=== PATIENT | female | born 1980 | race Caucasian/White ===

== ENCOUNTER → 2017-12-19 06:48 | Outpatient (CLI) | payer OTHER, SELFPAY ==
--- NOTE | 2017-12-19 06:55 | NM_ITS ---
CARDIOLITE SPECT MYOCARDIAL PERFUSION SCAN, REST AND STRESS: EXERCISE STRESS [facility] REVIEW QGS EF AND WALL MOTION EVALUATION: QPS - PERFUSION EVALUATION HISTORY: Chest pain, SOB, DM, Tobacco use DOSE: 9.53 mCi technetium 99m mibi intravenously at rest followed by 29.6 mCi technetium 99m mibi following the intravenous ministration of 0.4 mg of Lexiscan. Resting blood pressure is 127/76. Stress blood pressure 121/69. FINDINGS: Ejection fraction is calculated to be 69%. Decreased activity in the anterior wall with both stress and rest. Gated images calculated ejection fraction 69% with mid anterior apical dyskinesis. IMPRESSION: Anterior defect is consistent with breast attenuation however this could also represent a previous anterior transmural myocardial infarction. Gated images do suggest mid anterior apical defect suggestive of ischemia. Clinical correlation is advised. Normal ejection fraction
--- NOTE | 2017-12-19 07:48 | HMH.ITSHM ---
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 []SAPHRIS BENEFIBER BUSPAR VITAMIN D LEVOTHYROXINE LIPITOR LITHIUM METOPROLOL ASA PRAZOSIN PROZAC XANAX VISTRARIL LINZESS MIRALAX OXYBUTYNIN FOLIC ACID VITAMIN B12 PREVACID METFORMIN
== END ==
PROVIDERS: PCP Nurse Practitioner Family; Visit Provider Physician Assistant
DX: R07.9 Chest pain, unspecified (principal); I10 Essential (primary) hypertension; E78.5 Hyperlipidemia, unspecified
CPT/HCPCS: 78452; 93017; A9502; J2785

== ENCOUNTER → 2018-01-15 15:29 | Outpatient (CLI) | payer OTHER, SELFPAY ==
[2018-01-15 16:12] LABS: Blood Urea Nitrogen 5 mg/dL (7-18); Calcium 8.8 mg/dL (8.5-10.1); Carbon Dioxide 29 mmol/L (21.0-32.0); Chloride 101 mmol/L (98-107); Creatinine,Serum 1.07 mg/dL (0.55-1.02); Estimated Glomerular Filt Rate 57 ml/min (>60); GFR (African American) 69 ML/MIN (>60); Glucose 102 mg/dL (74-106); Magnesium 1.8 mg/dL (1.4-2.2); Sodium 139 mmol/L (136-145)
== END ==
PROVIDERS: Visit Provider Physician Assistant
DX: R60.9 Edema, unspecified (principal)
CPT/HCPCS: 36415; 80048; 83735

== ENCOUNTER 2022-10-29 09:28 | Emergency (ER) | payer OTHER, SELFPAY ==
--- NOTE | 2022-10-29 09:34 | EXP.UTC ---
Discharge Plan Disposition Patient Disposition: Home, Self-Care Condition: Good Prescriptions Prescriptions: New benzonatate [benzonatate] 100 mg capsule 100 mg PO TIDP PRN (Reason: Cough) Qty: 30 0RF amoxicillin [amoxicillin] 875 mg tablet 875 mg PO Q12H Qty: 20 0RF No Action cyclobenzaprine 10 mg tablet 10 mg PO NEEDED PRN (Reason: Pain (Scale Score 1-3)) Patient Comments: TAKE 1 TABLET BY MOUTH EVERY 8 HOURS NEEDED FOR PAIN OR MUSCLE SPASMS Rx Instructions: TAKE 1 TABLET BY MOUTH EVERY 8 HOURS NEEDED FOR PAIN atorvastatin 80 mg tablet 80 mg PO DAILY Patient Comments: TAKE 1 TABLET BY MOUTH EVERY DAY alprazolam 1 mg tablet 1 mg PO TID Patient Comments: TAKE 1 TABLET BY MOUTH 3 TIMES DAILY metoprolol succinate 50 mg tablet extended release 24 hr 75 mg PO DAILY Patient Comments: TAKE 1 AND 1/2 TABLETS BY MOUTH EVERY DAY prazosin 1 mg capsule 2 mg PO DAILY Patient Comments: TAKE 2 CAPSULES BY MOUTH EVERY EVENING isosorbide mononitrate 30 mg tablet extended release 24 hr 30 mg PO DAILY Patient Comments: TAKE 1 TABLET BY MOUTH EVERY DAY potassium chloride 10 mEq tablet extended release 10 meq PO DAILY Patient Comments: TAKE 1 TABLET BY MOUTH EVERY DAY *EMERGENCY REFILL* esomeprazole magnesium 40 mg capsule,delayed release(DR/EC) 40 mg PO DAILY Patient Comments: TAKE 1 CAPSULE BY MOUTH EVERY DAY levothyroxine 125 mcg tablet 125 mcg PO DAILY Patient Comments: TAKE 1 TABLET BY MOUTH EVERY MORNING ON AN EMPTY STOMACH estradiol 2 mg tablet 2 mg PO DAILY Patient Comments: TAKE 1 TABLET BY MOUTH DAILY furosemide 20 mg tablet 20 mg PO NEEDED PRN (Reason: .) Patient Comments: TAKE 1 TABLET BY MOUTH EVERY DAY NEEDED FOR SWELLING paroxetine HCl 40 mg tablet 20 mg PO DAILY Patient Comments: TAKE 1/2 TABLET BY MOUTH EVERY NIGHT AT BEDTIME FOR 10 DAYS THEN TAKE 1 TABLET BY MOUTH AT BEDTIME THEREAFTER metformin 500 mg tablet extended release 24 hr 500 mg PO DAILY Patient Comments: TAKE 1 TABLET BY MOUTH EVERY DAY lamotrigine 100 mg tablet 100 mg PO BID Patient Comments: TAKE 1 TABLET BY MOUTH TWICE DAILY prazosin 2 mg capsule 8 mg PO DAILY Patient Comments: TAKE FOUR (4) CAPSULES BY MOUTH AT BEDTIME desvenlafaxine succinate 100 mg tablet extended release 24 hr 100 mg PO DAILY Patient Comments: TAKE 1 TABLET BY MOUTH EVERY MORNING icosapent ethyl 1 gram capsule 2 g PO BID Patient Comments: TAKE 2 CAPSULES BY MOUTH TWICE DAILY armodafinil 200 mg tablet 200 mg PO DAILY Patient Comments: TAKE 1 TABLET BY MOUTH DAILY Vraylar 3 mg capsule 3 mg PO DAILY Emgality Syringe 120 mg/mL syringe 120 mg SQ MONTHLY Patient Comments: INJECT 120 MG SUBCUTANEOUSLY EVERY MONTH Nurtec ODT 75 mg tablet,disintegrating See Rx Instructions .ROUTE .COMPLEX Patient Comments: TAKE 1 TABLET BY MOUTH EVERY OTHER DAY Rx Instructions: TAKE 1 TABLET BY MOUTH EVERY OTHER DAY Gemtesa 75 mg tablet 75 mg PO DAILY Patient Comments: TAKE 1 TABLET BY MOUTH EVERY DAY Referrals Follow up/Referrals: Deadnra Lopez PA [Primary Care Provider] - See instructions Activity Restrictions/Add. Instructions Additional Instructions/Restrictions: Drink plenty of fluids. Take tylenol or ibuprofen for pain or fever. Take the medications as directed. Follow up with your regular doctor. GO TO THE ER FOR ANY WORSENING SYMPTOMS Clinical Impressions Clinical Impression: Sinusitis, Acute viral syndrome Instructions Patient Instructions: DI for Sinusitis, DI for Viral Syndrome, Coronavirus Disease 2019, Preventing the Spread of Coronavirus Discharge Instructions Discharge ED Provider: John Batista [facility] [place] General Stated complaint: c
[2022-10-29 09:35] VITALS: BP 140/63; PULSE 81; RESP 19; TEMP 36.6; O2SAT 98; BMI 36.8
[2022-10-29 09:51] LABS: UTC Strep Screen (Rapid) Negative (Negative)
[2022-10-29 10:21] VITALS: BP 140/63; PULSE 81; RESP 19; TEMP 36.6; O2SAT 98
== END 2022-10-29 10:21 | disposition home or self-care (01) ==
PROVIDERS: Emergency Provider Nurse Practitioner Family; PCP Nurse Practitioner Family
DX: J01.90 Acute sinusitis, unspecified (principal); B34.8 Other viral infections of unspecified site
CPT/HCPCS: 87635; 87880; 99204; 99212; G0463

== ENCOUNTER 2024-07-15 11:31 | Outpatient (CLI) | payer OTHER, SELFPAY ==
--- OUTSIDE RECORDS SUMMARY | 2024-05-22 10:39 | XMS_ITS | Encounter Summary ---
Author Organization [facility] RELEASEIF In iatives Address [address] [place] [address] Care Team Providers Care Telephone Station Repairer Name Role Phone Deandra Lopez APRN Primary Care Provider [phone] Reason for Visit * Auth/Cert (Routine) Specialty Diagnoses / Procedures Referred By Contac t Referred To Contact Diagnoses Abnormal defecation Abnormal defecation Procedures OH EXPLORATORY LAPAROTOMY CELIOTOMY W/WO BIOPSY SPX LAPAROTOMY, EXPLORATORY Heath Robledo MD [address] [place] [address] [address] [place] [address] Phone: tel: fax: Referral ID Status Reason Start Date Expiration Date Visits Re quested Visits Authorized [id number] 04/16/2024 1 1 Encounter Details Date Type Department Care Team (Late st Contact Info) Description 05/22/2024 10:39 AM EDT - 05/25/2024 5:00 PM EDT Hospital Encounter [facility] [address] [place] [address] Heath Robledo MD [address] [place] [address] [address] [place], [place] [id number] Aristides Pickering PA-C [facility] [address] [facility] [address] [place], [place] [id number] Carey Monroy PA-C [address] [place] [address] Ac Wilks MD [address] [facility] [address] [place], [place] [id number] Per Anderson MD [address] [facility] [address] [place], [place] [id number] Abnormal defecation Discharge Disposition: Home or Self Care Social History Tobacco Use Types Packs/Day Years Used Date Smoking Tobacco: Former Cigarettes Smokeless Tobacco: Never Alcohol Use Standard Drinks/Week Comments Never 0 (1 standard drink = 0.6 oz pur e alcohol) caffeine use PHQ-2 Answer Date Recorded Patient Health Questionnaire-2 Score 6 05/14/2024 Utilities Answer Date Recorded In the past 12 months, has t he electric, gas, oil, or water company threatened to shut off services in your home? No 05/22/2024 Interpersonal Safety Answer Date Record ed How often does anyone, ariela bella family and friends, physically hurt you? Never 05/22/2024 How often does anyone, ariela bella family and friends, insult or talk down to you? Never 05/22/2024 How often does anyone, ariela bella family and friends, threaten you with harm? Never 05/22/2024 How often does anyone, ariela bella family and friends, scream or curse at you? Never 05/22/2024 Housing Stability Answer Date Recorded What is your living situation today? I have a [facility] place to live 05/22/[address] you li ve. Do you have problems with any of the following? None of the above 05/22/2024 Food Insecurity Answer Date Recorded Within the past 12 months, y ou worried that your food would run out before you got money to buy more. Never true 05/22/2024 Within the past 12 months, t he food you bought just didn't last and you didn't have money to get more. Never true 05/22/2024 Transportation Needs Answer Date Record ed In the past 12 months, has l ack of reliable transportation kept you from medical appointments, meetings, work or from getting things needed for daily living? No 05/22/2024 Financial Resource Strain Answer Date R ecorded How hard is it for you to pa y for the very basics like food, housing, medical care, and heating? Would you say it is: Not hard at all 05/22/2024 Employment Answer Date Recorded Do you want help finding or keeping work or a job? I do not need or want help 05/22/2024 Family and Community Support Answer Clinton e Recorded If for any reason you need h elp with day-to-day activities such as bathing, preparing meals, shopping, managing finances, etc., do you get the help you need? I don't need any help 05/22/2024 Feeling Lonely or Isolated 0 05/22 Educational Attainment Answer Date Danyel rded Do you speak a language other than [place]ian at [facility]? No 05/22/2024 Do you want help with school or training? For example, starting or completing job training or getting a high school diploma, GED or equivalent. No 05/22/2024 Physical Activity Answer Date Recorded Number of minutes of exercise per week 0 05/22/2024 Alcohol Use Answer Date Recorded 5 or More Drinks Per Day Past 12 Months 0 05/22/2024 Depression Answer Date Recorded Calculation of above two rows 0 Stress Answer Date Recorded Stress means a situation in which a person feels tense, restless, nervous, or anxious, or is unable to sleep at night because his or her mind is troubled all the time. Do you feel this kind of stress these days? Not at all 05/22/2024 Disabilities Answer Date Recorded Because of a physical, menta l, or emotional condition, do you have serious difficulty concentrating, remembering, or making decisions? (5 years or older) No 05/22/2024 Because of a physical, menta l, or emotional condition, do you have difficulty doing errands alone such as visiting a doctor's office or shopping? (15 years or older) No 05/22/2024 Substance Use Answer Date Recorded How many times in the past y ear have you used prescription drugs for non-medical reasons? Never 05/22/2024 How many times in the past year have you used [place] legal drugs? Never 05/22/2024 Comments No Sex and Gender Information Value Date Recorded Sex Assigned at Female 12/08/2021 2:39 PM CDT Legal Sex Female 5:20 PM CDT Gender Identity Female 12/08/2021 2:39 PM CDT Sexual Orientation Straight 12/08/2021 2: 39 PM CDT documented as of this encounter Last Filed Vital Signs Vital Sign Reading Time Taken Comments Blood Pressure 113/65 05/25/2024 9:33 AM EDT Pulse 63 05/25/2024 9:33 AM EDT Temperature 36.7 C (98.1 F) 05/25/2024 9:33 AM EDT Respiratory Rate 19 05/25/2024 9:33 AM EDT Oxygen Saturation 98% 05/25/2024 9:33 AM EDT Inhaled Oxygen Concentration - - Weight 81.1 kg (178 lb 12.7 oz) 05/22/2024 8:24 PM EDT Height 165.1 cm (5' 5 ) 05/23/2024 2:19 PM EDT Body Mass Index 29.75 05/22/2024 8:24 PM EDT documented in this encounter Discharge Summaries * Per Anderson MD - 05/25/2024 1:06 PM EDT HOSPITALIST DISCHARGE SUMMARY Patient: Demetra Diaz Date of Admission: 05/22/2024 Date of Discharge: 05/25/2024 Primary Care Provider: @PCPENAME@ Hospital Problem List Patient Active Problem List Diagnosis Anxiety Chest pain CPAP (continuous positive airway pressure) dependence Depression Diabetes (HCC) Dizziness WIGGINS (dyspnea on exertion) Edema GERD (gastroesophageal reflux disease) HLD (hyperlipidemia) HTN (hypertension) Hypothyroidism IBS (irritable bowel syndrome) Migraines BETTY (obstructive sleep apnea) PTSD (post-traumatic stress disorder) Tachycardia Vitamin D deficiency Constipation Summary of Hospital Stay: Persistent hypotension resolved. 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 - informed to limit free water 6 cups daily , & watch for Stoma out put , instructions were given written - Hemoglobin has been stable 10 Status post ex lap end ileostomy creation 05/22/2024. -Dr. Robledo following is okay with discharge. Stoma is functioning well Diabetes hyperlipidemia - Insulin sliding scale - Continue gabapentin continue statin Hypertension Resume home medication metoprolol and prazosin. Hypothyroidism Continue Synthroid Depression/anxiety/mood disorders: Continue home Xanax continue Pristiq continue Lamictal continue armodafinil Abilify Bladder dysfunction - DC Batres continue mirabegron Diet: Orders Placed This Encounter Procedures NPO diet DVT ppx: SCDs PUD ppx: PPI Code Status: Full Code MDM: CT abd , hgb, Vitals are all stable, Na 126 can be follwoed as OP likely temporary drop due toSIADH & GI loss. Discharge Planning: May go home when blood pressure stable. Objective Vitals: Temp: [97.5 ??F (36.4 ??C)-98.6 ??F (37 ??C)] 98.1 ??F (36.7 ??C) Pulse: [58-70] 63 Resp: [16-19] 19 BP: (91-113)/(52-74) 113/65 Physical exam on day of discharge: HEENT eyes are clear and oropharynx clear Neck no JVD bruit Heart RRR without MRG Lungs CTAB Abdomen positive bowel sounds, ostomy noted in right lower quadrant, no bleeding, skin appears healthy Extremities no edema Neuro nonfocal Mental status exam awake alert and oriented Labs: Results for orders placed or performed during the hospital encounter of 05/22/24 (from the past 24 hours) CBC - Hemogram Status: Abnormal Collection Time: 05/24/24 1:18 PM Result Value Ref Range WBC 8.7 4.0 - 10.0 K/??L RBC 2.98 (L) 3.93 - 5.22 M/??L Hemoglobin 8.8 (L) 11.2 - 15.7 GM/DL Hematocrit 25.6 (L) 34.1 - 44.9 % MCV 86 79 - 95 fL MCH 29.5 25.6 - 32.2 pg MCHC 34.4 32.2 - 35.5 GM/DL RDW 12.0 11.7 - 14.4 % Platelets 240 140 - 375 K/CU MM MPV 9.1 (L) 9.4 - 12.3 fL Basic Metabolic Panel Status: Abnormal Collection Time: 05/24/24 1:18 PM Result Value Ref Range Sodium 125 (L) 136 - 145 meq/L Potassium 4.5 3.4 - 5.1 meq/L CO2 23 22 - 29 meq/L Chloride 97 (L) 98 - 112 meq/L Glucose 92 74 - 100 mg/dL BUN 4.6 (L) 7.0 - 18.7 mg/dL Creatinine 0.72 0.57 - 1.11 mg/dL BUN/Creatinine 6 (L) 8 - 20 Calcium 8.1 (L) 8.4 - 10.2 mg/dL Anion Gap 10 4 - 12 eGFR (mL/min/1.73m2) 105 >=60 mL/min/1.73m2 Osmolality Calc 248.3 mOsm/kg Prepare RBC: 2 Units Status: None Collection Time: 05/24/24 3:21 PM Result Value Ref Range Issue Date/Time [id number] Product Identification Red Blood Cells Product Code L5094A26 Status Information Transfused Unit Number [id number] Blood Type 5100 Cross Match Results Compatible Glucose, Nova Meter Status: None Collection Time: 05/24/24 4:35 PM Result Value Ref Range POC-GLUCOSE 98 70 - 110 mg/dL Hand Brush Filler [id number] Glucose, Nova Meter Status: None Collection Time: 05/25/24 12:01 AM Result Value Ref Range POC-GLUCOSE 101 70 - 110 mg/dL Hand Brush Filler [id number] Hemoglobin and hematocrit Status: Abnormal Collection Time: 05/25/24 1:24 AM Result Value Ref Range Hemoglobin 9.7 (L) 11.2 - 15.7 GM/DL Hematocrit 28.6 (L) 34.1 - 44.9 % Phosphorus Status: Normal Collection Time: 05/25/24 1:24 AM Result Value Ref Range Phosphorus 3.6 2.5 - 4.5 mg/dL Glucose, Nova Meter Status: None Collection Time: 05/25/24 6:06 AM Result Value Ref Range POC-GLUCOSE 102 70 - 110 mg/dL Hand Brush Filler [id number] CBC with automated diff Status: Abnormal Collection Time: 05/25/24 6:09 AM Result Value Ref Range WBC 6.7 4.0 - 10.0 K/??L RBC 3.57 (L) 3.93 - 5.22 M/??L Hemoglobin 10.3 (L) 11.2 - 15.7 GM/DL Hematocrit 30.2 (L) 34.1 - 44.9 % MCV 85 79 - 95 fL MCH 28.9 25.6 - 32.2 pg MCHC 34.1 32.2 - 35.5 GM/DL RDW 14.0 11.7 - 14.4 % Platelets 212 140 - 375 K/CU MM MPV 9.3 (L) 9.4 - 12.3 fL % Neutros 60 34 - 71 % % Lymphs 26 19 - 52 % % Monos 7 5 - 13 % % Eos 6 1 - 6 % % Baso 1 0 - 1 % NRBC Absolute <0.01 0 - 0.012 K/ul # Neutros 4.03 1.56 - 6.13 K/??L # Lymphs 1.72 1.18 - 3.74 K/??L # Monos 0.45 0.24 - 0.86 K/??L # Eos 0.43 (H) 0.04 - 0.36 K/??L # Baso 0.04 0.01 - 0.08 K/??L Immature Granulocytes-Relative 0.30 0.01 - 0.43 % # IG <0.03 0.00 - 0.03 K/uL Basic Metabolic Panel Status: Abnormal Collection Time: 05/25/24 6:09 AM Result Value Ref Range Sodium 126 (L) 136 - 145 meq/L Potassium 4.3 3.4 - 5.1 meq/L CO2 21 (L) 22 - 29 meq/L Chloride 97 (L) 98 - 112 meq/L Glucose 90 74 - 100 mg/dL BUN 6.6 (L) 7.0 - 18.7 mg/dL Creatinine 0.79 0.57 - 1.11 mg/dL BUN/Creatinine 8 8 - 20 Calcium 8.3 (L) 8.4 - 10.2 mg/dL Anion Gap 12 4 - 12 eGFR (mL/min/1.73m2) 94 >=60 mL/min/1.73m2 Osmolality Calc 250.7 mOsm/kg Glucose, Nova Meter Status: None Collection Time: 05/25/24 12:42 PM Result Value Ref Range POC-GLUCOSE 83 70 - 110 mg/dL Hand Brush Filler [id number] Radiology: CT ABDOMEN/PELVIS WITHOUT IV CONTRAST Standard Protocol Final Result Expected postoperative findings. Small amount of hemoperitoneum in the pelvis. Images reviewed, interpreted and dictated by Dr. John Edouard MD XR chest AP portable Final Result Hypoaeration and pulmonary vascular congestion. SINGLE VIEW ABDOMEN HISTORY: Abdominal pain. FINDINGS: ABDOMEN: Single view of the abdomen demonstrates a nonspecific bowel gas pattern. No abnormal calcifications.Cholecystectomy clips are present. IMPRESSION: Nonspecific bowel gas pattern. Images reviewed, interpreted, and dictated by Dr. Janusz Murray. Transcribed by Jarrod Ruiz PA-C. XR KUB PORTABLE Final Result Hypoaeration and pulmonary vascular congestion. SINGLE VIEW ABDOMEN HISTORY: Abdominal pain. FINDINGS: ABDOMEN: Single view of the abdomen demonstrates a nonspecific bowel gas pattern. No abnormal calcifications.Cholecystectomy clips are present. IMPRESSION: Nonspecific bowel gas pattern. Images reviewed, interpreted, and dictated by Dr. Janusz Murray. Transcribed by Jarrod Ruiz PA-C. Discharge Information Medications on Discharge: Your medication list START taking these medications Instructions Comments Quantity Refills acetaminophen 500 MG tablet Commonly known as: TYLENOL Take 2 tablets (1,000 mg total) by mouth every 6 (six) hours for 10 days. 30 tablet 0 ondansetron 4 MG disintegrating tablet Commonly known as: ZOFRAN-ODT Take 1 tablet (4 mg total) by mouth every 8 (eight) hours as needed for nausea or vomiting for up to 7 days. 20 tablet 0 oxyCODONE 5 MG immediate release tablet Commonly known as: ROXICODONE Take 1 tablet (5 mg total) by mouth every 4 (four) hours as needed for up to 3 days Look-alike/Sound-alike medication. Max Daily Amount: 30 mg 20 tablet 0 potassium, sodium phosphates 280-160-250 mg Pwpk packet Commonly known as: PHOS-NAK Take 1 packet by mouth 2 (two) times daily for 5 days. 10 packet 0 simethicone 80 MG chewable tablet Commonly known as: MYLICON Take 1 tablet (80 mg total) by mouth every 6 (six) hours as needed for up to 10 days. 30 tablet 0 CONTINUE taking these medications Instructions Comments Quantity Refills Aimovig Autoinjector 140 mg/mL Atin Generic drug: erenumab-aooe Inject 70 mg under the skin every 30 (thirty) days. 0 ALPRAZolam 1 MG tablet Commonly known as: XANAX Take 1 tablet (1 mg total) by mouth 2 (two) times daily. Max Daily Amount: 2 mg 0 armodafiniL 200 mg Tab Take 1 tablet by mouth daily. 0 atorvastatin 80 MG tablet Commonly known as: LIPITOR Take 1 tablet (80 mg total) by mouth nightly. 0 cyanocobalamin 500 MCG tablet Take 1 tablet (500 mcg total) by mouth daily. 0 desvenlafaxine 100 MG 24 hr tablet Commonly known as: PRISTIQ Take 1 tablet (100 mg total) by mouth daily. 0 esomeprazole 40 MG capsule Commonly known as: NexIUM Take 1 capsule (40 mg total) by mouth daily. 0 estradioL 0.1 mg/24 hr patch Commonly known as: CLIMARA Place 1 patch on the skin once a week. 0 famotidine 40 MG tablet Commonly known as: PEPCID Take 1 tablet (40 mg total) by mouth nightly. 0 furosemide 20 MG tablet Commonly known as: LASIX Take 1 tablet (20 mg total) by mouth daily as needed. 0 gabapentin 300 MG capsule Commonly known as: NEURONTIN Take 1 capsule (300 mg total) by mouth nightly. 0 icosapent ethyL 1 gram Cap capsule Commonly known as: VASCEPA Take 2 capsules (2 g total) by mouth 2 (two) times daily. 0 isosorbide mononitrate 30 MG 24 hr tablet Commonly known as: IMDUR Take 1 tablet (30 mg total) by mouth daily. 30 tablet 10 lamoTRIgine 150 MG tablet Commonly known as: LaMICtal Take 1 tablet (150 mg total) by mouth 2 (two) times daily. 0 levothyroxine 125 MCG tablet Commonly known as: SYNTHROID Take 1 tablet (125 mcg total) by mouth Every morning on an empty stomach. 0 metoprolol succinate 50 MG 24 hr tablet Commonly known as: TOPROL-XL Take 1 tablet (50 mg total) by mouth 2 (two) times daily. 0 Myrbetriq 50 mg Tb24 ER tablet Generic drug: mirabegron Take 1 tablet (50 mg total) by mouth daily. 0 Nurtec ODT 75 mg Tbdl Generic drug: rimegepant Take 1 tablet by mouth every other day. 0 potassium chloride 20 mEq CR tablet Commonly known as: KLOR-CON Take 1 tablet (20 mEq total) by mouth daily as needed. 0 prazosin 2 MG capsule Commonly known as: MINIPRESS Take 3 capsules (6 mg total) by mouth nightly. 0 Rexulti 2 mg Tab tablet Generic drug: brexpiprazole Take 1 tablet (2 mg total) by mouth daily. 0 Where to Get Your Medications These medications were sent to [address] [place] [address] [facility] [address] [facility] [address] acetaminophen 500 MG tablet ondansetron 4 MG disintegrating tablet oxyCODONE 5 MG immediate release tablet potassium, sodium phosphates 280-160-250 mg Pwpk packet simethicone 80 MG chewable tablet Contact information for follow-up Primary care provider (PCP) Next Steps: Follow up Deandra Lopez APRN Specialty: Nurse Practitioner Relationship: PCP - General [address] [facility] [address] Next Steps: Follow up [facility] Nurse Next Steps: Follow up in 3 day(s) Heath Robledo MD Specialty: Colon and Rectal Surgery [facility] [facility] [address] [facility] [address] Next Steps: Follow up in 1 week(s) Discharge Disposition:Home Time spent on Discharge: > 30 minutes Signed: Electronically signed by Per Anderson MD - 05/25/2024 - 1:06 PM EDT [facility] documented in this encounter Discharge Instructions * Attachments The following attachments cannot be sent through Care Everywhere. * Exploratory Laparotomy Adult Care After (Slovenian) * Ileostomy Care After (Slovenian) * Ileostomy Home Guide (Slovenian) * Ondansetron Tablets (Slovenian) * Oxycodone Capsules or Tablets (Slovenian) * SIMETHICONE ORAL TABLET (KYRGYZ) * Potassium Phosphate; Sodium Phosphate Solution (Slovenian) documented in this encounter Medications at Time of Discharge ALPRAZolam (XANAX) 1 MG tablet Take 1 tablet (1 mg total) by mouth 2 (two) times daily as needed for anxiety. armodafiniL 200 mg Tab Take 1 tablet by mouth daily. 04/04/2022 atorvastatin (LIPITOR) 80 MG tablet Take 1 tablet (80 mg total) by mouth nightly. cyanocobalamin 500 MCG tablet Take 1 tablet (500 mcg total) by mouth daily. desvenlafaxine succinate (PRISTIQ) 100 MG 24 hr tablet Take 1 tablet (100 mg total) by mouth daily. esomeprazole (NexIUM) 40 MG capsule Take 1 capsule (40 mg total) by mouth daily. 02/25/2022 estradioL (CLIMARA) 0.1 mg/[address] 1 patch on the skin once a week. icosapent ethyL (VASCEPA) 1 gram capsule Take 2 capsules (2 g total) by mouth 2 (two) times daily. 03/29/2022 isosorbide mononitrate (IMDUR) 30 MG 24 hr tabletIndications:Hy pertension, unspecified type Take 1 tablet (30 mg total) by mouth daily. 30 tablet 10 01/08/2024 lamoTRIgine (LaMICtal) 150 MG tablet Take 1 tablet (150 mg total) by mouth 2 (two) times daily. levothyroxine (SYNTHROID, LEVOTHROID) 125 MCG tablet Take 1 tablet (125 mcg total) by mouth Every morning on an empty stomach. metoprolol succinate (TOPROL-XL) 50 MG 24 hr tablet Take 1 tablet (50 mg total) by mouth 2 (two) times daily. potassium chloride (KLOR-CON) 20 mEq CR tablet Take 1 tablet (20 mEq total) by mouth daily as needed Take with Lasix as directed. 03/25/2022 prazosin (MINIPRESS) 2 MG capsule Take 3 capsules (6 mg total) by mouth nightly. gabapentin (NEURONTIN) 300 MG capsule Take 1 capsule (300 mg total) by mouth nightly. 11/21/2023 5 ondansetron (ZOFRAN-ODT) 4 MG disintegrating tablet Take 1 tablet (4 mg total) by mouth every 8 (eight) hours as needed for nausea or vomiting for up to 7 days. 20 tablet 05/25/2024 5 oxyCODONE (ROXICODONE) 5 MG immediate release tablet Take 1 tablet (5 mg total) by mouth every 4 (four) hours as needed for up to 3 days Look-alike/S ound-alike medication. Max Daily Amount: 30 mg 20 tablet 05/25/2024 5 potassium, sodium phosphates (PHOS-NAK) 280-160-250 mg pwpk packet Take 1 packet by mouth 2 (two) times daily for 5 days. 10 packet 05/25/2024 5 acetaminophen (TYLENOL) 500 MG tablet Take 2 tablets (1,000 mg total) by mouth every 6 (six) hours for 10 days. 30 tablet 05/25/2024 5 Aimovig Autoinjector 140 mg/mL AtIn Inject 70 mg under the skin every 30 (thirty) days. 09/22/2023 5 famotidine (PEPCID) 40 MG tablet Take 1 tablet (40 mg total) by mouth nightly. 10/03/2023 5 furosemide (LASIX) 20 MG tablet Take 1 tablet (20 mg total) by mouth daily as needed (for Edema/Swelling ). 03/24/2022 5 Myrbetriq 50 mg Tb24 ER tablet Take 1 tablet (50 mg total) by mouth daily. 03/28/2023 5 Nurtec ODT 75 mg TbDL Take 1 tablet by mouth every other day. 03/26/2022 5 Rexulti 2 mg tab tablet Take 1 tablet (2 mg total) by mouth daily. 08/24/2023 5 simethicone (MYLICON) 80 MG chewable tablet Take 1 tablet (80 mg total) by mouth every 6 (six) hours as needed for up to 10 days. 30 tablet 05/25/2024 5 documented as of this encounter Progress Notes * Heath Robledo MD - 05/25/2024 10:33 AM EDT CRS note: Looking and feeling much better this morning. CT scan with expected postoperative changes and small amount of hemoperitoneum. Tolerated blood well. Labs checked and stable. Tolerating p.o.'s. Examination: Abdomen soft, nondistended. Wound clean and intact. Stoma pink and functioning. Impression: Status post creation of ileostomy. Plan: 1. Okay for discharge home today. 2. Have reviewed signs and symptoms for which she should give me a call. 3. Patient should be sent home with 20 Percocet tablets. 4. Patient knows to call my office on Monday to get a postop appointment. * Iza Jackson RN - 05/25/2024 7:52 AM EDT During the timeframe of [id number] patient care was provided through a virtually integrated care team model. Any physical assessments or hands-on patient care documented by this Virtual RN were completed with a clinician at the bedside and the virtual RN acting as a scribe/mentor. * Susan Miller RN - 05/25/2024 4:33 AM EDT During the timeframe of [id number] patient care was provided through a virtually integrated care team model. Any physical assessments or hands-on patient care documented by this Virtual RN were completed with a clinician at the bedside and the virtual RN acting as a scribe/mentor. * Mary Carmen Chavez RN - 05/24/2024 5:21 PM EDT During the timeframe of 8070-7321 patient care will be provided through a virtually integrated careteam model. Any physical assessments or hands-on patient care documented by this Virtual RN will becompleted with a clinician at the bedside and the virtual RN acting as a scribe/mentor. * Elli Davidson RN - 05/24/2024 2:22 PM EDT Discharge Plan Progress Note Visited patient at bedside. Explained CM role. Patient declined Home Health. Bag of ostomy supplies in chair; said she plans to call insurance. Elli Davidson RN * Ac Wilks MD - 05/24/2024 12:49 PM EDT Subjective The patient has no new complaints. Minimal abdominal pain. She is tolerating a clear liquid diet. She has had her ostomy training. She actually changed out her ostomy bag on her own today. Review of Systems Objective Last Recorded Vitals Blood pressure (!) 85/50, pulse 61, temperature 98.2 ??F (36.8 ??C), temperature source Oral, resp.rate 18, height 1.651 m (5' 5 ), weight 81.1 kg (178 lb 12.7 oz), SpO2 95%. Physical Exam HEENT eyes are clear and oropharynx clear Neck no JVD bruit Heart RRR without MRG Lungs CTAB Abdomen positive bowel sounds, ostomy noted in right lower quadrant, no bleeding, skin appears healthy Extremities no edema Neuro nonfocal Mental status exam awake alert and oriented Labs: Results for orders placed or performed during the hospital encounter of 05/22/24 (from the past 24 hours) Glucose, Nova Meter Status: Abnormal Collection Time: 05/23/24 3:49 PM Result Value Ref Range POC-GLUCOSE 127 (H) 70 - 110 mg/dL Hand Brush Filler [id number] Glucose, Nova Meter Status: Abnormal Collection Time: 05/23/24 7:44 PM Result Value Ref Range POC-GLUCOSE 113 (H) 70 - 110 mg/dL Hand Brush Filler [id number] Basic Metabolic Panel Status: Abnormal Collection Time: 05/24/24 12:54 AM Result Value Ref Range Sodium 126 (L) 136 - 145 meq/L Potassium 4.0 3.4 - 5.1 meq/L CO2 22 22 - 29 meq/L Chloride 95 (L) 98 - 112 meq/L Glucose 136 (H) 74 - 100 mg/dL BUN 6.4 (L) 7.0 - 18.7 mg/dL Creatinine 0.80 0.57 - 1.11 mg/dL BUN/Creatinine 8 8 - 20 Calcium 8.3 (L) 8.4 - 10.2 mg/dL Anion Gap 13 (H) 4 - 12 eGFR (mL/min/1.73m2) 93 >=60 mL/min/1.73m2 Osmolality Calc 253.2 mOsm/kg CBC - Hemogram (SJ-BKR) Status: Abnormal Collection Time: 05/24/24 12:54 AM Result Value Ref Range WBC 11.1 (H) 4.0 - 10.0 K/??L RBC 3.49 (L) 3.93 - 5.22 M/??L Hemoglobin 10.4 (L) 11.2 - 15.7 GM/DL Hematocrit 30.1 (L) 34.1 - 44.9 % MCV 86 79 - 95 fL MCH 29.8 25.6 - 32.2 pg MCHC 34.6 32.2 - 35.5 GM/DL RDW 12.3 11.7 - 14.4 % Platelets 267 140 - 375 K/CU MM MPV 9.2 (L) 9.4 - 12.3 fL High Sensitivity Troponin I Status: Normal Collection Time: 05/24/24 12:54 AM Result Value Ref Range Troponin I High Sensitivity (pg/mL) <5.0 <=14 pg/mL ECG 12 lead Status: None (In process) Collection Time: 05/24/24 12:58 AM Result Value Ref Range VENTRICULAR RATE EKG/MIN 63 BPM ATRIAL RATE (MCT) 63 BPM OH Interval 186 ms QRS-INTERVAL (MSEC) 92 ms QT Interval 444 ms QTC Interval 454 ms P [place] 15 degrees R AXIS (MCT) 45 degrees T Wave [place] 35 degrees [place] Diagnosis Normal sinus rhythm Low voltage QRS Borderline ECG When compared with ECG of 07-NOV-2021 10:56, ST no longer depressed in Anterior leads Nonspecific T wave abnormality no longer evident in Anterolateral leads Glucose, Nova Meter Status: Abnormal Collection Time: 05/24/24 5:53 AM Result Value Ref Range POC-GLUCOSE 151 (H) 70 - 110 mg/dL Hand Brush Filler [id number] Glucose, Nova Meter Status: Abnormal Collection Time: 05/24/24 10:18 AM Result Value Ref Range POC-GLUCOSE 127 (H) 70 - 110 mg/dL Hand Brush Filler [id number] XR KUB PORTABLE, XR chest AP portable Narrative: PORTABLE CHEST HISTORY: Shortness of breath. COMPARISON: 05/15/2024. FINDINGS: The heart is borderline in size. The mediastinum is unremarkable . The lungs are hypoaerated with perihilar vascular crowding . There is no pneumothorax . The osseous structures are unremarkable . Impression: Hypoaeration and pulmonary vascular congestion. SINGLE VIEW ABDOMEN HISTORY: Abdominal pain. FINDINGS: ABDOMEN: Single view of the abdomen demonstrates a nonspecific bowel gas pattern. No abnormal calcifications.Cholecystectomy clips are present. IMPRESSION: Nonspecific bowel gas pattern. Images reviewed, interpreted, and dictated by Dr. Janusz Murray. Transcribed by Jarrod Ruiz PA-C. Assessment Fecal dysfunction -S/P exploratory laparotomy with ileocolic anastomosis and end ileostomy creation on 05/22/[address]24 [address] Robledo. -Patient doing well, has follow-up next week with surgery and ostomy nurse -Per Dr. Robledo, will discontinue batres, decrease IVF, encourage ambulation and diet, and check labs in AM. Anticipate discharge home tomorrow if continues to progress well. Hyponatremia - 135 down to 126 - Patient had been on half-normal saline - Start normal saline on 418 - Repeat labs in the morning Hypotension - Patient does not appear to be septic - Likely due to dehydration - Place beta-bella on hold - Start normal saline - Ongoing monitoring Diabetes mellitus with hyperglycemia -Continue SSI Q6h for goal BG 110-180 while inpatient. -Continue home Gabapentin. HTN -Continue home Prazosin, metoprolol as prescribed. -As needed antihypertensives with parenteral hydralazine 10 mg every 6 hrs for BP> 160/100. -Placed Toprol on hold 05/24 due to low blood pressure Obesity HLD BMI 29.75. Complicates all aspects of care. -Continue home Vascpea, atorvastatin as prescribed. Hypothyroidism -Continue home Synthroid 125mcg QD. Anxiety Depression Mood disorder -Continue home Xanax 1mg BID, Pristiq 100mg QD, Lamictal 150mg BID, Armodafinil 200mg QD, and Prazosin 6mg QHS as prescribed. Abilify 10mg QD to substitute Brexiprazole. GERD -Continue Pepcid 40mg PO for GI prophylaxis. Bladder dysfunction -Continue home mirabegon as prescribed. Diet: Orders Placed This Encounter Procedures Clear Liquid diet DVT ppx: SQH #GI Ppx (if indicated): Pepcid #Code Status: Full Code #Medical decision maker: self Plan Addendum: Hemoglobin dropping, borderline blood pressure. Dr. Robledo aware. Subcu heparin placed onhold. Plan for stat CT scan of the abdomen pelvis. Transfused units packed red blood cells. 60 minutes of critical care time spent. * Sallie Solano RN - 05/24/2024 8:35 AM EDTSummary: Wound Care Consult Images from the original note were not included. 05/24/24 0835 Ostomy (Stool) Ileostomy RLQ Date First Assessed/Time First Assessed: 05/22/241929 Ostomy Type: Ileostomy Location: RLQ Ostomy Status Functioning;Moist Stoma Color Red Peristomal Skin Intact Interventions Change pouch;Cleanse skin;Cleanse stoma [facility] RN follow up for reinforcement of ostomy teaching. Patient resting on JIMMIE surface, agreeable toeducation/demonstration. Patient has attended ostomy clinical multiple times prior to sx with Dr. Robledo for ostomy teaching/care. Patient verbalized/demonstrates understanding of pouch change, cleansing site and cleaning opening post emptying. Patient demonstrated pouch change at bedside and performed task correctly. Patient feels comfortable with taking care of ostomy at home. [facility] RN recommended home health with patient upon discharge and patient agreed to have home health until more established with routine at home. Reviewed wear time and pouch emptying at ? to ?? full. Reviewed DME process of ordering supplies. Contact information provided with request to notify [facility] RN of ostomy support, troubleshooting needs. Offered follow up appointment for early next week, patient agreed and appointment scheduled for Monday(05/28). Ostomy supplies left with patient to take home. Current Ostomy Supplies: Sujata Blue convex, two piece system (#[id number], #[id number]) [employer] Ostomy Ring, 2 #7805 Stoma Powder #[id number] [place] [employer] [place] #[id number] * Heath Robledo MD - 05/24/2024 7:31 AM EDT CRS note: Patient up and walking yesterday. Primary complaint is that of pain. Stoma functioning. Batres catheter out and urinating. Examination: Wound clean and intact. Abdomen soft. Stoma pink and functioning. Impression: Status post ex lap with takedown of ileocolic anastomosis and creation of end ileostomy. Plan: 1. Okay with discharge home today. 2. Will need home health for stoma care. 3. Follow-up with Dr. Robledo 1 week. 4. Patient to be discharged with 20 Percocet tablets. * Geraldine Lacey RN - 05/23/2024 8:07 PM EDT During the timeframe of 9313-2456 patient care was provided through a virtually integrated care team model. Any physical assessments or hands-on patient care documented by this Virtual RN were completed with a clinician at the bedside and the virtual RN acting as a scribe/mentor * Mary Carmen Chavez RN - 05/23/2024 3:47 PM EDT During the timeframe of 1757-6516 patient care will be provided through a virtually integrated careteam model. Any physical assessments or hands-on patient care documented by this Virtual RN will becompleted with a clinician at the bedside and the virtual RN acting as a scribe/mentor. * Carey Monroy PA-C - 05/23/2024 7:31 AM EDT Hospitalist Progress Note Date of Service: 05/23/2024 PCP: Deandra Lopez APRN Chief Complaint: constipation Subjective Demetra Diaz is a 44 y.o. female on hospital day 1. The principal reason for today's follow up visit is Constipation. Interval History: - Patient seen and evaluated this morning. She is s/p exploratory laparotomy due to issues with constipation/defection. - Reported nausea/vomiting after procedure last night. No N/V today. Reported LLQ pain. - Encouraging ambulation and diet. Per Dr. Robledo, anticipate dc tomorrow if continues to progress well. Review of Systems Constitutional: Negative for chills and fever. Eyes: Negative for blurred vision. Respiratory: Negative for cough and shortness of breath. Cardiovascular: Negative for chest pain and palpitations. Gastrointestinal: Positive for abdominal pain and nausea. Negative for diarrhea and vomiting. Genitourinary: Negative for dysuria and hematuria. Neurological: Negative for dizziness and focal weakness. Objective Vitals: Temp: [97.3 ??F (36.3 ??C)-98.8 ??F (37.1 ??C)] 97.7 ??F (36.5 ??C) Pulse: [55-73] 72 Resp: [15-18] 18 BP: (87-123)/(49-73) 103/57 Intake/Output: Intake/Output Summary (Last 24 hours) at 05/23/2024 1328 Last data filed at 05/23/2024 0038 Gross per 24 hour Intake 1050 ml Output 510 ml Net 540 ml Physical Exam Vitals and nursing note reviewed. Constitutional: General: She is not in acute distress. Appearance: Normal appearance. She is obese. HENT: Head: Normocephalic and atraumatic. Cardiovascular: Rate and Rhythm: Normal rate and regular rhythm. Pulses: Normal pulses. Heart sounds: Normal heart sounds. Pulmonary: Effort: Pulmonary effort is normal. No respiratory distress. Breath sounds: Normal breath sounds. No wheezing or rales. Abdominal: General: Abdomen is flat. There is no distension. Palpations: Abdomen is soft. Tenderness: There is abdominal tenderness (LLQ). Comments: Ileostomy Musculoskeletal: General: Normal range of motion. Skin: General: Skin is warm and dry. Capillary Refill: Capillary refill takes less than 2 seconds. Neurological: General: No focal deficit present. Mental Status: She is alert and oriented to person, place, and time. Mental status is at baseline. Motor: No weakness. Psychiatric: Mood and Affect: Mood normal. Behavior: Behavior normal. Thought Content: Thought content normal. Labs: Recent Labs Lab(s) Units 05/23/24 1059 05/23/24 0832 05/23/24 0831 05/23/24 0518 WBC K/??L -- 12.7* -- -- HGB GM/DL -- 11.0* -- -- HCT % -- 32.2* -- -- PLT K/CU MM -- 298 -- -- MG mg/dL -- -- 2.2 -- NA meq/L -- -- 129* -- K meq/L -- -- 4.5 -- CL meq/L -- -- 100 -- CO2 meq/L -- -- 23 -- BUN mg/dL -- -- 4.4* -- CREATININE mg/dL -- -- 0.72 -- EGFR mL/min/1.73m2 -- -- 105 -- GLUCOSE mg/dL 100 -- 110* 146* CALCIUM mg/dL -- -- 8.2* -- Scheduled Meds: acetaminophen 1,000 mg oral Q6H 1,000 mg at 05/22/241900 And ketorolac 15 mg intravenous Q6H 15 mg at 05/23/24 0740 ALPRAZolam 1 mg oral BID 1 mg at 05/23/24 0852 alvimopan 12 mg oral BID 12 mg at 05/23/24 0852 ARIPiprazole 10 mg oral Daily armodafiniL 1 tablet oral Daily atorvastatin 80 mg oral Every Night desvenlafaxine 100 mg oral Daily 100 mg at 05/23/24 1226 famotidine 40 mg oral Every Night gabapentin 300 mg oral Every Night heparin 5,000 Units subcutaneous Q12H 5,000 Units at 05/23/24 0852 icosapent ethyL 2 g oral BID 2 g at 05/23/24 1230 insulin lispro 0-18 Units subcutaneous 4x Daily AC isosorbide mononitrate 30 mg oral Daily 30 mg at 05/23/24 0852 lamoTRIgine 150 mg oral BID 150 mg at 05/23/24 0852 levothyroxine 125 mcg oral QAM metoprolol succinate 50 mg oral BID 50 mg at 05/23/24 0852 mirabegron 50 mg oral Daily 50 mg at 05/23/24 1228 prazosin 6 mg oral Every Night scopolamine 1 patch transdermal (scopolamine) Once 1.5 mg at 05/22/24 1149 Continuous Infusions: Current Facility-Administered Medications Medication Dose Route Frequency Provider Last Rate Last Admin acetaminophen (TYLENOL) tablet 1,000 mg 1,000 mg oral Q6H Heath Robledo MD 1,000 mg at 05/22/241900 And ketorolac (TORADOL) injection 15 mg 15 mg intravenous Q6H Heath Robledo MD 15 mg at 05/23/24 0740 ALPRAZolam (XANAX) tablet 1 mg 1 mg oral BID Aristides Pickering PA-C 1 mg at 05/23/24 0852 alvimopan (ENTEREG) capsule 12 mg 12 mg oral BID Heath Robledo MD 12 mg at 05/23/24 0852 ARIPiprazole (ABILIFY) tablet 10 mg 10 mg oral Daily Aristides Pickering PA-C armodafinil 200mg tablet patient's own medication supply 1 tablet oral Daily Aristides Pickering PA-C atorvastatin (LIPITOR) tablet 80 mg 80 mg oral Every Night Aristides Pickering PA-C desvenlafaxine (PRISTIQ) ER 24 hr tablet 100 mg 100 mg oral Daily Aristides Pickering PA-C 100 mg at 05/23/24 1226 dextrose 5 % and sodium chloride 0.45 % with KCl 20 mEq/L infusion (premix) 75 mL/hr intravenous Continuous Heath Robledo MD 75 mL/hr at 05/23/24 0643 75 mL/hr at 05/23/24 0643 dextrose 50% (D50W) injection 25 g 25 g intravenous Q15 Min PRN Aristides Pickering PA-C diazePAM (VALIUM) injection 2.5 mg 2.5 mg intravenous Q6H PRN Heath Robledo MD 2.5 mg at 05/23/24 0029 famotidine (PEPCID) tablet 40 mg 40 mg oral Every Night Aristides Pickering PA-C gabapentin (NEURONTIN) capsule 300 mg 300 mg oral Every Night Aristides Pickering PA-C glucagon injection 1 mg 1 mg intraMUSCULAR Q15 Min PRN Aristides Pickering PA-C glucose chew tab 16 g 16 g oral Q15 Min PRN Aristides Pickering PA-C heparin injection 5,000 Units 5,000 Units subcutaneous Q12H Heath Robledo MD 5,000 Units at 852 icosapent ethyL (VASCEPA) capsule 2 g 2 g oral BID Aristides Pickering PA-C 2 g at 05/23/24 1230 insulin lispro (HUMALOG, ADMELOG) injection 0-18 Units 0-18 Units subcutaneous 4x Daily AC Aristides Pickering PA-C isosorbide mononitrate (IMDUR) 24 hr tablet 30 mg 30 mg oral Daily Aristides Pickering PA-C 30 mg at 05/23/24 0852 lamoTRIgine (LaMICtal) tablet 150 mg 150 mg oral BID Aristides Pickering PA-C 150 mg at 05/23/24 0852 levothyroxine (SYNTHROID) tablet 125 mcg 125 mcg oral QAM Aristides Pickering PA-C metoprolol succinate (TOPROL-XL) 24 hr tablet 50 mg 50 mg oral BID Aristides Pickering PA-C 50 mg at 05/23/24 0852 mirabegron (MYRBETRIQ) 24 hr tablet 50 mg 50 mg oral Daily JENSEN Foster 50 mg at 228 ondansetron (ZOFRAN-ODT) disintegrating tablet 4 mg 4 mg oral Q8H PRN Heath Robledo MD Or ondansetron (ZOFRAN) injection 4 mg 4 mg intravenous Q8H PRN Heath Robledo MD 4 mg at 05/23/24 0349 oxyCODONE (ROXICODONE) immediate release tablet 5 mg 5 mg oral Q4H PRN Heath Robledo MD 5 mg at 05/23/24 1011 prazosin (MINIPRESS) capsule 6 mg 6 mg oral Every Night Aristides Pickering PA-C scopolamine (TRANSDERM-SCOP) patch 1 mg/72 hr 1 patch transdermal (scopolamine) Once Heath Robledo MD 1.5 mg at 05/22/24 1149 Assessment and Plan Fecal dysfunction -S/p exploratory laparotomy with ileocolic anastomosis and end ileostomy creation on 05/22/[address] Robledo. -Per Dr. Robledo, will discontinue batres, decrease IVF, encourage ambulation and diet, and check labs in AM. Anticipate discharge home tomorrow if continues to progress well. Hyponatremia -135 > 129. -Patient on D5 hypotonic saline Kcl per surgery. Diabetes mellitus with hyperglycemia -Continue SSI Q6h for goal BG 110-180 while inpatient. -Continue home Gabapentin. HTN -Continue home Prazosin, metoprolol as prescribed. -As needed antihypertensives with parenteral hydralazine 10 mg every 6 hrs for BP> 160/100. Obesity HLD BMI 29.75. Complicates all aspects of care. -Continue home Vascpea, atorvastatin as prescribed. Hypothyroidism -Continue home Synthroid 125mcg QD. Anxiety Depression Mood disorder -Continue home Xanax 1mg BID, Pristiq 100mg QD, Lamictal 150mg BID, Armodafinil 200mg QD, and Prazosin 6mg QHS as prescribed. Abilify 10mg QD to substitute Brexiprazole. GERD -Continue Pepcid 40mg PO for GI prophylaxis. Bladder dysfunction -Continue home mirabegon as prescribed. Diet: Orders Placed This Encounter Procedures Clear Liquid diet DVT ppx: SQH #GI Ppx (if indicated): Pepcid #Code Status: Full Code #Medical decision maker: self Discharge Planning: Barriers to discharge: Pending medical improvement, colorectal surgery clearance. Expected (tentative) discharge tomorrow Expected discharge disposition (home, SNF/Rehab, etc): Home Additional discharge needs or delays: TBD Carey Monroy PA-C 05/23/2024 at 7:31 AM Hospitalist [facility], [facility] Attending: Dr. Sylvester Voice prison guard supervisor technology (ki work) is used for dictation of this note and sound-alike words might be erroneously placed despite reviewing the note for accuracy. Errors in dictation mayreflect use of voice recognition software and not all errors in prison guard supervisor may have been detected prior to signing. Cosigned by Rj Sylvester MD at 05/27/2024 5:18 PM EDT * Heath Robledo MD - 05/23/2024 6:24 AM EDT CRS note: Patient clinically stable overnight. Vital signs stable. A.m. labs pending. Patient has been up and walking. Examination: Abdomen soft. Wound clean and intact. Stoma pink without output yet. Impression: Status post exploratory laparotomy and creation of end ileostomy. Plan: 1. DC Batres today. 2. Decrease IV fluids. 3. Encourage ambulation and diet. 4. Check labs in AM. 5. Anticipate discharge home tomorrow if continues to progress well. * Geraldine Lacey RN - 05/23/2024 3:21 AM EDT During the timeframe of 2411-8317 patient care was provided through a virtually integrated care team model. Any physical assessments or hands-on patient care documented by this Virtual RN were completed with a clinician at the bedside and the virtual RN acting as a scribe/mentor documented in this encounter H&P Notes * Aristides Pickering PA-C - 05/22/2024 7:51 PM EDT [facility]YSICAL Patient Name: Demetra Diaz : 1980 Date: 05/22/2024 PCP: Deandra Lopez APRN Date of Admission: 05/22/2024 Chief Complaint: Postoperative management History of Present Illness Demetra Diaz is a 44 y.o. female with a history of DM, hypertension, hyperlipidemia, GERD, hypothyroidism, IBS, BETTY on CPAP, PTSD, anxiety, depression, and obesity who presents to [facility] in [place], [place] for further evaluation and management of constipation. Family present at bedside during admissions interview. Patient has known history of abnormal defecation. 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 Since then, she hashad persistent diarrhea. Complicating her history is known pelvic floor dyssynergy and reports thatshe has been having issues with defecation for over 20 years. Initially, patient was conservativelymanaged on outpatient basis but this morning presents to our facility for planned exploratory laparotomy with Dr. Robledo. Per intraoperative note, patient tolerated the procedure well and there were no intraoperative complications. She was transferred the PACU and subsequently to medical-surgical unit for observation. Patient did undergo an ileostomy creation as well as extensive adhesion lysis in the OR. Postoperatively, patient has had persistent nausea with several episodes of vomiting. Otherwise, we have been asked to assist with inpatient management at this time. Past Medical History: Past Medical History: Diagnosis Date Anxiety Chest pain CPAP (continuous positive airway pressure) dependence Depression Diabetes (HCC) Dizziness WIGGINS (dyspnea on exertion) Edema GERD (gastroesophageal reflux disease) HLD (hyperlipidemia) HTN (hypertension) Hypothyroidism IBS (irritable bowel syndrome) Migraines BETTY (obstructive sleep apnea) PTSD (post-traumatic stress disorder) Tachycardia Vitamin D deficiency Past Surgical History: Past Surgical History: Procedure Laterality Date BACK SURGERY CARPAL TUNNEL RELEASE Bilateral SECTION CHOLECYSTECTOMY COLECTOMY COLONOSCOPY HYSTERECTOMY NECK SURGERY spinal cord stimulation SPINAL CORD STIMULATOR REMOVAL Social History: Social History Tobacco Use Smoking status: Former Types: Cigarettes Smokeless tobacco: Never Substance Use Topics Alcohol use: Never Comment: caffeine use Drug use: Never Family History: Family History Problem Relation Name Age of Onset Hyperlipidemia Mother Hypertension Mother Coronary artery disease Mother Diabetes Father Hyperlipidemia Father Hyperlipidemia Maternal Grandmother Tuberculosis Maternal Grandmother Tuberculosis Maternal Grandfather Cancer Paternal Grandfather Diabetes Other Hyperlipidemia Other Cancer Other Documented Allergies: Allergies Allergen Reactions Paroxetine Hives, Itching, Nausea Only, Palpitations and Shortness Of Breath Other Reaction(s): Dizziness, Headache, Not available Steroids Hives Wellbutrin [Bupropion Hcl] Hives Diclofenac Other (See Comments) Unknown Hydroxyzine Rash Prednisone Rash Pseudoephedrine Palpitations Sumatriptan Palpitations Tape, Permeable Adhesive Rash Documented MARKETING DATABASE COORDINATOR Medications: Medications Prior to Admission Medication Sig Dispense Refill Last Dose/Taking alprazolam (XANAX ORAL) Take 1 mg by mouth 2 (two) times daily. Max Daily Amount: 2 mg 05/22/2024 at4:00 AM armodafiniL 200 mg Tab Take 1 tablet by mouth daily. 05/22/2024 at 4:00 AM atorvastatin (LIPITOR) 80 MG tablet Take 1 tablet (80 mg total) by mouth nightly. Past Week cyanocobalamin (VITAMIN B-12) 1,000 mcg ER tablet Take 1 tablet (1,000 mcg total) by mouth daily. Past Week desvenlafaxine succinate (PRISTIQ) 100 MG 24 hr tablet Take 1 tablet (100 mg total) by mouth daily.05/22/2024 at 4:00 AM esomeprazole (NexIUM) 40 MG capsule Take 1 capsule (40 mg total) by mouth daily. 05/22/2024 at 4:00 AM famotidine (PEPCID) 40 MG tablet Take 1 tablet (40 mg total) by mouth nightly. 05/21/2024 at 9:00 PM furosemide (LASIX) 20 MG tablet Take 1 tablet (20 mg total) by mouth daily as needed. Past Week gabapentin (NEURONTIN) 300 MG capsule Take 1 capsule (300 mg total) by mouth nightly. 05/21/2024 icosapent ethyL (VASCEPA) 1 gram capsule Take 2 capsules (2 g total) by mouth 2 (two) times daily. 05/21/2024 isosorbide mononitrate (IMDUR) 30 MG 24 hr tablet Take 1 tablet (30 mg total) by mouth daily. 30 tablet 10 05/22/2024 at 4:00 AM lamoTRIgine (LaMICtal) 100 MG tablet Take 1.5 tablets (150 mg total) by mouth 2 (two) times daily. 05/22/2024 at 4:00 AM levothyroxine (SYNTHROID, LEVOTHROID) 125 MCG tablet Take 1 tablet (125 mcg total) by mouth Every morning on an empty stomach. 05/22/2024 at 4:00 AM metoprolol succinate (TOPROL-XL) 50 MG 24 hr tablet Take 1.5 tablets (75 mg total) by mouth daily. (Patient taking differently: Take 1 tablet (50 mg total) by mouth 2 (two) times daily.) 135 tablet at 4:00 AM Nurtec ODT 75 mg TbDL Take 1 tablet by mouth every other day. 05/22/2024 at 4:00 AM potassium chloride (KLOR-CON) 20 mEq CR tablet Take 1 tablet (20 mEq total) by mouth daily as needed. Past Week prazosin (MINIPRESS) 2 MG capsule Take 3 capsules (6 mg total) by mouth nightly. 05/21/2024 Rexulti 2 mg tab tablet Take 1 tablet (2 mg total) by mouth daily. 05/22/2024 at 4:00 AM Aimovig Autoinjector 140 mg/mL AtIn Inject 70 mg under the skin every 30 (thirty) days. 04/25/2024 estradioL (CLIMARA) 0.1 mg/[address] 1 patch on the skin once a week. Myrbetriq 50 mg Tb24 ER tablet Take 1 tablet (50 mg total) by mouth daily. Review of Systems A 14 point review of systems was obtained and is noncontributory except as noted below. Available past medical, social and family history reviewed. Review of Systems Constitutional: Negative for chills and fever. Respiratory: Negative for cough and shortness of breath. Cardiovascular: Negative for chest pain and palpitations. Gastrointestinal: Positive for nausea. Negative for abdominal pain and vomiting. Neurological: Negative for dizziness and headaches. Psychiatric/Behavioral: Negative for depression. The patient is not nervous/anxious. Objective Vitals: Temp: [97.3 ??F (36.3 ??C)-98.8 ??F (37.1 ??C)] 97.7 ??F (36.5 ??C) Pulse: [55-73] 64 Resp: [14-18] 16 BP: (87-123)/(49-77) 123/73 Intake/Output: Intake/Output Summary (Last 24 hours) at 05/23/2024 0108 Last data filed at 05/23/2024 0038 Gross per 24 hour Intake 1050 ml Output 510 ml Net 540 ml Physical Exam Constitutional: General: She is awake. She is not in acute distress. Appearance: She is obese. She is not ill-appearing. Interventions: Nasal cannula in place. HENT: Head: Normocephalic and atraumatic. Right Ear: External ear normal. Left Ear: External ear normal. Nose: Nose normal. Mouth/Throat: Mouth: Mucous membranes are moist. Pharynx: Oropharynx is clear. Eyes: Extraocular Movements: Extraocular movements intact. Conjunctiva/sclera: Conjunctivae normal. Pupils: Pupils are equal, round, and reactive to light. Cardiovascular: Rate and Rhythm: Normal rate and regular rhythm. Heart sounds: Normal heart sounds. Pulmonary: Effort: Pulmonary effort is normal. Breath sounds: Normal breath sounds. Abdominal: General: Bowel sounds are normal. Palpations: Abdomen is soft. Tenderness: There is no abdominal tenderness. Comments: Ostomy noted Genitourinary: Comments: Deferred Musculoskeletal: Cervical back: Normal range of motion. Right lower leg: No edema. Left lower leg: No edema. Skin: General: Skin is warm and dry. Coloration: Skin is pale. Neurological: General: No focal deficit present. Mental Status: She is alert and oriented to person, place, and time. Psychiatric: Behavior: Behavior is cooperative. Recent Labs: Results for orders placed or performed during the hospital encounter of 05/22/24 (from the past 24 hours) Type and Screen Status: None Collection Time: 05/22/24 11:43 AM Result Value Ref Range ABO/Rh O Positive Antibody Screen Negative HISTCHK HIST CHECK PERFORMED Glucose, Nova Meter Status: Abnormal Collection Time: 05/23/24 12:40 AM Result Value Ref Range POC-GLUCOSE 176 (H) 70 - 110 mg/dL Hand Brush Filler [id number] Microbiology Results (last 7 days) No results found for the last 168 hours. Radiology: Radiology Results (last 3 days) No results found for the last 72 hours. All Documented Medications: Scheduled Meds: acetaminophen 1,000 mg oral Q6H 1,000 mg at 05/22/24 1901 And ketorolac 15 mg intravenous Q6H 15 mg at 05/22/24 1900 ALPRAZolam 1 mg oral BID alvimopan 12 mg oral BID ARIPiprazole 10 mg oral Daily armodafiniL 1 tablet oral Daily atorvastatin 80 mg oral Every Night desvenlafaxine 100 mg oral Daily famotidine 40 mg oral Every Night gabapentin 300 mg oral Every Night heparin 5,000 Units subcutaneous Q12H icosapent ethyL 2 g oral BID insulin lispro 0-18 Units subcutaneous 4x Daily AC isosorbide mononitrate 30 mg oral Daily lamoTRIgine 150 mg oral BID levothyroxine 125 mcg oral QAM metoprolol succinate 50 mg oral BID mirabegron 50 mg oral Daily prazosin 6 mg oral Every Night scopolamine 1 patch transdermal (scopolamine) Once 1.5 mg at 05/22/24 1149 Continuous Infusions: Current Facility-Administered Medications Medication Dose Route Frequency Provider Last Rate Last Admin acetaminophen (TYLENOL) tablet 1,000 mg 1,000 mg oral Q6H Heath Robledo MD 1,000 mg at 05/22/24 190 And ketorolac (TORADOL) injection 15 mg 15 mg intravenous Q6H Heath Robledo MD 15 mg at 05/22/24 1900 ALPRAZolam (XANAX) tablet 1 mg 1 mg oral BID Aristides Pickering PA-C alvimopan (ENTEREG) capsule 12 mg 12 mg oral BID Heath Robledo MD ARIPiprazole (ABILIFY) tablet 10 mg 10 mg oral Daily Aristides Pickering PA-C armodafiniL tab 1 tablet 1 tablet oral Daily Aristides Pickering PA-C atorvastatin (LIPITOR) tablet 80 mg 80 mg oral Every Night Aristides Pickering PA-C desvenlafaxine (PRISTIQ) ER 24 hr tablet 100 mg 100 mg oral Daily Aristides Pickering PA-C dextrose 5 % and sodium chloride 0.45 % with KCl 20 mEq/L infusion (premix) 125 mL/hr intravenous Continuous Heath Robledo MD 125 mL/hr at 05/22/24 1900 125 mL/hr at 05/22/24 1900 dextrose 50% (D50W) injection 25 g 25 g intravenous Q15 Min PRN Aristides Pickering PA-C diazePAM (VALIUM) injection 2.5 mg 2.5 mg intravenous Q6H PRN Heath Robledo MD 2.5 mg at 05/23/24 0029 famotidine (PEPCID) tablet 40 mg 40 mg oral Every Night Aristides Pickering PA-C gabapentin (NEURONTIN) capsule 300 mg 300 mg oral Every Night Aristides Pickering PA-C glucagon injection 1 mg 1 mg intraMUSCULAR Q15 Min PRN Aristides Pickering PA-C glucose chew tab 16 g 16 g oral Q15 Min PRN Aristides Pickering PA-C heparin injection 5,000 Units 5,000 Units subcutaneous Q12H Heath Robledo MD icosapent ethyL (VASCEPA) capsule 2 g 2 g oral BID Aristides Pickering PA-C insulin lispro (HUMALOG, ADMELOG) injection 0-18 Units 0-18 Units subcutaneous 4x Daily AC Aristides Pickering PA-C isosorbide mononitrate (IMDUR) 24 hr tablet 30 mg 30 mg oral Daily Aristides Pickering PA-C lamoTRIgine (LaMICtal) tablet 150 mg 150 mg oral BID Aristides Pickering PA-C levothyroxine (SYNTHROID) tablet 125 mcg 125 mcg oral QAM Aristides Pickering PA-C metoprolol succinate (TOPROL-XL) 24 hr tablet 50 mg 50 mg oral BID Aristides Pickering PA-C mirabegron (MYRBETRIQ) 24 hr tablet 50 mg 50 mg oral Daily Aristides Pickering PA-C ondansetron (ZOFRAN-ODT) disintegrating tablet 4 mg 4 mg oral Q8H PRN Heath Robledo MD Or ondansetron (ZOFRAN) injection 4 mg 4 mg intravenous Q8H PRN Heath Robledo MD 4 mg at 05/22/24 1904 oxyCODONE (ROXICODONE) immediate release tablet 5 mg 5 mg oral Q4H PRN Heath Robledo MD prazosin (MINIPRESS) capsule 6 mg 6 mg oral Every Night Aristides Pickering PA-C scopolamine (TRANSDERM-SCOP) patch 1 mg/72 hr 1 patch transdermal (scopolamine) Once Heath Robledo MD 1.5 mg at 05/22/24 1149 Assessment and Plan Principal Problem: Constipation Active Problems: CPAP (continuous positive airway pressure) dependence Diabetes (HCC) Dizziness GERD (gastroesophageal reflux disease) HLD (hyperlipidemia) HTN (hypertension) Hypothyroidism IBS (irritable bowel syndrome) BETTY (obstructive sleep apnea) #Fecal dysfunction s/p exploratory lapaotomy with ileocolic anastomosis and end ileostomy creation -POD 0. -Reports persistent N/V postoperatively. PLAN -Colorectal Surgery following. -Ostomy education per Colorectal Surgery/[facility]. -Advance diet as tolerated per Colorectal Surgery recommendations. -Advance activity as tolerated per Colorectal Surgery recommendations. -GI/VTE prophylaxis per Colorectal Surgery. -Adequate pain control with parenteral analgesics. -As needed antiemetic with parenteral Zofran 4 mg every 8hrs for nausea. -Oral acetaminophen 650 mg every 6hrs for mild pain, oxycodone 5 mg every 4hrs for moderate/severe pain. #Diabetes mellitus #Obesity -Maintain goal BS between 110-180 with SSI ACHS/Q6h. -Diabetic diet when not NPO. -Continue statin. -Hypoglycemia protocol ordered. -Consider diabetes education if available. -Complicates all aspects of care. #HLD -Continue home Vascpea, atorvastatin as prescribed. #Diabetic neuropathy -Continue home gabapentin as prescribed. #Hypothyroidism -Continue home Synthroid dosing. #Anxiety #Depression #Mood disorder -Continue home Xanax, Abilify, Pristiq, Lamictal, and Rexulti as prescribed. #GERD -Continue Pepcid 40mg PO for GI prophylaxis. #HTN -Continue home Prazosin, metoprolol as prescribed. -As needed antihypertensives with parenteral hydralazine 10 mg every 6 hrs for BP> 160/100. #Bladder dysfunction -Continue home mirabegon as prescribed. -Laboratory work and pertinent imaging results independently reviewed as noted in HPI. -Continue to monitor electrolytes with AM metabolic panel and replete as appropriate. -Monitor WBC count to assess for developing / worsening infection and hemoglobin with AM CBC. -Intermittent BP and pulse oximetry monitoring per unit parameters. -Continue appropriate home medications for chronic problems as ordered below. -After reviewing this patient's presentation, labs, imaging, and medical record and discussion withsupervising physician, we have to decided to admit them. They will require inpatient admission requiring >48hrs for work up and stabilization of their condition. -High complexity of medical decision making required. -Evaluated 05/22/2024, 7:51 PM I, Aristides Pickering, have personally reviewed pertinent laboratory, EKG, and imaging results, as wellas documentation in the patient's EMR and discussed with supervising physician as necessary. Laboratory and imaging orders per the above plan have been reviewed and addressed, please see orders below. Home medications have been reviewed and restarted if appropriate. Patient's case, assessment, and plan have been discussed on this date with patient, family and RN. Glycemic control: Goal BS between 110-180 with SSI. Nutrition: Orders Placed This Encounter Procedures Clear Liquid diet GI prophylaxis: Pepcid VTE prophylaxis: Heparin SQ AM orders including labs/radiology/procedures placed. Code Status: Current Code Status Full code Disposition: Admit Prognosis: TBD Signed: Aristides Pickering PA-C 05/22/2024, 7:51 PM Voice prison guard supervisor technology (ki work) is used for dictation of this note and sound-alike words might be erroneously placed despite reviewing the note for accuracy. Errors in dictation mayreflect use of voice recognition software and not all errors in prison guard supervisor may have been detected prior to signing. Active Orders Lab Basic Metabolic Panel Frequency: AM Draw Number of Occurrences: 1 Occurrences CBC (Hemogram only) Frequency: AM Draw Number of Occurrences: 1 Occurrences Diet Clear Liquid diet Frequency: Effective Now Number of Occurrences: Until Specified Nursing Activity (specify) Frequency: Until Discontinued Number of Occurrences: Until Specified Order Comments: May ambulate unassisted if deemed safe by nurse Out of bed to chair on night of surgery, at least 1 hour with assistance. Ambulate evening of surgery Advance diet as tolerated Frequency: Until Discontinued Number of Occurrences: Until Specified Order Comments: Clear liquids to full liquids to GI Soft Diet. Please order appropriate new Diet Catheter care Frequency: Daily Number of Occurrences: Until Specified Order Comments: May D/C batres if patient has had 30ml/hr for 6 hours. Chewing gum (Sugar Free) Do not give to Illeostomy Patients. Frequency: Until Discontinued Number of Occurrences: Until Specified Order Comments: 30 minutes 3 times per day to increase saliva flow and provider gas pain relief Continuous Pulse Oximetry Frequency: Until Discontinued Number of Occurrences: Until Specified If patient not tolerating PO at 48 hours post op consult Poultry Packer Frequency: Until Discontinued Number of Occurrences: Until Specified Notify physician for blood glucose outside specified range Frequency: Until Discontinued Number of Occurrences: Until Specified Notify provider per standard parameters Frequency: Until Discontinued Number of Occurrences: Until Specified Nursing general assessments and interventions Frequency: Until Discontinued Number of Occurrences: Until Specified Order Comments: blood glucose 41-69 mg/dL AND can take oral Give 15 grams of carbohydrates: 4 ounces of juice or soda (not diet). Recheck blood glucose every 15 minutes and repeat 15 grams of carbohydrates until blood glucose is above 70 mg/dL. Give Meal or Snack Call Provider if not resolved after 3 treatments Repeat BS in 1 hour, retime for 1 hour after blood sugar greater than 70 mg/dL Strict intake and output Frequency: Q Shift Number of Occurrences: Until Specified Up with Assistance Frequency: Until Discontinued Number of Occurrences: Until Specified Order Comments: Patient should walk with assistance on first ambulation and if patient does well then may walk independently after that. Code Status Full code Frequency: Continuous Number of Occurrences: Until Specified Consult Inpatient consult to Hospitalist Frequency: Once Number of Occurrences: 1 Occurrences Order Comments: All stat consults require direct physician to physician communication. Wound ostomy eval and treat Frequency: Once Number of Occurrences: 1 Occurrences Point of Care Testing POC-Potassium Frequency: Once Number of Occurrences: 1 Occurrences Point of Care Testing-Docked Device POCT GLUCOSE Frequency: Once Number of Occurrences: 1 Occurrences Order Comments: Check POCT Glucose on any patient with a history of Diabetes Mellitus POCT glucose (follow-up for patients receiving insulin periopoeratively) Frequency: Once Number of Occurrences: 1 Occurrences POCT glucose : Eating Meals Frequency: 4 times daily before meals & at bedtime Number of Occurrences: 80 Occurrences Order Comments: Notify provider if patient becomes NPO, and convert blood glucose checks to every 6hours scheduled. POCT glucose for all diabetics and craniotomy patients Frequency: Once Number of Occurrences: 1 Occurrences POCT glucose in all patients who had a blood glucose Greater than 180 mg/dL preoperatively Frequency: Once Number of Occurrences: 1 Occurrences Medications acetaminophen (TYLENOL) tablet 1,000 mg Linked Order: And Frequency: Q6H Dose: 1,000 mg Route: oral ALPRAZolam (XANAX) tablet 1 mg Frequency: BID Dose: 1 mg Route: oral alvimopan (ENTEREG) capsule 12 mg Frequency: BID Dose: 12 mg Route: oral ARIPiprazole (ABILIFY) tablet 10 mg Frequency: Daily Dose: 10 mg Route: oral armodafiniL tab 1 tablet Frequency: Daily Dose: 1 tablet Route: oral Order Comments: OP Sig:Take 1 tablet by mouth daily. atorvastatin (LIPITOR) tablet 80 mg Frequency: Every Night Dose: 80 mg Route: oral Order Comments: OP Sig:Take 1 tablet (80 mg total) by mouth nightly. desvenlafaxine (PRISTIQ) ER 24 hr tablet 100 mg Frequency: Daily Dose: 100 mg Route: oral Order Comments: OP Sig:Take 1 tablet (100 mg total) by mouth daily. dextrose 5 % and sodium chloride 0.45 % with KCl 20 mEq/L infusion (premix) Frequency: Continuous Dose: 125 mL/hr Route: intravenous dextrose 50% (D50W) injection 25 g Frequency: Q15 Min PRN Dose: 25 g Route: intravenous diazePAM (VALIUM) injection 2.5 mg Frequency: Q6H PRN Dose: 2.5 mg Route: intravenous famotidine (PEPCID) tablet 40 mg Frequency: Every Night Dose: 40 mg Route: oral Order Comments: OP Sig:Take 1 tablet (40 mg total) by mouth nightly. gabapentin (NEURONTIN) capsule 300 mg Frequency: Every Night Dose: 300 mg Route: oral Order Comments: OP Sig:Take 1 capsule (300 mg total) by mouth nightly. glucagon injection 1 mg Frequency: Q15 Min PRN Dose: 1 mg Route: intraMUSCULAR glucose chew tab 16 g Frequency: Q15 Min PRN Dose: 16 g Route: oral heparin injection 5,000 Units Frequency: Q12H Dose: 5,000 Units Route: subcutaneous icosapent ethyL (VASCEPA) capsule 2 g Frequency: BID Dose: 2 g Route: oral Order Comments: OP Sig:Take 2 capsules (2 g total) by mouth 2 (two) times daily. insulin lispro (HUMALOG, ADMELOG) injection 0-18 Units Frequency: 4x Daily AC Dose: 0-18 Units Route: subcutaneous isosorbide mononitrate (IMDUR) 24 hr tablet 30 mg Frequency: Daily Dose: 30 mg Route: oral Order Comments: OP Sig:Take 1 tablet (30 mg total) by mouth daily. ketorolac (TORADOL) injection 15 mg Linked Order: And Frequency: Q6H Dose: 15 mg Route: intravenous lamoTRIgine (LaMICtal) tablet 150 mg Frequency: BID Dose: 150 mg Route: oral Order Comments: OP Sig:Take 1.5 tablets (150 mg total) by mouth 2 (two) times daily. levothyroxine (SYNTHROID) tablet 125 mcg Frequency: QAM Dose: 125 mcg Route: oral Order Comments: OP Sig:Take 1 tablet (125 mcg total) by mouth Every morning on an empty stomach. metoprolol succinate (TOPROL-XL) 24 hr tablet 50 mg Frequency: BID Dose: 50 mg Route: oral Order Comments: OP Sig:Take 1.5 tablets (75 mg total) by mouth daily. Patient taking differently: Take 1 tablet (50 mg total) by mouth 2 (two) times daily. mirabegron (MYRBETRIQ) 24 hr tablet 50 mg Frequency: Daily Dose: 50 mg Route: oral ondansetron (ZOFRAN) injection 4 mg Linked Order: Or Frequency: Q8H PRN Dose: 4 mg Route: intravenous ondansetron (ZOFRAN-ODT) disintegrating tablet 4 mg Linked Order: Or Frequency: Q8H PRN Dose: 4 mg Route: oral oxyCODONE (ROXICODONE) immediate release tablet 5 mg Frequency: Q4H PRN Dose: 5 mg Route: oral prazosin (MINIPRESS) capsule 6 mg Frequency: Every Night Dose: 6 mg Route: oral Order Comments: OP Sig:Take 3 capsules (6 mg total) by mouth nightly. scopolamine (TRANSDERM-SCOP) patch 1 mg/72 hr Frequency: Once Dose: 1 patch Route: transdermal (scopolamine) Cosigned by Von Qureshi DO at 05/23/2024 3:50 AM EDT Associated attestation - Von Qureshi DO - 05/23/2024 2:50 AM CDT Hospitalist service consulted postoperative from exploratory laparotomy with Dr. Robledo with colorectal surgery as she has been having a lot of issues with constipation and defecation. Bowel regimen and diet per colorectal surgery recommendations. Agree with rest of plan as documented. Von Qureshi D.O. 05/23/2024 3:50 * Elli Almanzar, KRISTYN - 05/22/2024 11:09 AM EDTSummary: Pre Operative History of Present Illness History Of Present Illness Demetra Diaz is a 44 y.o. female presenting with pertinent PMH of abnormal defecation. 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 Patient has had persistent diarrhea. She has a prior history of pelvic floor dyssynergia and reports she has been havingissues with defecation for over twenty years. Patient has been conservatively managed but continuesto have pain which is negatively impacting activities of daily living. This morning the patient complains of 0/10 pain but is anxious and request prayer from the hospital alessandro. Patient denies any acute illness, fevers, chills, nausea, diarrhea, CP and SOA at this time. Patient was evaluated by Dr. Robledo and presents today for an exploratory laparotomy with creation of end ileostomy. Past Medical History She has a past medical history of Anxiety, Chest pain, CPAP (continuous positive airway pressure) dependence, Depression, Diabetes (HCC), Dizziness, WIGGINS (dyspnea on exertion), Edema, GERD (gastroesophageal reflux disease), HLD (hyperlipidemia), HTN (hypertension), Hypothyroidism, IBS (irritable bowel syndrome), Migraines, BETTY (obstructive sleep apnea), PTSD (post-traumatic stress disorder), Tachycardia, and Vitamin D deficiency. Surgical History She has a past surgical history that includes Back surgery; section; Cholecystectomy; Hysterectomy; spinal cord stimulation; Colonoscopy; Colectomy; Neck surgery; Carpal tunnel release (Bilateral); and Spinal cord stimulator removal. Social History She reports that she has quit smoking. Her smoking use included cigarettes. She has never used smokeless tobacco. She reports that she does not drink alcohol and does not use drugs. Family History Her family history includes Cancer in her paternal grandfather and another family member; Coronary artery disease in her mother; Diabetes in her father and another family member; Hyperlipidemia in her father, maternal grandmother, mother, and another family member; Hypertension in her mother; Tuberculosis in her maternal grandfather and maternal grandmother. Allergies Paroxetine; Steroids; Wellbutrin [Bupropion Hcl]; Diclofenac; Hydroxyzine; Prednisone; Pseudoephedrine; Sumatriptan; and Tape, Permeable Adhesive Medications Current Outpatient Medications Medication Instructions Aimovig Autoinjector 140 mg/mL AtIn 1 mL, Every 30 days alprazolam (XANAX ORAL) 1 mg, 2 times daily armodafiniL 200 mg Tab 1 tablet, Daily atorvastatin (LIPITOR) 80 mg, Every Night cyanocobalamin (VITAMIN B-12) 1,000 mcg, Daily desvenlafaxine (PRISTIQ) 100 mg, Daily esomeprazole (NEXIUM) 40 mg, Daily estradioL (CLIMARA) 0.1 mg/24 hr patch 1 patch, transdermal, Weekly famotidine (PEPCID) 40 mg, Every Night furosemide (LASIX) 20 mg, Daily as needed gabapentin (NEURONTIN) 300 mg, Every Night icosapent ethyL (VASCEPA) 1 gram capsule 2 capsules, 2 times daily isosorbide mononitrate (IMDUR) 30 mg, oral, Daily lamoTRIgine (LAMICTAL) 150 mg, 2 times daily levothyroxine (SYNTHROID) 125 mcg, Every morning on an empty stomach metoprolol succinate (TOPROL-XL) 75 mg, oral, Daily Myrbetriq 50 mg, Daily Nurtec ODT 75 mg TbDL 1 tablet, Every other day potassium chloride (KLOR-CON) 20 mEq CR tablet 20 mEq, Daily as needed prazosin (MINIPRESS) 6 mg, Every Night Rexulti 2 mg tab tablet 1 tablet, Daily Review of Systems 14 Point ROS completed and non-contributory except as listed above Last Recorded Vitals There were no vitals taken for this visit. Physical Exam Constitutional: General: She is not in acute distress. Appearance: Normal appearance. She is obese. HENT: Head: Normocephalic and atraumatic. Nose: Nose normal. Mouth/Throat: Mouth: Mucous membranes are moist. Pharynx: Oropharynx is clear. Comments: Edentulous Eyes: Extraocular Movements: Extraocular movements intact. Conjunctiva/sclera: Conjunctivae normal. Pupils: Pupils are equal, round, and reactive to light. Cardiovascular: Rate and Rhythm: Normal rate and regular rhythm. Pulses: Normal pulses. Heart sounds: Normal heart sounds. Pulmonary: Effort: Pulmonary effort is normal. No respiratory distress. Breath sounds: Normal breath sounds. Abdominal: General: There is no distension. Musculoskeletal: Right lower leg: No edema. Left lower leg: No edema. Skin: General: Skin is warm and dry. Capillary Refill: Capillary refill takes less than 2 seconds. Neurological: General: No focal deficit present. Mental Status: She is alert and oriented to person, place, and time. Mental status is at baseline. Psychiatric: Mood and Affect: Mood normal. Behavior: Behavior normal. Diagnostic Results No visits with results within 1 Day(s) from this visit. Latest known visit with results is: Hospital Outpatient Visit on 05/15/2024 Component Date Value Ref Range Status WBC 05/15/2024 6.9 4.0 - 10.0 K/??L Final RBC 05/15/2024 3.75 (L) 3.93 - 5.22 M/??L Final Hemoglobin 05/15/2024 11.0 (L) 11.2 - 15.7 GM/DL Final Hematocrit 05/15/2024 33.2 (L) 34.1 - 44.9 % Final MCV 05/15/2024 89 79 - 95 fL Final MCH 05/15/2024 29.3 25.6 - 32.2 pg Final MCHC 05/15/2024 33.1 32.2 - 35.5 GM/DL Final RDW 05/15/2024 11.9 11.7 - 14.4 % Final Platelets 05/15/2024 287 140 - 375 K/CU MM Final MPV 05/15/2024 9.1 (L) 9.4 - 12.3 fL Final % Neutros 05/15/2024 64 34 - 71 % Final % Lymphs 05/15/2024 26 19 - 52 % Final % Monos 05/15/2024 8 5 - 13 % Final % Eos 05/15/2024 2 1 - 6 % Final % Baso 05/15/2024 1 0 - 1 % Final NRBC Absolute 05/15/2024 <0.01 0 - 0.012 K/ul Final # Neutros 05/15/2024 4.39 1.56 - 6.13 K/??L Final # Lymphs 05/15/2024 1.76 1.18 - 3.74 K/??L Final # Monos 05/15/2024 0.53 0.24 - 0.86 K/??L Final # Eos 05/15/2024 0.12 0.04 - 0.36 K/??L Final # Baso 05/15/2024 0.05 0.01 - 0.08 K/??L Final Immature Granulocytes-Relative 05/15/2024 0.30 0.01 - 0.43 % Final # IG 05/15/2024 <0.03 0.00 - 0.03 K/uL Final Hemoglobin A1C 05/15/2024 5.4 4.0 - 5.6 % Final eAVG Glucose 05/15/2024 108.28 70 - 126 mg/dL Final Sodium 05/15/2024 135 (L) 136 - 145 meq/L Final Potassium 05/15/2024 4.3 3.4 - 5.1 meq/L Final Chloride 05/15/2024 101 98 - 112 meq/L Final CO2 05/15/2024 28 22 - 29 meq/L Final Calcium 05/15/2024 9.0 8.4 - 10.2 mg/dL Final Glucose 05/15/2024 92 74 - 100 mg/dL Final BUN 05/15/2024 6.3 (L) 7.0 - 18.7 mg/dL Final Creatinine 05/15/2024 0.77 0.57 - 1.11 mg/dL Final BUN/Creatinine 05/15/2024 8 8 - 20 Final eGFR (mL/min/1.73m2) 05/15/2024 97 >=60 mL/min/1.73m2 Final Albumin 05/15/2024 4.0 3.5 - 5.0 g/dL Final Alkaline Phosphatase 05/15/2024 97 40 - 150 U/L Final ALT 05/15/2024 30 <=34 U/L Final AST 05/15/2024 37 (H) 11 - 34 U/L Final Total Bilirubin 05/15/2024 0.3 0.2 - 1.2 mg/dL Final Protein, Total 05/15/2024 7.2 6.4 - 8.3 g/dL Final Globulin 05/15/2024 3.2 2.5 - 4.1 g/dL Final Anion Gap 05/15/2024 10 4 - 12 Final A/G Ratio 05/15/2024 1.3 0.7 - 1.9 Final Osmolality Calc 05/15/2024 267.5 mOsm/kg Final X-ray chest PA and lateral Narrative: TWO VIEW CHEST HISTORY: Preoperative cardiopulmonary evaluation, hypertension. COMPARISON: November 2021. FINDINGS: The heart is normal in size. The mediastinum is unremarkable. The lungs are clear. There is no pneumothorax. Impression: No acute cardiopulmonary process. Images reviewed, interpreted, and dictated by Dr. Esperanza Dixon. Transcribed by Deandra Cain PA-C. Assessment & Plan Abnormal defecation -To OR for scheduled procedure BETTY, uses CPAP HTN GERD DM II HLD Migraines Vitamin D deficiency Anxiety -alessandro consult for prayer Electronically signed by: Elli Almanzar APRN, 05/22/2024 at 11:09 AM Cosigned by Heath Robledo MD at 05/22/2024 4:17 PM EDT documented in this encounter Consult Notes * Sylvia Castillo RD - 05/23/2024 2:[address] [facility] NUTRITION ASSESSMENT [facility] Nutrition Assessment The patient is a 44 y.o. female admitted with abnormal defecation and persistent diarrhea, pain impacting ADL's. Underwent Ex lap, takedown of ileal colic anastomosis and creation of end ileostomy 05/22. Present on Admission: Constipation (Admitting Diagnoses) Nutrition Evaluation Type: Initial Assessment Reason for Evaluation: MST=3 Subjective Comments: 05/23: Pt flagged for MST=3. She reports severe wt loss reflective of charted wt hx d/t decreased appetite and diarrhea. Pt eats only one meal daily at baseline. RD noted no muscle/fat wasting howeverpt meets criteria for severe PCM. Pt currently on CLD, POD#1, agreeable to ensure clear TID. D5 running. Will follow course. Past Medical/Surgical History: Past Medical History: Diagnosis Date Anxiety Chest pain CPAP (continuous positive airway pressure) dependence Depression Diabetes (HCC) Dizziness WIGGINS (dyspnea on exertion) Edema GERD (gastroesophageal reflux disease) HLD (hyperlipidemia) HTN (hypertension) Hypothyroidism IBS (irritable bowel syndrome) Migraines BETTY (obstructive sleep apnea) PTSD (post-traumatic stress disorder) Tachycardia Vitamin D deficiency Past Surgical History: Procedure Laterality Date BACK SURGERY CARPAL TUNNEL RELEASE Bilateral SECTION CHOLECYSTECTOMY COLECTOMY COLONOSCOPY HYSTERECTOMY NECK SURGERY spinal cord stimulation SPINAL CORD STIMULATOR REMOVAL Vitals and Basic Assessment: Vitals: Vitals: 05/23/24 0630 BP: Pulse: Resp: Temp: SpO2: 98% Oxygen: RA Delonte Scale: Delonte Scale Score: 20 Last BM: Last BM Date: 05/20/24 GI Symptoms: guarding, hypoactive BS, N/V Edema: none noted Skin: abdominal incision Allergies: Allergies Allergen Reactions Paroxetine Hives, Itching, Nausea Only, Palpitations and Shortness Of Breath Other Reaction(s): Dizziness, Headache, Not available Steroids Hives Wellbutrin [Bupropion Hcl] Hives Diclofenac Other (See Comments) Unknown Hydroxyzine Rash Prednisone Rash Pseudoephedrine Palpitations Sumatriptan Palpitations Tape, Permeable Adhesive Rash Scheduled Medications: Current Facility-Administered Medications Medication Dose Route Frequency Provider Last Rate Last Admin acetaminophen (TYLENOL) tablet 1,000 mg 1,000 mg oral Q6H Heath Robledo MD 1,000 mg at 05/22/24 1901 And ketorolac (TORADOL) injection 15 mg 15 mg intravenous Q6H Heath Robledo MD 15 mg at 05/23/24 0740 ALPRAZolam (XANAX) tablet 1 mg 1 mg oral BID Aristides Pickering PA-C 1 mg at 05/23/24 0852 alvimopan (ENTEREG) capsule 12 mg 12 mg oral BID Heath Robledo MD 12 mg at 05/23/24 0852 ARIPiprazole (ABILIFY) tablet 10 mg 10 mg oral Daily Aristides Pickering PA-C armodafinil 200mg tablet patient's own medication supply 1 tablet oral Daily Aristides Pickering PA-C atorvastatin (LIPITOR) tablet 80 mg 80 mg oral Every Night Aristides Pickering PA-C desvenlafaxine (PRISTIQ) ER 24 hr tablet 100 mg 100 mg oral Daily Aristides Pickering PA-C 100 mg at05/23/24 1226 dextrose 5 % and sodium chloride 0.45 % with KCl 20 mEq/L infusion (premix) 75 mL/hr intravenous Continuous Heath Robledo MD 75 mL/hr at 05/23/24 0643 75 mL/hr at 05/23/24 0643 dextrose 50% (D50W) injection 25 g 25 g intravenous Q15 Min PRN Aristides Pickering PA-C diazePAM (VALIUM) injection 2.5 mg 2.5 mg intravenous Q6H PRN Heath Robledo MD 2.5 mg at 05/23/24 0029 famotidine (PEPCID) tablet 40 mg 40 mg oral Every Night Aristides Pickering PA-C gabapentin (NEURONTIN) capsule 300 mg 300 mg oral Every Night Aristides Pickering PA-C glucagon injection 1 mg 1 mg intraMUSCULAR Q15 Min PRN Aristides Pickering PA-C glucose chew tab 16 g 16 g oral Q15 Min PRN Aristides Pickering PA-C heparin injection 5,000 Units 5,000 Units subcutaneous Q12H Heath Robledo MD 5,000 Units at 852 icosapent ethyL (VASCEPA) capsule 2 g 2 g oral BID Aristides Pickering PA-C 2 g at 05/23/24 1230 insulin lispro (HUMALOG, ADMELOG) injection 0-18 Units 0-18 Units subcutaneous 4x Daily AC Aristides Pickering PA-C isosorbide mononitrate (IMDUR) 24 hr tablet 30 mg 30 mg oral Daily Aristides Pickering PA-C 30 mg at 05/23/24 0852 lamoTRIgine (LaMICtal) tablet 150 mg 150 mg oral BID Aristides Pickering PA-C 150 mg at 05/23/24 0852 levothyroxine (SYNTHROID) tablet 125 mcg 125 mcg oral QAM Aristides Pickering PA-C metoprolol succinate (TOPROL-XL) 24 hr tablet 50 mg 50 mg oral BID Aristides Pickering PA-C 50 mg at 05/23/24 0852 mirabegron (MYRBETRIQ) 24 hr tablet 50 mg 50 mg oral Daily JENSEN Foster 50 mg at 228 ondansetron (ZOFRAN-ODT) disintegrating tablet 4 mg 4 mg oral Q8H PRN Heath Robledo MD Or ondansetron (ZOFRAN) injection 4 mg 4 mg intravenous Q8H PRN Heath Robledo MD 4 mg at 05/23/24 0349 oxyCODONE (ROXICODONE) immediate release tablet 5 mg 5 mg oral Q4H PRN Heath Robledo MD 5 mg at 05/23/24 1011 prazosin (MINIPRESS) capsule 6 mg 6 mg oral Every Night Aristides Pickering PA-C scopolamine (TRANSDERM-SCOP) patch 1 mg/72 hr 1 patch transdermal (scopolamine) Once Heath Robledo MD 1.5 mg at 05/22/24 1149 Drips: D5 @ 75ml/hr (provides 306kcal from dextrose) Pertinent Labs: Na 129, BUN 4 Anthropometrics: Ht: Height: 165.1 cm (5' 5 ) Wt: Weight: 81.1 kg (178 lb 12.7 oz) (05/22) Wt hx: Wt Readings from Last 20 Encounters: 05/22/24 81.1 kg (178 lb 12.7 oz) 05/15/24 83.9 kg (185 lb) 04/16/24 83.8 kg (184 lb 12.8 oz) 10/10/23 95.7 kg (211 lb) 09/19/23 95.7 kg (211 lb) 03/21/23 97.5 kg (215 lb) 04/19/22 102.5 kg (226 lb) 11/07/21 99.8 kg (220 lb) BMI: Body mass index is 29.75 kg/m??. Wt Change: loss % Wt Change: 15% loss x 7 months - severe UBW: 220# per EMR IBW: 125# Percent IBW: 143% Estimated Needs: 2059-8178 kcal (25kcal/kg actual wt VS MSJ X 1.4) 95-120gm pro (1.2-1.5gm/kg actual wt) Current Nutrition Intake: Diet Orders: Diet Order(s): Clear Liquid diet Supplements: Intake: CLD Enteral Nutrition? no Diet Experience and Nutrition History: Previous Nutrition Education: Unknown Diet Education Provided: will reassess need Nutrition Focused Physical Exam: Date performed: 05/23 Physical signs of fat or muscle wasting with severity: none noted Energy intake hx: one meal daily at baseline d/t decreased appetite & diarrhea Wt loss: 15% loss x 7 months - severe Assessment of Malnutrition: Patient meets criteria for SEVERE malnutrition. In Context Of: Chronic Illness Energy Intake: < 75% of est needs for > 3 months Weight Loss: >10% over 6 months Fat Loss: No loss identified Muscle Loss: No loss identified Fluid Accumulation: Unable to evaluate Present on Admission: Yes Nutrition Diagnoses: Problem #1: Chronic Disease Related Malnutrition Etiology: abnormal defecation,pain impacting ADL's, PMH Signs/Symptoms: severe wt loss and inadequate nutrient intake Status: New Problem #2: Inadequate Oral Intake Etiology: s/p ex lap with creation of end ileostomy Signs/Symptoms: CLD Status: New Nutrition Interventions and Recommendations: Collaboration with other providers Nutrition Monitoring and Goals: - Continue CLD as tolerated. PO diet advancement per Surgery. Will order ONS prn Goal: safe PO, diet advanced & tolerating - Monitor BG levels, recommend adjusting insulin prn. Goal: BG 100-180mg/dL - Obtain wt 2x weekly Goal: avoid involuntary significant wt change Nutrition Risk Level: High Risk *Severe PCM identified 05/23/24* Sylvia Castillo RD documented in this encounter OR Notes * Op Note - Heath Robledo MD - 05/22/2024 4:17 PM EDT Date: 05/22/2024 Procedures: Procedure(s): Exploratory laparotomy, takedown of ileal colic anastomosis and creation of end ileostomy. Extensive lysis of adhesions lasting 1 hour. Repair of 1 enterotomy. Diagnosis: Pre-Op Diagnosis Codes: * Abnormal defecation [R19.8] Post-Op Diagnosis Codes: * Abnormal defecation [R19.8] Indications: Demetra Diaz is an 44 y.o. female known to me for history of colonic inertia. I had previously performed subtotal colectomy and ileosigmoid resection several years ago. Patient has continued to have problems with constipation and has not been able to make headway with conservative management including physical therapy and bowel regiment changes. At this point patient has been educated on a permanent ileostomy and desires strongly to move in that direction. I have sent her to stoma therapy for preoperative evaluation to have her understand fully living with an ileostomy and she continues to express desire to proceed. She has not taken this decision lightly and has been thinking about it for the better part of the year.. The risks, benefits, and alternatives of the above procedure were discussed and the patient has elected to proceed. Surgeons: Surgeons and Role: * Heath Robledo MD - Primary Findings: At time of surgery patient was found to have extensive adhesions of her small bowel to the anterior abdominal wall and to each other. I spent over 1 hour carefully dissecting out adhesions.Upon entrance into the abdomen, I did get into a loop of small bowel which I assessed to be the distal jejunum. This was stuck to the anterior abdominal wall. I repaired this in a double layer technique with 3-0 Vicryl sutures and tested by pushing on it. Ultimately I was able to dissect out the patient's ilio sigmoid anastomosis and placed a contour stapler below this and created ileostomy through the right rectus muscle at a previously marked stoma site. I did leave a #1 Prolene stitch in the rectal stump. For the case, patient had minimal blood loss. I did not mobilize all of her loops of small bowel as this was not needed and she has not had small bowel obstructive symptoms in the past. Procedure Details: Patient was correctly identified, brought to the operating room, placed in a supine position on the OR table, underwent induction of anesthesia, had an OG tube and Batres catheter for the case, prepped and draped over the abdomen in the usual sterile fashion, an appropriate timeout was performed. The procedure began by excising her previously made midline incision that was carried just above the umbilicus. Dissection was carried down to the level of fascia and ultimately gained entrance into the abdomen. Upon entering the peritoneal cavity, I did make an enterotomy and a loop of small bowel. This was carefully dissected away from the abdominal wall where it was adhesed so that I could seeall edges of it. There were several other loops that was also stuck to this loop of bowel and thesehad to be dissected away as well. I then used 3-0 Vicryl sutures to close the enterotomy in a double layer technique. I then pushed on the anastomosis to assure myself good integrity. There was minimal spillage of succus. At this point I continued with a painstaking scissor dissection to mobilize the small bowel away from adhesions to the anterior abdominal wall and the bladder. After about an hour of dissection, I was able to isolate the ileosigmoid anastomosis. I was able to come beneath thiswith a contour stapler and divide the sigmoid colon at the top of the rectum. I then placed a 2-0 Prolene stitch at the staple line for future identification if needed. Once I had done this, I saw that I had a fairly good length of ileum that would easily come up and make a nice ileostomy in the right lower quadrant. At the previously marked stoma site I took out a patch of skin and dissected down through the right rectus muscle and then delivered the ileum out onto the field. This seemed to fit quite nicely. At this point I irrigated the abdomen with clear return. Patient had minimal blood loss for the case. The fascia was then closed with a #1 PDS in a running fashion. Gerhard's layer was closed with a 3-0 Vicryl suture in an interrupted fashion. The skin was closed in a subcuticular fashion using 3-0 Monocryl sutures. A Prineo dressing placed. I then made sure the stoma by excising the excess ileum and handing it off the field as specimen along with the small amount of colon and previous anastomosis with it. I used 3-0 chromic sutures to create a nice Yodit ileostomy. Once this was created, I performed a digital examination to assure myself easy passage of my finger through the abdominal wall. I then applied appliance. The patient was awakened, extubated, and brought to recovery in good condition. The patient was seen in the preoperative area. The site of surgery was properly noted/marked if necessary per policy. The patient has been actively warmed in preoperative area. Preoperative antibiotics have been ordered and given within 1 hours of incision. Venous thrombosis prophylaxis have been ordered including bilateral sequential compression devices and chemical prophylaxis Anesthesia: General w/Block Estimated Blood Loss: * No values recorded between 05/22/2024 2:18 PM and 05/22/2024 4:17 PM * Total IV Fluids: 1000 mL Drains: Urethral Catheter Non-latex 16 Fr. (Active) Specimens: Specimens (From admission, onward) Start Ordered 05/22/24 160 Tissue Exam RELEASE UPON ORDERING 05/22/24 1605 Complications: None * No complications entered in OR log * Disposition: PACU - hemodynamically stable. Condition: stable Attending Attestation: I was present and scrubbed for the entire procedure. documented in this encounter Miscellaneous Notes * Documentation Clarification - Per Anderson MD - 05/25/2024 5:00 PM EDT CLINICAL DOCUMENTATION CLARIFICATION FORM: Dear Provider: Dr. Anderson Date / Time: 05/27/2024 8:49 AM EDT Please exercise your independent, professional judgment in responding to the clarification form. Clinical indicators are provided on the bottom of this form for your review Please check appropriate box(es): [x] Severe Protein Calorie Malnutrition [] Other Malnutrition (please specify): [] Other: (please enter/write your response) [] Unable to determine For continuity of documentation, please document condition throughout progress notes and discharge summary. Thank You. To be completed by CDI/Coding staff for Provider review: Clinical Indicators - Signs / Symptoms / Labs Results and Location in Medical Record [x] Malnutrition / BMI - 05/23 Office Specialist Consult Note: Patient meets criteria for SEVERE malnutrition. / Body mass index is 29.75 kg/m?? 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 Patient has had persistent diarrhea. - 05/22 Internal Med H&P: Patient did undergo an ileostomy creation as well as extensive adhesion lysis in the OR. [x] Change in nausea / vomiting - 05/22 Internal Med H&P: Postoperatively, patient has had persistent nausea with several episodes of vomiting. Treatments Results and Location in Medical Record [x] Dietary consult - 05/23 Office Specialist consult completed [x] Nutritional supplements - 05/23 Office Specialist Consult Note: Continue CLD as tolerated. PO diet advancement per Surgery. Will order ONS prn CDS/Machine Striper Signature: Radha Pfeiffer Phone #: [phone] Date/Time: 05/27/2024 8:49 AM EDT Moderate Malnutrition (in acute illness) Energy Intake: <75% of estimated energy requirement for > 7 days Weight Loss: 1-2%/1 week; 5%/ 1 month; 7.5%/3 months Other: mild body fat loss; mild muscle mass loss; mild fluid accumulation; Severe Malnutrition (in acute illness) Energy Intake: <= 50% of estimated energy requirement for >= 5 days Weight Loss: >2%/1 week; >5%/1 month; >7.5%/3 months Other: moderate body fat loss; moderate muscle mass loss; moderate- severe fluid accumulation; measurably reduced petrographer strength Moderate Malnutrition (in chronic illness) Energy Intake: <75% of estimated energy requirement for >=1 month Weight Loss: 5%/1 month; 7.5%/3 months; 10%/6 months; 20%/1 year Other: mild body fat loss; mild muscle mass loss; mild fluid accumulation Severe Malnutrition (in chronic illness) Energy Intake: <=75% of estimated energy requirement for >=1 month Weight Loss: >5%/1 month; >7.5%/3 months; >10%/6 months; >20%/1 year Other: severe body fat loss; severe muscle mass loss; severe fluid accumulation; measurably reducedgrip strength This is a permanent part of the Medical Record 2023 [facility] Reviewed: 03/2023 * Plan of Care - Alecia Rios RN - 05/24/2024 10:50 PM EDT Problem: Knowledge Deficit Goal: Patient/family/caregiver demonstrates understanding of disease process, treatment plan, medications, and discharge instructions Description: Complete learning assessment and assess knowledge base. Outcome: Progressing Problem: Potential for Falls Goal: Patient will remain free of falls Description: Assess and monitor vitals signs, neurological status including level of consciousness and orientation. Reassess fall risk per hospital policy.Ensure arm band on, uncluttered walking paths in room, adequate room lighting, call light and overbed table within reach, bed in low position, wheels locked, side rails up per policy, and non-skid footwear provided. Outcome: Progressing * Significant Event - Gracie Montoya RN - 05/24/2024 1:00 AM EDTSummary: PULP OPERATOR 0050 Responded to PULP OPERATOR. Patient is complaining of 10/10 pain in left lower abdomen radiating up intoher chest, also nausea and vomiting. Upon assessment, patient grimaced with soft touch to left side. Abdomen is soft and non distended but very tender. Ostomy on right side has brown liquid stool. She says the pain is intermittent. EKG, chest xray and troponin ordered, KUB ordered. Sound PA notified, simethicone ordered and given. 0600, patient is still complaining of abdominal pain and spasms along with nausea but pain intensity has improved. * Plan of Care - Alecia Rios RN - 05/23/2024 10:44 PM EDT Problem: Knowledge Deficit Goal: Patient/family/caregiver demonstrates understanding of disease process, treatment plan, medications, and discharge instructions Description: Complete learning assessment and assess knowledge base. Outcome: Progressing Problem: Potential for Falls Goal: Patient will remain free of falls Description: Assess and monitor vitals signs, neurological status including level of consciousness and orientation. Reassess fall risk per hospital policy.Ensure arm band on, uncluttered walking paths in room, adequate room lighting, call light and overbed table within reach, bed in low position, wheels locked, side rails up per policy, and non-skid footwear provided. Outcome: Progressing documented in this encounter Plan of Treatment Upcoming Encounters Date Type Department Care Team (Late st Contact Info) Description 07/17/2024 11:00 AM EDT Appointment [facility] [address] [place] [address] 08/28/2024 9:15 AM EDT Office Visit [facility] Urology - [address] [place] [id number] Chandrika Santana, INSPECTOR MISSILE [address] [place] [address] 04/17/2025 8:30 AM EDT Office Visit [facility] Cardiology - [place] [address] [place] [address] Tamara Sow PA-C [address] [facility] [address] [place] [address] documented as of this encounter Procedures Procedure Name Priority Date/Time Associated Diagnosis Comments NOVA GLUCOSE POC Routine 05/25/2024 12:4 2 PM EDT CBC W/ AUTO DIFF Routine 05/25/2024 6:09 AM EDT BASIC METABOLIC PANEL Routine 05/25/2024 6:09 AM EDT NOVA GLUCOSE POC Routine 05/25/2024 6:06 AM EDT HEMOGLOBIN AND HEMATOCRIT Routine 05/25/2024 1:24 AM EDT PHOSPHORUS Routine 05/25/2024 1:24 AM EDT NOVA GLUCOSE POC Routine 05/25/2024 12:0 1 AM EDT FS_MODEL_IP_TRANSFU SE RED BLOOD CELLS Routine 05/24/2024 9:50 PM EDT FS_MODEL_IP_TRANSFU SE RED BLOOD CELLS Routine 05/24/2024 6:[address] ABDOMEN/PELVIS WITHOUT IV CONTRAST STAT 05/24/2024 5:48 PM EDT NOVA GLUCOSE POC Routine 05/24/2024 4:35 PM EDT FS_MODEL_IP_PREPARE RBC Routine 05/24/2024 3:21 PM EDT CBC HEMOGRAM (SJ-BKR) Routine 05/24/2024 1:18 PM EDT BASIC METABOLIC PANEL Routine 05/24/2024 1:18 PM EDT NOVA GLUCOSE POC Routine 05/24/2024 10:1 8 AM EDT NOVA GLUCOSE POC Routine 05/24/2024 5:53 AM EDT XR CHEST AP PORTABLE Routine 05/24/2024 1:21 AM EDT XR ABDOMEN/KUB 1 VIEW PORTABLE STAT 05/24/2024 1:18 AM EDT FS_MODEL_IP_ECG 12-LEAD STAT 05/24/2024 12:58 AM EDT CBC HEMOGRAM (SJ-BKR) Routine 05/24/2024 12:54 AM EDT HIGH SENSITIVITY TROPONIN I Routine 05/24/2024 12:54 AM EDT BASIC METABOLIC PANEL Routine 05/24/2024 12:54 AM EDT NOVA GLUCOSE POC Routine 05/23/2024 7:44 PM EDT NOVA GLUCOSE POC Routine 05/23/2024 3:49 PM EDT NOVA GLUCOSE POC Routine 05/23/2024 10:5 9 AM EDT CBC HEMOGRAM (SJ-BKR) Routine 05/23/2024 8:32 AM EDT CALCIUM, IONIZED Routine 05/23/2024 8:31 AM EDT MAGNESIUM Routine 05/23/2024 8:31 AM EDT BASIC METABOLIC PANEL Routine 05/23/2024 8:31 AM EDT NOVA GLUCOSE POC Routine 05/23/2024 5:18 AM EDT NOVA GLUCOSE POC Routine 05/23/2024 12:4 0 AM EDT TISSUE EXAM [facility] AP Routine 05/22/2024 4:05 PM EDT Abnormal defecation OH EXPLORATORY LAPAROTOMY CELIOTOMY W/WO BIOPSY SPX 05/22/2024 2:18 PM EDT Abnormal defecation Case Notes IN 1130, 2HRS(A), PA REQUESTED, PASS TYPE AND SCREEN ([place] BKR) STAT 05/22/2024 11:43 AM EDT EKG-SCANNED 05/22/2024 documented in this encounter Results * Glucose, Nova Meter (05/25/2024 12:42 PM EDT) [facility] POC-GLUCOSE 83 70 - 110 mg/dL 05/25/2024 12:43 PM EDT [facility] Comment: In the event of poor peripheral blood flow, venous or arterial blood should be used due to the potential of erroneous results. Protocols Followed Notified Nurse RBV Hand Brush Filler [id number] 05/25/2024 12:43 PM EDT [facility] Blood WHOLE BLOOD / Unknown 05/25/2024 12:42 PM EDT 05/25/2024 12:43 PM EDT Narrative [facility] - 05/25/2024 12:43 PM EDT Hand Brush Filler ID is - [id number] us Per Anderson MD POINT OF CARE TEST ORDERABLES Fi nal Result [facility] [address] [phone] * (ABNORMAL) Basic Metabolic Panel (05/25/2024 6:09 AM EDT) Sodium 126(L) 136 - 145 meq/L 05/25/2024 7:04 AM EDT [facility] Potassium 4.3 3.4 - 5.1 meq/L 05/25/2024 7:04 AM EDT [facility] CO2 21(L) 22 - 29 meq/L 05/25/2024 7:04 AM EDT [facility] Chloride 97(L) 98 - 112 meq/L 05/25/2024 7:04 AM EDT [facility] Glucose 90 74 - 100 mg/dL 05/25/2024 7:04 AM EDT [facility] BUN 6.6(L) 7.0 - 18.7 mg/dL 05/25/2024 7:04 AM EDT [facility] Creatinine 0.79 0.57 - 1.11 mg/dL 05/25/2024 7:04 AM EDT [facility] BUN/Creatinine 8 8 - 20 05/25/2024 7:04 AM EDT [facility] Calcium 8.3(L) 8.4 - 10.2 mg/dL 05/25/2024 7:04 AM EDT [facility] Anion Gap 12 4 - 12 05/25/2024 7:04 AM EDT [facility] eGFR (mL/min/1.73m2) 94 >=60 mL/min/1.7 3m2 05/25/2024 7:04 AM EDT [facility] Osmolality Calc 250.7 mOsm/kg 7:04 AM EDT [facility] Blood Venipuncture / Unknown 05/25/2024 6:09 AM EDT 05/25/2024 6:37 AM EDT us Ac Wilks MD LAB BLOOD ORDERABLES Final R esult [facility] [address] [id number] [phone] * (ABNORMAL) CBC with automated diff (05/25/2024 6:09 AM EDT) WBC 6.7 4.0 - 10.0 K/ L 05/25/2024 6:40 AM EDT [facility] RBC 3.57(L) 3.93 - 5.22 M/ L 05/25/2024 6:40 AM EDT [facility] Hemoglobin 10.3(L) 11.2 - 15.7 GM/DL 05/25/2024 6:40 AM EDT [facility] Hematocrit 30.2(L) 34.1 - 44.9 % 05/25/2024 6:40 AM EDT [facility] MCV 85 79 - 95 fL 05/25/2024 6:40 AM EDT [facility] MCH 28.9 25.6 - 32.2 pg 05/25/2024 6:40 AM EDT [facility] MCHC 34.1 32.2 - 35.5 GM/DL 05/25/2024 6:40 AM EDT [facility] RDW 14.0 11.7 - 14.4 % 05/25/2024 6:40 AM EDT [facility] Platelets 212 140 - 375 K/CU MM 05/25/2024 6:40 AM EDT [facility] MPV 9.3(L) 9.4 - 12.3 fL 05/25/2024 6:40 AM EDT [facility] % Neutros 60 34 - 71 % 05/25/2024 6:40 AM EDT [facility] % Lymphs 26 19 - 52 % 05/25/2024 6:40 AM EDT [facility] % Monos 7 5 - 13 % 05/25/2024 6:40 AM EDT [facility] % Eos 6 1 - 6 % 05/25/2024 6:40 AM EDT [facility] % Baso 1 0 - 1 % 05/25/2024 6:40 AM EDT [facility] NRBC Absolute <0.01 0 - 0.012 K/ul 05/25/2024 6:40 AM EDT [facility] # Neutros 4.03 1.56 - 6.13 K/ L 05/25/2024 6:40 AM EDT [facility] # Lymphs 1.72 1.18 - 3.74 K/ L 05/25/2024 6:40 AM EDT [facility] # Monos 0.45 0.24 - 0.86 K/ L 05/25/2024 6:40 AM EDT [facility] # Eos 0.43(H) 0.04 - 0.36 K/ L 05/25/2024 6:40 AM EDT [facility] # Baso 0.04 0.01 - 0.08 K/ L 05/25/2024 6:40 AM EDT [facility] Immature Granulocytes-Re lative 0.30 0.01 - 0.43 % 05/25/2024 6:40 AM EDT [facility] # IG <0.03 0.00 - 0.03 K/uL 05/25/2024 6:40 AM EDT [facility] Blood Venipuncture / Unknown 05/25/2024 6:09 AM EDT 05/25/2024 6:37 AM EDT Narrative [facility] - 05/25/2024 6:40 AM EDT When CBC w/ Auto Diff is ordered the lab will add a Manual Differential as a quality check at no additional charge if: Lymphocytes greater than seventy five percent with normal or increased WBC Monocytes greater than Fifteen percent Basophil greater than four percent Bands >10% or several immature myeloids are seen on scan Blast? Flag noted Atypical Lymph flag noted us Ac Wilks MD LAB BLOOD ORDERABLES Final R esult [facility] [address] [phone] * Glucose, Nova Meter (05/25/2024 6:06 AM EDT) [facility] POC-GLUCOSE 102 70 - 110 mg/dL 05/25/2024 6:07 AM EDT [facility] Comment: In the event of poor peripheral blood flow, venous or arterial blood should be used due to the potential of erroneous results. Notified Nurse RBV Hand Brush Filler [phone] 05/25/2024 6:07 AM EDT [facility] Blood WHOLE BLOOD / Unknown 05/25/2024 6:06 AM EDT 05/25/2024 6:06 AM EDT Narrative [facility] - 05/25/2024 6:07 AM EDT Hand Brush Filler ID is - [phone] us Ac Wilks MD POINT OF CARE TEST ORDERABLE S Final Result [facility] [address] [place] [address] * Phosphorus (05/25/2024 1:24 AM EDT) [facility] Phosphorus 3.6 2.5 - 4.5 mg/dL 05/25/2024 1:55 AM EDT [facility] Blood Venipuncture / Unknown 05/25/2024 1:24 AM EDT 05/25/2024 1:33 AM EDT Ac Wilks MD LAB BLOOD ORDERABLES Final R esult [facility] [address] [phone] * (ABNORMAL) Hemoglobin and hematocrit (05/25/2024 1:24 AM EDT) [facility] Hemoglobin 9.7(L) 11.2 - 15.7 GM/DL 05/25/2024 1:39 AM EDT [facility] Hematocrit 28.6(L) 34.1 - 44.9 % 05/25/2024 1:39 AM EDT [facility] Blood Venipuncture / Unknown 05/25/2024 1:24 AM EDT 05/25/2024 1:33 AM EDT us Aristides Pickering PA-C LAB BLOOD ORDERABLES Final Result Performing Organization Address [facility]/ZIP Co de Phone Number [facility] [address] [phone] * Transfuse RBC (05/25/2024 12:08 AM EDT) us Ac Wilks MD FS_MODEL_IP_BLOOD TRANSFUSIO N ORDERABLES Final Result * Transfuse RBC: 2 Units (05/25/2024 12:08 AM EDT) us Ac MARS_MODEL_IP_BLOOD TRANSFUSIO N ORDERABLES Edited Result - Final * Glucose, Nova Meter (05/25/2024 12:01 AM EDT) [facility] POC-GLUCOSE 101 70 - 110 mg/dL 05/25/2024 12:02 AM EDT [facility] Comment: In the event of poor peripheral blood flow, venous or arterial blood should be used due to the potential of erroneous results. Notified Nurse RBV Hand Brush Filler [phone] 05/25/2024 12:02 AM EDT [facility] Blood WHOLE BLOOD / Unknown 05/25/2024 12:01 AM EDT 05/25/2024 12:02 AM EDT Narrative [facility] - 05/25/2024 12:02 AM EDT Hand Brush Filler ID is - [phone] us Ac Wilks MD POINT OF CARE TEST ORDERABLE S Final Result Performing Organization Address [facility]/ZIP Co de Phone Number [facility] [address] [phone] * Transfuse RBC (05/24/2024 9:36 PM EDT) us Ac Wilks MD FS_MODEL_IP_BLOOD TRANSFUSIO N ORDERABLES Final Result * CT ABDOMEN/PELVIS WITHOUT IV CONTRAST Standard Protocol (05/24/2024 5:48 PM EDT) Anatomical Region Laterality Modality Abdomen, Pelvis Computed Tomogra phy (CT) 05/24/2024 6:01 PM EDT Impressions 05/24/2024 6:06 PM EDT Expected postoperative findings. Small amount of hemoperitoneum in the pelvis. Images reviewed, interpreted and dictated by Dr. John Edouard MD Narrative 05/24/2024 6:[address] OF THE ABDOMEN AND PELVIS WITHOUT CONTRAST HISTORY: Recent colon surgery with postoperative hypotension and anemia. PROCEDURE: Routine axial images were obtained from the lung bases to the pubic symphysis. No contrast was given. This study was performed with techniques to keep radiation doses as low as reasonably achievable, (ALARA). Individualized dose reduction techniques using automated exposure control or adjustment of mA and/or kV according to the patient size were employed. COMPARISON: 03/21/2023 FINDINGS: Abdomen: There is pneumoperitoneum, consistent with recent abdominal surgery. The gallbladder has been removed. Solid abdominal organs and ureters remain within normal limits. 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 A small amount of dependent high density within the peritoneum on images 65 through 71 is consistent with hemoperitoneum although this does not seem sufficient to cause significant anemia or hypotension. There is no free fluid elsewhere in the abdomen or pelvis. Pelvis: Air in the urinary bladder is secondary to recent catheterization. The uterus and ovaries are not visualized. There is no pelvic or abdominal ascites, adenopathy, or acute osseous abnormality. Procedure Note John Edouard MD - 05/24/2024 CT OF THE ABDOMEN AND PELVIS WITHOUT CONTRAST HISTORY: Recent colon surgery with postoperative hypotension and anemia. PROCEDURE: Routine axial images were obtained from the lung bases to the pubic symphysis. No contrast was given. This study was performed with techniques to keep radiation doses as low as reasonably achievable, (ALARA). Individualized dose reduction techniques using automated exposure control or adjustment of mA and/or kV according to the patient size were employed. COMPARISON: 03/21/2023 FINDINGS: Abdomen: There is pneumoperitoneum, consistent with recent abdominal surgery. The gallbladder has been removed. Solid abdominal organs and ureters remain within normal limits. 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 A small amount of dependent high density within the peritoneum on images 65 through 71 is consistent with hemoperitoneum although this does not seem sufficient to cause significant anemia or hypotension. There is no free fluid elsewhere in the abdomen or pelvis. Pelvis: Air in the urinary bladder is secondary to recent catheterization. The uterus and ovaries are not visualized. There is no pelvic or abdominal ascites, adenopathy, or acute osseous abnormality. IMPRESSION: Expected postoperative findings. Small amount of hemoperitoneum in the pelvis. Images reviewed, interpreted and dictated by Dr. John Edouard MD Ac Wilks MD IMG CT ORDERABLES Final Resu lt * Glucose, Nova Meter (05/24/2024 4:35 PM EDT) Pathologist [facility] POC-GLUCOSE 98 70 - 110 mg/dL 05/24/2024 4:37 PM EDT [facility] Comment: In the event of poor peripheral blood flow, venous or arterial blood should be used due to the potential of erroneous results. Notified Nurse RBV Hand Brush Filler [phone] 05/24/2024 4:37 PM EDT [facility] Blood WHOLE BLOOD / Unknown 05/24/2024 4:35 PM EDT 05/24/2024 4:37 PM EDT Narrative [facility] - 05/24/2024 4:37 PM EDT Hand Brush Filler ID is - [id number] Ac Wilks MD POINT OF CARE TEST ORDERABLE S Final Result [facility] [address] [phone] * Prepare RBC: 2 Units (05/24/2024 3:21 PM EDT) Pathologist [facility] Issue Date/Time [id number] [facility] [place] Product Identification Red Blood Cells [facility] [place]) Product Code [id number] [facility] [place] Status Information Transfused [facility] [place] Unit Number [id number] [facility] [place]) Blood Type 5100 [facility] [place] Cross Match Results Compatible [facility] [place] us Ac Wilks MD FS_MODEL_IP_BLOOD BANK PRODU CT ORDERABLES Final Result [facility] [place] 1 [facility] [place] [id number], [facility] [phone] * (ABNORMAL) Basic Metabolic Panel (05/24/2024 1:18 PM EDT) Sodium 125(L) 136 - 145 meq/L 05/24/2024 1:52 PM EDT [facility] Potassium 4.5 3.4 - 5.1 meq/L 05/24/2024 1:52 PM EDT [facility] CO2 23 22 - 29 meq/L 05/24/2024 1:52 PM EDT [facility] Chloride 97(L) 98 - 112 meq/L 05/24/2024 1:52 PM EDT [facility] Glucose 92 74 - 100 mg/dL 05/24/2024 1:52 PM EDT [facility] BUN 4.6(L) 7.0 - 18.7 mg/dL 05/24/2024 1:52 PM EDT [facility] Creatinine 0.72 0.57 - 1.11 mg/dL 05/24/2024 1:52 PM EDT [facility] BUN/Creatinine 6(L) 8 - 20 05/24/2024 1:52 PM EDT [facility] Calcium 8.1(L) 8.4 - 10.2 mg/dL 05/24/2024 1:52 PM EDT [facility] Anion Gap 10 4 - 12 05/24/2024 1:52 PM EDT [facility] eGFR (mL/min/1.73m2) 105 >=60 mL/min/1.7 3m2 05/24/2024 1:52 PM EDT [facility] Osmolality Calc 248.3 mOsm/kg 1:52 PM EDT [facility] Blood Venipuncture / Unknown 05/24/2024 1:18 PM EDT 05/24/2024 1:24 PM EDT us Ac Wilks MD LAB BLOOD ORDERABLES Final R esult [facility] [address] [phone] * (ABNORMAL) CBC - Hemogram (05/24/2024 1:18 PM EDT) WBC 8.7 4.0 - 10.0 K/ L 05/24/2024 1:28 PM EDT [facility] RBC 2.98(L) 3.93 - 5.22 M/ L 05/24/2024 1:28 PM EDT [facility] Hemoglobin 8.8(L) 11.2 - 15.7 GM/DL 05/24/2024 1:28 PM EDT [facility] Hematocrit 25.6(L) 34.1 - 44.9 % 05/24/2024 1:28 PM EDT [facility] MCV 86 79 - 95 fL 05/24/2024 1:28 PM EDT [facility] MCH 29.5 25.6 - 32.2 pg 05/24/2024 1:28 PM EDT [facility] MCHC 34.4 32.2 - 35.5 GM/DL 05/24/2024 1:28 PM EDT [facility] RDW 12.0 11.7 - 14.4 % 05/24/2024 1:28 PM EDT [facility] Platelets 240 140 - 375 K/CU MM 05/24/2024 1:28 PM EDT [facility] MPV 9.1(L) 9.4 - 12.3 fL 05/24/2024 1:28 PM EDT [facility] Blood Venipuncture / Unknown 05/24/2024 1:18 PM EDT 05/24/2024 1:24 PM EDT Ac Wilks MD LAB BLOOD ORDERABLES Final R esult Performing Organization Address [facility] Co de Phone Number [facility] [address] [phone] * (ABNORMAL) Glucose, Nova Meter (05/24/2024 10:18 AM EDT) POC-GLUCOSE 127(H) 70 - 110 mg/dL 05/24/2024 10:20 AM EDT [facility] Comment: In the event of poor peripheral blood flow, venous or arterial blood should be used due to the potential of erroneous results. Notified Nurse RBV Hand Brush Filler [phone] 05/24/2024 10:20 AM EDT [facility] Blood WHOLE BLOOD / Unknown 05/24/2024 10:18 AM EDT 05/24/2024 10:20 AM EDT Narrative [facility] - 05/24/2024 10:20 AM EDT Hand Brush Filler ID is - [id number] us Ac Wilks MD POINT OF CARE TEST ORDERABLE S Final Result Performing Organization Address [facility] Co de Phone Number [facility] [address] [phone] * (ABNORMAL) Glucose, Nova Meter (05/24/2024 5:53 AM EDT) POC-GLUCOSE 151(H) 70 - 110 mg/dL 05/24/2024 5:54 AM EDT [facility] Comment: In the event of poor peripheral blood flow, venous or arterial blood should be used due to the potential of erroneous results. Notified Nurse RBV Hand Brush Filler [phone] 05/24/2024 5:54 AM EDT [facility] Blood WHOLE BLOOD / Unknown 05/24/2024 5:53 AM EDT 05/24/2024 5:54 AM EDT Narrative [facility] - 05/24/2024 5:54 AM EDT Hand Brush Filler ID is - [id number] Carey Monroy PA-C POINT OF CARE TEST ORDERABLES Final Result [facility] 1 [place] [id number] [phone] * XR chest AP portable (05/24/2024 1:21 AM EDT) Anatomical Region Laterality Modality Chest X-Ray 05/24/2024 7:30 AM EDT Impressions 05/24/2024 7:53 AM EDT Hypoaeration and pulmonary vascular congestion. SINGLE VIEW ABDOMEN HISTORY: Abdominal pain. FINDINGS: ABDOMEN: Single view of the abdomen demonstrates a nonspecific bowel gas pattern. No abnormal calcifications.Cholecystectomy clips are present. IMPRESSION: Nonspecific bowel gas pattern. Images reviewed, interpreted, and dictated by Dr. Janusz Murray. Transcribed by Jarrod Ruiz PA-C. Narrative 05/24/2024 7:53 AM EDT PORTABLE CHEST HISTORY: Shortness of breath. COMPARISON: 05/15/2024. FINDINGS: The heart is borderline in size. The mediastinum is unremarkable . The lungs are hypoaerated with perihilar vascular crowding . There is no pneumothorax . The osseous structures are unremarkable . Procedure Note Janusz Murray MD - 05/24/2024 PORTABLE CHEST HISTORY: Shortness of breath. COMPARISON: 05/15/2024. FINDINGS: The heart is borderline in size. The mediastinum is unremarkable . The lungs are hypoaerated with perihilar vascular crowding . There is no pneumothorax . The osseous structures are unremarkable . IMPRESSION: Hypoaeration and pulmonary vascular congestion. SINGLE VIEW ABDOMEN HISTORY: Abdominal pain. FINDINGS: ABDOMEN: Single view of the abdomen demonstrates a nonspecific bowel gas pattern. No abnormal calcifications.Cholecystectomy clips are present. IMPRESSION: Nonspecific bowel gas pattern. Images reviewed, interpreted, and dictated by Dr. Janusz Murray. Transcribed by Jarrod Ruiz PA-C. Aristides Pickering PA-C IMG DIAGNOSTIC IMAGING ORD ERABLES Final Result * XR KUB PORTABLE (05/24/2024 1:18 AM EDT) Anatomical Region Laterality Modality Abdomen X-Ray 05/24/2024 7:30 AM EDT Impressions 05/24/2024 7:53 AM EDT Hypoaeration and pulmonary vascular congestion. SINGLE VIEW ABDOMEN HISTORY: Abdominal pain. FINDINGS: ABDOMEN: Single view of the abdomen demonstrates a nonspecific bowel gas pattern. No abnormal calcifications.Cholecystectomy clips are present. IMPRESSION: Nonspecific bowel gas pattern. Images reviewed, interpreted, and dictated by Dr. aJnusz Murray. Transcribed by Jarrod Ruiz PA-C. Narrative 05/24/2024 7:53 AM EDT PORTABLE CHEST HISTORY: Shortness of breath. COMPARISON: 05/15/2024. FINDINGS: The heart is borderline in size. The mediastinum is unremarkable . The lungs are hypoaerated with perihilar vascular crowding . There is no pneumothorax . The osseous structures are unremarkable . Procedure Note Janusz Murray MD - 05/24/2024 PORTABLE CHEST HISTORY: Shortness of breath. COMPARISON: 05/15/2024. FINDINGS: The heart is borderline in size. The mediastinum is unremarkable . The lungs are hypoaerated with perihilar vascular crowding . There is no pneumothorax . The osseous structures are unremarkable . IMPRESSION: Hypoaeration and pulmonary vascular congestion. SINGLE VIEW ABDOMEN HISTORY: Abdominal pain. FINDINGS: ABDOMEN: Single view of the abdomen demonstrates a nonspecific bowel gas pattern. No abnormal calcifications.Cholecystectomy clips are present. IMPRESSION: Nonspecific bowel gas pattern. Images reviewed, interpreted, and dictated by Dr. Janusz Murray. Transcribed by Jarrod Ruiz PA-C. Aristides Pickering PA-C IM DIAGNOSTIC IMAGING ORD ERABLES Final Result * ECG 12 lead (05/24/2024 12:58 AM EDT) VENTRICULAR RATE EKG/MIN 63 BPM GE MUSE ATRIAL RATE (MCT) 63 BPM GE MUSE OH Interval 186 ms GE MUSE QRS-INTERVAL (MSEC) 92 ms GE MUSE QT Interval 444 ms GE MUSE QTC Interval 454 ms GE MUSE P [place] 15 degrees GE MUSE R AXIS (MCT) 45 degrees GE MUSE T Wave [place] 35 degrees GE MUSE [place] Diagnosis Normal sinus rhythm Low voltage QRS Borderline ECG Confirmed by Liang Luna ([id number]) on 05/24/2024 1:34:15 PM GE MUSE 05/24/2024 12:5 8 AM EDT 05/24/2024 1:34 PM EDT Aristides Pickering PA-C ECG ORDERABLES Final Resu lt Performing Organization Address [facility] Co de Phone Number GE MUSE * High Sensitivity Troponin I (05/24/2024 12:54 AM EDT) Pathologist [facility] Troponin I High Sensitivity (pg/mL) <5.0 <=14 pg/mL 05/24/2024 2:15 AM EDT [facility] Blood Venipuncture / Unknown 05/24/2024 12:54 AM EDT 05/24/2024 1:44 AM EDT Narrative [facility] - 05/24/2024 2:15 AM EDT Applicable to [facility] only. Effective April 30 the lab will begin using a new chemistry analyzer. HsTroponin methodology, reference ranges and critical values have changed. Aristides Pickering PA-C LAB BLOOD ORDERABLES Final Result Performing Organization Address [facility] de Phone Number [facility] [address] [phone] * (ABNORMAL) CBC - Hemogram (SJ-BKR) (05/24/2024 12:54 AM EDT) [facility] WBC 11.1(H) 4.0 - 10.0 K/ L 05/24/2024 1:05 AM EDT [facility] RBC 3.49(L) 3.93 - 5.22 M/ L 05/24/2024 1:05 AM EDT [facility] Hemoglobin 10.4(L) 11.2 - 15.7 GM/DL 05/24/2024 1:05 AM EDT [facility] Hematocrit 30.1(L) 34.1 - 44.9 % 05/24/2024 1:05 AM EDT [facility] MCV 86 79 - 95 fL 05/24/2024 1:05 AM EDT [facility] MCH 29.8 25.6 - 32.2 pg 05/24/2024 1:05 AM EDT [facility] MCHC 34.6 32.2 - 35.5 GM/DL 05/24/2024 1:05 AM EDT [facility] RDW 12.3 11.7 - 14.4 % 05/24/2024 1:05 AM EDT [facility] Platelets 267 140 - 375 K/CU MM 05/24/2024 1:05 AM EDT [facility] MPV 9.2(L) 9.4 - 12.3 fL 05/24/2024 1:05 AM EDT [facility] Blood Venipuncture / Unknown 05/24/2024 12:54 AM EDT 05/24/2024 1:04 AM EDT us Heath Robledo MD LAB BLOOD ORDERABLES Final Resul t Performing Organization Address City/State/[facility] Co de Phone Number [facility] [address] [place] [address] * (ABNORMAL) Basic Metabolic Panel (05/24/2024 12:54 AM EDT) Sodium 126(L) 136 - 145 meq/L 05/24/2024 1:40 AM EDT [facility] Potassium 4.0 3.4 - 5.1 meq/L 05/24/2024 1:40 AM EDT [facility] CO2 22 22 - 29 meq/L 05/24/2024 1:40 AM EDT [facility] Chloride 95(L) 98 - 112 meq/L 05/24/2024 1:40 AM EDT [facility] Glucose 136(H) 74 - 100 mg/dL 05/24/2024 1:40 AM EDT [facility] BUN 6.4(L) 7.0 - 18.7 mg/dL 05/24/2024 1:40 AM EDT [facility] Creatinine 0.80 0.57 - 1.11 mg/dL 05/24/2024 1:40 AM EDT [facility] BUN/Creatinine 8 8 - 20 05/24/2024 1:40 AM EDT [facility] Calcium 8.3(L) 8.4 - 10.2 mg/dL 05/24/2024 1:40 AM EDT [facility] Anion Gap 13(H) 4 - 12 05/24/2024 1:40 AM EDT [facility] eGFR (mL/min/1.73m2) 93 >=60 mL/min/1.7 3m2 05/24/2024 1:40 AM EDT [facility] Osmolality Calc 253.2 mOsm/kg 1:40 AM EDT [facility] Blood Venipuncture / Unknown 05/24/2024 12:54 AM EDT 05/24/2024 1:04 AM EDT us Heath Robledo MD LAB BLOOD ORDERABLES Final Resul t Performing Organization Address [facility] Co de Phone Number [facility] [address] [phone] * (ABNORMAL) Glucose, Nova Meter (05/23/2024 7:44 PM EDT) [facility] Signature POC-GLUCOSE 113(H) 70 - 110 mg/dL 05/23/2024 7:44 PM EDT [facility] Comment: In the event of poor peripheral blood flow, venous or arterial blood should be used due to the potential of erroneous results. Notified Nurse RBV Hand Brush Filler [phone] 05/23/2024 7:44 PM EDT [facility] Blood WHOLE BLOOD / Unknown 05/23/2024 7:44 PM EDT 05/23/2024 7:44 PM EDT Narrative [facility] - 05/23/2024 7:44 PM EDT Hand Brush Filler ID is - [id number] us Carey Monroy PA-C POINT OF CARE TEST ORDERABLES Final Result Performing Organization Address [facility]/ZIP Co de Phone Number [facility] [address] [phone] * (ABNORMAL) Glucose, Nova Meter (05/23/2024 3:49 PM EDT) POC-GLUCOSE 127(H) 70 - 110 mg/dL 05/23/2024 3:55 PM EDT [facility] Comment: In the event of poor peripheral blood flow, venous or arterial blood should be used due to the potential of erroneous results. Notified Nurse RBV Hand Brush Filler [phone] 05/23/2024 3:55 PM EDT [facility] Blood WHOLE BLOOD / Unknown 05/23/2024 3:49 PM EDT 05/23/2024 3:55 PM EDT [facility] - 05/23/2024 3:55 PM EDT Hand Brush Filler ID is - [phone] Carey Monroy PA-C POINT OF CARE TEST ORDERABLES Final Result Performing Organization Address [facility] Co de Phone Number [facility] [address] [phone] * Glucose, Nova Meter (05/23/2024 10:59 AM EDT) POC-GLUCOSE 100 70 - 110 mg/dL 05/23/2024 11:03 AM EDT [facility] Comment: In the event of poor peripheral blood flow, venous or arterial blood should be used due to the potential of erroneous results. Notified Nurse RBV Hand Brush Filler [phone] 05/23/2024 11:03 AM EDT [facility] Blood WHOLE BLOOD / Unknown 05/23/2024 10:59 AM EDT 05/23/2024 11:03 AM EDT Narrative [facility] - 05/23/2024 11:03 AM EDT Hand Brush Filler ID is - [phone] Carey STYLESC POINT OF CARE TEST ORDERABLES Final Result Performing Organization Address City/[facility]/ZIP Co de Phone Number [facility] [address] [phone] * (ABNORMAL) CBC (Hemogram only) (05/23/2024 8:32 AM EDT) WBC 12.7(H) 4.0 - 10.0 K/ L 05/23/2024 9:19 AM EDT [facility] RBC 3.76(L) 3.93 - 5.22 M/ L 05/23/2024 9:19 AM EDT [facility] Hemoglobin 11.0(L) 11.2 - 15.7 GM/DL 05/23/2024 9:19 AM EDT [facility] Hematocrit 32.2(L) 34.1 - 44.9 % 05/23/2024 9:19 AM EDT [facility] MCV 86 79 - 95 fL 05/23/2024 9:19 AM EDT [facility] MCH 29.3 25.6 - 32.2 pg 05/23/2024 9:19 AM EDT [facility] MCHC 34.2 32.2 - 35.5 GM/DL 05/23/2024 9:19 AM EDT [facility] RDW 12.0 11.7 - 14.4 % 05/23/2024 9:19 AM EDT [facility] Platelets 298 140 - 375 K/CU MM 05/23/2024 9:19 AM EDT [facility] MPV 9.2(L) 9.4 - 12.3 fL 05/23/2024 9:19 AM EDT [facility] Blood Venipuncture / Unknown 05/23/2024 8:32 AM EDT 05/23/2024 9:01 AM EDT us Heath Robledo MD LAB BLOOD ORDERABLES Final Resul t [facility] [address] [phone] * Magnesium (05/23/2024 8:31 AM EDT) Magnesium 2.2 1.6 - 2.6 mg/dL 05/23/2024 9:32 AM EDT [facility] Blood Venipuncture / Unknown 05/23/2024 8:31 AM EDT 05/23/2024 9:04 AM EDT Aristides Pickering PA-C LAB BLOOD ORDERABLES Final Result Performing Organization Address City/[facility]/ZIP Co de Phone Number [facility] LABORATORY [address] [phone] * CALCIUM Ionized (05/23/2024 8:31 AM EDT) Calcium Ionized 1.17 1.12 - 1.32 mmol/L 05/23/2024 9:12 AM EDT [facility] Blood Venipuncture / Unknown 05/23/2024 8:31 AM EDT 05/23/2024 9:06 AM EDT Aristides Pickering PA-C LAB BLOOD ORDERABLES Final Result Performing Organization Address [facility] Co de Phone Number [facility] [address] [phone] * (ABNORMAL) Basic Metabolic Panel (05/23/2024 8:31 AM EDT) Sodium 129(L) 136 - 145 meq/L 05/23/2024 9:32 AM EDT [facility] Potassium 4.5 3.4 - 5.1 meq/L 05/23/2024 9:32 AM EDT [facility] CO2 23 22 - 29 meq/L 05/23/2024 9:32 AM EDT [facility] Chloride 100 98 - 112 meq/L 05/23/2024 9:32 AM EDT [facility] Glucose 110(H) 74 - 100 mg/dL 05/23/2024 9:32 AM EDT [facility] BUN 4.4(L) 7.0 - 18.7 mg/dL 05/23/2024 9:32 AM EDT [facility] Creatinine 0.72 0.57 - 1.11 mg/dL 05/23/2024 9:32 AM EDT [facility] BUN/Creatinine 6(L) 8 - 20 05/23/2024 9:32 AM EDT [facility] Calcium 8.2(L) 8.4 - 10.2 mg/dL 05/23/2024 9:32 AM EDT [facility] Anion Gap 11 4 - 12 05/23/2024 9:32 AM EDT [facility] eGFR (mL/min/1.73m2) 105 >=60 mL/min/1.7 3m2 05/23/2024 9:32 AM EDT [facility] Osmolality Calc 256.6 mOsm/kg 9:32 AM EDT [facility] Blood Venipuncture / Unknown 05/23/2024 8:31 AM EDT 05/23/2024 9:04 AM EDT Heath Robledo MD LAB BLOOD ORDERABLES Final Resul t Performing Organization Address [facility] Co de Phone Number [facility] [address] [place] [address] * (ABNORMAL) Glucose, Nova Meter (05/23/2024 5:18 AM EDT) [facility] Signature POC-GLUCOSE 146(H) 70 - 110 mg/dL 05/23/2024 5:19 AM EDT [facility] Comment: In the event of poor peripheral blood flow, venous or arterial blood should be used due to the potential of erroneous results. Notified Nurse RBV Hand Brush Filler [id number] 05/23/2024 5:19 AM EDT [facility] Blood WHOLE BLOOD / Unknown 05/23/2024 5:18 AM EDT 05/23/2024 5:19 AM EDT Narrative [facility] - 05/23/2024 5:19 AM EDT Hand Brush Filler ID is - [id number] us Aristides Pickering PA-C POINT OF CARE TEST ORDERAB LES Final Result Performing Organization Address [facility] Co de Phone Number [facility] [address] [phone] * (ABNORMAL) Glucose, Nova Meter (05/23/2024 12:40 AM EDT) POC-GLUCOSE 176(H) 70 - 110 mg/dL 05/23/2024 12:44 AM EDT [facility] Comment: In the event of poor peripheral blood flow, venous or arterial blood should be used due to the potential of erroneous results. Protocols Followed Hand Brush Filler [id number] 05/23/2024 12:44 AM EDT [facility] Blood WHOLE BLOOD / Unknown 05/23/2024 12:40 AM EDT 05/23/2024 12:44 AM EDT Narrative [facility] - 05/23/2024 12:44 AM EDT Hand Brush Filler ID is - [id number] Aristides Pickering PA-C POINT OF CARE TEST ORDERAB LES Final Result [facility] [address] [phone] * Tissue Exam (05/22/2024 4:05 PM EDT) AP RESULT See Note: [facility] Comment: [facility] [address] [place] [address] or [phone] Jose Morgan M.D., [employer] PATIENT NAME LABORATORY NO. DEMETRA AGUIRRE [id number] AGE SEX SSN CLIENT REF # [facility] 44 1980 F [id number] [address] [place] REQUESTING William ATTENDING [employer] [address] HEATH ROBLEDO DATE COLLECTED DATE RECEIVED DATE REPORTED 05/22/2024 05/23/2024 05/24/2024 DIAGNOSIS: COLON, COLOSTOMY STOMA: Benign enteric mucosa with reactive changes Negative for dysplasia or carcinoma CLINICAL HISTORY: Other specified symptoms and signs involving the digestive system and abdomen SPECIMENS RECEIVED: COLON, COLOSTOMY STOMA MICROSCOPIC DESCRIPTION: Tissue blocks are prepared and slides are examined microscopically on all specimens. See diagnosis for details. Professional interpretation rendered by Yaya Patrick M.D.,[facility] at [employer], [facility], [address] [place] [address]. GROSS DESCRIPTION: Specimen received in formalin labeled small bowel and colon and consists of an irregular portion of bowel attached fat measuring 6.3 x 4.0 x 3.3 cm. There is a 2.8 x 2.7 cm open area of bowel with possible attached skin. Sectioning reveals numerous embedded roney. The mucosal surface appears grossly unremarkable. No polyps, diverticula, areas of ulceration, or other discrete mass lesions are grossly identified. [employer] sections are submitted in 2 cassettes with sections including possible skin in A1. JTM/RLL REVIEWED, DIAGNOSED AND ELECTRONICALLY SIGNED BY: Yaya Patrick M.D.,Tania. CPT CODES: 51031 Tissue COLON STRUCTURE / Unknown 05/22/2024 4:05 PM EDT Heath Robledo MD PATHOLOGY/CYTOLOGY ORDERABLES Fi nal Result [facility]Y [facility] [address] [place] [address] * Type and Screen (05/22/2024 11:43 AM EDT) ABO/Rh O Positive 05/22/2024 11:29 AM EDT [facility] ([place]) Antibody Screen Negative 05/22/2024 11:29 AM EDT [facility] [place] HISTCHK HIST CHECK PERFORMED 05/22/2024 11:29 AM EDT [facility] [place] Blood Venipuncture / Unknown 05/22/2024 11:43 AM EDT 05/22/2024 11:55 AM EDT Heath Robledo MD [facility] TEST ORDERABLES F inal Result [facility] ([place]) [address] [place] [address] * EKG-SCANNED (05/22/2024) Narrative 05/22/2024 Ordered by an unspecified provider. us Default Scanning Provider SCAN ORDERS Final Result documented in this encounter Visit Diagnoses Diagnosis Constipation- Primary Unspecified constipation Abnormal defecation Diabetes (HCC) Type II or unspecified type diabetes mellitus without mention of complication, not stated as uncontrolled Dizziness Dizziness and giddiness GERD (gastroesophageal reflux disease) Esophageal reflux HLD (hyperlipidemia) Other and unspecified hyperlipidemia HTN (hypertension) Unspecified essential hypertension Hypothyroidism Unspecified hypothyroidism IBS (irritable bowel syndrome) Irritable bowel syndrome CPAP (continuous positive airway pressure) dependence Dependence on other enabling machine BETTY (obstructive sleep apnea) Obstructive sleep apnea (adult) (pediatric) documented in this encounter Admitting Diagnoses Diagnosis Constipation Unspecified constipation documented in this encounter Administered Medications Inactive Administered Medications - up to 3 most recent administrations Medication Order MAR Action Action Date Dose Rate Site acetaminophen (TYLENOL) tablet 1,000 mg 1,000 mg Once, oral, On Mon05/22/24 at 1200, For 1 dose, Recommended maximum dose of acetaminophen is 4000 mg from all sources in 24 hours, Pre-op Given 05/22/2024 11:48 AM EDT 1,000 mg acetaminophen (TYLENOL) tablet 1,000 mg 1,000 mg Every 6 hours interval, oral, First dose on Mon05/22/24 at 1930, 1st line analgesic, Phase II/On Unit Given 05/24/2024 8:30 PM EDT 1,000 mg Given 05/24/2024 3:55 PM EDT 1,000 mg Given 05/24/2024 9:31 AM EDT 1,000 mg ALPRAZolam (XANAX) tablet 1 mg 1 mg 2 times daily, oral, First dose on Mon05/22/24 at 2230 Given 05/25/2024 9:18 AM EDT 1 mg Given 05/24/2024 8:31 PM EDT 1 mg Given 05/24/2024 9:32 AM EDT 1 mg alvimopan (ENTEREG) capsule 12 mg 12 mg Once, oral, On Mon05/22/24 at 1200, For 1 dose, Avoid use for more than 7 days or 15 doses. Inpatient use only. First dose given pre-op. Discontinue alvimopan once bowel function has returned, or after a maximum of 15 doses. 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 No, Does the patient have Endstage Renal Disease? No, Does the patient have severe Hepatic Impairment? No, Is the patient undergoing surgery for correction of complete bowel obstruction? No Given 05/22/2024 11:48 AM EDT 12 mg alvimopan (ENTEREG) capsule 12 mg 12 mg 2 times daily, oral, First dose on Mon05/22/24 at 2100, For 14 doses, Stop after 14 doses OR if patient passes flatus. 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 No, Does the patient have Endstage Renal Disease? No, Does the patient have severe Hepatic Impairment? No, Is the patient undergoing surgery for correction of complete bowel obstruction? No Given 05/25/2024 9:17 AM EDT 12 mg Given 05/24/2024 8:32 PM EDT 12 mg Given 05/24/2024 9:29 AM EDT 12 mg ARIPiprazole (ABILIFY) tablet 10 mg 10 mg Daily, oral, First dose on Mon05/23/24 at 0900, Pharmacy sub for Brexiprazole Given 05/25/2024 9:17 AM EDT 10 mg Given 05/24/2024 9:32 AM EDT 10 mg atorvastatin (LIPITOR) tablet 80 mg 80 mg Every Night, oral, First dose on Mon05/22/24 at 2230 Given 05/24/2024 8:32 PM EDT 80 mg Given 05/23/2024 8:16 PM EDT 80 mg desvenlafaxine (PRISTIQ) ER 24 hr tablet 100 mg 100 mg Daily, oral, First dose on Mon05/23/24 at 0900 Given 05/25/2024 9:44 AM EDT 100 mg Given 05/24/2024 9:36 AM EDT 100 mg Given 05/23/2024 12:26 PM EDT 100 mg dextrose 5 % and sodium chloride 0.45 % with KCl 20 mEq/L infusion (premix) 75 mL/hr Continuous, intravenous, Starting on Mon05/22/24 at 1930, Phase II/On Unit New Bag 05/23/2024 6:21 PM EDT 75 mL/hr 75 mL/hr Rate/Dose Change 05/23/2024 6:43 AM EDT 75 mL/hr 75 mL/h r New Bag 05/23/2024 3:49 AM EDT 125 mL/hr 125 mL/hr dextrose 50% (D50W) injection 25 g 25 g Every 15 min PRN, intravenous, low blood glucose (specify value in prn comments), less than 41 mg/dL or 41-69 mg/dL and unable to take PO, Starting on Mon05/23/24 at 0032, Repeat blood glucose every 15 minutes until blood glucose greater than 70 mg/dL. Call Provider if not resolved after 2 treatments Repeat BS in 1 hour, retime for 1 hour after blood sugar greater than 70 mg/dL If less than 41: Repeat Finger stick within 5 minutes with same machine Send serum glucose level: Do not wait on lab to treat diazePAM (VALIUM) injection 2.5 mg 2.5 mg Every 6 hours PRN, intravenous, Abdominal Spasms, Starting on Mon05/22/24 at 1845, Phase II/On Unit Given 05/23/2024 11:06 PM EDT 2.5 mg Given 05/23/2024 3:14 PM EDT 2.5 mg Given 05/23/2024 12:29 AM EDT 2.5 mg famotidine (PEPCID) tablet 40 mg 40 mg Every Night, oral, First dose on Mon05/22/24 at 2230, Pharmacist to renally dose if CrCl is less than 50 mL/min or on CRRT. Given 05/24/2024 8:31 PM EDT 40 m g Given 05/23/2024 8:16 PM EDT 40 mg fentaNYL PF (SUBLIMAZE) injection 100 mcg 100 mcg Once, intravenous, On Mon05/22/24 at 1200, For 1 dose, Give 25mcg - 100mcg IV push per bedside MD's order for blocks/lines. , Pre-op Given 05/22/2024 12:31 PM EDT 50 mcg gabapentin (NEURONTIN) capsule 300 mg 300 mg Every Night, oral, First dose on Mon05/22/24 at 2230 Given 05/24/2024 8:31 PM EDT 300 mg Given 05/23/2024 8:16 PM EDT 300 mg glucagon injection 1 mg 1 mg Every 15 min PRN, intraMUSCULAR, low blood glucose (specify value in prn comments), For Patients without IV access and blood glucose 41-69 mg/dL AND unable to take PO OR Less than 41 mg/dL, Starting on Mee 05/23/24 at 0032, Caution: glucagon . Roll patient on their side when administering to prevent aspiration. Call Provider if not resolved after 2 treatments Repeat BS in 1 hour, retime for 1 hour after blood sugar greater than 70 mg/dL glucose chew tab 16 g 16 g Every 15 min PRN, oral, low blood glucose (specify value in prn comments), 41-69 mg/dL, Starting on Mee 05/23/24 at 0032, For Patients who can take oral AND blood glucose 41-69 mg/dL Give 4 Tabs every 15 minutes. Recheck blood glucose every 15 minutes and repeat 15 grams of carbohydrates until blood glucose is above 70 mg/dL. Give Meal or Snack Call Provider if not resolved after 3 treatments Repeat BS in 1 hour, retime for 1 hour after blood sugar greater than 70 mg/dL heparin injection 5,000 Units 5,000 Units Once, subcutaneous, On Mon05/22/24 at 1200, For 1 dose, Pre-op Given 05/22/2024 11:49 AM EDT 5,000 Units Abdominal Tissue heparin injection 5,000 Units 5,000 Units Every 12 hours scheduled, subcutaneous, First dose on Mon05/22/24 at 2100, Phase II/On Unit, On hold since Mon05/24/2024 at 1531 until manually unheld Given 05/24/2024 9:41 AM EDT 5,000 Units Abdominal Tissue Given 05/23/2024 8:17 PM EDT 5,000 Units A bdominal Tissue Given 05/23/2024 8:52 AM EDT 5,000 Units A bdominal Tissue icosapent ethyL (VASCEPA) capsule 2 g 2 g 2 times daily, oral, First dose on Mon05/22/24 at 2230, Do not crush, chew, or split. Given 05/25/2024 9:44 A M EDT 2 g Given 05/24/2024 9:34 AM EDT 2 g Given 05/23/2024 9:24 PM EDT 2 g insulin lispro (HUMALOG, ADMELOG) injection 0-18 Units 0-18 Units 4 times daily (before meals and nightly), subcutaneous, First dose on Mon05/23/24 at 0730, If Blood Sugar is less than 180 beteween 6950-0953, DO NOT give corrective insulin unless otherwise ordered. Corrective Scale C 0 units for fingerstick blood glucose LESS than 140 mg/dL 3 units subcutaneously once for fingerstick blood glucose [140] - [180] mg/dL 6 units subcutaneously once for fingerstick blood glucose [181] - [220] mg/dL 9 units subcutaneously once for fingerstick blood glucose [221] - [260] mg/dL 12 units subcutaneously once for fingerstick blood glucose [261] - [300] mg/dL 15 units subcutaneously once for fingerstick blood glucose [301] - [350] mg/dL 18 units subcutaneously once for fingerstick blood glucose [351] - [400] mg/dL Notify provider of glucose levels LESS than [70] and GREATER than [400] isosorbide mononitrate (IMDUR) 24 hr tablet 30 mg 30 mg Daily, oral, First dose on Mon05/23/24 at 0900, DO NOT CRUSH THIS DOSAGE FORM Given 05/25/2024 9:18 AM EDT 30 mg Given 05/24/2024 9:30 AM EDT 30 mg Given 05/23/2024 8:52 AM EDT 30 mg ketorolac (TORADOL) injection 15 mg 15 mg Every 6 hours interval, intravenous, First dose on Mon05/22/24 at 1930, For 5 days, 1st line analgesic, Phase II/On Unit Given 05/25/2024 9:17 AM EDT 15 mg Given 05/25/2024 2:22 AM EDT 15 mg Given 05/24/2024 8:33 PM EDT 15 mg lactated Ringer's infusion 100 mL/hr Continuous, intravenous, Starting on Mon05/22/24 at 1200, Pre-op Restarted 05/22/2024 2:18 PM EDT New Bag 05/22/2024 11:58 AM EDT 100 mL/hr 100 mL/hr lamoTRIgine (LaMICtal) tablet 150 mg 150 mg 2 times daily, oral, First dose on Mon05/22/24 at 2230 Given 05/25/2024 9:17 AM EDT 150 mg Given 05/24/2024 8:31 PM EDT 150 mg Given 05/24/2024 9:30 AM EDT 150 mg levothyroxine (SYNTHROID) tablet 125 mcg 125 mcg Every morning on an empty stomach, oral, First dose on Mon05/23/24 at 0630, ADMINISTER ON AN EMPTY STOMACH Given 05/25/2024 5:32 AM EDT 125 mcg Given 05/24/2024 5:37 AM EDT 125 mcg meloxicam (MOBIC) tablet 15 mg 15 mg Once, oral, On Mon05/22/24 at 1200, For 1 dose, Pre-op Given 05/22/2024 11:48 AM EDT 15 mg metoprolol succinate (TOPROL-XL) 24 hr tablet 50 mg 50 mg 2 times daily, oral, First dose on Mon05/22/24 at 2230, Hold for systolic BP < 90 mmHg or for HR < 50 BPM Do Not Crush or Chew (Tablet may be split), On hold since Mon05/24/2024 at 1241 until manually unheld Given 05/24/2024 9:31 AM EDT 50 mg Given 05/23/2024 8:52 AM EDT 50 mg midazolam (VERSED) injection 2 mg 2 mg Once, intravenous, On Mon05/22/24 at 1200, For 1 dose, Give 0.5mg-2mg per bedside MD's order for lines/blocks. Look-alike/Sound-alike medication. Contains Benzyl Alcohol, Pre-op Given 05/22/2024 12:31 PM EDT 2 mg mirabegron (MYRBETRIQ) 24 hr tablet 50 mg 50 mg Daily, oral, First dose on Mon05/22/24 at 2230, *DO NOT CRUSH THIS DOSAGE FORM* Given 05/25/2024 9:44 AM EDT 50 mg Given 05/24/2024 9:35 AM EDT 50 mg Given 05/23/2024 12:28 PM EDT 50 mg ondansetron (ZOFRAN) injection 4 mg 4 mg Every 15 min PRN, intravenous, nausea, Starting on Mon05/22/24 at 1551, For 2 doses, 1st line for nausea For IV push, give over 2 - 5 minutes., PACU Given 05/22/2024 5:42 PM EDT 4 mg ondansetron (ZOFRAN) injection 4 mg 4 mg Every 8 hours PRN, intravenous, nausea, vomiting, Starting on Mon05/22/24 at 1845, Give IV if patient is unable to take orally. 1st line If inadequate response within 60 minutes, proceed to next-line agent for same PRN reason or contact provider if no further options ordered. For IV push, give over 2 - 5 minutes., Phase II/On Unit Given 05/24/2024 9:52 AM EDT 4 mg Given 05/23/2024 9:55 PM EDT 4 mg Given 05/23/2024 3:49 AM EDT 4 mg ondansetron (ZOFRAN-ODT) disintegrating tablet 4 mg 4 mg Every 8 hours PRN, oral, nausea, vomiting, Starting on Mon05/22/24 at 1845, 1st line. If inadequate response within 60 minutes, proceed to next-line agent for same PRN reason or contact provider if no further options ordered., Phase II/On Unit Given 05/23/2024 8:39 PM EDT 4 mg oxyCODONE (ROXICODONE) immediate release tablet 5 mg 5 mg Once as needed, oral, moderate pain (4-6), severe pain (7-10), For patients going home if they have not received hydromorphone or morphine., Starting on Mon05/22/24 at 1551, For 1 dose, Look-alike/Sound-alike medication, PACU Given 05/22/2024 5:36 PM EDT 5 mg oxyCODONE (ROXICODONE) immediate release tablet 5 mg 5 mg Every 4 hours PRN, oral, moderate pain (4-6), Starting on Mon05/22/24 at 1845, 2nd line analgesic. Give only if inadequate response (less than 50% reduction in pain score) 60 minutes after administration of 1st line analgesics + adjuvants (if ordered). Look-alike/Sound-alike medication, Phase II/On Unit Given 05/23/2024 11:48 PM EDT 5 mg Given 05/23/2024 10:11 AM EDT 5 mg potassium, sodium phosphates (PHOS-NAK) 280-160-250 mg packet 1 packet 1 packet 2 times daily, oral, First dose on Mon05/24/24 at 1000, Mix contents of each packet with 75 mL of water or juice; stir well and use promptly. May give via feeding tube (except J-tube) if patient can tolerate enteric feeding. Given 05/25/2024 9:18 AM EDT 1 packet Given 05/24/2024 8:32 PM EDT 1 packet Given 05/24/2024 9:52 AM EDT 1 packet prazosin (MINIPRESS) capsule 6 mg 6 mg Every Night, oral, First dose (after last reorder) on Mon05/22/24 at 2300 Given 05/24/2024 10:04 PM EDT 6 mg Given 05/23/2024 9:24 PM EDT 6 mg pregabalin (LYRICA) capsule 75 mg 75 mg Once, oral, On Mon05/22/24 at 1200, For 1 dose, Pre-op Given 05/22/2024 11:48 AM EDT 75 mg prochlorperazine (COMPAZINE) injection 10 mg 10 mg Once as needed, intravenous, nausea, vomiting, Starting on Mon05/23/24 at 0015, For 1 dose Given 05/23/2024 12:20 AM EDT 10 mg promethazine (PHENERGAN) 12.5 mg in sodium chloride 0.9 % (NS) 50 mL IVPB 12.5 mg Once as needed, intravenous, Administer over 20 Minutes, nausea, vomiting, Starting on Mon05/22/24 at 1956, For 1 dose, Pharmacists to reduce dose to 12.5 mg regardless of route in patients 65 years and older. EXCEPTION: Patients on chemotherapy or receiving transfusion. IVPB Started 05/22/2024 8:18 PM EDT 12.5 mg 150 mL/hr scopolamine (TRANSDERM-SCOP) patch 1 mg/72 hr 1.5 mg Once (1 patch), transdermal (scopolamine), Administer over 72 Hours, On Mon05/22/24 at 1200, For 1 dose, Pre-op Patch Applied 05/22/2024 11:49 AM EDT 1.5 mg Behind Right Ear simethicone (MYLICON) chewable tablet 80 mg 80 mg Every 6 hours PRN, oral, gas pain, flatulence, Starting on Mon05/24/24 at 0057 Given 05/24/2024 9:52 AM EDT 80 mg Given 05/24/2024 1:06 AM EDT 80 mg sodium chloride 0.9 % infusion 100 mL/hr Continuous, intravenous, Starting on Mon05/24/24 at 1300 New Bag 05/24/2024 1:25 PM EDT 100 mL/hr 100 mL/hr sodium chloride 0.9 % infusion 20 mL/hr Once, intravenous, On Mon05/24/24 at 1600, For 1 dose, Used to prep and flush blood tubing before and in between units of blood. New Bag 05/24/2024 7:20 PM EDT 20 mL/hr 20 mL/h r sodium chloride 0.9% (NS) bolus 500 mL Once, intravenous, Administer over 30 Minutes, On Mon05/25/24 at 0930, For 1 dose New Bag 05/25/2024 9:59 AM EDT 500 mLs 1000 mL/hr documented in this encounter Active and Recently Administered Medications Times are shown in EDT. Scheduled Medication Order 05/23/2024 05/24/2024 05/25/2024 acetaminophen (TYLENOL) tablet 1,000 mg(Linked Group 1) 1,000 mg Every 6 hours interval, oral, First dose on Mon05/22/24 at 1930, 1st line analgesic, Phase II/On Unit 0122 (Not Given - Provider: Kylee Martinez RN - Reason: Contraindicated)0644 (Not Given - Provider: Kylee Martinez RN - Reason: Patient/family refused)1500 (Given - Provider: Fahad Escalona RN)2017 (Given - Provider: Alecia Rios, RAYSA) 0224 (Given - Provider: Alecia Rios RN)0931 (Given - Provider: Buster Constantino RN)1555 (Given - Provider: Buster Constantino RN)2029 (Given - Provider: Alecia Rios RN) 221 (Not Given - Provider: Alecia Rios RN - Reason: Other (with Comment) - Comment: Daily Tylenol max met)1036 (Not Given - Provider: Fahad Escalona RN - Reason: Medication/ Dose Unavailable)1500 (Due - Provider: Renetta Whelan [facility]) ALPRAZolam (XANAX) tablet 1 mg 1 mg 2 times daily, oral, First dose on Mon05/22/24 at 2230 0852 (Given - Provider: Fahad Escalona RN)2016 (Given - Provider: Alecia Rios RN) 09 (Given - Provider: Buster Constantino RN)2030 (Given - Provider: Alecia Rios RN) 09 (Given - Provider: Fahad Escalona RN) alvimopan (ENTEREG) capsule 12 mg 12 mg 2 times daily, oral, First dose on Mon05/22/24 at 2100, For 14 doses, Stop after 14 doses OR if patient passes flatus. 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 No, Does the patient have Endstage Renal Disease? No, Does the patient have severe Hepatic Impairment? No, Is the patient undergoing surgery for correction of complete bowel obstruction? No 0852 (Given - Provider: Fahad Escalona RN)2015 (Given - Provider: Alecia Rios RN) 0929 (Given - Provider: Buster Constantino RN)2031 (Given - Provider: Alecia Rios RN) 09 (Given - Provider: Fahad Escalona RN) ARIPiprazole (ABILIFY) tablet 10 mg 10 mg Daily, oral, First dose on Mon05/23/24 at 0900, Pharmacy sub for Brexiprazole 1509 (Not Given - Provider: Fahad Escalona RN - Reason: Patient/family refused) 0932 (Given - Provider: Buster Constantino RN) 0917 (Given - Provider: Fahad Escalona RN) armodafinil 200mg tablet patient's own medication supply 1 tablet Daily, oral, First dose on Mon05/23/24 at 0900, Non-formulary patient's own medication supply 1509 (Not Given - Provider: Fahad Escalona RN - Reason: Medication/ Dose Unavailable) 0958 (Not Given - Provider: Fahad Escalona RN - Reason: Medication/ Dose Unavailable) 1036 (Not Given - Provider: Fahad Escalona RN - Reason: Medication/ Dose Unavailable) atorvastatin (LIPITOR) tablet 80 mg 80 mg Every Night, oral, First dose on Mon05/22/24 at 2230 2015 (Given - Provider: Alecia Rios RN) 2031 (Given - Provider: Alecia Rios RN) desvenlafaxine (PRISTIQ) ER 24 hr tablet 100 mg 100 mg Daily, oral, First dose on Mon05/23/24 at 0900 1226 (Given - Provider: Buster Constantino RN) 0936 (Given - Provider: Buster Constantino RN) 0944 (Given - Provider: Fahad Escalona RN) famotidine (PEPCID) tablet 40 mg 40 mg Every Night, oral, First dose on Mon05/22/24 at 2230, Pharmacist to renally dose if CrCl is less than 50 mL/min or on CRRT. 2015 (Given - Provider: Alecia Rios RN) 2030 (Given - Provider: Alecia Rios RN) gabapentin (NEURONTIN) capsule 300 mg 300 mg Every Night, oral, First dose on Mon05/22/24 at 2230 2015 (Given - Provider: Alecia Rios RN) 2030 (Given - Provider: Alecia Rios RN) heparin injection 5,000 Units 5,000 Units Every 12 hours scheduled, subcutaneous, First dose on Mon05/22/24 at 2100, Phase II/On Unit, On hold since Mon05/24/2024 at 1531 until manually unheld 0852 (Given - Provider: Fahad Escalona RN)2016 (Given - Provider: Alecia Rios RN) 0941 (Given - Provider: Fahad Escalona RN)153 (Held by provider - Provider: Ac Wilks MD)2099 (Not Given - Provider: Alecia Rios RN - Reason: Per MD Order) 0900 (Not Given - Provider: Fahad Escalona RN - Reason: Per MD Order)173 (Unheld by provider - Provider: Automatic Discharge Provider) icosapent ethyL (VASCEPA) capsule 2 g 2 g 2 times daily, oral, First dose on Mon05/22/24 at 2230, Do not crush, chew, or split. 1230 (Given - Provider: Buster Constantino RN)212 (Given - Provider: Alecia Rios RN) 0934 (Given - Provider: Buster Constantino RN)215 (Not Given - Provider: Alecia Rios RN - Reason: Patient/family refused) 0944 (Given - Provider: Fahad Escalona RN) insulin lispro (HUMALOG, ADMELOG) injection 0-18 Units 0-18 Units 4 times daily (before meals and nightly), subcutaneous, First dose on Mon05/23/24 at 0730, If Blood Sugar is less than 180 beteween [id number], DO NOT give corrective insulin unless otherwise ordered. Corrective Scale C 0 units for fingerstick blood glucose LESS than 140 mg/dL 3 units subcutaneously once for fingerstick blood glucose [140] - [180] mg/dL 6 units subcutaneously once for fingerstick blood glucose [181] - [220] mg/dL 9 units subcutaneously once for fingerstick blood glucose [221] - [260] mg/dL 12 units subcutaneously once for fingerstick blood glucose [261] - [300] mg/dL 15 units subcutaneously once for fingerstick blood glucose [301] - [350] mg/dL 18 units subcutaneously once for fingerstick blood glucose [351] - [400] mg/dL Notify provider of glucose levels LESS than [70] and GREATER than [400] 0644 (Not Given - Provider: Kylee Martinez RN - Reason: Order parameters not met)1133 (Not Given - Provider: Fahad Escalona RN - Reason: Order parameters not met)170 (Not Given - Provider: Fahad Escalona RN - Reason: Order parameters not met)203 (Not Given - Provider: Alecia Rios RN - Reason: Order parameters not met) 0631 (Not Given - Provider: Alecia Rios RN - Reason: Other (with Comment) - Comment: patient unable to eat much due to nausea)1209 (Not Given - Provider: Fahad Escalona RN - Reason: Order parameters not met)1617 (Not Given - Provider: Fahad Escalona RN - Reason: NPO)2129 (Not Given - Provider: Alecia Rios RN - Reason: Order parameters not met) 0638 (Not Given - Provider: Alecia Rios RN - Reason: Order parameters not met)1300 (Not Given - Provider: Fahad Escalona RN - Reason: Order parameters not met)1630 (Due) isosorbide mononitrate (IMDUR) 24 hr tablet 30 mg 30 mg Daily, oral, First dose on Mon05/23/24 at 0900, DO NOT CRUSH THIS DOSAGE FORM 0852 (Given - Provider: Fahad Escalona RN) 0930 (Given - Provider: Buster Constantino RN) 0918 (Given - Provider: Fahad Escalona RN) ketorolac (TORADOL) injection 15 mg(Linked Group 1) 15 mg Every 6 hours interval, intravenous, First dose on Mon05/22/24 at 1930, For 5 days, 1st line analgesic, Phase II/On Unit 0219 (Given - Provider: Kylee Martinez RN)0740 (Given - Provider: Kylee Martinez RN)1500 (Given - Provider: Fahad Escalona RN)2016 (Given - Provider: Alecia Rios RN) 0224 (Given - Provider: Alecia Rios RN)0951 (Given - Provider: Fahad Escalona RN)1558 (Not Given - Provider: Buster Constantino RN - Reason: Patient/family refused)203 (Given - Provider: Alecia Rios RN) 022 (Given - Provider: Alecia Rios RN)0917 (Given - Provider: Fahad Escalona RN)1500 (Due - Provider: Renetta Whelan [facility]) lamoTRIgine (LaMICtal) tablet 150 mg 150 mg 2 times daily, oral, First dose on Mon05/22/24 at 2230 0852 (Given - Provider: Fahad Escalona RN)2016 (Given - Provider: Alecia Rios RN) 0930 (Given - Provider: Buster Constantino RN)2030 (Given - Provider: Alecia Rios RN) 0917 (Given - Provider: Fahad Escalona RN) levothyroxine (SYNTHROID) tablet 125 mcg 125 mcg Every morning on an empty stomach, oral, First dose on Mon05/23/24 at 0630, ADMINISTER ON AN EMPTY STOMACH 0643 (Not Given - Provider: Kylee Martinez RN - Reason: Patient/family refused) 0537 (Given - Provider: Alecia Rios RN) 0532 (Given - Provider: Alecia Rios RN) metoprolol succinate (TOPROL-XL) 24 hr tablet 50 mg 50 mg 2 times daily, oral, First dose on Mon05/22/24 at 2230, Hold for systolic BP < 90 mmHg or for HR < 50 BPM Do Not Crush or Chew (Tablet may be split), On hold since Mon05/24/2024 at 1241 until manually unheld 0852 (Given - Provider: Fahad Escalona RN)2036 (Not Given - Provider: Alecia Rios RN - Reason: Order parameters not met) 0931 (Given - Provider: Buster Constantino RN)1241 (Held by provider - Provider: Ac Wilks MD)2100 (Not Given - Provider: Alecia Rios RN - Reason: Per MD Order) 0900 (Not Given - Provider: Fahad Escalona RN - Reason: Per MD Order)1731 (Unheld by provider - Provider: Automatic Discharge Provider) mirabegron (MYRBETRIQ) 24 hr tablet 50 mg 50 mg Daily, oral, First dose on Mon05/22/24 at 2230, *DO NOT CRUSH THIS DOSAGE FORM* 1228 (Given - Provider: Buster Constantino RN) 0935 (Given - Provider: Buster Constantino RN) 0944 (Given - Provider: Fahad Escalona RN) potassium, sodium phosphates (PHOS-NAK) 280-160-250 mg packet 1 packet 1 packet 2 times daily, oral, First dose on Mon05/24/24 at 1000, Mix contents of each packet with 75 mL of water or juice; stir well and use promptly. May give via feeding tube (except J-tube) if patient can tolerate enteric feeding. 0952 (Given - Provider: Fahad Escalona, RAYSA)2031 (Given - Provider: Alecia Rios, RN) 09 (Given - Provider: Fahad Escalona, RAYSA) prazosin (MINIPRESS) capsule 6 mg 6 mg Every Night, oral, First dose (after last reorder) on Mon05/22/24 at 2300 2124 (Given - Provider: Alecia Rios, RN) 2204 (Given - Provider: Alecia Rios, RAYSA) sodium chloride 0.9 % infusion (COMPLETED)(Linked Group 2) 20 mL/hr Once, intravenous, On Mon05/24/24 at 1600, For 1 dose, Used to prep and flush blood tubing before and in between units of blood. 1920 (New Bag - Provider: Fahad Escalona RN) sodium chloride 0.9% (NS) bolus (COMPLETED) 500 mL Once, intravenous, Administer over 30 Minutes, On Mon05/25/24 at 0930, For 1 dose 0959 (New Bag - Provider: Fahad Escalona RN) Continuous Medication Order 05/23/2024 05/24/2024 05/25/2024 dextrose 5 % and sodium chloride 0.45 % with KCl 20 mEq/L infusion (premix) (CANCELED) 75 mL/hr Continuous, intravenous, Starting on Mon05/22/24 at 1930, Phase II/On Unit 0349 (New Bag - Provider: Kylee Martinez, RAYSA)0643 (Rate/Dose Change - Provider: Kylee Martinez RN)1821 (New Bag - Provider: Fahad Escalona, RAYSA) sodium chloride 0.9 % infusion 100 mL/hr Continuous, intravenous, Starting on Mon05/24/24 at 1300 1325 (New Bag - Provider: Fahad Escalona, RAYSA) PRN Medication Order 05/23/2024 05/24/2024 05/25/2024 dextrose 50% (D50W) injection 25 g 25 g Every 15 min PRN, intravenous, low blood glucose (specify value in prn comments), less than 41 mg/dL or 41-69 mg/dL and unable to take PO, Starting on Mee 05/23/24 at 0032, Repeat blood glucose every 15 minutes until blood glucose greater than 70 mg/dL. Call Provider if not resolved after 2 treatments Repeat BS in 1 hour, retime for 1 hour after blood sugar greater than 70 mg/dL If less than 41: Repeat Finger stick within 5 minutes with same machine Send serum glucose level: Do not wait on lab to treat diazePAM (VALIUM) injection 2.5 mg (CANCELED) 2.5 mg Every 6 hours PRN, intravenous, Abdominal Spasms, Starting on Mon05/22/24 at 1845, Phase II/On Unit 002 (Given - Provider: Kylee Martinez, RN)1513 (Given - Provider: Fahad Escalona RN)2305 (Given - Provider: Alecia Rios, RAYSA) glucagon injection 1 mg 1 mg Every 15 min PRN, intraMUSCULAR, low blood glucose (specify value in prn comments), For Patients without IV access and blood glucose 41-69 mg/dL AND unable to take PO OR Less than 41 mg/dL, Starting on Mee 05/23/24 at 0032, Caution: glucagon . Roll patient on their side when administering to prevent aspiration. Call Provider if not resolved after 2 treatments Repeat BS in 1 hour, retime for 1 hour after blood sugar greater than 70 mg/dL glucose chew tab 16 g 16 g Every 15 min PRN, oral, low blood glucose (specify value in prn comments), 41-69 mg/dL, Starting on Mee 05/23/24 at 0032, For Patients who can take oral AND blood glucose 41-69 mg/dL Give 4 Tabs every 15 minutes. Recheck blood glucose every 15 minutes and repeat 15 grams of carbohydrates until blood glucose is above 70 mg/dL. Give Meal or Snack Call Provider if not resolved after 3 treatments Repeat BS in 1 hour, retime for 1 hour after blood sugar greater than 70 mg/dL ondansetron (ZOFRAN) injection 4 mg(Linked Group 3) 4 mg Every 8 hours PRN, intravenous, nausea, vomiting, Starting on Mon05/22/24 at 1845, Give IV if patient is unable to take orally. 1st line If inadequate response within 60 minutes, proceed to next-line agent for same PRN reason or contact provider if no further options ordered. For IV push, give over 2 - 5 minutes., Phase II/On Unit 034 (Given - Provider: Kylee Martinez, RAYSA)2038 (See Alternative - Provider: Alecia Rios RN)2154 (Given - Provider: Alecia Rios RN) 0952 (Given - Provider: Fahad Escalona, RN) ondansetron (ZOFRAN-ODT) disintegrating tablet 4 mg(Linked Group 3) 4 mg Every 8 hours PRN, oral, nausea, vomiting, Starting on Mon05/22/24 at 1845, 1st line. If inadequate response within 60 minutes, proceed to next-line agent for same PRN reason or contact provider if no further options ordered., Phase II/On Unit 034 (See Alternative - Provider: Kylee Martinez RN)2038 (Given - Provider: Alecia Rios RN)2154 (See Alternative - Provider: Alecia Rios RN) 0952 (See Alternative - Provider: Fahad Escalona, RAYSA) oxyCODONE (ROXICODONE) immediate release tablet 5 mg 5 mg Every 4 hours PRN, oral, moderate pain (4-6), Starting on Mon05/22/24 at 1845, 2nd line analgesic. Give only if inadequate response (less than 50% reduction in pain score) 60 minutes after administration of 1st line analgesics + adjuvants (if ordered). Look-alike/Sound-alike medication, Phase II/On Unit 1011 (Given - Provider: Buster Constantino RN)2348 (Given - Provider: Alecia Rios RN) prochlorperazine (COMPAZINE) injection 10 mg (COMPLETED) 10 mg Once as needed, intravenous, nausea, vomiting, Starting on Mee 05/23/24 at 0015, For 1 dose 0020 (Given - Provider: Kylee Martinez RN) simethicone (MYLICON) chewable tablet 80 mg 80 mg Every 6 hours PRN, oral, gas pain, flatulence, Starting on Mon05/24/24 at 0057 0106 (Given - Provider: Alecia Rios RN)0952 (Given - Provider: Fahad Esclaona, RAYSA) Linked Groups Order Group 1: acetaminophen (TYLENOL) tablet 1,000 mgJump to med 1,000 mg Every 6 hours interval, oral, First dose on Mon05/22/24 at 1930, 1st line analgesic, Phase II/On Unit And ketorolac (TORADOL) injection 15 mgJump to med 15 mg Every 6 hours interval, intravenous, First dose on Mon05/22/24 at 1930, For 5 days, 1st line analgesic, Phase II/On Unit Group 2: Prepare RBC: 2 Units (COMPLETED) Routine, Prepare 2 Units And Transfuse RBC: 2 Units (COMPLETED) Routine, Transfuse 2 Units And sodium chloride 0.9 % infusion (COMPLETED)Jump to med 20 mL/hr Once, intravenous, On Mon05/24/24 at 1600, For 1 dose, Used to prep and flush blood tubing before and in between units of blood. Group 3: ondansetron (ZOFRAN-ODT) disintegrating tablet 4 mgJump to med 4 mg Every 8 hours PRN, oral, nausea, vomiting, Starting on Mon05/22/24 at 1845, 1st line. If inadequate response within 60 minutes, proceed to next-line agent for same PRN reason or contact provider if no further options ordered., Phase II/On Unit Or ondansetron (ZOFRAN) injection 4 mgJump to med 4 mg Every 8 hours PRN, intravenous, nausea, vomiting, Starting on Mon05/22/24 at 1845, Give IV if patient is unable to take orally. 1st line If inadequate response within 60 minutes, proceed to next-line agent for same PRN reason or contact provider if no further options ordered. For IV push, give over 2 - 5 minutes., Phase II/On Unit documented in this encounter Care Teams Telephone Station Repairer Relationship Specialty Start Date End Date Deandra Lopez APRN PCP - General Nurse Practitioner 04/18/22 06/03/24 documented as of this encounter
--- OUTSIDE RECORDS SUMMARY | 2024-05-22 13:28 | XMS_ITS | Encounter Summary ---
Author Organization [facility] In iatives Address [address] [place] [address] Care Team Providers Care Bulb Tester Name Role Phone Deandra Lopez APRN Primary Care Provider [phone] Reason for Visit * Auth/Cert (Routine) Specialty Diagnoses / Procedures Referred By Contac t Referred To Contact Diagnoses Abnormal defecation Abnormal defecation Procedures [place] EXPLORATORY LAPAROTOMY CELIOTOMY W/WO BIOPSY SPX LAPAROTOMY, EXPLORATORY Heath Robledo MD [address] [place] [address] [address] [place] [address] Phone: tel: fax: Referral ID Status Reason Start Date Expiration Date Visits Re quested Visits Authorized [id number] 04/16/2024 1 1 Encounter Details Date Type Department Care Team (Late st Contact Info) Description 05/22/2024 1:28 PM EDT - 05/22/2024 3:50 PM EDT Surgery [facility] Operating Room [address] [place] [address] Heath Robledo MD [address] [place], [place] [address] [address] [place] [address] (EXPLORATORY LAPAROTOMY WITH CREATION OF END ILEOSTOMY) Social History Tobacco Use Types Packs/Day Years [...] your living situation today? I have a [facility] [place] place to live 05/22/2024 Think about the [...] Do you speak a language other than [place] at [facility]? No 05/22/2024 Do you want help with [...] Sign Reading Time Taken Comments Blood Pressure 99/60 05/22/2024 12:44 PM EDT Pulse 65 05/22/2024 12:44 PM EDT Temperature 36.3 C (97.4 F) 05/22/2024 11:14 AM EDT Respiratory Rate 14 05/22/2024 12:4 4 PM EDT Oxygen Saturation 98% 05/22/2024 12: 44 PM EDT 2 L NC Inhaled Oxygen Concentration - - Weight 81.1 kg (178 lb 12.8 oz) 025 11:14 AM EDT Height - - Body Mass Index 29.75 05/22/2024 8:24 PM [...] PM Result Value Ref Range Issue Date/Time [id number] Product Identification Red Blood Cells Product Code [id number] Status Information Transfused Unit Number [id number] Blood Type 5100 Cross Match Results Compatible Glucose, Nova Meter Status: None Collection Time: 05/24/24 4:35 PM Result Value Ref Range POC-GLUCOSE 98 70 - 110 mg/dL Bond Underwriter [id number] Glucose, Nova Meter Status: None Collection Time: 05/25/24 12:01 AM Result Value Ref Range POC-GLUCOSE 101 70 - 110 mg/dL Bond Underwriter [id number] Hemoglobin and hematocrit Status: Abnormal Collection Time: [...] Range POC-GLUCOSE 102 70 - 110 mg/dL Bond Underwriter [id number] CBC with automated diff Status: Abnormal Collection [...] Range POC-GLUCOSE 83 70 - 110 mg/dL Bond Underwriter [id number] Radiology: CT ABDOMEN/PELVIS WITHOUT IV CONTRAST Standard [...] Your Medications These medications were sent to [facility] [address] [place] [address] [address] [facility] [address] acetaminophen 500 MG tablet ondansetron 4 MG disintegrating tablet oxyCODONE 5 MG immediate release tablet potassium, sodium phosphates 280-160-250 mg Pwpk packet simethicone 80 MG chewable tablet Contact information for follow-up Primary care provider (PCP) Next Steps: Follow up Deandra Lopez APRN Specialty: Nurse Practitioner Relationship: PCP - General [address] [address] Next Steps: Follow up [facility] Nurse Next Steps: Follow up in 3 day(s) Heath Robledo MD Specialty: Colon and Rectal Surgery [facility] [address] [place] [address] [address] Next Steps: Follow up in 1 week(s) Discharge Disposition:Home Time spent on Discharge: > 30 minutes Signed: Electronically signed by Per Anderson MD - 05/25/2024 - 1:06 PM [facility] documented in this encounter Discharge Instructions * Attachments The following attachments cannot be sent through Care Everywhere. * Exploratory Laparotomy Adult Care After ([place]) * Ileostomy Care After ([place]) * Ileostomy Home Guide ([place]) * Ondansetron Tablets ([place]) * Oxycodone Capsules or Tablets ([place]) * SIMETHICONE ORAL TABLET (ESTONIAN) * Potassium Phosphate; Sodium Phosphate Solution ([place]) documented in this encounter Medications at Time [...] 7:52 AM EDT During the timeframe of 8093-5231 patient care was provided through a virtually integrated care team model. Any physical assessments or hands-on patient care documented by this Virtual RN were completed with a clinician at the bedside and the virtual RN acting as a scribe/mentor. * Susan Miller RN - 05/25/2024 4:33 AM EDT During the timeframe of 0841-7113 patient care was provided through a virtually integrated care team model. Any physical assessments or hands-on patient care documented by this Virtual RN were completed with a clinician at the bedside and the virtual RN acting as a scribe/mentor. * Mary Carmen Chavez RN - 05/24/2024 5:21 PM EDT During the timeframe of 3632-8839 patient care will be provided through a [...] Patient declined Home Health. Bag of ostomy suppliesin chair; said she plans to call insurance. [...] POC-GLUCOSE 127 (H) 70 - 110 mg/dL Bond Underwriter [id number] Glucose, Nova Meter Status: Abnormal Collection Time: 05/23/24 7:44 PM Result Value Ref Range POC-GLUCOSE 113 (H) 70 - 110 mg/dL Bond Underwriter [id number] Basic Metabolic Panel Status: Abnormal Collection Time: [...] Osmolality Calc 253.2 mOsm/kg CBC - Hemogram (-BK) Status: Abnormal Collection Time: 05/24/24 12:54 AM [...] 63 BPM ATRIAL RATE (MCT) 63 BPM [place] Interval 186 ms QRS-INTERVAL (MSEC) 92 ms QT Interval 444 ms QTC Interval 454 ms P [place] 15 degrees R AXIS (MCT) 45 degrees T Wave [place] 35 degrees Swain Diagnosis Normal sinus rhythm Low voltage QRS Borderline ECG When compared with ECG of 07-NOV-2021 10:56, ST no longer depressed in Anterior leads Nonspecific T wave abnormality no longer evident in Anterolateral leads Glucose, Nova Meter Status: Abnormal Collection Time: 05/24/24 5:53 AM Result Value Ref Range POC-GLUCOSE 151 (H) 70 - 110 mg/dL Bond Underwriter [id number] Glucose, Nova Meter Status: Abnormal Collection Time: 05/24/24 10:18 AM Result Value Ref Range POC-GLUCOSE 127 (H) 70 - 110 mg/dL Bond Underwriter [id number] XR KUB PORTABLE, XR chest AP portable [...] Ileostomy RLQ Date First Assessed/Time First Assessed: 05/22/24 1930 Ostomy Type: Ileostomy Location: RLQ Ostomy Status Functioning;Moist Stoma Color Red Peristomal Skin Intact Interventions Change pouch;Cleanse skin;Cleanse stoma [facility] RN follow up for reinforcement of [...] with taking care of ostomy at home. [facility] RN recommended home health with patient upon discharge and patient agreed to have home health until more established with routine at home. Reviewed wear time and pouch emptying at ? to ?? full. Reviewed DME process of ordering supplies. Contact information provided with request to notify [facility] RN of ostomy support, troubleshooting needs. Offered follow up appointment for early next week, patient agreed and appointment scheduled for Monday(05/28). Ostomy supplies left with patient to take home. Current Ostomy Supplies: Novinger Blue convex, two piece system (#[id number], #[id number]) Adapt Ostomy Ring, 2 #0686 Stoma Powder #7906 Cavilon Barrier [employer]well #[id number] * Heath Robledo MD - 05/24/2024 7:31 [...] 8:07 PM EDT During the timeframe of 1818-7714 patient care was provided through a virtually integrated care team model. Any physical assessments or hands-on patient care documented by this Virtual RN were completed with a clinician at the bedside and the virtual RN acting as a scribe/mentor * Mary Carmen Chavez RN - 05/23/2024 3:47 PM EDT During the timeframe of 0569-1260 patient care will be provided through a [...] tablet 10 mg 10 mg oral Daily rAistides Pickering PA-C armodafinil 200mg tablet patient's own [...] g 16 g oral Q15 Min PRN Aristdies Pickering PA-C heparin injection 5,000 Units 5,000 [...] PA-C 05/23/2024 at 7:31 AM Hospitalist LELO, [employer]icians Attending: Dr. Sylvester Voice hardboard press operator technology ([employer]) is used for dictation of this note and sound-alike words might be erroneously placed despite reviewing the note for accuracy. Errors in dictation mayreflect use of voice recognition software and not all errors in hardboard press operator may have been detected prior to signing. [...] 3:21 AM EDT During the timeframe of 3457-3787 patient care was provided through a virtually integrated care team model. Any physical assessments or hands-on patient care documented by this Virtual RN were completed with a clinician at the bedside and the virtual RN acting as a scribe/mentor documented in this encounter H&P Notes * Aristides Pickering PA-C - 05/22/2024 7:51 PM EDT [facility] Patient Name: Demetra Diaz : 1980 Date: 05/22/2024 PCP: Deandra Lopez APRN Date of Admission: 05/22/2024 Chief Complaint: Postoperative management History of Present Illness Demetra Diaz is a 44 y.o. female with a history of DM, hypertension, hyperlipidemia, GERD, hypothyroidism, IBS, BETTY on CPAP, PTSD, anxiety, depression, and obesity who presents to [facility] in [place], [place] for further evaluation and management of [...] Sumatriptan Palpitations Tape, Permeable Adhesive Rash Documented LENS DOTTER Medications: Medications Prior to Admission Medication Sig [...] POC-GLUCOSE 176 (H) 70 - 110 mg/dL Bond Underwriter [id number] Microbiology Results (last 7 days) No results [...] tablet 1,000 mg 1,000 mg oral Q6H Hetah Robledo MD 1,000 mg at 05/22/24 1901 [...] 5,000 Units 5,000 Units subcutaneous Q12H Heath Robleod MD icosapent ethyL (VASCEPA) capsule 2 g [...] decision making required. -Evaluated 05/22/2024, 7:51 PM IAristides, have personally reviewed pertinent laboratory, EKG, and [...] Aristides Pickering PA-C 05/22/2024, 7:51 PM Voice hardboard press operator technology ([employer]) is used for dictation of this note and sound-alike words might be erroneously placed despite reviewing the note for accuracy. Errors in dictation mayreflect use of voice recognition software and not all errors in hardboard press operator may have been detected prior to signing. [...] PO at 48 hours post op consult Crop Grain Or Livestock Farm Manager Frequency: Until Discontinued Number of Occurrences: Until [...] Von Qureshi D.O. 05/23/2024 3:50 * Elli Almanzar APRN - 05/22/2024 11:09 AM EDTSummary: Pre Operative [...] 4 mg 4 mg intravenous Q8H PRN Heaht Robledo MD 4 mg at 05/23/24 0349 [...] IBW: 125# Percent IBW: 143% Estimated Needs: 1331-9970 kcal (25kcal/kg actual wt VS MSJ X [...] Specimens (From admission, onward) Start Ordered 05/22/24 1605 Tissue Exam RELEASE UPON ORDERING 05/22/24 1605 [...] Record [x] Malnutrition / BMI - 05/23 Railroad Signal And Switch Operator Consult Note: Patient meets criteria for SEVERE malnutrition. / Body mass index is 29.75 kg/m?? [x] Unintentional Insufficient Energy Intake - 05/23 Railroad Signal And Switch Operator Consult Note: Energy Intake: < 75% of est needs for > 3 months [x] Weight Loss - 05/23 Railroad Signal And Switch Operator Consult Note: Weight Loss: >10% over 6 [...] Medical Record [x] Dietary consult - 05/23 Railroad Signal And Switch Operator consult completed [x] Nutritional supplements - 05/23 Railroad Signal And Switch Operator Consult Note: Continue CLD as tolerated. PO diet advancement per Surgery. Will order ONS prn CDS/Fertilizer Applicator Signature: Radha Pfeiffer Phone #: [phone] Date/Time: 05/27/2024 8:49 AM EDT Moderate Malnutrition [...] loss; moderate- severe fluid accumulation; measurably reduced general practitioner strength Moderate Malnutrition (in chronic illness) Energy [...] permanent part of the Medical Record 2023 [facility] Reviewed: 03/2023 * Plan of Care - [...] Montoya RN - 05/24/2024 1:00 AM EDTSummary: COMMUNITY RELATIONS SPECIALIST 0050 Responded to COMMUNITY RELATIONS SPECIALIST. Patient is complaining of 10/10 pain in [...] Info) Description 07/17/2024 11:00 AM EDT Appointment [facility]ound [facility] Ostomy Therapy [address] [place] [address] 08/28/2024 9:15 AM EDT Office Visit [facility] [address] [place] [address] Chandrika Santana, ACCOUNT MANAGEMENT SPECIALIST [address] [place] [address] 04/17/2025 8:30 AM EDT Office Visit [facility] [place] [address] [place] [address] Tamara Sow PA-C [address] [place] [address] documented as of this encounter Procedures [...] 05/23/2024 12:4 0 AM EDT TISSUE EXAM [facility] AP Routine 05/22/2024 4:05 PM EDT Abnormal defecation [place] EXPLORATORY LAPAROTOMY CELIOTOMY W/WO BIOPSY SPX 05/22/2024 2:18 PM EDT Abnormal defecation Case Notes IN 1130, 2HRS(A), PA REQUESTED, PASS TYPE AND SCREEN ([place] BKR) STAT 05/22/2024 11:43 AM EDT EKG-SCANNED 05/22/2024 documented in this encounter Results * Glucose, Nova Meter (05/25/2024 12:42 PM EDT) POC-GLUCOSE 83 70 - 110 mg/dL 05/25/2024 12:43 PM EDT [facility] Comment: In the event of poor peripheral blood flow, venous or arterial blood should be used due to the potential of erroneous results. Protocols Followed Notified Nurse RBV Bond Underwriter [id number] 05/25/2024 12:43 PM EDT [facility] Blood WHOLE BLOOD / Unknown 05/25/2024 12:42 PM EDT 05/25/2024 12:43 PM EDT Narrative [facility] - 05/25/2024 12:43 PM EDT Bond Underwriter ID is - [id number] Per Anderson MD POINT OF CARE TEST ORDERABLES Fi nal Result Performing Organization Address City/State/[facility] Co de Phone Number [facility] [address] [phone] * (ABNORMAL) Basic Metabolic Panel (05/25/2024 6:09 AM EDT) Sodium 126(L) 136 - 145 meq/L 05/25/2024 7:04 AM EDT [facility] Potassium 4.3 3.4 - 5.1 meq/L 05/25/2024 7:04 AM EDT [facility] CO2 21(L) 22 - 29 meq/L 05/25/2024 7:04 AM EDT [facility] Chloride 97(L) 98 - 112 meq/L 05/25/2024 7:04 AM EDT [facility] Glucose 90 74 - 100 mg/dL 05/25/2024 7:04 AM EDT [facility] BUN 6.6(L) 7.0 - 18.7 mg/dL 05/25/2024 7:04 AM EDT [facility] Creatinine 0.79 0.57 - 1.11 mg/dL 05/25/2024 7:04 AM EDT [facility] BUN/Creatinine 8 8 - 20 05/25/2024 7:04 AM EDT [facility] Calcium 8.3(L) 8.4 - 10.2 mg/dL 05/25/2024 7:04 AM EDT [facility] Anion Gap 12 4 - 12 05/25/2024 7:04 AM EDT [facility] eGFR (mL/min/1.73m2) 94 >=60 mL/min/1.7 3m2 05/25/2024 7:04 AM EDT [facility] Osmolality Calc 250.7 mOsm/kg 7:04 AM EDT [facility] Blood Venipuncture / Unknown 05/25/2024 6:09 AM EDT 05/25/2024 6:37 AM EDT us Ac Wilks MD LAB BLOOD ORDERABLES Final R esult Performing Organization Address City/State/[facility] Co de Phone Number [facility] [address] [phone] * (ABNORMAL) CBC with automated diff (05/25/2024 6:09 AM EDT) WBC 6.7 4.0 - 10.0 K/ L 05/25/2024 6:40 AM EDT [facility] RBC 3.57(L) 3.93 - 5.22 M/ L 05/25/2024 6:40 AM EDT [facility] Hemoglobin 10.3(L) 11.2 - 15.7 GM/DL 05/25/2024 6:40 AM EDT [facility] Hematocrit 30.2(L) 34.1 - 44.9 % 05/25/2024 6:40 AM EDT [facility] MCV 85 79 - 95 fL 05/25/2024 6:40 AM EDT [facility] MCH 28.9 25.6 - 32.2 pg 05/25/2024 6:40 AM EDT [facility] MCHC 34.1 32.2 - 35.5 GM/DL 05/25/2024 6:40 AM EDT [facility] RDW 14.0 11.7 - 14.4 % 05/25/2024 6:40 AM EDT [facility] Platelets 212 140 - 375 K/CU MM 05/25/2024 6:40 AM EDT [facility] MPV 9.3(L) 9.4 - 12.3 fL 05/25/2024 6:40 AM EDT [facility] % Neutros 60 34 - 71 % 05/25/2024 6:40 AM EDT [facility] % Lymphs 26 19 - 52 % 05/25/2024 6:40 AM EDT [facility] % Monos 7 5 - 13 % 05/25/2024 6:40 AM EDT [facility] % Eos 6 1 - 6 % 05/25/2024 6:40 AM EDT [facility] % Baso 1 0 - 1 % 05/25/2024 6:40 AM EDT [facility] NRBC Absolute <0.01 0 - 0.012 K/ul 05/25/2024 6:40 AM EDT [facility] # Neutros 4.03 1.56 - 6.13 K/ L 05/25/2024 6:40 AM EDT [facility] # Lymphs 1.72 1.18 - 3.74 K/ L 05/25/2024 6:40 AM EDT [facility] # Monos 0.45 0.24 - 0.86 K/ L 05/25/2024 6:40 AM EDT [facility] # Eos 0.43(H) 0.04 - 0.36 K/ L 05/25/2024 6:40 AM EDT [facility] # Baso 0.04 0.01 - 0.08 K/ L 05/25/2024 6:40 AM EDT [facility] Immature Granulocytes-Re lative 0.30 0.01 - 0.43 % 05/25/2024 6:40 AM EDT [facility] # IG <0.03 0.00 - 0.03 K/uL 05/25/2024 6:40 AM EDT [facility] Blood Venipuncture / Unknown 05/25/2024 6:09 AM EDT 05/25/2024 6:37 AM EDT [facility] - 05/25/2024 6:40 AM EDT When [...] MD LAB BLOOD ORDERABLES Final R esult [facility] [address] [phone] * Glucose, Nova Meter (05/25/2024 6:06 AM EDT) [facility] POC-GLUCOSE 102 70 - 110 mg/dL 05/25/2024 6:07 AM EDT [facility] Comment: In the event of poor peripheral blood flow, venous or arterial blood should be used due to the potential of erroneous results. Notified Nurse RBV Bond Underwriter [id number] 05/25/2024 6:07 AM EDT [facility] Blood WHOLE BLOOD / Unknown 05/25/2024 6:06 AM EDT 05/25/2024 6:06 AM EDT [facility] - 05/25/2024 6:07 AM EDT Bond Underwriter ID is - [id number] us Ac Wilks MD POINT OF CARE TEST ORDERABLE S Final Result [facility] [address] [phone] * Phosphorus (05/25/2024 1:24 AM EDT) Phosphorus 3.6 2.5 - 4.5 mg/dL 05/25/2024 1:55 AM EDT [facility] Blood Venipuncture / Unknown 05/25/2024 1:24 AM EDT 05/25/2024 1:33 AM EDT us Ac Wilks MD LAB BLOOD ORDERABLES Final R esult Performing Organization Address [facility] Co de Phone Number [facility] [address] [phone] * (ABNORMAL) Hemoglobin and hematocrit (05/25/2024 1:24 AM EDT) Hemoglobin 9.7(L) 11.2 - 15.7 GM/DL 05/25/2024 1:39 AM EDT [facility] Hematocrit 28.6(L) 34.1 - 44.9 % 05/25/2024 1:39 AM EDT [facility] Blood Venipuncture / Unknown 05/25/2024 1:24 AM EDT 05/25/2024 1:33 AM EDT us Aristides Pickering PA-C LAB BLOOD ORDERABLES Final Result Performing Organization Address City/[facility]/ZIP Co de Phone Number [facility] [address] [phone] * Transfuse RBC (05/25/2024 12:08 AM EDT) us Ac Wilks MD FS_MODEL_IP_BLOOD TRANSFUSIO N ORDERABLES Final Result * Transfuse RBC: 2 Units (05/25/2024 12:08 AM EDT) us Ac Wilks MD FS_MODEL_IP_BLOOD TRANSFUSIO N ORDERABLES Edited Result - Final * Glucose, Nova Meter (05/25/2024 12:01 AM EDT) POC-GLUCOSE 101 70 - 110 mg/dL 05/25/2024 12:02 AM EDT [facility] Comment: In the event of poor peripheral blood flow, venous or arterial blood should be used due to the potential of erroneous results. Notified Nurse RBV Bond Underwriter [id number] 05/25/2024 12:02 AM EDT [facility] Blood WHOLE BLOOD / Unknown 05/25/2024 12:01 AM EDT 05/25/2024 12:02 AM EDT Narrative [facility] - 05/25/2024 12:02 AM EDT Bond Underwriter ID is - [id number] Ac Wilks MD POINT OF CARE TEST ORDERABLE S Final Result Performing Organization Address City/State/[facility] Co de Phone Number [facility] [address] [phone] * Transfuse RBC (05/24/2024 9:36 PM EDT) Ac Wilks MD FS_MODEL_IP_BLOOD TRANSFUSIO N ORDERABLES [...] and dictated by Dr. John Edouard MD us Ac Wilks MD IMG CT ORDERABLES Final Resu lt * Glucose, Nova Meter (05/24/2024 4:35 PM EDT) POC-GLUCOSE 98 70 - 110 mg/dL 05/24/2024 4:37 PM EDT [facility] Comment: In the event of poor peripheral blood flow, venous or arterial blood should be used due to the potential of erroneous results. Notified Nurse RBV Bond Underwriter [id number] 05/24/2024 4:37 PM EDT [facility] Blood WHOLE BLOOD / Unknown 05/24/2024 4:35 PM EDT 05/24/2024 4:37 PM EDT Narrative [facility] - 05/24/2024 4:37 PM EDT Bond Underwriter ID is - [id number] Ac Wilks MD POINT OF CARE TEST ORDERABLE S Final Result [address] [phone] * Prepare RBC: 2 Units (05/24/2024 3:21 PM EDT) [facility] Issue Date/Time [id number] [facility] (ID) Product Identification Red Blood Cells [facility] (ID) Product Code [id number] [facility] (ID) Status Information Transfused [facility] (ID) Unit Number [id number] [facility] ([facility]) Blood Type 5100 [facility] (ID) Cross Match Results Compatible [facility] (ID) us Ac Wilks MD FS_MODEL_IP_BLOOD BANK PRODU CT ORDERABLES Final Result [facility] B[facility] (ID) [address] [place] [address], [facility] [phone] * (ABNORMAL) Basic Metabolic Panel (05/24/2024 1:18 PM EDT) [facility] Sodium 125(L) 136 - 145 meq/L 05/24/2024 1:52 PM EDT [facility] Potassium 4.5 3.4 - 5.1 meq/L 05/24/2024 1:52 PM EDT [facility] CO2 23 22 - 29 meq/L 05/24/2024 1:52 PM EDT [facility] Chloride 97(L) 98 - 112 meq/L 05/24/2024 1:52 PM EDT [facility] Glucose 92 74 - 100 mg/dL 05/24/2024 1:52 PM EDT [facility] BUN 4.6(L) 7.0 - 18.7 mg/dL 05/24/2024 1:52 PM EDT [facility] Creatinine 0.72 0.57 - 1.11 mg/dL 05/24/2024 1:52 PM EDT [facility] BUN/Creatinine 6(L) 8 - 20 05/24/2024 1:52 PM EDT [facility] Calcium 8.1(L) 8.4 - 10.2 mg/dL 05/24/2024 1:52 PM EDT [facility] Anion Gap 10 4 - 12 05/24/2024 1:52 PM EDT [facility] eGFR (mL/min/1.73m2) 105 >=60 mL/min/1.7 3m2 05/24/2024 1:52 PM EDT [facility] Osmolality Calc 248.3 mOsm/kg 1:52 PM EDT [facility] Blood Venipuncture / Unknown 05/24/2024 1:18 PM EDT 05/24/2024 1:24 PM EDT us Ac Wilks MD LAB BLOOD ORDERABLES Final R esult [facility] [address] [phone] * (ABNORMAL) CBC - Hemogram (05/24/2024 1:18 PM EDT) WBC 8.7 4.0 - 10.0 K/ L 05/24/2024 1:28 PM EDT [facility] RBC 2.98(L) 3.93 - 5.22 M/ L 05/24/2024 1:28 PM EDT [facility] Hemoglobin 8.8(L) 11.2 - 15.7 GM/DL 05/24/2024 1:28 PM EDT [facility] Hematocrit 25.6(L) 34.1 - 44.9 % 05/24/2024 1:28 PM EDT [facility] MCV 86 79 - 95 fL 05/24/2024 1:28 PM EDT [facility] MCH 29.5 25.6 - 32.2 pg 05/24/2024 1:28 PM EDT [facility] MCHC 34.4 32.2 - 35.5 GM/DL 05/24/2024 1:28 PM EDT [facility] RDW 12.0 11.7 - 14.4 % 05/24/2024 1:28 PM EDT [facility] Platelets 240 140 - 375 K/CU MM 05/24/2024 1:28 PM EDT [facility] MPV 9.1(L) 9.4 - 12.3 fL 05/24/2024 1:28 PM EDT [facility] Blood Venipuncture / Unknown 05/24/2024 1:18 PM EDT 05/24/2024 1:24 PM EDT us Ac Wilks MD LAB BLOOD ORDERABLES Final R esult [facility] [address] [phone] * (ABNORMAL) Glucose, Nova Meter (05/24/2024 10:18 AM EDT) POC-GLUCOSE 127(H) 70 - 110 mg/dL 05/24/2024 10:20 AM EDT [facility] Comment: In the event of poor peripheral blood flow, venous or arterial blood should be used due to the potential of erroneous results. Notified Nurse RBV Bond Underwriter [id number] 05/24/2024 10:20 AM EDT [facility] Blood WHOLE BLOOD / Unknown 05/24/2024 10:18 AM EDT 05/24/2024 10:20 AM EDT Narrative [facility] - 05/24/2024 10:20 AM EDT Bond Underwriter ID is - [id number] us Ac Wilks MD POINT OF CARE TEST ORDERABLE S Final Result Performing Organization Address [facility] de Phone Number [facility] [address] [phone] * (ABNORMAL) Glucose, Nova Meter (05/24/2024 5:53 AM EDT) POC-GLUCOSE 151(H) 70 - 110 mg/dL 05/24/2024 5:54 AM EDT [facility] Comment: In the event of poor peripheral blood flow, venous or arterial blood should be used due to the potential of erroneous results. Notified Nurse RBV Bond Underwriter [id number] 05/24/2024 5:54 AM EDT [facility] Blood WHOLE BLOOD / Unknown 05/24/2024 5:53 AM EDT 05/24/2024 5:54 AM EDT Narrative [facility] - 05/24/2024 5:54 AM EDT Bond Underwriter ID is - [id number] us Carey Monroy PA-C POINT OF CARE TEST ORDERABLES Final Result Performing Organization Address [facility] de Phone Number [facility] [address] [phone] * XR chest AP portable (05/24/2024 1:21 [...] ATRIAL RATE (MCT) 63 BPM GE MUSE [place] Interval 186 ms GE MUSE QRS-INTERVAL (MSEC) 92 ms GE MUSE QT Interval 444 ms GE MUSE QTC Interval 454 ms GE MUSE P [place] 15 degrees GE MUSE R AXIS (MCT) 45 degrees GE MUSE T Wave [place] 35 degrees GE MUSE [place] Diagnosis Normal sinus rhythm Low voltage QRS Borderline ECG Confirmed by Liang Luna ([id number]) on 05/24/2024 1:34:15 PM GE MUSE 05/24/2024 12:5 8 AM EDT 05/24/2024 1:34 PM EDT Aristides Pickering PA-C ECG ORDERABLES Final Resu lt GE MUSE * High Sensitivity Troponin I (05/24/2024 12:54 AM EDT) Troponin I High Sensitivity (pg/mL) <5.0 <=14 pg/mL 05/24/2024 2:15 AM EDT [facility] Blood Venipuncture / Unknown 05/24/2024 12:54 AM EDT 05/24/2024 1:44 AM EDT Narrative [facility] - 05/24/2024 2:15 AM EDT Applicable to [facility] only. Effective April 30 the lab will begin using a new chemistry analyzer. HsTroponin methodology, reference ranges and critical values have changed. Aristides Pickering PA-C LAB BLOOD ORDERABLES Final Result [facility] [address] [phone] * (ABNORMAL) CBC - Hemogram (SJ-BKR) (05/24/2024 12:54 AM EDT) WBC 11.1(H) 4.0 - 10.0 K/ L 05/24/2024 1:05 AM EDT [facility] RBC 3.49(L) 3.93 - 5.22 M/ L 05/24/2024 1:05 AM EDT [facility] Hemoglobin 10.4(L) 11.2 - 15.7 GM/DL 05/24/2024 1:05 AM EDT [facility] Hematocrit 30.1(L) 34.1 - 44.9 % 05/24/2024 1:05 AM EDT [facility] MCV 86 79 - 95 fL 05/24/2024 1:05 AM EDT [facility] MCH 29.8 25.6 - 32.2 pg 05/24/2024 1:05 AM EDT [facility] MCHC 34.6 32.2 - 35.5 GM/DL 05/24/2024 1:05 AM EDT [facility] RDW 12.3 11.7 - 14.4 % 05/24/2024 1:05 AM EDT [facility] Platelets 267 140 - 375 K/CU MM 05/24/2024 1:05 AM EDT [facility] MPV 9.2(L) 9.4 - 12.3 fL 05/24/2024 1:05 AM EDT [facility] Blood Venipuncture / Unknown 05/24/2024 12:54 AM EDT 05/24/2024 1:04 AM EDT us Heath Robledo MD LAB BLOOD ORDERABLES Final Resul t [facility] [address] [phone] * (ABNORMAL) Basic Metabolic Panel (05/24/2024 12:54 AM EDT) Sodium 126(L) 136 - 145 meq/L 05/24/2024 1:40 AM EDT [facility] Potassium 4.0 3.4 - 5.1 meq/L 05/24/2024 1:40 AM EDT [facility] CO2 22 22 - 29 meq/L 05/24/2024 1:40 AM EDT [facility] Chloride 95(L) 98 - 112 meq/L 05/24/2024 1:40 AM EDT [facility] Glucose 136(H) 74 - 100 mg/dL 05/24/2024 1:40 AM EDT [facility] BUN 6.4(L) 7.0 - 18.7 mg/dL 05/24/2024 1:40 AM EDT [facility] Creatinine 0.80 0.57 - 1.11 mg/dL 05/24/2024 1:40 AM EDT [facility] BUN/Creatinine 8 8 - 20 05/24/2024 1:40 AM EDT [facility] Calcium 8.3(L) 8.4 - 10.2 mg/dL 05/24/2024 1:40 AM EDT [facility] Anion Gap 13(H) 4 - 12 05/24/2024 1:40 AM EDT [facility] eGFR (mL/min/1.73m2) 93 >=60 mL/min/1.7 3m2 05/24/2024 1:40 AM EDT [facility] Osmolality Calc 253.2 mOsm/kg 1:40 AM EDT [facility] Blood Venipuncture / Unknown 05/24/2024 12:54 AM EDT 05/24/2024 1:04 AM EDT us Heath Robledo MD LAB BLOOD ORDERABLES Final Resul t [facility] [address] [phone] * (ABNORMAL) Glucose, Nova Meter (05/23/2024 7:44 PM EDT) POC-GLUCOSE 113(H) 70 - 110 mg/dL 05/23/2024 7:44 PM EDT [facility] Comment: In the event of poor peripheral blood flow, venous or arterial blood should be used due to the potential of erroneous results. Notified Nurse RBV Bond Underwriter [id number] 05/23/2024 7:44 PM EDT [facility] Blood WHOLE BLOOD / Unknown 05/23/2024 7:44 PM EDT 05/23/2024 7:44 PM EDT [facility] - 05/23/2024 7:44 PM EDT Bond Underwriter ID is - [id number] Carey Monroy PA-C POINT OF CARE TEST ORDERABLES Final Result [facility] [address] [phone] * (ABNORMAL) Glucose, Nova Meter (05/23/2024 3:49 PM EDT) POC-GLUCOSE 127(H) 70 - 110 mg/dL 05/23/2024 3:55 PM EDT [facility] Comment: In the event of poor peripheral blood flow, venous or arterial blood should be used due to the potential of erroneous results. Notified Nurse RBV Bond Underwriter [id number] 05/23/2024 3:55 PM EDT [facility] Blood WHOLE BLOOD / Unknown 05/23/2024 3:49 PM EDT 05/23/2024 3:55 PM EDT Narrative [facility] - 05/23/2024 3:55 PM EDT Bond Underwriter ID is - [id number] Carey Monroy PA-C POINT OF CARE TEST ORDERABLES Final Result Performing Organization Address [facility]/ZIP Co de Phone Number [facility] [address] [phone] * Glucose, Nova Meter (05/23/2024 10:59 AM EDT) [facility] POC-GLUCOSE 100 70 - 110 mg/dL 05/23/2024 11:03 AM EDT [facility] Comment: In the event of poor peripheral blood flow, venous or arterial blood should be used due to the potential of erroneous results. Notified Nurse RBV Bond Underwriter [id number] 05/23/2024 11:03 AM EDT [facility] Blood WHOLE BLOOD / Unknown 05/23/2024 10:59 AM EDT 05/23/2024 11:03 AM EDT Narrative [facility] - 05/23/2024 11:03 AM EDT Bond Underwriter ID is - [id number] Carey Monroy PA-C POINT OF CARE TEST ORDERABLES Final Result Performing Organization Address [facility] Co de Phone Number [facility] [address] [phone] * (ABNORMAL) CBC (Hemogram only) (05/23/2024 8:32 AM EDT) [facility] WBC 12.7(H) 4.0 - 10.0 K/ L 05/23/2024 9:19 AM EDT [facility] RBC 3.76(L) 3.93 - 5.22 M/ L 05/23/2024 9:19 AM EDT [facility] Hemoglobin 11.0(L) 11.2 - 15.7 GM/DL 05/23/2024 9:19 AM EDT [facility] Hematocrit 32.2(L) 34.1 - 44.9 % 05/23/2024 9:19 AM EDT [facility] MCV 86 79 - 95 fL 05/23/2024 9:19 AM EDT [facility] MCH 29.3 25.6 - 32.2 pg 05/23/2024 9:19 AM EDT [facility] MCHC 34.2 32.2 - 35.5 GM/DL 05/23/2024 9:19 AM EDT [facility] RDW 12.0 11.7 - 14.4 % 05/23/2024 9:19 AM EDT [facility] Platelets 298 140 - 375 K/CU MM 05/23/2024 9:19 AM EDT [facility] MPV 9.2(L) 9.4 - 12.3 fL 05/23/2024 9:19 AM EDT [facility] Blood Venipuncture / Unknown 05/23/2024 8:32 AM EDT 05/23/2024 9:01 AM EDT us Heath Robledo MD LAB BLOOD ORDERABLES Final Resul t Performing Organization Address City/[facility]/ZIP Co de Phone Number [facility] [address] [phone] * Magnesium (05/23/2024 8:31 AM EDT) Magnesium 2.2 1.6 - 2.6 mg/dL 05/23/2024 9:32 AM EDT [facility] Blood Venipuncture / Unknown 05/23/2024 8:31 AM EDT 05/23/2024 9:04 AM EDT us Aristides Pickering PA-C LAB BLOOD ORDERABLES Final Result [facility] [address] [phone] * CALCIUM Ionized (05/23/2024 8:31 AM EDT) Calcium Ionized 1.17 1.12 - 1.32 mmol/L 05/23/2024 9:12 AM EDT [facility] Blood Venipuncture / Unknown 05/23/2024 8:31 AM EDT 05/23/2024 9:06 AM EDT Aristides Pickering PA-C LAB BLOOD ORDERABLES Final Result [facility] [address] [phone] * (ABNORMAL) Basic Metabolic Panel (05/23/2024 8:31 AM EDT) Sodium 129(L) 136 - 145 meq/L 05/23/2024 9:32 AM EDT [facility] Potassium 4.5 3.4 - 5.1 meq/L 05/23/2024 9:32 AM EDT [facility] CO2 23 22 - 29 meq/L 05/23/2024 9:32 AM EDT [facility] Chloride 100 98 - 112 meq/L 05/23/2024 9:32 AM EDT [facility] Glucose 110(H) 74 - 100 mg/dL 05/23/2024 9:32 AM EDT [facility] BUN 4.4(L) 7.0 - 18.7 mg/dL 05/23/2024 9:32 AM EDT [facility] Creatinine 0.72 0.57 - 1.11 mg/dL 05/23/2024 9:32 AM EDT [facility] BUN/Creatinine 6(L) 8 - 20 05/23/2024 9:32 AM EDT [facility] Calcium 8.2(L) 8.4 - 10.2 mg/dL 05/23/2024 9:32 AM EDT [facility] Anion Gap 11 4 - 12 05/23/2024 9:32 AM EDT [facility] eGFR (mL/min/1.73m2) 105 >=60 mL/min/1.7 3m2 05/23/2024 9:32 AM EDT [facility] Osmolality Calc 256.6 mOsm/kg 9:32 AM EDT [facility] Blood Venipuncture / Unknown 05/23/2024 8:31 AM EDT 05/23/2024 9:04 AM EDT us Heath Robledo MD LAB BLOOD ORDERABLES Final Resul t [facility] [address] [phone] * (ABNORMAL) Glucose, Nova Meter (05/23/2024 5:18 AM EDT) POC-GLUCOSE 146(H) 70 - 110 mg/dL 05/23/2024 5:19 AM EDT [facility] Comment: In the event of poor peripheral blood flow, venous or arterial blood should be used due to the potential of erroneous results. Notified Nurse RBV Bond Underwriter [id number] 05/23/2024 5:19 AM EDT [facility] Blood WHOLE BLOOD / Unknown 05/23/2024 5:18 AM EDT 05/23/2024 5:19 AM EDT [facility] - 05/23/2024 5:19 AM EDT Bond Underwriter ID is - [id number] Aristides Pickering PA-C POINT OF CARE TEST ORDERAB LES Final Result [facility] [address] [phone] * (ABNORMAL) Glucose, Nova Meter (05/23/2024 12:40 AM EDT) POC-GLUCOSE 176(H) 70 - 110 mg/dL 05/23/2024 12:44 AM EDT [facility] Comment: In the event of poor peripheral blood flow, venous or arterial blood should be used due to the potential of erroneous results. Protocols Followed Bond Underwriter [id number] 05/23/2024 12:44 AM EDT [facility] Blood WHOLE BLOOD / Unknown 05/23/2024 12:40 AM EDT 05/23/2024 12:44 AM EDT [facility] - 05/23/2024 12:44 AM EDT Bond Underwriter ID is - [id number] Aristides Pickering PA-C POINT OF CARE TEST ORDERAB LES Final Result [facility] [address] [place] [address], [facility] [phone] * Tissue Exam (05/22/2024 4:05 PM EDT) AP RESULT See Note: [facility] Comment: [facility] [address] [place] [address] or [phone] Jose Morgan M.D., Woodyard Operator PATIENT NAME LABORATORY NO. [id number] DEMETRA DIAZ [id number] AGE SEX SSN CLIENT REF # [facility] 44 1980 F [id number] 1 [facility] REQUESTING William [place] [address] HEATH ROBLEDO DATE COLLECTED DATE RECEIVED DATE [...] details. Professional interpretation rendered by Yaya Patrick M.D.,F.C.A.P. at [facility], [facility], [address] [place] [address]. GROSS DESCRIPTION: Specimen received in formalin labeled [...] other discrete mass lesions are grossly identified. Custodial Operations Manager sections are submitted in 2 cassettes with sections including possible skin in A1. JTM/RLL REVIEWED, DIAGNOSED AND ELECTRONICALLY SIGNED BY: Yaya Patrick M.D.,F.C.A.P. CPT CODES: 92263 Tissue COLON STRUCTURE / Unknown 05/22/2024 4:05 PM EDT Heath Robledo MD PATHOLOGY/CYTOLOGY ORDERABLES Fi nal Result [facility] [address] * Type and Screen (05/22/2024 11:43 AM EDT) ABO/Rh O Positive 05/22/2024 11:29 AM EDT [facility] BLOOD [facility] (ID) Antibody Screen Negative 05/22/2024 11:[address] [facility] (ID) HISTCHK HIST CHECK PERFORMED 05/22/2024 11:[address] [facility] (ID) Blood Venipuncture / Unknown 05/22/2024 11:43 AM EDT 05/22/2024 11:55 AM EDT Heath Robledo MD [facility] BLOOD BANK TEST ORDERABLES F inal Result Performing Organization Address [facility] Co de Phone Number [facility] (ID) [address] [phone] * EKG-SCANNED (05/22/2024) Narrative 05/22/2024 Ordered by an unspecified provider. Default Scanning Provider SCAN ORDERS Final Result documented in this encounter Visit Diagnoses Diagnosis Abnormal defecation Abnormal defecation documented in this encounter Admitting Diagnoses Diagnosis [...] 05/23/2024 12:26 PM EDT 100 mg dextrose 50% (D50W) injection 25 g 25 [...] Do not wait on lab to treat famotidine (PEPCID) tablet 40 mg 40 mg Every Night, oral, First dose on Mon05/22/24 at 2230, Pharmacist to renally dose if CrCl is less than 50 mL/min or on CRRT. Given 05/24/2024 8:31 PM EDT 40 m g Given 05/23/2024 8:16 PM EDT 40 mg gabapentin (NEURONTIN) capsule 300 mg 300 mg [...] mg/dL heparin injection 5,000 Units 5,000 Units Every [...] Blood Sugar is less than 180 beteween [id number], DO NOT give corrective insulin unless otherwise [...] Given 05/24/2024 8:33 PM EDT 15 mg lamoTRIgine (LaMICtal) tablet 150 mg 150 mg [...] Given 05/24/2024 5:37 AM EDT 125 mcg metoprolol succinate (TOPROL-XL) 24 hr tablet 50 [...] Given 05/23/2024 8:52 AM EDT 50 mg mirabegron (MYRBETRIQ) 24 hr tablet 50 [...] Given 05/23/2024 9:24 PM EDT 6 mg simethicone (MYLICON) chewable tablet 80 mg 80 mg Every 6 hours PRN, oral, gas pain, flatulence, Starting on Mon05/24/24 at 0057 Given 05/24/2024 9:52 AM EDT 80 mg Given 05/24/2024 1:06 AM EDT 80 mg sodium chloride 0.9 % infusion 100 mL/hr Continuous, intravenous, Starting on Mon05/24/24 at 1300 New Bag 05/24/2024 1:25 PM EDT 100 mL/hr 100 mL/hr documented in this encounter Active and [...] Patient/family refused)1500 (Given - Provider: Fahad Escalona RN)2016 (Given - Provider: Alecia Rios RN) 223 (Given - Provider: Alecia Rios RN)0931 (Given - Provider: Buster Constantino RN)1555 (Given - Provider: Buster Constantino RN)2029 (Given - Provider: Alecia Rios RN) 022 (Not Given - Provider: Alecia Rios RN - Reason: Other (with Comment) - Comment: Daily Tylenol max met)1036 (Not Given - Provider: Fahad Escalona RN - Reason: Medication/ Dose Unavailable)1500 (Due - Provider: Renetta Whelan [facility]) ALPRAZolam (XANAX) tablet 1 mg 1 mg 2 times daily, oral, First dose on Mon05/22/24 at 2230 0852 (Given - Provider: Fahad Escalona RN)2016 (Given - Provider: Alecia Rios RN) 0932 (Given - Provider: Buster Constantino RN)203 (Given - Provider: Alecia Rios RN) 0918 (Given - Provider: Fahad Escalona RN) alvimopan [...] RN)2015 (Given - Provider: Alecia Rios RN) 09 (Given - Provider: Buster Constantino RN)2031 (Given - Provider: Alecia Rios RN) 0917 (Given - Provider: Fahad Escalona RN) ARIPiprazole [...] manually unheld 0852 (Given - Provider: Fahad Escalona, RAYSA)2016 (Given - Provider: Alecia Rios RN) 0941 [...] split. 1230 (Given - Provider: Buster Constantino RN)2124 (Given - Provider: Alecia Rios RN) 0934 (Given - Provider: Buster Constantino RN)215 (Not Given - Provider: Alecia Rios RN - Reason: Patient/family refused) 0944 (Given - Provider: Fahad Escalona RN) insulin lispro (HUMALOG, ADMELOG) injection 0-18 Units 0-18 Units 4 times daily (before meals and nightly), subcutaneous, First dose on Mee 05/23/24 at 0730, If Blood Sugar is less than 180 beteween [id number], DO NOT give corrective insulin unless otherwise [...] Escalona RN - Reason: Order parameters not met)1703 (Not Given - Provider: Fahad Escalona RN - Reason: Order parameters not met)2036 (Not Given - Provider: Alecia Rios RN [...] 30 mg Daily, oral, First dose on Mee 05/23/24 at 0900, DO NOT CRUSH THIS DOSAGE [...] RN)2016 (Given - Provider: Alecia Rios RN) 223 (Given - Provider: Alecia Rios RN)0951 (Given - Provider: Fahad Escalona RN)1558 (Not Given - Provider: Buster Constantino RN - Reason: Patient/family refused)2032 (Given - Provider: Alecia Rios RN) 022 (Given - Provider: Alecia Rios RN)0917 (Given - Provider: Fahad Escalona RN)1500 (Due - Provider: Renetta Whelan [facility]) lamoTRIgine (LaMICtal) tablet 150 mg 150 mg 2 times daily, oral, First dose on Mon05/22/24 at 2230 0852 (Given - Provider: Fahda Escalona RN)2016 (Given - Provider: Alecia Rios [...] enteric feeding. 0952 (Given - Provider: Fahad Escalona RN)2031 (Given - Provider: Alecia Rios RN) 0918 (Given - Provider: Fahad Escalona RN) prazosin (MINIPRESS) capsule 6 mg 6 mg Every Night, oral, First dose (after last reorder) on Mon05/22/24 at 2300 2123 (Given - Provider: Alecia Rios, RAYSA) 2203 (Given - Provider: Alecia Rios RN) sodium chloride 0.9 % infusion (COMPLETED)(Linked Group 2) 20 mL/hr Once, intravenous, On Mon05/24/24 at 1600, For 1 dose, Used to prep and flush blood tubing before and in between units of blood. 1919 (New Bag - Provider: Fahad Escalona RN) sodium chloride 0.9% (NS) bolus (COMPLETED) 500 mL Once, intravenous, Administer over 30 Minutes, On 05/25/24 at 0930, For 1 dose 0959 (New Bag - Provider: Fahad Escalona, RAYSA) Continuous Medication Order 05/23/2024 05/24/2024 05/25/2024 dextrose 5 % and sodium chloride 0.45 % with KCl 20 mEq/L infusion (premix) (CANCELED) 75 mL/hr Continuous, intravenous, Starting on Mon05/22/24 at 1930, Phase II/On Unit 0349 (New Bag - Provider: Kylee Martinez, RN)0643 (Rate/Dose Change - Provider: Kylee Martinez RN)1821 (New Bag - Provider: Fahad Escalona RN) sodium chloride 0.9 % infusion 100 mL/hr Continuous, intravenous, Starting on Mon05/24/24 at 1300 1325 (New Bag - Provider: Fahad Escalona RN) PRN Medication Order 05/23/2024 05/24/2024 05/25/2024 dextrose [...] on Mon05/22/24 at 1845, Phase II/On Unit 0029 (Given - Provider: Kylee Martinez RN)1514 (Given - Provider: Fahad Escalona, RAYSA)2306 (Given - Provider: Alecia Rios RN) glucagon injection 1 mg 1 mg Every [...] hours PRN, intravenous, nausea, vomiting, Starting on 05/22/24 at 1845, Give IV if patient is unable to take orally. 1st line If inadequate response within 60 minutes, proceed to next-line agent for same PRN reason or contact provider if no further options ordered. For IV push, give over 2 - 5 minutes., Phase II/On Unit 348 (Given - Provider: Kylee Martinez RN)2038 (See Alternative - Provider: Alecia Rios RN)2154 (Given - Provider: Alecia Rios RN) 951 (Given - Provider: Fahad Escalona, RAYSA) ondansetron (ZOFRAN-ODT) disintegrating tablet 4 mg(Linked Group 3) 4 mg Every 8 hours PRN, oral, nausea, vomiting, Starting on Mon05/22/24 at 1845, 1st line. If inadequate response within 60 minutes, proceed to next-line agent for same PRN reason or contact provider if no further options ordered., Phase II/On Unit 348 (See Alternative - Provider: Kylee Martinez RN)2038 (Given - Provider: Alecia Rios RN)2154 (See Alternative - Provider: Alecia Rios RN) 09 (See Alternative - Provider: Fahad Escalona RAYSA) oxyCODONE (ROXICODONE) immediate release tablet 5 [...] Buster Constantino RN)2348 (Given - Provider: Alecia Rios, RAYSA) prochlorperazine (COMPAZINE) injection 10 mg (COMPLETED) 10 mg Once as needed, intravenous, nausea, vomiting, Starting on Mon05/23/24 at 0015, For 1 dose 0020 (Given - Provider: Kylee Martinez, RAYSA) simethicone (MYLICON) chewable tablet 80 mg 80 mg Every 6 hours PRN, oral, gas pain, flatulence, Starting on Mon05/24/24 at 0057 0106 (Given - Provider: Alecia Rios, RAYSA)0952 (Given - Provider: Fahad Escalona, RAYSA) Linked Groups Order Group 1: acetaminophen [...] Unit documented in this encounter Care Teams Bulb Tester Relationship Specialty Start Date End Date Deandra Lopez, KRISTYN PCP - General Nurse Practitioner 04/18/22 06/03/24 documented as of this encounter
--- OUTSIDE RECORDS SUMMARY | 2024-05-22 14:18 | XMS_ITS | Encounter Summary ---
Author Organization [facility] [employer] Address [address] [place] [address] Care Team Providers Care Environment Coordinator Name Role Phone Deandra Lopez APRN Primary Care Provider [phone]- [phone] Reason for Visit * Auth/Cert (Routine) Specialty Diagnoses / Procedures Referred By Contac t Referred To Contact Diagnoses Abnormal defecation Abnormal defecation Procedures CT EXPLORATORY LAPAROTOMY CELIOTOMY W/WO BIOPSY SPX LAPAROTOMY, EXPLORATORY Dennis Diaz MD [address] [place] [address] Phone: tel: fax: Referral ID Status Reason Start Date Expiration Date Visits Re quested Visits Authorized [id number] 04/16/2024 1 1 Encounter Details Date Type Department Care Team (Late st Contact Info) Description 05/22/2024 2:18 PM EDT Anesthesia Event [facility] Operating Room [address] [place] [id number] Janusz Benito MD [address] [place] [address] Mary Carmen Elkins MD [address] [place] [address] Anesthesia Record Procedure Summary Procedure Name Responsible Anesthesiologist Anesthesia Start Time Anesthesia Stop Time (EXPLORATORY LAPAROTOMY WITH CREATION OF END ILEOSTOMY) (Abdomen) Janusz Benito MD 05/22/24 1418 05/22/24 1626 Events Date Time Event Comment 05/22/2024 1239 1418 An Start Patient identif ied and chart reviewed. 1418 An Start Data Anesthesia mac pauline and monitors checked. 1419 Pre-Induction Eval FDA anest hesia machine pre-use checkout completed. Patient status reassessed prior to start of anesthesia care. 1423 An Induction 1425 An Intubation 1426 Anesthesia Ready 1435 Quick Note Surgical timeou t 1455 Quick Note Pulse ox stoppe d working. Multiple attempts made to obtain pulse ox including a new pulse ox applied to patient, a new pulse ox cable, and turning the monitor off/on. Monitor reset by removing monitor brick and plugging it back in. Pulse ox now working 1610 Intraop Handoff Handoff Perf ormed per Protocol: 1) Pt Name 2) ASA/Allergies 3) Anesthetic Type 4) Procedure/Surgeon/Anesthesiologist 5) Prior History 6) Isolation status 7) Intra-op Problems/Meds 8) Airway Description/Difficulty 9) IVs/Fluids/I&O 10) Anesthesia Concerns/Surgeon Requests 11) Pre-op Sedation/Antibiotics Administered 12) Post-op Plan/Orders 13) Questions and Concerns Addressed 1620 An Extubation 1622 an stop data 1625 Handoff to Receiving I compl eted my handoff to the receiving clinician during which we: 1. Identified the patient. 2. Identified the responsible provider. 3. Reviewed the pertinent medical history. 4. Discussed the surgical course. 5. Reviewed intra-op anesthesia management and issues during anesthesia. 6. Set expectations for post-procedure period. 7. Allowed opportunity for questions and acknowledgement of understanding. 1626 An Stop Meds Name Total fentaNYL (SUBLIMAZE) injection 100 mcg lidocaine (XYLOCAINE) injection 2% 100 m g propofol (DIPRIVAN) injection 10 mg/mL b olus 150 mg rocuronium (ZEMURON) 100 mg/10 mL inject ion 50 mg ertapenem (INVanz) 1 g in sodium chlorid e 0.9 % (NS) 50 mL JOSE IVPB 1 g magnesium sulfate injection 2 g dexmedetomidine (PRECEDEX) injection 100 mcg/mL 25 mcg ondansetron (ZOFRAN) injection 4 mg neostigmine (PROSTIGMINE) 1 mg/mL inject ion 4 mg glycopyrrolate (ROBINUL) injection 0.6 m g lactated Ringer's infusion 800 mL * Agents Name O2 N2O Air SEVOFLURANE * Blood No blood administrations on file. Lines, Drains, and Airways Type Details Placement Removal Wound 05/22/24; 1451; Inci luis; Abdomen; Not applicable 05/22/24 1451 by Sylvester Cummings RN Peripheral IV Placement Date: 05/07 07/31; Placement Time: 1141; Size: 18 G; Orientation: Distal, Posterior, Right; Location: Forearm; Site Prep: Chlorhexidine ; Insertion attempts: 1; Securement Method: Taped; Removal Date: 05/24/24; Removal Time: 0613 05/22/24 1141 by Luz Maria Faulkner RN 05/24/24 0613 by Alecia Rios RN Peripheral IV Placement Date: 05/07 07/31; Placement Time: 1146; Size: 20 G; Orientation: Anterior, Right; Location: Forearm; Site Prep: Chlorhexidine ; Insertion attempts: 1; Securement Method: Taped; Removal Date: 05/24/24 05/22/24 1146 by Luz Maria Faulkner RN 05/24/24 0000 by Alecia Rios RN ETT Placement Date 05/22; Placement Time 1425 (created via procedure documentation); Airway Size 7; Airway Cuffed Yes; Removal Date 05/22/24; Removal Time 1620 05/22/24 1425 by Kristy Lee 05/22/24 1620 by Kristy Lee Urethral Catheter Placement Date: 05/07 07/31; Placement Time: 1425; Inserted by: Bertin; Type: Non-latex; Size: 16 Fr.; Balloon Size: 5 mL; Urine Returned: Yes; Removal Date: 05/24/24 05/22/24 1425 by Sylvester Cummings RN 05/24/24 0000 by Alecia Rios RN documented in this encounter Social History Tobacco Use Types Packs/Day Years [...] Do you speak a language other than Jordanian at ho in? No 05/22/2024 Do you want help with [...] PM CDT documented as of this encounter OR Notes * Anesthesia Postprocedure Evaluation - Mari Gaines CRNA - 05/22/2024 4:25 PM EDT Patient: Demetra Diaz Procedure Summary Date: 05/22/24 Room / Location: [facility] OPERATING ROOM Anesthesia Start: 1418 Anesthesia Stop: Procedure: (EXPLORATORY LAPAROTOMY WITH CREATION OF END ILEOSTOMY) (Abdomen) Diagnosis: Abnormal defecation (Abnormal defecation) Surgeons: Dennis Diaz MD Responsible Provider: Janusz Benito MD Anesthesia Type: general ASA Status: 3 Anesthesia Type: general Vitals Value Taken Time BP 102/56 05/22/24 1625 Temp 98.8 05/22/24 1625 Pulse 55 04/16/25 1625 Resp 18 05/22/24 1625 SpO2 100 05/22/24 1625 Wt 81.1 kg (178 lb 12.8 oz) BMI 29.75 kg/m?? Anesthesia Post Evaluation Patient location during evaluation: PACU Patient participation: complete - patient participated Level of consciousness: awake Pain management: adequate Multimodal analgesia pain management approach Airway patency: patent Cardiovascular status: stable Respiratory status: face mask Hydration status: stable Color: Lenoir Activity: Moves 4 extremities Inotropes/Vasopressors: N/A No notable events documented. Mari Gaines CRNA 05/22/2024 4:25 PM EDT * Anesthesia Procedure Notes - Kristy Lee - 05/22/2024 2:38 PM EDT Associated Order(s): Intubation Intubation Authorized by: Janusz Benito MD Performed by: Kristy Lee Date/Time: 05/22/2024 2:25 PM Urgency: elective Indications and Patient Condition Indications for airway management: anesthesia and airway protection Spontaneous Ventilation: absent Sedation level: general anesthesia Preoxygenated: yes Patient position: sniffing no Mask difficulty assessment: 1 - vent by mask Planned trial extubation: yes Final Airway Details Final airway type: endotracheal airway Endotracheal tube type: ETT Cuffed: yes Successful intubation technique: direct laryngoscopy Facilitating devices/methods: intubating stylet Endotracheal tube insertion site: oral Blade: Cline Blade size: #2 ETT size (mm): 7.0 Cormack-Lehane Classification: grade I - full view of glottis Placement verified by: chest auscultation and capnometry Measured from: gums ETT to gums (cm): 21 Number of attempts at approach: 1 Number of other approaches attempted: 0 Additional Comments Atraumatic intubation. Cosigned by Deandra Raman CRNA at 05/22/2024 2:48 PM EDT * Anesthesia Procedure Notes - Mary Carmen Elkins MD - 05/22/2024 12:38 PM EDTAssociated Order(s): Peripheral Nerve Block Peripheral Nerve Block Authorized by: Mary Carmen Elkins MD Performed by: Mary Carmen Elkins MD Patient location during procedure: pre-op Start time: 05/22/2024 12:30 PM End time: 05/22/2024 12:35 PM Reason for block: at surgeon's request and post-op pain management Preanesthetic Checklist Completed: patient identified, IV checked, site marked, risks and benefits discussed, surgical consent, monitors and equipment checked, pre-op evaluation and timeout performed Peripheral Block Patient position: supine Prep: ChloraPrep Patient monitoring: heart rate, monitor tech and continuous pulse ox Block type: TAP Laterality: bilateral Injection technique: single-shot Guidance: ultrasound guided Local infiltration: lidocaine Needle Needle type: short-bevel Needle gauge: 20 G Needle length: 10 cm Needle localization: ultrasound guidance Test dose: negative Assessment Injection assessment: negative aspiration for heme, no paresthesia on injection, incremental injection and local visualized surrounding nerve on ultrasound Paresthesia pain: none Heart rate change: no Slow fractionated injection: yes Additional Notes Total 30ml TAP solution injected incrementally each side. * Anesthesia Preprocedure Evaluation - Betina Rubio MD - 05/15/2024 9:42 AM EDT Anesthesia Pre Evaluation Ms. Demetra Diaz is a 44 y.o. female being evaluated for the following: Date/Time: 05/22/24 1328 Procedure: (EXPLORATORY LAPAROTOMY WITH CREATION OF END ILEOSTOMY) Location: [facility] OR [address] [place] [address] OPERATING ROOM Surgeons: Dennis Diaz MD Allergies Allergen Reactions Paroxetine Hives, Itching, Nausea Only, Palpitations and Shortness Of Breath Other Reaction(s): Dizziness, Headache, Not available Steroids Hives Wellbutrin [Bupropion Hcl] Hives Diclofenac Other (See Comments) Unknown Hydroxyzine Rash Prednisone Rash Pseudoephedrine Palpitations Sumatriptan Palpitations Tape, Permeable Adhesive Rash Relevant Problems ANESTHESIA (+) BETTY (obstructive sleep apnea) CARDIOVASCULAR (+) HTN (hypertension) ENDOCRINE (+) Hypothyroidism GASTROINTESTINAL (+) GERD (gastroesophageal reflux disease) NEURO/PSYCH (+) Anxiety (+) Depression (+) Migraines (+) PTSD (post-traumatic stress disorder) RESPIRATORY SYSTEM (+) WIGGINS (dyspnea on exertion) Clinical information reviewed: NPO Status No data recorded Physical Exam Airway Mallampati: III TM distance: >3 FB Neck ROM: full Cardiovascular - normal exam Dental (+) upper dentures, lower dentures Pulmonary - normal exam Abdominal (+) obese \ Date of Service: 09/26/2023 Blood 110/61 mmHg Pressure: Type of Study: TTE procedure: ECHO COMPLETE (DOPPLER / COLOR) W OR WO CONTRAST. HR: 79 bpmRhythm: Regular Patient Status: Routine OP Study Location: Echo LabTechnical Quality: Adequate visualization Indications:Pericardial effusion. Impression: Mitral valve annulus calcification. Trace to mild mitral regurgitation. Moderate tricuspid regurgitation. Normal sized left ventricle. Normal left ventricular wall thickness. Visually estimated ejection fraction 70% +/- 5%. No evidence of dissection. Normal IVC with appropriate collapse. No pericardial effusion. Anesthesia Plan ASA 3 Planned anesthetic: general (TAPs ) Anesthesia Plan Factors- The patient is not a current smoker. Patient was not previously instructed to abstain from smoking on day of procedure. Patient did not smoke on day of procedure. Induction: intravenous Informed Consent- Anesthetic plan and risks discussed with patient. documented in this encounter Plan of Treatment Upcoming Encounters Date Type Department Care Team (Late st Contact Info) Description 07/17/2024 11:00 AM EDT Appointment [facility] Wound & Ostomy Therapy [address] [place] [id number] 08/28/2024 9:15 AM EDT Office Visit [facility] Urology - [address] [place] [address] Chandrika Santana, ELECTROCARDIOGRAPHIC TECHNICIAN [address] [place] [address] 04/17/2025 8:30 AM EDT Office Visit [facility] Cardiology - [place] [address] [place] [address] Tamara Sow PA-C [address] [place] [address] documented as of this encounter Procedures Procedure Name Priority Date/Time Associated Diagnosis Comments ANESTHESIA INTUBATION Routine 05/22/2024 2:25 PM EDT HC TAP BLOCK BILATERAL (BLK RM) Routine 05/22/2024 12:30 PM EDT documented in this encounter Results * AN SINGLE LUMEN INTUBATION (05/22/2024 2:25 PM EDT) Narrative Deandra Raman CRNA - 05/22/2024 2:25 PM EDT Kristy Lee 05/22/2024 2:39 PM Intubation Authorized by: Janusz Benito MD Performed by: Kristy Lee Date/Time: 05/22/2024 2:25 PM Urgency: elective Indications and Patient Condition Indications for airway management: anesthesia and airway protection Spontaneous Ventilation: absent Sedation level: general anesthesia Preoxygenated: yes Patient position: sniffing no Mask difficulty assessment: 1 - vent by mask Planned trial extubation: yes Final Airway Details Final airway type: endotracheal airway Endotracheal tube type: ETT Cuffed: yes Successful intubation technique: direct laryngoscopy Facilitating devices/methods: intubating stylet Endotracheal tube insertion site: oral Blade: Cline Blade size: #2 ETT size (mm): 7.0 Cormack-Lehane Classification: grade I - full view of glottis Placement verified by: chest auscultation and capnometry Measured from: gums ETT to gums (cm): 21 Number of attempts at approach: 1 Number of other approaches attempted: 0 Additional Comments Atraumatic intubation. us Janusz Benito MD ANESTHESIA ORDERABLES Dominga l Result * HC TAP BLOCK BILATERAL (BLK RM) (05/22/2024 12:30 PM EDT) Narrative Mary Carmen Elkins MD - 05/22/2024 12:30 PM EDT Mary Carmen Elkins MD 05/22/2024 12:39 PM Peripheral Nerve Block Authorized by: Mary Carmen Elkins MD Performed by: Mary Carmen Elkins MD Patient location during procedure: pre-op Start time: 05/22/2024 12:30 PM End time: 05/22/2024 12:35 PM Reason for block: at surgeon's request and post-op pain management Preanesthetic Checklist Completed: patient identified, IV checked, site marked, risks and benefits discussed, surgical consent, monitors and equipment checked, pre-op evaluation and timeout performed Peripheral Block Patient position: supine Prep: ChloraPrep Patient monitoring: heart rate, monitor tech and continuous pulse ox Block type: TAP Laterality: bilateral Injection technique: single-shot Guidance: ultrasound guided Local infiltration: lidocaine Needle Needle type: short-bevel Needle gauge: 20 G Needle length: 10 cm Needle localization: ultrasound guidance Test dose: negative Assessment Injection assessment: negative aspiration for heme, no paresthesia on injection, incremental injection and local visualized surrounding nerve on ultrasound Paresthesia pain: none Heart rate change: no Slow fractionated injection: yes Additional Notes Total 30ml TAP solution injected incrementally each side. us Mary Carmen Elkins MD ANESTHESIA ORDERABLES F inal Result documented in this encounter Visit Diagnoses Not on filedocumented in this encounter Administered Medications Inactive Administered Medications - up to 3 most recent administrations Medication Order MAR Action Action Date Dose Rate Site dexmedeTOMIDine (PRECEDEX) injection As needed, intravenous, Starting on Mon05/22/24 at 1513, Anesthesia Intra-op Given 05/22/2024 3:13 PM EDT 25 mcg ertapenem (INVanz) 1 g in sodium chloride 0.9 % (NS) 50 mL JOSE IVPB 1 g Once, intravenous, at 100 mL/hr, On Mon05/22/24 at 1200, For 1 dose, Pre-op, Ertapenem is a RESTRICTED ANTIMICROBIAL; Select the criteria for why Ertapenem is required: A one-time dose prior to discharge within 24 hours for outpatient IV antibiotic therapy., Please choose an indication: Surgical Prophylaxis New Bag 05/22/2024 2:30 PM EDT 1 g fentaNYL PF (SUBLIMAZE) injection As needed, intravenous, Starting on Mon05/22/24 at 1423, Anesthesia Intra-op Given 05/22/2024 4:26 PM EDT 25 mcg Given 05/22/2024 4:11 PM EDT 25 mcg Given 05/22/2024 2:23 PM EDT 50 mcg glycopyrrolate (ROBINUL) injection As needed, intravenous, Starting on Mon05/22/24 at 1604, Anesthesia Intra-op Given 05/22/2024 4:04 PM EDT 0.6 mg lactated Ringer's infusion 100 mL/hr Continuous, intravenous, Starting on Mon05/22/24 at 1200, Pre-op Restarted 05/22/2024 2:18 PM EDT New Bag 05/22/2024 11:58 AM EDT 100 mL/hr 100 mL/hr lidocaine (XYLOCAINE) injection 2% As needed, intravenous, Starting on Mon05/22/24 at 1423, Anesthesia Intra-op Given 05/22/2024 2:23 PM EDT 100 mg magnesium sulfate 500 mg/mL (50 %) injection As needed, intravenous, Starting on Mon05/22/24 at 1513, Anesthesia Intra-op Given 05/22/2024 3:13 PM EDT 2 g neostigmine methylsulfate (PROSTIGMINE) injection As needed, intravenous, Starting on Mon05/22/24 at 1604, Anesthesia Intra-op Given 05/22/2024 4:04 PM EDT 4 mg ondansetron (ZOFRAN) injection As needed, intravenous, Starting on Mon05/22/24 at 1557, Anesthesia Intra-op Given 05/22/2024 3:57 PM EDT 4 mg propofol (DIPRIVAN) injection 10 mg/mL bolus As needed, intravenous, Starting on Mon05/22/24 at 1423, Anesthesia Intra-op Given 05/22/2024 2:23 PM EDT 150 mg rocuronium (ZEMURON) injection As needed, intravenous, Starting on Mon05/22/24 at 1423, Anesthesia Intra-op Given 05/22/2024 3:28 PM EDT 10 mg Given 05/22/2024 2:23 PM EDT 40 mg documented in this encounter Care Teams Environment Coordinator Relationship Specialty Start Date End Date Deandra Lopez APRN PCP - General Nurse Practitioner 04/18/22 06/03/24 documented as of this encounter
--- OUTSIDE RECORDS SUMMARY | 2024-05-28 11:00 | XMS_ITS | Encounter Summary ---
Author Organization [facility] [email or web address] Address [address] [place] [address] Care Team Providers Care Figure Clerk Name Role Phone Deandra Lopez APRN Primary Care Provider +1- [phone] Encounter Details Date Type Department Care Team (Latest Contact Info) Description 05/28/2024 11:00 AM EDT - 05/28/2024 11:59 PM EDT Hospital Encounter [facility] Wound & Ostomy Therapy [address] [place] [address] Discharge Disposition: Home or Self Care Social [...] your living situation today? I have a [facility] place to live 05/22/2024 Think about [...] Do you speak a language other than Estonian at [facility]? No 05/22/2024 Do you want help with [...] PM CDT documented as of this encounter Medications at Time of Discharge [...] to 7 days. 20 tablet 05/25/2024 5 potassium, sodium phosphates [...] as of this encounter Progress Notes * Erna Morataya RN - 05/28/2024 12:21 PM EDTSummary: [facility] 05/28/24 1100 Ostomy (Stool) Ileostomy RLQ Date First Assessed/Time First Assessed: 05/22/241929 Ostomy Type: Ileostomy Location: RLQ Ostomy Status Budded;Established;Functioning;Moist Stoma Color Red Peristomal Skin Intact Patient at ostomy clinic for reinforcement of ileostomy teaching, s/p ileostomy. Pateint scheduled for follow up with Dr. Diaz today. Ostomy status as above, patient relates that she changed her pouch last night and did not want to change pouching system today, relating that she is comfortable with pouch change. Patient relates that pouching system applied last Monday while hospitalized lasted until last night. All ostomy teaching per Sujata folder that was given to patient previously. Reinforced how to change the pouch, patient able to repeat back steps for changing ostomy appliance. Reinforced daily ostomy care, diet, what stoma should look like and when to call doctor. Reinforced how to treat peristomal skin damage using powder and barrier spray. Follow up appointment made for 2024 at 1100, wanting to see about pre-cut pouching system. Total time spent with patient was 60 minutes. documented in this encounter Plan of Treatment Upcoming Encounters Date Type Department Care Team (Late st Contact Info) Description 07/17/2024 11:00 AM EDT Appointment [facility] Wound & Ostomy Therapy [address] [place] [address] 08/28/2024 9:15 AM EDT Office Visit [facility] Urology - [address] [place] [address] Chandrika Santana, VEST FINISHER [address] [place] [address] 04/17/2025 8:30 AM EDT Office Visit [facility] Cardiology - [place] [address] [place] [address] Tamara Sow PA-C [address] [facility] [address] [place] [address] documented as of this encounter Visit Diagnoses Not on filedocumented in this encounter Care Teams Figure Clerk Relationship Specialty Start Date End Date Deandra Lopez, VEST FINISHER PCP - General Nurse Practitioner 04/18/22 06/03/24 documented as of this encounter
--- OUTSIDE RECORDS SUMMARY | 2024-06-04 18:26 | XMS_ITS | Encounter Summary ---
Author Organization [facility] Address [address] [place] [address] Care Team Providers Care Panel Assembler Name Role Phone Deandra Lopez APRN Primary Care Provider [phone] Reason for Visit * Reason Comments Abdominal Pain * Auth/Cert (Routine) Specialty Diagnoses / Procedures Referred By Contac t Referred To Contact Diagnoses Intra-abdominal fluid collection Emergency Department [address] [place] [address] Phone: tel: fax: Emergency Department [address] [place] [address] Phone: tel: fax: Referral ID Status Reason Start Date Expiration Date Visits Re quested Visits Authorized [id number] 1 1 Encounter Details Date Type Department Care Team (Late st Contact Info) Description 06/04/2024 6:26 PM EDT - 06/05/2024 2:41 PM EDT Hospital Encounter Emergency Department [address] [place] [address] Mekhi Santana DO [address] [place] [address] Selvin Guan MD [address] [place] [address] Owen Tellez MD [address] [facility] [address] [place] [address] Abdominal pain (Primary Dx); Abdominal wall seroma, initial encounter; Hyponatremia; Abdominal pain, unspecified abdominal location Discharge Disposition: Home or Self Care Social [...] your living situation today? I have a [facility] place to live 05/22/2024 Think about [...] Do you speak a language other than [facility]? No 05/22/2024 Do you want help [...] Sign Reading Time Taken Comments Blood Pressure 129/65 06/05/2024 8:30 AM EDT Pulse 78 06/05/2024 8:45 AM EDT Temperature 37.2 C (98.9 F) 06/04/2024 6:24 PM EDT Respiratory Rate 15 06/05/2024 8:45 AM EDT Oxygen Saturation 93% 06/05/2024 8:45 AM EDT Inhaled Oxygen Concentration - - Weight 82.1 kg (181 lb) 06/04/2024 6:24 PM EDT Height 165.1 cm (5' 5 ) 06/04/2024 6:24 PM EDT Body Mass Index 30.12 06/04/2024 6:24 PM EDT documented in this encounter Discharge Summaries * Owen Tellez MD - 06/05/2024 2:10 PM EDT [facility] MEDICINE DISCHARGE SUMMARY: Patient Name: Demetra Diaz : 1980 Date of Admission: 06/04/2024 Date of Discharge: 06/05/2024 Discharge to facility: Home Discharge CODE STATUS: Full code Primary Care Physician: Deandra Lopez APRN Consultations: Treatment Team: Consulting Physician: Dennis Diaz MD PCP to follow up: Patient will follow-up closely with colorectal surgery Hospital Course and Discharge Diagnosis: Demetra Diaz is a 44 y.o. 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 DIAGNOSIS: Recent abdominal surgery which included takedown of ileal rectal anastomosis and diverting loop ileostomy, [address] Diaz. Abdominal pain with mild wound dehiscence and discharge and incisional cellulitis, present on admission CT abdomen is consistent with fluid collection in central pelvis. Likely seroma. Appreciated surgery input. Surgery cleared the patient for discharge and recommended outpatient oral antibiotic and follow-up. Hyponatremia, likely secondary to some dehydration. Improved. Diabetes mellitus, type II. Continue home treatment. Essential hypertension Hyperlipidemia Hypothyroid GERD Discharge Instructions Discharge Diet: Advance diet as tolerated Discharge Activity: Follow-up with surgery recommendations Discharge Follow UP: PCP and general surgery Studies Performed: CT ABDOMEN/PELVIS WITH IV CONTRAST Result Date: 06/04/2024 CT OF THE ABDOMEN AND PELVIS HISTORY: Pain from ileostomy site PROCEDURE: Routine axial images wereobtained from the lung bases to the pubic symphysis following IV and oral contrast administration. This study was performed with techniques to keep radiation doses low as reasonably achievable, (ALARA). Individualized dose reduction techniques using automated exposure control or adjustment of mA and/or kV according to the patient size were employed. COMPARISON: May 24, 2024 FINDINGS: Abdomen: The gallbladder has been removed. Solid organs and ureters are within normal limits. Again seen are postoperative changes from subtotal colectomy and right lower quadrant ileostomy. The ileostomy has anormal appearance. A 10.2 x 4.8 cm fluid collection has developed in the central pelvis. Although no air is within this fluid collection is seen, an abscess cannot be excluded. Pelvis: The urinary bladder is normal. The uterus and ovaries are absent. There is no pelvic or abdominal ascites, adenopathy, or acute osseous abnormality. Fluid collection in central pelvis may represent seroma or abscess. Images reviewed, interpreted, and dictated by Dr. John Edouard. Transcribed by Terrance Ascencio. CT ABDOMEN/PELVIS WITHOUT IV CONTRAST Standard Protocol Result Date: 05/24/2024 CT OF THE ABDOMEN AND PELVIS WITHOUT CONTRAST HISTORY: Recent colon surgery with postoperative hypotension and anemia. PROCEDURE: Routine axial images were obtained from the lung bases to the pubic symphysis. No contrast was given. This study was performed with techniques to keep radiation doses aslow as reasonably achievable, (ALARA). Individualized dose reduction techniques using automated exposure control or adjustment of mA and/or kV according to the patient size were employed. COMPARISON:03/21/2023 FINDINGS: Abdomen: There is pneumoperitoneum, consistent with recent abdominal surgery. The gallbladder has been removed. Solid abdominal organs and ureters remain within normal limits. 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 A small amount of dependenthigh density within the peritoneum on images 65 [...] abdominal ascites, adenopathy, or acute osseous abnormality. Expected postoperative findings. Small amount of hemoperitoneum in the pelvis. Images reviewed, interpreted and dictated by Dr. John Edouard MD XR KUB PORTABLE Result Date: 05/24/2024 PORTABLE CHEST HISTORY: Shortness of breath. COMPARISON: 05/15/2024. FINDINGS: The heart is borderline in size. The mediastinum is unremarkable . The lungs are hypoaerated with perihilar vascular crowding . There is no pneumothorax . The osseous structures are unremarkable . Hypoaeration and pulmonary vascular congestion. SINGLE VIEW ABDOMEN HISTORY: Abdominal pain. FINDINGS: ABDOMEN: Single view of the abdomen demonstrates a nonspecific bowel gas pattern. No abnormal calcifications.Cholecystectomy clips are present. IMPRESSION: Nonspecific bowel gas pattern. Images reviewed, interpreted, and dictated by Dr. Janusz Murray. Transcribed by Jarrod Ruiz PA-C. XR chest AP portable Result Date: 05/24/2024 PORTABLE CHEST HISTORY: Shortness of breath. COMPARISON: 05/15/2024. FINDINGS: The heart is borderline in size. The mediastinum is unremarkable . The lungs are hypoaerated with perihilar vascular crowding . There is no pneumothorax . The osseous structures are unremarkable . Hypoaeration and pulmonary vascular congestion. SINGLE VIEW ABDOMEN HISTORY: Abdominal pain. FINDINGS: ABDOMEN: Single view of the abdomen demonstrates a nonspecific bowel gas pattern. No abnormal calcifications.Cholecystectomy clips are present. IMPRESSION: Nonspecific bowel gas pattern. Images reviewed, interpreted, and dictated by Dr. Janusz Murray. Transcribed by Jarrod Ruiz PA-C. X-ray chest PA and lateral Result Date: 05/15/2024 TWO VIEW CHEST HISTORY: Preoperative cardiopulmonary evaluation, hypertension. COMPARISON: November 2021. FINDINGS: The heart is normal in size. The mediastinum is unremarkable. The lungs are clear. There is no pneumothorax. No acute cardiopulmonary process. Images reviewed, interpreted, and dictated by Dr. Esperanza Dixon. Transcribed by Deandra Cain PA-C. Procedures Performed: Discharge Medications: Your medication list START taking these medications Instructions Comments Quantity Refills amoxicillin-clavulanate 875-125 mg per tablet Commonly known as: AUGMENTIN Take 1 tablet by mouth 2 (two) times daily with breakfast and dinner for 10 days. 20 tablet 0 Saccharomyces boulardii 250 mg capsule Commonly known as: FLORASTOR Take 1 capsule (250 mg total) by mouth daily for 7 days. 7 capsule 0 CONTINUE taking these medications Instructions Comments Quantity Refills acetaminophen 500 MG tablet Commonly known as: TYLENOL Take 2 tablets (1,000 mg total) by mouth every 6 (six) hours as needed for pain or fever. 0 Aimovig Autoinjector 140 mg/mL Atin Generic drug: erenumab-aooe Inject 140 mg under the skin every 28 days. 0 ALPRAZolam 1 MG tablet Commonly known as: XANAX Take 1 tablet (1 mg total) by mouth 2 (two) times daily as needed for anxiety. 0 armodafiniL 200 mg Tab Take 1 [...] on the skin once a week. 0 gabapentin 300 MG capsule Commonly known [...] by mouth 2 (two) times daily. 0 Missing or Non-Formulary Medication Apply 1 Application topically 4 (four) times daily as needed (for Pain) Compounded Cream: amantadine 10%/gabapentin 10%/piroxicam 0.5%/ketamine 4%/prilocaine 5%; apply to affected area as directed. 0 Myrbetriq 50 mg Tb24 ER tablet Generic drug: mirabegron Take 1 tablet (50 mg total) by mouth daily. 0 Nurtec ODT 75 mg Tbdl Generic drug: rimegepant Take 1 tablet by mouth every other day. 0 ondansetron 4 MG disintegrating tablet Commonly known as: ZOFRAN-ODT Take 1 tablet (4 mg total) by mouth every 8 (eight) hours as needed for nausea or vomiting. 0 potassium chloride 20 mEq CR tablet Commonly known as: KLOR-CON Take 1 tablet (20 mEq total) by mouth daily as needed Take with Lasix as directed. 0 prazosin 2 MG capsule Commonly known as: MINIPRESS Take 3 capsules (6 mg total) by mouth nightly. 0 Rexulti 3 mg Tab tablet Generic drug: brexpiprazole Take 1 tablet (3 mg total) by mouth daily. 0 simethicone 80 MG chewable tablet Commonly known as: MYLICON Take 1 tablet (80 mg total) by mouth every 6 (six) hours as needed for flatulence. 0 triamcinolone 0.1 % topical cream Commonly known as: KENALOG Apply 1 Application topically 2 (two) times daily Apply to affected areas as directed . 0 STOP taking these medications famotidine 40 MG tablet Commonly known as: PEPCID furosemide 20 MG tablet Commonly known as: LASIX Where to Get Your Medications These medications were sent to [facility] [address] [place] [address] amoxicillin-clavulanate 875-125 mg per tablet Saccharomyces boulardii 250 mg capsule Time Spent: More than 30 minutes Electronically signed by Owen Tellez MD, 06/05/24, 2:11 PM EDT documented in this encounter Medications at Time of Discharge acetaminophen (TYLENOL) 500 MG tablet Take 2 tablets (1,000 mg total) by mouth every 6 (six) hours as needed for pain or fever. ALPRAZolam (XANAX) 1 MG tablet Take 1 tablet (1 mg total) by mouth 2 (two) times daily as needed for anxiety. armodafiniL 200 mg Tab Take 1 tablet by mouth daily. 04/04/2022 atorvastatin (LIPITOR) 80 MG tablet Take 1 tablet (80 mg total) by mouth nightly. brexpiprazole (Rexulti) 3 mg tab tablet Take 1 tablet (3 mg total) by mouth daily. cyanocobalamin 500 MCG tablet Take 1 tablet (500 mcg total) by mouth daily. desvenlafaxine succinate (PRISTIQ) 100 MG 24 hr tablet Take 1 tablet (100 mg total) by mouth daily. erenumab-aooe (Aimovig Autoinjector) 140 mg/mL AtIn Inject 140 mg under the skin every 28 days. esomeprazole (NexIUM) 40 MG capsule Take 1 capsule (40 mg total) by mouth daily. 02/25/2022 estradioL (CLIMARA) 0.1 mg/[address] 1 patch on the skin once a week. icosapent ethyL (VASCEPA) 1 gram capsule Take 2 capsules (2 g total) by mouth 2 (two) times daily. 03/29/2022 isosorbide mononitrate (IMDUR) 30 MG 24 hr tabletIndications:H ypertension, unspecified type Take 1 tablet (30 mg [...] total) by mouth 2 (two) times daily. Missing or Non-Formulary Medication Apply 1 Application topically 4 (four) times daily as needed (for Pain) Compounded Cream: amantadine 10%/gabapentin 10%/piroxicam 0.5%/ketamine 4%/prilocaine 5%; apply to affected area as directed. ondansetron (ZOFRAN-ODT) 4 MG disintegrating tablet Take 1 tablet (4 mg total) by mouth every 8 (eight) hours as needed for nausea or vomiting. potassium chloride (KLOR-CON) 20 mEq CR tablet Take 1 tablet (20 mEq total) by mouth daily as needed Take with Lasix as directed. 03/25/2022 prazosin (MINIPRESS) 2 MG capsule Take 3 capsules (6 mg total) by mouth nightly. rimegepant (Nurtec ODT) 75 mg TbDL Take 1 tablet by mouth every other day. simethicone (MYLICON) 80 MG chewable tablet Take 1 tablet (80 mg total) by mouth every 6 (six) hours as needed for flatulence. triamcinolone (KENALOG) 0.1 % topical cream Apply 1 Application topically 2 (two) times daily Apply to affected areas as directed . amoxicillin-clavula xenia (AUGMENTIN) 875-125 mg per tablet Take 1 tablet by mouth 2 (two) times daily with breakfast and dinner for 10 days. 20 tablet 06/05/2024 06/16/19 25 gabapentin (NEURONTIN) 300 MG capsule Take 1 capsule (300 mg total) by mouth nightly. 11/21/2023 06/25/19 25 Saccharomyces boulardii (FLORASTOR) 250 mg capsule Take 1 capsule (250 mg total) by mouth daily for 7 days. 7 capsule 06/05/2024 06/13/19 25 mirabegron (Myrbetriq) 50 mg Tb24 ER tablet Take 1 tablet (50 mg total) by mouth daily. 07/12/19 25 documented as of this encounter Progress Notes * Owen Tellez MD - 06/05/2024 8:45 AM EDT [facility] MEDICINE PROGRESS NOTE: Patient: Demetra Diaz Date: 06/05/2024 ASSESSMENT and PLAN: Demetra Diaz is a 44 y.o. 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 DIAGNOSIS: Recent abdominal surgery which included takedown of ileal rectal anastomosis and diverting loop ileostomy, [address] Diaz. Abdominal pain with mild wound dehiscence and discharge and incisional cellulitis, present on admission CT abdomen is consistent with fluid collection in central pelvis possibility of seroma and less likely abscess with no fever and normal WBC. Hyponatremia, likely secondary to some dehydration. Diabetes mellitus, type II Essential hypertension Hyperlipidemia Hypothyroid GERD PLAN: Continue with current treatment including IV hydration and IV antibiotic coverage. Follow cultures. Will check the wound culture. Monitor labs and electrolytes and correct as needed. Monitor blood glucose and cover with sliding scale insulin per protocol. Home medications will be reconciled. Discussed with the surgery at bedside. Follow closely DVT Prophylaxis: Per protocol CODE STATUS : Full code Previous Living Condition: From home Expected Disposition: Likely will go back home Expected Discharge Date: In next 1 to 2 days Subjective Patient seen and examined at bedside this AM. This patient is new to me today. I have reviewed pertinent notes, laboratory findings, imaging, and have summarized as above. Patient seen and examined in the emergency department while she is still waiting room assignment. While I was examining the patient Dr. Diaz also arrived and saw the patient. She is afebrile. Abdominal pain is better. Hemodynamics are stable. Objective Vitals: Temp: [98.9 ??F (37.2 ??C)] 98.9 ??F (37.2 ??C) Pulse: [62-85] 62 Resp: [8-18] 8 BP: (106-152)/(56-76) 106/62 Intake/Output: Intake/Output Summary (Last 24 hours) at 06/05/2024 0845 Last data filed at 06/05/2024 0651 Gross per 24 hour Intake 1300 ml Output -- Net 1300 ml Physical exam: General: Looks comfortable and no distress HEENT: Head atraumatic, normal cephalic. Pupil bilateral equal and reacting. Conjunctive are normal. Neck: Supple. CVS: S1, S2, no S3 or S4. Lungs: Diminished air entry a but clear to auscultation Abdomen: Right middle abdomen ileostomy noted which is working again with stool. Lower central incision looks fine other than a small dehiscence in the lower part and positive discharge and some surrounding cellulitis. 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 No gross neurological focal deficits. Musculoskeletal: Range of motion is normal. No pedal edema. Skin: Unremarkable except what described above. Psychiatry: Mood appropriate Medications: Scheduled Meds: ALPRAZolam 1 mg oral BID 1 mg at 06/04/242142 ARIPiprazole 10 mg oral Daily armodafiniL 1 tablet oral Daily atorvastatin 80 mg oral Every Night 80 mg at 06/04/242142 cyanocobalamin 500 mcg oral Daily desvenlafaxine 100 mg oral Daily gabapentin 300 mg oral Every Night 300 mg at 06/04/242143 icosapent ethyL 2 g oral BID 2 g at 06/04/242143 isosorbide mononitrate 30 mg oral Daily lamoTRIgine 150 mg oral BID 150 mg at 06/04/242238 levothyroxine 125 mcg oral QAM 125 mcg at 06/05/24 0617 metoprolol succinate 50 mg oral BID mirabegron 50 mg oral Daily pantoprazole 40 mg oral Daily piperacillin-tazobactam (ZOSYN) 4.5 g in sodium chloride 0.9 % (NS) MBP 100 mL IVPB 4.5 g intravenous Q6H JEANIE Stopped at 06/05/24 0651 prazosin 6 mg oral Every Night 6 mg at 06/04/24 2240 rimegepant 1 tablet oral Every Other Day Continuous Infusions: Current Facility-Administered Medications Medication Dose Route Frequency Provider Last Rate Last Admin acetaminophen (TYLENOL) tablet 1,000 mg 1,000 mg oral Q6H PRN Selvin Hernandez MD 1,000 mg at 06/05/24 0140 ALPRAZolam (XANAX) tablet 1 mg 1 mg oral BID Selvin Hernandez MD 1 mg at 06/04/242142 ARIPiprazole (ABILIFY) tablet 10 mg 10 mg oral Daily Selvin Hernandez MD armodafiniL tab 1 tablet 1 tablet oral Daily Selvin Hernandez MD atorvastatin (LIPITOR) tablet 80 mg 80 mg oral Every Night Selvin Hernandez MD 80 mg at 06/04/242142 cyanocobalamin tablet 500 mcg 500 mcg oral Daily Selvin Hernandez MD desvenlafaxine (PRISTIQ) ER 24 hr tablet 100 mg 100 mg oral Daily Selvin Hernandez MD docusate sodium (COLACE) capsule 100 mg 100 mg oral BID PRN Selvin Hernandez MD gabapentin (NEURONTIN) capsule 300 mg 300 mg oral Every Night Selvin Hernandez MD 300 mg at 06/04/242143 hydrALAZINE (APRESOLINE) injection 10 mg 10 mg intravenous Q4H PRN Selvin Hernadnez MD icosapent ethyL (VASCEPA) capsule 2 g 2 g oral BID Selvin Hernandez MD 2 g at 06/04/242143 isosorbide mononitrate (IMDUR) 24 hr tablet 30 mg 30 mg oral Daily Selvin Hernandez MD lamoTRIgine (LaMICtal) tablet 150 mg 150 mg oral BID Selvin Hernandez MD 150 mg at 06/04/24 223 levothyroxine (SYNTHROID) tablet 125 mcg 125 mcg oral QAM Selvin Hernandez MD 125 mcg at 06/05/24 0617 LORazepam (ATIVAN) tablet 1 mg 1 mg oral Q4H PRN Selvin Hernandez MD melatonin tablet 5 mg 5 mg oral Every Night PRN Selvin Hernandez MD metoprolol succinate (TOPROL-XL) 24 hr tablet 50 mg 50 mg oral BID Selvin Hernandez MD mirabegron (MYRBETRIQ) 24 hr tablet 50 mg 50 mg oral Daily Selvin Hernandez MD morphine injection 2 mg 2 mg intravenous Q4H PRN Selvin Hernandez MD naloxone (NARCAN) injection 0.2 mg 0.2 mg intravenous Q2 Min PRN Selvin Hernandez MD ondansetron (ZOFRAN-ODT) disintegrating tablet 4 mg 4 mg oral Q6H PRN Selvin Hernandez MD Or ondansetron (ZOFRAN) injection 4 mg 4 mg intravenous Q6H PRN Selvin Hernandez MD pantoprazole (PROTONIX) EC tablet 40 mg 40 mg oral Daily Selvin Hernandez MD piperacillin-tazobactam (ZOSYN) 4.5 g in sodium chloride 0.9 % (NS) MBP 100 mL IVPB 4.5 g intravenous Q6H JEANIE Selvin Hernandez MD Stopped at 06/05/24 0651 potassium chloride IVPB 10 mEq in 100 mL sterile water (premix) 10 mEq intravenous Q1H PRN Selvin Hernandez MD prazosin (MINIPRESS) capsule 6 mg 6 mg oral Every Night Selvin Hernandez MD 6 mg at 06/04/24 2240 rimegepant TbDL 1 tablet 1 tablet oral Every Other Day Selvin Hernandez MD simethicone (MYLICON) chewable tablet 80 mg 80 mg oral Q6H PRN Selvin Hernandez MD sodium chloride 0.9 % infusion 100 mL/hr intravenous Continuous Selvin Hernandez MD 100 mL/hr at 06/04/24 2144 100 mL/hr at 06/04/24 214 sodium chloride flush 10 mL 10 mL intravenous PRN Kayla Marie APRN Current Outpatient Medications Medication Sig Dispense Refill Aimovig Autoinjector 140 mg/mL AtIn Inject 70 mg under the skin every 30 (thirty) days. ALPRAZolam (XANAX) 1 MG tablet Take 1 tablet (1 mg total) by mouth 2 (two) times daily. Max Daily Amount: 2 mg armodafiniL 200 mg Tab Take 1 tablet by mouth daily. atorvastatin (LIPITOR) 80 MG tablet Take 1 tablet (80 mg total) by mouth nightly. cyanocobalamin 500 MCG tablet Take 1 tablet (500 mcg total) by mouth daily. desvenlafaxine succinate (PRISTIQ) 100 MG 24 hr tablet Take 1 tablet (100 mg total) by mouth daily. esomeprazole (NexIUM) 40 MG capsule Take 1 capsule (40 mg total) by mouth daily. estradioL (CLIMARA) 0.1 mg/[address] 1 patch on the skin once a week. famotidine (PEPCID) 40 MG tablet Take 1 tablet (40 mg total) by mouth nightly. furosemide (LASIX) 20 MG tablet Take 1 tablet (20 mg total) by mouth daily as needed. gabapentin (NEURONTIN) 300 MG capsule Take 1 capsule (300 mg total) by mouth nightly. icosapent ethyL (VASCEPA) 1 gram capsule Take 2 capsules (2 g total) by mouth 2 (two) times daily. isosorbide mononitrate (IMDUR) 30 MG 24 hr tablet Take 1 tablet (30 mg total) by mouth daily. 30 tablet 10 lamoTRIgine (LaMICtal) 150 MG tablet Take 1 tablet (150 mg total) by mouth 2 (two) times daily. levothyroxine (SYNTHROID, LEVOTHROID) 125 MCG tablet Take 1 tablet (125 mcg total) by mouth Every morning on an empty stomach. metoprolol succinate (TOPROL-XL) 50 MG 24 hr tablet Take 1 tablet (50 mg total) by mouth 2 (two) times daily. Myrbetriq 50 mg Tb24 ER tablet Take 1 tablet (50 mg total) by mouth daily. Nurtec ODT 75 mg TbDL Take 1 tablet by mouth every other day. potassium chloride (KLOR-CON) 20 mEq CR tablet Take 1 tablet (20 mEq total) by mouth daily as needed. prazosin (MINIPRESS) 2 MG capsule Take 3 capsules (6 mg total) by mouth nightly. Rexulti 2 mg tab tablet Take 1 tablet (2 mg total) by mouth daily. PRN Meds: @MEDSPRN@ Labs: Results for orders placed or performed during the hospital encounter of 06/04/24 (from the past 24 hours) CBC with Auto Diff Status: Abnormal Collection Time: 06/04/24 6:31 PM Result Value Ref Range WBC 8.0 4.0 - 10.0 K/??L RBC 3.95 3.93 - 5.22 M/??L Hemoglobin 11.3 11.2 - 15.7 GM/DL Hematocrit 32.9 (L) 34.1 - 44.9 % MCV 83 79 - 95 fL MCH 28.6 25.6 - 32.2 pg MCHC 34.3 32.2 - 35.5 GM/DL RDW 12.8 11.7 - 14.4 % Platelets 318 140 - 375 K/CU MM MPV 8.2 (L) 9.4 - 12.3 fL % Neutros 72 (H) 34 - 71 % % Lymphs 19 19 - 52 % % Monos 5 5 - 13 % % Eos 4 1 - 6 % % Baso 1 0 - 1 % NRBC Absolute <0.01 0 - 0.012 K/ul # Neutros 5.76 1.56 - 6.13 K/??L # Lymphs 1.51 1.18 - 3.74 K/??L # Monos 0.39 0.24 - 0.86 K/??L # Eos 0.28 0.04 - 0.36 K/??L # Baso 0.06 0.01 - 0.08 K/??L Immature Granulocytes-Relative 0.20 0.01 - 0.43 % # IG <0.03 0.00 - 0.03 K/uL Lactic Acid with reflex (SJ) Status: Normal Collection Time: 06/04/24 6:31 PM Result Value Ref Range Lactic Acid Level (mmol/L) 1.0 0.5 - 2.2 mmol/L Comprehensive metabolic panel Status: Abnormal Collection Time: 06/04/24 6:31 PM Result Value Ref Range Sodium 124 (L) 136 - 145 meq/L Potassium 3.6 3.4 - 5.1 meq/L Chloride 92 (L) 98 - 112 meq/L CO2 24 22 - 29 meq/L Calcium 8.8 8.4 - 10.2 mg/dL Glucose 99 74 - 100 mg/dL BUN <3.0 (L) 7.0 - 18.7 mg/dL Creatinine 0.73 0.57 - 1.11 mg/dL BUN/Creatinine <4 (L) 8 - 20 eGFR (mL/min/1.73m2) 104 >=60 mL/min/1.73m2 Albumin 3.8 3.5 - 5.0 g/dL Alkaline Phosphatase 192 (H) 40 - 150 U/L ALT 18 <=34 U/L AST 24 11 - 34 U/L Total Bilirubin 0.5 0.2 - 1.2 mg/dL Protein, Total 7.7 6.4 - 8.3 g/dL Globulin 3.9 2.5 - 4.1 g/dL Anion Gap 12 4 - 12 A/G Ratio 1.0 0.7 - 1.9 Osmolality Calc <246.2 mOsm/kg Urinalysis, Reflex Microscopic and Culture If Indicated Status: None Collection Time: 06/04/24 7:03 PM Result Value Ref Range Color, UA Colorless Clarity, UA Clear Clear Specific [place], UA 1.006 1.005 - 1.030 pH, UA 6.5 6.0 - 8.0 Leukocytes, UA Negative Negative Nitrite, UA Negative Negative Protein, UA Negative Negative Glucose, UA Normal Normal Ketones, UA Negative Negative Bilirubin, UA Negative Negative Blood, UA Negative Negative Urobilinogen, UA Normal Normal Specimen Source Urine, Clean Catch CBC - Hemogram (-BKR) Status: Abnormal Collection Time: 06/05/24 3:27 AM Result Value Ref Range WBC 7.5 4.0 - 10.0 K/??L RBC 3.67 (L) 3.93 - 5.22 M/??L Hemoglobin 10.5 (L) 11.2 - 15.7 GM/DL Hematocrit 31.0 (L) 34.1 - 44.9 % MCV 85 79 - 95 fL MCH 28.6 25.6 - 32.2 pg MCHC 33.9 32.2 - 35.5 GM/DL RDW 12.9 11.7 - 14.4 % Platelets 284 140 - 375 K/CU MM MPV 8.3 (L) 9.4 - 12.3 fL Comprehensive Metabolic Panel Status: Abnormal Collection Time: 06/05/24 3:27 AM Result Value Ref Range Sodium 132 (L) 136 - 145 meq/L Potassium 3.5 3.4 - 5.1 meq/L Chloride 101 98 - 112 meq/L CO2 26 22 - 29 meq/L Calcium 8.4 8.4 - 10.2 mg/dL Glucose 91 74 - 100 mg/dL BUN 3.3 (L) 7.0 - 18.7 mg/dL Creatinine 0.69 0.57 - 1.11 mg/dL BUN/Creatinine 5 (L) 8 - 20 eGFR (mL/min/1.73m2) 109 >=60 mL/min/1.73m2 Albumin 3.3 (L) 3.5 - 5.0 g/dL Alkaline Phosphatase 166 (H) 40 - 150 U/L ALT 20 <=34 U/L AST 19 11 - 34 U/L Total Bilirubin 0.5 0.2 - 1.2 mg/dL Protein, Total 6.5 6.4 - 8.3 g/dL Globulin 3.2 2.5 - 4.1 g/dL Anion Gap 9 4 - 12 A/G Ratio 1.0 0.7 - 1.9 Osmolality Calc 260.8 mOsm/kg Radiology: Radiology Results (last 3 days) Procedure Component Value Units Date/Time CT ABDOMEN/PELVIS WITH IV CONTRAST [[id number]] Collected: 06/04/242005 Order Status: Completed Updated: 06/04/242010 Narrative: CT OF THE ABDOMEN AND PELVIS HISTORY: Pain from ileostomy site PROCEDURE: Routine axial images were obtained from the lung bases to the pubic symphysis following IV and oral contrast administration. This study was performed with techniques to keep radiation doses low as reasonably achievable, (ALARA). Individualized dose reduction techniques using automated exposure control or adjustment of mA and/or kV according to the patient size were employed. COMPARISON: May 24, 2024 FINDINGS: Abdomen: The gallbladder has been removed. Solid organs and ureters are within normal limits. Again seen are postoperative changes from subtotal colectomy and right lower quadrant ileostomy. The ileostomy has a normal appearance. A 10.2 x 4.8 cm fluid collection has developed in the central pelvis. Although no air is within this fluid collection is seen, an abscess cannot be excluded. Pelvis: The urinary bladder is normal. The uterus and ovaries are absent. There is no pelvic or abdominal ascites, adenopathy, or acute osseous abnormality. Impression: Fluid collection in central pelvis may represent seroma or abscess. Images reviewed, interpreted, and dictated by Dr. John Edouard. Transcribed by Terrance Ascencio. Signed: 06/05/2024 documented in this encounter H&P Notes * Selvin Hernandez MD - 06/04/2024 9:01 PM EDT [facility] ADMITTING H&P: PCP: Deandra Lopez APRN Date of Admission: 06/04/2024 ASSESSMENT and PLAN: Demetra Diaz is a 44 y.o. 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 ER workup revealed: DIAGNOSIS: Large abd fluid collection postoperatively 10.2 x 4.8 cm, seroma vs abscess. S/p ex lap end ileostomy creation 05/22/[address] Diaz. Hyponatremia (chronic due to ileostomy high output, lasix use, and SIADH). DM2 GERD HTN HLD Hypothyroidism DVT Prophylaxis: SCDs CODE STATUS : Full PLAN: ADMIT to med/surg w tele NPO IVF NS 100 ml/hr IV zosyn Blood cx Colorectal surgery consulted by ER Pain meds IV PRN Antiemetics IV PRN Hold lasix due to hyponatremia. Resume home gabapentin, vascepa, imdur, metoprolol, levothyroxine. CBC, CMP in am. Previous Living Condition: home Expected Disposition: home Expected Discharge Date: 2-4 days. Chief Complaints Abd pain History Of Present Illness Demetra Diaz is a 44 y.o. female presenting with PMHx of DM2, edema, GERD, HLD, HTN, IBS, Hypothyroidism and Recent admission 05/22-05/25/24 under [facility] (they declined admission as pt's PCP is with [facility]) for ex lap end ileostomy creation 05/22/[address] Diaz and hyponatremia due to ileostomy and SIADH postop presented to [facility] ER with abd pain, oozing and bloody discharge around her ileostomy.Ileostomy was placed 13 days ago.the pt states that she had some small drainage and then a couple hours ago there was a lot of drainage. The pt states that there is pain to the left lower abdomen. Thee has been chills but no fever. The pt is alert and in no acute distress. ER workup: CBC is unremarkable. CMP significant for sodium 124 is chronic in nature previous admission patient was discharged with a sodium of 126. This is due to ileostomy output and SIADH per previous discharge summary. Alk Phos mildly elevated at 192, rest of LFTs are within normal limits. Albumin is normal. LA was normal UA was negative for UTI. CT scan of the abdomen pelvis with IV contrast showed: postoperative changes from subtotal colectomy and right lower quadrant ileostomy. The ileostomy hasa normal appearance. A 10.2 x 4.8 cm fluid collection has developed in the central pelvis. Although no air is within this fluid collection is seen, an abscess cannot be excluded. Interventions: NS bolus 1 L Consulted Colorectal Surgery Dr Diaz. Pt will be admitted for further eval and mgt. Review of Systems 10 point review of systems performed and is negative unless noted and documented in HPI and past medical history. Past Medical History Past Medical History: Diagnosis Date Anxiety Chest [...] cord stimulation SPINAL CORD STIMULATOR REMOVAL Social History reports that she has quit smoking. Her smoking use included cigarettes. She has never used smokeless tobacco. She reports that she does not drink alcohol and does not use drugs. Family History Problem Relation Name Age of Onset Hyperlipidemia Mother Hypertension Mother Coronary artery disease Mother Diabetes Father Hyperlipidemia Father Hyperlipidemia Maternal Grandmother Tuberculosis Maternal Grandmother Tuberculosis Maternal Grandfather Cancer Paternal Grandfather Diabetes Other Hyperlipidemia Other Cancer Other Allergies Paroxetine; Steroids; Wellbutrin [Bupropion Hcl]; Diclofenac; Hydroxyzine; Prednisone; Pseudoephedrine; Sumatriptan; and Tape, Permeable Adhesive Home Medications Current Outpatient Medications Medication Instructions acetaminophen (TYLENOL) 1,000 mg, oral, Every 6 hours interval Aimovig Autoinjector 140 mg/mL AtIn 1 mL, Every 30 days ALPRAZolam (XANAX) 1 mg, oral, 2 times daily armodafiniL 200 mg Tab 1 tablet, Daily atorvastatin (LIPITOR) 80 mg, Every Night cyanocobalamin 500 mcg, oral, Daily desvenlafaxine (PRISTIQ) 100 mg, Daily esomeprazole (NEXIUM) 40 mg, Daily estradioL (CLIMARA) 0.1 mg/24 hr patch 1 patch, transdermal, Weekly famotidine (PEPCID) 40 mg, Every Night furosemide (LASIX) 20 mg, Daily as needed gabapentin (NEURONTIN) 300 mg, Every Night icosapent ethyL (VASCEPA) 1 gram capsule 2 capsules, 2 times daily isosorbide mononitrate (IMDUR) 30 mg, oral, Daily lamoTRIgine (LAMICTAL) 150 mg, oral, 2 times daily levothyroxine (SYNTHROID) 125 mcg, Every morning on an empty stomach metoprolol succinate (TOPROL-XL) 50 mg, oral, 2 times daily Myrbetriq 50 mg, Daily Nurtec ODT 75 mg TbDL 1 tablet, Every other day potassium chloride (KLOR-CON) 20 mEq CR tablet 20 mEq, Daily as needed prazosin (MINIPRESS) 6 mg, Every Night Rexulti 2 mg tab tablet 1 tablet, Daily simethicone (MYLICON) 80 mg, oral, Every 6 hours PRN Physical Exam Vitals: 06/04/242052 BP: (!) 144/61 Pulse: 78 Resp: 18 Temp: SpO2: 92% General: Looks comfortable and no distress HEENT: Head atraumatic, normal cephalic. Pupil bilateral equal and reacting. Conjunctive are normal. Neck: Supple. No JVD noted CVS: S1, S2, no S3 or S4. Regular rate and rhythm no murmur. Lungs: Bilateral air entry. Normal chest expansion. Clear to auscultation bilaterally. Abdomen: Soft. TTP, no guarding or rebound Positive bowel sounds. Ileostomy incision with new drainage noted. 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 No gross neurological focal deficits. Musculoskeletal: Range of motion is normal. No pedal edema. Skin: Warm and dry on exposed surface. Psychiatry: Mood appropriate Labs & Imaging Recent Results (from the past 24 hours) CBC with Auto Diff Collection Time: 06/04/24 6:31 PM Result Value Ref Range WBC 8.0 4.0 - 10.0 K/??L RBC 3.95 3.93 - 5.22 M/??L Hemoglobin 11.3 11.2 - 15.7 GM/DL Hematocrit 32.9 (L) 34.1 - 44.9 % MCV 83 79 - 95 fL MCH 28.6 25.6 - 32.2 pg MCHC 34.3 32.2 - 35.5 GM/DL RDW 12.8 11.7 - 14.4 % Platelets 318 140 - 375 K/CU MM MPV 8.2 (L) 9.4 - 12.3 fL % Neutros 72 (H) 34 - 71 % % Lymphs 19 19 - 52 % % Monos 5 5 - 13 % % Eos 4 1 - 6 % % Baso 1 0 - 1 % NRBC Absolute <0.01 0 - 0.012 K/ul # Neutros 5.76 1.56 - 6.13 K/??L # Lymphs 1.51 1.18 - 3.74 K/??L # Monos 0.39 0.24 - 0.86 K/??L # Eos 0.28 0.04 - 0.36 K/??L # Baso 0.06 0.01 - 0.08 K/??L Immature Granulocytes-Relative 0.20 0.01 - 0.43 % # IG <0.03 0.00 - 0.03 K/uL Lactic Acid with reflex (SJ) Collection Time: 06/04/24 6:31 PM Result Value Ref Range Lactic Acid Level (mmol/L) 1.0 0.5 - 2.2 mmol/L Comprehensive metabolic panel Collection Time: 06/04/24 6:31 PM Result Value Ref Range Sodium 124 (L) 136 - 145 meq/L Potassium 3.6 3.4 - 5.1 meq/L Chloride 92 (L) 98 - 112 meq/L CO2 24 22 - 29 meq/L Calcium 8.8 8.4 - 10.2 mg/dL Glucose 99 74 - 100 mg/dL BUN <3.0 (L) 7.0 - 18.7 mg/dL Creatinine 0.73 0.57 - 1.11 mg/dL BUN/Creatinine <4 (L) 8 - 20 eGFR (mL/min/1.73m2) 104 >=60 mL/min/1.73m2 Albumin 3.8 3.5 - 5.0 g/dL Alkaline Phosphatase 192 (H) 40 - 150 U/L ALT 18 <=34 U/L AST 24 11 - 34 U/L Total Bilirubin 0.5 0.2 - 1.2 mg/dL Protein, Total 7.7 6.4 - 8.3 g/dL Globulin 3.9 2.5 - 4.1 g/dL Anion Gap 12 4 - 12 A/G Ratio 1.0 0.7 - 1.9 Osmolality Calc <246.2 mOsm/kg Urinalysis, Reflex Microscopic and Culture If Indicated Collection Time: 06/04/24 7:03 PM Result Value Ref Range Color, UA Colorless Clarity, UA Clear Clear Specific Amity, UA 1.006 1.005 - 1.030 pH, UA 6.5 6.0 - 8.0 Leukocytes, UA Negative Negative Nitrite, UA Negative Negative Protein, UA Negative Negative Glucose, UA Normal Normal Ketones, UA Negative Negative Bilirubin, UA Negative Negative Blood, UA Negative Negative Urobilinogen, UA Normal Normal Specimen Source Urine, Clean Catch CT ABDOMEN/PELVIS WITH IV CONTRAST Result Date: 06/04/2024 CT OF THE ABDOMEN AND PELVIS HISTORY: Pain from ileostomy site PROCEDURE: Routine axial images wereobtained from the lung bases to the pubic symphysis following IV and oral contrast administration. This study was performed with techniques to keep radiation doses low as reasonably achievable, (ALARA). Individualized dose reduction techniques using automated exposure control or adjustment of mA and/or kV according to the patient size were employed. COMPARISON: May 24, 2024 FINDINGS: Abdomen: The gallbladder has been removed. Solid organs and ureters are within normal limits. Again seen are postoperative changes from subtotal colectomy and right lower quadrant ileostomy. The ileostomy has anormal appearance. A 10.2 x 4.8 cm fluid collection has developed in the central pelvis. Although no air is within this fluid collection is seen, an abscess cannot be excluded. Pelvis: The urinary bladder is normal. The uterus and ovaries are absent. There is no pelvic or abdominal ascites, adenopathy, or acute osseous abnormality. Fluid collection in central pelvis may represent seroma or abscess. Images reviewed, interpreted, and dictated by Dr. John Edouard. Transcribed by Terrance Ascencio. CT ABDOMEN/PELVIS WITHOUT IV CONTRAST Standard Protocol Result Date: 05/24/2024 CT OF THE ABDOMEN AND PELVIS WITHOUT CONTRAST HISTORY: Recent colon surgery with postoperative hypotension and anemia. PROCEDURE: Routine axial images were obtained from the lung bases to the pubic symphysis. No contrast was given. This study was performed with techniques to keep radiation doses aslow as reasonably achievable, (ALARA). Individualized dose reduction techniques using automated exposure control or adjustment of mA and/or kV according to the patient size were employed. COMPARISON:03/21/2023 FINDINGS: Abdomen: There is pneumoperitoneum, consistent with recent abdominal surgery. The gallbladder has been removed. Solid abdominal organs and ureters remain within normal limits. 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 A small amount of dependenthigh density within the peritoneum on images 65 [...] abdominal ascites, adenopathy, or acute osseous abnormality. Expected postoperative findings. Small amount of hemoperitoneum in the pelvis. Images reviewed, interpreted and dictated by Dr. John Edouard MD XR KUB PORTABLE Result Date: 05/24/2024 PORTABLE CHEST HISTORY: Shortness of breath. COMPARISON: 05/15/2024. FINDINGS: The heart is borderline in size. The mediastinum is unremarkable . The lungs are hypoaerated with perihilar vascular crowding . There is no pneumothorax . The osseous structures are unremarkable . Hypoaeration and pulmonary vascular congestion. SINGLE VIEW ABDOMEN HISTORY: Abdominal pain. FINDINGS: ABDOMEN: Single view of the abdomen demonstrates a nonspecific bowel gas pattern. No abnormal calcifications.Cholecystectomy clips are present. IMPRESSION: Nonspecific bowel gas pattern. Images reviewed, interpreted, and dictated by Dr. Janusz Murray. Transcribed by Jarrod Ruiz PA-C. XR chest AP portable Result Date: 05/24/2024 PORTABLE CHEST HISTORY: Shortness of breath. COMPARISON: 05/15/2024. FINDINGS: The heart is borderline in size. The mediastinum is unremarkable . The lungs are hypoaerated with perihilar vascular crowding . There is no pneumothorax . The osseous structures are unremarkable . Hypoaeration and pulmonary vascular congestion. SINGLE VIEW ABDOMEN HISTORY: Abdominal pain. FINDINGS: ABDOMEN: Single view of the abdomen demonstrates a nonspecific bowel gas pattern. No abnormal calcifications.Cholecystectomy clips are present. IMPRESSION: Nonspecific bowel gas pattern. Images reviewed, interpreted, and dictated by Dr. Janusz Murray. Transcribed by Jarrod Ruiz PA-C. X-ray chest PA and lateral Result Date: 05/15/2024 TWO VIEW CHEST HISTORY: Preoperative cardiopulmonary evaluation, hypertension. COMPARISON: November 2021. FINDINGS: The heart is normal in size. The mediastinum is unremarkable. The lungs are clear. There is no pneumothorax. No acute cardiopulmonary process. Images reviewed, interpreted, and dictated by Dr. Esperanza Dixon. Transcribed by Deandra Cain PA-C. This patient is expected to need 2 midnights or greater length of stay due to medical issues and acute problems mentioned above . Electronically signed by: Selvin Hernandez MD, 06/04/2024 at 9:01 PM EDT documented in this encounter Consult Notes * Dennis Diaz MD - 06/05/2024 7:32 AM EDT Consults History of Present Illness: Demetra Diaz is a 44 y.o. female presenting with abdominal pain, and drainage from her midline incision. Briefly, patient underwent takedown of ileal rectal anastomosis and diverting loop ileostomy just over 2 weeks ago. This was a rather long and difficult surgery given the number of adhesions she had in her abdomen. The surgery was performed for ongoing pelvic floor disorder. I had seen the patient back in the office for postop check and she was doing well. Yesterday patient noted drainage from her midline incision which made her nervous and she came to the emergency room. Patient had a CT scan of the abdomen which shows a 10.2 x 4.8 cm fluid collection in the anterior pelvis. This appears to be nonrim-enhancing and contains no air. White count is normal. Patient has been without fever. She t ells me her appetite is poor. However, stoma is functioning.. Past Medical History: She has a past medical history of Anxiety, Chest pain, CPAP (continuous positive airway pressure) dependence, Depression, Diabetes (HCC), Dizziness, WIGGINS (dyspnea on exertion), Edema, GERD (gastroesophageal reflux disease), HLD (hyperlipidemia), HTN (hypertension), Hypothyroidism, IBS (irritable bowel syndrome), Migraines, BETTY (obstructive sleep apnea), PTSD (post-traumatic stress disorder), Tachycardia, and Vitamin D deficiency. Past Surgical History: She has a past surgical history that includes Back surgery; section; Cholecystectomy; Hysterectomy; spinal cord stimulation; Colonoscopy; Colectomy; Neck surgery; Carpal tunnel release (Bilateral); and Spinal cord stimulator removal. Social History: She reports that she has quit smoking. Her smoking use included cigarettes. She has never used smokeless tobacco. She reports that she does not drink alcohol and does not use drugs. Family History: Her family history includes Cancer in her paternal grandfather and another family member; Coronary artery disease in her mother; Diabetes in her father and another family member; Hyperlipidemia in her father, maternal grandmother, mother, and another family member; Hypertension in her mother; Tuberculosis in her maternal grandfather and maternal grandmother. Allergies: Paroxetine; Steroids; Wellbutrin [Bupropion Hcl]; Diclofenac; Hydroxyzine; Prednisone; Pseudoephedrine; Sumatriptan; and Tape, Permeable Adhesive Medications: (Not in a hospital admission) Review of Systems 12 point review of systems otherwise negative. Vitals: Blood pressure 106/62, pulse 62, temperature 98.9 ??F (37.2 ??C), temperature source Oral, resp. rate 8, height 1.651 m (5' 5 ), weight 82.1 kg (181 lb), SpO2 96%. Physical Exam Patient lying in bed in the emergency room. Alert and oriented x 3. And in no acute distress. Lungs are clear to auscultation bilaterally. Heart is regular rate and rhythm. Abdomen is soft and nondistended. Patient has very mild cellulitis extending about 1 cm from the wound edges at the lower portion of her wound. Stoma is pink and functioning with real output. Extremities are without cyanosis clubbing or edema. Skin is warm and dry to the touch. Relevant Results: See HPI above. Assessment & Plan Principal Problem: Intra-abdominal fluid collection Suspect that patient drained a seroma from her midline incision. It is possible that this could become a small soft tissue wound infection. Would recommend antibiotics. Given that patient has poor appetite and has come to the emergency room, I agree with bringing her in for observation and hydration for the next 24 hours to make sure she does well. Have spoken with hospitalist concerning plan. Both he and patient agree with plan. Electronically signed by Dennis Diaz MD 06/05/2024 at 7:32 AM documented in this encounter ED Notes * Julia Lucio - 06/05/2024 10:48 AM EDT Bed: ED24 Expected date: Expected time: Means of arrival: Comments: Has pt in room 11 Julia Lucio 06/05/24 1048 * Chata Galindo PA-C - 06/04/2024 6:21 PM EDT Subjective Chief Complaint: Abdominal Pain 44-year-old female presents to the ER with complaints of oozing and bloody discharge around her ileostomy. Patient states ileostomy was placed 13 days ago.the pt states that she had some small drainage and then a couple hours ago there was a lot of drainage. The pt states that there is pain to the left lower abdomen. Thee has been chills but no fever. The surgery was completed by Dr Diaz. The pt is alert and in no acute distress. Patient History Past Medical History: Diagnosis Date Anxiety Chest [...] spinal cord stimulation SPINAL CORD STIMULATOR REMOVAL Family History Problem Relation Name Age of Onset Hyperlipidemia Mother Hypertension Mother Coronary artery disease Mother Diabetes Father Hyperlipidemia Father Hyperlipidemia Maternal Grandmother Tuberculosis Maternal Grandmother Tuberculosis Maternal Grandfather Cancer Paternal Grandfather Diabetes Other Hyperlipidemia Other Cancer Other Social History Tobacco Use Smoking status: Former Types: Cigarettes Smokeless tobacco: Never Substance Use Topics Alcohol use: Never Comment: caffeine use I reviewed the HPI, ROS and PFSH documentation recorded by others in the medical record and supplemented my note as needed. Review of Systems Review of Systems Constitutional: Negative. HENT: Negative. Respiratory: Negative. Cardiovascular: Negative. Gastrointestinal: Positive for abdominal pain. Recent ileostomy. Large amount of drainage today. Endocrine: Negative. Genitourinary: Negative. Musculoskeletal: Negative. Skin: Negative. Allergic/Immunologic: Negative. Neurological: Negative. Hematological: Negative. Psychiatric/Behavioral: Negative. Physical Exam ED Triage Vitals Encounter Vitals Group BP Systolic BP Percentile Diastolic BP Percentile Pulse Resp Temp Temp src SpO2 Weight Height Head Circumference Peak Flow Pain Score Pain Loc Pain Education Exclude from Growth Chart Physical Exam Vitals and nursing note reviewed. Cardiovascular: Rate and Rhythm: Normal rate. Pulmonary: Effort: Pulmonary effort is normal. Abdominal: Palpations: Abdomen is soft. Tenderness: There is abdominal tenderness. Comments: Ileostomy incision with new drainage noted. Musculoskeletal: General: Normal range of motion. Skin: General: Skin is warm. Capillary Refill: Capillary refill takes less than 2 seconds. Neurological: General: No focal deficit present. Mental Status: She is alert. Psychiatric: Mood and Affect: Mood normal. Neurological Exam Mental Status Alert. Ortho Exam ED Course & MDM Medications sodium chloride flush 10 mL (has no administration in time range) sodium chloride 0.9% (NS) bolus (0 mLs intravenous Stopped 06/04/242052) iopamidoL (ISOVUE-370) 370 mg iodine /mL (76 %) injection 75 mL (75 mLs intravenous Given 06/04/241927) Results for orders placed or performed during the hospital encounter of 06/04/24 Urinalysis, Reflex Microscopic and Culture If Indicated Result Value Ref Range Color, UA Colorless Clarity, UA Clear Clear Specific Amity, UA 1.006 1.005 - 1.030 pH, UA 6.5 6.0 - 8.0 Leukocytes, UA Negative Negative Nitrite, UA Negative Negative Protein, UA Negative Negative Glucose, UA Normal Normal Ketones, UA Negative Negative Bilirubin, UA Negative Negative Blood, UA Negative Negative Urobilinogen, UA Normal Normal Specimen Source Urine, Clean Catch CBC with Auto Diff Result Value Ref Range WBC 8.0 4.0 - 10.0 K/??L RBC 3.95 3.93 - 5.22 M/??L Hemoglobin 11.3 11.2 - 15.7 GM/DL Hematocrit 32.9 (L) 34.1 - 44.9 % MCV 83 79 - 95 fL MCH 28.6 25.6 - 32.2 pg MCHC 34.3 32.2 - 35.5 GM/DL RDW 12.8 11.7 - 14.4 % Platelets 318 140 - 375 K/CU MM MPV 8.2 (L) 9.4 - 12.3 fL % Neutros 72 (H) 34 - 71 % % Lymphs 19 19 - 52 % % Monos 5 5 - 13 % % Eos 4 1 - 6 % % Baso 1 0 - 1 % NRBC Absolute <0.01 0 - 0.012 K/ul # Neutros 5.76 1.56 - 6.13 K/??L # Lymphs 1.51 1.18 - 3.74 K/??L # Monos 0.39 0.24 - 0.86 K/??L # Eos 0.28 0.04 - 0.36 K/??L # Baso 0.06 0.01 - 0.08 K/??L Immature Granulocytes-Relative 0.20 0.01 - 0.43 % # IG <0.03 0.00 - 0.03 K/uL Lactic Acid with reflex (SJ) Result Value Ref Range Lactic Acid Level (mmol/L) 1.0 0.5 - 2.2 mmol/L Comprehensive metabolic panel Result Value Ref Range Sodium 124 (L) 136 - 145 meq/L Potassium 3.6 3.4 - 5.1 meq/L Chloride 92 (L) 98 - 112 meq/L CO2 24 22 - 29 meq/L Calcium 8.8 8.4 - 10.2 mg/dL Glucose 99 74 - 100 mg/dL BUN <3.0 (L) 7.0 - 18.7 mg/dL Creatinine 0.73 0.57 - 1.11 mg/dL BUN/Creatinine <4 (L) 8 - 20 eGFR (mL/min/1.73m2) 104 >=60 mL/min/1.73m2 Albumin 3.8 3.5 - 5.0 g/dL Alkaline Phosphatase 192 (H) 40 - 150 U/L ALT 18 <=34 U/L AST 24 11 - 34 U/L Total Bilirubin 0.5 0.2 - 1.2 mg/dL Protein, Total 7.7 6.4 - 8.3 g/dL Globulin 3.9 2.5 - 4.1 g/dL Anion Gap 12 4 - 12 A/G Ratio 1.0 0.7 - 1.9 Osmolality Calc <246.2 mOsm/kg CT ABDOMEN/PELVIS WITH IV CONTRAST Final Result Fluid collection in central pelvis may represent seroma or abscess. Images reviewed, interpreted, and dictated by Dr. John Edouard. Transcribed by Terrance Ascencio. ED Course as of 06/04/242055Jun 04, 20241939 Sodium(!): 124 She was Na 126 10 days ago. [SUZANNE] 2020 Abdomen: The gallbladder has been removed. Solid organs and ureters are within normal limits. Again seen are postoperative changes from subtotal colectomy and right lower quadrant ileostomy. The ileostomy has a normal appearance. A 10.2 x 4.8 cm fluid collection has developed in the central pelvis. Although no air is within this fluid collection is seen, an abscess cannot be excluded. Pelvis: The urinary bladder is normal. The uterus and ovaries are absent. There is no pelvic or abdominal ascites, adenopathy, or acute osseous abnormality. IMPRESSION: Fluid collection in central pelvis may represent seroma or abscess. [SUZANNE] ED Course User Index [SUZANNE] Chata Galindo PA-C Procedures Medical Decision Making Differential dx Abdomen pain/post op pain/drainage from incision/abscess Demetra Diaz is a 44 y.o. female with has a past medical history of Anxiety, Chest pain, CPAP (continuous positive airway pressure) dependence, Depression, Diabetes (HCC), Dizziness, WIGGINS (dyspnea on exertion), Edema, GERD (gastroesophageal reflux disease), HLD (hyperlipidemia), HTN (hypertension), H ypothyroidism, IBS (irritable bowel syndrome), Migraines, BETTY (obstructive sleep apnea), PTSD (post-traumatic stress disorder), Tachycardia, and Vitamin D deficiency. who is presenting with increase abdomen pain and drainage from incision site today. Normal ileostomy output. No fever.. ROS is negative except as documented in the HPI. Exam patient appears well nontoxic heart lungs are clear to auscultation abdomen mild left lower abdomen tenderness. There is output from the ileostomy. There is acenter lower abdomen surgical incision mild redness in surgical incision no active drainage the bandages on it appears dry. Patient is found to have a sodium level is 125. She is ordered 1 L normal sa line. CT abdomen pelvis ordered. The CT per rad has 10.2cm x 4.8cm fluid collection abscess vs seroma central abdomen. WBC normal. LA normal. Patient had surgery on May [address] Diaz. Patient will be admitted. Amount and/or Complexity of Data Reviewed Labs: Decision-making details documented in ED Course. Assessment & Plan Clinical Impression Diagnosis Comment Added By Time Added Abdominal pain Chata Galindo PA-C 06/04/2024 8:49 PM Abdominal wall seroma, initial encounter Chata Galindo PA-C 06/04/2024 8:50 PM Hyponatremia Chata Galindo PA-C 06/04/2024 8:50 PM Disposition Admit [3] - 06/04/2024 8:55 PM New Prescriptions No medications on file Associated attestation - Mekhi Santana DO - 06/04/2024 9:49 PM CDT I saw the patient [id number]. I performed a substantive portion of the MDM. My differential diagnosis includes post operative complication, intraabdominal abscess, colitis, seroma, dehydration, other. I have personally interpreted the CT A/P W/IV contrast mages which showedno evidence of bowerl obstruction, large fluid collection in pelvis. Workup shows likely seroma postoperatively versus early postoperative infection. Very low suspicionfor intra-abdominal abscess given normal white blood cell count afebrile other. Patient also has multiple significant electrolyte abnormalities including hyponatremia likely secondary to poor p.o. intake and high output ileostomy. Discussed case with hospitalist, patient be admitted for further evaluation medical management. documented in this encounter Plan of Treatment Upcoming Encounters Date Type Department Care Team (Late st Contact Info) Description 07/17/2024 11:00 AM EDT Appointment Wound & Ostomy Therapy [address] [place] [address] 08/28/2024 9:15 AM EDT Office Visit [facility] Urology - [address] [place] [id number] Chandrika Santana, CHIEF PSYCHOLOGY [address] [place] [address] 04/17/2025 8:30 AM EDT Office Visit [facility] Cardiology - [address] [place] [address] Tamara Sow PA-C [address] [facility] [address] [place] [address] documented as of this encounter Procedures Procedure Name Priority Date/Time Associated Diagnosis Comments NOVA GLUCOSE POC Routine 06/05/2024 2:05 PM EDT CBC HEMOGRAM (SJ-BKR) STAT 06/05/2024 3:27 AM EDT COMPREHENSIVE METABOLIC PANEL STAT 06/05/2024 3:27 AM EDT BLOOD CULTURE STAT 06/04/2024 9:26 PM EDT BLOOD CULTURE STAT 06/04/2024 9:[address] ABDOMEN/PELVIS WITH IV CONTRAST STAT 06/04/2024 7:32 PM EDT URINALYSIS, REFLEX MICROSCOPIC AND CULTURE IF INDICATED STAT 06/04/2024 7:03 PM EDT CBC W/ AUTO DIFF STAT 06/04/2024 6:31 PM EDT LACTIC ACID WITH REFLEX STAT 06/04/2024 6:31 PM EDT COMPREHENSIVE METABOLIC PANEL STAT 06/04/2024 6:31 PM EDT documented in this encounter Results * Glucose, Nova Meter (06/05/2024 2:05 PM EDT) Pathologist [facility] POC-GLUCOSE 85 70 - 110 mg/dL 06/05/2024 2:07 PM EDT [facility] Comment:In the event of poor peripheral blood flow, venous or arterial blood should be used due to the potential of erroneous results. Road Patcher [phone] 06/05/2024 2:07 PM EDT [facility] Blood WHOLE BLOOD / Unknown 06/05/2024 2:05 PM EDT 06/05/2024 2:07 PM EDT Narrative [facility] - 06/05/2024 2:[address] Patcher ID is - [id number] us Owen Tellez MD POINT OF CARE TEST ORDERABLES Final Result [facility] [address] [phone] * (ABNORMAL) Comprehensive Metabolic Panel (06/05/2024 3:27 AM EDT) Sodium 132(L) 136 - 145 meq/L 06/05/2024 3:56 AM EDT [facility] Potassium 3.5 3.4 - 5.1 meq/L 06/05/2024 3:56 AM EDT [facility] Chloride 101 98 - 112 meq/L 06/05/2024 3:56 AM EDT [facility] CO2 26 22 - 29 meq/L 06/05/2024 3:56 AM EDT [facility] Calcium 8.4 8.4 - 10.2 mg/dL 06/05/2024 3:56 AM EDT [facility] Glucose 91 74 - 100 mg/dL 06/05/2024 3:56 AM EDT [facility] BUN 3.3(L) 7.0 - 18.7 mg/dL 06/05/2024 3:56 AM EDT [facility] Creatinine 0.69 0.57 - 1.11 mg/dL 06/05/2024 3:56 AM EDT [facility] BUN/Creatinine 5(L) 8 - 20 06/05/2024 3:56 AM EDT [facility] eGFR (mL/min/1.73m2) 109 >=60 mL/min/1. 73m2 06/05/2024 3:56 AM EDT [facility] Albumin 3.3(L) 3.5 - 5.0 g/dL 06/05/2024 3:56 AM EDT [facility] Alkaline Phosphatase 166(H) 40 - 150 U/L 06/05/2024 3:56 AM EDT [facility] ALT 20 <=34 U/L 06/05/2024 3:56 AM EDT [facility] Comment: ALT2 reagent used for testing does not contain P5P supplementation and therefore may miss ALT elevations in patients with B6 deficiency. This population may be as high as 10% in the [place], with risk factors including malabsorption, drug interactions, and alcoholic hepatitis. AST 19 11 - 34 U/L 06/05/2024 3:56 AM EDT [facility] Comment: AST2 reagent used for testing does not contain P5P supplementation and therefore may miss AST elevations in patients with B6 deficiency. This population may be as high as 10% in the [place], with risk factors including malabsorption, drug interactions, and alcoholic hepatitis. Total Bilirubin 0.5 0.2 - 1.2 mg/dL 06/05/2024 3:56 AM EDT [facility] Protein, Total 6.5 6.4 - 8.3 g/dL 06/05/2024 3:56 AM EDT [facility] Globulin 3.2 2.5 - 4.1 g/dL 06/05/2024 3:56 AM EDT [facility] Anion Gap 9 4 - 12 06/05/2024 3:56 AM EDT [facility] A/G Ratio 1.0 0.7 - 1.9 06/05/2024 3:56 AM EDT [facility] Osmolality Calc 260.8 mOsm/kg 3:56 AM EDT [facility] Blood Venipuncture / Unknown 06/05/2024 3:27 AM EDT 06/05/2024 3:29 AM EDT us Selvin Hernandez MD LAB BLOOD ORDERABLES Final Res ult [facility] [address] [phone] * (ABNORMAL) CBC - Hemogram (SJ-BKR) (06/05/2024 3:27 AM EDT) WBC 7.5 4.0 - 10.0 K/ L 06/05/2024 3:33 AM EDT [facility] RBC 3.67(L) 3.93 - 5.22 M/ L 06/05/2024 3:33 AM EDT [facility] Hemoglobin 10.5(L) 11.2 - 15.7 GM/DL 06/05/2024 3:33 AM EDT [facility] Hematocrit 31.0(L) 34.1 - 44.9 % 06/05/2024 3:33 AM EDT [facility] MCV 85 79 - 95 fL 06/05/2024 3:33 AM EDT [facility] MCH 28.6 25.6 - 32.2 pg 06/05/2024 3:33 AM EDT [facility] MCHC 33.9 32.2 - 35.5 GM/DL 06/05/2024 3:33 AM EDT [facility] RDW 12.9 11.7 - 14.4 % 06/05/2024 3:33 AM EDT [facility] Platelets 284 140 - 375 K/CU MM 06/05/2024 3:33 AM EDT [facility] MPV 8.3(L) 9.4 - 12.3 fL 06/05/2024 3:33 AM EDT [facility] Blood Venipuncture / Unknown 06/05/2024 3:27 AM EDT 06/05/2024 3:29 AM EDT Selvin Hernandez MD LAB BLOOD ORDERABLES Final Res ult Performing Organization Address City/State/[facility] Co de Phone Number [facility] [address] [place] [address] * Blood Culture (06/04/2024 9:26 PM EDT) Result No growth in 5 days 06/09/2024 11:00 PM EDT [facility] Blood ENTIRE RIGHT UPPER ARM / Unknown Venipuncture / Unknown 06/04/2024 9:26 PM EDT 06/04/2024 9:32 PM EDT Narrative [facility] - 06/09/2024 11:00 PM EDT Blood volume is not within specification. May compromise patient blood culture results. us Selvin Hernandez MD MICROBIOLOGY - GENERAL ORDERAB LES Final Result Performing Organization Address City/[facility]/ZIP Co de Phone Number [facility] [address] [phone] * Blood Culture (06/04/2024 9:26 PM EDT) Result No growth in 5 days 06/09/2024 11:00 PM EDT [facility] Blood Venipuncture / Unknown 06/04/2024 9:26 PM EDT 06/04/2024 9:32 PM EDT Narrative [facility] - 06/09/2024 11:00 PM EDT Blood volume is not within specification. May compromise patient blood culture results. Selvin Hernandez MD MICROBIOLOGY - GENERAL ORDERAB LES Final Result Performing Organization Address [facility] Co de Phone Number [facility] [address] [phone] * CT ABDOMEN/PELVIS WITH IV CONTRAST (06/04/2024 7:32 PM EDT) Anatomical Region Laterality Modality Abdomen, Pelvis Computed Tomogra phy (CT) 06/04/2024 8:06 PM EDT Impressions 06/04/2024 8:09 PM EDT Fluid collection in central pelvis may represent seroma or abscess. Images reviewed, interpreted, and dictated by Dr. John Edouard. Transcribed by Terrance Ascencio. Narrative 06/04/2024 8:[address] OF THE ABDOMEN AND PELVIS HISTORY: Pain from ileostomy site PROCEDURE: Routine axial images were obtained from the lung bases to the pubic symphysis following IV and oral contrast administration. This study was performed with techniques to keep radiation doses low as reasonably achievable, (ALARA). Individualized dose reduction techniques using automated exposure control or adjustment of mA and/or kV according to the patient size were employed. COMPARISON: May 24, 2024 FINDINGS: Abdomen: The gallbladder has been removed. Solid organs and ureters are within normal limits. Again seen are postoperative changes from subtotal colectomy and right lower quadrant ileostomy. The ileostomy has a normal appearance. A 10.2 x 4.8 cm fluid collection has developed in the central pelvis. Although no air is within this fluid collection is seen, an abscess cannot be excluded. Pelvis: The urinary bladder is normal. The uterus and ovaries are absent. There is no pelvic or abdominal ascites, adenopathy, or acute osseous abnormality. Procedure Note John Edouard MD - 06/04/2024 CT OF THE ABDOMEN AND PELVIS HISTORY: Pain from ileostomy site PROCEDURE: Routine axial images were obtained from the lung bases to the pubic symphysis following IV and oral contrast administration. This study was performed with techniques to keep radiation doses low as reasonably achievable, (ALARA). Individualized dose reduction techniques using automated exposure control or adjustment of mA and/or kV according to the patient size were employed. COMPARISON: May 24, 2024 FINDINGS: Abdomen: The gallbladder has been removed. Solid organs and ureters are within normal limits. Again seen are postoperative changes from subtotal colectomy and right lower quadrant ileostomy. The ileostomy has a normal appearance. A 10.2 x 4.8 cm fluid collection has developed in the central pelvis. Although no air is within this fluid collection is seen, an abscess cannot be excluded. Pelvis: The urinary bladder is normal. The uterus and ovaries are absent. There is no pelvic or abdominal ascites, adenopathy, or acute osseous abnormality. IMPRESSION: Fluid collection in central pelvis may represent seroma or abscess. Images reviewed, interpreted, and dictated by Dr. John Edouard. Transcribed by Terrance Ascencio. Kayla Marie APRN [facility] ORDERABLES Final Resul t * Urinalysis, Reflex Microscopic and Culture If Indicated (06/04/2024 7:03 PM EDT) Color, UA Colorless 06/04/2024 7:08 PM EDT [facility] Clarity, UA Clear Clear 06/04/2024 7:08 PM EDT [facility] Specific Amity, UA 1.006 1.005 - 1.030 06/04/2024 7:08 PM EDT [facility] pH, UA 6.5 6.0 - 8.0 06/04/2024 7:08 PM EDT [facility] Leukocytes, UA Negative Negative 06/04/2024 7:08 PM EDT [facility] Nitrite, UA Negative Negative 06/04/2024 7:08 PM EDT [facility] Protein, UA Negative Negative 06/04/2024 7:08 PM EDT [facility] Glucose, UA Normal Normal 06/04/2024 7:08 PM EDT [facility] Ketones, UA Negative Negative 06/04/2024 7:08 PM EDT [facility] Bilirubin, UA Negative Negative 06/04/2024 7:08 PM EDT [facility] Blood, UA Negative Negative 06/04/2024 7:08 PM EDT [facility] Urobilinogen, UA Normal Normal 06/04/2024 7:08 PM EDT [facility] Specimen Source Urine, Clean Catch 06/04/2024 7:08 PM EDT [facility] Urine URINE SPECIMEN COLLECTION, CLEAN CATCH / Unknown 06/04/2024 7:03 PM EDT 06/04/2024 7:03 PM EDT Kayla Marie APRN URINE ORDERABLES Final Result [facility] [address] [place] [address] * (ABNORMAL) Comprehensive metabolic panel (06/04/2024 6:31 PM EDT) Sodium 124(L) 136 - 145 meq/L 06/04/2024 7:20 PM EDT [facility] Potassium 3.6 3.4 - 5.1 meq/L 06/04/2024 7:20 PM EDT [facility] Chloride 92(L) 98 - 112 meq/L 06/04/2024 7:20 PM EDT [facility] CO2 24 22 - 29 meq/L 06/04/2024 7:20 PM EDT [facility] Calcium 8.8 8.4 - 10.2 mg/dL 06/04/2024 7:20 PM EDT [facility] Glucose 99 74 - 100 mg/dL 06/04/2024 7:20 PM [facility] BUN <3.0(L) 7.0 - 18.7 mg/dL 06/04/2024 7:20 PM [facility] Creatinine 0.73 0.57 - 1.11 mg/dL 06/04/2024 7:20 PM [facility] BUN/Creatinine <4(L) 8 - 20 06/04/2024 7:20 PM [facility] eGFR (mL/min/1.73m2) 104 >=60 mL/min/1. 73m2 06/04/2024 7:20 PM [facility] Albumin 3.8 3.5 - 5.0 g/dL 06/04/2024 7:20 PM [facility] Alkaline Phosphatase 192(H) 40 - 150 U/L 06/04/2024 7:20 PM [facility] ALT 18 <=34 U/L 06/04/2024 7:20 PM [facility] Comment: ALT2 reagent used for testing does not contain P5P supplementation and therefore may miss ALT elevations in patients with B6 deficiency. This population may be as high as 10% in the [place], with risk factors including malabsorption, drug interactions, and alcoholic hepatitis. AST 24 11 - 34 U/L 06/04/2024 7:20 PM [facility] Comment: AST2 reagent used for testing does not contain P5P supplementation and therefore may miss AST elevations in patients with B6 deficiency. This population may be as high as 10% in the [place], with risk factors including malabsorption, drug interactions, and alcoholic hepatitis. Total Bilirubin 0.5 0.2 - 1.2 mg/dL 06/04/2024 7:20 PM [facility] Protein, Total 7.7 6.4 - 8.3 g/dL 06/04/2024 7:20 PM [facility] Globulin 3.9 2.5 - 4.1 g/dL 06/04/2024 7:20 PM [facility] Anion Gap 12 4 - 12 06/04/2024 7:20 PM [facility] A/G Ratio 1.0 0.7 - 1.9 06/04/2024 7:20 PM EDT [facility] Osmolality Calc <246.2 mOsm/kg 7:20 PM EDT [facility] Blood Venipuncture / Unknown 06/04/2024 6:31 PM EDT 06/04/2024 6:51 PM EDT Narrative [facility] - 06/04/2024 7:20 PM EDT Specimen slightly hemolyzed us Kayla Marie APRN LAB BLOOD ORDERABLES Final Re sult Performing Organization Address City/[facility]/ZIP Co de Phone Number [facility] [address] [phone] * Lactic Acid with reflex (SJ) (06/04/2024 6:31 PM EDT) Lactic Acid Level (mmol/L) 1.0 0.5 - 2.2 mmol/L 06/04/2024 7:18 PM EDT [facility] Blood Venipuncture / Unknown 06/04/2024 6:31 PM EDT 06/04/2024 6:50 PM EDT us Kayla Marie APRN LAB BLOOD ORDERABLES Final Re sult Performing Organization Address City/[facility]/ZIP Co de Phone Number [facility] [address] [phone] * (ABNORMAL) CBC with Auto Diff (06/04/2024 6:31 PM EDT) WBC 8.0 4.0 - 10.0 K/ L 06/04/2024 6:53 PM EDT [facility] RBC 3.95 3.93 - 5.22 M/ L 06/04/2024 6:53 PM EDT [facility] Hemoglobin 11.3 11.2 - 15.7 GM/DL 06/04/2024 6:53 PM EDT [facility] Hematocrit 32.9(L) 34.1 - 44.9 % 06/04/2024 6:53 PM EDT [facility] MCV 83 79 - 95 fL 06/04/2024 6:53 PM EDT [facility] MCH 28.6 25.6 - 32.2 pg 06/04/2024 6:53 PM EDT [facility] MCHC 34.3 32.2 - 35.5 GM/DL 06/04/2024 6:53 PM EDT [facility] RDW 12.8 11.7 - 14.4 % 06/04/2024 6:53 PM EDT [facility] Platelets 318 140 - 375 K/CU MM 06/04/2024 6:53 PM EDT [facility] MPV 8.2(L) 9.4 - 12.3 fL 06/04/2024 6:53 PM EDT [facility] % Neutros 72(H) 34 - 71 % 06/04/2024 6:53 PM EDT [facility] % Lymphs 19 19 - 52 % 06/04/2024 6:53 PM EDT [facility] % Monos 5 5 - 13 % 06/04/2024 6:53 PM EDT [facility] % Eos 4 1 - 6 % 06/04/2024 6:53 PM EDT [facility] % Baso 1 0 - 1 % 06/04/2024 6:53 PM EDT [facility] NRBC Absolute <0.01 0 - 0.012 K/ul 06/04/2024 6:53 PM EDT [facility] # Neutros 5.76 1.56 - 6.13 K/ L 06/04/2024 6:53 PM EDT [facility] # Lymphs 1.51 1.18 - 3.74 K/ L 06/04/2024 6:53 PM EDT [facility] # Monos 0.39 0.24 - 0.86 K/ L 06/04/2024 6:53 PM EDT [facility] # Eos 0.28 0.04 - 0.36 K/ L 06/04/2024 6:53 PM EDT [facility] # Baso 0.06 0.01 - 0.08 K/ L 06/04/2024 6:53 PM EDT [facility] Immature Granulocytes-Re lative 0.20 0.01 - 0.43 % 06/04/2024 6:53 PM EDT [facility] # IG <0.03 0.00 - 0.03 K/uL 06/04/2024 6:53 PM EDT [facility] Blood Venipuncture / Unknown 06/04/2024 6:31 PM EDT 06/04/2024 6:51 PM EDT Narrative [facility] - 06/04/2024 6:53 PM EDT When CBC w/ Auto Diff is ordered the lab will add a Manual Differential as a quality check at no additional charge if: Lymphocytes greater than seventy five percent with normal or increased WBC Monocytes greater than Fifteen percent Basophil greater than four percent Bands >10% or several immature myeloids are seen on scan Blast? Flag noted Atypical Lymph flag noted Kayla Marie APRN LAB BLOOD ORDERABLES Final Re sult Performing Organization Address City/State/[facility] Co de Phone Number [facility] [address] [phone] documented in this encounter Visit Diagnoses Diagnosis Intra-abdominal fluid collection- Primary Other ascites Abdominal pain Abdominal pain, unspecified site Abdominal wall seroma, initial encounter Hyponatremia Hyposmolality and/or hyponatremia Abdominal pain, unspecified abdominal location Abdominal pain Abdominal pain, unspecified site documented in this encounter Admitting Diagnoses Diagnosis Intra-abdominal fluid collection Other ascites Abdominal pain Abdominal pain, unspecified site documented in this encounter Administered Medications Inactive Administered Medications - up to 3 most recent administrations Medication Order MAR Action Action Date Dose Rate Site acetaminophen (TYLENOL) tablet 1,000 mg 1,000 mg Every 6 hours PRN, oral, fever greater than or equal to 38C, mild pain (1-3), headache, Starting on Mon06/04/24 at 2127, Recommended maximum dose of acetaminophen is 4000 mg from all sources in 24 hours Given 06/05/2024 1:40 AM EDT 1,000 mg ALPRAZolam (XANAX) tablet 1 mg 1 mg 2 times daily, oral, First dose on Mon06/04/24 at 2130 Given 06/05/2024 11:13 AM EDT 1 mg Given 06/04/2024 9:43 PM EDT 1 mg ARIPiprazole (ABILIFY) tablet 10 mg 10 mg Daily, oral, First dose on Mon06/04/24 at 2134 atorvastatin (LIPITOR) tablet 80 mg 80 mg Every Night, oral, First dose on Mon06/04/24 at 0 Given 06/04/2024 9:43 PM EDT 80 mg cyanocobalamin tablet 500 mcg 500 mcg Daily, oral, First dose on Mon06/04/24 at 2129 Given 06/05/2024 11:27 AM EDT 500 mcg desvenlafaxine (PRISTIQ) ER 24 hr tablet 100 mg 100 mg Daily, oral, First dose (after last reorder) on Mon06/04/24 at 2144, * DO NOT CRUSH THIS DOSAGE FORM * Given 06/05/2024 11:26 AM EDT 100 mg dextrose 50% (D50W) injection 25 g 25 g Every 15 min PRN, intravenous, low blood glucose (specify value in prn comments), less than 41 mg/dL or 41-69 mg/dL and unable to take PO, Starting on Mon06/05/24 at 0856, Repeat blood glucose every 15 minutes until blood glucose greater than 70 mg/dL. Call Provider if not resolved after 2 treatments Repeat BS in 1 hour, retime for 1 hour after blood sugar greater than 70 mg/dL If less than 41: Repeat Finger stick within 5 minutes with same machine Send serum glucose level: Do not wait on lab to treat docusate sodium (COLACE) capsule 100 mg 100 mg 2 times daily PRN, oral, constipation, Starting on Mon06/04/24 at 7, Bowel Regimen - for prevention of constipation. gabapentin (NEURONTIN) capsule 300 mg 300 mg Every Night, oral, First dose on Mon06/04/24 at 2130 Given 06/04/2024 9:44 PM EDT 300 mg glucagon injection 1 mg 1 mg Every 15 min PRN, intraMUSCULAR, low blood glucose (specify value in prn comments), For Patients without IV access and blood glucose 41-69 mg/dL AND unable to take PO OR Less than 41 mg/dL, Starting on Mon06/05/24 at 0856, Caution: glucagon . Roll patient on their side when administering to prevent aspiration. Call Provider if not resolved after 2 treatments Repeat BS in 1 hour, retime for 1 hour after blood sugar greater than 70 mg/dL glucose chew tab 16 g 16 g Every 15 min PRN, oral, low blood glucose (specify value in prn comments), 41-69 mg/dL, Starting on Mon06/05/24 at 0856, For Patients who can take oral AND [...] after blood sugar greater than 70 mg/dL hydrALAZINE (APRESOLINE) injection 10 mg 10 mg Every 4 hours PRN, intravenous, hypertension (sbp greater than 140), Starting on Mon06/04/24 at 2127, Hold if SBP < 100 mmHg, DBP < 50 mmHg, or patient is on pressor. Look-alike/Sound-alike medication icosapent ethyL (VASCEPA) capsule 2 g 2 g 2 times daily, oral, First dose on Mon06/04/24 at 2130, Do not crush, chew, or split. Given 06/05/2024 11:12 AM EDT 2 g Given 06/04/2024 9:44 PM EDT 2 g insulin lispro (HUMALOG, ADMELOG) injection 0-18 Units 0-18 Units 4 times daily (before meals and nightly), subcutaneous, First dose on Mon06/05/24 at 1130, If Blood Sugar is less than 180 beteween [id number], DO NOT give corrective insulin unless otherwise [...] LESS than [70] and GREATER than [400] iopamidoL (ISOVUE-370) 370 mg iodine /mL (76 %) injection 75 mL 75 mL IMG once as needed, intravenous, contrast, Starting on Mon06/04/24 at 1923, For 1 dose, Intra-op Given 06/04/2024 7:28 PM EDT 75 mLs isosorbide mononitrate (IMDUR) 24 hr tablet 30 mg 30 mg Daily, oral, First dose on Mon06/04/24 at 2129 Given 06/05/2024 2:01 PM EDT 30 mg lamoTRIgine (LaMICtal) tablet 150 mg 150 mg 2 times daily, oral, First dose on Mon06/04/24 at 2129 Given 06/05/2024 11:25 AM EDT 150 mg Given 06/04/2024 10:39 PM EDT 150 mg levothyroxine (SYNTHROID) tablet 125 mcg 125 mcg Every morning on an empty stomach, oral, First dose on Mon06/05/24 at 0630, ADMINISTER ON AN EMPTY STOMACH Given 06/05/2024 6:17 AM EDT 125 mcg LORazepam (ATIVAN) tablet 1 mg 1 mg Every 4 hours PRN, oral, anxiety, Starting on Mon06/04/24 at 2125 melatonin tablet 5 mg 5 mg Every Night PRN, oral, insomnia, Starting on Mon06/04/24 at 2125 metoprolol succinate (TOPROL-XL) 24 hr tablet 50 mg 50 mg 2 times daily, oral, First dose on Mon06/04/24 at 2129, Hold for systolic BP < 90 mmHg or for HR < 50 BPM Do Not Crush or Chew (Tablet may be split) Given 06/05/2024 2:01 PM EDT 50 mg mirabegron (MYRBETRIQ) 24 hr tablet 50 mg 50 mg Daily, oral, First dose on Mon06/04/24 at 2129, *DO NOT CRUSH THIS DOSAGE FORM* Given 06/05/2024 11:26 AM EDT 50 mg morphine injection 2 mg 2 mg Every 4 hours PRN, intravenous, moderate pain (4-6), severe pain (7-10), Starting on Mon06/04/24 at 2127, If inadequate response (less than 50% reduction in pain score) within 60 minutes, proceed to next-line agent for same PRN reason or contact provider if no further options ordered. naloxone (NARCAN) injection 0.2 mg 0.2 mg Every 2 min PRN, intravenous, opioid reversal, respiratory depression, Starting on Mon06/04/24 at 2126, Give for respiratory rate less than 10 breaths/min or if patient is difficult to arouse. Max dose = 10 mg. Call provider. ondansetron (ZOFRAN) injection 4 mg 4 mg Every 6 hours PRN, intravenous, nausea, vomiting, Starting on Mon06/04/24 at 2125, Give IV if patient is unable to take orally. 1st line If inadequate response within 60 minutes, proceed to next-line agent for same PRN reason or contact provider if no further options ordered. For IV push, give over 2 - 5 minutes. ondansetron (ZOFRAN-ODT) disintegrating tablet 4 mg 4 mg Every 6 hours PRN, oral, nausea, vomiting, Starting on Mon06/04/24 at 2125, 1st line. If inadequate response within 60 minutes, proceed to next-line agent for same PRN reason or contact provider if no further options ordered. pantoprazole (PROTONIX) EC tablet 40 mg 40 mg Daily, oral, First dose on Mon06/04/24 at 2130, Therapeutic Interchange for Proton Pump Inhibitors. * DO NOT CRUSH THIS DOSAGE FORM * Given 06/05/2024 11:13 AM EDT 40 mg piperacillin-tazobactam (ZOSYN) 4.5 g in sodium chloride 0.9 % (NS) MBP 100 mL IVPB 4.5 g Every 6 hours scheduled, intravenous, Administer over 30 Minutes, First dose on Mon06/05/24 at 0000, Please choose an indication: Intra-abdominal Infection, Please choose an indication: Surgical Prophylaxis IVPB Started 06/05/2024 11:12 AM EDT 4.5 g 200 mL/hr IVPB Started 06/05/2024 5:57 AM EDT 4.5 g 200 mL/hr IVPB Started 06/04/2024 11:44 PM EDT 4.5 g 200 mL/hr potassium chloride IVPB 10 mEq in 100 mL sterile water (premix) 10 mEq Every hour PRN, intravenous, Administer over 60 Minutes, for potassium less than or equal to 3.4 mmol/L, Starting on Mon06/04/24 at 2126, Total Dose 40 mEq, use only if unable to administer PO. Max Rate 10mEq/hr. If potassium is replaced per protocol order, recheck 1 hour after replacement and the next morning. prazosin (MINIPRESS) capsule 6 mg 6 mg Every Night, oral, First dose (after last reorder) on Mon06/04/24 at 2144 Given 06/04/2024 10:40 PM EDT 6 mg sodium chloride 0.9 % infusion 75 mL/hr Continuous, intravenous, Starting on Mon06/04/24 at 2129 New Bag 06/05/2024 9:00 AM EDT 75 mL/hr 75 mL/hr New Bag 06/04/2024 9:44 PM EDT 100 mL/hr 100 mL/hr sodium chloride 0.9% (NS) bolus 1,000 mL Once, intravenous, Administer over 60 Minutes, On Mon06/04/24 at 1855, For 1 dose New Bag 06/04/2024 6:57 PM EDT 1,000 mLs 1000 mL/hr sodium chloride flush 10 mL 10 mL As needed, intravenous, line care, Line care for flush, Starting on Mon06/04/24 at 1827, For 30 doses documented in this encounter Active and Recently Administered Medications Times are shown in EDT. Scheduled Medication Order 06/03/2024 06/04/2024 06/05/2024 ALPRAZolam (XANAX) tablet 1 mg 1 mg 2 times daily, oral, First dose on Mon06/04/24 at 2130 2143 (Given - Provider: Ceci Boswell) 1113 (Given - Provider: Lester Persaud, RN) amoxicillin-clavulanate (AUGMENTIN) 875-125 mg per tablet 1 tablet 1 tablet 2 times daily with breakfast and dinner, oral, First dose on Mon06/05/24 at 1700, Please choose an indication: Skin/Soft Tissue Infection ARIPiprazole (ABILIFY) tablet 10 mg 10 mg Daily, oral, First dose on Mon06/04/24 at 2135 2134 (Not Given - Provider: Ceci Boswell - Reason: Patient/family refused - Comment: Pt. reports they no longer take this medication.) 1128 (Not Given - Provider: Lester Persaud RN - Reason: Patient/family refused)1201 (Not Given - Provider: Julia Lucio - Reason: Patient/family refused) armodafiniL tab 1 tablet 1 tablet Daily, oral, First dose on Mon06/04/24 at 2130 2244 (Not Given - Provider: Iza Gan - Reason: Dose previously given - Comment: Pt took med this morning) 1201 (Not Given - Provider: Julia Lucio - Reason: Medication/ Dose Unavailable) atorvastatin (LIPITOR) tablet 80 mg 80 mg Every Night, oral, First dose on Mon06/04/24 at 2129 214 (Given - Provider: Ceci Boswell) cyanocobalamin tablet 500 mcg 500 mcg Daily, oral, First dose on Mon06/04/24 at 2129 2133 (Not Given - Provider: Ceci Boswell - Reason: Contraindicated - Comment: Pt. took this AM) 1127 (Given - Provider: Lester Persaud RN) desvenlafaxine (PRISTIQ) ER 24 hr tablet 100 mg 100 mg Daily, oral, First dose (after last reorder) on Mon06/04/24 at 2145, * DO NOT CRUSH THIS DOSAGE FORM * 2239 (Not Given - Provider: Iza Gan - Reason: Dose previously given - Comment: Patient took dose this morning) 1126 (Given - Provider: Lester Persaud RN) gabapentin (NEURONTIN) capsule 300 mg 300 mg Every Night, oral, First dose on Mon06/04/24 at 2132143 (Given - Provider: Ceci Boswell) icosapent ethyL (VASCEPA) capsule 2 g 2 g 2 times daily, oral, First dose on Mon06/04/24 at 213, Do not crush, chew, or split. 2143 (Given - Provider: Ceci Boswell) 1112 (Given - Provider: Lester Persaud RN) insulin lispro (HUMALOG, ADMELOG) injection 0-18 Units 0-18 Units 4 times daily (before meals and nightly), subcutaneous, First dose on Mon06/05/24 at 1130, If Blood Sugar is less than 180 beteween [id number], DO NOT give corrective insulin unless otherwise [...] LESS than [70] and GREATER than [400] 1406 (Not Given - Provider: Lester Persaud RN - Reason: Order parameters not met - Comment: FSBS 85) isosorbide mononitrate (IMDUR) 24 hr tablet 30 mg 30 mg Daily, oral, First dose on Mon06/04/24 at 2129 2134 (Not Given - Provider: Ceci Boswell - Reason: Contraindicated - Comment: Pt. took this AM) 1400 (Given - Provider: Lester Persaud RN) lamoTRIgine (LaMICtal) tablet 150 mg 150 mg 2 times daily, oral, First dose on Mon06/04/24 at 2129 2238 (Given - Provider: Iza Gan) 1125 (Given - Provider: Lester Persaud RN) levothyroxine (SYNTHROID) tablet 125 mcg 125 mcg Every morning on an empty stomach, oral, First dose on Mon06/05/24 at 0630, ADMINISTER ON AN EMPTY STOMACH 0617 (Given - Provider: Iza Gan) metoprolol succinate (TOPROL-XL) 24 hr tablet 50 mg 50 mg 2 times daily, oral, First dose on Mon06/04/24 at 2129, Hold for systolic BP < 90 mmHg or for HR < 50 BPM Do Not Crush or Chew (Tablet may be split) 2142 (Not Given - Provider: Ceci Boswell - Reason: Patient/family refused) 140 (Given - Provider: Lester Persaud, RAYSA) mirabegron (MYRBETRIQ) 24 hr tablet 50 mg 50 mg Daily, oral, First dose on Mon06/04/24 at 2129, *DO NOT CRUSH THIS DOSAGE FORM* 2134 (Not Given - Provider: Ceci Boswell - Reason: Contraindicated - Comment: Pt. took this AM) 1126 (Given - Provider: Lester Persaud, RN) pantoprazole (PROTONIX) EC tablet 40 mg 40 mg Daily, oral, First dose on Mon06/04/24 at 2130, Therapeutic Interchange for Proton Pump Inhibitors. * DO NOT CRUSH THIS DOSAGE FORM * 2135 (Not Given - Provider: Ceci Boswell - Reason: Contraindicated - Comment: Pt. took this AM) 1113 (Given - Provider: Lester Persaud RN) piperacillin-tazobactam (ZOSYN) 4.5 g in sodium chloride 0.9 % (NS) MBP 100 mL IVPB (CANCELED) 4.5 g Every 6 hours scheduled, intravenous, Administer over 30 Minutes, First dose on Mon06/05/24 at 0000, Please choose an indication: Intra-abdominal Infection, Please choose an indication: Surgical Prophylaxis 2343 (IVPB Started - Provider: Iza Gan)2344 (IVPB Started - Provider: Iza Gan) 0052 (Stopped - Provider: Iza Gan)0557 (IVPB Started - Provider: Iza Gan)0651 (Stopped - Provider: Iza Gan)1112 (IVPB Started - Provider: Lester Persaud RN)1430 (Stopped - Provider: Chas Steele) prazosin (MINIPRESS) capsule 6 mg 6 mg Every Night, oral, First dose (after last reorder) on Mon06/04/24 at 2145 2240 (Given - Provider: Iza Gan) rimegepant TbDL 1 tablet 1 tablet Every other day, oral, First dose on Mon06/05/24 at 0900 1408 (Not Given - Provider: Lester Persaud RN - Reason: Medication/ Dose Unavailable - Comment: patient does not have with her and it is not on the hospital's formulary) Saccharomyces boulardii (FLORASTOR) capsule 250 mg 250 mg Daily, oral, First dose on Mon06/05/24 at 1415 1415 (Due) sodium chloride 0.9% (NS) bolus (COMPLETED) 1,000 mL Once, intravenous, Administer over 60 Minutes, On Mon06/04/24 at 1855, For 1 dose 1857 (New Bag - Provider: Ceci Boswell)2052 (Stopped - Provider: Ceci Boswell) Continuous Medication Order 06/03/2024 06/04/2024 06/05/2024 sodium chloride 0.9 % infusion 75 mL/hr Continuous, intravenous, Starting on Mon06/04/24 at 2130 2144 (New Bag - Provider: Ceci Boswell) 0900 (New Bag - Provider: Lester ePrsaud RN)1441 (Stopped - Provider: Chas Steele) PRN Medication Order 06/03/2024 06/04/2024 06/05/2024 acetaminophen (TYLENOL) tablet 1,000 mg 1,000 mg Every 6 hours PRN, oral, fever greater than or equal to 38C, mild pain (1-3), headache, Starting on Mon06/04/24 at 2126, Recommended maximum dose of acetaminophen is 4000 mg from all sources in 24 hours 0140 (Given - Provid er: Iza Gan) dextrose 50% (D50W) injection 25 g 25 g Every 15 min PRN, intravenous, low blood glucose (specify value in prn comments), less than 41 mg/dL or 41-69 mg/dL and unable to take PO, Starting on Mon06/05/24 at 0856, Repeat blood glucose every 15 minutes until blood glucose greater than 70 mg/dL. Call Provider if not resolved after 2 treatments Repeat BS in 1 hour, retime for 1 hour after blood sugar greater than 70 mg/dL If less than 41: Repeat Finger stick within 5 minutes with same machine Send serum glucose level: Do not wait on lab to treat docusate sodium (COLACE) capsule 100 mg 100 mg 2 times daily PRN, oral, constipation, Starting on Mon06/04/24 at 2127, Bowel Regimen - for prevention of constipation. glucagon injection 1 mg 1 mg Every 15 min PRN, intraMUSCULAR, low blood glucose (specify value in prn comments), For Patients without IV access and blood glucose 41-69 mg/dL AND unable to take PO OR Less than 41 mg/dL, Starting on Mon06/05/24 at 0856, Caution: glucagon . Roll patient on their side when administering to prevent aspiration. Call Provider if not resolved after 2 treatments Repeat BS in 1 hour, retime for 1 hour after blood sugar greater than 70 mg/dL glucose chew tab 16 g 16 g Every 15 min PRN, oral, low blood glucose (specify value in prn comments), 41-69 mg/dL, Starting on Mon06/05/24 at 0856, For Patients who can take oral AND [...] after blood sugar greater than 70 mg/dL hydrALAZINE (APRESOLINE) injection 10 mg 10 mg Every 4 hours PRN, intravenous, hypertension (sbp greater than 140), Starting on Mon06/04/24 at 2126, Hold if SBP < 100 mmHg, DBP < 50 mmHg, or patient is on pressor. Look-alike/Sound-alike medication iopamidoL (ISOVUE-370) 370 mg iodine /mL (76 %) injection 75 mL (COMPLETED) 75 mL IMG once as needed, intravenous, contrast, Starting on Mon06/04/24 at 1922, For 1 dose, Intra-op 1927 (Given - Provider: Sarah Underwood) LORazepam (ATIVAN) tablet 1 mg 1 mg Every 4 hours PRN, oral, anxiety, Starting on Mon06/04/24 at 2125 melatonin tablet 5 mg 5 mg Every Night PRN, oral, insomnia, Starting on Mon06/04/24 at 2125 morphine injection 2 mg 2 mg Every 4 hours PRN, intravenous, moderate pain (4-6), severe pain (7-10), Starting on Mon06/04/24 at 2126, If inadequate response (less than 50% reduction in pain score) within 60 minutes, proceed to next-line agent for same PRN reason or contact provider if no further options ordered. naloxone (NARCAN) injection 0.2 mg 0.2 mg Every 2 min PRN, intravenous, opioid reversal, respiratory depression, Starting on Mon06/04/24 at 2126, Give for respiratory rate less than 10 breaths/min or if patient is difficult to arouse. Max dose = 10 mg. Call provider. ondansetron (ZOFRAN) injection 4 mg(Linked Group 1) 4 mg Every 6 hours PRN, intravenous, nausea, vomiting, Starting on Mon06/04/24 at 2125, Give IV if patient is unable to take orally. 1st line If inadequate response within 60 minutes, proceed to next-line agent for same PRN reason or contact provider if no further options ordered. For IV push, give over 2 - 5 minutes. ondansetron (ZOFRAN-ODT) disintegrating tablet 4 mg(Linked Group 1) 4 mg Every 6 hours PRN, oral, nausea, vomiting, Starting on Mon06/04/24 at 2125, 1st line. If inadequate response within 60 minutes, proceed to next-line agent for same PRN reason or contact provider if no further options ordered. potassium chloride IVPB 10 mEq in 100 mL sterile water (premix) 10 mEq Every hour PRN, intravenous, Administer over 60 Minutes, for potassium less than or equal to 3.4 mmol/L, Starting on Mon06/04/24 at 2125, Total Dose 40 mEq, use only if unable to administer PO. Max Rate 10mEq/hr. If potassium is replaced per protocol order, recheck 1 hour after replacement and the next morning. simethicone (MYLICON) chewable tablet 80 mg 80 mg Every 6 hours PRN, oral, gas pain, flatulence, Starting on Mon06/04/24 at 2123 sodium chloride flush 10 mL 10 mL As needed, intravenous, line care, Line care for flush, Starting on Mon06/04/24 at 1827, For 30 doses Linked Groups Order Group 1: ondansetron (ZOFRAN-ODT) disintegrating tablet 4 mgJump to med 4 mg Every 6 hours PRN, oral, nausea, vomiting, Starting on Mon06/04/24 at 2125, 1st line. If inadequate response within 60 minutes, proceed to next-line agent for same PRN reason or contact provider if no further options ordered. Or ondansetron (ZOFRAN) injection 4 mgJump to med 4 mg Every 6 hours PRN, intravenous, nausea, vomiting, Starting on Mon06/04/24 at 2125, Give IV if patient is unable to take orally. 1st line If inadequate response within 60 minutes, proceed to next-line agent for same PRN reason or contact provider if no further options ordered. For IV push, give over 2 - 5 minutes. documented in this encounter Care Teams Panel Assembler Relationship Specialty Start Date End Date Deandra Lopez, CHIEF PSYCHOLOGY [address] [place] [address] PCP - General Nurse Practitioner 06/04/24 documented as of this encounter
--- OUTSIDE RECORDS SUMMARY | 2024-06-13 20:17 | XMS_ITS | Encounter Summary ---
Author Organization Healthcare Address [address] [place] [address] Care Team Providers Care Sr Risk Management Consultant Name Role Phone Deandra Lopez APRN Primary Care Provider [phone] Reason for Visit * Reason Comments Wound Check Encounter Details Date Type Department Care Team ([facility] st Contact Info) Description 06/13/2024 8:17 PM EDT - 06/13/2024 10:51 PM EDT Emergency [facility] Emergency Department [address] [place] [address] Stephane Ely MD [address] [place] [address] Abdominal wall seroma, initial encounter (Primary Dx) Discharge Disposition: Home or Self Care Social History Tobacco Use Types Packs/Day Years Used Date Smoking Tobacco: Former Cigarettes Q uit: 11/06/2021 Smokeless Tobacco: Never Comments:Quit Alcohol Use Standard Drinks/Week Comments Never 0 (1 standard drink = 0.6 oz pur e alcohol) PHQ-2 Answer Date Recorded Patient Health Questionnaire-2 Score 0 01/16/2024 PHQ-9 Answer Date Recorded Patient Health Questionnaire-9 Score 0 01/16/2024 Comments No Sex and Gender Information Value Date Recorded Sex Assigned at Female 06/20/2022 11:45 AM EDT Legal Sex Female 7:53 PM EDT Gender Identity Female 06/20/2022 11:45 AM EDT Sexual Orientation Straight 06/20/2022 11 :45 AM EDT documented as of this encounter Last Filed Vital Signs Vital Sign Reading Time Taken Comments Blood Pressure 141/82 06/13/2024 7:49 PM EDT Pulse 83 06/13/2024 7:49 PM EDT Temperature 36.8 C (98.2 F) 06/13/2024 7:49 PM EDT Respiratory Rate 18 06/13/2024 7:49 PM EDT Oxygen Saturation 100% 06/13/2024 7:49 PM EDT Inhaled Oxygen Concentration - - Weight 83.9 kg (185 lb) 06/13/2024 8:24 PM EDT Height - - Body Mass Index 30.79 03/26/2024 12:53 PM EST documented in this encounter Functional Status * Calculated C-SSRS Risk Score (Lifetime/Recent) Answer Date of Assessment Author No Risk Indicated 06/13/2024 8:25 PM EDT Dre Michelle RN * Question Answer Date of Assessment Author 1. Wish to be (Past 1 Month) No 025 8:25 PM EDT Dre Michelle, RAYSA 2. Non-Specific Active Suici kye Thoughts (Past 1 Month) No 06/13/2024 8:25 PM EDT Dre Michelle RN 6. Suicidal Behavior (Lifetime) No 5 8:25 PM EDT Dre Michelle RN documented as of this encounter Discharge Instructions * Discharge Instructions* Otto Davenport MD - 06/13/2024 10:45 PM EDT You were seen in the emergency department for a pelvic/abdominal wall seroma. Please monitor for signs of infection. These include fever, increased pain, cloudy or yellow drainage. We encourage you to follow up with your colorectal surgeon through [facility]. documented in this encounter Medications at Time of Discharge Aimovig 140 MG/ML solution auto-injector INJECT 1 ML SUBCUTANEOUSLY ONCE EVERY MONTH 5 ALPRAZolam (Xanax) 1 MG tablet Take 1 tablet (1 mg) by mouth 3 times a day. 4 amantadine (Symmetrel) 100 MG tablet 5 armodafinil (Nuvigil) 200 MG tablet Take 1 tablet (200 mg) by mouth 1 (one) time each day. 4 atorvastatin (Lipitor) 80 MG tablet Take 1 tablet (80 mg) by mouth daily. cyanocobalamin (Vitamin B-12) 500 MCG tablet Take 1 tablet (500 mcg) by mouth daily. 3 desvenlafaxine (Pristiq) 100 MG 24 hr tablet Take 1 tablet (100 mg) by mouth 1 (one) time each day. Dietary Management Product (Vasculera) tablet 4 Erenumab-aooe (AIMOVIG, 140 MG DOSE, SC) estradiol (Climara) 0.1 MG/24HR apply 1 patch topically once a week 5 estradiol (Estrace) 2 MG tablet Take 1 tablet (2 mg) by mouth daily. famotidine (Pepcid) 40 MG tablet Take 1 tablet (40 mg) by mouth daily. furosemide (Lasix) 20 MG tablet glucose blood test strip USE TO TEST BLOOD SUGAR TWICE DAILY DIRECTED HESPERIDIN-DIOSMIN PO Take by mouth. Icosapent Ethyl (Vascepa) 1 g capsule Icosapent Ethyl 1 GM Oral Capsule QTY: 120 Days: 30 Refills: 0 Written: 04/26/23 Patient Instructions: 4 isosorbide mononitrate ER (Imdur) 30 MG 24 hr tablet Take 1 tablet (30 mg) by mouth 1 (one) time each day. 4 lamoTRIgine (LaMICtal) 100 MG tablet Take 1.5 tablets (150 mg) by mouth twice a day. 4 lamoTRIgine (LaMICtal) 150 MG tablet Take 1 tablet by mouth 2 times a day. 5 Lancets (OneTouch Delica Plus [id number]) [facility] See administration instructions. levothyroxine (Synthroid, Levoxyl) 125 MCG tablet Take 1 tablet (125 mcg) by mouth. metoprolol succinate XL (Toprol-XL) 50 MG 24 hr tablet Take 1 tablet (50 mg) by mouth twice a day. 4 Myrbetriq 50 MG tablet Take 1 tablet (50 mg) by mouth 1 (one) time each day. [address] capsule ofloxacin (Ocuflox) 0.3 % ophthalmic solution 5 [employer] Ultra Test test strip USE TO TEST BLOOD SUGAR TWICE DAILY DIRECTED potassium chloride CR (K-Tab) 20 MEQ ER tablet 4 potassium chloride CR (Klor-Con M20) 20 MEQ ER tablet 4 prazosin (Minipress) 2 MG capsule Take 3 capsules (6 mg) by mouth nightly. Rexulti 2 MG tablet tablet Take 1 tablet (2 mg) by mouth 1 (one) time each day. 4 Rimegepant Sulfate (Nurtec) 75 MG orally disintegrating tablet Take 1 tablet (75 mg) by mouth. sucralfate (Carafate) 1 g tablet Take 1 tablet (1 g) by mouth 4 (four) times a day. 4 triamcinolone (Kenalog) 0.1 % cream APPLY A THIN LAYER TO AFFECTED AREAS TOPICALLY TWICE DAILY FOR 7 DAYS 4 Vraylar 3 MG capsule take one (1) capsule by mouth every morning 4 gabapentin (Neurontin) 300 MG capsule Take 1 capsule (300 mg) by mouth nightly. 30 capsule 2 5 06/22/19 documented as of this encounter Miscellaneous Notes * Consults - Edith Valdez MD - 06/13/2024 10:19 PM EDTAssociated Order(s): Inpatient consult to Colorectal Surgery Images from the original note were not included. [facility] Department of Surgery Division of Colorectal Surgery History & Physical Note Reason for Consult: wound Requesting Service: Emergency Department Consult Date and Time: 06/13/2024 214 Inpatient consult to Colorectal Surgery Consult performed by: Edith Valdez MD Consult ordered by: Stephane Ely MD Subjective History of Present Illness: Chief Complaint: drainage from wound Demetra Diaz is a 44 y.o. female with PMHx significant for anxiety, constipation refractory to medical management s/p subtotal colectomy with ileorectal anastomosis (2021) and recent ex-lap with takedown of her ileorectal anastomosis, loop ileostomy (05/22/24), both surgeries with Dr. Diaz at [facility], who presents with serous drainage from her midline wound. Patient reportedly saw her surgeon for this last week with diagnosis of seroma and recommendation to continue local wound care. She presented to the [facility] ED for a second opinion. She reports that the drainage has slowed some, but is still bothersome to her. She denies fever, chills, nausea, vomiting, shortness of breath, or chest pain and her ostomy continues to have appropriate output. Review of Systems: Relevant review of systems was obtained as able and is negative unless stated above in HPI. History Obtained From: Patient Past Medical History: Medical History[1] Allergies And Reactions: Allergies[2] Past Surgical History: Surgical History[3] Family Medical History: Family History[4] Negative Social History: Social History Socioeconomic History Marital status: Significant Other Spouse name: Not on file Number of children: Not on file Years of education: Not on file Highest education level: Not on file Occupational History Not on file Tobacco Use Smoking status: Former Current packs/day: 0.00 Types: Cigarettes Quit date: 11/06/2021 Years since quittin.6 Smokeless tobacco: Never Tobacco comments: Quit Vaping Use Vaping status: Former Substance and Sexual Activity Alcohol use: Never Drug use: Never Sexual activity: Yes Partners: Male control/protection: Post-menopausal, Female Sterilization Other Topics Concern Not on file Social History Narrative Not on file Social Drivers of Health Financial Resource Strain: Low Risk (05/22/2024) Received from [facility] Financial Resource Strain How hard is it for you to pay for the very basics like food, housing, medical care, and heating? Would you say it is:: Not hard at all Food Insecurity: No Food Insecurity (05/22/2024) Received from [facility] Food Insecurity Within the past 12 months, you worried that your food would run out before you got money to buy more.: Never true Within the past 12 months, the food you bought just didn't last and you didn't have money to get more.: Never true Transportation Needs: No Transportation Needs (05/22/2024) Received from [facility] Transportation Needs In the past 12 months, has lack of reliable transportation kept you from medical appointments, meetings, work or from getting things needed for daily living?: No Physical Activity: Inactive (05/22/2024) Received from [facility] Physical Activity Number of minutes of exercise per week : 0 Stress: No Stress Concern Present (05/22/2024) Received from [facility] Stress Stress means a situation in which a person feels tense, restless, nervous, or anxious, or is unableto sleep at night because his or her mind is troubled all the time. Do you feel this kind of str...: Not at all Social Connections: Unknown (05/22/2024) Received from [facility] Family and Community Support If for any reason you need help with day-to-day activities such as bathing, preparing meals, shopping, managing finances, etc., do you get the help you need?: I don't need any help Feeling Lonely or Isolated: 0 Intimate Partner Violence: Unknown (11/14/2022) Received from [facility] Abuse Screen Unsafe at Home or Work/School: Not on file Feels Threatened by Someone?: Not on file Does Anyone Keep You from Contacting Others or Doint Things Outside the Home?: Not on file Physical Sign of Abuse Present: Not on file Housing Stability: Low Risk (05/22/2024) Received from [facility] Housing Stability What is your living situation today?: I have a steady place to live Think about the place you live. Do you have problems with any of the following?: None of the above Immunizations: Immunization History Administered Date(s) Administered Moderna COVID-19 Vaccine (Test Developer) 12+ years 10/30/2020, 11/27/2020, 04/20/2021 Moderna COVID-19 Vaccine Bivalent 6months+ 10/20/2021 I have updated and confirmed the past medical, surgical, family and social history. Home Medications: Prior to Admission medications Medication Sig Start Date End Date Taking? Authorizing Provider ALPRAZolam (Xanax) 1 MG tablet Take 1 tablet (1 mg) by mouth 3 times a day. 04/26/23 Elaine Puri MD amantadine (Symmetrel) 100 MG tablet 02/28/24 Elaine Puri MD armodafinil (Nuvigil) 200 MG tablet Take 1 tablet (200 mg) by mouth 1 (one) time each day. 09/26/23 Elaine Puri MD atorvastatin (Lipitor) 80 MG tablet Take 1 tablet (80 mg) by mouth daily. Elaine Puri MD cyanocobalamin (Vitamin B-12) 500 MCG tablet Take 1 tablet (500 mcg) by mouth daily. 01/03/23 Elaine Puri MD desvenlafaxine (Pristiq) 100 MG 24 hr tablet Take 1 tablet (100 mg) by mouth 1 (one) time each day.Elaine Puri MD Dietary Management Product (Vasculera) tablet 09/12/23 Elaine Puri MD Erenumab-aooe (AIMOVIG, 140 MG DOSE, SC) Elaine Puri MD estradiol (Estrace) 2 MG tablet Take 1 tablet (2 mg) by mouth daily. Elaine Puri MD famotidine (Pepcid) 40 MG tablet Take 1 tablet (40 mg) by mouth daily. Elaine Puri MD furosemide (Lasix) 20 MG tablet Elaine Puri MD gabapentin (Neurontin) 300 MG capsule Take 1 capsule (300 mg) by mouth nightly. 03/26/24 06/24/24 Jesus Espinosa MD glucose blood test strip USE TO TEST BLOOD SUGAR TWICE DAILY DIRECTED Elaine Puri MD HESPERIDIN-DIOSMIN PO Take by mouth. Elaine Puri MD Icosapent Ethyl (Vascepa) 1 g capsule Icosapent Ethyl 1 GM Oral Capsule QTY: 120 Days: 30 Refills: 0 Written: 04/26/23 Patient Instructions: 04/26/23 Elaine Puri MD isosorbide mononitrate ER (Imdur) 30 MG 24 hr tablet Take 1 tablet (30 mg) by mouth 1 (one) time each day. 04/26/23 Elaine Puri MD lamoTRIgine (LaMICtal) 100 MG tablet Take 1.5 tablets (150 mg) by mouth twice a day. Patient taking differently: Take 1.5 tablets (150 mg) by mouth 2 (two) times a day. 04/26/23 Elaine Puri MD Lancets (OneTouch Delica Plus [id number]) [facility] See administration instructions. Elaine Puri MD levothyroxine (Synthroid, Levoxyl) 125 MCG tablet Take 1 tablet (125 mcg) by mouth. Elaine Puri MD metoprolol succinate XL (Toprol-XL) 50 MG 24 hr tablet Take 1 tablet (50 mg) by mouth twice a day. 03/31/23 Elaine Puri MD Myrbetriq 50 MG tablet Take 1 tablet (50 mg) by mouth 1 (one) time each day. 03/28/23 Elaine Puri MD NexIUM [address] capsule Elaine Puri MD ofloxacin (Ocuflox) 0.3 % ophthalmic solution 03/13/24 Elaine Puri MD [employer] Ultra Test test strip USE TO TEST BLOOD SUGAR TWICE DAILY DIRECTED Elaine Puri MD potassium chloride CR (K-Tab) 20 MEQ ER tablet 04/06/23 Elaine Puri MD potassium chloride CR (Klor-Con M20) 20 MEQ ER tablet 01/11/24 Elaine Puri MD prazosin (Minipress) 2 MG capsule Take 3 capsules (6 mg) by mouth nightly. Elaine Puri MD Rexulti 2 MG tablet tablet Take 1 tablet (2 mg) by mouth 1 (one) time each day. 05/04/23 Elaine Puri MD Rimegepant Sulfate (Nurtec) 75 MG orally disintegrating tablet Take 1 tablet (75 mg) by mouth. Elaine Puri MD sucralfate (Carafate) 1 g tablet Take 1 tablet (1 g) by mouth 4 (four) times a day. 09/25/23 Elaine Puri MD triamcinolone (Kenalog) 0.1 % cream APPLY A THIN LAYER TO AFFECTED AREAS TOPICALLY TWICE DAILY FOR 7 DAYS 08/28/23 Elaine Puri MD Vraylar 3 MG capsule take one (1) capsule by mouth every morning 04/26/23 Elaine Puri MD Anti-Thrombotic Medications: Is this patient taking warfarin, new oral anti-coagulant, or anti-platelet medication? No If Yes, What Medication: N/A Current Hospital Medications: Current Medications[5] Objective Objective: Visit Vitals BP (!) 141/82 Pulse 83 Temp 36.8 ??C (98.2 ??F) (Oral) Wt 83.9 kg (185 lb) SpO2 100% BMI 30.79 kg/m?? @ Physical Exam: Physical Exam Constitutional: Appearance: Normal appearance. She is not ill-appearing or toxic-appearing. Eyes: Conjunctiva/sclera: Conjunctivae normal. Cardiovascular: Rate and Rhythm: Normal rate. Pulmonary: Effort: Pulmonary effort is normal. No respiratory distress. Abdominal: General: Abdomen is flat. There is no distension. Palpations: Abdomen is soft. Tenderness: There is no abdominal tenderness. Comments: Small focus of serous drainage from inferior midline wound, no purulence or surrounding erythema Musculoskeletal: General: No swelling or deformity. Skin: General: Skin is warm and dry. Neurological: General: No focal deficit present. Mental Status: She is alert and oriented to person, place, and time. Psychiatric: Mood and Affect: Mood normal. Behavior: Behavior normal. Laboratory: CBC WBC 6.96 Hb 11.4 Plt 318 Hct 34.1 ANC 4.48 INR ??, PTT ??, Anti-Xa ?? MCV 85 BMP Na 135 (L) Cl 97 BUN 5 (L) Glu 83 K 3.8 Co2 24 Cr 0.70 Ca 9.2 iCa ?? Mg ??, Phos ?? Lactate ?? LFT AST 24 AlkPhos 172 (H) T Prot 7.5 ALK 20 Bili <0.2 (L) Alb ?? D.Bili ?? Imaging: OSH CT from 06/04/24: CT OF THE ABDOMEN AND PELVIS HISTORY: [...] abdominal ascites, adenopathy, or acute osseous abnormality. Exam End: 06/04/24 19:32 Specimen Collected: 06/04/24 20:06 Radiographic Interpretation: I have reviewed the imaging above and agree with the radiologist interpretation. Assessment/Plan Assessment & Plan: Demetra Diaz is a 44 y.o. female with PMHx notable for anxiety, constipation refractory to medical management s/p subtotal colectomy with ileorectal anastomosis (2021) and recent ex-lap with takedownof her ileorectal anastomosis, loop ileostomy (05/22/24). Both surgeries were done with Dr. Diaz at [facility]. She presents with scant serous drainage from her midline wound with no purulence or surrounding erythema. This appears consistent with seroma as described by her surgeon's noteduring her office visit last week. I also reviewed her CT imaging from 06/04, which shows inflammation beneath her midline wound and a 10.2 x 4.8 cm fluid collection in the pelvis. At the time of that imaging patient was around 12 days post-op. Given her normal vitals, lack of abdominal pain, appropriate ostomy output, and normal WBC, would not recommend any acute surgical intervention for this fluid collection. We agree with her surgeon's recommendations of continuing local wound care for her seroma. Patient is appropriate for discharge from the ED. This Consult, Assessment, and Plan has been discussed with Dr. Vargas, Attending Physician Edith Valdez MD General Surgery [1] Past Medical History: Diagnosis Date Anemia Anxiety disorder, unspecified Anxiety Arrhythmia Coronary artery disease Depression Diabetes mellitus (CMS/HCC) Hypertension Obesity Osteoarthritis Other intervertebral disc displacement, lumbar region Herniated lumbar intervertebral disc Personal history of other diseases of the musculoskeletal system and connective tissue H/O degenerative disc disease [2] Allergies Allergen Reactions Bupropion Dizziness, Hives, Other - please document in the comment field, Palpitations and Shortness of breath hypotension Other Hives Paroxetine Dizziness, Headache, Nausea, Palpitations and Shortness of breath Prednisolone Itching, Palpitations, Rash and Shortness of breath Prednisone Itching Sumatriptan Other - please document in the comment field and Palpitations Sympathomimetics Other - please document in the comment field, Dizziness, Headache, Hives, Itching,Palpitations, Rash, Shortness of breath and Unknown - Patient states they do not know rxn details Triptans Dizziness, Headache, Itching, Palpitations, Shortness of breath and Unknown - Patient states they do not know rxn details Bupropion Hcl Dizziness Hydroxyzine Unknown - Patient states they do not know rxn details Pseudoephedrine Other - please document in the comment field [3] Past Surgical History: Procedure Laterality Date SECTION, LOW TRANSVERSE N/A Section from [place] CHOLECYSTECTOMY COLECTOMY DILATION AND CURETTAGE OF UTERUS N/A Dilation And Curettage from [place] GALLBLADDER SURGERY N/A Gallbladder Surgery from [place] HAND SURGERY HYSTERECTOMY N/A Hysterectomy from [place] NECK SURGERY SPINE SURGERY TUBAL LIGATION N/A Tubal Ligation from [place] WRIST SURGERY [4] Family History Problem Relation Name Age of Onset Cardiac disorder Other Stroke Other Diabetes Father Lenny Diaz Other cancer Other Heart attack Mother Doris Diaz Anesthesia problems Mother Doris Diaz Osteoporosis Mother Doris Diaz Diabetes Mother Doris Diaz Osteoarthritis Other Hyperlipidemia Sister Hyperlipidemia Other Hyperlipidemia Other Conversions - Other Other History of open heart surgery Conversions - Other Other History of open heart surgery Conversions - Other Other History of open heart surgery Osteoporosis Maternal Grandmother Adia Singh Cancer Paternal Grandfather Dustin Diaz [5] No current facility-administered medications for this encounter. Current Outpatient Medications Medication Sig Dispense Refill ALPRAZolam (Xanax) 1 MG tablet Take 1 tablet (1 mg) by mouth 3 times a day. amantadine (Symmetrel) 100 MG tablet armodafinil (Nuvigil) 200 MG tablet Take 1 tablet (200 mg) by mouth 1 (one) time each day. atorvastatin (Lipitor) 80 MG tablet Take 1 tablet (80 mg) by mouth daily. cyanocobalamin (Vitamin B-12) 500 MCG tablet Take 1 tablet (500 mcg) by mouth daily. desvenlafaxine (Pristiq) 100 MG 24 hr tablet Take 1 tablet (100 mg) by mouth 1 (one) time each day. Dietary Management Product (Vasculera) tablet Erenumab-aooe (AIMOVIG, 140 MG DOSE, SC) estradiol (Estrace) 2 MG tablet Take 1 tablet (2 mg) by mouth daily. famotidine (Pepcid) 40 MG tablet Take 1 tablet (40 mg) by mouth daily. furosemide (Lasix) 20 MG tablet gabapentin (Neurontin) 300 MG capsule Take 1 capsule (300 mg) by mouth nightly. 30 capsule 2 glucose blood test strip USE TO TEST BLOOD SUGAR TWICE DAILY DIRECTED HESPERIDIN-DIOSMIN PO Take by mouth. Icosapent Ethyl (Vascepa) 1 g capsule Icosapent Ethyl 1 GM Oral Capsule QTY: 120 Days: 30 Refills: 0 Written: 04/26/23 Patient Instructions: isosorbide mononitrate ER (Imdur) 30 MG 24 hr tablet Take 1 tablet (30 mg) by mouth 1 (one) time each day. lamoTRIgine (LaMICtal) 100 MG tablet Take 1.5 tablets (150 mg) by mouth twice a day. (Patient taking differently: Take 1.5 tablets (150 mg) by mouth 2 (two) times a day.) Lancets (HItviewsTouch Delica Plus [id number]) [facility] See administration instructions. levothyroxine (Synthroid, Levoxyl) 125 MCG tablet Take 1 tablet (125 mcg) by mouth. metoprolol succinate XL (Toprol-XL) 50 MG 24 hr tablet Take 1 tablet (50 mg) by mouth twice a day. Myrbetriq 50 MG tablet Take 1 tablet (50 mg) by mouth 1 (one) time each day. NexIUM [address] capsule ofloxacin (Ocuflox) 0.3 % ophthalmic solution [employer] Ultra Test test strip USE TO TEST BLOOD SUGAR TWICE DAILY DIRECTED potassium chloride CR (K-Tab) 20 MEQ ER tablet potassium chloride CR (Klor-Con M20) 20 MEQ ER tablet prazosin (Minipress) 2 MG capsule Take 3 capsules (6 mg) by mouth nightly. Rexulti 2 MG tablet tablet Take 1 tablet (2 mg) by mouth 1 (one) time each day. Rimegepant Sulfate (Nurtec) 75 MG orally disintegrating tablet Take 1 tablet (75 mg) by mouth. sucralfate (Carafate) 1 g tablet Take 1 tablet (1 g) by mouth 4 (four) times a day. triamcinolone (Kenalog) 0.1 % cream APPLY A THIN LAYER TO AFFECTED AREAS TOPICALLY TWICE DAILY FOR 7 DAYS Vraylar 3 MG capsule take one (1) capsule by mouth every morning Cosigned by Maria Teresa Vargas MD at 06/19/2024 4:32 PM EDT * ED Provider Notes - Otto Davenport MD - 06/13/2024 7:37 PM EDT - HPI Chief Complaint Patient presents with Wound Check PIT NOTE Demetra Diaz is a 44 y.o. female who presents to the ED with a wound check. Pt reports she's 3 weeks s/p ileostomy and is worried of infections d/t purulent drainage from the incision site, sometimesaccompanied with blood. Pt reports recently presenting to OSH ([facility]) for similar symptoms. Pt additionally c/o nausea, chills. Pt has no other complaints at this time. Resident attestation: I agree with the statements above like to add the following, this patient presents to the emergency department with primary complaint of drainage. She had an exploratory laparotomy with ileostomy formation 3 weeks ago, shortly after the operation she noticed drainage from the bottom of her incision site. She was recently seen at [facility] where CT scan showed a large fluid collection measuring approximately 10 x 4 cm in the pelvis, she was seen by her surgeon at [place] who felt that the seroma was draining into the incision site in that no operative interventionwas necessary. She presents today for a 2nd opinion. Of note she has not been febrile, tachycardic,or exhibited any other infectious signs. Today the drainage is clear not purulent. History provided by: Patient owner e commerce company used: No Patient History Medical History[1] Surgical History[2] Family History[3] Social History[4] Allergies: Allergies[5] Physical Exam ED Triage Vitals [06/13/241948] Temp Heart Rate Resp BP 36.8 ??C (98.2 ??F) 83 18 (!) 141/82 SpO2 Temp Source Heart Rate Source Patient Position 100 % Oral -- -- BP Location FiO2 (%) -- -- Physical Exam Constitutional: General: She is not in acute distress. HENT: Head: Normocephalic. Comments: No facial swelling Mouth/Throat: Mouth: Mucous membranes are moist. Pharynx: Oropharynx is clear. Cardiovascular: Rate and Rhythm: Normal rate. Pulmonary: Effort: Pulmonary effort is normal. No respiratory distress. Breath sounds: Normal air entry. Comments: Speaking full sentences. Symmetric chest rise Abdominal: General: There is no distension. Musculoskeletal: General: No deformity. Normal range of motion. Cervical back: Normal range of motion. Comments: Atraumatic, moves all extremities spontaneously Neurological: Mental Status: She is alert. Mental status is at baseline. Comments: Awake Psychiatric: Behavior: Behavior normal. Lazaro Coma Scale Score: 15 ED Course & MDM Date/Time: 06/13/2024/8:05 PM Entered by Darien Sanon acting as scribe for Rosa Clark MD. Attending Attestation: The documentation was recorded by Darien Sanon, acting as scribe in my presence at the time of the encounter and accurately reflects the service I personally performed. - Assessment: 44 y.o. female presents to ED with complaint of postsurgical drainage. It should be noted that the chronic conditions includes colectomy, ileostomy formation, which currently is at goal therapy. Thiscomplicates the clinical picture because it Comorbidities: may be exacerbating symptoms and increases the amount and complexity of data to be reviewed Differential Diagnosis: Infection, seroma, abscess, fistula formation In order to fully explore the differential diagnosis the following treatments and tests were ordered: ED Course as of 06/13/242244 Mee June 13, [id number] Laboratory workup personally interpreted by me to show no leukocytosis, no anemia, no metabolic abnormalities with the exception of mild increase in alk- phos, no elevation in CRP [MM] 2123 CT scan personally interpreted by me to show fluid collection, normal postsurgical changes, noother concerning findings. [MM] 2242 Colorectal surgery service was consulted, they evaluated the patient and felt that no operative intervention was necessary. [MM] 224 I had a conversation with the patient regarding treatment options, ultimately we decided that discharged home with close follow up with her colorectal through [facility] was the most reasonable course of action. I provided careful return precautions of which she verbalized understanding and discharge the patient home. The patient was comfortable with this plan. [MM] ED Course User Index [MM] Otto Davenport MD Clinical Impressions as of 06/13/242244 Abdominal wall seroma, initial encounter Social Determinates of Health Risks (including Economic Stability, Education and level of understanding, Healthcare access and quality and concerning social factors): None identified on this visit Ultimately, this patient was Was discharged Home (Discharge) The encounter diagnosis was Abdominal wall seroma, initial encounter. . Patient was counseled on the diagnoses. Discharge medications if any are listed below. Listed medications are thought be either curative for listed diagnoses or will help control ongoing symptoms. Patient is requested to follow up with Patient's Primary Care Provider and Colorectal Surgery in order to obtain routine follow-up. Instructions on follow up as well as precautions to return to the ER provided verballyby the EM provider, as well as written in patients discharge education packet. ED Prescriptions None - [1] Past Medical History: Diagnosis Date Anemia Anxiety disorder, unspecified Anxiety Arrhythmia Coronary artery disease Depression Diabetes mellitus (CMS/HCC) Hypertension Obesity Osteoarthritis Other intervertebral disc displacement, lumbar region Herniated lumbar intervertebral disc Personal history of other diseases of the musculoskeletal system and connective tissue H/O degenerative disc disease [2] Past Surgical History: Procedure Laterality Date SECTION, LOW TRANSVERSE N/A Section from [place] CHOLECYSTECTOMY COLECTOMY DILATION AND CURETTAGE OF UTERUS N/A Dilation And Curettage from [place] GALLBLADDER SURGERY N/A Gallbladder Surgery from [place] HAND SURGERY HYSTERECTOMY N/A Hysterectomy from [place] NECK SURGERY SPINE SURGERY TUBAL LIGATION N/A Tubal Ligation from [place] WRIST SURGERY [3] Family History Problem Relation Name Age of Onset Cardiac disorder Other Stroke Other Diabetes Father Lenny Diaz Other cancer Other Heart attack Mother Doris Diaz Anesthesia problems Mother Doris Diaz Osteoporosis Mother Doris Diaz Diabetes Mother Doris Diaz Osteoarthritis Other Hyperlipidemia Sister Hyperlipidemia Other Hyperlipidemia Other Conversions - Other Other History of open heart surgery Conversions - Other Other History of open heart surgery Conversions - Other Other History of open heart surgery Osteoporosis Maternal Grandmother Adia Singh Cancer Paternal Grandfather Dustin Diaz [4] Tobacco Use Smoking status: Former Current packs/day: 0.00 Types: Cigarettes Quit date: 11/06/2021 Years since quittin.6 Smokeless tobacco: Never Tobacco comments: Quit Vaping Use Vaping status: Former Substance Use Topics Alcohol use: Never Drug use: Never [5] Allergies Allergen Reactions Bupropion Dizziness, Hives, Other - please document in the comment field, Palpitations and Shortness of breath hypotension Other Hives Paroxetine Dizziness, Headache, Nausea, Palpitations and Shortness of breath Prednisolone Itching, Palpitations, Rash and Shortness of breath Prednisone Itching Sumatriptan Other - please document in the comment field and Palpitations Sympathomimetics Other - please document in the comment field, Dizziness, Headache, Hives, Itching,Palpitations, Rash, Shortness of breath and Unknown - Patient states they do not know rxn details Triptans Dizziness, Headache, Itching, Palpitations, Shortness of breath and Unknown - Patient states they do not know rxn details Bupropion Hcl Dizziness Hydroxyzine Unknown - Patient states they do not know rxn details Pseudoephedrine Other - please document in the comment field Otto Davenport MD Resident 06/13/24 5589 Cosigned by Stephane Ely MD at 06/17/2024 3:23 PM EDT Associated attestation - Stephane Ely MD - 06/17/2024 3:23 PM EDT I saw and evaluated the patient with the resident/fellow. I discussed the case with the resident/fellow and agree with the findings and plan as documented. * ED Triage Notes - Micah Reno, RN - 06/13/2024 7:37 PM EDT Pt reports 3 weeks s/p ileostomy. Pt present with concern for infection secondary to purulent drainage from incision. Denies fevers, reports chills and N. Reports normal output. GCS 15 A&O x4. documented in this encounter Plan of Treatment Upcoming Encounters Date Type Department Care Team (Late st Contact Info) Description 09/24/2024 10:30 AM EDT Office Visit Interventional Pain Medicine [address] [place] [phone] Kishor Mcdonald MD [address] [place] [address] documented as of this encounter Procedures Procedure Name Priority Date/Time Associated Diagnosis Comments CBC WITH AUTO DIFFERENTIAL STAT 06/13/2024 8:16 PM EDT C-REACTIVE PROTEIN, PLASMA STAT 06/13/2024 8:16 PM EDT COMPREHENSIVE METABOLIC PANEL, PLASMA STAT 06/13/2024 8:16 PM EDT documented in this encounter Results * C-Reactive protein (06/13/2024 8:16 PM EDT) Pathologist [facility] CRP, Plasma <3.0 <=8.0 mg/L 06/13/2024 8:40 PM EDT [facility] Blood Venous blood specimen / Unknown Venipuncture / Unknown 06/13/2024 8:16 PM EDT 06/13/2024 8:19 PM EDT Narrative [facility] - 06/13/2024 8:40 PM EDT This CRP test is appropriate for assessment of infection, systemic inflammation and/or tissue injury. To assess cardiovascular disease risk order high sensitivity CRP (CRPH). us Rosa Meyer MD LAB BLOOD ORDERABLES Final Re sult [facility] [address] [place] [address] * (ABNORMAL) CBC w/diff (06/13/2024 8:16 PM EDT) Pathologist [facility] WBC Count 6.96 3.70 - 10.30 10*3/uL LAB HEMATOLOGY METHOD 06/13/2024 8:21 PM EDT [facility] RBC Count 4.01 3.90 - 5.20 10*6/uL LAB HEMATOLOGY METHOD 06/13/2024 8:21 PM EDT [facility] HGB 11.4 11.2 - 15.7 g/dL LAB HEMATOLOGY METHOD 06/13/2024 8:21 PM EDT [facility] HCT 34.1 34.0 - 45.0 % LAB HEMATOLOGY METHOD 06/13/2024 8:21 PM EDT [facility] Platelet Count 318 155 - 369 10*3/uL LAB HEMATOLOGY METHOD 06/13/2024 8:21 PM EDT [facility] MCV 85 79 - 98 fL LAB HEMATOLOGY METHOD 06/13/2024 8:21 PM EDT [facility] MCH 28.4 26.0 - 32.0 pg LAB HEMATOLOGY METHOD 06/13/2024 8:21 PM EDT [facility] MCHC 33.4 30.7 - 35.5 g/dL LAB HEMATOLOGY METHOD 06/13/2024 8:21 PM EDT [facility] RDW 13.2 11.5 - 14.5 % LAB HEMATOLOGY METHOD 06/13/2024 8:21 PM EDT [facility] MPV 7.9(L) 8.8 - 12.5 fL LAB HEMATOLOGY METHOD 06/13/2024 8:21 PM EDT [facility] nRBC 0.0 <=0.0 per 100 WBCs LAB HEMATOLOGY METHOD 06/13/2024 8:21 PM EDT [facility] Differential Type Automated LAB HEMATOLOGY METHOD 06/13/2024 8:21 PM EDT [facility] Neutrophils % 64 % LAB HEMATOLOGY METHOD 06/13/2024 8:21 PM EDT [facility] Lymphocytes % 26 % LAB HEMATOLOGY METHOD 06/13/2024 8:21 PM EDT [facility] Monocytes % 6 % LAB HEMATOLOGY METHOD 06/13/2024 8:21 PM EDT [facility] Eosinophils % 3 % LAB HEMATOLOGY METHOD 06/13/2024 8:21 PM EDT [facility] Basophils % 1 % LAB HEMATOLOGY METHOD 06/13/2024 8:21 PM EDT [facility] Immature Granulocytes % 0 % LAB HEMATOLOGY METHOD 06/13/2024 8:21 PM EDT [facility] Neutrophils Absolute 4.48 1.60 - 6.10 10*3/uL LAB HEMATOLOGY METHOD 06/13/2024 8:21 PM EDT [facility] Lymphocytes Absolute 1.79 1.20 - 3.90 10*3/uL LAB HEMATOLOGY METHOD 06/13/2024 8:21 PM EDT [facility] Monocytes Absolute 0.44 0.30 - 0.90 10*3/uL LAB HEMATOLOGY METHOD 06/13/2024 8:21 PM EDT [facility] Eosinophils Absolute 0.18 0.00 - 0.50 10*3/uL LAB HEMATOLOGY METHOD 06/13/2024 8:21 PM EDT [facility] Basophils Absolute 0.05 0.00 - 0.10 10*3/uL LAB HEMATOLOGY METHOD 06/13/2024 8:21 PM EDT [facility] Immature Granulocytes Absolute 0.02 0.00 - 0.06 10*3/uL LAB HEMATOLOGY METHOD 06/13/2024 8:21 PM EDT [facility] Blood Venous blood specimen / Unknown Venipuncture / Unknown 06/13/2024 8:16 PM EDT 06/13/2024 8:19 PM EDT Narrative [facility] - 06/13/2024 8:21 PM EDT Therapeutic decision making should be based on absolute values, rather than percentages. us Rosa Meyer MD LAB BLOOD ORDERABLES Final Re sult [facility] [address] [place] [address] * (ABNORMAL) CMP (06/13/2024 8:16 PM EDT) Glucose, Plasma 83 74 - 99 mg/dL 06/13/2024 8:40 PM EDT [facility] BUN, Plasma 5(L) 7 - 21 mg/dL 06/13/2024 8:40 PM EDT [facility] Creatinine, Plasma 0.70 0.60 - 1.10 mg/dL 06/13/2024 8:40 PM EDT [facility] BUN/Creatinine Ratio 7 06/13/2024 8:40 PM EDT [facility] Sodium, Plasma 135(L) 136 - 145 mmol/L 06/13/2024 8:40 PM EDT [facility] Potassium, Plasma 3.8 3.6 - 4.9 mmol/L 06/13/2024 8:40 PM EDT [facility] Chloride, Plasma 97 97 - 107 mmol/L 06/13/2024 8:40 PM EDT [facility] CO2, Plasma 24 22 - 29 mmol/L 06/13/2024 8:40 PM EDT [facility] Anion Gap 14 6 - 16 mmol/L 06/13/2024 8:40 PM EDT [facility] Total Calcium, Plasma 9.2 8.9 - 10.2 mg/dL 06/13/2024 8:40 PM EDT [facility] Total Protein 7.5 6.3 - 7.9 g/dL 06/13/2024 8:40 PM EDT [facility] Albumin, Plasma 4.7 3.5 - 5.2 g/dL 06/13/2024 8:40 PM EDT [facility] AST, Plasma 24 10 - 35 U/L 06/13/2024 8:40 PM EDT [facility] ALT, Plasma 20 10 - 35 U/L 06/13/2024 8:40 PM EDT [facility] Alkaline Phosphatase, Plasma 172(H) 35 - 104 U/L 06/13/2024 8:40 PM EDT [facility] Total Bilirubin, Plasma <0.2(L) 0.2 - 1.1 mg/dL 06/13/2024 8:40 PM EDT [facility] eGFRcr 108.8 mL/min/1.7 3m*2 06/13/2024 8:40 PM EDT [facility] Comment:Reported eGFRcr in m L/min/1.73m2 is based the CKD-EPI 2020 equation that does not use a race coefficient. Blood Venous blood specimen / Unknown Venipuncture / Unknown 06/13/2024 8:16 PM EDT 06/13/2024 8:19 PM EDT us Rosa Meyer MD LAB BLOOD ORDERABLES Final Re sult [facility] [address] [place] [address] documented in this encounter Visit Diagnoses Diagnosis Abdominal wall seroma, initial encounter- Primary documented in this encounter Additional Health Concerns Assessment Noted Time PHQ-9 Depression Total Score: 0 01/16/20 24 9:43 AM EST A fall risk assessment has been complete d for the patient 03/26/2024 12:53 PM EST A Body Mass Index follow-up plan has been documented for the patient 03/26/2024 1:33 PM EST documented as of this encounter Care Teams Sr Risk Management Consultant Relationship Specialty Start Date End Date Deandra Lopez APRN [address] [place] [address] PCP - General 10/18/23 documented as of this encounter
--- OUTSIDE RECORDS SUMMARY | 2024-06-21 10:32 | XMS_ITS | Encounter Summary ---
Author Organization [facility] [employer] Address [address] [place] [address] Care Team Providers Care Laundry Superintendent Name Role Phone Deandra Lopez APRN Primary Care Provider [phone]- [phone] Encounter Details Date Type Department Care Team (Latest Contact Info) Description 06/21/2024 10:32 AM EDT - 06/21/2024 11:59 PM EDT Hospital Encounter [facility] [address] [place] [address] Discharge Disposition: Home or Self [...] your living situation today? I have a [facility] place to live 05/22/2024 Think about [...] Do you speak a language other than [place] at [facility]? No 05/22/2024 Do you want help with [...] Apply to affected areas as directed . gabapentin (NEURONTIN) 300 MG capsule Take 1 capsule (300 mg total) by mouth nightly. 11/21/2023 06/25/19 mirabegron (Myrbetriq) 50 mg Tb24 ER tablet Take 1 tablet (50 mg total) by mouth daily. 07/12/19 25 documented as of this encounter Progress Notes * Erna Morataya RN - 06/21/2024 12:02 PM EDTSummary: [facility] 06/21/24 1100 Ostomy (Stool) Ileostomy RLQ Date First Assessed/Time First Assessed: 05/22/241929 Ostomy Type: Ileostomy Location: RLQ Ostomy Status Functioning;Budded;Moist;Established Stoma Color Red Peristomal Skin Intact Interventions Change pouch;Cleanse skin;Cleanse stoma Patient at ostomy clinic for reinforcement of ileostomy teaching, s/p ileostomy 4 weeks ago. Ostomystatus as above, patient relates tthat she is only getting 2 days wear time, relates that she is comfortable with pouch change. All ostomy teaching per Sujata folder that was given to patient previously. Reinforced how to change the pouch, patient able to repeat back steps for changing ostomy appliance. Reinforced daily ostomy care, diet, what stoma should look like and when to call doctor. Reinforced how to treat peristomal skin damage using powder and barrier spray. Follow up appointment made for July 17, 2024 at 1100. Total time spent with patient was 60 minutes. Ostomy Supplies: [place] Red Soft Convex Pouching System Sujata Adapt Oval Convex Ring #[id number] Stoma Powder Cavilon Barrier Wipes documented in this encounter Plan of Treatment Upcoming Encounters Date Type Department Care Team (Late st Contact Info) Description 07/17/2024 11:[address] [facility] [address] [place] [address] 08/28/2024 9:15 AM EDT Office Visit [facility] Urology - [address] [place] [phone] Chandrika Santana, JANITOR CLEANER [address] [place] [address] 04/17/2025 8:30 AM EDT Office Visit [facility] Cardiology - [place] [address] [place] [phone] Tamara Sow PA-C [address] [place] [phone] documented as of this encounter Visit Diagnoses Not on filedocumented in this encounter Care Teams Laundry Superintendent Relationship Specialty Start Date End Date Deandra Lopez, JANITOR CLEANER [address] [place] [address] PCP - General Nurse Practitioner 06/04/24 documented as of this encounter
--- OUTSIDE RECORDS SUMMARY | 2024-06-21 14:30 | XMS_ITS | Encounter Summary ---
Author Organization Healthcare Address [address] [place] [address] Care Team Providers Care Hop Strainer Name Role Phone Deandra Lopez APRN Primary Care Provider [phone]- [phone] Reason for Visit * Reason Comments Follow-up Encounter Details Date Type Department Care Team (Late st Contact Info) Description 06/21/2024 2:30 PM EDT Office Visit Interventional Pain Medicine [address] [place] [address] Kishor Mcdonald MD [address] [place] [address] Neuropathy (Primary Dx); Cubital tunnel syndrome on right Social History Tobacco Use Types Packs/Day Years [...] Sign Reading Time Taken Comments Blood Pressure 106/68 06/21/2024 1:51 PM EDT Pulse 78 06/21/2024 1:51 PM EDT Temperature 36.3 C (97.4 F) 06/21/2024 1:51 PM EDT Respiratory Rate 16 06/21/2024 1:51 PM EDT Oxygen Saturation 99% 06/21/2024 1:51 PM EDT Inhaled Oxygen Concentration - - Weight 84.3 kg (185 lb 13.6 oz) 06/21/2024 1:51 PM EDT Height 165.1 cm (5' 5 ) 06/21/2024 1:51 PM EDT Body Mass Index 30.93 06/21/2024 1:51 PM EDT documented in this encounter Miscellaneous Notes * Clinician Note - Artis Livingston CNA - 06/21/2024 2:30 PM EDT Ronnie 06/20/24 Alapraz 06/21/24 * Progress Notes - Kishor Mcdonald MD - 06/21/2024 2:30 PM EDT Images from the original note were not included. Interventional Pain Medicine Follow Up Patient Note Subjective: Interval history Ms. Diaz presents today for follow up evaluation of her plantar fasciitis and RUE neuropathy. Today, she reports ongoing resolution of her foot pain. She does continue to have nerve pain in the rightarm, but believes the pregabalin is helpful. History of Present Illness: Demetra Diaz is a 44 y.o. female who presents for Right Upper Extremity Neuropathy. Pt presents as referral from [facility] for evaluation and consideration of interventional management. Site: Right Hand Onset: s/p carpel tunnel release Dr. Hamilton Mar 2023 Severity: 08/15 Descriptors: throbbing, aching, numbness and tingling Aggravating Factors: picking up objects, cooking, driving Relieving Factors: unable to identify Associated Symptoms: Difficulty with cyber legal advisor strength, reports pain is from medial aspect of elbow down to medial fingers IAN: 37 Current Disabilities: limited ADLs/ iADLS, mobility Functional Goals of Treatment: improvement in function with the above Current Medication: Current Pain Medications gabapentin (Neurontin) 300 MG capsule Take 1 capsule by mouth nightly. lamoTRIgine (LaMICtal) 150 MG tablet Take 1 tablet by mouth 2 times a day. Rexulti 2 MG tablet tablet Take 1 tablet (2 mg) by mouth 1 (one) time each day. Rexulti 3 MG tablet desvenlafaxine (Pristiq) 100 MG 24 hr tablet Take 1 tablet (100 mg) by mouth 1 (one) time each day. lamoTRIgine (LaMICtal) 100 MG tablet Take 1.5 tablets (150 mg) by mouth twice a day. Vraylar 3 MG capsule take one (1) capsule by mouth every morning Previous Medication: Advil Tylenol Previous Conservation Treatment: conservative care > 6 weeks within the last 6 months heat ice medication trials modified activities Dry needling - no benefit PT 8 weeks: [facility] Orthopedics with no benefit Unable to tolerate HEP due to pain Wrist splints at night Previous Interventions/Consults: 02/14/24 bilateral plantar fascia CSI -01/16/2024: right cubital tunnel hydrodissection (Dr. Lazo, PMR) -s/p carpel tunnel release Dr. Hamilton Mar 2023 - Hand Surgery (2nd opinion) -Implanted SCS by Dr Collazo (2018 - 2019) -Dr. Hamilton explanted (2022) -Surgery C Spine 2022 - Dr. Hamilton (C6-C7 per patient) -Prior Lumbar -Laminectomy ([address] Liang Arriaga) Other Medical History reports that she quit smoking about 2 years ago. Her smoking use included cigarettes. She has neverused smokeless tobacco. Diabetes: Denies A1C: N/A Anticoagulation: Denies Review of Systems: CONSTITUTIONAL: denies fevers, chills HEENT: denies swallowing difficulties, sore throat CARDIOVASCULAR: denies chest pain, palpitations, syncope RESPIRATORY: denies shortness of breath, cough, wheezing GI: denies change in bowel habits, nausea, vomiting : denies change in bladder function, frequency, dysuria SKIN: denies rash, skin changes MSK: Per HPI NEURO: Per HPI PSYCH: Per HPI General Physical Exam: Constitutional Appears well-developed and well-nourished Neurologic & Musculoskeletal Exam Cervical Region Exam Right (+/-) Left (+/-) Cervical Musculature Tender w/ Palpation - - Cervical Facets Pain w/ Extension - - Upper Extremity Spurling's - - Upper Extremity Bakody's - - Sensation Right Left Neck Normal Normal C5: Shoulder Normal Normal C6: Thumb, radial aspect of hand/forearm (Radial Nerve) dec Normal C7: Long finger (Median Nerve) dec Normal C8: Little finger, ulnar aspect of hand/forearm (Ulnar n.) dec Normal T1; Medial forearm/arm dec Normal Motor Strength Right Left C5: Shoulder abduction (Deltoid) 06/10 06/10 C5: Elbow flexion (Biceps, Brachialis) 06/10 06/10 C6: Wrist extension (ECRB, ECRL) 06/10 06/10 C7: Elbow extension (Triceps) 06/10 06/10 C8: Finger flexion (Egg Caser strength) 05/11 06/10 T1: Finger abduction 05/11 06/10 Reflexes Right Left C5: Biceps 2/4 2/4 C6: Brachioradialis 2/4 2/4 C7: Triceps 2/4 2/4 Greene's Absent Absent Clonus Absent Absent Right Hand: Allodynia to light touch and hyperesthesia along palmar aspect of the right 4th and 5th digits Bilateral feet: Reproduction of her plantar foot pain with palpation, especially at the anterior calcaneus. Imagin10/30/20 Xray L Spine (read only) AP and lateral views of the lumbar spine reveal minimal multilevel degenerative changes identified throughout the lumbar spine with disc space narrowed at L3/L4 and anterior spurring of L4 on L5. Facets are well aligned. Pedicles are intact. No fracture or dislocation. Minimal degenerative changes seen within the SA joints bilaterally. 12/26/23 EMG/NCS: Mild slowing of the ulnar nerve across the elbow on the right side. Assessment & Plan: Demetra Diaz is a 44 y.o. female who presents for RUE and bilateral foot pain #Right Upper Extremity Pain, chronic stable, requiring controlled medication #Neuropathic Pain -07/13/23 EMG as above, scheduled for repeat EMG next week 12/26/23 -diagnostic ultrasound on 12/21/2023 did not demonstrate any overt areas of entrapment/damage of the right median/ulnar nerves -s/p ulnar nerve hydrodissection with PMR 01/16/2024 with ongoing significant relief -continue gabapentin 300mg at bedtime, refilled today + 2 #Bilateral plantar fasciitis, chronic stable -currently unable to tolerate physical therapy due to increased pain -now s/p 02/14/24 bilateral plantar fascia CSI with ongoing 100% relief -provided some home exercises for long-term management, can consider referral to physical therapy in the future if she wants -repeat PRN RTC in three months for ongoing evaluation documented in this encounter Plan of Treatment Upcoming Encounters Date Type Department Care Team (Late st Contact Info) Description 09/24/2024 10:30 AM EDT Office Visit Interventional Pain Medicine [address] [place] [address] Kishor Mcdonald MD [address] [place] [address] documented as of this encounter Visit Diagnoses Diagnosis Neuropathy- Primary Mononeuritis of unspecified site Cubital tunnel syndrome on right documented in this encounter Additional Health Concerns Assessment Noted Time PHQ-9 Depression Total Score: 0 01/16/20 24 9:43 AM EST A fall risk assessment has been complete d for the patient 06/21/2024 1:51 PM EDT A Body Mass Index follow-up plan has been documented for the patient 06/21/2024 2:27 PM EDT documented as of this encounter Care Teams Hop Strainer Relationship Specialty Start Date End Date Deandra Lopez APRN [address] [place] [address] PCP - General 10/18/23 documented as of this encounter
--- OUTSIDE RECORDS SUMMARY | 2024-07-04 09:48 | XMS_ITS | Encounter Summary ---
Author Organization [facility] [employer] Address [address] [place] [address] Care Team Providers Care Barrel Rifler Name Role Phone Deandra Lopez APRN Primary Care Provider +1- [phone] Encounter Details Date Type Department Care Team (Latest Contact Info) Description 07/04/2024 9:48 AM EDT - 07/04/2024 11:59 PM EDT Hospital Encounter [facility] Wound & Ostomy Therapy [address] [place] [address] Discharge Disposition: Home or Self [...] your living situation today? I have a [facility] place to live 05/22/2024 Think about [...] Do you speak a language other than Slovak at [facility]? No 05/22/2024 Do you want help [...] Apply to affected areas as directed . mirabegron (Myrbetriq) 50 mg Tb24 ER tablet Take 1 tablet (50 mg total) by mouth daily. 07/12/19 25 documented as of this encounter Progress Notes * Erna Morataya RN - 07/04/2024 10:41 AM EDTSummary: [facility] Ostomy Clinic Images from the original note were not included. 07/04/24 1000 Ostomy (Stool) Ileostomy RLQ Date First Assessed/Time First Assessed: 05/22/24 1930 Ostomy Type: Ileostomy Location: RLQ Ostomy Status Bridge/Vermilion;Functioning;Moist;Established Stoma Color Red Peristomal Skin Intact Interventions Change pouch;Cleanse skin;Cleanse stoma Patient at ostomy clinic for reinforcement of ileostomy teaching, s/p ileostomy 4 weeks ago, patient became anxious yesterday relating that stoma changed color , but stool was still being produced in pouching system. Ostomy status as above, patient relates tthat she is now getting 3-4 days wear time, relates that she is comfortable with pouch change. All ostomy teaching per Grannis folder thatwas given to patient previously. Reinforced how to [...] with patient was 60 minutes. Ostomy Supplies: Sujata Red Soft Convex Pouching System Sujata Adapt Oval Convex Ring #[id number] Stoma Powder Cavilon Barrier Wipes documented in this encounter Plan of Treatment Upcoming Encounters Date Type Department Care Team (Late st Contact Info) Description 07/17/2024 11:00 AM EDT Appointment [facility] Wound & Ostomy Therapy 1 [place] [address] 08/28/2024 9:15 AM EDT Office Visit [facility] Urology - [address] [place] [address] Chandrika Santana, EMBROIDERY SUPERVISOR [address] [place] [address] 04/17/2025 8:30 AM EDT Office Visit [facility] Cardiology - [place] [address] [place] [address] Tamara Sow PA-C [address] [place] [address] documented as of this encounter Visit Diagnoses Not on filedocumented in this encounter Care Teams Barrel Rifler Relationship Specialty Start Date End Date Deandra Lopez, EMBROIDERY SUPERVISOR [address] [place] [address] PCP - General Nurse Practitioner 06/04/24 documented as of this encounter
--- OUTSIDE RECORDS SUMMARY | 2024-07-11 14:15 | XMS_ITS | Encounter Summary ---
Author Organization [facility] [employer] Address [address] [place] [address] Care Team Providers Care Credit Director Name Role Phone Deandra Lopez APRN Primary Care Provider +1- [phone] Reason for Visit * Reason Comments Urinary Retention New Patient * Consultation (Routine) - Closed Specialty Diagnoses / Procedures Referred By Contac t Referred To Contact Urology Diagnoses Bladder retention Dennis Diaz MD [address] [place] [address] Phone: tel: fax: [facility] Urology - [address] [facility] [address] [place] [address] Phone: tel: fax: Referral ID Status Reason Start Date Expiration Date V isits Requested Visits Authorized [id number] Closed Specialty Services Required 07/04/2024 07/04/2025 1 1 Encounter Details Date Type Department Care Team (Late st Contact Info) Description 07/11/2024 2:15 PM EDT Office Visit [facility] Urology - [address] [facility] [place] [address] Ghislaine Santana APRN [address] [place] [address] Bladder pain (Primary Dx) Social History Tobacco Use Types Packs/Day Years [...] your living situation today? I have a [facility] place to live 05/22/2024 Think about [...] Do you speak a language other than Congolese at [facility]? No 05/22/2024 Do you want help [...] Sign Reading Time Taken Comments Blood Pressure 106/69 07/11/2024 1:17 PM EDT Pulse - - Temperature - - Respiratory Rate - - Oxygen Saturation - - Inhaled Oxygen Concentration - - Weight 82.1 kg (181 lb) 07/11/2024 1:17 PM EDT Height 165.1 cm (5' 5 ) 07/11/2024 1:17 PM EDT Body Mass Index 30.12 07/11/2024 1:17 PM EDT documented in this encounter Progress Notes * Ghislaine Max, ADVERTISING COPYWRITER - 07/11/2024 2:15 PM EDT Subjective: Patient ID: Demetra Diaz is a 44 y.o. female. Chief Complaint: Urinary Retention (New Patient) Patient is a 44 year old female in clinic for bladder pain. She had ileostomy procedure about 8 weeks ago. She has been experiencing bladder pain very frequently that is worse when bladder is full. She states pain bends her over at times. When she voids she feels like urine starts and stops. She denies dysuria or gross hematuria. She does drink moderate coffee, tea, david daily. Recent CT imaging 06/04/24 showed normal urinary bladder. UA today in clinic normal. She is currently on Myrbetriq 50 mg daily. She has had bladder sling in past. History lumbar surgery, total hysterectomy in past. Review of Systems Constitutional: Negative. Negative for fever. Respiratory: Negative. Negative for shortness of breath. Cardiovascular: Negative. Negative for chest pain. Gastrointestinal: Negative. Genitourinary: Positive for dyspareunia. Bladder pain. Musculoskeletal: Negative. Neurological: Negative. Psychiatric/Behavioral: Negative. Patient Active Problem List Diagnosis Date Noted Abdominal pain 06/05/2024 Intra-abdominal fluid collection 06/04/2024 Constipation 05/22/2024 Anxiety Chest pain CPAP (continuous positive airway pressure) dependence Depression Diabetes (HCC) Dizziness WIGGINS (dyspnea on exertion) Edema GERD (gastroesophageal reflux disease) HLD (hyperlipidemia) HTN (hypertension) Hypothyroidism IBS (irritable bowel syndrome) Migraines BETTY (obstructive sleep apnea) PTSD (post-traumatic stress disorder) Tachycardia Vitamin D deficiency Past Medical History: Diagnosis Date Anxiety Chest pain CPAP (continuous positive airway pressure) dependence Depression Diabetes (HCC) Dizziness WIGGINS (dyspnea on exertion) Edema GERD (gastroesophageal reflux disease) HLD (hyperlipidemia) HTN (hypertension) Hypothyroidism IBS (irritable bowel syndrome) Migraines BETTY (obstructive sleep apnea) PTSD (post-traumatic stress disorder) Tachycardia Vitamin D deficiency Past Surgical Hx: she Past Surgical History: Procedure Laterality Date BACK SURGERY CARPAL TUNNEL RELEASE Bilateral SECTION CHOLECYSTECTOMY COLECTOMY COLONOSCOPY HYSTERECTOMY NECK SURGERY spinal cord stimulation SPINAL CORD STIMULATOR REMOVAL Social Hx:she reports that she has quit smoking. Her smoking use included cigarettes. She has neverused smokeless tobacco. She reports that she does not drink alcohol and does not use drugs. Social History Social History Narrative Not on file Family Hx: her family history includes Cancer in her paternal grandfather and another family member; Coronary artery disease in her mother; Diabetes in her father and another family member; Hyperlipidemia in her father, maternal grandmother, mother, and another family member; Hypertension in her mother; Tuberculosis in her maternal grandfather and maternal grandmother. Allergies Allergen Reactions Paroxetine Hives, Itching, Nausea Only, Palpitations and Shortness Of Breath Other Reaction(s): Dizziness, Headache, Not available Steroids Hives Wellbutrin [Bupropion Hcl] Hives Diclofenac Other (See Comments) Unknown Hydroxyzine Rash Prednisone Rash Pseudoephedrine Palpitations Sumatriptan Palpitations Tape, Permeable Adhesive Rash Current Outpatient Medications on File Prior to Visit Medication Sig Dispense Refill ALPRAZolam (XANAX) 1 MG tablet Take 1 [...] tablet (500 mcg total) by mouth daily. erenumab-aooe (Aimovig Autoinjector) 140 mg/mL AtIn Inject 140 mg under the skin every 28 days. esomeprazole (NexIUM) 40 MG capsule Take 1 capsule (40 mg total) by mouth daily. estradioL (CLIMARA) 0.1 mg/[address] 1 patch on the skin once a week. FLUoxetine (PROzac) 40 MG capsule Take 1 capsule (40 mg total) by mouth daily. icosapent ethyL (VASCEPA) 1 gram capsule Take [...] by mouth 2 (two) times daily. mirabegron (Myrbetriq) 50 mg Tb24 ER tablet Take 1 tablet (50 mg total) by mouth daily. Missing or Non-Formulary Medication Apply 1 Application topically 4 (four) times daily as needed (for Pain) Compounded Cream: amantadine 10%/gabapentin 10%/piroxicam 0.5%/ketamine 4%/prilocaine 5%; apply to affected area as directed. ondansetron (ZOFRAN-ODT) 4 MG disintegrating tablet Take 1 tablet (4 mg total) by mouth every 8 (eight) hours as needed for nausea or vomiting. prazosin (MINIPRESS) 2 MG capsule Take 3 [...] 1 Application topically 2 (two) times daily Applyto affected areas as directed . acetaminophen (TYLENOL) 500 MG tablet Take 2 tablets (1,000 mg total) by mouth every 6 (six) hours as needed for pain or fever. desvenlafaxine succinate (PRISTIQ) 100 MG 24 hr tablet Take 1 tablet (100 mg total) by mouth daily.(Patient not taking: Reported on 07/11/2024.) potassium chloride (KLOR-CON) 20 mEq CR tablet Take 1 tablet (20 mEq total) by mouth daily as needed Take with Lasix as directed. No current facility-administered medications on file prior to visit. Lab Results Component Value Date NA 132 (L) 06/05/2024 K 3.5 06/05/2024 CL 101 06/05/2024 CO2 26 06/05/2024 GLUCOSE 85 06/05/2024 CALCIUM 8.4 06/05/2024 EGFR 109 06/05/2024 WBC 7.5 06/05/2024 RBC 3.67 (L) 06/05/2024 HGB 10.5 (L) 06/05/2024 HCT 31.0 (L) 06/05/2024 MCV 85 06/05/2024 MCH 28.6 06/05/2024 MCHC 33.9 06/05/2024 RDW 12.9 06/05/2024 PLT 284 06/05/2024 MPV 8.3 (L) 06/05/2024 Lab Results Component Value Date COLORU Colorless 06/04/2024 CLARITYU Clear 06/04/2024 SPECGRAV 1.006 06/04/2024 PHUR 6.5 06/04/2024 PROTEINUA Negative 06/04/2024 GLUCOSEU Normal 06/04/2024 KETONESU Negative 06/04/2024 BLOODU Negative 06/04/2024 NITRITE Negative 06/04/2024 UROBILINOGEN Normal 06/04/2024 Results for orders placed during the hospital encounter of 06/04/24 CT ABDOMEN/PELVIS WITH IV CONTRAST Narrative CT OF THE ABDOMEN AND PELVIS HISTORY: [...] abdominal ascites, adenopathy, or acute osseous abnormality. Impression Fluid collection in central pelvis may represent seroma or abscess. Images reviewed, interpreted, and dictated by Dr. John Edouard. Transcribed by Terrance Ascencio. Objective: Vitals: BP 106/69 Ht 1.651 m (5' 5 ) Wt 82.1 kg (181 lb) BMI 30.12 kg/m?? Physical Exam Vitals reviewed. Constitutional: General: She is not in acute distress. Appearance: Normal appearance. Cardiovascular: Rate and Rhythm: Normal rate. Pulmonary: Effort: Pulmonary effort is normal. No respiratory distress. Abdominal: Palpations: Abdomen is soft. Musculoskeletal: General: Normal range of motion. Skin: General: Skin is warm and dry. Neurological: General: No focal deficit present. Mental Status: She is alert and oriented to person, place, and time. Psychiatric: Mood and Affect: Mood normal. Behavior: Behavior normal. Thought Content: Thought content normal. Judgment: Judgment normal. Assessment: Demetra was seen today for urinary retention. Diagnoses and all orders for this visit: Bladder pain - Ambulatory referral to Urology - POCT urinalysis dipstick Patient placed in lithotomy position, urethra opening cleansed with betadine, straight #14 catheterlubricated and inserted into urethral opening, catheter advanced to urinary bladder with ease, 50 ml residual urine noted. Catheter removed from urethra with ease, patient tolerated well. Plan: UA today with normal findings. Cath PVR with about 50 ml residual urine noted. Will discontinue Myrbetriq. Begin Oxybutynin 5 mg Q8 hours PRN bladder pain. There are no Patient Instructions on file for this visit. Immunization History Administered Date(s) Administered Covid-19 Vaccine MRNA (PF) 18yr+ (Moderna)([id number]) 10/30/2020, 11/27/2020, 04/20/2021 Outpatient Encounter Medications as of 07/11/2024 Medication Sig Dispense Refill ALPRAZolam (XANAX) 1 MG tablet Take 1 [...] tablet (500 mcg total) by mouth daily. erenumab-aooe (Aimovig Autoinjector) 140 mg/mL AtIn Inject 140 mg under the skin every 28 days. esomeprazole (NexIUM) 40 MG capsule Take 1 capsule (40 mg total) by mouth daily. estradioL (CLIMARA) 0.1 mg/[address] 1 patch on the skin once a week. FLUoxetine (PROzac) 40 MG capsule Take 1 capsule (40 mg total) by mouth daily. icosapent ethyL (VASCEPA) 1 gram capsule Take [...] by mouth 2 (two) times daily. mirabegron (Myrbetriq) 50 mg Tb24 ER tablet Take 1 tablet (50 mg total) by mouth daily. Missing or Non-Formulary Medication Apply 1 Application topically 4 (four) times daily as needed (for Pain) Compounded Cream: amantadine 10%/gabapentin 10%/piroxicam 0.5%/ketamine 4%/prilocaine 5%; apply to affected area as directed. ondansetron (ZOFRAN-ODT) 4 MG disintegrating tablet Take 1 tablet (4 mg total) by mouth every 8 (eight) hours as needed for nausea or vomiting. prazosin (MINIPRESS) 2 MG capsule Take 3 [...] 1 Application topically 2 (two) times daily Applyto affected areas as directed . acetaminophen (TYLENOL) 500 MG tablet Take 2 tablets (1,000 mg total) by mouth every 6 (six) hours as needed for pain or fever. desvenlafaxine succinate (PRISTIQ) 100 MG 24 hr tablet Take 1 tablet (100 mg total) by mouth daily.(Patient not taking: Reported on 07/11/2024.) potassium chloride (KLOR-CON) 20 mEq CR tablet Take 1 tablet (20 mEq total) by mouth daily as needed Take with Lasix as directed. No facility-administered encounter medications on file as of 07/11/2024. Return in about 4 weeks (around 08/08/2024). I have reviewed the following as needed: Tobacco Allergies Meds Problems Med Hx Surg Hx Fam Hx Ghislaine Santana APRN 07/11/2024 documented in this encounter Miscellaneous Notes * Addendum Note - Ghislaine Santana APRN - 07/11/2024 2:15 PM EDTAddended by: GHISLAINE SANTANA on: 07/11/2024 02:12 PM Modules accepted: Orders documented in this encounter Plan of Treatment Upcoming Encounters Date Type Department Care Team (Late st Contact Info) Description 07/17/2024 11:00 AM EDT Appointment [facility] Wound & Ostomy Therapy 1 [place] [address] 08/28/2024 9:15 AM EDT Office Visit [facility] Urology - [address] [place] [address] Ghislaine Santana APRN [address] [place] [address] 04/17/2025 8:30 AM EDT Office Visit [facility] Cardiology - [place] [address] [place] [address] Tamara Sow PA-C [address] [facility] [address] [place] [address] Scheduled Orders Name Type Priority Associated Diagnoses Orde r Schedule BLADDER CATHETERIZATION Procedures Routine Bladder pain Ordered: 07/11/2024 documented as of this encounter Procedures Procedure Name Priority Date/Time Associated Diagnosis Comments POCT URINALYSIS, AUTO W/O SCOPE Routine 07/11/2024 1:31 PM EDT Bladder pain documented in this encounter Results * (ABNORMAL) POCT urinalysis dipstick (07/11/2024 1:31 PM EDT) Glucose Urine, POC Negative Negative Bilirubin Urine, POC Negative Negative Ketones Urine, POC Negative Negative Specific [place] Urine, POC 1.020 SG Ratio 1.005 SG Ratio, 1.010 SG Ratio, 1.015 SG Ratio, 1.020 SG Ratio, 1.025 SG Ratio, 1.030 SG Ratio Blood Urine, POC Negative Negative pH, Urine 6.0 pH units 5.0 pH units, 5.5 pH units, 6.0 pH units, 6.5 pH units, 7.0 pH units, 7.5 pH units, 8.0 pH units Protein Urine, POC Trace(A) Negative Urobilinogen Urine, POC 0.2 mg/dL 0.2 mg/dL, 1 mg/dL Nitrite Urine, POC Negative Negative Leukocyte Esterase Urine, POC Negative Negative 07/11/2024 1:31 PM EDT Ghislaine Santana ADVERTISING COPYWRITER POINT OF CARE TEST ORDERABLES Final Result documented in this encounter Visit Diagnoses Diagnosis Bladder pain- Primary Other symptoms involving urinary system documented in this encounter Care Teams Credit Director Relationship Specialty Start Date End Date Deandra Lopez, ADVERTISING COPYWRITER [address] [place] [phone] PCP - General Nurse Practitioner 06/04/24 documented as of this encounter
--- OUTSIDE RECORDS SUMMARY | 2024-07-16 15:11 | XMS_ITS | Encounter Summary ---
Author Organization [facility] Address [address] [place] [address] Care Team Providers Care Direct Support Staff Member Name Role Phone Deandra Lopez APRN Primary Care Provider +1- [phone] Deandra Lopez APRN Primary Care Provider +1- [phone] Encounter Details Date Type Department Care Team (Late st Contact Info) Description 08/04/2021 Transcribed Document [facility] [place] [address] ProviderElaine MD [address] [place] [address] Social History Tobacco Use Types Packs/Day Years Used Date Smoking Tobacco: Never Assessed Comments Unknown Sex and Gender Information Value Date Recorded Sex Assigned at Female 12/08/2021 2:39 PM CDT Legal Sex Female 5:20 PM CDT Gender Identity Female 12/08/2021 2:39 PM CDT Sexual Orientation Straight 12/08/2021 2: 39 PM CDT documented as of this encounter Miscellaneous Notes * Cerner Conversion Note - Historical ProviderMD - 08/04/2021 6:36 PM CDT Pain Assessment Entered On: 08/05/2021 5:13 EDT Performed On: 08/04/2021 20:48 EDT by Nubia French Lpn Intervention Information: morphine Performed by JOSELINE ABDI NON EMP RN on 08/04/2021 20:18:00 EDT morphine,2mg IV Push,Right Hand,Pain (Severe 7-10) Pain Assessment Pain Assessment : Follow-up assessment Pain Scale Goal : 4 Pain Scale Used : 0-10 Scale Nubia French Lpn - 08/05/2021 5:13 EDT Pain Scale Intensity : 1 Nubia French Lpn - 08/05/2021 5:13 EDT Image 4 - Images currently included in the form version of this document have not been included in the text rendition version of the form. documented in this encounter Plan of Treatment Upcoming Encounters Date Type Department Care Team (Late st Contact Info) Description 07/17/2024 11:00 AM EDT Appointment [facility] Wound & Ostomy Therapy [address] [place] [address] 08/28/2024 9:15 AM EDT Office Visit [facility] Urology - [address] [place] [address] Chandrika Santana, LIBRARY ACQUISITIONS TECHNICIAN [address] [place] [address] 04/17/2025 8:30 AM EDT Office Visit [facility] Cardiology - [place] [address] [place] [address] Tamara Sow PA-C [address] [facility] [address] [place] [address] documented as of this encounter Visit Diagnoses Not on filedocumented in this encounter Care Teams Direct Support Staff Member Relationship Specialty Start Date End Date Deandra Lopez APRN PCP - General Nurse Practitioner 04/18/22 06/03/24 Deandra Lopez, LIBRARY ACQUISITIONS TECHNICIAN [address] [place] [address] PCP - General Nurse Practitioner 06/04/24 documented as of this encounter
--- OUTSIDE RECORDS SUMMARY | 2024-07-16 15:11 | XMS_ITS | Encounter Summary ---
Author Organization [facility] Address [address] [place] [address] Care Team Providers Care Combiner Name Role Phone Deandra Lopez APRN Primary Care Provider +1- [phone] Deandra Lopez APRN Primary Care Provider +1- [phone] Encounter Details Date Type Department Care Team (Late st Contact Info) Description 08/04/2021 Transcribed Document [facility] Family Medicine [facility] [place] [address] ProviderElaine MD [address] [place] [address] Social History Tobacco Use Types [...] Conversion Note - Historical ProviderMD - 08/04/2021 4:03 PM CDT [facility] Main OR PACU Summary Primary Physician: HEATH ROBLEDO MD-PRO Finalized Date/Time: 08/04/21 19:19:11 Pt. Name: DEMETRA MARTINEZ D.O.B./Sex: 1980 Female Med Rec #: [id number] Physician: HEATH ROBLEDO MD-PRO Financial #: [id number] Pt. Type: I Room/Bed: [facility]/ Admit/Disch: 08/04/21 07:29:00 - Institution: [facility] Main OR PACU I Case Times Entry 1 In PACU I 08/04/21 18:25:00 Ready for PACU 08/04/21 19:00:00 Discharge Discharge from PACU 08/04/21 19:00:00 I Last Modified By: LOLA MARTE RN 08/04/21 19:18:15 Finalized By: LOLA MARTE, RN Document Signatures Signed By: LOLA MARTE RN 08/04/21 19:19 Electronically signed by [facility] Conversion Physical Anthropologist Cerner at 05/27/2022 4:45 PM CDT documented in this encounter Plan of Treatment Upcoming Encounters Date Type Department Care Team (Late st Contact Info) Description 07/17/2024 11:00 AM EDT Appointment [facility] Wound & Ostomy Therapy [address] [place] [address] 08/28/2024 9:15 AM EDT Office Visit [facility] Urology - [address] [place] [address] Chandrika Santana, ELECTRICIAN HELPER [address] [place] [address] 04/17/2025 8:30 AM EDT Office Visit [facility] Cardiology - [place] [address] [place] [address] Tamara Sow PA-C [address] [facility] [address] [place] [address] documented as of this encounter Visit Diagnoses Not on filedocumented in this encounter Care Teams Combiner Relationship Specialty Start Date End Date Deandra Lopez APRN PCP - General Nurse Practitioner 04/18/22 06/03/24 Deandra Lopez, ELECTRICIAN HELPER [address] [place] [address] PCP - General Nurse Practitioner 06/04/24 documented as of this encounter
--- OUTSIDE RECORDS SUMMARY | 2024-07-16 15:11 | XMS_ITS | Encounter Summary ---
Author Organization [facility] Address [address] [place] [address] Care Team Providers Care Program Control Analyst Name Role Phone Deandra Lopez APRN Primary Care Provider +1- [phone] Deandra Lopez APRN Primary Care Provider +1- [phone] Encounter Details Date Type Department Care Team (Late st Contact Info) Description 08/04/2021 Transcribed Document [facility] [place] Family Medicine [facility] [place] [address] ProviderElaine MD [address] [place] [address] Social History Tobacco Use Types [...] Conversion Note - Historical ProviderMD - 08/04/2021 12:40 PM CDT [facility] Main OR Preop Summary Primary Physician: HEATH ROBLEDO MD-PRO Finalized Date/Time: 08/04/21 15:45:11 Pt. Name: DEMETRA MARTINEZ.O.B./Sex: 1980 Female Med Rec #: [id number] Physician: HEATH ROBLEDO MD-PRO Financial #: [id number] Pt. Type: I Room/Bed: ASA/5 Admit/Disch: 08/04/21 07:29:00 - Institution: [facility] PreOp Case Times Entry 1 In Preop 08/04/21 10:47:00 Ready for Holding n/a Room Patient Ready for 08/04/21 14:12:00 Surgery Patient Out of Preop 08/04/21 15:26:00 Patient Out of n/a Holding Room Last Modified By: DAVI HENSON RN 08/04/21 15:45:09 [facility] PreOp Case Times Audit 08/04/21 15:45:09 Marketing Secretary: [email or web address] Modifier: [email or web address] <+> 1 Patient Out of Preop 08/04/21 14:12:22 Marketing Secretary: CARLOS A Modifier: [email or web address] <+> 1 Patient Ready for Surgery Finalized By: DAVI HENSON RN Document Signatures Signed By: DAVI HENSON RN 08/04/21 15:45 Electronically signed by Anahy [facility] Conversion Metal Fence Erector Cerner at 05/27/2022 4:41 PM CDT documented in this encounter Plan of Treatment Upcoming Encounters Date Type Department Care Team (Late st Contact Info) Description 07/17/2024 11:00 AM EDT Appointment [facility] Wound & Ostomy Therapy [address] [place] [address] 08/28/2024 9:15 AM EDT Office Visit [facility] Urology - [address] [place] [address] Chandrika Santana, MACHINE DYER [address] [place] [address] 04/17/2025 8:30 AM EDT Office Visit [facility] Cardiology - [place] [address] [place] [address] Tamara Sow PA-C [address] [facility] [address] [place] [address] documented as of this encounter Visit Diagnoses Not on filedocumented in this encounter Care Teams Program Control Analyst Relationship Specialty Start Date End Date Deandra Lopez APRN PCP - General Nurse Practitioner 04/18/22 06/03/24 Deandra Lopez, MACHINE DYER [address] [place] [address] PCP - General Nurse Practitioner 06/04/24 documented as of this encounter
--- OUTSIDE RECORDS SUMMARY | 2024-07-16 15:11 | XMS_ITS | Encounter Summary ---
Author Organization [facility] Address [address] [place] [address] Care Team Providers Care Pbx Operator Name Role Phone Deandra Lopez APRN Primary Care Provider +1- [phone] Deandra Lopez APRN Primary Care Provider +1- [phone] Encounter Details Date Type Department Care Team (Late st Contact Info) Description 08/04/2021 Transcribed Document [facility] [place] Family [place] [address] ProviderElaine MD [address] [place] [address] Social History Tobacco Use Types [...] Conversion Note - Historical ProviderMD - 08/04/2021 6:06 PM CDT Consult Phone Call Documentation Entered On: 08/04/2021 20:44 EDT Performed On: 08/04/2021 18:06 EDT by ADEBAYO GONZALEZ Phone Call for Consults Consult Phone Call/Page Attempt : Other: spoke with ADEBAYO Hector - 08/04/2021 20:43 EDT Electronically signed by Anahy [facility] Conversion Solder Deposit Operator Agata at 05/27/2022 4:37 PM CDT documented in this encounter Plan of Treatment Upcoming Encounters Date Type Department Care Team (Late st Contact Info) Description 07/17/2024 11:00 AM EDT Appointment [facility] Wound & Ostomy Therapy [address] [place] [address] 08/28/2024 9:15 AM EDT Office Visit [facility] Urology - [address] [place] [address] Chandrika Santana, DERMATOLOGIST MANAGING PARTNER [address] [place] [phone] 04/17/2025 8:30 AM EDT Office Visit [facility] Cardiology - [place] [address] [place] [address] Tamara Sow PA-C [address] [facility] [address] [place] [address] documented as of this encounter Visit Diagnoses Not on filedocumented in this encounter Care Teams Pbx Operator Relationship Specialty Start Date End Date Deandra Lopez, KRISTYN PCP - General Nurse Practitioner 04/18/22 06/03/24 Deandra Lopez, DERMATOLOGIST MANAGING PARTNER [address] [place] [address] PCP - General Nurse Practitioner 06/04/24 documented as of this encounter
--- OUTSIDE RECORDS SUMMARY | 2024-07-16 15:11 | XMS_ITS | Encounter Summary ---
Author Organization [facility] Address [address] [place] [address] Care Team Providers Care Recreational Specialist Name Role Phone Deandra Lopez APRN Primary Care Provider +1- [phone] Deandra Lopez APRN Primary Care Provider +1- [phone] Encounter Details Date Type Department Care Team (Late st Contact Info) Description 08/04/2021 Transcribed Document [facility] Family Medicine [facility] [place] [address] ProviderElaine MD [address] [place] [address] Social History Tobacco Use Types Packs/Day [...] Conversion Note - Historical ProviderMD - 08/04/2021 5:54 PM CDT Patient: DEMETRA MARTINEZ Age: 41 Years Sex: Female : 1980 CSGA Pre Op Diagnosis: Colonic inertia Post Op Diagnosis: Same Procedure: Subtotal colectomy and ileorectal anastomosis Oracle Adf Developer: Tyree Indications: This is a 41-year-old female who has problems with chronic constipation. I have now followed her for quite some time and have done an extensive work-up on her and she has failed all conservative management for managing her constipation. She has a positive sits marker test. She had 18 markers remaining at day 5. These were scattered throughout the colon. While she did have a difficult time passing the balloon and she had paradoxical contraction of the anorectal ring on dynamic MRI, I felt it worthwhile giving her a chance at a subtotal colectomy and ileorectal anastomosis. However, she understood that with dysfunction in her deprecatory process she may continue to have problems with constipation due to outlet obstruction postoperatively. This may be helped out with physical therapy which she has done in the past. Nonetheless if I did not give her the chance for a subtotal colectomy and ileorectal anastomosis, she would end up with a permanent ileostomy. This seems like a good compromise and if it does not work she can always come back and have this converted to an ileostomy. Findings: Patient was found to have a redundant sigmoid colon. I found her splenic flexure to be very high riding and just beneath her spleen. This made it difficult to mobilize her splenic flexure. She had an absent gallbladder. Her colon was stuck to the bed of her liver where the gallbladder was. She had a normal-appearing small bowel and appendix. She had copious amounts of omentum. I did remove about half of it as I still had plenty of length to reach back to the pelvis. She had a previous hysterectomy and BSO. Specimen: Colon. EBL: Minimal Fluids: 2 L Sponge, needle, and instrument count: Correct by nursing count at end of case. Procedure in Detail: Patient was correctly identified, brought to the operating room, placed in a supine position on the OR table. They underwent induction of anesthesia and were intubated. An OG tube and Lopes catheter were placed for the case. Legs were positioned in Yellow Fin stirrups and all pressure points were checked. Pt. was prepped and draped in the usual sterile fashion. An appropriate timeout performed. The procedure began with a low midline incision which was carried down through the subcutaneous tissues to enter into the peritoneal cavity. An initial exploration of the abdomen was undertaken of noted findings. I began by identifying the sigmoid colon and splaying out the lateral attachments. I used electrocautery and dissected this up off of the retroperitoneum. The left ureter and left gonadal vessels were swept out of my field and I carried my dissection from a lateral to medial perspective all the way up towards the splenic flexure releasing the lateral attachments. Once I found that the splenic flexure was high riding and underneath the spleen, I needed to extend the incision just above the umbilicus in order to safely get the splenic flexure down and not cause injury to the spleen. Once I done this I was able to bring the splenic flexure into my field and divide the omentum off of the transverse colon. Once I had done this, I switched sides and mobilized the right colon up into the midline and took down the hepatic flexure. The hepatic flexure was densely adherent to the patient's gallbladder bed where her gallbladder had previously lied up against the liver. However, with careful dissection I was able to mobilize the right colon up into the field and divide the omentum off of the proximal half of the transverse colon. This left the entire colon mobilized. I performed a high ligation of the ileocolic pedicle. I then divided the distal small bowel after taking the ligament of Treitz down. A Oniel clamp was left on this so as not to cause any spillage. I then identified the ileocolic pedicle and isolated this. I clamped it with 3 Maddy clamps and doubly ligated it. Once this was done, I was able to use the LigaSure impact to divide the small bowel mesentery and the mesocolon all the way around the colon close to the bowel until I got to the sigmoid colon. At this point I placed a Diana retractor and got good exposure of the pelvis with some Trendelenburg position. I was able to pass a sizer up and see that it passed up into the top of the rectum quite easily. I then increased the size of the sizer and saw that this fit nicely as well. I identified a spot just at the top of the rectum where the tinea splayed and isolated the rectum in this area from the mesorectum below it. I used a contour stapler to come across the rectum. I then used LigaSure impact to divide the mesorectum and the remaining mesocolon. I should note that I was well above the ureters and I did not take the inferior mesenteric artery pedicle as this was a benign case. The colon was then handed off the field. I packed both the splenic flexure and hepatic flexure with gauze to come back and evaluate later for any bleeding. I sutured in the anvil of a 28 CEEA stapler using a 2-0 Prolene stitch in a pursestring technique into the terminal ileum. There was good the blood supply at the terminal ileum and at the divided rectal stump. I then created an end-to-end anastomosis without tension or twist. I did this by splaying of the small bowel mesentery to assure myself of no twists. Once the anastomosis was made it was leak tested by proctoscopy and there was no leak. I visualized via proctoscopy and saw a healthy bowel on both sides of a circumferentially intact anastomotic ring. At this point I returned to the abdomen and checked the left and right upper quadrant for bleeding and there were dry laps. I irrigated the abdomen with copious amounts of saline. All with clear return. I did note a small clot at the level of the anastomosis from the fat of the mesorectum. I saw nothing bleeding in this area, but felt that Floseal would be helpful and we placed this in this area. At this point the small bowel was returned to normal anatomic position. The omentum was placed over the small bowel. The fascia was closed with a #1 looped PDS. The wound was irrigated. Gerhard's fascia was closed with 3-0 Vicryl stitches in interrupted fashion. A 3-0 Monocryl stitch was used to reapproximate the skin. Finally, a Prineo dressing was placed. The patient was awakened, extubated, and brought to recovery room in good condition. documented in this encounter Plan of Treatment Upcoming Encounters Date Type Department Care Team (Late st Contact Info) Description 07/17/2024 11:00 AM EDT Appointment [facility] Wound & Ostomy Therapy [address] [place] [phone] 08/28/2024 9:15 AM EDT Office Visit [facility] Urology - [address] [place] [address] Chandrika Santana, BEAD MAKER [address] [place] [address] 04/17/2025 8:30 AM EDT Office Visit [facility] Cardiology - [place] [address] [place] [address] Tamara Sow PA-C [address] [facility] [address] [place] [address] documented as of this encounter Visit Diagnoses Not on filedocumented in this encounter Care Teams Recreational Specialist Relationship Specialty Start Date End Date Deandra Lopez APRN PCP - General Nurse Practitioner 04/18/22 06/03/24 Deandra Lopez, BEAD MAKER [address] [place] [address] PCP - General Nurse Practitioner 06/04/24 documented as of this encounter
--- OUTSIDE RECORDS SUMMARY | 2024-07-16 15:11 | XMS_ITS | Encounter Summary ---
Author Organization [facility] Address [address] [place] [address] Care Team Providers Care Prop Making Supervisor Name Role Phone Deandra Schulz APRN Primary Care Provider +1- [phone] Deandra Schulz APRN Primary Care Provider +1- [phone] Encounter Details Date Type Department Care Team (Late st Contact Info) Description 08/04/2021 Transcribed Document [facility] [place] [address] ProviderElaine MD [address] [place] [address] Social History Tobacco Use Types Packs/Day [...] Conversion Note - Historical ProviderMD - 08/04/2021 10:06 PM CDT Patient: DEMETRA MARTINEZ Age: 41 Years Sex: Female : 1980 Chief Complaint 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 Primary Care Provider DEANDRA SCHULZ NP-FAM History of Present Illness 41-year-old female with a history of zez-kbmrdap-ubsveihfn type 2 diabetes bipolar, depression, CAD, hyperlipidemia, hypothyroidism presents [facility] [place] for subtotal colectomy with ileorectal anastomosis secondary to chronic constipation. She tolerated procedure well, now complains of only minor postoperative incisional pain. L in character, mild to moderate intensity, constant, nonradiating, no exacerbating relieving factors. She takes metformin for diabetes, she takes Prazosin, Vraylar, Xanax, BuSpar and Lamictal for her bipolar and depression. She takes levothyroxine for her hypothyroidism. She takes Imdur for her history of unstable angina. Prazosin, Vraylar, Xanax, BuSpar and Lamictal for her bipolar and depression. She takes levothyroxine for her hypothyroidism. She takes Imdur for her history of unstable angina. Medicine service was consulted to take over care for management of her chronic conditions while admitted. Review of Systems A 14 point review of systems was obtained and is noncontributory except as noted above. All past medical, social and family history reviewed. Vital Signs T: 36.2 ??C TMIN: 36.2 ??C TMAX: 36.7 ??C HR: 73(Monitored) RR: 17 BP: 97/53 SpO2: 100% HT: 164.47 cm WT: 110 kg BMI: 40.7 Oxygen Settings (Last) Oxygen Therapy Mode: Nasal cannula (08/04/21 20:38:00) Oxygen Flow Rate: 2 Liter/Min (08/04/21 20:38:00) Physical Exam Based on new provisions and guidance offered in setting of COVID 19 outbreak and in order to preserve personal protective equipment in accordance with the flexibilities announced by [facility] limited examination is performed. General: Well appearing, not diaphoretic, no acute distress Head: Normocephalic, atraumatic Eyes: No ocular discharge, no scleral injection, no icterus Ears: Normal external auricles Nose: No rhinorrhea, no epistaxis Throat: Not examined, no difficulty swallowing Pulm: No apparent respiratory distress Cardio: Normal rate, regular rhythm, no peripheral edema GI: non-distended Neuro: Alert and oriented, cn2-12 grossly intact, strength 5/5 bilaterally. Psych: Cooperative Skin: No jaundice Assessment/Plan -Status post partial colectomy with ileorectal anastomosis -Doz-unmkdap-ydkvniuad type 2 diabetes, insulin for glucose control -As needed antihypertensives -Advance diet as tolerated, surgery consulted for postoperative management recommendations - Parenteral analgesics for severe pain. Oral analgesics for mild to moderate pain. - Continue to monitor electrolytes and replete as appropriate - Pt low risk for vte, SCD for vte ppx. - Continue medications for chronic problems - Pt will require inpatient admission for >48 hrs for work up and stabilization of their condition - NSOC: Remains admitted - seen 08/04/2021 21:58:13 I have personally reviewed pertinent laboratory, ekg and imaging results, as well as documentation in the patient's emr. Laboratory and imaging orders per the above plan have been addressed, see orders below. Home medications have been reviewed. Patient's case, assessment and plan have been discussed on this date with ED provider. Code Status Start: 08/04/21 21:12:00 EDT, Full Code, Continuous Order 1. S/P colectomy 2. Chronic idiopathic constipation 3. Diabetes mellitus type 2, noninsulin dependent 4. Hyperlipidemia 5. Anxiety / depression / Bipolar / PTSD 6. Thyroid disease 7. GERD - Gastro-esophageal reflux disease Orders: ALPRAZolam, 1 mg, Oral, Tab, TID, Routine, Start 08/04/21 21:00:00 EDT, 08/04/21 20:59:00 EDT atorvastatin, 80 mg, Oral, Tab, At Bedtime, Routine, Start 08/04/21 21:00:00 EDT, 08/04/21 20:59:00 EDT busPIRone, 10 mg, Oral, Tab, TID, Routine, Start 08/04/21 21:00:00 EDT, 08/04/21 20:59:00 EDT cariprazine, 3 mg, Oral, Cap, Daily, Routine, Start 08/05/21 9:00:00 EDT, 08/04/21 20:59:00 EDT desvenlafaxine, 100 mg, Oral, ER Tab, Daily, Routine, Start 08/05/21 9:00:00 EDT, 08/04/21 20:59:00 EDT estradiol, 2 mg, Oral, Tab, Daily, Routine, Start 08/05/21 9:00:00 EDT, 08/04/21 20:59:00 EDT glucagon, 1 mg, IntraMuscular, Inj, Q15Min, PRN for Other (See Comment), Routine, Start 08/04/21 21:47:00 EDT, 08/04/21 21:47:00 EDT glucose, 25 Gram, IV Push, Inj, Q15Min, PRN for Other (See Comment), Routine, Start 08/04/21 21:47:00 EDT, 08/04/21 21:47:00 EDT glucose, 25 Gram, IV Push, Inj, Q15Min, PRN for Other (See Comment), Routine, Start 08/04/21 21:47:00 EDT, 08/04/21 21:47:00 EDT glucose, 16 Gram, 4 Tab, Chew, Tab, Q15Min, PRN for Other (See Comment), Routine, Start 08/04/21 21:47:00 EDT glucose, 15 Gram 37.5 mL, Oral, Gel, Q15Min, PRN for Other (See Comment), Routine, Start 08/04/21 21:47:00 EDT, 08/04/21 21:47:00 EDT glucose, 25 Gram, IV Push, Inj, Q15Min, PRN for Other (See Comment), Routine, Start 08/04/21 21:47:00 EDT, 08/04/21 21:47:00 EDT glucose, 12.5 Gram, IV Push, Inj, Q15Min, PRN for Other (See Comment), Routine, Start 08/04/21 21:47:00 EDT, 08/04/21 21:47:00 EDT hydrALAZINE, 10 mg, IV Push, Inj, Q6H, order duration: 24 Hour(s), PRN for Hypertension, Routine, Start 08/04/21 21:42:00 EDT, Stop 08/05/21 21:41:00 EDT, 08/04/21 21:42:00 EDT hydrOXYzine, 50 mg, Oral, Cap, TID, Routine, Start 08/04/21 21:00:00 EDT, 08/04/21 20:59:00 EDT icosapent, Oral, Cap, Daily, Routine, Start 08/05/21 9:00:00 EDT, 1 Gm, 08/04/21 20:59:00 EDT insulin lispro, Scale A:, SubCutaneous, Inj, AC and at Bedtime, Routine, Start 08/05/21 7:00:00 EDT, At HS give only if FSBG > 180 mg/dL isosorbide mononitrate, 30 mg, Oral, ER Tab, QAM, Routine, Start 08/05/21 6:30:00 EDT, 08/04/21 20:59:00 EDT labetalol, 10 mg, IV Push, Inj, Q6H, order duration: 24 Hour(s), PRN for Hypertension, Routine, Start 08/04/21 21:42:00 EDT, Stop 08/05/21 21:41:00 EDT, 08/04/21 21:42:00 EDT lamoTRIgine, 100 mg, Oral, Tab, BID, Routine, Start 08/04/21 21:00:00 EDT, 08/04/21 20:59:00 EDT levothyroxine, 125 mcg, Oral, Tab, Daily, Routine, Start 08/05/21 6:30:00 EDT, 08/04/21 20:59:00 EDT melatonin, 3 mg, Oral, Tab, At Bedtime, Routine, Start 08/04/21 21:00:00 EDT, 08/04/21 20:59:00 EDT metoprolol, 75 mg, Oral, Tab, BID, Routine, Start 08/04/21 21:00:00 EDT, 08/04/21 20:59:00 EDT mirabegron, 50 mg, Oral, ER Tab, Daily, Routine, Start 08/05/21 9:00:00 EDT, 08/04/21 20:59:00 EDT modafinil, 200 mg, Oral, Tab, QAM, Routine, Start 08/05/21 9:00:00 EDT, 08/04/21 20:59:00 EDT pantoprazole, 40 mg, IV Push, Inj, Daily, order duration: 24 Hour(s), Routine, Start 08/05/21 9:00:00 EDT, Stop 08/06/21 8:59:00 EDT, 08/04/21 21:42:00 EDT prazosin, 8 mg, Oral, Cap, At Bedtime, Routine, Start 08/04/21 21:00:00 EDT, 08/04/21 20:59:00 EDT prazosin, 2 mg, Oral, Cap, Daily, Routine, Start 08/05/21 9:00:00 EDT, 08/04/21 20:59:00 EDT Admit to Inpatient Communication to Nursing Communication to Nursing Communication to Nursing Communication to Nursing Communication to Nursing Consult to Physician Diabetes Education (Nursing) Diet, Adult Intake and Output Strict Lab Order Instructions to Nursing Medication Administration Instructions Notify Provider Notify Provider Notify Provider Patient Position Peripheral IV Insertion POC Glucose Resuscitation Status Seizure Precautions Seizure Precautions Sequential Compression Device VTE Prophylaxis - Medical Heparin 5,000 Units, SubCutaneous, Inj, Q8H, Routine, Start 08/04/21 22:00:00 EDT, 08/04/21 18:36:00 EDT (HEATH ROBLEDO) Sequential Compression Device Start: 08/04/21 21:12:00 EDT, Bilateral, Length: Knee High, While patient is in bed, Continuous Order (SHELLIE CANALES) Problem List/Past Medical History Ongoing Angina Anxiety / depression / Bipolar / PTSD Back pain Bladder spasms Cardiac arrhythmia Chronic idiopathic constipation Diabetes mellitus type II Fast heart beat GERD - Gastro-esophageal reflux disease Hyperlipidemia Irritable bowel syndrome Narcolepsy BETTY (obstructive sleep apnea) Thyroid disease Historical Hemorrhoids Migraine Procedure/Surgical History Back surgery, C-sectionx 2, colonoscopies / EGD, gallbladder, Partial hysterectomy, placement of spinal cord stimulator, removal of both ovaries, tubal, uterine ablation. SN - Proc - Procedure: Colectomy (08/04/21 17:36:41) Home Medications (21) Active BuSpar 10 mg, Oral, TID estradiol 2 mg, Oral, Daily Imdur 30 mg, Oral, QAM lamoTRIgine 100 mg oral tablet 100 mg = 1 Tab, Oral, BID levothyroxine 125 mcg (0.125 mg) oral tablet 125 mcg = 1 Tab, Oral, Daily Lipitor 80 mg oral tablet 80 mg = 1 Tab, Oral, At Bedtime Melatonin 3 mg, Oral, At Bedtime metFORMIN 500 mg, Oral, Daily Metoprolol Tartrate 75 mg, Oral, BID Myrbetriq 50 mg, Oral, Daily NexIUM 40 mg oral delayed release capsule 40 mg = 1 Cap, Oral, Daily prazosin 8 mg, Oral, At Bedtime prazosin 2 mg, Oral, Daily Pristiq 100 mg, Oral, Daily Provigil 200 mg, Oral, QAM Vascepa 1 Gm, Oral, Daily Vascepa 2 Gram, Oral, QPM Vistaril 50 mg, Oral, TID Vitamin D3 50,000 units oral capsule 50,000 Int Units = 1 Cap, Oral, Weekly Vraylar 3 mg, Oral, Daily Xanax 1 mg oral tablet 1 mg = 1 Tab, Oral, TID Allergies Imitrex (rapid heart rate) Sudafed (rapid heart rate, dizziness) oral steroids (skin rash, rapid heart rate) predniSONE (Hives to oral prednisone) pseudoephedrine-triprolidine (rapid heart rapid, dizziness) Social History Alcohol Alcohol Use History No. Substance Abuse Drug Use Hx: No. Use in Last 12 Months: Yes. THC vape pen Recreational Drug Type. Frequency: Socially. Drug Last Use: uses every couple weeks for anxiety. Tobacco 5-9 cigarettes (between 1/4 to 1/2 pack)/day in last 30 days Smoking Status. Never Smokeless Tobacco Status. Years of Use: 20. Packs/Tins Daily: 0.3. Last Used: July 2021. Family History CAD Diagnostic Results No Radiology Results Found Lab Results Test Name Test Result Date/Time Potassium POC 3.9 mmol/L 08/04/2021 11:45 EDT Glucose POC 112 mg/dL (High) 08/04/2021 11:45 EDT Device Comment 1 No action Require 08/04/2021 18:25 EDT Device Comment 1 Notified Nurse RBV 08/04/2021 13:52 EDT Glucose POC2 191 mg/dL (High) 08/04/2021 18:25 EDT Glucose POC2 100 mg/dL 08/04/2021 13:52 EDT ABO/Rh (ECHO) O POS 08/04/2021 11:26 EDT Antibody Screen Negative ABSC 08/04/2021 11:26 EDT Additional Documentation Code Status Start: 08/04/21 21:12:00 EDT, Full Code, Continuous Order Electronically signed by Sean Higginbotham Conversion Supervisor Concrete Pipe Plant Cerner at 05/27/2022 4:44 PM CDT documented in this encounter Plan of Treatment Upcoming Encounters Date Type Department Care Team (Late st Contact Info) Description 07/17/2024 11:00 AM EDT Appointment [facility] Wound & Ostomy Therapy [address] [place] [id number] 08/28/2024 9:15 AM EDT Office Visit [facility] Urology - [address] [place] [address] Chandrika Santana, OPEN PIT QUARRY SUPERVISOR [address] [place] [address] 04/17/2025 8:30 AM EDT Office Visit [facility] Cardiology - [place] [address] [place] [address] Tamara Sow PA-C [address] [facility] [address] [place] [address] documented as of this encounter Visit Diagnoses Not on filedocumented in this encounter Care Teams Prop Making Supervisor Relationship Specialty Start Date End Date Deandra Schulz, OPEN PIT QUARRY SUPERVISOR PCP - General Nurse Practitioner 04/18/22 06/03/24 Deandra Scuhlz, OPEN PIT QUARRY SUPERVISOR [address] [place] [address] PCP - General Nurse Practitioner 06/04/24 documented as of this encounter
--- OUTSIDE RECORDS SUMMARY | 2024-07-16 15:11 | XMS_ITS | Encounter Summary ---
Author Organization [facility] Address [address] [place] [address] Care Team Providers Care Aquatic Director Name Role Phone Deandra Lopez APRN Primary Care Provider +1- [phone] Deandra Lopez APRN Primary Care Provider +1- [phone] Encounter Details Date Type Department Care Team (Late st Contact Info) Description 08/04/2021 Transcribed Document [facility] [place] [address] ProviderElaine MD [address] [place] [address] Social History Tobacco Use Types [...] Conversion Note - Historical ProviderMD - 08/04/2021 9:17 PM CDT Education-Diabetes Topics Entered On: 08/05/2021 5:14 EDT Performed On: 08/04/2021 21:17 EDT by Nubia French Lpn Teaching/Learning Assessment Barriers To Learning : None evident Individuals Taught : Patient Readiness to Learn : Cooperative Nubia French Lpn - 08/05/2021 5:14 EDT Education, Diabetes Diabetes Education Grid Symptom Identification & Action Plan *Q : Verbalizes understanding Acute Complications : Verbalizes understanding Blood Glucose Monitoring : Verbalizes understanding Chronic Complications : Verbalizes understanding Community Resources : Verbalizes understanding Compliance Strategies : Verbalizes understanding Coping/Care Regimen : Verbalizes understanding Cost Issues : Verbalizes understanding Disease Process : Verbalizes understanding DKA Signs and Symptoms : Verbalizes understanding Follow-up Care : Verbalizes understanding Foot Care : Verbalizes understanding Gestational Management : Verbalizes understanding Infection Control : Verbalizes understanding Insulin Administration : Verbalizes understanding Insulin Types/Onset/Duration : Verbalizes understanding Medical Alert Band : Verbalizes understanding Medication Storage : Verbalizes understanding Medication Dosage/Route : Verbalizes understanding Medication Generic/Brand : Verbalizes understanding Medication Precautions : Verbalizes understanding Medication Special Administration : Verbalizes understanding Medication, Preadministration : Verbalizes understanding Monitoring Results : Verbalizes understanding Nutritional Management/Exercise : Verbalizes understanding Oral Agents : Verbalizes understanding Physical Activity : Verbalizes understanding Post-Contrast Instructions : Verbalizes understanding Preconception Care : Verbalizes understanding Management : Verbalizes understanding Psychosocial Adjustment : Verbalizes understanding Sexual Dysfunction : Verbalizes understanding Treatment Plan/Options : Verbalizes understanding Treatment/Management Goal : Verbalizes understanding Urine Ketone Monitoring : Verbalizes understanding Weight Loss : Verbalizes understanding Diabetes, Other : Verbalizes understanding Nubia French [facility] 08/05/2021 5:14 EDT Education, IP Diabetes Diabetes Inpatient Education Grid New Diagnosis : Verbalizes understanding Diabetes : Verbalizes understanding Pre-Diabetes : Verbalizes understanding Gestational Diabetes : Verbalizes understanding Diabetes, Other : Verbalizes understanding Nubia French [facility] 08/05/2021 5:14 EDT inpatient diabetes education grid A1C : Verbalizes understanding Exercise : Verbalizes understanding Home Blood Glucose Monitoring : Verbalizes understanding Hyperglycemia S&S Tx : Verbalizes understanding Hypoglycemia S&S Tx : Verbalizes understanding Insulin Administration : Verbalizes understanding Insulin Pump : Verbalizes understanding Meal Planning : Verbalizes understanding Medical Identification : Verbalizes understanding Medication : Verbalizes understanding Monitoring Diabetes : Verbalizes understanding Mixing insulin : Verbalizes understanding Oral Agents : Verbalizes understanding Overview of Diabetes : Verbalizes understanding Sick Days : Verbalizes understanding Smoking Cessation : Verbalizes understanding Urine Ketone Monitoring : Verbalizes understanding Diabetes Education Topics, Other : Verbalizes understanding Nubia French Rn [facility] 08/05/2021 5:14 EDT Education, Foot Care Asthma Education Grid Care : Verbalizes understanding Circulation : Verbalizes understanding Disease Process : Verbalizes understanding Footwear : Verbalizes understanding Infection Control : Verbalizes understanding Inspection : Verbalizes understanding Plan of Care : Verbalizes understanding Positioning : Verbalizes understanding Reporting : Verbalizes understanding Symptom Identification & Action Plan *Q : Verbalizes understanding Temperature : Verbalizes understanding Treatment : Verbalizes understanding Wound Care : Verbalizes understanding Ed-Foot Care, Other : Verbalizes understanding Nubia French Lpn - 08/05/2021 5:14 EDT Electronically signed by [facility] Conversion Lift Truck Mechanic Cerner at 05/27/2022 4:44 PM CDT documented in this encounter Plan of Treatment Upcoming Encounters Date Type Department Care Team (Late st Contact Info) Description 07/17/2024 11:00 AM EDT Appointment [facility] Wound & Ostomy Therapy [address] [place] [phone] 08/28/2024 9:15 AM EDT Office Visit [facility] Urology - [address] [place] [phone] Chandrika Santana, CONVEYOR MAN [address] [place] [id number] 04/17/2025 8:30 AM EDT Office Visit [facility] Cardiology - [place] [address] [place] [address] Tamara Sow PA-C [address] [facility] [address] [place] [address] documented as of this encounter Visit Diagnoses Not on filedocumented in this encounter Care Teams Aquatic Director Relationship Specialty Start Date End Date Deandra Lopez APRN PCP - General Nurse Practitioner 04/18/22 06/03/24 Deandra Lopez, CONVEYOR MAN [address] [place] [address] PCP - General Nurse Practitioner 06/04/24 documented as of this encounter
--- OUTSIDE RECORDS SUMMARY | 2024-07-16 15:11 | XMS_ITS | Encounter Summary ---
Author Organization [facility] Address [address] [place] [address] Care Team Providers Care Director Of Procurement Name Role Phone Deandra Lopez APRN Primary Care Provider +1- [phone] Deandra Lopez APRN Primary Care Provider +1- [phone] Encounter Details Date Type Department Care Team (Late st Contact Info) Description 08/04/2021 Transcribed Document [facility] [place] [facility] [place] [address] ProviderElaine MD [address] [place], [place] [id number] Social History Tobacco Use Types Packs/Day Years [...] Conversion Note - Historical ProviderMD - 08/04/2021 1:56 PM CDT Peripheral Nerve Block Entered On: 08/04/2021 13:57 EDT Performed On: 08/04/2021 13:56 EDT by CLAUDIA HAYDEN Peripheral Nerve Block Peripheral Nerve Block Start Date/Time : 08/04/2021 14:00 EDT Verbally Confirm Pt, Site, and Procedure : Yes Time Out Pause Time : 08/04/2021 13:59 EDT Site Marked and Visible : Yes Peripheral Nerve Block : Tap Block Laterality : Bilateral Peripheral Nerve Block End Date/Time : 08/04/2021 14:10 EDT CLAUDIA HAYDEN - 08/04/2021 14:12 EDT Site Preparation : Chlorhexidine (Hibiclens) Peripheral Nerve Block Performed by : LUL MURRAY MD-ANS Medication Delivery Method : Single Shot Peripheral Nerve Block Assisted by : CLAUDIA HAYDEN Ultra sound used during insertion : Yes Nerve Block Activity, Patient Tolerance : Good CLAUDIA HAYDEN - 08/04/2021 13:56 EDT Electronically signed by [facility], [facility] Conversion Transformer Mechanic Cerner at 05/27/2022 4:44 PM CDT documented in this encounter Plan of Treatment Upcoming Encounters Date Type Department Care Team (Late st Contact Info) Description 07/17/2024 11:00 AM EDT Appointment [facility] Wound & Ostomy Therapy [address] [place] [address] 08/28/2024 9:15 AM EDT Office Visit [facility] Urology - [address] [place] [address] Chandrika Santana, CASINO CAGE MANAGER [address] [place] [address] 04/17/2025 8:30 AM EDT Office Visit [facility] Cardiology - [place] [address] [place] [address] Tamara Sow PA-C [address] [facility] [address] [place] [address] documented as of this encounter Visit Diagnoses Not on filedocumented in this encounter Care Teams Director Of Procurement Relationship Specialty Start Date End Date Deandra Lopez APRN PCP - General Nurse Practitioner 04/18/22 06/03/24 Deandra Lopez, CASINO CAGE MANAGER [address] [place] [address] PCP - General Nurse Practitioner 06/04/24 documented as of this encounter
--- OUTSIDE RECORDS SUMMARY | 2024-07-16 15:12 | XMS_ITS | Encounter Summary ---
Author Organization [facility] In [facility]atives Address [address] [place] [address] Care Team Providers Care Folder Taper Operator Name Role Phone Deandra Lopez APRN Primary Care Provider +1- [phone] Deandra Lopez APRN Primary Care Provider +1- [phone] Encounter Details Date Type Department Care Team (Late st Contact Info) Description 08/05/2021 Transcribed Document [facility] [place] Family Medicine [facility] [place] [address] ProviderElaine MD [address] [place] [address] Social History Tobacco Use Types [...] Cerner Conversion Note - Historical ProviderMD - 08/05/2021 2:05 PM CDT UM Authorization Entered On: 08/05/2021 14:06 EDT Performed On: 08/05/2021 14:05 EDT by Tonie Whelan, Hospital Account Manager Primary Insurance Authorization Authorization and Policy Numbers : Insurance 1 Health Plan: [facility] Policy Number: [id number] Authorization Number: SAG Insurance Primary Name : [facility] [id number] Authorization Status-Primary : Drg approved Reference Number-Primary : [id number] Authorization Number-Primary : [id number] Number of Days Authorized-Primary : 8 Day(s) Authorized Service Begin Date-Primary : 08/04/2021 EDT Authorized Service End Date-Primary : 08/12/2021 EDT Historical Authorization Comments-Primary : Comment 1: Authorized per fax 08/05/21 @ 1334. Approved DRG admission. Next review due 08/13. Authorization [id number] is per fax. (Tonie Whelan, Hospital Account Manager 08/05/2021 14:01) Comment 2: inpt clinicals faxed via cortex 08/04-08/05 (AKBAR GUERIN RN-UTILIZATION MANAGEMENT REVIEW NON-EXEMPT 08/05/2021 11:29) Comment 3: per [facility] approved INPT auth# [id number] no los was noted (TYREL SALDANA, Chain Builder 08/03/2021 11:56) Tonie Whelan, Hospital Account Manager - 08/05/2021 14:05 EDT Electronically signed by [facility] Conversion Tissue Recovery Technician Cerner at 05/27/2022 4:41 PM CDT documented in this encounter Plan of Treatment Upcoming Encounters Date Type Department Care Team (Late st Contact Info) Description 07/17/2024 11:00 AM EDT Appointment [facility] Wound & Ostomy Therapy [address] [place] [address] 08/28/2024 9:15 AM EDT Office Visit [facility] Urology - [address] [place] [address] Chandrika Santana, SOFTWARE DEVELOPER [address] [place] [address] 04/17/2025 8:30 AM EDT Office Visit [facility] Cardiology - [place] [address] [place] [address] Tamara Sow PA-C [address] [facility] [address] [place] [address] documented as of this encounter Visit Diagnoses Not on filedocumented in this encounter Care Teams Folder Taper Operator Relationship Specialty Start Date End Date Deandra Lopez APRN PCP - General Nurse Practitioner 04/18/22 06/03/24 Deandra Lopez, SOFTWARE DEVELOPER [address] [place] [address] PCP - General Nurse Practitioner 06/04/24 documented as of this encounter
--- OUTSIDE RECORDS SUMMARY | 2024-07-16 15:12 | XMS_ITS | Encounter Summary ---
Author Organization [facility] Address [address] [place] [address] Care Team Providers Care Bisque Brusher Name Role Phone Deandra Lopez APRN Primary Care Provider +1- [phone] Deandra Lopez APRN Primary Care Provider +1- [phone] Encounter Details Date Type Department Care Team (Late st Contact Info) Description 08/04/2021 Transcribed Document [facility] [place] [address] ProviderEaline MD [address] [place] [address] Social History Tobacco Use Types [...] Conversion Note - Historical ProviderMD - 08/04/2021 2:00 AM CDT Spiritual Care Assessment Entered On: 08/04/2021 13:27 EDT Performed On: 08/04/2021 2:00 EDT by Evon Almendarez Chaplain-Non Cert General Information Initial Visit : Yes Ministry Provided to : Patient Ministry Comment/Summary Points : Green Coffee Blender referred to patient re: pre-sugery. Evon Almendarez Chaplain-Non Cert - 08/04/2021 13:26 EDT Interventions Emotional Support : Empathic/Engaged listening Evon Almendarez Chaplain-Non Cert - 08/04/2021 13:26 EDT Electronically signed by Ganesh Higginbotham Conversion Associate Professor Of Art Cerner at 05/27/2022 4:49 PM CDT documented in this encounter Plan of Treatment Upcoming Encounters Date Type Department Care Team (Late st Contact Info) Description 07/17/2024 11:00 AM EDT Appointment [facility] Wound & Ostomy Therapy [address] [place] [address] 08/28/2024 9:15 AM EDT Office Visit [facility] Urology - [address] [place] [address] Chandrika Santana, HEALTH CARE CONSULTANT [address] [place] [id number] 04/17/2025 8:30 AM EDT Office Visit [facility] Cardiology - [place] [address] [place] [address] Tamara Sow PA-C 227 [facility] [address] [place] [address] documented as of this encounter Visit Diagnoses Not on filedocumented in this encounter Care Teams Bisque Brusher Relationship Specialty Start Date End Date Deandra Lopez APRN PCP - General Nurse Practitioner 04/18/22 06/03/24 Deandra Lopez, HEALTH CARE CONSULTANT [address] [place] [address] PCP - General Nurse Practitioner 06/04/24 documented as of this encounter
--- OUTSIDE RECORDS SUMMARY | 2024-07-16 15:12 | XMS_ITS | Encounter Summary ---
Author Organization [facility] Address [address] [place] [address] Care Team Providers Care Engineering Tech Name Role Phone Deandra Lopez APRN Primary Care Provider +1- [phone] Deandra Lopez APRN Primary Care Provider +1- [phone] Encounter Details Date Type Department Care Team (Late st Contact Info) Description 08/03/2021 Transcribed Document [facility] Family [place] [facility] [address] ProviderElaine MD [address] [place] [address] Social History Tobacco Use Types [...] Cerner Conversion Note - Historical ProviderMD - 08/03/2021 11:56 AM CDT UM Authorization Entered On: 08/03/2021 11:57 EDT Performed On: 08/03/2021 11:56 EDT by TYREL SALDANA, Professor In Family Studies Primary Insurance Authorization Authorization and Policy Numbers : Insurance 1 Health Plan: [facility] Policy Number: [id number] Authorization Number: [id number] Insurance Primary Name : [facility] [id number] Authorization Status-Primary : Admit approved Authorization Number-Primary : [id number] Authorized Service Begin Date-Primary : 08/04/2021 EDT Authorization Comments-Primary : per [facility] approved INPT auth# [id number] no los was noted Historical Authorization Comments-Primary : No Authorization Comments Found TYREL SALDANA, Professor In Family Studies - 08/03/2021 11:56 EDT Electronically signed by Sean Higginbotham Conversion Final Inspector Truck Trailer Cerner at 05/27/2022 4:55 PM CDT documented in this encounter Plan of Treatment Upcoming Encounters Date Type Department Care Team (Late st Contact Info) Description 07/17/2024 11:00 AM EDT Appointment [facility] Wound & Ostomy Therapy [address] [place] [id number] 08/28/2024 9:15 AM EDT Office Visit [facility] Urology - [address] [place] [address] Chandrika Santana, DELIVERY DRIVER/SUPERVISOR [address] [place] [phone] 04/17/2025 8:30 AM EDT Office Visit [facility] Cardiology - [place] [address] [place] [address] Tamara Sow PA-C [address] [facility] [address] [place] [address] documented as of this encounter Visit Diagnoses Not on filedocumented in this encounter Care Teams Engineering Tech Relationship Specialty Start Date End Date Deandra Lopez, DELIVERY DRIVER/SUPERVISOR PCP - General Nurse Practitioner 04/18/22 06/03/24 Deandra Lopez, DELIVERY DRIVER/SUPERVISOR [address] [place] [address] PCP - General Nurse Practitioner 06/04/24 documented as of this encounter
--- OUTSIDE RECORDS SUMMARY | 2024-07-16 15:12 | XMS_ITS | Continuity of Care Document ---
Author Organization [facility]- Dept [address] [place] [address] Care Team Providers Care Credit Advisor Name Role Phone LILIAM LOPEZ Referring Provider MITZI BURDICK Product Handler Unavailable LILIAM LOPEZ Primary Care Provider Assessment No assessment recorded. Plan of Treatment Reminders Order Date Submit Date Provider Last Modified By Organization Details Last Modified Time Details Appointments OV EST 15 2024 10:15A M Mitzi Burdick NP Not available Not available Not available OV PHY 30 2024 09:30A M Liliam Lopez NP, S Not available Not available Not available Lab CMP, serum or plasma [address] [facility] (Lab Registration) , [address] [place] [address] [place], [address], 06/07/2024 07:44:37 iron + total iron-bind ing capacity (TIBC), serum [address] [facility] (Lab Registration) , [address] [place] [address] [place], [address], 06/07/2024 07:44:37 CBC w/ auto diff [address] [facility] (Lab Registration) , [address] [place] [address] [place], [address], 06/07/2024 07:44:38 Referral None recorded. Procedures None recorded. Surgeries None recorded. Imaging None recorded. Medication Orders alprazola m 1 mg tablet 2024 025 [email or web address] [id number] [facility], [address] [facility], [place], [address], 06/02/2024 11:33:33 Patient TargetsNo targets recorded. Patient Instructions Encounter Date Encounter Id Patient Instructions Last Modified By Organization Details Last Modified Time 05/31/2024 [id number] Labs drawn in office by Caesar Johns TYPE PHOTOGRAPHY SUPERVISOR x 1 attempt. Pt tolerated well [email or web address] Not available 05/31/2024 16:53:46 Parts of this document were prepared using voice recognition software and may contain unrecognized dictation errors and word substitutions commonly found with electronic cardiac rehabilitation specialist. Attempts have been made to correct errors during dictation, but some errors may remain. It should not be considered a word for word legal document, but is a record created to help myself and others care for the patient. I reserve the right to interpret this document as I believe it was intended and not necessarily the way it was transcribed. [email or web address] Not available 05/31/2024 16:53:27 Reason for Referral None Reported. Results Created Date Observation Date Name Description Value Unit Range Abnormal Flag Note LastModifiedBy Organization Detail LastModifiedTime 05/29/1902/18/2021 MAMMO , scree les, digit al, bilat eral No observ ation record ed. [email or web address] Not Available 05/08 10:55:49 07/11/1907/10/2024 [place], modif ied master acuña study No observ ation record ed. [facility] (Radiology) [address] [place], [address], 07/10/2024 15:11:23 07/11/1907/10/2024 modif ied master acuña [facility] [address] [place] [address] Phone: Fax: Name: DEMETRA DIAZ Exam Date: 6/4/20 25 : [birth year] Age 44 years Gender : F Access ion: [id number] Physic chago: SARAH BURDICK Facili ty: [facility] Facili ty HSV: Outpat ient Exam: MODIFI ED BARIUM SWALLO W EXAM: MODIFI ED BARIUM SWALLO W Perfor med by: Branden douglas, DOOR TENDER-C. INDICA TION: dyspha latoya FINDIN GS/CHUCKY HNIQUE : Under fluoro scopic evalua tion cinera diogra phy/vi deorad iograp hy record ings were perfor med in conjun ction with the speech -langu age pathol ogist (CRIME SCENE SPECIALIST). Variou s liquid , solid and/or semi-s olid barium prepar ations were used to assess swallo wing functi on. Aspira tion visual ized with thin liquid s. Record ed fluoro scopy was used for this study. FLUORO TIME: 2.5 minute s. Refere nce air kerma: 25.088 mGy. IMPRES JAGDEEP: Modifi ed barium swallo w. Aspira tion of thin liquid s. Please see formal report by speech -langu age pathol ogy for findin gs and recomm endati ons. Electr onical ly signed by: Rj poon MD 2024 03:06 PM EDT RP Workst ation: [id number] Dictat ed By: Rj Rodriguez Transc ribed By: Transc ribed On: 07/11/19 12:19 PM Electr onical ly signed by: Rj Rodriguez 07/11/19 Thank you for referr DEMETRA Ochoa to [facility]. Legall y authen ticate d by MARY FITZGERALD MD 2024-0 07-10 12:19: 53 CC'ed Logic: Orderi ng Provid er: SHAGGY Ledesma CC Provid er: DEEPAK RICKETTS Attend ing Provid er: SHAGGY Ledesma Referr ing Provid er: SHAGGY Ledesma Admitt ing Provid er: SHAGGY Ledesma INTERFACE [facility] (Radiology) [address] , [place], [address], 07/10/2024 15:11:11 07/11/19 25 07/10/2024 XR, esoph agram [facility] [address] [place], [place] [address] Phone: Fax: Name: DEMETRA DIAZ Exam Date: 07/11/19 : [birth year] Age 44 years Gender : F Access ion: [id number] Physic chago: SARAH BURDICK Facili ty: [facility] Facili ty HSV: Outpat ient Exam: ESOPHA GRAM EXAM: ESOPHA GRAM Perfor med by: Branden douglas APRN, DOOR TENDER-C INDICA TION: dyspha latoya, GERD, neck surger y 1 yr ago, colect simón with ileost simón. TECHNI QUE: Prelim inary chest film was obtain ed after which contra st evalua tion of the esopha hu was perfor med using double -contr ast techni que. Multip le overhe ad and fluoro scopic spot images were obtain ed. FLUORO TIME: 0.7 minute s. Refere nce air kerma: 4.995 mGy. FINDIN GS: The prelim inary chest radiog raph demons trates unrema rkable soft tissue and osseou s struct ures. Cardia c and medias tinal silhou ettes are within normal limits . The lungs are clear. Barium contra st presen t in stomac h from prior modifi ed barium swallo w. There is a normal primar y stripp ing wave. Esopha geal mucosa is unrema rkable . No intrin sic or extrin sic masses , strict ures or disten tion are noted. Small slidin g hiatal hernia is identi fied. No gastro esopha geal reflux is observ ed after Valsal va. A 13 mm barium tablet passes easily throug h the esopha hu and into the stomac h. IMPRES JAGDEEP: 1. Small hiatal hernia . Electr onical ly signed by: Rj poon MD 2024 04:23 PM EDT RP Workst ation: [id number] Dictat ed By: Rj Rodriguez Transc ribed By: Transc ribed On: 07/11/19 12:19 PM Electr onical ly signed by: Rj Rodriguez 07/11/19 Thank you for referr DEMETRA Ochoa to [facility]. Legall y authen ticate d by MARY FITZGERALD MD 07-10 12:19: 44 CC'ed Logic: Orderi ng Provid er: SHAGGY Ledesma CC Provid er: DEEPAK Pa ing Provid er: SHAGGY Ledesma Referr ing Provid er: SHAGGY Ledesma Admitt ing Provid er: SHAGGY Ledesma [facility] (Radiology) [address] , [place], [address], 07/10/2024 16:27:30 07/11/19 25 07/10/2024 [place], modif ied master gomes ow study No observ ation record ed. [facility] (Radiology) [address] , [place], [address], 07/10/2024 17:49:40 07/13/19 25 07/10/2024 [place], modif ied raulu alexandro gomes ow study No observ ation record ed. [facility] [address] , [place], [address], 07/12/2024 12:51:54 Result Notes None recorded. Problems Name Problem SNOMED Code Status Onset Date Resolution Date Notes Provider Name and Address Organization Details Recorded Time Generalize d anxiety disorder 95295735 Active 2023 Liliam Lopez NP [address], [address], [place], [address] , [facility] - [facility] & [place] 4 08:03:57 Acute conjunctiv itis of right eye 5591282331889 02 Active 2024 Liliam Lopez NP [address], [address], [place], [address] , [facility] - NT [facility] & [place] 5 11:44:09 Dysphagia 14960231 Active 2024 Mitzi Burdick NP [address], [address], [place], [address] , [place] - [facility] - [place] & [place] 5 09:49:25 Hyponatrem ia 45170093 Active 2024 Liliam Lopez NP [address], [address], [place], [address] , [place] - [facility] - [place] & [place] 5 16:36:25 Iron deficiency anemia due to blood loss 255352603 Active 2024 Liliam Lopez NP [address], [address], [place], [address] , [place] [facility] - [place] & [place] 5 16:37:21 Candidiasi s of mouth 19481281 Active 2024 Liliam Lopez NP [address], [address], [place], [address] , [place] - [facility] - [place] & [place] 5 09:08:22 Postoperat sandy seroma 836236847 Active 2024 Liliam Lopez NP [address], [address], [place], [address] , [place] [facility] [place] & [place] 5 14:39:33 Decrease in appetite 99696524 Active 2024 Liliam Lopez NP [address], [address], [place], [address] , [place] [facility] [place] & [place] 5 12:59:09 Acute upper respirator y infection 20899354 Active 2024 Liliam Lopez NP [address], [address] , [place] [facility] [place] & [place] 5 13:19:16 History of blood transfusio n 305097259 Active 2021 Not Available [facility] 3 07:11:23 Gastroesop hageal reflux disease 604545163 Active 2021 Not Available [facility] 3 07:11:23 Hyperchole sterolemia 12936098 Active 2021 Not Available [facility] 3 07:11:23 Thyroiditi s 16508434 Active 2021 Not Available [facility] 3 07:11:23 Arthritis 8608836 Active 2021 Not Available [facility] 3 07:11:23 Sleep apnea 41537257 Active 2021 Not Available [facility] 3 07:11:23 Constipati on 42502110 Active 2021 Not Available [facility] 3 07:11:23 Irregular heart beat 031304768 Active 2021 Not Available [facility] 3 07:11:23 Diabetes mellitus 66136417 Active 2021 Not Available [facility] 3 07:11:23 Anxiety 84585958 Active 2021 Not Available [facility] 3 07:11:23 Depressive disorder 90082746 Active 2021 Not Available [facility] 3 07:11:23 Chest pain 13403879 Active 2021 Not Available [facility] 3 07:11:23 Posttrauma tic stress disorder 22167174 Active 2021 Not Available [facility] 3 07:11:23 Loose stool 829392202 Active 2021 Not Available [facility] 3 07:11:23 Paresthesi a 23382994 Active 2021 [facility] 3 07:11:23 Vitamin D deficiency 22428457 Active 2021 Not Available [facility] 3 07:11:23 Memory impairment 604378114 Active 2021 Not Available [facility] 3 07:11:23 Neck pain 98671315 Active 2021 Not Available [facility] 3 07:11:23 Pain in left arm 251585509 Active 2021 Not Available [facility] 3 07:11:23 Vitamin B12 deficiency (non anemic) 22933195 Active 2021 Not Available [facility] 3 07:11:23 Essential hypertensi on 65191598 Active 2021 Not Available [facility] 3 07:11:23 Electrolyt es outside reference range 311345111 Active 2021 Not Available [facility] 3 07:11:23 Migraine 32764434 Active 2022 Not Available [facility] 3 07:11:23 Degenerati on of cervical interverte bral disc 65263279 Active 2022 Not Available [facility] 3 07:11:23 Diarrhea 12640902 Active 2022 Not Available [facility] 3 07:11:23 Diarrhea of presumed infectious origin 00834877 Active 2022 Not Available [facility] 3 07:11:23 Hematochez ia 170139502 Active 2022 Not Available [facility] 3 07:11:23 Generalize d abdominal pain 804886583 Active 2022 Not Available [facility] 3 07:11:23 Nausea 599428748 Active 2022 Not Available [facility] 3 07:11:23 Anemia 084832108 Active 2022 Not Available [facility] 3 07:11:23 Chronic diarrhea 251698517 Active 2022 Not Available [facility] 3 07:11:23 Type 2 diabetes mellitus without complicati on 446066587 Active 2022 Not Available [facility] 3 07:11:23 Gastro-eso phageal reflux disease with esophagiti s 947029059 Active 2022 Mitzi Burdick NP [address], [address], [place], [address] , [facility] - [place] & [place] 3 10:37:44 Gastritis 8219101 Active 2022 Mitzi Burdick NP [address], [address], [place], [address] , [place] [facility] - [facility] & [place] 3 10:37:47 Lower abdominal pain 66507832 Active 2022 Mitzi Burdick NP [address], [address], [place], [address] , [place] [facility] & [place] 3 14:24:28 Difficulty in ability to defecate 016254798 Active 2022 Mitzi Burdick NP [address], [address], [place], [address] , [place] [facility] - [facility] & [place] 3 14:26:01 Acquired hypothyroi dism 403556018 Active 2022 Liliam Lopez NP [address], [address], [place], [address] , [place] [facility] & [place] 3 11:23:17 Mixed hyperlipid emia 544206465 Active 2022 Liliam Lopez NP [address], [address], [place], [address] , [place] [facility] - [facility] & [place] 3 11:24:14 Furuncle of right axilla 7574369265032 9105 Active 2023 Liliam Lopez NP [address], [address], [place], [address] , [place] [facility] - [facility] & [place] 4 14:06:55 Nodule of lung 976454635 Active 2023 Liliam Lopez NP [address], [address], [place], [address] , [place] [facility] - [facility] & [place] 4 15:55:22 Epigastric pain 15104250 Active 2023 Mitzi Burdick NP [address], [address], [place], [address] , [place] [facility] - [facility] & [place] 4 13:28:19 Internal hemorrhoid s 36094708 Active 2023 Mitzi Burdick NP [address], [address], [place], [address] , [place] [facility] [place] & [place] 4 13:30:11 Digital mucous cyst 021186820 Active 2023 Liliam Lopez NP [address], [address], [place], [address] , [place] [facility] [place] & [place] 4 16:23:23 Vesicular eczema of hand 055904704 Active 2023 Liliam Lopez NP [address], [address], [place], [address] , [place] [facility] [place] & [place] 4 16:23:49 Carpal tunnel syndrome of right wrist 8268901707024 08 Active 2023 Liliam Lopez NP [address], [address], [place], [address] , [place] - [facility] - [place] & [place] 4 16:25:32 Chronic migraine without aura 6537806684177 05 Active 2023 Liliam Loepz NP [address], [address], [place], [address] , [place] [facility] [place] & [place] 4 07:54:45 Nonulcer dyspepsia 1127756 Active 2023 Mitzi Burdick NP [address], [address], [place], [address] , [place] [facility] - [place] & [place] 4 09:56:50 Problem Notes None recorded. Procedures Surgical History Date Name Laterality Status Provider Name and Address Organization Details Recorded Time 09/13 esophagogastroduodenoscopy completed Demetra Elkins [place] - [facility] - [place] & [place] 4 09:21:09 03/23 Date of Last Colonoscopy completed Jeremías MARIE - [facility] & [place] 4 10:35:24 03/23 Flexible Sigmoidoscopy completed Justin Ryan [place] - [facility] - [place] & [place] 4 10:35:11 02/06 Other completed Cheleste [place] - [facility] - [place] & [place] 4 16:59:01 02/06 Head or Neck Surgery completed Cheleste [place] - [facility] - [place] & [place] 4 16:59:01 02/06 Other completed Julia Hill [place] - [facility] - [place] & [place] 5 10:30:24 02/06 Back Surgery completed Julia [place] [facility] [place] & [place] 5 10:30:24 09/08 Neurosurgery completed Cheleste [place] - [facility] - [place] & [place] 4 09:45:16 09/06 Back Surgery completed Cheleste [place] [facility] [place] & [place] 4 09:50:15 08/04 Gastrointestinal Surgery completed Chelest e [place] [facility] [place] & [place] 4 09:45:16 05/25 Head or Neck Surgery completed Cheleste [place] [facility] [place] & [place] 4 09:48:21 05/25 Back Surgery completed Cheleste [place] [facility] [place] & [place] 4 09:54:40 05/12 Neurosurgery completed Cheleste [place] [facility] [place] & [place] 4 09:45:16 05/11 Head or Neck Surgery completed Cheleste [place] [facility] [place] & [place] 4 09:49:12 04/11 esophagogastroduodenoscopy completed Kwaku anais [place] [facility] - [place] & [place] 4 10:05:29 04/11 sigmoidoscopy completed Cheleste [place] [facility] [place] & [place] 4 10:05:44 02/21 completed Cheleste [place] [facility] [place] & [place] 4 10:31:19 12/23 EMG/ Nerve Conduction Study completed Ben Moore M.D [address], [address], [place], [address] , [place] [facility] [place] & [place] 2 14:58:46 08/04 subtotal colectomy with ileorectal anastomosis completed Mitzi Burdick NP [address], [address], [place], [address] , [place] [facility] [place] & [place] 2 10:00:54 08/04 Abdominal Surgery completed Jamie Dubon [place] - [facility] - [facility] & [place] 2 14:04:01 02/06 Abdominal Surgery completed mariana johns [place] - [facility] - [facility] & [place] 3 15:53:32 02/06 Gastrointestinal Surgery completed Wilson Ryan [place] - [facility] - [facility] & [place] 4 09:43:52 02/06 Sewer Connector Surgery completed mariana johns [place] [facility] - [place] & [place] 3 15:53:32 10/13 Date of Last Pap Smear completed Jamie Dubon [place] - [facility] - [place] & [place] 2 14:03:44 07/19 Neurosurgery completed Codi Gruber [place] [facility] - [place] & [place] 3 15:00:27 03/16 Colonoscopy completed Justin Ryan [place] - [facility] - [place] & [place] 4 09:41:09 07/07 Back Surgery completed Jamie Dubon [place] - [facility] - [place] & [place] 2 14:04:01 02/06 Back Surgery completed Justin Ryan [place] [facility] [place] & [place] 4 09:54:40 02/06 Sewer Connector Surgery completed mariana johns [place] - [facility] - [place] & [place] 3 15:53:32 01/30 Abdominal Surgery completed Justin Sarmientoz [place] - [facility] - [place] & [place] 4 09:46:50 01/30 Sewer Connector Surgery completed Jamie Dubon [place] - [facility] - [place] & [place] 2 14:04:01 02/06 Sewer Connector Surgery completed Justin [place] [facility] - [place] & [place] 4 10:32:14 01/24 Abdominal Surgery completed Justin Connor [place] [facility] - [place] & [place] 4 09:46:50 01/24 Sewer Connector Surgery completed Jamie Dubon [place] - [facility] - [place] & [place] 2 14:04:01 02/06 Sewer Connector Surgery completed mariana johns [place] - [facility] - [place] & [place] 3 15:53:32 esophagogastroduodenoscopy completed Jamie Dubon [place] - [facility] - [place] & [place] 2 07:54:35 section completed Jamie MARIE - [facility] - [place] & [place] 2 07:54:46 section completed Jamie Dubon [place] - [facility] - [place] & [place] 2 07:54:47 ovarian ablation completed Jamie MARIE - [facility] - [place] & [place] 2 07:55:32 salpingo-oophorectomy completed Faviandorys Dubon [place] - [facility] - [place] & [place] 2 07:56:25 insertion of single incision mid-urethral mini-sling completed Jamie MARIE - [facility] - [place] & [place] 2 07:56:43 Cholecystectomy completed Justin Sarmientoz [place] - [facility] - [place] & [place] 4 09:48:21 Head or Neck Surgery completed Ines Ryan [place] - [facility] - [place] & [place] 4 09:51:55 cardiac catheterization completed C dcpipe Ryan [place] - [facility] - [place] & [place] 4 10:00:20 stimulation completed Justin GRAY [facility] & [place] 4 10:01:28 procedure on mouth completed Milka Vega [facility] & [place] 4 10:01:37 Total Hysterectomy completed Milka Miranda [facility] & [place] 4 10:01:53 extraction of wisdom tooth completed Justin GRAY [facility] & [place] 4 10:02:14 transurethral cystoscopy completed Justin GRAY [facility] & [place] 4 10:02:28 Colonoscopy completed Jamie GRAY [facility] & [place] 2 14:04:01 Gastrointestinal Surgery completed Mary Carmen GRAY [facility] & [place] 2 12:45:19 Sewer Connector Surgery completed Mary Carmen GRAY [facility] & [place] 2 12:45:19 Abdominal Surgery completed Mary Carmen GRAY [facility] & [place] 2 12:45:19 Back Surgery completed Mary Carmen Rossi [facility] & [place] 2 12:45:19 Imaging Results None recorded. Procedure Notes None recorded. Medical Equipment Implant [employer] Issuing Agency Serial Number Lot Number Status Provider Name and Address Organization Details Recorded Time Spinal cord stimulator FDA Y Justin santana [place] Rossi [facility] & [place] 02/28/2023 10:03:17 Allergies Allergen ID Allergen Name Allergen Category Reaction Reaction Severity Criticality Documentation Date Start Date Code Code System Note Provider Name and Address Organization Details Recorded Time 090911 Paxil medicatio n Not available Not available Not available 02/28/2023 29119 8 RxNorm Other react ions and sever ities : 'Tach ycard ia - Moder ate', 'Decr eased blood press ure - Moder ate', 'Ches t pain - Moder ate', and 'Dizz iness - Moder ate'. Justin santana [place] Rossi LP[facility] & [place] 4 09:54:52 770374 sumatript an medicatio n Not available Not available Not available 02/28/2023 45667 RxNorm Other react ions and sever ities : 'Adve rse react ion to subst ance' . Justin santana, [place] - [facility] - [place] & [place] 4 09:56:40 208059 bupropion Not available Not available Not available Not available 02/28/2023 15633 RxNorm Other react ions and sever ities : 'Adve rse react ion to subst ance' . Justin santana, [place] - [facility] - [place] & [place] 4 09:56:40 422487 adhesive tape environme nt,medica tion other severe Not available 05/28/2024 96775 UNK Julia santana, [place] - [facility] - [place] & [place] 5 10:30:31 49420 Imitrex medicatio n tachycard ia severe Not available 10/29/2021 88884 3 RxNorm Jamie santana, [place] - [facility] & [place] 2 07:43:48 01436 pseudoeph edrine Not available Not available Not available Not available 10/29/2021 8896 RxNorm Other react ions and sever ities : 'Adve rse react ion to subst ance' . Justin santana, [place] - [facility] - [place] & [place] 4 16:58:00 12283 Vistaril medicatio n Not available Not available Not available 10/29/2021 45019 9 RxNorm Jamie santana, [place] - [facility] - [place] & [place] 2 07:44:07 75895 prednison e medicatio n rash Not available Not available 10/29/2021 8640 RxNorm Jamie santana, [place] - [facility] - [place] & [place] 2 07:44:17 09578 diclofena c Not available Not available Not available Not available 10/29/2021 3355 RxNorm Other react ions and sever ities : 'Adve rse react ion to subst ance' . Justin santana, [place] - [facility] & [place] 4 16:58:00 39610 Wellbutri n medicatio n decreased blood pressure severe Not available 10/29/2021 74010 RxNorm [place] Galindo [facility] & [place] 2 07:44:31 Medications Name Sig Start Date Stop Date Status Note LastModified by Organization Details LastModified Time DHEA 1 10 mg DHEA supposito ry vaginally 3 times per week 90 days 12/27 completed Not Available Not Available Not Available amantadine HCl 100 mg tablet 04/02 completed Not Available Not Available Not Available fluoxetine 40 mg capsule TAKE 1 CAPSULE BY MOUTH ONCE DAILY IN THE MORNING active Not Available Not Available No t Available cyclobenzap rine 10 mg tablet TAKE 1 TABLET BY MOUTH EVERY 8 HOURS NEEDED FOR PAIN OR MUSCLE SPASMS 11/09 completed Not Available Not Available Not Available Nicotrol NS 10 mg/mL nasal spray 04/04 completed Not Available Not Available Not Available lamotrigine 150 mg tablet TAKE 1 TABLET BY MOUTH TWICE DAILY active Not Available Not Available No t Available metformin 500 mg tablet 03/07 completed Not Available Not Available Not Available cyanocobala min (vit B-12) ER 1,000 mcg tablet,exte nded release TAKE 1 TABLET BY MOUTH EVERY DAY FOR 90 DAYS 05/03 completed Not Available Not Available Not Available atorvastati n 80 mg tablet TAKE 1 TABLET BY MOUTH ONCE DAILY active Not Available Not Available No t Available nystatin 100,000 unit/mL oral suspension SWISH AND SPIT 5 ML 4 TIMES DAILY FOR 10 DAYS active Not Available Not Available No t Available doxycycline hyclate 100 mg capsule Take 1 capsule twice a day by oral route with meal(s) for 10 days. 07/17 completed Not Available Not Available Not Available naproxen 375 mg tablet TAKE 1 TABLET BY MOUTH TWICE DAILY 12/14 completed Not Available Not Available Not Available clindamycin HCl 300 mg capsule TAKE 1 CAPSULE BY MOUTH TWICE DAILY 12/14 completed Not Available Not Available Not Available oxybutynin chloride ER 10 mg tablet,exte nded release 24 hr TAKE 1 TABLET BY MOUTH EVERY DAY 12/14 completed Not Available Not Available Not Available azithromyci n 250 mg tablet TAKE 2 TABLETS (500 MG) BY ORAL ROUTE ONCE DAILY FOR 1 DAY THEN 1 TABLET (250 MG) BY ORAL ROUTE ONCE DAILY FOR 4 DAYS 2024 active Not Available Not Available Not Avai lable alprazolam 1 mg tablet TAKE 1 TABLET BY MOUTH ONCE DAILY NEEDED FOR ANXIETY active Not Available Not Available No t Available ofloxacin 0.3 % eye drops INSTILL 1 DROP INTO AFFECTED EYE(S) BY OPHTHALMI C ROUTE 3 TIMES PER DAY for 7 days 04/02 completed Not Available Not Available Not Available fluconazole 150 mg tablet TAKE 1 TABLET BY MOUTH EVERY WEEK 05/31 completed Not Available Not Available Not Available metoprolol succinate ER 50 mg tablet,exte nded release 24 hr Take 1 tablet by mouth twice daily active Not Available Not Available No t Available hydrocodone 5 mg-acetamin ophen 325 mg tablet TABLET 1 BY MOUTH EVERY 4 HOURS NEEDED PAIN FOR 15 DAYS SUPPLY 05/04 completed Not Available Not Available Not Available prazosin 1 mg capsule TAKE TWO (2) CAPSULES BY MOUTH EVERY EVENING 04/02 completed Not Available Not Available Not Available meloxicam 15 mg tablet TAKE 1 TABLET BY MOUTH DAILY 12/14 completed Not Available Not Available Not Available sucralfate 1 gram tablet TAKE 1 TABLET BY MOUTH FOUR TIMES DAILY 02/19 completed Not Available Not Available Not Available ondansetron HCl 4 mg tablet TAKE 1 TABLET BY MOUTH TWICE DAILY DIRECTED 05/31 completed Not Available Not Available Not Available famotidine 40 mg tablet TAKE 1 TABLET BY MOUTH ONCE DAILY active Not Available Not Available No t Available isosorbide mononitrate ER 30 mg tablet,exte nded release 24 hr TAKE 1 TABLET BY MOUTH ONCE DAILY active Not Available Not Available No t Available diphenoxyla te-atropine 2.5 mg-0.025 mg tablet Take 1 tablet by mouth three times a day as needed for diarrhea. Please hold potassium daily potassium dose when taking this medicatio n 04/04 completed Not Available Not Available Not Available potassium chloride ER 10 mEq tablet,exte nded release TAKE 1 TABLET BY MOUTH EVERY DAY NEEDED WITH LASIX active Not Available Not Available No t Available metronidazo le 500 mg tablet TAKE 1 TABLET BY MOUTH THREE TIMES DAILY 05/31 completed Not Available Not Available Not Available hydroxyzine HCl 50 mg tablet TAKE 1 TABLET BY MOUTH THREE TIMES DAILY NEEDED 05/31 completed Not Available Not Available Not Available trimethopri m 100 mg tablet 12/14 completed Not Available Not Available Not Available ciprofloxac in 500 mg tablet TAKE 1 TABLET BY MOUTH TWICE DAILY 05/04 completed Not Available Not Available Not Available quetiapine 100 mg tablet 05/04 completed Not Available Not Available Not Available acetaminoph en 500 mg tablet TAKE 2 TABLETS BY MOUTH EVERY 6 HOURS FOR 10 DAYS active Not Available Not Available No t Available triamcinolo ne acetonide 0.1 % topical cream APPLY THIN LAYER TOPICALLY TO AFFECTED AREA TWICE DAILY FOR 7 DAYS active Not Available Not Available No t Available oxycodone-a cetaminophe n 5 mg-325 mg tablet TAKE 1 TABLET BY MOUTH EVERY 4 HOURS NEEDED FOR PAIN 07/15 completed Not Available Not Available Not Available amoxicillin 875 mg tablet TAKE 1 TABLET BY MOUTH EVERY 12 HOURS 11/09 completed Not Available Not Available Not Available potassium chloride ER 20 mEq tablet,exte nded release(par t/cryst) Take 1 tablet by mouth once daily active Not Available Not Available No t Available methocarbam ol 750 mg tablet TAKE 1 TABLET BY MOUTH TWICE DAILY 12/14 completed Not Available Not Available Not Available estradiol 1 mg tablet 03/07 completed Not Available Not Available Not Available cyanocobala min (vit B-12) 500 mcg tablet TAKE 1 TABLET BY MOUTH ONCE DAILY active Not Available Not Available No t Available dicyclomine 20 mg tablet Take 1 tablet 4 times a day by oral route as needed for 30 days. 03/07 completed Not Available Not Available Not Available OneTouch Ultra Test strips USE 1 STRIP TO CHECK GLUCOSE TWICE DAILY active Not Available Not Available No t Available benzonatate 100 mg capsule TAKE 1 CAPSULE BY MOUTH THREE TIMES DAILY NEEDED FOR COUGH 11/09 completed Not Available Not Available Not Available esomeprazol e magnesium 40 mg capsule,del ayed release TAKE 1 CAPSULE BY MOUTH ONCE DAILY active Not Available Not Available No t Available levothyroxi ne 125 mcg tablet TAKE 1 TABLET BY MOUTH IN THE MORNING ON AN EMPTY STOMACH 2024 active Not Available Not Available Not Avai lable buspirone 10 mg tablet TAKE 1 TABLET BY MOUTH THREE TIMES DAILY 05/31 completed Not Available Not Available Not Available gabapentin 300 mg capsule TAKE 1 CAPSULE BY MOUTH NIGHTLY active Not Available Not Available No t Available estradiol 2 mg tablet Take 1 tablet by mouth once daily 05/01 completed Not Available Not Available Not Available furosemide 20 mg tablet 1 tablet as needed by oral route. active Not Available Not Available No t Available gabapentin 100 mg capsule 04/02 completed Not Available Not Available Not Available ergocalcife rol (vitamin D2) 1,250 mcg (50,000 unit) capsule TAKE 1 CAPSULE BY MOUTH 1 TIME A WEEK 05/31 completed Not Available Not Available Not Available polyethylen e glycol 3350 17 gram/dose oral powder TAKE 10 CAPFUL MIXED IN 32 OZ GATORADE DIRECTED BEFORE PROCEDURE active Not Available Not Available No t Available estradiol 0.01% (0.1 mg/gram) vaginal cream APPLY FINGER TECHNIQUE MOUTH OF VAGINA 3 TIMES WEEKLY 05/31 completed Not Available Not Available Not Available Provigil 200 mg tablet 12/12 completed Not Available Not Available Not Available neomycin 500 mg tablet 05/31 completed Not Available Not Available Not Available paroxetine 40 mg tablet TAKE 1/2 TABLET BY MOUTH EVERY NIGHT AT BEDTIME FOR 10 DAYS THEN TAKE 1 TABLET BY MOUTH AT BEDTIME THEREAFTE R 07/15 completed Not Available Not Available Not Available ondansetron 4 mg disintegrat ing tablet DISSOLVE 1 TABLET IN MOUTH EVERY 8 HOURS NEEDED FOR NAUSEA AND VOMITING active Not Available Not Available No t Available metformin ER 500 mg tablet,exte nded release 24 hr 1 tablet every day by oral route. 05/31 completed Not Available Not Available Not Available doxycycline hyclate 100 mg tablet TAKE 1 TABLET BY MOUTH TWICE DAILY 12/14 completed Not Available Not Available Not Available lamotrigine 100 mg tablet 1 tablet twice a day by oral route. 05/31 completed Not Available Not Available Not Available estradiol 0.1 mg/24 hr weekly transdermal patch APPLY 1 PATCH TOPICALLY ONCE A WEEK active Not Available Not Available No t Available prazosin 2 mg capsule TAKE 3 CAPSULES BY MOUTH AT BEDTIME active Not Available Not Available No t Available naproxen 500 mg tablet TAKE 1 TABLET BY MOUTH TWICE DAILY WITH MEALS 12/14 completed Not Available Not Available Not Available Vistaril 50 mg capsule 50 mg 3 times a day by oral route. 05/31 completed Not Available Not Available Not Available amoxicillin 875 mg-potassiu m clavulanate 125 mg tablet TAKE 1 TABLET BY MOUTH TWICE DAILY WITH BREAKFAST AND WITH SUPPER FOR 10 DAYS active Not Available Not Available No t Available Vitamin B-12 1,000 mcg tablet Take 1 tablet every day by oral route for 90 days. 04/04 completed Not Available Not Available Not Available amoxicillin 500 mg-potassiu m clavulanate 125 mg tablet TAKE 1 TABLET BY MOUTH TWICE DAILY 12/14 completed Not Available Not Available Not Available Dulcolax (bisacodyl) 5 mg tablet,dary yed release Take 2 tablets every day by oral route for 1 day. 05/03 completed Not Available Not Available Not Available simethicone 80 mg chewable tablet CHEW AND SWALLOW 1 TABLET BY MOUTH EVERY 6 HOURS NEEDED FOR UP TO 10 DAYS active Not Available Not Available No t Available cholestyram ine (with sugar) 4 gram powder for susp in a packet MIX AND DRINK 1 PACKET BY MOUTH TWICE DAILY NEEDED 02/19 completed Not Available Not Available Not Available nitrofurant oin monohydrate /macrocryst als 100 mg capsule TAKE 1 CAPSULE BY MOUTH TWICE DAILY FOR 1 WEEK THEN ONCE DAILY THEREAFTE R. 12/14 completed Not Available Not Available Not Available Vistaril 03/07 completed Not Available Not Available Not Available potassium chloride 03/07 completed Not Available Not Available Not Available atorvastati n 03/07 completed Not Available Not Available Not Available estradiol 03/07 completed Not Available Not Available Not Available levothyroxi ne 03/07 completed Not Available Not Available Not Available DHEA 03/07 completed Not Available Not Available Not Available lamotrigine 03/07 completed Not Available Not Available Not Available furosemide 03/07 completed Not Available Not Available Not Available Estrogens, Conjugated Vaginal 03/07 completed Not Available Not Available Not Available isosorbide mononitrate 03/07 completed Not Available Not Available Not Available potassium 03/07 completed Not Available Not Available Not Available metoprolol succinate 03/07 completed Not Available Not Available Not Available buspirone 03/07 completed Not Available Not Available Not Available Vitamin D3 03/07 completed Not Available Not Available Not Available metformin 03/07 completed Not Available Not Available Not Available ondansetron 03/07 completed Not Available Not Available Not Available Provigil 12/12 completed Not Available Not Available Not Available esomeprazol e magnesium 03/07 completed Not Available Not Available Not Available oxybutynin 12/12 completed Not Available Not Available Not Available hydrochloro thiazide 12.5 mg tablet 05/04 completed Not Available Not Available Not Available desvenlafax ine succinate ER 50 mg tablet,exte nded release 24 hr TAKE 1 TABLET BY MOUTH EVERY MORNING 12/14 completed Not Available Not Available Not Available desvenlafax ine succinate ER 100 mg tablet,exte nded release 24 hr TAKE 1 TABLET BY MOUTH ONCE DAILY IN THE MORNING active Not Available Not Available No t Available Pristiq 05/04 completed Not Available Not Available Not Available diclofenac 1 % topical gel 04/02 completed Not Available Not Available Not Available [facility] 10 billion cell-200 mg sprinkle capsule TAKE 1 CAPSULE BY MOUTH TWICE DAILY. 12/14 completed Not Available Not Available Not Available armodafinil 150 mg tablet TAKE 1 TABLET BY MOUTH ONCE DAILY active Not Available Not Available No t Available Uribel 12/12 completed Not Available Not Available Not Available Wal-Mucil Fiber (sugar) 3.4 gram/7 gram oral powder DISSOLVE 1 TEASPOONF UL BY MOUTH THREE TIMES DAILY FOR 30 DAYS 12/14 completed Not Available Not Available Not Available mirabegron ER 50 mg tablet,exte nded release 24 hr TAKE 1 TABLET BY MOUTH ONCE DAILY active Not Available Not Available No t Available Linzess 290 mcg capsule TAKE 1 CAPSULE BY MOUTH EVERY DAY 12/14 completed Not Available Not Available Not Available icosapent ethyl 1 gram capsule Take 2 capsules by mouth twice daily 2024 active Not Available Not Available Not Avai lable Vascepa 05/04 completed Not Available Not Available Not Available potassium chloride ER 20 mEq tablet,exte nded release 1 TABLET DAILY 04/02 completed Not Available Not Available Not Available armodafinil 200 mg tablet TAKE 1 TABLET BY MOUTH ONCE DAILY active Not Available Not Available No t Available Uro-MP 118 mg-10 mg-40.8 mg-36 mg capsule 04/04 completed Not Available Not Available Not Available Rexulti 3 mg tablet TAKE 1 TABLET BY MOUTH ONCE DAILY IN THE MORNING active Not Available Not Available No t Available Rexulti 2 mg tablet TAKE 1 TABLET BY MOUTH EVERY MORNING 05/31 completed Not Available Not Available Not Available Narcan 4 mg/actuatio n nasal spray USE DIRECTED ON PACKAGING FOR OPIOD OVERDOSE 12/14 completed Not Available Not Available Not Available Vraylar 1.5 mg capsule TAKE 1 CAPSULE BY MOUTH EVERY MORNING 04/04 completed Not Available Not Available Not Available Vraylar 3 mg capsule TAKE ONE (1) CAPSULE BY MOUTH EVERY MORNING 07/17 completed Not Available Not Available Not Available Vraylar 03/07 completed Not Available Not Available Not Available prazosin HCl (bulk) 03/07 completed Not Available Not Available Not Available Emgality Pen 120 mg/mL subcutaneou s pen injector INJECT 120MG SUBCUTANE OUSLY EVERY MONTH 02/19 completed Not Available Not Available Not Available Emgality 120 mg/mL subcutaneou s syringe 09/04 completed Not Available Not Available Not Available Motegrity 2 mg tablet TAKE 1 TABLET BY MOUTH EVERY DAY 12/14 completed Not Available Not Available Not Available Aimovig Autoinjecto r 140 mg/mL subcutaneou s auto-inject or INJECT 1 ML SUBCUTANE OUSLY ONCE EVERY MONTH active Not Available Not Available No t Available OneTouch Delica Plus Lancet 33 gauge USE TO CHECK GLUCOSE TWICE DAILY DIRECTED active Not Available Not Available No t Available OneTouch Delica Plus Lanc Dev 03/07 completed Not Available Not Available Not Available Emgality 300 mg/3 mL (100 mg/mL x 3) subcutaneou s syringe Inject by subcutane ous route for 30 days. 03/07 completed Not Available Not Available Not Available Nurtec ODT 75 mg disintegrat ing tablet DISSOLVE 1 TABLET BY MOUTH EVERY OTHER DAY active Not Available Not Available No t Available Gemtesa 75 mg tablet TAKE 1 TABLET BY MOUTH EVERY DAY 05/31 completed Not Available Not Available Not Available Vitals Date Recorded Body height Body mass index (BMI) Body weight Body temperature Oxygen saturation Oxygen saturation in Arterial blood by Pulse oximetry Heart rate Systolic blood pressure Diastolic blood pressure Provider Name and Address Organization Details Last Updated DateTime 165.1 cm 30.8 kg/m2 76790.5 9 g 97 [degF] 97 % 97 % 94 /min 140 mm[Hg] 80 mm[Hg] mariana johns [facility] & [place] 16:01:45 Social History Question Answer Notes LastModified by Ulaola Details LastModified Time Tobacco Smoking Status Former Smoker Justin santana, [facility] & [place] 02/28/2023 09:40:09 Do You Have An Advance Directive? Yes Information not available 02/28/2023 Are You Blind Or Do You Have Difficulty Seeing? No Information not available 02/28/2023 What Was The Date Of Your Most Recent Tobacco Screening? 07/15/2023 [email or web address] Information not available 01/12/2024 Are You Passively Exposed To Smoke? No Information not available 02/28/2023 How Much Tobacco Do You Smoke? 0.5 PPD Information not available 02/28/2023 How Many Years Have You Smoked Tobacco? 20 [email or web address] Information not available 01/12/2024 Sex: Female Functional Status Question Answer Note LastModified by [employer] Details LastModified Time Do you use any illicit or recreational drugs? No Information not available 02/28/2023 What is your level of alcohol consumption? None Information not available 02/28/2023 Do you or have you ever used smokeless tobacco? Never used smokeless tobacco Information not available 02/28/2023 What is your exercise level? None Information not available 02/28/2023 Mental Status Question Answer Note LastModified by Organization D etails LastModified Time Do you feel stressed (tense, restless, nervous, or anxious, or unable to sleep at night)? [id number] Information not available 01/12/2024 Family History Relationship Description Onset Age of this Age Resolved Age Notes LastModified by Organization Details LastModified Time Sister Family history unknown [email or web address] Not available 2024 13:54:43 Sister Disorder of thyroid gland [email or web address] Not available 2023 15:36:42 Father Disorder of thyroid gland [email or web address] Not available 2021 14:03:29 Father Hypercholest erolemia [email or web address] Not available 2021 14:03:29 Father Gastroesopha geal reflux disease [email or web address] Not available 2021 14:03:29 Father Hearing loss [email or web address] Not avai lable 11/19/2021 14:03:29 Father Disorder of endocrine system [email or web address] Not available 2021 14:03:29 Father Sleep disorder [email or web address] Not available 04/25 14:59:46 Father Hypertensive disorder [email or web address] Not available 2023 15:36:42 Mother Disorder of thyroid gland [email or web address] Not available 2021 14:03:29 Mother Mental health problem [email or web address] Not available 2021 14:03:29 Mother Osteoporosis [email or web address] Not avai lable 11/19/2021 14:03:29 Mother Heart disease [email or web address] Not available 2021 14:03:29 Mother Chronic obstructive pulmonary disease [email or web address] Not available 2021 14:03:29 Mother Hypercholest erolemia [email or web address] Not available 2021 14:03:29 Mother Myocardial infarction [email or web address] Not available 11/19 14:03:29 Mother Hypertensive disorder [email or web address] Not available 2021 12:44:00 Maternal Grandmother Mental health problem [email or web address] Not available 2023 15:36:42 Maternal Grandmother Osteoporosis [email or web address] Not available 0 03/07/2023 15:36:42 Maternal Grandfather Cerebrovascu lar accident [email or web address] Not available 15:36:42 Medical History Condition Response Other Y Kidney or Bladder Problems Y Thyroid Problems Y Depression Y GI Problems Y Osteoporosis/Osteopenia Y Anemia Y Spine Problems Y Obstructive Sleep Apnea Y Neurological Problems Y Anxiety Disorder Y Diabetes Y Obesity Y Vision or Eye Problems Y Arthritis Y Eczema Y Back Problems Y Reflux/GERD Y GERD/Reflux Y High Cholesterol Y Psychiatric/Mental Health Condition Y Headaches Y Hypertension Y Gynecological History Statement/Question Response Abnormal Pap N 02/21/2022 Date of Last Colonoscopy 03/23/2023 Sexually Active? Y Menses Monthly N Date of Last Pap Smear 10/14/2019 Current Control Method Sterilizati on Age at Menarche 9 Obstetrics History GPAL:G 0 P 0 0 0 0 Immunizations Vaccine Type Date Status Note Provider Nam e and Address Organization Details Recorded Time Influenza, split virus, quadrivalent, PF 3 completed Liliam Lopez NP [address] [place] [address], [address], [place], [address], [facility] & [place] 11/09/2022 13:30:10 Influenza, MDCK, quadrivalent, PF 2 completed Mariana santana [facility] & [place] 11/01/2022 12:11:06 COVID-19, mRNA, LNP-S, PF, 100 mcg/0.5mL dose or 50 mcg/0.25mL dose 2 completed Mariana Truman [facility] & [place] 11/01/2022 12:11:06 COVID-19, mRNA, LNP-S, PF, 100 mcg/0.5mL dose or 50 mcg/0.25mL dose 1 completed Mariana Truman santana [facility] & [place] 11/01/2022 12:11:06 COVID-19, mRNA, LNP-S, PF, 100 mcg/0.5mL dose or 50 mcg/0.25mL dose 1 completed Mariana santana [facility] & [place] 11/01/2022 12:11:06 COVID-19, mRNA, LNP-S, bivalent, PF, 50 mcg/0.5 mL or 25mcg/0.25 mL dose 2 completed Mariana Truman santana [facility] & [place] 11/01/2022 12:11:06 influenza, unspecified formulation 8 completed Mariana Truman null, [place] - [facility] [place] & [place] 11/01/2022 12:11:06 Tdap 8 completed Mariana Truman null, [place] [facility] [place] & [place] 11/01/2022 12:11:06 Influenza, split virus, trivalent, preservative 1 completed Mariana Truman null, [place] [facility] [place] & [place] 11/01/2022 12:11:06 Influenza, split virus, trivalent, preservative 9 completed Mariana Truman null, [place] - [facility] [place] & [place] 11/01/2022 12:11:06 Influenza, split virus, trivalent, preservative 3 completed Mariana Truman null, [place] - [facility] [place] & [place] 11/01/2022 12:11:06 Td (adult), 2 Lf tetanus toxoid, preservative free, adsorbed 6 completed Mariana Truman null, [place] - [facility] & [place] 11/01/2022 12:11:06 Hep B, adult 9 completed Mariana Truman null, [place] - [facility] [place] & [place] 11/01/2022 12:11:06 Hep B, adult 8 completed Mariana Truman null, [place] - [facility] & [place] 11/01/2022 12:11:06 Influenza, split virus, quadrivalent, PF 0 completed Mariana Truman null, [place] - [facility] [place] & [place] 11/01/2022 12:11:06 Influenza, split virus, quadrivalent, PF 6 completed Mariana Truman null, [place] [facility] [place] & [place] 11/01/2022 12:11:06 Influenza, split virus, quadrivalent, PF 7 completed Mariana Truman null, [place] [facility] [place] & [place] 11/01/2022 12:11:06 Influenza, split virus, quadrivalent, PF 8 completed [place] - [place] & [place] 11/01/2022 12:11:06 Hep A-Hep B 9 completed CYNTHIA [place] - [place] & [place] 11/01/2022 12:11:06 Past Encounters Encounter ID Performer Location Encounter Start Date Encounter Closed Date Diagnosis/Indication Diagnosis SNOMED-CT Code Diagnosis ICD10 Code Diagnosis Note [id number] Liliam Lopez NP [facility] Medicine- Dept [id number] [place] [address] 05/31/2024 14:39:34 05/31/2024 16:46:09 Ileostomy present 172272375 Z93.2 pt doing well with the new ileostomys he is working with her Ostomy nurse-Deejay non Hyponatremia 99630175 E8 7.1 check CMP to see how sodium is doing now that she is stable post discharge 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 500520027 D50.0 check iron and CBC Generalize d anxiety disorder 04843917 F41.1 taper down to 1 tablet dailypt is wanting to try and get off the medication still seeing Psych in [place] [facility] Concerns Section Related Observation LastModified by Organization Detai ls LastModified Time None Recorded Concern Status LastModified by Organization Details LastModified Time None Recorded Payers Encounter Date Sequence Insurance Name Policy Number Policy Lacy Covered Member ID Lacy Member ID Guarantor Name 05/31/2024 1 [facility] (MEDICAID HMO) Demetra Diaz [id number] Demetra Diaz Notes Date Note Type Note Provider Name and Address Organization Details Recorded Time 05/31/2024 text/html Patient presents today in the clinic for hospital follow-up from her recent ileostomy placement. Patient opted to have an elective ileostomy done so that she could be done with all her GI issues. Patient has had a colectomy in the past and then developed severe constipation which then turned into severe diarrhea. Patient states she was not able to eat hardly anything without having to be in the bathroom within 10 minutes of eating. She states that she was pretty much stuck at home and was not able to have any quality of life. And the frequent diarrhea caused her to lose a lot of weight. Patient states she was absolutely miserable. She states that she is really surprised that she is done really well. She states that she is actually mentally handling it better than she was expecting. She does have an ostomy nurse -Erna -that she works with. She states that she feels better and her mental health is better. Patient needs to have some labs recheck. She reports that her A1c was 5.4% when she was in the hospital. Patient states that she needs to get an order for ileostomy supplies from [facility]. Liliam Lopez NP [address] [place] [address], [address], [place], [address], [place] - [facility] - [place] & [place] 06/02/2024 11:41:26 OBGyn Episode No OBEpisode recorded.
--- OUTSIDE RECORDS SUMMARY | 2024-07-16 15:12 | XMS_ITS | Encounter Summary ---
Author Organization [facility] In [place]atives Address [address] [place] [address] Care Team Providers Care Sap Fico Architect Name Role Phone Deandra Lopez APRN Primary Care Provider [phone]- [phone] Deandra Lopez APRN Primary Care Provider [phone]- [phone] Encounter Details Date Type Department Care Team (Late st Contact Info) Description 08/22/2021 Transcribed Document [facility] [place] [facility] [place] [address] ProviderElaine MD [address] [place] [id number] Social History Tobacco Use Types Packs/Day [...] Cerner Conversion Note - Historical ProviderMD - 08/22/2021 7:12 AM CDT Patient: DEMETRA MARTINEZ Age: 41 Years Sex: Female : 1980 [employer] POST OP NOTE Subjective: Objective: Vitals Signs (last 24 hrs) Last Charted Minimum Maximum Temp 97.8 (AUG 22 06:02) 97.8 (AUG 22 06:02) 99 (AUG 21 11:00) Mon HR 83 (AUG 22 06:02) 83 (AUG 22 02:26) 104 (AUG 21 11:00) Resp Rate 16 (AUG 22 06:02) 15 (AUG 22 02:26) 20 (AUG 21 13:00) SBP 93 (AUG 22 06:02) 93 (AUG 21 21:46) 118 (AUG 21 11:00) DBP L 51 (AUG 22 06:02) L 51 (AUG 21 21:46) 66 (AUG 21 11:00) MAP 64 (AUG 22 06:02) 62 (AUG 21 21:46) 84 (AUG 21 11:00) SpO2 L 93 (AUG 22 06:02) L 92 (AUG 21 10:00) 96 (AUG 21 11:00) IV Fluids & Drains Last 24 Hours (7a-7a) Intake (1) Normal Saline 1,000 mL 1200 mL Intake Total: 1200mL Output (1) Surgical Drain/Tube Output: 1525 mL Output Total: 1525mL Exam: Abdomen soft. Wounds clean and intact. Impression: S/P subtotal colectomy and ileorectal anastomosis 2 weeks ago. Yesterday, return to the hospital with tachycardia and mild elevation of white count with a CT scan revealing an intra-abdominal abscess. This was drained with 2 drains yesterday with purulent output. A total of 1500 cc. I note that white count has normalized today, heart rate normalized, temp curve down. Patient has moved her bowels. Plan: Will need ongoing antibiotics. Will initiate drain irrigation. Anticipate home tomorrow with antibiotics and drain irrigation by patient as she is not eligible for home health. documented in this encounter Plan of Treatment Upcoming Encounters Date Type Department Care Team (Late st Contact Info) Description 07/17/2024 11:00 AM EDT Appointment [facility] Wound [facility] Ostomy Therapy [address] [place] [id number] 08/28/2024 9:15 AM EDT Office Visit [facility] Urology - [address] [place] [address] Chandrika Santana, [employer] [address] [place] [address] 04/17/2025 8:30 AM EDT Office Visit [facility] Cardiology - [place] [address] [place] [address] Tamara Sow PA-C [address] [facility] [address] [place] [address] documented as of this encounter Visit Diagnoses Not on filedocumented in this encounter Care Teams S[employer] Architect Relationship Specialty Start Date End Date Deandra Lopez APRN PCP - General Nurse Practitioner 04/18/22 06/03/24 Deandra Lopez, [employer] AIDE [address] [place] [address] PCP - General Nurse Practitioner 06/04/24 documented as of this encounter
--- OUTSIDE RECORDS SUMMARY | 2024-07-16 15:12 | XMS_ITS | Clinical Summary ---
Author Organization [facility] [employer] Address [address] [place] [address] Care Team Providers Care Manager Lan Name Role Phone Deandra Lopez APRN Primary Care Provider [phone] Allergies Active Allergy Reactions Criticality Noted Date Comments Diclofenac Other (See Comments) 2020 Unknown Hydroxyzine Rash Low 03/12/2015 Paroxetine Hives,Itching,Nausea Only,Palpitations,Lianne rtness Of Breath High 05/17/2022 Other Reaction(s): Dizziness, Headache, Not available Prednisone Rash Low 04/16/2024 Pseudoephedrine Palpitations Low 11/07/2021 Steroids Hives High 11/07/2021 Sumatriptan Palpitations Low 04/17/2022 Tape, Permeable Adhesive Rash Low 04/16/2024 Bupropion Hcl Hives High 11/07/2021 Medications atorvastatin (LIPITOR) 80 MG tablet Take 1 tablet (80 mg total) by mouth nightly. Active levothyroxine (SYNTHROID, LEVOTHROID) 125 MCG tablet Take 1 tablet (125 mcg total) by mouth Every morning on an empty stomach. Active desvenlafaxine succinate (PRISTIQ) 100 MG 24 hr tablet Take 1 tablet (100 mg total) by mouth daily. Active esomeprazole (NexIUM) 40 MG capsule Take 1 capsule (40 mg total) by mouth daily. 02/25/19 Active armodafiniL 200 mg Tab Take 1 tablet by mouth daily. 04/04/19 Active icosapent ethyL (VASCEPA) 1 gram capsule Take 2 capsules (2 g total) by mouth 2 (two) times daily. 03/29/19 Active potassium chloride (KLOR-CON) 20 mEq CR tablet Take 1 tablet (20 mEq total) by mouth daily as needed Take with Lasix as directed. 03/25/19 Active isosorbide mononitrate (IMDUR) 30 MG 24 hr tabletIndications: Hypertension, unspecified type Take 1 tablet (30 mg total) by mouth daily. 30 tablet 10 01/08/20 Active estradioL (CLIMARA) 0.1 mg/[address] 1 patch on the skin once a week. Active prazosin (MINIPRESS) 2 MG capsule Take 3 capsules (6 mg total) by mouth nightly. Active ALPRAZolam (XANAX) 1 MG tablet Take 1 tablet (1 mg total) by mouth 2 (two) times daily as needed for anxiety. Active cyanocobalamin 500 MCG tablet Take 1 tablet (500 mcg total) by mouth daily. Active lamoTRIgine (LaMICtal) 150 MG tablet Take 1 tablet (150 mg total) by mouth 2 (two) times daily. Active metoprolol succinate (TOPROL-XL) 50 MG 24 hr tablet Take 1 tablet (50 mg total) by mouth 2 (two) times daily. Active simethicone (MYLICON) 80 MG chewable tablet Take 1 tablet (80 mg total) by mouth every 6 (six) hours as needed for flatulence. Active rimegepant (Nurtec ODT) 75 mg TbDL Take 1 tablet by mouth every other day. Active triamcinolone (KENALOG) 0.1 % topical cream Apply 1 Application topically 2 (two) times daily Apply to affected areas as directed . Active ondansetron (ZOFRAN-ODT) 4 MG disintegrating tablet Take 1 tablet (4 mg total) by mouth every 8 (eight) hours as needed for nausea or vomiting. Active brexpiprazole (Rexulti) 3 mg tab tablet Take 1 tablet (3 mg total) by mouth daily. Active Missing or Non-Formulary Medication Apply 1 Application topically 4 (four) times daily as needed (for Pain) Compounded Cream: amantadine 10%/gabapentin 10%/piroxicam 0.5%/ketamine 4%/prilocaine 5%; apply to affected area as directed. Active erenumab-aooe (Aimovig Autoinjector) 140 mg/mL AtIn Inject 140 mg under the skin every 28 days. Active acetaminophen (TYLENOL) 500 MG tablet Take 2 tablets (1,000 mg total) by mouth every 6 (six) hours as needed for pain or fever. Active FLUoxetine (PROzac) 40 MG capsule Take 1 capsule (40 mg total) by mouth daily. 07/10/19 25 Active oxybutynin (DITROPAN) 5 MG tabletIndications: Bladder pain Take 1 tablet (5 mg total) by mouth every 8 (eight) hours as needed (bladder pain). 90 tablet 07/12/19 25 026 Active gabapentin (NEURONTIN) 300 MG capsule Take 1 capsule (300 mg total) by mouth nightly. 11/21/19 24 025 mirabegron (Myrbetriq) 50 mg Tb24 ER tablet Take 1 tablet (50 mg total) by mouth daily. 025 Discontinu ed(Other) Active Problems Problem Noted Date Diagnosed Date Abdominal pain 06/05/2024 Intra-abdominal fluid collection 06/04/2024 Constipation 05/22/2024 Anxiety Chest pain CPAP (continuous positive airway pressure) depen dence Depression Diabetes Dizziness WIGGINS (dyspnea on exertion) Edema GERD (gastroesophageal reflux disease) HLD (hyperlipidemia) HTN (hypertension) Hypothyroidism IBS (irritable bowel syndrome) Migraines BETTY (obstructive sleep apnea) PTSD (post-traumatic stress disorder) Tachycardia Vitamin D deficiency Encounters Date Type Department Care Team Description 07/11/2024 2:15 PM EDT Office Visit [facility] Urology - [address] [place] [address] Chandrika Santana APRN Bladder pain (Primary Dx) 07/11/2024 Travel 07/04/2024 9:48 AM EDT - 07/04/2024 11:59 PM EDT Hospital Encounter [facility] [address] [place] [address] Discharge Disposition: Home or Self Care 07/04/2024 Outside Orders [facility] - [address] [facility] [address] [place] [address] Heath Robledo MD Bladder retention (Primary Dx) 07/04/2024 Travel 06/21/2024 10:32 AM EDT - 06/21/2024 11:59 PM EDT Hospital Encounter [facility] 1 [place] [address] Discharge Disposition: Home or Self Care 06/21/2024 Travel 06/04/2024 6:26 PM EDT - 06/05/2024 2:41 PM EDT Hospital Encounter [facility] Emergency Department 1 [place] [address] Mekhi Santana DO Tovar, Jesus V, MD Farooqui, Jamil, MD Abdominal pain (Primary Dx); Abdominal wall seroma, initial encounter; Hyponatremia; Abdominal pain, unspecified abdominal location Discharge Disposition: Home or Self Care 06/04/2024 Travel 05/28/2024 11:00 AM EDT - 05/28/2024 11:59 PM EDT Hospital Encounter [facility] 1 [place] [address] Discharge Disposition: Home or Self Care 05/28/2024 Travel 05/22/2024 2:18 PM EDT Anesthesia Event [facility] Operating Room 1 [place] [address] Janusz Benito MD Cornea, Mihaela, MD 05/22/2024 1:28 PM EDT - 05/22/2024 3:50 PM EDT Surgery [facility] Operating Room 1 [place] [address] Heath Robledo MD (EXPLORATORY LAPAROTOMY WITH CREATION OF END ILEOSTOMY) 05/22/2024 10:39 AM EDT - 05/25/2024 5:00 PM EDT Hospital Encounter [facility] [address] [place] [address] Heath Robledo MD Farran, Michael D, PA-C Evans, Sophia, PA-C Huffman, Joshua B, MD Elbita, Omar, MD Abnormal defecation Discharge Disposition: Home or Self Care 05/22/2024 Travel 05/15/2024 10:05 AM EDT - 05/15/2024 11:59 PM EDT Hospital Encounter [facility] Diagnostic Imaging 1 [place] [address] Heath Robledo MD Preop testing Discharge Disposition: Home or Self Care 05/15/2024 8:47 AM EDT - 05/15/2024 10:04 AM EDT Hospital Encounter [facility] Preadmission Testing 1 [place] [address] Heath Robledo MD Preop testing (Primary Dx) Discharge Disposition: Home or Self Care 05/15/2024 7:57 AM EDT - 05/15/2024 8:46 AM EDT Hospital Encounter [facility] 1 [place] [address] Discharge Disposition: Home or Self Care 05/15/2024 Travel 05/07/2024 12:41 PM EDT - 05/07/2024 11:59 PM EDT Hospital Encounter [facility] 1 [place] [address] Discharge Disposition: Home or Self Care 05/07/2024 Travel 05/01/2024 11:00 AM EDT - 05/01/2024 11:59 PM EDT Hospital Encounter [facility] 1 [place] [address] Discharge Disposition: Home or Self Care 05/01/2024 Travel 04/16/2024 9:15 AM EDT Office Visit [facility] Cardiology - [address] [phone] Tamara Sow PA-C Hypertension, unspecified type (Primary Dx); Chronic chest pain from Last 3 Months Family History Medical History Relation Name Comments Diabetes Father Hyperlipidemia Father Tuberculosis Maternal Grandfather Hyperlipidemia Maternal Grandmother Tuberculosis Maternal Grandmother Coronary artery disease Mother Hyperlipidemia Mother Hypertension Mother Cancer Other Diabetes Other Hyperlipidemia Other Cancer Paternal Grandfather Relation Name Status Comments Father Maternal Grandfather Maternal Grandmother Mother Other Paternal Grandfather Social History Tobacco Use Types Packs/Day Years [...] your living situation today? I have a [facility] place to live 05/22/[address] you li ve. Do you have problems with any of the following? None of the above 05/22/2024 Food Insecurity Answer Date Recorded Within the past 12 months, y ou worried that your food would run out before you got money to buy more. Never true 05/22/2024 Within the past 12 months, tacho he food you bought just didn't last [...] Do you speak a language other than [facility]? No 05/22/2024 Do you want help [...] Orientation Straight 12/08/2021 2: 39 PM CDT Last Filed Vital Signs Vital Sign Reading Time Taken Comments Blood Pressure 106/69 07/11/2024 1:17 PM EDT Pulse 78 06/05/2024 8:45 AM EDT Temperature 37.2 C (98.9 F) 06/04/2024 6:24 PM EDT Respiratory Rate 15 06/05/2024 8:45 AM EDT Oxygen Saturation 93% 06/05/2024 8:45 AM EDT Inhaled Oxygen Concentration - - Weight 82.1 kg (181 lb) 07/11/2024 1:17 PM EDT Height 165.1 cm (5' 5 ) 07/11/2024 1:17 PM EDT Body Mass Index 30.12 07/11/2024 1:17 PM EDT Plan of Treatment Upcoming Encounters Date Type Department Care Team (Late st Contact Info) Description 07/17/2024 11:00 AM EDT Appointment [facility] [address] [place] [address] 08/28/2024 9:15 AM EDT Office Visit [facility] Urology - [address] [place] [address] Chandrika Santana, TRIAL MGR [address] [place] [address] 04/17/2025 8:30 AM EDT Office Visit [facility] Cardiology - [place] [address] [place] [address] Tamara Sow PA-C [address] [facility] [address] [place] [address] Health Maintenance Due Date Last Done Comments CT Colonography 1979 Colonoscopy 1979 Colorectal Cancer Screening 1979 Diabetic Kidney Health Evalu ation (KED) 1979 FOBT/FIT 1979 Fit-DNA (Cologuard) 1979 Sigmoidoscopy 1979 Diabetic Eye Exam 1989 Diabetic foot exam 1989 HIV Screening 1994 Hepatitis C Screening 1997 Pneumococcal Vaccine: 0-49 Y ears (1 of 2 - PCV) 1998 Pap Smear 02/13/2000 DTAP/TDAP/TD VACCINES (3 - T d or Tdap) 01/06/2018 01/07/2008, 09/21/1995 Breast Cancer Screening 2019 COVID-19 VACCINE (2023-2 5 season) 2023 10/20/2021, 04/20/2021, 11/27/2020, Additional history exists Lipid Panel 02/13/2024 Influenza Vaccine (Season Ended) 2024 10/01/19 22 Hemoglobin A1C 11/14/2024 05/15/2024 Tobacco Cessation Counseling and Screening (12+) 07/11/2025 07/11/2024 Procedures Procedure Name Priority Date/Time Associated Diagnosis Comments POCT URINALYSIS, AUTO W/O SCOPE Routine 07/11/2024 1:31 PM EDT Bladder pain NOVA GLUCOSE POC Routine 06/05/2024 2:05 PM EDT COMPREHENSIVE METABOLIC PANEL STAT 06/05/2024 3:27 AM EDT CBC HEMOGRAM (SJ-BKR) STAT 06/05/2024 3:27 AM EDT BLOOD CULTURE STAT 06/04/2024 9:26 PM EDT BLOOD CULTURE STAT 06/04/2024 9:[address] ABDOMEN/PELVIS WITH IV CONTRAST STAT 06/04/2024 7:32 PM EDT URINALYSIS, REFLEX MICROSCOPIC AND CULTURE IF INDICATED STAT 06/04/2024 7:03 PM EDT COMPREHENSIVE METABOLIC PANEL STAT 06/04/2024 6:31 PM EDT LACTIC ACID WITH REFLEX STAT 06/04/2024 6:31 PM EDT CBC W/ AUTO DIFF STAT 06/04/2024 6:31 PM EDT NOVA GLUCOSE POC Routine 05/25/2024 12:4 2 PM EDT BASIC METABOLIC PANEL Routine 05/25/2024 6:09 AM EDT CBC W/ AUTO DIFF Routine 05/25/2024 6:09 AM EDT NOVA GLUCOSE POC Routine 05/25/2024 6:06 AM EDT PHOSPHORUS Routine 05/25/2024 1:24 AM EDT HEMOGLOBIN AND HEMATOCRIT Routine 05/25/2024 1:24 AM EDT NOVA GLUCOSE POC Routine 05/25/2024 12:0 1 AM EDT FS_MODEL_IP_TRANSFUS E RED BLOOD CELLS Routine 05/24/2024 9:50 PM EDT FS_MODEL_IP_TRANSFUS E RED BLOOD CELLS Routine 05/24/2024 6:[address] ABDOMEN/PELVIS WITHOUT IV CONTRAST STAT 05/24/2024 5:48 PM EDT NOVA GLUCOSE POC Routine 05/24/2024 4:35 PM EDT FS_MODEL_IP_PREPARE RBC Routine 05/24/2024 3:21 PM EDT BASIC METABOLIC PANEL Routine 05/24/2024 1:18 PM EDT CBC HEMOGRAM (SJ-BKR) Routine 05/24/2024 1:18 PM EDT NOVA GLUCOSE POC Routine 05/24/2024 10:1 8 AM EDT NOVA GLUCOSE POC Routine 05/24/2024 5:53 AM EDT XR CHEST AP PORTABLE Routine 05/24/2024 1:21 AM EDT XR ABDOMEN/KUB 1 VIEW PORTABLE STAT 05/24/2024 1:18 AM EDT FS_MODEL_IP_ECG 12-LEAD STAT 05/24/2024 12:58 AM EDT HIGH SENSITIVITY TROPONIN I Routine 05/24/2024 12:54 AM EDT CBC HEMOGRAM (SJ-BKR) Routine 05/24/2024 12:54 AM EDT BASIC METABOLIC PANEL Routine 05/24/2024 12:54 AM EDT NOVA GLUCOSE POC Routine 05/23/2024 7:44 PM EDT NOVA GLUCOSE POC Routine 05/23/2024 3:49 PM EDT NOVA GLUCOSE POC Routine 05/23/2024 10:5 9 AM EDT CBC HEMOGRAM (SJ-BKR) Routine 05/23/2024 8:32 AM EDT MAGNESIUM Routine 05/23/2024 8:31 AM EDT CALCIUM, IONIZED Routine 05/23/2024 8:31 AM EDT BASIC METABOLIC PANEL Routine 05/23/2024 8:31 AM EDT NOVA GLUCOSE POC Routine 05/23/2024 5:18 AM EDT NOVA GLUCOSE POC Routine 05/23/2024 12:4 0 AM EDT TISSUE EXAM [facility] AP Routine 05/22/2024 4:05 PM EDT Abnormal defecation ANESTHESIA INTUBATION Routine 05/22/2024 2:25 PM EDT DC EXPLORATORY LAPAROTOMY CELIOTOMY W/WO BIOPSY SPX 05/22/2024 2:18 PM EDT Abnormal defecation Case Notes IN 1130, 2HRS(A), PA REQUESTED, PASS HC TAP BLOCK BILATERAL (BLK RM) Routine 05/22/2024 12:30 PM EDT POCT-POTASSIUM Routine 05/22/2024 11:44 AM EDT ISTAT GLUCOSE POC Routine 05/22/2024 11: 44 AM EDT TYPE AND SCREEN ([place] BKR) STAT 05/22/2024 11:43 AM EDT POCT-POTASSIUM Routine 05/22/2024 11:37 AM EDT ISTAT GLUCOSE POC Routine 05/22/2024 11: 37 AM EDT EKG-SCANNED 05/22/2024 XR CHEST PA AND LATERAL Routine 05/15/2024 10:13 AM EDT Preop testing COMPREHENSIVE METABOLIC PANEL Routine 05/15/2024 9:39 AM EDT Preop testing HEMOGLOBIN A1C STAT 05/15/2024 9:39 AM EDT Preop testing CBC W/ AUTO DIFF STAT 05/15/2024 9:39 AM EDT Preop testing FS_MODEL_IP_ECG 12-LEAD Routine 04/16/2024 1:24 PM EDT Hypertension, unspecified type from Last 3 Months Results * (ABNORMAL) POCT urinalysis dipstick (07/11/2024 1:31 PM EDT) Glucose Urine, POC Negative Negative Bilirubin Urine, POC Negative Negative Ketones Urine, POC Negative Negative Specific [place] Urine, POC 1.020 SG Ratio 1.005 SG [...] POC Negative Negative 07/11/2024 1:31 PM EDT us Chandrika Santana APRN POINT OF CARE TEST ORDERABLES Final Result * Glucose, Nova Meter (06/05/2024 2:05 PM EDT) Only the most recent of12 resultswithin the time period is included. POC-GLUCOSE 85 70 - 110 mg/dL 06/05/2024 2:07 PM EDT [facility] Comment:In the event of poor peripheral blood flow, venous or arterial blood should be used due to the potential of erroneous results. [employer] Technology Instructor [id number] 06/05/2024 2:07 PM EDT [facility] Blood WHOLE BLOOD / Unknown 06/05/2024 2:05 PM EDT 06/05/2024 2:07 PM EDT Narrative [facility] - 06/05/2024 2:07 PM EDT [employer] Technology Instructor ID is - [id number] us Owen Tellez MD POINT OF CARE TEST ORDERABLES Final Result [facility] [address] [phone] * (ABNORMAL) CBC - Hemogram (SJ-BKR) (06/05/2024 3:27 AM EDT) Only the most recent of4 resultswithin the time period is included. WBC 7.5 4.0 - 10.0 K/ L 06/05/2024 3:33 AM EDT [facility] RBC 3.67(L) 3.93 - 5.22 M/ L 06/05/2024 3:33 AM EDT [facility] Hemoglobin 10.5(L) 11.2 - 15.7 GM/DL 06/05/2024 3:33 AM EDT [facility] Hematocrit 31.0(L) 34.1 - 44.9 % 06/05/2024 3:33 AM EDT [facility] MCV 85 79 - 95 fL 06/05/2024 3:33 AM EDT [facility] MCH 28.6 25.6 - 32.2 pg 06/05/2024 3:33 AM EDT [facility] MCHC 33.9 32.2 - 35.5 GM/DL 06/05/2024 3:33 AM EDT [facility] RDW 12.9 11.7 - 14.4 % 06/05/2024 3:33 AM EDT [facility] Platelets 284 140 - 375 K/CU MM 06/05/2024 3:33 AM EDT [facility] MPV 8.3(L) 9.4 - 12.3 fL 06/05/2024 3:33 AM EDT [facility] Blood Venipuncture / Unknown 06/05/2024 3:27 AM EDT 06/05/2024 3:29 AM EDT us Selvin Hernandez MD LAB BLOOD ORDERABLES Final Res ult [facility] [address] [phone] * (ABNORMAL) Comprehensive Metabolic Panel (06/05/2024 3:27 AM EDT) Only the most recent of3 resultswithin the time period is included. Sodium 132(L) 136 - 145 meq/L 06/05/2024 3:56 AM EDT [facility] Potassium 3.5 3.4 - 5.1 meq/L 06/05/2024 3:56 AM EDT [facility] Chloride 101 98 - 112 meq/L 06/05/2024 3:56 AM EDT [facility] CO2 26 22 - 29 meq/L 06/05/2024 3:56 AM EDT [facility] Calcium 8.4 8.4 - 10.2 mg/dL 06/05/2024 3:56 AM EDT [facility] Glucose 91 74 - 100 mg/dL 06/05/2024 3:[address] [facility] BUN 3.3(L) 7.0 - 18.7 mg/dL 06/05/2024 3:[address] [facility] Creatinine 0.69 0.57 - 1.11 mg/dL 06/05/2024 3:[address] [facility] BUN/Creatinine 5(L) 8 - 20 06/05/2024 3:[address] [facility] eGFR (mL/min/1.73m2) 109 >=60 mL/min/1. 73m2 06/05/2024 3:[address] [facility] Albumin 3.3(L) 3.5 - 5.0 g/dL 06/05/2024 3:[address] [facility] Alkaline Phosphatase 166(H) 40 - 150 U/L 06/05/2024 3:[address] [facility] ALT 20 <=34 U/L 06/05/2024 3:[address] [facility] Comment: ALT2 reagent used for testing does not contain P5P supplementation and therefore may miss ALT elevations in patients with B6 deficiency. This population may be as high as 10% in the [place], with risk factors including malabsorption, drug interactions, and alcoholic hepatitis. AST 19 11 - 34 U/L 06/05/2024 3:[address] [facility] Comment: AST2 reagent used for testing does not contain P5P supplementation and therefore may miss AST elevations in patients with B6 deficiency. This population may be as high as 10% in the [place], with risk factors including malabsorption, drug interactions, and alcoholic hepatitis. Total Bilirubin 0.5 0.2 - 1.2 mg/dL 06/05/2024 3:[address] [facility] Protein, Total 6.5 6.4 - 8.3 g/dL 06/05/2024 3:[address] [facility] Globulin 3.2 2.5 - 4.1 g/dL 06/05/2024 3:[address] [facility] Anion Gap 9 4 - 12 06/05/2024 3:[address] [facility] A/G Ratio 1.0 0.7 - 1.9 06/05/2024 3:56 AM EDT [facility] Osmolality Calc 260.8 mOsm/kg 3:56 AM EDT [facility] Blood Venipuncture / Unknown 06/05/2024 3:27 AM EDT 06/05/2024 3:29 AM EDT us Selvin Hernandez MD LAB BLOOD ORDERABLES Final Res ult Performing Organization Address [facility] Co de Phone Number [facility] [address] [place] [address] * Blood Culture (06/04/2024 9:26 PM EDT) Only the most recent of2 resultswithin the time period is included. Result No growth in 5 days 06/09/2024 11:00 PM EDT [facility] Blood ENTIRE RIGHT UPPER ARM / Unknown Venipuncture / Unknown 06/04/2024 9:26 PM EDT 06/04/2024 9:32 PM EDT Narrative [facility] - 06/09/2024 11:00 PM EDT Blood volume is not within specification. May compromise patient blood culture results. us Selvin Hernandez MD MICROBIOLOGY - GENERAL ORDERAB LES Final Result Performing Organization Address [facility] Co de Phone Number [facility] [address] [phone] * CT ABDOMEN/PELVIS WITH IV CONTRAST (06/04/2024 [...] Transcribed by Terrance Ascencio. Kayla Marie APRN IM CT ORDERABLES Final Resul t * Urinalysis, Reflex Microscopic and Culture If Indicated (06/04/2024 7:03 PM EDT) Color, UA Colorless 06/04/2024 7:08 PM EDT [facility] Clarity, UA Clear Clear 06/04/2024 7:08 PM EDT [facility] Specific [place], UA 1.006 1.005 - 1.030 06/04/2024 7:08 PM EDT [facility] pH, UA 6.5 6.0 - 8.0 06/04/2024 7:08 PM EDT [facility] Leukocytes, UA Negative Negative 06/04/2024 7:08 PM EDT [facility] Nitrite, UA Negative Negative 06/04/2024 7:08 PM EDT [facility] Protein, UA Negative Negative 06/04/2024 7:08 PM EDT [facility] Glucose, UA Normal Normal 06/04/2024 7:08 PM EDT [facility] Ketones, UA Negative Negative 06/04/2024 7:08 PM EDT [facility] Bilirubin, UA Negative Negative 06/04/2024 7:08 PM EDT [facility] Blood, UA Negative Negative 06/04/2024 7:08 PM EDT [facility] Urobilinogen, UA Normal Normal 06/04/2024 7:08 PM EDT [facility] Specimen Source Urine, Clean Catch 06/04/2024 7:08 PM EDT [facility] Urine URINE SPECIMEN COLLECTION, CLEAN CATCH / Unknown 06/04/2024 7:03 PM EDT 06/04/2024 7:03 PM EDT us Kayla Marie APRN URINE ORDERABLES Final Result [facility] [address] [place] [id number] [phone] * (ABNORMAL) CBC with Auto Diff (06/04/2024 6:31 PM EDT) Only the most recent of3 resultswithin the time period is included. WBC 8.0 4.0 - 10.0 K/ L 06/04/2024 6:53 PM EDT [facility] RBC 3.95 3.93 - 5.22 M/ L 06/04/2024 6:53 PM EDT [facility] Hemoglobin 11.3 11.2 - 15.7 GM/DL 06/04/2024 6:53 PM EDT [facility] Hematocrit 32.9(L) 34.1 - 44.9 % 06/04/2024 6:53 PM EDT [facility] MCV 83 79 - 95 fL 06/04/2024 6:53 PM EDT [facility] MCH 28.6 25.6 - 32.2 pg 06/04/2024 6:53 PM EDT [facility] MCHC 34.3 32.2 - 35.5 GM/DL 06/04/2024 6:53 PM EDT [facility] RDW 12.8 11.7 - 14.4 % 06/04/2024 6:53 PM EDT [facility] Platelets 318 140 - 375 K/CU MM 06/04/2024 6:53 PM EDT [facility] MPV 8.2(L) 9.4 - 12.3 fL 06/04/2024 6:53 PM EDT [facility] % Neutros 72(H) 34 - 71 % 06/04/2024 6:53 PM EDT [facility] % Lymphs 19 19 - 52 % 06/04/2024 6:53 PM EDT [facility] % Monos 5 5 - 13 % 06/04/2024 6:53 PM EDT [facility] % Eos 4 1 - 6 % 06/04/2024 6:53 PM EDT [facility] % Baso 1 0 - 1 % 06/04/2024 6:53 PM EDT [facility] NRBC Absolute <0.01 0 - 0.012 K/ul 06/04/2024 6:53 PM EDT [facility] # Neutros 5.76 1.56 - 6.13 K/ L 06/04/2024 6:53 PM EDT [facility] # Lymphs 1.51 1.18 - 3.74 K/ L 06/04/2024 6:53 PM EDT [facility] # Monos 0.39 0.24 - 0.86 K/ L 06/04/2024 6:53 PM EDT [facility] # Eos 0.28 0.04 - 0.36 K/ L 06/04/2024 6:53 PM EDT [facility] # Baso 0.06 0.01 - 0.08 K/ L 06/04/2024 6:53 PM EDT [facility] Immature Granulocytes-Re lative 0.20 0.01 - 0.43 % 06/04/2024 6:53 PM EDT [facility] # IG <0.03 0.00 - 0.03 K/uL 06/04/2024 6:53 PM EDT [facility] Blood Venipuncture / Unknown 06/04/2024 6:31 PM EDT 06/04/2024 6:51 PM EDT Narrative [facility] - 06/04/2024 6:53 PM EDT When [...] Flag noted Atypical Lymph flag noted us Kayla Marie APRN LAB BLOOD ORDERABLES Final Re sult [facility] [address] [place] [address] * Lactic Acid with reflex (SJ) (06/04/2024 6:31 PM EDT) Lactic Acid Level (mmol/L) 1.0 0.5 - 2.2 mmol/L 06/04/2024 7:18 PM EDT [facility] Blood Venipuncture / Unknown 06/04/2024 6:31 PM EDT 06/04/2024 6:50 PM EDT Kayla Marie APRN LAB BLOOD ORDERABLES Final Re sult [facility] [address] [phone] * (ABNORMAL) Basic Metabolic Panel (05/25/2024 6:09 AM EDT) Only the most recent of4 resultswithin the time period is included. Sodium 126(L) 136 - 145 meq/L 05/25/2024 7:04 AM EDT [facility] Potassium 4.3 3.4 - 5.1 meq/L 05/25/2024 7:04 AM EDT [facility] CO2 21(L) 22 - 29 meq/L 05/25/2024 7:04 AM EDT [facility] Chloride 97(L) 98 - 112 meq/L 05/25/2024 7:04 AM EDT [facility] Glucose 90 74 - 100 mg/dL 05/25/2024 7:04 AM EDT [facility] BUN 6.6(L) 7.0 - 18.7 mg/dL 05/25/2024 7:04 AM EDT [facility] Creatinine 0.79 0.57 - 1.11 mg/dL 05/25/2024 7:04 AM EDT [facility] BUN/Creatinine 8 8 - 20 05/25/2024 7:04 AM EDT [facility] Calcium 8.3(L) 8.4 - 10.2 mg/dL 05/25/2024 7:04 AM EDT [facility] Anion Gap 12 4 - 12 05/25/2024 7:04 AM EDT [facility] eGFR (mL/min/1.73m2) 94 >=60 mL/min/1.7 3m2 05/25/2024 7:04 AM EDT [facility] Osmolality Calc 250.7 mOsm/kg 7:04 AM EDT [facility] Blood Venipuncture / Unknown 05/25/2024 6:09 AM EDT 05/25/2024 6:37 AM EDT us Ac Wilks MD LAB BLOOD ORDERABLES Final R esult Performing Organization Address [facility] Co de Phone Number [facility] [address] [phone] * (ABNORMAL) Hemoglobin and hematocrit (05/25/2024 1:24 AM EDT) Hemoglobin 9.7(L) 11.2 - 15.7 GM/DL 05/25/2024 1:39 AM EDT [facility] Hematocrit 28.6(L) 34.1 - 44.9 % 05/25/2024 1:39 AM EDT [facility] Blood Venipuncture / Unknown 05/25/2024 1:24 AM EDT 05/25/2024 1:33 AM EDT us Aristides Pickering PA-C LAB BLOOD ORDERABLES Final Result Performing Organization Address [facility] Co de Phone Number [facility] [address] [phone] * Phosphorus (05/25/2024 1:24 AM EDT) Phosphorus 3.6 2.5 - 4.5 mg/dL 05/25/2024 1:55 AM EDT [facility] Blood Venipuncture / Unknown 05/25/2024 1:24 AM EDT 05/25/2024 1:33 AM EDT us Ac Wilks MD LAB BLOOD ORDERABLES Final R esult Performing Organization Address [facility] Co de Phone Number [facility] [address] [phone] * Transfuse RBC (05/25/2024 12:08 AM EDT) Only the most recent of2 resultswithin the time period is included. us Ac Wilks MD FS_MODEL_IP_BLOOD TRANSFUSIO N [...] IMG CT ORDERABLES Final Resu lt * Prepare RBC: 2 Units (05/24/2024 3:21 PM EDT) Issue Date/Time [id number] [facility] [place] Product Identification Red Blood Cells [facility] [place] Product Code [id number] [facility] [place] Status Information Transfused [facility] [place] Unit Number [id number] [facility] [place]) Blood Type 5100 [facility] [place] Cross Match Results Compatible [facility] [place] Ac Wilks MD FS_MODEL_IP_BLOOD BANK PRODU CT ORDERABLES Final Result [facility] [place] 1 [facility] [place] [id number] [phone] * XR chest AP portable (05/24/2024 1:21 [...] ECG 12 lead (05/24/2024 12:58 AM EDT) Only the most recent of2 resultswithin the time period is included. VENTRICULAR RATE EKG/MIN 63 BPM GE MUSE ATRIAL RATE (MCT) 63 BPM GE MUSE DC Interval 186 ms GE MUSE QRS-INTERVAL (MSEC) 92 ms GE MUSE QT Interval 444 ms GE MUSE QTC Interval 454 ms GE MUSE P [place] 15 degrees GE MUSE R AXIS (MCT) 45 degrees GE MUSE T Wave [place] 35 degrees GE MUSE [place] Diagnosis Normal sinus rhythm Low voltage QRS Borderline ECG Confirmed by Liang Luna ([id number]) on 05/24/2024 1:34:15 PM GE MUSE 05/24/2024 12:5 8 AM EDT 05/24/2024 1:34 PM EDT Aristides Pickering PA-C ECG ORDERABLES Final Resu lt GE MUSE * High Sensitivity Troponin I (05/24/2024 12:54 AM EDT) Troponin I High Sensitivity (pg/mL) <5.0 <=14 pg/mL 05/24/2024 2:15 AM EDT [facility] Blood Venipuncture / Unknown 05/24/2024 12:54 AM EDT 05/24/2024 1:44 AM EDT Narrative [facility] - 05/24/2024 2:15 AM EDT Applicable to [facility] only. Effective April 30 the lab will begin using a new chemistry analyzer. HsTroponin methodology, reference ranges and critical values have changed. Aristides Pickering PA-C LAB BLOOD ORDERABLES Final Result [facility] [address] [phone] * CALCIUM Ionized (05/23/2024 8:31 AM EDT) Calcium Ionized 1.17 1.12 - 1.32 mmol/L 05/23/2024 9:12 AM EDT [facility] Blood Venipuncture / Unknown 05/23/2024 8:31 AM EDT 05/23/2024 9:06 AM EDT Aristides STYLESC LAB BLOOD ORDERABLES Final Result Performing Organization Address [facility]/ZIP Co de Phone Number [facility] [address] [phone] * Magnesium (05/23/2024 8:31 AM EDT) Magnesium 2.2 1.6 - 2.6 mg/dL 05/23/2024 9:32 AM EDT [facility] Blood Venipuncture / Unknown 05/23/2024 8:31 AM EDT 05/23/2024 9:04 AM EDT Aristides Pickering PA-C LAB BLOOD ORDERABLES Final Result [facility] [address] [phone] * Tissue Exam (05/22/2024 4:05 PM EDT) AP RESULT See Note: [facility] Comment: [facility] [address] [place] [address] or [phone] Jose Morgan M.D., Machine Spreader PATIENT NAME LABORATORY NO. 170DEMETRA DE OLIVEIRA [id number] AGE SEX SSN CLIENT REF # [place] [id number] 1980 F [id number] 1 [facility] REQUESTING William [place] [address] HEATH ROBLEDO DATE COLLECTED DATE RECEIVED DATE [...] interpretation rendered by Yaya Patrick M.D.,F.C.A.P. at [facility] [employer], [address] [place] [address]. GROSS DESCRIPTION: Specimen received in formalin labeled [...] other discrete mass lesions are grossly identified. News Cameraman sections are submitted in 2 cassettes with sections including possible skin in A1. JTM/RLL REVIEWED, DIAGNOSED AND ELECTRONICALLY SIGNED BY: Yaya Patrick M.D.,F.C.A.P. CPT CODES: 16102 Tissue COLON STRUCTURE / Unknown 05/22/2024 4:05 PM EDT Heath Robledo MD PATHOLOGY/CYTOLOGY ORDERABLES Fi nal Result [facility] [address] [place] [address] * AN SINGLE LUMEN INTUBATION (05/22/2024 2:25 [...] BILATERAL (BLK RM) (05/22/2024 12:30 PM EDT) Mary Carmen Cantu MD - 05/22/2024 12:30 PM EDT Mary [...] supine Prep: ChloraPrep Patient monitoring: heart rate, user experience manager and continuous pulse ox Block type: TAP [...] Elkins MD ANESTHESIA ORDERABLES F inal Result * Glucose, iSTAT Meter (05/22/2024 11:44 AM EDT) Only the most recent of2 resultswithin the time period is included. POC-GLUCOSE 101 70 - 105 mg/dL 05/23/2024 8:06 AM EDT [facility] Blood 05/22/2024 11:4 4 AM EDT 05/23/2024 8:06 AM EDT [facility] - 05/23/2024 8:06 AM EDT Diesel Technology Instructor ID is - [id number] us Not In System Provider POINT OF CARE TEST ORDERA BLES Final Result Performing Organization Address [facility] Co de Phone Number [facility] [address] [phone] * POC-Potassium (05/22/2024 11:44 AM EDT) Only the most recent of2 resultswithin the time period is included. POC Potassium 3.8 3.5 - 4.9 mmol/L 05/23/2024 8:06 AM EDT [facility] Blood 05/22/2024 11:4 4 AM EDT 05/23/2024 8:06 AM EDT [facility] - 05/23/2024 8:06 AM EDT Diesel Technology Instructor ID is - [id number] us Not In System Provider POINT OF CARE TEST ORDERA BLES Final Result Performing Organization Address City/[facility]/ZIP Co de Phone Number [facility] [address] [place], [place] [address] [phone] * Type and Screen (05/22/2024 11:43 AM EDT) ABO/Rh O Positive 05/22/2024 11:29 AM EDT [facility] ([place] Antibody Screen Negative 05/22/2024 11:29 AM EDT [facility] [place] HISTCHK HIST CHECK PERFORMED 05/22/2024 11:29 AM EDT [facility] [place] Blood Venipuncture / Unknown 05/22/2024 11:43 AM EDT 05/22/2024 11:55 AM EDT Heath Robledo MD [facility] BLOOD BANK TEST ORDERABLES F inal Result [facility] ([place] [address] [phone] * EKG-SCANNED (05/22/2024) Narrative 05/22/2024 Ordered by an unspecified provider. us Default Scanning Provider SCAN ORDERS Final Result * X-ray chest PA and lateral (05/15/2024 10:13 AM EDT) Anatomical Region Laterality Modality Chest X-Ray 05/15/2024 10:4 9 AM EDT Impressions 05/15/2024 10:56 AM EDT No acute cardiopulmonary process. Images reviewed, interpreted, and dictated by Dr. Esperanza Dixon. Transcribed by Deandra Cain PA-C. Narrative 05/15/2024 10:56 AM EDT TWO VIEW CHEST HISTORY: Preoperative cardiopulmonary evaluation, hypertension. COMPARISON: November 2021. FINDINGS: The heart is normal in size. The mediastinum is unremarkable. The lungs are clear. There is no pneumothorax. Procedure Note Callie Dixon MD - 05/15/2024 TWO VIEW CHEST HISTORY: Preoperative cardiopulmonary evaluation, hypertension. COMPARISON: November 2021. FINDINGS: The heart is normal in size. The mediastinum is unremarkable. The lungs are clear. There is no pneumothorax. IMPRESSION: No acute cardiopulmonary process. Images reviewed, interpreted, and dictated by Dr. Esperanza Dixon. Transcribed by Deandra Cain PA-C. Heath Robledo MD IMG DIAGNOSTIC IMAGING ORDERABLE S Final Result * Hemoglobin A1c (05/15/2024 9:39 AM EDT) Hemoglobin A1C 5.4 4.0 - 5.6 % 05/15/2024 10:23 AM EDT [facility] Comment: Hemoglobin A1C levels are related to mean glucose during the preceding 2-3 months. Less than 7% demonstrates glycemic control in diabetic patients. Hemoglobin AlC % Suggested Diagnosis > or = 6.5 Diabetic 5.7 - 6.4 Prediabetic <5.7 Non-diabetic eAVG Glucose 108.28 70 - 126 mg/dL 05/15/2024 10:23 AM EDT [facility] Blood Venipuncture / Unknown 05/15/2024 9:39 AM EDT 05/15/2024 10:11 AM EDT Heath Robledo MD LAB BLOOD ORDERABLES Final Resul t [facility] [address] [phone] from Last 3 Months Insurance [id number] (Home) [address] [phone] [employer] [facility] Advance Directives For more information, please contact: [phone] * Full Code (Latest Code Status on File) Date Activated Date Inactivated Comments 06/04/2024 8:28 PM 06/05/2024 3:41 PM * Full Code Date Activated Date Inactivated Comments 05/22/2024 5:45 PM 05/25/2024 6:01 PM Care Teams Manager Lan Relationship Specialty Start Date End Date Deandra Lopez, TRIAL MGR [address] [place] [address] PCP - General Nurse Practitioner 06/04/24
--- OUTSIDE RECORDS SUMMARY | 2024-07-16 15:12 | XMS_ITS | Clinical Summary ---
Author Organization Healthcare Address [address] [place] [address] Care Team Providers Care Greens Keeper Name Role Phone Deandra Lopez APRN Primary Care Provider [phone] Allergies Active Allergy Reactions Criticality Noted Date Comments Bupropion Dizziness,Hives,Othe r - please document in the comment field,Palpitations,Shortness of breath High 11/14/2019 hypotension Bupropion Hcl Dizziness Low 03/15/2022 Hydroxyzine Unknown - Patient st ates they do not know rxn details Low 03/12/2015 Other Hives High 11/07/2021 Paroxetine Dizziness,Headache,N ausea,Palpi tations,Shortness of breath High 05/17/2022 Prednisolone Itching,Palpitations ,Rash,Short ness of breath High 10/17/2023 Prednisone Itching High 07/21/2015 Pseudoephedrine Other - please docum ent in the comment field Low 11/21/2023 Sumatriptan Other - please docum ent in the comment field,Palpitations High 11/21/2023 Sympathomimetics Other - please docum ent in the comment field,Dizziness,Headache,Hives, Itching,Palpitations,Rash,Short ness of breath,Unknown - Patient states they do not know rxn details High 03/12/2015 Triptans Dizziness,Headache,I tching,Palp itations,Shortness of breath,Unknown - Patient states they do not know rxn details High 03/12/2015 Medications desvenlafaxine (Pristiq) 100 MG 24 hr tablet Take 1 tablet (100 mg) by mouth 1 (one) time each day. Active Rexulti 2 MG tablet tablet Take 1 tablet (2 mg) by mouth 1 (one) time each day. 05/04/19 Active isosorbide mononitrate ER (Imdur) 30 MG 24 hr tablet Take 1 tablet (30 mg) by mouth 1 (one) time each day. 04/26/19 Active lamoTRIgine (LaMICtal) 100 MG tablet Take 1.5 tablets (150 mg) by mouth twice a day. 04/26/19 Active levothyroxine (Synthroid, Levoxyl) 125 MCG tablet Take 1 tablet (125 mcg) by mouth. Active metoprolol succinate XL (Toprol-XL) 50 MG 24 hr tablet Take 1 tablet (50 mg) by mouth twice a day. 03/31/19 Active Myrbetriq 50 MG tablet Take 1 tablet (50 mg) by mouth 1 (one) time each day. 03/28/[address] Active [address] capsule Active prazosin (Minipress) 2 MG capsule Take 3 capsules (6 mg) by mouth nightly. Active estradiol (Estrace) 2 MG tablet Take 1 tablet (2 mg) by mouth daily. Active ALPRAZolam (Xanax) 1 MG tablet Take 1 tablet (1 mg) by mouth 3 times a day. 04/26/19 Active armodafinil (Nuvigil) 200 MG tablet Take 1 tablet (200 mg) by mouth 1 (one) time each day. 09/26/19 Active Icosapent Ethyl (Vascepa) 1 g capsule Icosapent Ethyl 1 GM Oral Capsule QTY: 120 Days: 30 Refills: 0 Written: 04/26/23 Patient Instructions: 04/26/19 Active Erenumab-aooe (AIMOVIG, 140 MG DOSE, SC) Active furosemide (Lasix) 20 MG tablet Active potassium chloride CR (K-Tab) 20 MEQ ER tablet 04/06/19 Active HESPERIDIN-DIOSMI N PO Take by mouth. Activ e atorvastatin (Lipitor) 80 MG tablet Take 1 tablet (80 mg) by mouth daily. Active Rimegepant Sulfate (Nurtec) 75 MG orally disintegrating tablet Take 1 tablet (75 mg) by mouth. Active cyanocobalamin (Vitamin B-12) 500 MCG tablet Take 1 tablet (500 mcg) by mouth daily. 01/04/20 23 Active Dietary Management Product (Vasculera) tablet 09/12/19 24 Active famotidine (Pepcid) 40 MG tablet Take 1 tablet (40 mg) by mouth daily. Active OneTouch Ultra Test test strip USE TO TEST BLOOD SUGAR TWICE DAILY DIRECTED Active triamcinolone (Kenalog) 0.1 % cream APPLY A THIN LAYER TO AFFECTED AREAS TOPICALLY TWICE DAILY FOR 7 DAYS 08/28/19 24 Active Lancets (OneTouch Delica Plus [id number]) [facility] See administration instructions. Active glucose blood test strip USE TO TEST BLOOD SUGAR TWICE DAILY DIRECTED Active amantadine (Symmetrel) 100 MG tablet 02/27/19 25 Active Vraylar 3 MG capsule take one (1) capsule by mouth every morning 04/26/19 24 Active potassium chloride CR (Klor-Con M20) 20 MEQ ER tablet 01/11/20 24 Active ofloxacin (Ocuflox) 0.3 % ophthalmic solution 03/13/19 25 Active sucralfate (Carafate) 1 g tablet Take 1 tablet (1 g) by mouth 4 (four) times a day. 09/25/19 24 Active estradiol (Climara) 0.0375 MG/24HR Place 1 patch on the skin 1 time per week. Active Rexulti 3 MG tablet 06/22/19 25 Active Aimovig 140 MG/ML solution auto-injector INJECT 1 ML SUBCUTANEOUSLY ONCE EVERY MONTH 06/14/19 25 Active estradiol (Climara) 0.1 MG/24HR apply 1 patch topically once a week 06/12/19 25 Active lamoTRIgine (LaMICtal) 150 MG tablet Take 1 tablet by mouth 2 times a day. 06/10/19 25 Active gabapentin (Neurontin) 300 MG capsule Take 1 capsule by mouth nightly. 30 capsule 2 06/22/19 25 025 Active gabapentin (Neurontin) 300 MG capsule Take 1 capsule (300 mg) by mouth nightly. 30 capsule 2 03/26/19 25 025 Disconti nued(Reo rder) Active Problems Problem Noted Date Diagnosed Date Neuropathy 03/26/2024 Cubital tunnel syndrome on right 01/25/2024 Encounters Date Type Department Care Team Description 06/21/2024 2:30 PM EDT Office Visit Interventional Pain Medicine [address] [place] [address] Kishor Mcdonald MD Neuropathy (Primary Dx); Cubital tunnel syndrome on right 06/21/2024 Travel 06/13/2024 8:17 PM EDT - 06/13/2024 10:51 PM EDT [facility] [address] [place] [address] Stephane Ely MD Abdominal wall seroma, initial encounter (Primary Dx) Discharge Disposition: Home or Self Care 06/13/2024 Travel from Last 3 Months Immunizations Immunization Administration Dates Next Due Moderna COVID-19 Vaccine Bivalent 6months+ 10/20 Family History Medical History Relation Name Comments Diabetes Father Lenny Diaz Osteoporosis Maternal Grandmother dAia Singh Anesthesia problems Mother Doris Diaz Diabetes Mother Doris Diaz Heart attack Mother Doris Diaz Osteoporosis Mother Doris Diaz Cardiac disorder Other 1 Stroke Other 2 Other cancer Other 3 Osteoarthritis Other 4 Hyperlipidemia Other 5 Hyperlipidemia Other 6 Conversions - Other Other 7 History of open heart surgery Conversions - Other Other 8 History of open heart surgery Conversions - Other Other 9 History of open heart surgery Cancer Paternal Grandfather Dustin Diaz Hyperlipidemia Sister Relation Name Status Comments Father Lenny Diaz Maternal Grandmother Adia Singh Mother Doris Diaz Other 1 Other 2 Other 3 Other 4 Other 5 Other 6 Other 7 Other 8 Other 9 Paternal Grandfather Dustinkathie Diaz Sister Social History Tobacco Use Types Packs/Day Years Used Date Smoking Tobacco: Former Cigarettes Q uit: 11/06/2021 Smokeless Tobacco: Never Tobacco Cessation:Counseling Given: Not Answered Comments:Quit Alcohol Use Standard Drinks/Week Comments Never [...] Orientation Straight 06/20/2022 11 :45 AM EDT Last Filed Vital Signs Vital Sign Reading [...] Mass Index 30.93 06/21/2024 1:51 PM EDT Plan of Treatment Upcoming Encounters Date Type Department Care Team (Late st Contact Info) Description 09/24/2024 10:30 AM EDT Office Visit Interventional Pain Medicine [address] [place] [address] Kishor Mcdonald MD [address] [place] [address] Health Maintenance Due Date Last Done Comments [facility]-HIV Screening 1979 [facility]-Hepatitis C Screening 1979 [facility]-Infant/Child/Adol SDOH Screenings 1979 [facility]-Varicella Vaccines (1 of 2 - 13+ 2-dose series) 02/13/1992 HPV Vaccines (1 - 3-dose series) 1994 [facility]- SDOH Screenings 1997 [facility]-Adult SDOH Screenings 1997 [facility]-DTaP,Tdap,and Td Vaccines (3 - Td or Tdap) 01/06/2018 01/07/2008, 09/21/1995 [id number] Vaccine ( season) 2023 10/20/2021, 04/20/2021, 11/27/2020, Additional history exists [facility]-Influenza Vaccine (Season Ended) 2024 09/30/2021, 10/21/2020, 10/07/2019, Additional history exists [facility]-Depression Screening 01/15/2025 01/16/2024, 01/06 [facility]-Zoster Vaccines (1 of 2) 2029 [facility]-Hepatitis A Vaccines Aged Out 02/11/2008 No longer eligible based on patient's age to complete this topic [facility]-Hepatitis B Vaccines Completed 009, 02/11/2008, 01/07/2008 [facility]-Obesity Intervention Completed 025, 03/26/2024, 03/26/2024, Additional history exists [facility]-HIB Vaccines Aged Out No longer e ligible based on patient's age to complete this topic [facility]-IPV Vaccines Aged Out No longer e ligible based on patient's age to complete this topic [facility]-Pneumococcal Vaccine: Pediatrics (0 to 5 Years) and At-Risk Patients (6 to 49 Years) Aged Out No longer eligible based on patient's age to complete this topic [facility]-Rotavirus Vaccines Aged Out No lo nger eligible based on patient's age to complete this topic Procedures Procedure Name Priority Date/Time Associated Diagnosis Comments C-REACTIVE PROTEIN, PLASMA STAT 06/13/2024 8:16 PM EDT CBC WITH AUTO DIFFERENTIAL STAT 06/13/2024 8:16 PM EDT COMPREHENSIVE METABOLIC PANEL, PLASMA STAT 06/13/2024 8:16 PM EDT from Last 3 Months Results * (ABNORMAL) CBC w/diff (06/13/2024 8:16 PM EDT) Pathologist [facility] WBC Count 6.96 3.70 - 10.30 10*3/uL LAB HEMATOLOGY METHOD 06/13/2024 8:21 PM EDT [facility] RBC Count 4.01 3.90 - 5.20 10*6/uL LAB HEMATOLOGY METHOD 06/13/2024 8:21 PM EDT [facility] HGB 11.4 11.2 - 15.7 g/dL LAB HEMATOLOGY METHOD 06/13/2024 8:21 PM EDT [facility] HCT 34.1 34.0 - 45.0 % LAB HEMATOLOGY METHOD 06/13/2024 8:21 PM EDT [facility] Platelet Count 318 155 - 369 10*3/uL LAB HEMATOLOGY METHOD 06/13/2024 8:21 PM EDT [facility] MCV 85 79 - 98 fL LAB HEMATOLOGY METHOD 06/13/2024 8:21 PM EDT [facility] MCH 28.4 26.0 - 32.0 pg LAB HEMATOLOGY METHOD 06/13/2024 8:21 PM EDT [facility] MCHC 33.4 30.7 - 35.5 g/dL LAB HEMATOLOGY METHOD 06/13/2024 8:21 PM EDT [facility] RDW 13.2 11.5 - 14.5 % LAB HEMATOLOGY METHOD 06/13/2024 8:21 PM EDT [facility] MPV 7.9(L) 8.8 - 12.5 fL LAB HEMATOLOGY METHOD 06/13/2024 8:21 PM EDT [facility] nRBC 0.0 <=0.0 per 100 WBCs LAB HEMATOLOGY METHOD 06/13/2024 8:21 PM EDT [facility] Differential Type Automated LAB HEMATOLOGY METHOD 06/13/2024 8:21 PM EDT [facility] Neutrophils % 64 % LAB HEMATOLOGY METHOD 06/13/2024 8:21 PM EDT [facility] Lymphocytes % 26 % LAB HEMATOLOGY METHOD 06/13/2024 8:21 PM EDT [facility] Monocytes % 6 % LAB HEMATOLOGY METHOD 06/13/2024 8:21 PM EDT [facility] Eosinophils % 3 % LAB HEMATOLOGY METHOD 06/13/2024 8:21 PM EDT [facility] Basophils % 1 % LAB HEMATOLOGY METHOD 06/13/2024 8:21 PM EDT [facility] Immature Granulocytes % 0 % LAB HEMATOLOGY METHOD 06/13/2024 8:21 PM EDT [facility] Neutrophils Absolute 4.48 1.60 - 6.10 10*3/uL LAB HEMATOLOGY METHOD 06/13/2024 8:21 PM EDT [facility] Lymphocytes Absolute 1.79 1.20 - 3.90 10*3/uL LAB HEMATOLOGY METHOD 06/13/2024 8:21 PM EDT [facility] Monocytes Absolute 0.44 0.30 - 0.90 10*3/uL LAB HEMATOLOGY METHOD 06/13/2024 8:21 PM EDT [facility] Eosinophils Absolute 0.18 0.00 - 0.50 10*3/uL LAB HEMATOLOGY METHOD 06/13/2024 8:21 PM EDT [facility] Basophils Absolute 0.05 0.00 - 0.10 10*3/uL LAB HEMATOLOGY METHOD 06/13/2024 8:21 PM EDT [facility] Immature Granulocytes Absolute 0.02 0.00 - 0.06 10*3/uL LAB HEMATOLOGY METHOD 06/13/2024 8:21 PM EDT [facility] Blood Venous blood specimen / Unknown Venipuncture / Unknown 06/13/2024 8:16 PM EDT 06/13/2024 8:19 PM EDT Narrative [facility] - 06/13/2024 8:21 PM EDT Therapeutic decision making should be based on absolute values, rather than percentages. us Rosa Meyer MD LAB BLOOD ORDERABLES Final Re sult Performing Organization Address [facility]/ZIP Co de Phone Number [facility] [address] [place] [address] * C-Reactive protein (06/13/2024 8:16 PM EDT) CRP, Plasma <3.0 <=8.0 mg/L 06/13/2024 8:40 PM EDT [facility] Blood Venous blood specimen / Unknown Venipuncture / Unknown 06/13/2024 8:16 PM EDT 06/13/2024 8:19 PM EDT Narrative [facility] - 06/13/2024 8:40 PM EDT This CRP test is appropriate for assessment of infection, systemic inflammation and/or tissue injury. To assess cardiovascular disease risk order high sensitivity CRP (CRPH). us Rosa Meyer MD LAB BLOOD ORDERABLES Final Re sult Performing Organization Address City/[facility]/ZIP Co de Phone Number [facility] [address] [place] [address] * (ABNORMAL) CMP (06/13/2024 8:16 PM EDT) [facility] Glucose, Plasma 83 74 - 99 mg/dL 06/13/2024 8:40 PM EDT [facility] BUN, Plasma 5(L) 7 - 21 mg/dL 06/13/2024 8:40 PM EDT [facility] Creatinine, Plasma 0.70 0.60 - 1.10 mg/dL 06/13/2024 8:40 PM EDT [facility] BUN/Creatinine Ratio 7 06/13/2024 8:40 PM EDT [facility] Sodium, Plasma 135(L) 136 - 145 mmol/L 06/13/2024 8:40 PM EDT [facility] Potassium, Plasma 3.8 3.6 - 4.9 mmol/L 06/13/2024 8:40 PM EDT [facility] Chloride, Plasma 97 97 - 107 mmol/L 06/13/2024 8:40 PM EDT [facility] CO2, Plasma 24 22 - 29 mmol/L 06/13/2024 8:40 PM EDT [facility] Anion Gap 14 6 - 16 mmol/L 06/13/2024 8:40 PM EDT [facility] Total Calcium, Plasma 9.2 8.9 - 10.2 mg/dL 06/13/2024 8:40 PM EDT [facility] Total Protein 7.5 6.3 - 7.9 g/dL 06/13/2024 8:40 PM EDT [facility] Albumin, Plasma 4.7 3.5 - 5.2 g/dL 06/13/2024 8:40 PM EDT [facility] AST, Plasma 24 10 - 35 U/L 06/13/2024 8:40 PM EDT [facility] ALT, Plasma 20 10 - 35 U/L 06/13/2024 8:40 PM EDT [facility] Alkaline Phosphatase, Plasma 172(H) 35 - 104 U/L 06/13/2024 8:40 PM EDT [facility] Total Bilirubin, Plasma <0.2(L) 0.2 - 1.1 mg/dL 06/13/2024 8:40 PM EDT [facility] eGFRcr 108.8 mL/min/1.7 3m*2 06/13/2024 8:40 PM EDT [facility] Comment:Reported eGFRcr in m L/min/1.73m2 is based the CKD-EPI 2020 equation that does not use a race coefficient. Blood Venous blood specimen / Unknown Venipuncture / Unknown 06/13/2024 8:16 PM EDT 06/13/2024 8:19 PM EDT us Rosa Meyer MD LAB BLOOD ORDERABLES Final Re sult [facility] [address] [place] [address] from Last 3 Months Insurance [employer] [facility] MEDICAID Care Teams Greens Keeper Relationship Specialty Start Date End Date Deandra Lopez APRN [address] [place] [address] PCP - General 10/18/23
--- OUTSIDE RECORDS SUMMARY | 2024-07-16 15:12 | XMS_ITS | Encounter Summary ---
Author Organization [facility] Address [address] [place] [address] Care Team Providers Care Engineering Program Analyst Name Role Phone Deandra Lopez APRN Primary Care Provider [phone]- [phone] Deandra Lopez APRN Primary Care Provider [phone]- [phone] Encounter Details Date Type Department Care Team (Late st Contact Info) Description 08/22/2021 Transcribed Document [facility] [place] [address] ProviderElaine MD [address], [place] [id number] Social History Tobacco Use Types Packs/Day Years [...] Conversion Note - Historical ProviderMD - 08/22/2021 12:05 PM CDT Patient: DEMETRA MARTINEZ Age: 41 years Sex: Female : 1980 Associated Diagnoses: None Author: TERESA ALEXANDER MD-INF ID Consultation/Initial Referring Provider: Dr Abhijeet Tejeda MD: Teresa Alexander MD Admit Date 08/20/2021 23:54 Date of consultation: 08/22/21 I was not notified of this consult until 08/21 at 12:46 PM by the community integration specialist. Reason for consultation: abdominal abscess CC: abdominal pain HPI: 41-year-old female with a history of colonic inertia followed by . Also history of bipolar disorder, type 2 diabetes, obesity, irritable bowel syndrome and GERD. 2 weeks prior to admission she underwent subtotal colectomy and ileorectal anastomosis by Dr. Diaz. Apparently she had poor colon prep prior to surgery. Did well immediately postop but came back to office on the day of admission with fever up to 102. CT scan done at [facility] with evidence of intra-abdominal abscess. WBC 13,000. Transferred to [facility] for IR evaluation. On 08/21 she underwent IR guided aspiration of abdominal abscess. 10 mL of purulent fluid was obtained and 2 drains placed. Cultures pending with GPC on gram stain. Started on Zosyn and infectious disease consulted 08/22/2021: Afebrile overnight. Stable. Tolerating Zosyn. Abdominal pain much improved after drain placement ROS: See above. otherwise 12 point ROS negative. AllergiesAllergies (5) Active Reaction Imitrex rapid heart rate oral steroids skin rash predniSONE Hives to oral prednisone pseudoephedrine-triprolidine dizziness Sudafed rapid heart rate, dizziness Medications by Classification Antimicrobials piperacillin-tazobactam + Sodium Chloride 0.9% intravenous s - 3.375 Gram, IV Piggyback, Inj, Q6HInt, infuse over 3 Hour(s) Anticoagulant heparin - 5,000 Units, SubCutaneous, Inj, Q8HInt, Routine Cardiovascular prazosin - 2 mg, Oral, Cap, QAM, Routine prazosin - 8 mg, Oral, Cap, At Bedtime, Routine atorvastatin (Lipitor) - 80 mg, Oral, Tab, At Bedtime, Routine GI pantoprazole (Protonix) - 40 mg, Oral, EC Tab, Daily mirabegron (Myrbetriq) - 50 mg, Oral, ER Tab, Daily, Routine Endocrine insulin lispro (insulin lispro 76 kg - 100 kg) - 76 kg - 100 kg scale, SubCutaneous, Inj, AC and at Bedtime, NOW glucose (Dextrose 50% injection) - 25 Gram, IV Push, Inj, Q15Min, PRN for Other (See Comment), Routine glucose (Dextrose 50% injection) - 25 Gram, IV Push, Inj, Q15Min, PRN for Other (See Comment), Routine glucose (Dextrose 50% injection) - 25 Gram, IV Push, Inj, Q15Min, PRN for Other (See Comment), Routine glucose (Dextrose 50% injection) - 12.5 Gram, IV Push, Inj, Q15Min, PRN for Other (See Comment), Routine glucose (glucose 4 g oral tablet, chewable) - 16 Gram, 4 Tab, Chew, Tab, Q15Min, PRN for Other (See Comment), Routine glucose (glucose 40% oral gel) - 15 Gram 37.5 mL, Oral, Gel, Q15Min, PRN for Other (See Comment), Routine levothyroxine - 125 mcg, Oral, Tab, Daily, Routine estradiol - 2 mg, Oral, Tab, Daily, Routine Neuro lamoTRIgine - 100 mg, Oral, Tab, BID, Routine Psych desvenlafaxine (Pristiq) - 100 mg, Oral, ER Tab, Daily, Routine cariprazine (Vraylar) - 3 mg, Oral, Cap, Daily, Routine modafinil (Provigil) - 200 mg, Oral, Tab, QAM, Routine Pain Meds acetaminophen-hydrocodone ([place] 5 mg-325 mg oral tablet) - 1 Tab, Oral, Tab, Q6H, PRN for Pain (Moderate 4-6), Routine acetaminophen - 650 mg, Oral, Tab, Q6H, PRN for Pain (Mild 1-3), Routine Sedatives ALPRAZolam (Xanax) - 1 mg, Oral, Tab, TID, Routine busPIRone (BuSpar) - 10 mg, Oral, Tab, TID, Routine Undefined Medications glucagon - 1 mg, IntraMuscular, Inj, Q15Min, PRN for Other (See Comment), Routine Past Medical History: Angina Anxiety / depression / Bipolar / PTSD Back pain Bladder spasms Cardiac arrhythmia Chronic idiopathic constipation Diabetes mellitus type II Fast heart beat GERD - Gastro-esophageal reflux disease Hyperlipidemia Irritable bowel syndrome Narcolepsy BETTY (obstructive sleep apnea) Thyroid disease Past Surgical History: Subtotal colectomy in July 2021 Family History: Reviewed with patient and non-contributory towards current admission. Social History:Social & Psychosocial Habits Alcohol 07/27/2021 Alcohol Use History, Social Habits No Substance Abuse 07/27/2021 Recreational Drug Use History No Recreational Drug Use Last 12 Months Yes Recreational Drug Type THC vape pen Recreational Drug Use Frequency Socially Recreational Drug Last Used uses every couple weeks for anxiety Tobacco 07/27/2021 Smoking Status 5-9 cigarettes (between 1 Smokeless Tobacco Status Never Years of Tobacco Use 20 Packs/Tins Daily 0.3 Month Tobacco Last Used July 2021 Physical Examination:Vitals Signs (last 24 hrs) Last Charted Minimum Maximum Temp 97.8 (AUG 22 06:02) 97.8 (AUG 22 06:02) 98.6 (AUG 21 13:00) Mon HR 83 (AUG 22 06:02) 83 (AUG 22 02:26) 102 (AUG 21 13:00) Resp Rate 16 (AUG 22 06:02) 15 (AUG 22 02:26) 20 (AUG 21 13:00) SBP 93 (AUG 22 06:02) 93 (AUG 21 21:46) 110 (AUG 21 13:00) DBP L 51 (AUG 22 06:02) L 51 (AUG 21 21:46) 65 (AUG 21 13:00) MAP 64 (AUG 22 06:02) 62 (AUG 21 21:46) 67 (AUG 21 18:00) SpO2 L 93 (AUG 22 06:02) L 93 (AUG 22 00:00) 96 (AUG 21 18:00) General: Awake, no acute distress. non-toxic Eye: EOMI, normal conjunctiva HENT: moist oral mucosa Lungs: Clear to auscultation bilaterally, non-labored respiration Heart: Normal rate, regular rhythm, no murmur appreciated Abdomen: Obese. Soft. Surgical incision dressed. 2 drains with purulent output Musculoskeletal: No major joint swelling Skin: Skin is warm, dry, no rashes or lesions Neurologic: Alert, and oriented X3, no gross focal motor deficits Psychiatric: Cooperative, appropriate mood and affect PIV Labs:Labs (Last four charted values) WBC 8.9 (AUG 22) H 11.7 (AUG 21) HB L 8.5 (AUG 22) L 9.0 (AUG 21) HCT L 26.7 (AUG 22) L 27.3 (AUG 21) Plt H 427 (AUG 22) H 479 (AUG 21) Na L 134 (AUG 22) L 135 (AUG 21) L 133 (AUG 21) L 132 (AUG 21) K L 2.9 (AUG 22) L 3.0 (AUG 21) L 2.9 (AUG 21) L 3.3 (AUG 21) Cl L 101 (AUG 22) L 99 (AUG 21) L 97 (AUG 21) L 96 (AUG 21) CO2 26 (AUG 22) 27 (AUG 21) 26 (AUG 21) 27 (AUG 21) BUN L 4 (AUG 22) L 4 (AUG 21) L 4 (AUG 16) L 4 (AUG 21) Cr 0.60 (AUG 22) 0.80 (AUG 21) 0.80 (AUG 21) 0.90 (AUG 21) Glu R 98 (AUG 22) H 113 (AUG 21) H 127 (AUG 21) H 134 (AUG 21) Ca L 7.8 (AUG 22) L 8.0 (AUG 21) L 8.0 (AUG 21) L 8.2 (AUG 21) AST H 45 (AUG 21) ALT 26 (AUG 21) ALK P H 223 (AUG 21) T Bili 0.5 (AUG 21) PTN 6.8 (AUG 21) ALB L 2.0 (AUG 21) Creatinine Clearance (Current Encounter/Past 24 Hours) Creatinine Level 0.60 mg/dL 08/22/2021 06:14 Bun/Creatinine 6.7 LOW 08/22/2021 06:14 Estimated Creatinine Clearance 109.91 mL/Min 08/22/2021 06:14 Microbiology: 08/21 blood cultures pending thus far negative 08/21 abdominal abscess drain cultures with GPC on gram stain, culture pending Radiology: Radiology Results (Last 48 hours) [id number] -- 08/20/2021 23:54 CT Drainage Peritoneal (08/21/2021 13:35) Result: CT GUIDED DRAIN PLACEMENTHISTORY: Right abdominal fluid collection.ATTENDING PHYSICIAN: Dr. Berger FLEXOGRAPHIC PRINTING PRESS OPERATOR: MICHELLE Espinal-CPROCEDURE: After informed consent was obtained and a timeout wasperformed, the patient was prepped and draped in usual sterile fashionover the right abdomen. Utilizing local anesthesia and sterile techniquewith a catheter access needle, access to the fluid collection wasobtained. An Amplatz wire was placed. Serial dilatation was performed. A10 Slovenian pigtail catheter was placed, looped within the fluidcollection. Post placement films demonstrate the pigtail catheter ingood position. The patient received mild procedural sedation. 10 mL ofpurulent fluid was removed and sent for cultures. The patient toleratedthe procedure well and left the department in good condition.PROCEDURAL SEDATION: 2 mg of IV Versed and 50 mcg of Fentanyl wereadministered. Continuous vital sign monitoring was used. An RN waspresent during the sedation process. Overall sedation time was 15minutes.IMPRESSION: Status post CT guided percutaneous right abdominal pigtaildrain placement without immediate complication. Images reviewed, interpreted, and dictated by Dr. Yaya Augustine.Transcribed by Rena Pineda PA-C.I have personally viewed, interpreted and dictated the examination. Ihave read and agree with the above final transcribed report. CT Drainage Peritoneal (08/21/2021 13:36) Result: CT GUIDED DRAIN PLACEMENTHISTORY: Left abdominal fluid collection.ATTENDING PHYSICIAN: Dr. Berger FLEXOGRAPHIC PRINTING PRESS OPERATOR: JENSEN EspinalCPROCEDURE: After informed consent was obtained and a timeout wasperformed, the patient was prepped and draped in usual sterile fashionover the left abdomen. Utilizing local anesthesia and sterile techniquewith a catheter access needle, access to the fluid collection wasobtained. An Amplatz wire was placed. Serial dilatation was performed. A10 Slovenian pigtail catheter was placed, looped within the fluidcollection. Post placement films demonstrate the pigtail catheter ingood position. The patient received mild procedural sedation. 10 mL ofpurulent fluid was removed and sent for cultures. The patient toleratedthe procedure well and left the department in good condition.PROCEDURAL SEDATION: 0 mg of IV Versed and 50 mcg of Fentanyl wereadministered. Continuous vital sign monitoring was used. An RN waspresent during the sedation process. Overall sedation time was 15minutes.IMPRESSION: Status post CT guided percutaneous left abdominal pigtaildrain placement without immediate complication. Images reviewed, interpreted, and dictated by Dr. Yaya Augustine.Transcribed by Rena Pineda PA-C.I have personally viewed, interpreted and dictated the examination. Ihave read and agree with the above final transcribed report. I personally reviewed the above CT ABD: drain in place in abdominal fluid collection IMPRESSION: - Intra-abdominal abscess: Complication of recent subtotal colectomy. Status post IR guided drainage on 08/21. GPC on gram stain, culture pending. Clinically improved after drainage - Neutrophilic leukocytosis: Related to above. Improved - Recent subtotal colectomy with ileorectal anastomosis by Dr. Diaz -History of colonic inertia - GERD - IBS - Obesity - Bipolar disorder - Type 2 diabetes RECOMMENDATIONS/PLANS: - Microbiology data reviewed. Follow-up pending blood cultures and drain culture - Follow CBC, CMP, CRP - Continue empiric IV Zosyn for now. Will follow-up pending culture results and tailor therapy as needed - Probiotic while on antibiotics Discussed with Dr Jha. I will follow. a Electronically signed by Ganesh Higginbotham Conversion Shift Production Supervisor Cerner at 05/27/2022 4:38 PM CDT documented in this encounter Plan of Treatment Upcoming Encounters Date Type Department Care Team (Late st Contact Info) Description 07/17/2024 11:00 AM EDT Appointment [facility] [address] [place] [id number] 08/28/2024 9:15 AM EDT Office Visit [facility] Urology - [address] [place] [address] Chandrika Santana, KRISTYN [address] [place] [address] 04/17/2025 8:30 AM EDT Office Visit [facility] Cardiology - [place] [address] [place] [address] Tamara Sow PA-C [address] [facility] [address] [place] [address] documented as of this encounter Visit Diagnoses Not on filedocumented in this encounter Care Teams Engineering Program Analyst Relationship Specialty Start Date End Date Deandra Lopez APRN PCP - General Nurse Practitioner 04/18/22 06/03/24 Deandra Lopez, HIMS MANAGER [address] [place] [address] PCP - General Nurse Practitioner 06/04/24 documented as of this encounter
--- OUTSIDE RECORDS SUMMARY | 2024-07-16 15:12 | XMS_ITS | Encounter Summary ---
Author Organization Healthcare Address [address] [place] [address] Care Team Providers Care Environmental Protection Forester Name Role Phone JohnDeandra Jeb SIMONS Primary Care Provider +1- [phone] Encounter Details Date Type Department Care Team (Latest Contact Info) Description 06/21/2024 Travel Social History Tobacco Use Types Packs/Day Years [...] AM EDT documented as of this encounter Plan of Treatment Upcoming Encounters Date Type Department Care Team (Late st Contact Info) Description 09/24/2024 10:30 AM EDT Office Visit Interventional Pain Medicine [address] [place] [address] Kishor Mcdonald MD [address] [place] [address] documented as of this encounter Visit Diagnoses Not on filedocumented in this encounter Additional Health Concerns Assessment Noted Time PHQ-9 Depression Total Score: 0 01/16/20 24 9:43 AM EST A fall risk assessment has been complete d for the patient 06/21/2024 1:51 PM EDT A Body Mass Index follow-up plan has been documented for the patient 06/21/2024 2:27 PM EDT documented as of this encounter Care Teams Environmental Protection Forester Relationship Specialty Start Date End Date Deandra Lopez APRN [address] [place] [address] PCP - General 10/18/23 documented as of this encounter
--- OUTSIDE RECORDS SUMMARY | 2024-07-16 15:12 | XMS_ITS | Referral Summary ---
Author Organization [facility] In iatives Address [address] [place] [address] Care Team Providers Care Program Director/Music Director Name Role Phone Deandra Lopez APRN Primary Care Provider [phone] Encounters Date Type Department Care Team Description 07/11/2024 Travel 07/11/2024 2:15 PM EDT Office Visit [facility] Urology - [address] [place] [address] Chandrika Santana APRN Bladder pain (Primary Dx) 07/04/2024 Outside Orders [facility] Urology - [address] [place] [address] Heath Robledo MD Bladder retention (Primary Dx) 07/04/2024 Travel 07/04/2024 9:48 AM EDT - 07/04/2024 11:59 PM EDT Hospital Encounter [facility] Ostomy Therapy [address] [place] [address] Discharge Disposition: Home or Self Care 06/21/2024 Travel 06/21/2024 10:32 AM EDT - 06/21/2024 11:59 PM EDT Hospital Encounter [facility] [address] [place] [address] Discharge Disposition: Home or Self Care 06/04/2024 6:26 PM EDT - 06/05/2024 2:41 PM EDT Hospital Encounter [facility] Emergency Department [address] [place] [address] Mekhi Santana DO Tovar, Jesus V, MD Farooqui, Jamil, MD Abdominal pain (Primary Dx); Abdominal wall seroma, initial encounter; Hyponatremia; Abdominal pain, unspecified abdominal location Discharge Disposition: Home or Self Care 06/04/2024 Travel 05/28/2024 Travel 05/28/2024 11:00 AM EDT - 05/28/2024 11:59 PM EDT Hospital Encounter [facility] [address] [place] [address] Discharge Disposition: Home or Self Care 05/22/2024 10:39 AM EDT - 05/25/2024 5:00 PM EDT Hospital Encounter [facility] [address] [place] [address] Heath Robledo MD Farran, Michael D, PA-C Evans, Sophia, PA-C Huffman, Joshua B, MD Elbita, Omar, MD Abnormal defecation Discharge Disposition: Home or Self Care 05/22/2024 Travel 05/22/2024 1:28 PM EDT - 05/22/2024 3:50 PM EDT Surgery [facility] Operating Room [address] [place] [address] Heath Robledo MD (EXPLORATORY LAPAROTOMY WITH CREATION OF END ILEOSTOMY) 05/22/2024 2:18 PM EDT Anesthesia Event [facility] Operating Room [address] [place] [address] Janusz Benito MD Cornea, Mihaela, MD 05/15/2024 10:05 AM EDT - 05/15/2024 11:59 PM EDT Hospital Encounter [facility] Diagnostic Imaging [address] [place] [address] Heath Robledo MD Preop testing Discharge Disposition: Home or Self Care 05/15/2024 Travel 05/15/2024 7:57 AM EDT - 05/15/2024 8:46 AM EDT Hospital Encounter [facility] [address] [place] [address] Discharge Disposition: Home or Self Care 05/15/2024 8:47 AM EDT - 05/15/2024 10:04 AM EDT Hospital Encounter [facility] Preadmission Testing [address] [place] [address] Heath Robledo MD Preop testing (Primary Dx) Discharge Disposition: Home or Self Care 05/07/2024 Travel 05/07/2024 12:41 PM EDT - 05/07/2024 11:59 PM EDT Hospital Encounter [facility] [address] [place] [address] Discharge Disposition: Home or Self Care 05/01/2024 Travel 05/01/2024 11:00 AM EDT - 05/01/2024 11:59 PM EDT Hospital Encounter [facility] [address] [place] [address] Discharge Disposition: Home or Self Care 04/16/2024 9:15 AM EDT Office Visit [facility] Cardiology - [address] [place] [address] Tamara Sow PA-C Hypertension, unspecified type (Primary Dx); Chronic chest pain from Last 3 Months Allergies Active Allergy Reactions Criticality Noted Date [...] (post-traumatic stress disorder) Tachycardia Vitamin D deficiency Social History Tobacco Use Types Packs/Day Years [...] living situation today? I have a [facility] place to live 05/22/2024 Think about [...] Do you speak a language other than [place] at [facility]? No 05/22/2024 Do you want help with [...] Info) Description 07/17/2024 11:00 AM EDT Appointment [facility] [address] [place] [address] 08/28/2024 9:15 AM EDT Office Visit [facility] Urology - [address] [place] [address] ShaneliviaChandrika, PILE TRIMMER [address] [place] [address] 04/17/2025 8:30 AM EDT Office Visit [facility] Cardiology - [place] [address] [place] [address] Tamara Sow PA-C [address] [facility] [address] [place] [address] Procedures Procedure Name Priority Date/Time Associated Diagnosis [...] 05/23/2024 12:4 0 AM EDT TISSUE EXAM [facility] AP Routine 05/22/2024 4:05 PM EDT Abnormal defecation ANESTHESIA INTUBATION Routine 05/22/2024 2:25 PM EDT AR EXPLORATORY LAPAROTOMY CELIOTOMY W/WO BIOPSY SPX 05/22/2024 [...] Negative Ketones Urine, POC Negative Negative Specific [place] Urine, POC 1.020 SG Ratio 1.005 SG [...] due to the potential of erroneous results. Punch Finisher [phone] 06/05/2024 2:07 PM EDT [facility] Blood WHOLE BLOOD / Unknown 06/05/2024 2:05 PM EDT 06/05/2024 2:07 PM EDT Narrative [facility] - 06/05/2024 2:07 PM EDT Punch Finisher ID is - [id number] us Owen Tellez MD POINT OF CARE TEST ORDERABLES Final Result [facility] [address] [phone] * (ABNORMAL) CBC - Hemogram (SJ-BKR) (06/05/2024 [...] Res ult [facility] [address] [phone] * (ABNORMAL) Comprehensive Metabolic Panel (06/05/2024 3:27 AM EDT) Only the most recent of3 resultswithin the time period is included. Sodium 132(L) 136 - 145 meq/L 06/05/2024 3:56 AM [facility] Potassium 3.5 3.4 - 5.1 meq/L 06/05/2024 3:56 AM [facility] Chloride 101 98 - 112 meq/L 06/05/2024 3:56 AM [facility] CO2 26 22 - 29 meq/L 06/05/2024 3:56 AM [facility] Calcium 8.4 8.4 - 10.2 mg/dL 06/05/2024 3:56 AM [facility] Glucose 91 74 - 100 mg/dL 06/05/2024 3:56 AM [facility] BUN 3.3(L) 7.0 - 18.7 mg/dL 06/05/2024 3:56 AM [facility] Creatinine 0.69 0.57 - 1.11 mg/dL 06/05/2024 3:56 AM [facility] BUN/Creatinine 5(L) 8 - 20 06/05/2024 3:56 AM [facility] eGFR (mL/min/1.73m2) 109 >=60 mL/min/1. 73m2 06/05/2024 3:56 AM [facility] Albumin 3.3(L) 3.5 - 5.0 g/dL 06/05/2024 3:56 AM [facility] Alkaline Phosphatase 166(H) 40 - 150 U/L 06/05/2024 3:56 AM [facility] ALT 20 <=34 U/L 06/05/2024 3:56 AM [facility] Comment: ALT2 reagent used for testing does not contain P5P supplementation and therefore may miss ALT elevations in patients with B6 deficiency. This population may be as high as 10% in the [place], with risk factors including malabsorption, drug interactions, and alcoholic hepatitis. AST 19 11 - 34 U/L 06/05/2024 3:56 AM [facility] Comment: AST2 reagent used for testing does not contain P5P supplementation and therefore may miss AST elevations in patients with B6 deficiency. This population may be as high as 10% in the [place], with risk factors including malabsorption, drug interactions, and alcoholic hepatitis. Total Bilirubin 0.5 0.2 - 1.2 mg/dL 06/05/2024 3:56 AM EDT [facility] Protein, Total 6.5 6.4 - 8.3 g/dL 06/05/2024 3:56 AM EDT [facility] Globulin 3.2 2.5 - 4.1 g/dL 06/05/2024 3:56 AM EDT [facility] Anion Gap 9 4 - 12 06/05/2024 3:56 AM EDT [facility] A/G Ratio 1.0 0.7 - 1.9 06/05/2024 3:56 AM EDT [facility] Osmolality Calc 260.8 mOsm/kg 3:56 AM EDT [facility] Blood Venipuncture / Unknown 06/05/2024 3:27 AM EDT 06/05/2024 3:29 AM EDT us Selvin Hernandez MD LAB BLOOD ORDERABLES Final Res ult Performing Organization Address [facility] Co de Phone Number [facility] [address] [place] [address] * Blood Culture (06/04/2024 9:26 PM EDT) [...] MICROBIOLOGY - GENERAL ORDERAB LES Final Result [facility] 1 [place] [address], [facility] [phone] * CT ABDOMEN/PELVIS WITH IV CONTRAST (06/04/2024 [...] Dr. John Edouard. Transcribed by Terrance Ascencio. Kaylatoni Marie KRISTYN IM CT ORDERABLES Final Resul t * Urinalysis, Reflex Microscopic and Culture If Indicated (06/04/2024 7:03 PM EDT) Color, UA Colorless 06/04/2024 7:08 PM EDT [facility] Clarity, UA Clear Clear 06/04/2024 7:08 PM EDT [facility] Specific [place], UA 1.006 1.005 - 1.030 06/04/2024 7:08 [...] 06/04/2024 7:03 PM EDT us Kayla Marie PILE TRIMMER URINE ORDERABLES Final Result [facility] 1 [place] [address], [facility] [phone] * (ABNORMAL) CBC with Auto Diff (06/04/2024 [...] Re sult [facility] [address] [phone] * Lactic Acid with reflex (SJ) (06/04/2024 6:31 PM EDT) [facility] Lactic Acid Level (mmol/L) 1.0 0.5 - 2.2 mmol/L 06/04/2024 7:18 PM EDT [facility] Blood Venipuncture / Unknown 06/04/2024 6:31 PM EDT 06/04/2024 6:50 PM EDT us Kayla Marie APRN LAB BLOOD ORDERABLES Final Re sult [facility] [address] [phone] * (ABNORMAL) Basic Metabolic Panel (05/25/2024 6:09 AM EDT) Only the most recent of4 resultswithin the time period is included. [facility] Sodium 126(L) 136 - 145 meq/L 05/25/2024 [...] MD LAB BLOOD ORDERABLES Final R esult [facility] [address] [phone] * (ABNORMAL) Hemoglobin and hematocrit (05/25/2024 1:24 AM EDT) Hemoglobin 9.7(L) 11.2 - 15.7 GM/DL 05/25/2024 1:39 AM EDT [facility] Hematocrit 28.6(L) 34.1 - 44.9 % 05/25/2024 1:39 AM EDT [facility] Blood Venipuncture / Unknown 05/25/2024 1:24 AM EDT 05/25/2024 1:33 AM EDT us Aristides Pickering PA-C LAB BLOOD ORDERABLES Final Result [facility] [address] [phone] * Phosphorus (05/25/2024 1:24 AM EDT) Phosphorus 3.6 2.5 - 4.5 mg/dL 05/25/2024 1:55 AM EDT [facility] Blood Venipuncture / Unknown 05/25/2024 1:24 AM EDT 05/25/2024 1:33 AM EDT Ac Wilks MD LAB BLOOD ORDERABLES Final R esult [facility] [address] [place] [address], [facility] [phone] * Transfuse RBC (05/25/2024 12:08 AM EDT) Only the most recent of2 resultswithin the time period is included. Ac Wilks MD FS_MODEL_IP_BLOOD TRANSFUSIO N ORDERABLES [...] Dr. John Edouard MD Ac Wilks MD G CT ORDERABLES Final Resu lt * Prepare RBC: 2 Units (05/24/2024 3:21 PM EDT) Issue Date/Time [id number] [facility] [place] Product Identification Red Blood Cells [facility]) Product Code [id number] [facility] [place] Status Information Transfused [facility] [place] Unit Number [id number] LAURI Estella [facility] [place] Blood Type 5100 [facility] [place] Cross Match Results Compatible [facility]) Ac Wilks MD FS_MODEL_IP_BLOOD BANK PRODU CT ORDERABLES Final Result [facility] [place] [address] [facility] [place] [address], [facility] [phone] * XR chest AP portable (05/24/2024 1:21 [...] ATRIAL RATE (MCT) 63 BPM GE MUSE AR Interval 186 ms GE MUSE QRS-INTERVAL (MSEC) 92 ms GE MUSE QT Interval 444 ms GE MUSE QTC Interval 454 ms GE MUSE P Deane 15 degrees GE MUSE R AXIS (MCT) 45 degrees GE MUSE T Wave [place] 35 degrees GE MUSE [place] Diagnosis Normal sinus rhythm Low voltage QRS Borderline ECG Confirmed by Liang Luna ([id number]) on 05/24/2024 1:34:15 PM GE MUSE 05/24/2024 12:5 8 AM EDT 05/24/2024 1:34 PM EDT Aristides Pickering PA-C ECG ORDERABLES Final Resu lt Performing Organization Address [facility] Co de Phone Number GE MUSE * High Sensitivity Troponin I (05/24/2024 12:54 AM EDT) Troponin I High Sensitivity (pg/mL) <5.0 <=14 pg/mL 05/24/2024 2:15 AM EDT [facility] Blood Venipuncture / Unknown 05/24/2024 12:54 AM EDT 05/24/2024 1:44 AM EDT Narrative [facility] - 05/24/2024 2:15 AM EDT Applicable to [facility] only. Effective April 30 the lab will begin using a new chemistry analyzer. HsTroponin methodology, reference ranges and critical values have changed. Aristides Pickering PA-C LAB BLOOD ORDERABLES Final Result Performing Organization Address [facility] Co de Phone Number [facility] [address] [phone] * CALCIUM Ionized (05/23/2024 8:31 AM EDT) [facility] Calcium Ionized 1.17 1.12 - 1.32 mmol/L 05/23/2024 9:12 AM EDT [facility] Blood Venipuncture / Unknown 05/23/2024 8:31 AM EDT 05/23/2024 9:06 AM EDT Aristides Pickering PA-C LAB BLOOD ORDERABLES Final Result Performing Organization Address [facility] Co de Phone Number [facility] [address] [phone] * Magnesium (05/23/2024 8:31 AM EDT) Magnesium 2.2 1.6 - 2.6 mg/dL 05/23/2024 9:32 AM EDT [facility] Blood Venipuncture / Unknown 05/23/2024 8:31 AM EDT 05/23/2024 9:04 AM EDT Aristides Pickering PA-C LAB BLOOD ORDERABLES Final Result [facility] 1 [place] [address], [facility] [phone] * Tissue Exam (05/22/2024 4:05 PM EDT) AP RESULT See Note: [facility] Comment: [facility] [address] [place] [address] or [phone] Jose Morgan M.D., Office Mail Clerk PATIENT NAME LABORATORY NO. 170DEMETRA DE OLIVEIRA [id number] AGE SEX SSN CLIENT REF # [facility] 44 1980 F [id number] [facility] REQUESTING William [place] [address] HEATH ROBLEDO DATE COLLECTED DATE RECEIVED DATE [...] interpretation rendered by Yaya Patrick M.D.,F.C.A.P. at [email or web address], [employer], [address] [place] [address], [place] [address]. GROSS DESCRIPTION: Specimen received in formalin labeled [...] other discrete mass lesions are grossly identified. Speech Therapy Teacher sections are submitted in 2 cassettes with sections including possible skin in A1. JTM/RLL REVIEWED, DIAGNOSED AND ELECTRONICALLY SIGNED BY: Yaya Patrick M.D.,F.C.A.P. CPT CODES: 14234 Tissue COLON STRUCTURE / Unknown 05/22/2024 4:05 PM EDT us Heath Robledo MD PATHOLOGY/CYTOLOGY ORDERABLES Fi nal Result [facility] [address] [place] [address] * AN SINGLE LUMEN INTUBATION (05/22/2024 2:25 [...] supine Prep: ChloraPrep Patient monitoring: heart rate, site monitor and continuous pulse ox Block type: TAP [...] 4 AM EDT 05/23/2024 8:06 AM EDT Narrative [facility] - 05/23/2024 8:06 AM EDT Punch Finisher ID is - [id number] us Not In System Provider POINT OF CARE TEST ORDERA BLES Final Result [facility] [address] [phone] * POC-Potassium (05/22/2024 11:44 AM EDT) Only the most recent of2 resultswithin the time period is included. POC Potassium 3.8 3.5 - 4.9 mmol/L 05/23/2024 8:06 AM EDT [facility] Blood 05/22/2024 11:4 4 AM EDT 05/23/2024 8:06 AM EDT Narrative [facility] - 05/23/2024 8:06 AM EDT Punch Finisher ID is - [id number] us Not In System Provider POINT OF CARE TEST ORDERA BLES Final Result Performing Organization Address [facility]/ZIP Co de Phone Number [facility] [address] [place], [place] [id number] [place] [address] * Type and Screen (05/22/2024 11:43 AM EDT) ABO/Rh O Positive 05/22/2024 11:[address] [facility] [place] Antibody Screen Negative 05/22/2024 11:[address] [facility] ([place]) HISTCHK HIST CHECK PERFORMED 05/22/2024 11:29 AM EDT [facility] [place]) Blood Venipuncture / Unknown 05/22/2024 11:43 AM EDT 05/22/2024 11:55 AM EDT us Heath Robledo MD [facility] TEST ORDERABLES F inal Result Performing Organization Address City/[facility]/ZIP Co de Phone Number [facility] ([place]) [address] [place] [address], [facility] [phone] * EKG-SCANNED (05/22/2024) Narrative 05/22/2024 Ordered by [...] Resul t [facility] [address] [phone] from Last 3 Months Insurance [employer] [facility] Advance Directives For more information, please contact: [phone] * Full Code (Latest Code Status on File) Date Activated Date Inactivated Comments 06/04/2024 8:28 PM 06/05/2024 3:41 PM * Full Code Date Activated Date Inactivated Comments 05/22/2024 5:45 PM 05/25/2024 6:01 PM Care Teams Program Director/Music Director Relationship Specialty Start Date End Date Deandra Lopez, PILE TRIMMER [address] [place] [address] PCP - General Nurse Practitioner 06/04/24
--- OUTSIDE RECORDS SUMMARY | 2024-07-16 15:12 | XMS_ITS | Clinical Summary ---
Author Organization [facility] Address [address] [place] [address] Phone Care Team Providers Care Second Chef Name Role Phone Jose Beavers MD [phone] Conditions or Problems Problem Name Problem Code Onset Date Status Entry Date Provider Comment Standard Description Annotate Gram-negative infection B96.89 (ICD-10-CM) Active 08/25 Callie Deal Other specified bacterial agents as the cause of diseases classified elsewhere Infection following a procedure, organ and space surgical site, subsequent encounter 122202889 (SNOMED CT) Active 08/25 Callie Deal Organ-space surgical site infection Abscess, intra-abdomina l 08364931 (SNOMED CT) Active 08/25 Callie Deal Acute bacterial peritonitis Neutrophilic leukemoid reaction D72.823 (ICD-10-CM) Active 08/25 Callie Deal Leukemoid reaction Obesity due to excess calories E66.09 (ICD-10-CM) Active 08/25 Callie Deal Other obesity due to excess calories DM Type II E11.9 (ICD-10-CM) Active 08/25 Callie Deal Type 2 diabetes mellitus without complications Medications Medication Instructions Start Date Stop Date Generic Name [facility] Provider DOXYCYCLINE HYCLATE 100 MG TABS Take 1 tablet by mouth twice a day doxycycline hyclate 61074298804 Jose Beavers MD CULTURELLE CAPS Take 1 capsule by mouth twice a day lactobacillus rhamnosus gg [id number] Jose Beavers MD ALPRAZOLAM 1 MG TABS 1 tab TID alprazolam [id number] Luis Nelson BUSPIRONE HCL 10 MG TABS 1 tab TID buspirone [id number] Luis Nelson VITAMIN D (ERGOCALCIFEROL) 58061 UNIT CAPS 1 tab every monday ergocalciferol (vitamin d2) 76324699579 Luis Nelson ESTRADIOL 0.1 MG/GM CREA 1 Gram, Vaginal, TuThSa estradiol 93370638819 Luis Nelson ESTRADIOL 2 MG TABS 1 tab daily estradiol 71477075067 Luis Nelson FUROSEMIDE 20 MG TABS 1 tab daily as needed furosemide 45365181134 Luis Nelson HYDROXYZINE HCL 50 MG TABS 1 tab TID as needed hydroxyzine hcl [id number] Luis Nelson HYDROXYZINE PAMOATE 50 MG CAPS 1 tab at bedtime hydroxyzine pamoate 96308114745 Luis Nelson ICOSAPENT ETHYL 1 GM CAPS 2 Cap, Oral, BID With Meals icosapent ethyl [id number] Luis Hammond i ISOSORBIDE MONONITRATE ER 30 MG [id number] 1 tab every morning isosorbide mononitrate 16581413445 Luis Nelson LAMOTRIGINE 100 MG TABS 1 tab BID lamotrigine [id number] Luis Nelson LEVOTHYROXINE SODIUM 125 MCG TABS 1 tab daily levothyroxine 62219455518 Luis Mead vi ATORVASTATIN CALCIUM 80 MG TABS 1 tab at bedtime atorvastatin 54625732525 Luis Nelson METFORMIN HCL 500 MG TABS 1 tab daily metformin 67200752774 Luis Nelson MELATONIN 5 MG TABS 1 tab every night melatonin [id number] Luis Nelson METOPROLOL SUCCINATE ER 50 MG [id number] 1.5 tab daily metoprolol succinate [id number] Luis Nelson MYRBETRIQ 50 MG [id number] 1 tab daily mirabegron [id number] Luis Nelson POTASSIUM CHLORIDE ER 20 MEQ CR-TABS 1 tab daily potassium chloride [id number] Luis Nelson ESOMEPRAZOLE MAGNESIUM 40 MG CPDR 1 tab daily esomeprazole magnesium 25186530731 Luis Nelson PRAZOSIN HCL 2 MG CAPS 4 Cap, Oral, At Bedtime prazosin 51605396900 Luis Nelson PRAZOSIN HCL 1 MG CAPS 2 Cap, Oral, QAM prazosin [id number] Luis Nelson PROVIGIL 200 MG TABS 1 Tab, Oral, every morning modafinil 11670842039 Luis Nelson TRIMETHOPRIM 100 MG TABS 1 Tab, Oral, Daily trimethoprim [id number] Luis Nelson VRAYLAR 3 MG CAPS 1 Tab, Oral, Daily cariprazine 42174108814 Luis Nelson Medications Administered No information available. Allergies, Adverse Reactions, Alerts Allergy Name Reaction Description Start Date Severity Statu s Provider 12 HOUR DECONGESTANT tachycardia, dizziness Mild Active Krima Leslie PREDNISONE hives Mild Active Krima Sa lvi ORAL STERIOIDS tachycardia, skin rash Mild A ctive Luis Leslie IMITREX tachycardia Mild Active Krima S duncan Results Date Name Value Unit Range Flag Description Chart Maintenance: Updated H H labs 09/06/21 LYMPHS % 33.0 % Lymphocytes/ 100 leukocytes in Blood by Automated count PMN % 56.3 % Neutrophils/1 00 leukocytes in Blood by Automated count PLATELETS 365 10*3/mm3 Platelets [#/volume] in Blood by Automated count HCT 29.0 % Hematocrit [V olume Fraction] of Blood by Automated count HGB 9.1 g/dL Hemoglobin [Mass/volume] in Blood RBC 3.30 10*6/mm3 Erythrocytes [#/volume] in Blood by Automated count WBC 5.3 10*3/mm3 Leukocytes [ #/volume] in Blood by Automated count Chart Maintenance: Updated H H labs 09/06/21 CRP 1.1 mg/dL C reactive pr otein [Mass/volume] in Serum or Plasma CPK 60 U/L Creatine aydee se [Enzymatic activity/volume] in Serum or Plasma BILI TOTAL 0.2 mg/dL Bilirubin. total [Mass/volume] in Serum or Plasma ALK PHOS 135 U/L Alkaline sara sphatase [Enzymatic activity/volume] in Blood SGPT (ALT) 21 U/L Alanine aminotransferase [Enzymatic activity/volume] in Serum or Plasma SGOT (AST) 38 U/L Aspartate aminotransferase [Enzymatic activity/volume] in Serum or Plasma CALCIUM 8.9 mg/dL Calcium [Mole s/volume] in Serum or Plasma POTASSIUM 3.9 mmol/L Potassium [Moles/volume] in Serum or Plasma SODIUM 138 mmol/L Sodium [Moles /volume] in Serum or Plasma CREATININE 1.0 mg/dL Creatinine [Mass/volume] in Serum or Plasma BUN 5 mg/dL Urea nitrogen [Mass/volume] in Serum or Plasma GLUCOSE SER 124 mg/dL Glucose [ Mass/volume] in Serum or Plasma ESR 52 mm/h Erythrocyte sedimentation rate by Westergren method Office Visit: 6 SMOK STATUS Current every day smoker Tobacco smoking status MEDS REVIEW Done Documenta tion of current medications (procedure) Plan of Care Type Date Detail Pending order New IV antibioti c Procedures Code Procedure Name Date Entry Date CPT-samson New IV antibiotic Vital Signs Date Name Value Unit Description BMI (Body Mass Index) 36.07 kg/m2 Bod y Mass Index (Ratio) Body Temperature 97.1 [degF] temperat ure E&M BP Diastolic 62 mm[Hg] blood pressu re, diastolic BP Systolic 100 mm[Hg] blood pressur e, systolic Heart Rate 72 /min pulse rate Height 65 [in_us] height E&M Respiratory Rate 16 /min respirat ory rate E&M Weight Measured 216.8 [lb_av] weight E& M Weight Measured 216.8 [lb_av] weight E& M Immunizations No information available. Advance Directives No information available.
--- OUTSIDE RECORDS SUMMARY | 2024-07-16 15:12 | XMS_ITS | Encounter Summary ---
Author Organization [facility] Address [address] [place] [address] Care Team Providers Care Bus Inspector Name Role Phone Deandra Lopez APRN Primary Care Provider [phone]- [phone] Deandra Lopez APRN Primary Care Provider [phone]- [phone] Encounter Details Date Type Department Care Team (Late st Contact Info) Description 08/22/2021 Transcribed Document [facility] [place] [facility] [place] [address] ProviderElaine MD [address] [place] [address] Social History Tobacco Use Types Packs/Day Years Used Date Smoking Tobacco: Never Assessed Comments Unknown Sex and Gender Information Value Date Recorded Sex Assigned at Female 12/08/2021 2:39 PM CDT Legal Sex Female 5:20 PM CDT Gender Identity Female 12/08/2021 2:39 PM CDT Sexual Orientation Straight 12/08/2021 2: 39 PM CDT documented as of this encounter Miscellaneous Notes * Cersylvester Conversion Note - Historical ProviderMD - 08/22/2021 5:00 PM CDT Chart Check - Review Order Profile Entered On: 08/22/2021 18:43 EDT Performed On: 08/22/2021 17:00 EDT by Sunitha De RN-PATIENT CARE BEDSIDE NON-EXEMPT Chart Check Powerplans Initiated/Discontinued as Appropriate : Yes All Active Orders Reviewed : Yes Sunitha De RN-PATIENT CARE BEDSIDE NON-EXEMPT - 08/22/2021 18:43 EDT documented in this encounter Plan of Treatment Upcoming Encounters Date Type Department Care Team (Late st Contact Info) Description 07/17/2024 11:00 AM EDT Appointment [facility] Wound & Ostomy Therapy [address] [place] [address] 08/28/2024 9:15 AM EDT Office Visit [facility] Urology - [address] [place] [address] Chandrika Santana, WEB WORKER [address] [place] [address] 04/17/2025 8:30 AM EDT Office Visit [facility] Cardiology - [place] [address] [place] [address] Tamara Sow PA-C [address] [facility] [address] [place] [address] documented as of this encounter Visit Diagnoses Not on filedocumented in this encounter Care Teams Bus Inspector Relationship Specialty Start Date End Date Deandra Lopez APRN PCP - General Nurse Practitioner 04/18/22 06/03/24 Deandra Lopez, WEB WORKER [address] [place] [address] PCP - General Nurse Practitioner 06/04/24 documented as of this encounter
--- OUTSIDE RECORDS SUMMARY | 2024-07-16 15:12 | XMS_ITS | Encounter Summary ---
Author Organization [facility] Address [address] [place] [address] Care Team Providers Care Material Liaison Name Role Phone Deandra Lopez APRN Primary Care Provider +1- [phone] Deandra Lopez APRN Primary Care Provider +1- [phone] Encounter Details Date Type Department Care Team (Late st Contact Info) Description 08/22/2021 Transcribed Document [facility] [place] [facility] [place] [address] ProviderElaine MD [address] [place] [address] Social History Tobacco Use Types Packs/Day [...] Conversion Note - Historical ProviderMD - 08/22/2021 9:30 AM CDT Patient: DEMETRA MARTINEZ Age: 41 Years Sex: Female : 1980 Subjective Doing better, pain has improved a lot. Drains placed yesterday, tube still in place. Passing gas. Blood pressure on the lower side. Has been afebrile. Procalcitonin and leukocytosis trending down. Vital Signs T: 36.6 ??C TMIN: 36.4 ??C TMAX: 37.2 ??C HR: 83(Monitored) RR: 16 BP: 93/51 SpO2: 93% Oxygen Settings (Last) Oxygen Therapy Mode: Room air (08/22/21 00:00:00) Oxygen Flow Rate: 2 Liter/Min (08/21/21 20:00:00) Intake & Output Totals Last 24 Hours (7a-7a) Input Total: 1833.31 mL Output Total: 2925 mL Balance: -1091.69 mL Physical Exam General: Alert, obese, no acute distress Neurologic: Moves all 4 extremities spontaneously, oriented X3, no focal deficits appreciated Lungs: Clear to auscultation, non-labored respiration, no crackles, no wheeze Heart: Normal rate, regular rhythm, no murmur, no edema Abdomen: Soft, diffusely TTP, non-distended, hypoactive bowel sounds, drains in place Musculoskeletal: No obvious deformity, no tenderness Skin: warm, dry, no rashes or lesions Psychiatric: Cooperative, appropriate mood and affect Assessment/Plan #Sepsis (POA) due to to intra-abdominal abscess?improving Tachycardia, leukocytosis, elevated Pro-Sanju 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 Will need to go home with these per surgery. Also will need antibiotics. Awaiting evaluation by ID. Consult placed yesterday morning and called yesterday afternoon At d/c will likely need - IV antibiotics until culture results. Will need to have daily infusion set up here at hospital if unable to get home health approved by insurance. PICC Tentatively at d/c will be going to -home with home health Expected d/c date -08/23 VTE Prophylaxis - Medical Heparin 5,000 Units, SubCutaneous, Inj, Q8HInt, Routine, Start 08/21/21 4:00:00 EDT, 08/21/21 3:54:00 EDT (SHELLIE CANALES) Sequential Compression Device Start: 08/21/21 3:24:00 EDT, Bilateral, Length: Knee High, While patient is in bed, Continuous Order (SHELLIE CANALES) Medications acetaminophen, 650 mg= 2 Tab, Oral, Q6H, PRN BuSpar, 10 mg= 1 Tab, Oral, TID Dextrose 50% injection, 25 Gram= 50 mL, IV Push, Q15Min, PRN Dextrose 50% injection, 25 Gram= 50 mL, IV Push, Q15Min, PRN Dextrose 50% injection, 25 Gram= 50 mL, IV Push, Q15Min, PRN Dextrose 50% injection, 12.5 Gram= 25 mL, IV Push, Q15Min, PRN estradiol, 2 mg= 2 Tab, Oral, Daily glucagon, 1 mg= 1 mL, IntraMuscular, Q15Min, PRN glucose 4 g oral tablet, chewable, 16 Gram= 4 Tab, Chew, Q15Min, PRN glucose 40% oral gel, 15 Gram= 37.5 mL, Oral, Q15Min, PRN heparin, 5000 Units= 1 mL, SubCutaneous, Q8HInt insulin lispro 76 kg - 100 kg, 76 kg - 100 kg scale, SubCutaneous, AC and at Bedtime lamoTRIgine, 100 mg= 1 Tab, Oral, BID levothyroxine, 125 mcg= 1 Tab, Oral, Daily Lipitor, 80 mg= 2 Tab, Oral, At Bedtime Myrbetriq, 50 mg= 2 Tab, Oral, Daily Kerens 5 mg-325 mg oral tablet, 1 Tab, Oral, Q6H, PRN Normal Saline 1,000 mL, 1000 mL, IntraVENous prazosin, 2 mg= 2 Cap, Oral, QAM prazosin, 8 mg= 8 Cap, Oral, At Bedtime Pristiq, 100 mg= 2 Tab, Oral, Daily Protonix, 40 mg= 1 Tab, Oral, Daily Provigil, 200 mg= 1 Tab, Oral, QAM Vraylar, 3 mg= 2 Cap, Oral, Daily Xanax, 1 mg= 2 Tab, Oral, TID Zosyn + Sodium Chloride 0.9% intravenous solution 100 mL Lab Results Test Name Test Result Date/Time Sodium Level 134 mmol/L (Low) 08/22/2021 05:42 EDT Sodium Level 135 mmol/L (Low) 08/21/2021 10:56 EDT Potassium Level 2.9 mmol/L (Low) 08/22/2021 05:42 EDT Potassium Level 3.0 mmol/L (Low) 08/21/2021 10:56 EDT Chloride Level 101 mmol/L (Low) 08/22/2021 05:42 EDT Chloride Level 99 mmol/L (Low) 08/21/2021 10:56 EDT Carbon Dioxide Level 26 mmol/L 08/22/2021 05:42 EDT Carbon Dioxide Level 27 mmol/L 08/21/2021 10:56 EDT Anion Gap 10 08/22/2021 05:42 EDT Anion Gap 12 08/21/2021 10:56 EDT Glucose Level 98 mg/dL 08/22/2021 05:42 EDT Glucose Level 113 mg/dL (High) 08/21/2021 10:56 EDT Blood Urea Nitrogen 4 mg/dL (Low) 08/22/2021 05:42 EDT Blood Urea Nitrogen 4 mg/dL (Low) 08/21/2021 10:56 EDT Creatinine Level 0.60 mg/dL 08/22/2021 05:42 EDT Creatinine Level 0.80 mg/dL 08/21/2021 10:56 EDT eGFR >60 mL/min/1.73m2 08/22/2021 05:42 EDT eGFR >60 mL/min/1.73m2 08/21/2021 10:56 EDT eGFR NonAfrican >60 mL/min/1.73m2 08/22/2021 05:42 EDT eGFR NonAfrican >60 mL/min/1.73m2 08/21/2021 10:56 EDT Bun/Creatinine 6.7 (Low) 08/22/2021 05:42 EDT Bun/Creatinine 5.0 (Low) 08/21/2021 10:56 EDT Calcium Level 7.8 mg/dL (Low) 08/22/2021 05:42 EDT Calcium Level 8.0 mg/dL (Low) 08/21/2021 10:56 EDT Magnesium Level 2.1 mg/dL 08/22/2021 05:42 EDT Device Comment 1 Notified Nurse RBV 08/22/2021 05:51 EDT Device Comment 1 Notified Nurse RBV 08/21/2021 20:36 EDT Device Comment 1 Notified Nurse RBV 08/21/2021 15:07 EDT Glucose POC2 100 mg/dL 08/22/2021 05:51 EDT Glucose POC2 108 mg/dL 08/21/2021 20:36 EDT Glucose POC2 90 mg/dL 08/21/2021 15:07 EDT WBC 8.9 K/uL 08/22/2021 05:42 EDT RBC 3.13 Million/uL (Low) 08/22/2021 05:42 EDT Hgb 8.5 g/dL (Low) 08/22/2021 05:42 EDT Hct 26.7 % (Low) 08/22/2021 05:42 EDT MCV 85.3 fL 08/22/2021 05:42 EDT MCH 27.2 pg 08/22/2021 05:42 EDT MCHC 31.8 Gram/dL (Low) 08/22/2021 05:42 EDT Platelet Count 427 K/uL (High) 08/22/2021 05:42 EDT MPV 8.5 fL (Low) 08/22/2021 05:42 EDT RDW 12.3 % 08/22/2021 05:42 EDT nRBC 0.020 (High) 08/22/2021 05:42 EDT Slide Review No 08/22/2021 05:42 EDT Procalcitonin 0.33 ng/mL 08/22/2021 05:42 EDT Electronically signed by Sean Higginbotham Conversion Advertising Sales Assistant Cerner at 05/27/2022 4:52 PM CDT documented in this encounter Plan of Treatment Upcoming Encounters Date Type Department Care Team (Late st Contact Info) Description 07/17/2024 11:00 AM EDT Appointment [facility] Wound & Ostomy Therapy [address] [place] [address] 08/28/2024 9:15 AM EDT Office Visit [facility] Urology - [address] [place] [address] Chandrika Santana, DISTILLERY MANAGER [address] [place] [address] 04/17/2025 8:30 AM EDT Office Visit [facility] Cardiology - [place] [address] [place] [address] Tamara Sow PA-C [address] [facility] [address] [place] [address] documented as of this encounter Visit Diagnoses Not on filedocumented in this encounter Care Teams Material Liaison Relationship Specialty Start Date End Date Deandra Lopez APRN PCP - General Nurse Practitioner 04/18/22 06/03/24 Deandra Lopez, DISTILLERY MANAGER [address] [place] [place] [address] PCP - General Nurse Practitioner 06/04/24 documented as of this encounter
--- OUTSIDE RECORDS SUMMARY | 2024-07-16 15:12 | XMS_ITS | Encounter Summary ---
Author Organization [facility] Address [address] [place] [address] Care Team Providers Care Lead Supply Worker Name Role Phone Deandra Lopez APRN Primary Care Provider +1- [phone] Deandra Lopez APRN Primary Care Provider +1- [phone] Encounter Details Date Type Department Care Team (Late st Contact Info) Description 08/04/2021 Transcribed Document [facility] [place] [address] ProviderElaine MD [address] [place], [place] [id number] Social History Tobacco Use Types Packs/Day Years [...] 6:36 PM CDT Pain Assessment Entered On: 08/07/2021 2:41 EDT Performed On: 08/06/2021 22:22 EDT by Gila Wood, Rn Intervention Information: oxyCODONE Performed by Gila Wood Rn on 08/06/2021 21:22:00 EDT oxyCODONE,5mg Oral,Pain (Moderate 4-6) Pain Assessment Pain Assessment : Follow-up assessment Pain Scale Goal : 4 Pain Scale Used : 0-10 Scale Gila Wood Rn - 08/07/2021 2:40 EDT Pain Scale Intensity : 2 Gila Wood Rn - 08/07/2021 2:40 EDT Image 4 - Images currently included in the form version of this document have not been included in the text rendition version of the form. Electronically signed by Ganesh Higginbotham Conversion Certified Nurse Practitioner Cerner at 05/27/2022 4:47 PM CDT documented in this encounter Plan of Treatment Upcoming Encounters Date Type Department Care Team (Late st Contact Info) Description 07/17/2024 11:00 AM EDT Appointment [facility] Wound & Ostomy Therapy [address] [place] [address] 08/28/2024 9:15 AM EDT Office Visit [facility] Urology - [address] [place] [address] Chandrika Santana, AIR DIRECTOR [address] [place] [address] 04/17/2025 8:30 AM EDT Office Visit [facility] Cardiology - [place] [address] [place] [address] Tamara Sow PA-C [address] [address] documented as of this encounter Visit Diagnoses Not on filedocumented in this encounter Care Teams Lead Supply Worker Relationship Specialty Start Date End Date Deandra Lopez APRN PCP - General Nurse Practitioner 04/18/22 06/03/24 Deandra Lopez, AIR DIRECTOR [address] [place] [address] PCP - General Nurse Practitioner 06/04/24 documented as of this encounter
--- OUTSIDE RECORDS SUMMARY | 2024-07-16 15:12 | XMS_ITS | Encounter Summary ---
Author Organization [facility] Address [address] [place] [address] Care Team Providers Care Supervisor Anodizing Name Role Phone Deandra Lopez APRN Primary Care Provider +1- [phone] Deandra Lopez APRN Primary Care Provider +1- [phone] Encounter Details Date Type Department Care Team (Late st Contact Info) Description 08/05/2021 Transcribed Document [facility] [place] [facility] [place] [address] ProviderElaine MD [address] [place] [address] Social History Tobacco Use Types [...] Conversion Note - Historical ProviderMD - 08/05/2021 12:00 AM CDT Pain Assessment Entered On: 08/05/2021 5:15 EDT Performed On: 08/05/2021 1:44 EDT by Nubia French Lpn Intervention Information: acetaminophen Performed by JOSELINE ABDI NON EMP RN on 08/05/2021 00:44:00 EDT acetaminophen,1000mg Oral Pain Assessment Pain Assessment : Follow-up assessment Pain Scale Goal : 4 Pain Scale Used : 0-10 Scale Nubia French Lpn - 08/05/2021 5:15 EDT Pain Scale Intensity : 1 Nubia French Lpn - 08/05/2021 5:15 EDT Image 4 - Images currently included in the form version of this document have not been included in the text rendition version of the form. Electronically signed by Ganesh Higginbotham Conversion Business Technology Architect Cerner at 05/27/2022 4:42 PM CDT documented in this encounter Plan of Treatment Upcoming Encounters Date Type Department Care Team (Late st Contact Info) Description 07/17/2024 11:00 AM EDT Appointment [facility] Wound & Ostomy Therapy [address] [place] [address] 08/28/2024 9:15 AM EDT Office Visit [facility] Urology - [address] [place] [address] Chandrika Santana, DANDY OPERATOR [address] [place] [address] 04/17/2025 8:30 AM EDT Office Visit [facility] Cardiology - [place] [address] [place] [address] Tamara Sow PA-C 227 [facility] [address] [place] [address] documented as of this encounter Visit Diagnoses Not on filedocumented in this encounter Care Teams Supervisor Anodizing Relationship Specialty Start Date End Date Deandra Lopez APRN PCP - General Nurse Practitioner 04/18/22 06/03/24 Deandra Lopez, DANDY OPERATOR [address] [facility] [place] [address] PCP - General Nurse Practitioner 06/04/24 documented as of this encounter
--- OUTSIDE RECORDS SUMMARY | 2024-07-16 15:12 | XMS_ITS | Encounter Summary ---
Author Organization [facility] Address [address] [place] [address] Care Team Providers Care Casing Mixer Name Role Phone Deandra Lopez APRN Primary Care Provider [phone] Deandra Lopez APRN Primary Care Provider [phone]- [phone] Encounter Details Date Type Department Care Team (Late st Contact Info) Description 08/23/2021 Transcribed Document [facility] [place] [facility] [place] [address] ProviderElaine MD [address] [place] [address] [id number] Social History Tobacco Use Types Packs/Day Years Used Date Smoking Tobacco: Never Assessed Comments Unknown Sex and Gender Information Value Date Recorded Sex Assigned at Female 12/08/2021 2:39 PM CDT Legal Sex Female 5:20 PM CDT Gender Identity Female 12/08/2021 2:39 PM CDT Sexual Orientation Straight 12/08/2021 2: 39 PM CDT documented as of this encounter Miscellaneous Notes * Cerner Conversion Note - Elaine ProviderMD - 08/23/2021 3:14 PM CDT Patient Education Materials Follows: PICC Home Care Guide A peripherally inserted central catheter (PICC) is a form of IV access that allows medicines and IV fluids to be quickly distributed throughout the body. The PICC is a long, thin, flexible tube (catheter) that is inserted into a vein in the upper arm. The catheter ends in a large vein in the chest (superior vena cava, or SVC). After the PICC is inserted, a chest X-ray may be done to make sure that it is in the correct place. A PICC may be placed for different reasons, such as: ??? To give medicines and liquid nutrition. ??? To give IV fluids and blood products. ??? If there is trouble placing a peripheral intravenous (PIV) catheter. If taken care of properly, a PICC can remain in place for several months. Having a PICC can also allow a person to go home from the hospital sooner. Medicine and PICC care can be managed at home by a family member, caregiver, or home health care team. What are the risks? Generally, having a PICC is safe. However, problems may occur, including: ??? A blood clot (thrombus) forming in or at the tip of the PICC. ??? A blood clot forming in a vein (deep vein thrombosis) or traveling to the lung (pulmonary embolism). ??? Inflammation of the vein (phlebitis) in which the PICC is placed. ??? Infection. Central line associated blood stream infection (CLABSI) is a serious infection that often requires hospitalization. ??? PICC movement (malposition). The PICC tip may move from its original position due to excessive physical activity, forceful coughing, sneezing, or vomiting. ??? A break or cut in the PICC. It is important not to use scissors near the PICC. ??? Nerve or tendon irritation or injury during PICC insertion. How to take care of your PICC Preventing problems ??? You and any caregivers should wash your hands often with soap. Wash hands: ? Before touching the PICC line or the infusion device. ? Before changing a bandage (dressing). ??? Flush the PICC as told by your health care provider. Let your health care provider know right away if the PICC is hard to flush or does not flush. Do not use force to flush the PICC. ??? Do not use a syringe that is less than 10 mL to flush the PICC. ??? Avoid blood pressure checks on the arm in which the PICC is placed. ??? Never pull or tug on the PICC. ??? Do not take the PICC out yourself. Only a trained clinical professional should remove the PICC. ??? Use clean and sterile supplies only. Keep the supplies in a dry place. Do not reuse needles, syringes, or any other supplies. Doing that can lead to infection. ??? Keep pets and children away from your PICC line. ??? Check the PICC insertion site every day for signs of infection. Check for: ? Leakage. ? Redness, swelling, or pain. ? Fluid or blood. ? Warmth. ? Pus or a bad smell. PICC dressing care ??? Keep your PICC bandage (dressing) clean and dry to prevent infection. ??? Do not take baths, swim, or use a hot tub until your health care provider approves. Ask your health care provider if you can take showers. You may only be allowed to take sponge baths for bathing. When you are allowed to shower: ? Ask your health care provider to teach you how to wrap the PICC line. ? Cover the PICC line with clear plastic wrap and tape to keep it dry while showering. ??? Follow instructions from your health care provider about how to take care of your insertion site and dressing. Make sure you: ? Wash your hands with soap and water before you change your bandage (dressing). If soap and water are not available, use hand customer service supervisor. ? Change your dressing as told by your health care provider. ? Leave stitches (sutures), skin glue, or adhesive strips in place. These skin closures may need to stay in place for 2 weeks or longer. If adhesive strip edges start to loosen and curl up, you may trim the loose edges. Do not remove adhesive strips completely unless your health care provider tells you to do that. ??? Change your PICC dressing if it becomes loose or wet. General instructions ??? Carry your PICC identification card or wear a medical alert bracelet at all times. ??? Keep the tube clamped at all times, unless it is being used. ??? Carry a smooth-edge clamp with you at all times to place on the tube if it breaks. ??? Do not use scissors or sharp objects near the tube. ??? You may bend your arm and move it freely. If your PICC is near or at the bend of your elbow, avoid activity with repeated motion at the elbow. ??? Avoid lifting heavy objects as told by your health care provider. ??? Keep all follow-up visits as told by your health care provider. This is important. Disposal of supplies ??? Throw away any syringes in a disposal container that is meant for sharp items (sharps container). You can buy a sharps container from a pharmacy, or you can make one by using an empty hard plastic bottle with a cover. ??? Place any used dressings or infusion bags into a plastic bag. Throw that bag in the trash. Contact a health care provider if: ??? You have pain in your arm, ear, face, or teeth. ??? You have a fever or chills. ??? You have redness, swelling, or pain around the insertion site. ??? You have fluid or blood coming from the insertion site. ??? Your insertion site feels warm to the touch. ??? You have pus or a bad smell coming from the insertion site. ??? Your skin feels hard and raised around the insertion site. Get help right away if: ??? Your PICC is accidentally pulled all the way out. If this happens, cover the insertion site with a bandage or gauze dressing. Do not throw the PICC away. Your health care provider will need to check it. ??? Your PICC was tugged or pulled and has partially come out. Do not push the PICC back in. ??? You cannot flush the PICC, it is hard to flush, or the PICC leaks around the insertion site when it is flushed. ??? You hear a flushing sound when the PICC is flushed. ??? You feel your heart racing or skipping beats. ??? There is a hole or tear in the PICC. ??? You have swelling in the arm in which the PICC was inserted. ??? You have a red streak going up your arm from where the PICC was inserted. Summary ??? A peripherally inserted central catheter (PICC) is a long, thin, flexible tube (catheter) that is inserted into a vein in the upper arm. ??? The PICC is inserted using a sterile technique by a specially trained nurse or physician. Only a trained clinical professional should remove it. ??? Keep your PICC identification card with you at all times. ??? Avoid blood pressure checks on the arm in which the PICC is placed. ??? If cared for properly, a PICC can remain in place for several months. Having a PICC can also allow a person to go home from the hospital sooner. This information is not intended to replace advice given to you by your health care provider. Make sure you discuss any questions you have with your health care provider. Document Revised: 06/03/2020 Document Reviewed: 06/03/2020 [employer] Patient Education ? 2020 [employer] Endocrinology Carbohydrate Counting for Diabetes Mellitus, Adult Carbohydrate counting is a method of keeping track of how many carbohydrates you eat. Eating carbohydrates naturally increases the amount of sugar (glucose) in the blood. Counting how many carbohydrates you eat improves your blood glucose control, which helps you manage your diabetes. It is important to know how many carbohydrates you can safely have in each meal. This is different for every person. A dietitian can help you make a meal plan and calculate how many carbohydrates you should have at each meal and snack. What foods contain carbohydrates? Carbohydrates are found in the following foods: ??? Grains, such as breads and cereals. ??? Dried beans and soy products. ??? Starchy vegetables, such as potatoes, peas, and corn. ??? Fruit and fruit juices. ??? Milk and yogurt. ??? Sweets and snack foods, such as cake, cookies, candy, chips, and soft drinks. How do I count carbohydrates in foods? There are two ways to count carbohydrates in food. You can read food labels or learn standard serving sizes of foods. You can use either of the methods or a combination of both. Using the Nutrition Facts label The Nutrition Facts list is included on the labels of almost all packaged foods and beverages in the [place] It includes: ??? The serving size. ??? Information about nutrients in each serving, including the grams (g) of carbohydrate per serving. To use the Nutrition Facts: ??? Decide how many servings you will have. ??? Multiply the number of servings by the number of carbohydrates per serving. ??? The resulting number is the total amount of carbohydrates that you will be having. Learning the standard serving sizes of foods When you eat carbohydrate foods that are not packaged or do not include Nutrition Facts on the label, you need to measure the servings in order to count the amount of carbohydrates. ??? Measure the foods that you will eat with a food scale or measuring cup, if needed. ??? Decide how many standard-size servings you will eat. ??? Multiply the number of servings by 15. For foods that contain carbohydrates, one serving equals 15 g of carbohydrates. ? For example, if you eat 2 cups or 10 oz (300 g) of strawberries, you will have eaten 2 servings and 30 g of carbohydrates (2 servings x 15 g = 30 g). ??? For foods that have more than one food mixed, such as soups and casseroles, you must count the carbohydrates in each food that is included. The following list contains standard serving sizes of common carbohydrate-rich foods. Each of these servings has about 15 g of carbohydrates: ??? 1 slice of bread. ??? 1 six-inch (15 cm) tortilla. ? cup or 2 oz (53 g) cooked rice or pasta. ? cup or 3 oz (85 g) cooked or canned, drained and rinsed beans or lentils. ? cup or 3 oz (85 g) starchy vegetable, such as peas, corn, or squash. ? cup or 4 oz (120 g) hot cereal. ? cup or 3 oz (85 g) boiled or mashed potatoes, or ? or 3 oz (85 g) of a large baked potato. ? cup or 4 fl oz (118 mL) fruit juice. ??? 1 cup or 8 fl oz (237 mL) milk. ??? 1 small or 4 oz (106 g) apple. ? or 2 oz (63 g) of a medium banana. ??? 1 cup or 5 oz (150 g) strawberries. ??? 3 cups or 1 oz (24 g) popped popcorn. What is an example of carbohydrate counting? To calculate the number of carbohydrates in this sample meal, follow the steps shown below. Sample meal ??? 3 oz (85 g) chicken breast. ? cup or 4 oz (106 g) brown rice. ? cup or 3 oz (85 g) corn. ??? 1 cup or 8 fl oz (237 mL) milk. ??? 1 cup or 5 oz (150 g) strawberries with sugar-free whipped topping. Carbohydrate calculation 1. Identify the foods that contain carbohydrates: ??? Rice. ??? [place]. ??? Milk. ??? Strawberries. 2. Calculate how many servings you have of each food: ??? 2 servings rice. ??? 1 serving corn. ??? 1 serving milk. ??? 1 serving strawberries. 3. Multiply each number of servings by 15 g: ??? 2 servings rice x 15 g = 30 g. ??? 1 serving corn x 15 g = 15 g. ??? 1 serving milk x 15 g = 15 g. ??? 1 serving strawberries x 15 g = 15 g. 4. Add together all of the amounts to find the total grams of carbohydrates eaten: ??? 30 g + 15 g + 15 g + 15 g = 75 g of carbohydrates total. What are tips for following this plan? Shopping ??? Develop a meal plan and then make a shopping list. ??? Buy fresh and frozen vegetables, fresh and frozen fruit, dairy, eggs, beans, lentils, and whole grains. ??? Look at food labels. Choose foods that have more fiber and less sugar. ??? Avoid processed foods and foods with added sugars. Meal planning ??? Aim to have the same amount of carbohydrates at each meal and for each snack time. ??? Plan to have regular, balanced meals and snacks. Where to find more information ??? [place] Diabetes Association: www.diabetes.org ??? Centers for Disease Control and Prevention: www.cdc.gov Summary ??? Carbohydrate counting is a method of keeping track of how many carbohydrates you eat. ??? Eating carbohydrates naturally increases the amount of sugar (glucose) in the blood. ??? Counting how many carbohydrates you eat improves your blood glucose control, which helps you manage your diabetes. ??? A dietitian can help you make a meal plan and calculate how many carbohydrates you should have at each meal and snack. This information is not intended to replace advice given to you by your health care provider. Make sure you discuss any questions you have with your health care provider. Document Revised: 01/23/2020 Document Reviewed: 01/24/2020 [employer] Patient Education ? 2020 [employer] Diabetes Mellitus and Nutrition, Adult When you have diabetes, or diabetes mellitus, it is very important to have healthy eating habits because your blood sugar (glucose) levels are greatly affected by what you eat and drink. Eating healthy foods in the right amounts, at about the same times every day, can help you: ??? Control your blood glucose. ??? Lower your risk of heart disease. ??? Improve your blood pressure. ??? Reach or maintain a healthy weight. What can affect my meal plan? Every person with diabetes is different, and each person has different needs for a meal plan. Your health care provider may recommend that you work with a dietitian to make a meal plan that is best for you. Your meal plan may vary depending on factors such as: ??? The calories you need. ??? The medicines you take. ??? Your weight. ??? Your blood glucose, blood pressure, and cholesterol levels. ??? Your activity level. ??? Other health conditions you have, such as heart or kidney disease. How do carbohydrates affect me? Carbohydrates, also called carbs, affect your blood glucose level more than any other type of food. Eating carbs naturally raises the amount of glucose in your blood. Carb counting is a method for keeping track of how many carbs you eat. Counting carbs is important to keep your blood glucose at a healthy level, especially if you use insulin or take certain oral diabetes medicines. It is important to know how many carbs you can safely have in each meal. This is different for every person. Your dietitian can help you calculate how many carbs you should have at each meal and for each snack. How does alcohol affect me? Alcohol can cause a sudden decrease in blood glucose (hypoglycemia), especially if you use insulin or take certain oral diabetes medicines. Hypoglycemia can be a life-threatening condition. Symptoms of hypoglycemia, such as sleepiness, dizziness, and confusion, are similar to symptoms of having too much alcohol. ??? Do not drink alcohol if: ? Your health care provider tells you not to drink. ? You are , may be , or are planning to become . ??? If you drink alcohol: ? Do not drink on an empty stomach. ? Limit how much you use to: ? 0?1 drink a day for women. ? 0?2 drinks a day for men. ? Be aware of how much alcohol is in your drink. In the [place] one drink equals one 12 oz bottle of beer (355 mL), one 5 oz glass of wine (148 mL), or one 1? oz glass of hard liquor (44 mL). ? Keep yourself hydrated with water, diet soda, or unsweetened iced tea. ? Keep in mind that regular soda, juice, and other mixers may contain a lot of sugar and must be counted as carbs. What are tips for following this plan? Reading food labels ??? Start by checking the serving size on the Nutrition Facts label of packaged foods and drinks. The amount of calories, carbs, fats, and other nutrients listed on the label is based on one serving of the item. Many items contain more than one serving per package. ??? Check the total grams (g) of carbs in one serving. You can calculate the number of servings of carbs in one serving by dividing the total carbs by 15. For example, if a food has 30 g of total carbs per serving, it would be equal to 2 servings of carbs. ??? Check the number of grams (g) of saturated fats and trans fats in one serving. Choose foods that have a low amount or none of these fats. ??? Check the number of milligrams (mg) of salt (sodium) in one serving. Most people should limit total sodium intake to less than 2,300 mg per day. ??? Always check the nutrition information of foods labeled as low-fat or nonfat. These foods may be higher in added sugar or refined carbs and should be avoided. ??? Talk to your dietitian to identify your daily goals for nutrients listed on the label. Shopping ??? Avoid buying canned, pre-made, or processed foods. These foods tend to be high in fat, sodium, and added sugar. ??? Shop around the outside edge of the grocery store. This is where you will most often find fresh fruits and vegetables, bulk grains, fresh meats, and fresh dairy. Cooking ??? Use low-heat cooking methods, such as baking, instead of high-heat cooking methods like deep frying. ??? Cook using healthy oils, such as olive, canola, or sunflower oil. ??? Avoid cooking with butter, cream, or high-fat meats. Meal planning ??? Eat meals and snacks regularly, preferably at the same times every day. Avoid going long periods of time without eating. ??? Eat foods that are high in fiber, such as fresh fruits, vegetables, beans, and whole grains. Talk with your dietitian about how many servings of carbs you can eat at each meal. ??? Eat 4?6 oz (112?168 g) of lean protein each day, such as lean meat, chicken, fish, eggs, or tofu. One ounce (oz) of lean protein is equal to: ? 1 oz (28 g) of meat, chicken, or fish. ? 1 egg. ? ? cup (62 g) of tofu. ??? Eat some foods each day that contain healthy fats, such as avocado, nuts, seeds, and fish. What foods should I eat? Fruits Berries. Apples. Oranges. Peaches. Apricots. Plums. Grapes. [place]. Papaya. Pomegranate. Kiwi. Cherries. Vegetables Lettuce. Spinach. Leafy greens, including kale, chard, german greens, and mustard greens. Beets. Cauliflower. Cabbage. Broccoli. Carrots. Green beans. Tomatoes. Peppers. Onions. Cucumbers. [place] sprouts. Grains Whole grains, such as whole-wheat or whole-grain bread, crackers, tortillas, cereal, and pasta. Unsweetened oatmeal. Quinoa. Brown or wild rice. Meats and other proteins Seafood. Poultry without skin. Lean cuts of poultry and beef. Tofu. Nuts. Seeds. Dairy Low-fat or fat-free dairy products such as milk, yogurt, and cheese. The items listed above may not be a complete list of foods and beverages you can eat. Contact a dietitian for more information. What foods should I avoid? Fruits Fruits canned with syrup. Vegetables Canned vegetables. Frozen vegetables with butter or cream sauce. Grains Refined white flour and flour products such as bread, pasta, snack foods, and cereals. Avoid all processed foods. Meats and other proteins Fatty cuts of meat. Poultry with skin. Breaded or fried meats. Processed meat. Avoid saturated fats. Dairy Full-fat yogurt, cheese, or milk. Beverages Sweetened drinks, such as soda or iced tea. The items listed above may not be a complete list of foods and beverages you should avoid. Contact a dietitian for more information. Questions to ask a health care provider ??? Do I need to meet with a tobacco educator? Do I need to meet with a dietitian? What number can I call if I have questions? When are the best times to check my blood glucose? Where to find more information: ??? [place] Diabetes Association: diabetes.org ??? Academy of Nutrition and Dietetics: www.eatright.org ??? National [place] of Diabetes and Digestive and Kidney Diseases: www.niddk.nih.gov ??? Association of Diabetes Care and Education Specialists: www.diabeteseducator.org Summary ??? It is important to have healthy eating habits because your blood sugar (glucose) levels are greatly affected by what you eat and drink. ??? A healthy meal plan will help you control your blood glucose and maintain a healthy lifestyle. ??? Your health care provider may recommend that you work with a dietitian to make a meal plan that is best for you. ??? Keep in mind that carbohydrates (carbs) and alcohol have immediate effects on your blood glucose levels. It is important to count carbs and to use alcohol carefully. This information is not intended to replace advice given to you by your health care provider. Make sure you discuss any questions you have with your health care provider. Document Revised: 12/31/2019 Document Reviewed: 12/31/2019 [employer] Patient Education ? 2020 [employer] Infectious Disease Skin Abscess A skin abscess is an infected area of your skin that contains pus and other material. An abscess can happen in any part of your body. Some abscesses break open (rupture) on their own. Most continue to get worse unless they are treated. The infection can spread deeper into the body and into your blood, which can make you feel sick. A skin abscess is caused by germs that enter the skin through a cut or scrape. It can also be caused by blocked oil and sweat glands or infected hair follicles. This condition is usually treated by: ??? Draining the pus. ??? Taking antibiotic medicines. ??? Placing a warm, wet washcloth over the abscess. Follow these instructions at home: Medicines ??? Take [id number] and prescription medicines only as told by your doctor. ??? If you were prescribed an antibiotic medicine, take it as told by your doctor. Do not stop taking the antibiotic even if you start to feel better. Abscess care ??? If you have an abscess that has not drained, place a warm, clean, wet washcloth over the abscess several times a day. Do this as told by your doctor. ??? Follow instructions from your doctor about how to take care of your abscess. Make sure you: ? Cover the abscess with a bandage (dressing). ? Change your bandage or gauze as told by your doctor. ? Wash your hands with soap and water before you change the bandage or gauze. If you cannot use soap and water, use hand customer service supervisor. ??? Check your abscess every day for signs that the infection is getting worse. Check for: ? More redness, swelling, or pain. ? More fluid or blood. ? Warmth. ? More pus or a bad smell. General instructions ??? To avoid spreading the infection: ? Do not share personal care items, towels, or hot tubs with others. ? Avoid making [id number] contact with other people. ??? Keep all follow-up visits as told by your doctor. This is important. Contact a doctor if: ??? You have more redness, swelling, or pain around your abscess. ??? You have more fluid or blood coming from your abscess. ??? Your abscess feels warm when you touch it. ??? You have more pus or a bad smell coming from your abscess. ??? You have a fever. ??? Your muscles ache. ??? You have chills. ??? You feel sick. Get help right away if: ??? You have very bad (severe) pain. ??? You see red streaks on your skin spreading away from the abscess. Summary ??? A skin abscess is an infected area of your skin that contains pus and other material. ??? The abscess is caused by germs that enter the skin through a cut or scrape. It can also be caused by blocked oil and sweat glands or infected hair follicles. ??? Follow your doctor's instructions on caring for your abscess, taking medicines, preventing infections, and keeping follow-up visits. This information is not intended to replace advice given to you by your health care provider. Make sure you discuss any questions you have with your health care provider. Document Revised: 08/29/2019 Document Reviewed: 03/08/2018 [employer] Patient Education ? 2020 ALICE App. Electronically signed by Ganesh Higginbotham Conversion Accounting Professional Cerner at 05/27/2022 4:45 PM CDT documented in this encounter Plan of Treatment Upcoming Encounters Date Type Department Care Team (Late st Contact Info) Description 07/17/2024 11:00 AM EDT Appointment [facility] Wound & Ostomy Therapy [address] [place] [address] 08/28/2024 9:15 AM EDT Office Visit [facility] Urology - [address] [place] [address] Chandrika Santana, DYE STAND LOADER [address] [place] [address] 04/17/2025 8:30 AM EDT Office Visit [facility] Cardiology - [place] [address] [place] [address] Tamara Sow PA-C [address] [facility] [address] [place] [address] documented as of this encounter Visit Diagnoses Not on filedocumented in this encounter Care Teams Casing Mixer Relationship Specialty Start Date End Date Deandra Lopez APRN PCP - General Nurse Practitioner 04/18/22 06/03/24 Deandra Lopez, DYE STAND LOADER [address] [place] [address] PCP - General Nurse Practitioner 06/04/24 documented as of this encounter
--- OUTSIDE RECORDS SUMMARY | 2024-07-16 15:12 | XMS_ITS | Encounter Summary ---
Author Organization [facility] Address [address] [place] [address] Care Team Providers Care Gore Cutter Name Role Phone Liliam Lopez APRN Primary Care Provider [phone]- [phone] Liliam Lopez APRN Primary Care Provider [phone]- [phone] Encounter Details Date Type Department Care Team (Late st Contact Info) Description 08/04/2021 Transcribed Document [facility] [place] [facility] [place] [address] ProviderElaine MD [address] [place] [address] Social History Tobacco Use Types [...] Historical ProviderMD - 08/04/2021 4:03 PM CDT [facility] Main OR IntraOp Summary Primary Physician: HEATH ROBLEDO MD-PRO Finalized Date/Time: 08/05/21 11:08:28 Pt. Name: DEMETRA DIAZ.O.B./Sex: 1980 Female Med Rec #: [id number] Physician: HEATH ROBLEDO MD-PRO Financial #: [id number] Pt. Type: I Room/Bed: [facility]/ Admit/Disch: 08/04/21 07:29:00 - Institution: [facility] IntraOp Case Attendance Entry 1 Entry 2 Entry 3 Case Attendee HEATH ROBLEDO MD-PRO ABBIE RACHEL, KRISTYN, PRABHA VILLALOBOS MD-ANS COMMERCIAL ENGINEER Role Performed Surgeon/Proceduralist, COMMERCIAL ENGINEER/Nurse Retail Product Demo Specialist Anesthesiologist First Time In 08/04/21 15:29:00 08/04/21 15:29:00 08/04/21 15:29:00 Time Out 08/04/21 18:21:00 08/04/21 17:41:00 08/04/21 18:21:00 Procedure Colectomy Colectomy Colectomy Other Attendee Superficial Wound Closed By: Last Modified By: Halima Mccoy, Halima Valladares, Halima Valladares RN 08/04/21 18:21:59 08/04/21 18:21:59 08/04/21 18:21:59 Entry 4 Entry 5 Entry 6 Case Attendee Tyree Burrell ST Watson, Katie, SPECIAL EDUCATION ADMINISTRATOR Halima Mccoy, RAYSA Role Performed Sensor Technician, First Scrub, First Vice President Regulatory, First Time In 08/04/21 15:29:00 08/04/21 15:29:00 08/04/21 15:29:00 Time Out 08/04/21 18:21:00 08/04/21 18:21:00 08/04/21 18:21:00 Procedure Colectomy Colectomy Colectomy Other Attendee Superficial Wound Closed By: Last Modified By: Halima Mccoy RN Duncan, Richelle, RN Duncan, Richelle, RN 08/04/21 18:21:59 08/04/21 18:21:59 08/04/21 18:21:59 Entry 7 Case Attendee LILIAM HA COMMERCIAL ENGINEER Role Performed COMMERCIAL ENGINEER/Nurse Retail Product Demo Specialist Time In 08/04/21 17:41:00 Time Out 08/04/21 18:06:00 Procedure Colectomy Other Attendee Superficial Wound Closed By: Last Modified By: Halima Mccoy RN 08/04/21 18:21:59 [facility] IntraOp Case Attendance Audit 08/04/21 18:21:59 Choir Leader: [id number] Modifier: [id number] <+> Time Out 1 <*> Procedure Colectomy 2 <*> Procedure Colectomy 3 <+> Time Out 3 <*> Procedure Colectomy 4 <+> Time Out 4 <*> Procedure Colectomy 5 <+> Time Out 5 <*> Procedure Colectomy 6 <+> Time Out 6 <*> Procedure Colectomy 7 <*> Procedure Colectomy 08/04/21 18:10:33 Choir Leader: [id number] Modifier: [id number] <+> Time Out 7 <*> Procedure Colectomy 08/04/21 17:41:33 Choir Leader: [id number] Modifier: [id number] <+> Time Out 2 <*> Procedure Colectomy <+> 7 Case Attendee <+> 7 Role Performed <+> 7 Time In <+> 7 Procedure 08/04/21 16:26:27 Choir Leader: [id number] Modifier: [id number] <+> 1 Time In <+> 1 Procedure 2 <+> Time In 2 <*> Procedure Colectomy 3 <+> Time In 3 <*> Procedure Colectomy 4 <+> Time In 4 <*> Procedure Colectomy 5 <+> Time In 5 <*> Procedure Colectomy 6 <+> Time In 6 <*> Procedure Colectomy [facility] IntraOp Case Times Entry 1 Patient In Room Time 08/04/21 15:29:00 Out Room Time 08/04/21 18:21:00 Anesthesia Start Time 08/04/21 15:29:00 Stop Time 08/04/21 18:21:00 Surgery / Procedure Times Start Time 08/04/21 16:03:00 Stop Time 08/04/21 18:13:00 Last Modified By: Halima Mccoy, RAYSA 08/04/21 18:21:58 [facility] IntraOp Case Times Audit 08/04/21 18:21:58 Choir Leader: [id number] Modifier: [id number] <+> 1 Out Room Time <+> 1 Stop Time 08/04/21 18:18:11 Choir Leader: [id number] Modifier: [id number] <+> 1 Stop Time [facility] IntraOp Cautery Entry 1 ESU Identification Cautery Type Monopolar ESU ID Number [id number] ID Type Hospital Number Cautery Settings Cut Setting 30 Coag Setting 30 ESU Grounding Pad Ground Pad Type Adult Grounding Pad Site Right thigh Grounding Pad Site RIGHT LATERAL THIGH, Comment NOT OVER TATTOO Grounding Pad Halima Mccoy, RN Applied By Grounding Pad Site Warm, dry and intact Skin Condition Before Cautery Grounding Pad Site Unchanged Skin Condition After Cautery Last Modified By: Halima Mccoy RN 08/04/21 16:20:40 [facility] IntraOp Cautery Audit 08/04/21 16:20:40 Choir Leader: [id number] Modifier: [id number] <*> Grounding Pad Site Other 1 <*> Grounding Pad Site Comment MEGADYNE PAD [facility] IntraOp Communication Entry 1 Entry 2 Communication To Family/Significant other Family/Significant other Comment START UPDATE Communication By Halima Mccoy RN Duncan, Richelle, RN Date and Time 08/04/21 16:10:00 08/04/21 17:31:00 Last Modified By: Halima Mccoy RN Duncan, Richelle, RN 08/04/21 16:17:02 08/04/21 17:31:51 [facility] IntraOp Communication Audit 08/04/21 17:31:51 Choir Leader: [id number] Modifier: [id number] <+> 2 Communication By <+> 2 Date and Time <+> 2 Communication To <+> 2 Comment [facility] IntraOp Counts Verification Entry 1 Entry 2 Procedure Colectomy Colectomy Count Info Count Type Sponge, Sharps, Sponge, Sharps, Instrument, Instrument, Miscellaneous Miscellaneous Counts Verification Baseline/pre-procedure Before wound closure Sequence Count Results Correct, surgeon notified If Incorrect or Waived complete the Counts Action Taken form: If Intentional Retention, complete the Intential Retention form: Counts Performed By Count Performed By Lesly Muhammad, Lesly Galarza CST (Scrub) Count Performed By Halima Mccoy, Halima Valladares, RN (RN) Last Modified By: Halima Mccoy, Halima Valladares, RAYSA 08/04/21 16:17:14 08/04/21 17:36:25 [facility] IntraOp Counts Verification Audit 08/04/21 17:36:25 Choir Leader: [id number] Modifier: [id number] <+> 2 Procedure <+> 2 Count Type <+> 2 Counts Verification Sequence <+> 2 Count Results <+> 2 Count Performed By (Scrub) <+> 2 Count Performed By (RN) [facility] IntraOp Counts Final Entry 1 Procedure Colectomy Final Count Info Count Type Sponge, Sharps, Miscellaneous Counts Verification Skin Closure/end of Sequence procedure Count Results Correct, surgeon notified Counts Performed By Count Performed By Lesly Muhammad CST (Scrub) Count Performed By Halima Mccoy RN (RN) Last Modified By: Halima Mccoy RN 08/04/21 17:46:38 [facility] IntraOp Cultures and Spec Summary Entry 1 Cultrures and Specimens Specimen Ordered: Yes Test(s) Routine/Path-Lab Requested/Final Disposition Last Modified By: Halima Mccoy RN 08/04/21 16:17:19 [facility] IntraOp Delays Entry 1 Delay Reason Ancillary department delay Duration 5 Minute(s) Comment LOOKING FOR ANTIBIOTICS Last Modified By: Halima Mccoy RN 08/04/21 16:17:38 [facility] IntraOp Departure from OR Entry 1 Integumentary Assessment Integumentary WDL Assessment WDL Transfer/Handoff Transfer to PACU Phase I Handoff Method Bedside/Face to face, Phone call Post-op Transport Stretcher/Gurney Via Patient Transport Tyree Burrell ST, Accompanied by ABBIE RACHEL APRN, GAVIN Last Modified By: Halima Mccoy RN 08/04/21 16:17:47 [facility] IntraOp Dressing and Packing Entry 1 Type Dressing Location ABDOMEN Wound Dressing Item Skin Closure Glue Applied By Tyree Burrell ST Last Modified By: Halima Mccoy RN 08/04/21 16:18:05 [facility] IntraOp Fire Risk Assessment Entry 1 Fire Info Surgical Site or 0- No Incision Above the Xyphoid Open O2 Source 0- No (Mask or Cannula) Available Ignition 1- Yes (ESU, Laser, Light Source) Fire Risk 1 Assessment Score Fire Score Fire Risk Yes Assessment Complete Fire Risk Halima Mccoy, consumer insights specialist Verified By Fire Risk 08/04/21 15:29:00 Assessment Verified Date/Time Fire Risk Standard Fire Yes Safety Precautions Followed Last Modified By: Halima Mccoy RN 08/04/21 16:18:11 [facility] IntraOp General Case Decorating Instructor 1 Case Information OR OR 06 [facility] Case Level 1 Room Verified Yes Wound Class 2 - Clean-Contaminated Specialty Colorectal Anesthesia Type General ASA Class 3 Diagnosis Preop Diagnosis CONSTIPATION Postop Same As Preop No Postop Diagnosis SEE MD POST OP NOTE Wound Class Definitions Last Modified By: Halima Mccoy RN 08/04/21 16:18:42 [facility] IntraOp Intraoperative Assessment Entry 1 Handoff Method Online nursing summary Valid History / Yes Physical in Chart Preoperative Yes Checklist Reviewed/Evaluated Allergies Reviewed Yes Patient is Latex No Sensitive Isolation Not applicable Precautions Noted Level of WDL Consciousness (WDL = Alert, Oriented to Person, Place, and Time) Skin Assessment Yes Verified Present Upon IVs Arrival to OR Prosthetic/Assistive Stimulator Devices Intraoperative SPINAL CORD STIMULATOR Assessment Comment SET IN SURGERY MODE ACCORDING TO PATIENT Last Modified By: Halima Mccoy RN 08/04/21 16:21:20 [facility] IntraOp Intraoperative Assessment Audit 08/04/21 16:21:20 Choir Leader: [id number] Modifier: [id number] 1 <+> Patient is Latex Sensitive 1 <+> Isolation Precautions Noted 1 <*> Skin Assessment Verified No 1 <+> Prosthetic/Assistive Devices 1 <+> Intraoperative Assessment Comment [facility] IntraOp Intraoperative Equipment Entry 1 Entry 2 Type Equipment Equipment Equipment Equipment Holger Suction System Smoke evacuator ID Number [id number] Setting Intraop Monitoring Electrocardiogram (ECG) Electrode Placement Blood Pressure Source Blood Pressure Location Pulse Oximeter Probe Site Antiembolic Devices Antiembolic Devices Antiembolic Device Location Antiembolic Device ID Number Antiembolic Device Setting Scopes Flexible Endoscopes Used Scope Serial Number/Identificatio n Number Photo/Video Documentation Photo Video Intraop Equipment Comment Last Modified By: Halima Mccoy RN Duncan, Richelle, RN 08/04/21 16:21:40 08/04/21 16:21:40 [facility] IntraOp Medication Admin Entry 1 Entry 2 Medication/Irrigant NaCl 0.9% 100ml vial - MATRIX FLOSEAL HEMO [id number] 10ML --[id number] Combo Med List Time Administered Route of IRRIGATION Administration Dose Dose Unit of Measure Volume Administered By HEATH ROBLEDO MD-PRO HEATH ROBLEDO MD-PRO Procedure Irrigation Irrigant Volume In Irrigant Volume Out Last Modified By: Halima Mccoy RN Duncan, Richelle, RN 08/04/21 16:24:05 08/04/21 17:30:07 [facility] IntraOp Medication Admin Audit 08/04/21 17:30:07 Choir Leader: [id number] Modifier: [id number] <+> 2 Medication/Irrigant <+> 2 Administered By [facility] IntraOp Patient Positioning Entry 1 Procedure Colectomy Body Position Lithotomy Left Arm Position Secured on padded arm board Right Arm Position Secured on padded arm board Left Leg Position Secured in Leg Lacy Right Leg Position Secured in Leg Lacy Feet Uncrossed Yes Pressure Points Yes Checked Positioning Devices Head Rest, Pad, Arm, Pad, Mattress, Stirrups/Leg Lacy, Boot Positioned By HEATH ROBLEDO MD-PRO, ABBIE RACHEL APRN, GAVIN, Halima Mccoy, RAYSA, Tyree Burrell ST Position Verified Positioning Yes Verified by Anesthesia Positioning Yes Verified by Surgeon Last Modified By: Halima Mccoy RN 08/04/21 16:25:33 [facility] IntraOp Sign In Entry 1 Patient, Site, Yes Procedure Identified Surgical Consent Yes Confirmed Relevant Surgical Yes Documents Available Surgical Site N/A Marked by person performing procedure Anesthesia Machine Yes Check Completed Medication Checks Yes Completed Allergies Yes Airway Difficult Yes Airway/Aspiration Risk Difficult Yes Airway/Aspiration Intervention Equipment Available Blood Loss Risk Yes Blood Loss Yes Intervention Equipment Prepared and Ready Blood Identifiers Yes Verified Per Policy Hypothermia Risk Yes Warming Measures Yes Taken Last Modified By: Halima Mccoy RN 08/04/21 16:25:42 [facility] IntraOp Sign Out Entry 1 RN Confirmation Surgical Yes Procedure(s) Identified Instrument, Sponge Yes and Sharps Counts Correct/Documented Equipment Problems N/A Documented Specimen Labeled Yes Correctly Urinary Catheter Yes Documented in IView Wound Yes classification reviewed, verified and updated post case in both the General Case Data and Procedure segments Adam Patient Yes Recovery Concerns Reviewed with Anesthesia Provider, Surgeon and RN Adam Patient Yes Management Concerns Reviewed with Anesthesia Provider, Surgeon and RN Safety Checklist Yes Elements Complete? RN Sign Out Halima Mccoy RN Signature RN Sign Out 08/04/21 18:18:00 Signature Date/Time Plan of Care Outcome - Fire Risk OUTCOME STATEMENT: Goal met Patient is free from injury related to surgical fire Plan of Care Outcome - Pt Positioning OUTCOME STATEMENT: Goal met Absence of signs and symptoms of positioning injury. Plan of Care Outcome - Skin Prep OUTCOME STATEMENT: Goal met Intraoperative care is consistent with measures to prevent infection Plan of Care Outcome - Xray/Images OUTCOME STATEMENT: N/A Absence of observable signs or symptoms of radiation injury Plan of Care Outcome - Counts OUTCOME STATEMENT: Goal met Absence of signs and symptoms of injury related to extraneous objects Last Modified By: Halima Mccoy RN 08/04/21 18:18:20 [facility] IntraOp Sign Out Audit 08/04/21 18:18:20 Choir Leader: [id number] Modifier: [id number] <+> 1 RN Sign Out Signature Date/Time [facility] Intra Skin Prep Entry 1 Procedure Colectomy Prescribed Yes Pre-Surgical Prep Completed Prep Area ABDOMEN AND PERIANAL Intraop Prep Integumentary WDL Assessment WDL Prep Agents Chloraprep, Betadine scrub, Betadine solution Prep by Halima Mccoy RN Hair Removal Last Modified By: Halima Mccoy RN 08/04/21 16:26:15 [facility] Intra Surgical Procedures Entry 1 Procedure Colectomy Additional SUBTOTAL COLECTOMY WITH Procedure ILEORECTAL ANASTOMOSIS Description Primary Procedure Yes Primary Surgeon HEATH ROBLEDO MD-PRO Start 08/04/21 16:03:00 Stop 08/04/21 18:13:00 Anesthesia Type General Specialty Colorectal Wound Class 2 - Clean-Contaminated Last Modified By: Halima Mccoy RN 08/04/21 18:18:15 [facility] IntraOp Surgical Procedures Audit 08/04/21 18:18:15 Choir Leader: [id number] Modifier: [id number] <+> 1 Stop 08/04/21 17:36:41 Choir Leader: [id number] Modifier: [id number] 1 <*> Procedure Colectomy 1 <*> Additional Procedure Description SUBTOTAL COLECTOMY/ ILEORECTAL ANASTOMOSIS [facility] IntraOp Temp Regulation Devices Entry 1 Temp Regulation Temperature Forced Air Warming Regulation Device device, Irrigation solution warmer, Warm blankets, Room temperature Temperature Upper body Regulation Site Temperature Device SET AND MONITORED BY Setting ANESTHESIA Temperature ABBIE RACHEL APRN, Regulation Device COMMERCIAL ENGINEER Applied by Last Modified By: Halima Mccoy RN 08/04/21 16:26:34 [facility] IntraOP Time Out Entry 1 Procedure to be Colectomy Performed Time Out Time Out Pause Time 08/04/21 16:02:00 All activity Yes suspended (unless life threatening emergency) Team Verbally Correct patient Confirms Information identity, Correct side and site are marked, Consent form is present and accurate, Agreement on the procedure to be done, Correct patient position, Confirm antibiotics have been administered, Confirm the skin prep has dried, Confirm prosthesis/implant/devic e is present, Performed in location of procedure after prepped/draped, Reconcile problems if responses among team members differ Antibiotic Yes Prophylaxis Administered Or In Progress Within the Last 60 Minutes Beta Rod Yes Administered Venous Yes Thromboembolism Prophylaxis Required Anticipated Critical Events Surgeon None expected Anesthesia Provider None expected Nursing Assures Sterility of instruments Essential Imaging N/A Labeled and Displayed Last Modified By: Halima Mccoy RN 08/04/21 16:27:02 Case Comments <None> Finalized By: MI HOLT Document Signatures Signed By: Halima Mccoy RN 08/04/21 18:22 MI HOLT 08/05/21 11:08 Unfinalized History Date/Time Username Reason for Unfinalizing Freetext Reason for Unfinalizing 08/05/21 11:07 LADI Correct Billing documented in this encounter Plan of Treatment Upcoming Encounters Date Type Department Care Team (Late st Contact Info) Description 07/17/2024 11:00 AM EDT Appointment [facility] Wound & Ostomy Therapy [address] [place] [address] 08/28/2024 9:15 AM EDT Office Visit [facility] Urology - [address] [place] [address] Chandrika Santana, BINDERY MACHINE SETTER/SET UP OPERATOR [address] [place] [address] 04/17/2025 8:30 AM EDT Office Visit [facility] Cardiology - [place] [place] [address] Tamara Sow PA-C [address] [facility] [address] [place] [address] documented as of this encounter Visit Diagnoses Not on filedocumented in this encounter Care Teams Gore Cutter Relationship Specialty Start Date End Date Liliam Lopez APRN PCP - General Nurse Practitioner 04/18/22 06/03/24 Liliam Lopez, BINDERY MACHINE SETTER/SET UP OPERATOR [address] [place] [address] PCP - General Nurse Practitioner 06/04/24 documented as of this encounter
--- OUTSIDE RECORDS SUMMARY | 2024-07-16 15:13 | XMS_ITS | Encounter Summary ---
Author Organization [facility] In iatives Address [address] [place] [address] Care Team Providers Care Supervisory Investigative Specialist Name Role Phone Deandra Lopez APRN Primary Care Provider +1- [phone] Deandra Lopez APRN Primary Care Provider +1- [phone] Encounter Details Date Type Department Care Team (Late st Contact Info) Description 08/23/[address] [facility] Family Medicine [place] [address] ProviderElaine MD [address] [place] [address] [phone] Social History Tobacco Use Types Packs/Day Years [...] Cerner Conversion Note - Historical ProviderMD - 08/23/2021 11:14 AM CDT Patient: DEMETRA MARTINEZ Age: 41 years Sex: Female : 1980 Associated Diagnoses: None Author: TERESA ALEXANDER MD-INF ID Progress Note Referring Provider: Dr Abhijeet Tejeda MD: Teresa Alexander MD Admit Date 08/20/2021 23:54 Date of consultation: 08/22/21 I was not notified of this consult until 08/21 at 12:46 PM by the community health nurse staff. Reason for consultation: abdominal abscess CC: abdominal [...] up to 102. CT scan done at [facility] with evidence of intra-abdominal abscess. WBC 13,000. Transferred to [facility] for IR evaluation. On 08/21 she underwent IR guided aspiration of abdominal abscess. 10 mL of purulent fluid was obtained and 2 drains placed. Cultures pending with GPC on gram stain. Started on Zosyn and infectious disease consulted 08/22/2021: Afebrile overnight. Stable. Tolerating Zosyn. Abdominal pain much improved after drain placement 08/23/21: Still having 1 to 200 mL out from drains overnight, although patient thinks drain output is slowing. Abdomen much less tender. Tolerating oral intake. PICC line placed this morning. ROS: Afebrile. Hemodynamically stable. No rash, diarrhea, infusion site reactions. AllergiesAllergies (5) Active Reaction Imitrex rapid heart rate oral steroids skin rash predniSONE Hives to oral prednisone pseudoephedrine-triprolidine dizziness Sudafed rapid heart rate, dizziness Medications by Classification Antimicrobials ertapenem - 1 Gram, IV Piggyback, Inj, [id number], infuse over 30 Minute(s), Routine Anticoagulant alteplase + sterile water 1 mL (Cathflo Activase + sterile w - 1 mg, IV Push, Inj, 1-Time, PRN for Other (See Comment), Routine heparin - 5,000 Units, SubCutaneous, Inj, Q8HInt, Routine Cardiovascular prazosin - 2 mg, Oral, Cap, QAM, Routine prazosin - 8 mg, Oral, Cap, At Bedtime, Routine atorvastatin (Lipitor) - 80 mg, Oral, Tab, At Bedtime, Routine GI ondansetron (Zofran) - 4 mg, IV Push, Inj, Q4H, PRN for Nausea/Vomiting, Routine pantoprazole (Protonix) - 40 mg, Oral, EC [...] Oral, Tab, QAM, Routine Pain Meds acetaminophen-hydrocodone ([place] 5 mg-325 mg oral tablet) - 1 Tab, Oral, Tab, Q6H, PRN for Pain (Moderate 4-6), Routine acetaminophen - 650 mg, Oral, Tab, Q6H, PRN for Pain (Mild 1-3), Routine Sedatives ALPRAZolam (Xanax) - 1 mg, Oral, Tab, TID, Routine busPIRone (BuSpar) - 10 mg, Oral, Tab, TID, Routine Vitamins sodium chloride (Normal Saline Flush) - 10 mL, IntraCATHeter, Inj, Q12H, Routine Undefined Medications glucagon - 1 mg, IntraMuscular, Inj, Q15Min, PRN for Other (See Comment), Routine Physical Examination:Vitals Signs (last 24 hrs) Last Charted Minimum Maximum Temp 97.8 (AUG 23 10:19) 97.8 (AUG 23 10:19) 98.1 (AUG 22 14:49) Mon HR 89 (AUG 23 10:19) 82 (AUG 23 06:26) 99 (AUG 22 21:50) Resp Rate 15 (AUG 23:) 15 (AUG 23 06:26) 18 (AUG 22 18:15) SBP 139 (AUG 23 10:) 104 (AUG 22 18:15) 139 (AUG 23 10:19) DBP 80 (AUG 23 10:19) L 55 (AUG 23 06:) 80 (AUG 23 10:19) MAP 97 (AUG 23:) 70 (AUG 23:26) 97 (AUG 23 10:19) SpO2 L 92 (AUG 23:) L 92 (AUG 23 10:19) 97 (AUG 22 20:15) General: Awake, no acute distress. non-toxic Eye: [...] deficits Psychiatric: Cooperative, appropriate mood and affect PICC in [facility] Labs:Labs (Last four charted values) WBC 6.3 (AUG 23) 8.9 (AUG 22) H 11.7 (AUG 21) HB L 8.8 (AUG 23) L 8.5 (AUG 22) L 9.0 (AUG 21) HCT L 27.2 (AUG 23) L 26.7 (AUG 22) L 27.3 (AUG 21) Plt H 448 (AUG 23) H 427 (AUG 22) H 479 (AUG 21) Na 137 (AUG 18) L 134 (AUG 17) L 135 (AUG 21) L 133 (AUG 21) K C 2.8 (AUG 23) L 2.9 (AUG 17) L 3.0 (AUG 21) L 2.9 (AUG 21) Cl 103 (AUG 23) L 101 (AUG 17) L 99 (AUG 21) L 97 (AUG 16) CO2 28 (AUG 18) 26 (AUG 17) 27 (AUG 21) 26 (AUG 21) BUN L 2 (AUG 23) L 4 (AUG 22) L 4 (AUG 21) L 4 (AUG 21) Cr 0.70 (AUG 23) 0.60 (AUG 17) 0.80 (AUG 21) 0.80 (AUG 21) Glu R 91 (AUG 23) 98 (AUG 22) H 113 (AUG 21) H 127 (AUG 21) Ca L 7.9 (AUG 23) L 7.8 (AUG 22) L 8.0 (AUG 21) L 8.0 (AUG 21) AST H 77 (AUG 23) H 45 (AUG 21) ALT 38 (AUG 23) 26 (AUG 21) ALK P H 208 (AUG 23) H 223 (AUG 21) T Bili 0.5 (AUG 23) 0.5 (AUG 21) PTN L 6.0 (AUG 23) 6.8 (AUG 21) ALB L 1.6 (AUG 23) L 2.0 (AUG 21) Creatinine Clearance (Current Encounter/Past 24 Hours) Creatinine Level 0.70 mg/dL 08/23/2021 06:50 Bun/Creatinine 2.9 LOW 08/23/2021 07:39 Estimated Creatinine Clearance 94.21 mL/Min 08/23/2021 06:50 Microbiology: 08/21 blood cultures pending thus far negative 08/21 abdominal abscess drain cultures with GPC on gram stain, culture polymicrobial with at least 2 gram-negative's (likely E coli and Klebsiella) and 2 gram positives per lab Radiology: Radiology Results (Last 48 hours) [id number] -- 08/20/2021 23:54 CT Drainage Peritoneal (08/21/2021 13:35) Result: CT GUIDED DRAIN PLACEMENTHISTORY: Right abdominal fluid collection.ATTENDING PHYSICIAN: Dr. Berger FOUNDRY FINISHER: MICHELLE Espinal-CPROCEDURE: After informed consent was obtained and a timeout wasperformed, the patient was prepped and draped in usual sterile fashionover the right abdomen. Utilizing local anesthesia and sterile techniquewith a catheter access needle, access to the fluid collection wasobtained. An Amplatz wire was placed. Serial dilatation was performed. A10 [place] pigtail catheter was placed, looped within the [...] personally viewed, interpreted and dictated the examination. Ihabel read and agree with the above final transcribed report. CT Drainage Peritoneal (08/21/2021 13:36) Result: CT GUIDED DRAIN PLACEMENTHISTORY: Left abdominal fluid collection.ATTENDING PHYSICIAN: Dr. Berger FOUNDRY FINISHER: JENSEN EspinalCPROCEDURE: After informed consent was obtained and a timeout wasperformed, the patient was prepped and draped in usual sterile fashionover the left abdomen. Utilizing local anesthesia and sterile techniquewith a catheter access needle, access to the fluid collection wasobtained. An Amplatz wire was placed. Serial dilatation was performed. A10 [place] pigtail catheter was placed, looped within the [...] agree with the above final transcribed report. IMPRESSION: - Large polymicrobial intra-abdominal abscess: Complication of recent subtotal colectomy. Status post IR guided drainage on 08/21. Approx 1500 mL purulent output sofar. GPC on gram stain, culture polymicrobial with at least 2 gram-negative's (likely E coli and Klebsiella) and 2 gram positives per lab. Clinically improved after drainage. tolerating zosyn. - Neutrophilic leukocytosis: Related to above. Improved - Recent subtotal colectomy with ileorectal anastomosis by Dr. Diaz -History of colonic inertia - GERD - IBS - Obesity - Bipolar disorder - Type 2 diabetes RECOMMENDATIONS/PLANS: - Microbiology data reviewed. Called lab, see above. I discussed her complex case with Dr. Diaz. Also discussed with micro lab. Based on very large size of abscess and still pending culture results would prefer to discharge on IV antibiotics. PICC line placed this morning. Switch Zosyn to ertapenem. See below orders. Discussed with RN and case management. Patient is not sure if her insurance will cover home health so may have to dose at local hospital. Ok to discharge from my perspective once arrangements have been made Outpatient Orders: - IV ertapenem 1 gm daily via home infusion, home health or at local hospital. Tentative plan for 2 weeks through 09/04 - probiotic daily while on antibiotics - Weekly CBC with diff, CMP, ESR and CRP drawn every Monday and faxed to [facility] at [phone] atten - Change PICC dressing weekly with Biopatch or CHG dressing through home health or at local infusion center - Follow up in ID clinic with 08/26. [facility] staff will call her with exact appointment time. I spent greater than 35 minutes caring for the patient today with >50% of the time counseling and coordinating care. a documented in this encounter Plan of Treatment Upcoming Encounters Date Type Department Care Team (Late st Contact Info) Description 07/17/2024 11:00 AM EDT Appointment [facility] [address] [place] [address] 08/28/2024 9:15 AM EDT Office Visit [facility] Urology - [address] [place] [phone] Chandrika Santana, CHICKEN BONER [address] [place] [address] 04/17/2025 8:30 AM EDT Office Visit [facility] Cardiology - [place] [address] [place] [address] Tamara Sow PA-C [address] [place] [address] documented as of this encounter Visit Diagnoses Not on filedocumented in this encounter Care Teams Supervisory Investigative Specialist Relationship Specialty Start Date End Date Deandra Lopez APRN PCP - General Nurse Practitioner 04/18/22 06/03/24 Deandra Lopez, CHICKEN BONER [address] [place] [address] PCP - General Nurse Practitioner 06/04/24 documented as of this encounter
--- OUTSIDE RECORDS SUMMARY | 2024-07-16 15:13 | XMS_ITS | Encounter Summary ---
Author Organization [facility] In iatives Address [address] [place] [address] Care Team Providers Care Tip Banding Machine Operator Name Role Phone Deandra Lopez APRN Primary Care Provider +1- [phone] Deandra Lopez APRN Primary Care Provider +1- [phone] Encounter Details Date Type Department Care Team (Late st Contact Info) Description 08/23/2021 Transcribed Document [facility] Family Medicine [facility] [address] ProviderElaine MD [address] [place] [address] Social History Tobacco Use Types Packs/Day [...] Conversion Note - Historical ProviderMD - 08/23/2021 4:00 PM CDT Final Discharge Planning Entered On: 08/23/2021 16:04 EDT Performed On: 08/23/2021 16:00 EDT by Jagdish Jones, EVP CHIEF EXPLORATION OFFICER NON-EXEMPT Final Discharge Planning Discharge Arrangements : Patient Post-Acute Information Patient Name: DEMETRA MARTINEZ Gender: Female : [birth year] Age: 41 Years No Post-Acute Placement(s) Listed No Post-Acute Service(s) Listed No [place] Referral(s) Listed Patient Offered Choice/Affiliations Explained : Yes Designation of Choice Signed : Yes Transportation Needs : Family/Friend Discharge Transportation Arrangement Cmt : SO to transport & pt reports she can access private vehicle Follow Up Appointment Scheduled : Yes Is Patient High/Moderate Readmission Risk? : Yes High Readmission Risk - Home, no Home Health : Make post-discharge physician appointment within 72 hours of discharge Patient/Family Notified of Plan : Yes Support Person/Pt Rep Notified of Plan : Yes Patient/Family Notified : Yes Is Patient Ready for Discharge? : Yes Physician Notified Patient is Ready for Discharge? : Yes Discharge To Care Management : Home/Residential/Correction or Self Care - Jagdish Jones EVP CHIEF EXPLORATION OFFICER NON-EXEMPT - 08/23/2021 16:00 EDT Final Narrative Note Final Narrative Note : DC order Outpt infusions at [facility] starting tomorrow at 1000 Orders faxed to [facility] for infusions, labs & PICC care SO to transport HH could not be secured due to no agency in home area that takes insurance CM has cleared for DC Jagdish Jones EVP CHIEF EXPLORATION OFFICER NON-EXEMPT - 08/23/2021 16:00 EDT documented in this encounter Plan of Treatment Upcoming Encounters Date Type Department Care Team (Late st Contact Info) Description 07/17/2024 11:00 AM EDT Appointment [facility] Therapy [address] [place] [address] 08/28/2024 9:15 AM EDT Office Visit [facility] Urology - [address] [place] [address] Chandrika Santana, HOG COOLER [address] [place] [address] 04/17/2025 8:30 AM EDT Office Visit [facility] Cardiology - [place] [address] [place] [address] Tamara Sow PA-C [address] [address] documented as of this encounter Visit Diagnoses Not on filedocumented in this encounter Care Teams Tip Banding Machine Operator Relationship Specialty Start Date End Date Deandra Lopez APRN PCP - General Nurse Practitioner 04/18/22 06/03/24 Deandra Lopez, HOG COOLER [address] [place] [address] PCP - General Nurse Practitioner 06/04/24 documented as of this encounter
--- OUTSIDE RECORDS SUMMARY | 2024-07-16 15:13 | XMS_ITS | Encounter Summary ---
Author Organization [facility] In iatives Address [address] [place] [address] Care Team Providers Care Vp Project Name Role Phone Deandra Lopez APRN Primary Care Provider +1- [phone] Deandra Lopez APRN Primary Care Provider +1- [phone] Encounter Details Date Type Department Care Team (Late st Contact Info) Description 08/05/[address] [facility] Family Medicine [facility] [address] ProviderElaine MD [address] [place] [address] Social History Tobacco Use Types [...] Conversion Note - Historical ProviderMD - 08/05/2021 5:00 PM CDT Chart Check - Review Order Profile Entered On: 08/05/2021 16:15 EDT Performed On: 08/05/2021 17:00 EDT by JENNY CHRISTINA, RN Chart Check Powerplans Initiated/Discontinued as Appropriate : Yes All Active Orders Reviewed : Yes JENNY CHRISTINA, RN - 08/05/2021 16:15 EDT Electronically signed by Anahy [facility] Conversion Switchboard Wire Worker Helper Cerner at 05/27/2022 4:39 PM CDT documented in this encounter Plan of Treatment Upcoming Encounters Date Type Department Care Team (Late st Contact Info) Description 07/17/2024 11:00 AM EDT Appointment [facility] Therapy [address] [place] [address] 08/28/2024 9:15 AM EDT Office Visit [facility] Urology - [address] [place] [address] Chandrika Santana, CAN TECHNICIAN [address] [place] [address] 04/17/2025 8:30 AM EDT Office Visit [facility] Cardiology - [place] [address] [place] [address] Tamara Sow PA-C [address] [facility] [address] [place] [address] documented as of this encounter Visit Diagnoses Not on filedocumented in this encounter Care Teams Vp Project Relationship Specialty Start Date End Date Deandra Lopez, KRISTYN PCP - General Nurse Practitioner 04/18/22 06/03/24 Deandra Lopez, CAN TECHNICIAN [address] [place] [address] PCP - General Nurse Practitioner 06/04/24 documented as of this encounter
--- OUTSIDE RECORDS SUMMARY | 2024-07-16 15:13 | XMS_ITS | Encounter Summary ---
Author Organization [facility] In iatives Address [address] [place] [address] Care Team Providers Care Electrical And Radio Mock Up Mechanic Name Role Phone Deandra Lopez APRN Primary Care Provider +1- [phone] Deandra Lopez APRN Primary Care Provider +1- [phone] Encounter Details Date Type Department Care Team (Late st Contact Info) Description 08/23/2021 Transcribed Document [facility] Family [place] [facility] [place] [address] ProviderElaine MD [address] [place] [phone] Social History Tobacco Use Types Packs/Day Years [...] Conversion Note - Historical ProviderMD - 08/23/2021 4:57 PM CDT Nursing Discharge Summary Entered On: 08/23/2021 16:58 EDT Performed On: 08/23/2021 16:57 EDT by Nubia Loving RN Discharge Documentation Discharge Date/Time : 08/23/2021 16:57 EDT Patient Disposition, General : Discharge Discharge To : Home with hospice Mode Of Departure, General Discharge : Wheelchair Accompanied By, Discharge : Spouse IV Discontinued : Yes Personal Belongings With Patient : Yes Medications Given to Patient : Yes Discharge Instructions Reviewed With, Opportunity For Questions Given : Patient, Spouse Patient Education Completed : Yes Teaching Method : Explanation, Printed materials Teaching Evaluation : Verbalizes understanding Education Comment : Pt v/u MILLI, Reginaldo Sultana Michelle, RN - 08/23/2021 16:57 EDT Electronically signed by Sean Higginbotham Conversion [place] Program Coordinator Cerner at 05/27/2022 4:38 PM CDT documented in this encounter Plan of Treatment Upcoming Encounters Date Type Department Care Team (Late st Contact Info) Description 07/17/2024 11:00 AM EDT Appointment [facility] Ostomy Therapy [address] [place] [address] 08/28/2024 9:15 AM EDT Office Visit [facility] Urology - [address] [place] [address] Chandrika Santana, STOREKEEPER STEWARD [address] [place] [address] 04/17/2025 8:30 AM EDT Office Visit [facility] Cardiology - [place] [address] [place] [address] Tamara Sow PA-C [address] [facility] [address] [place] [address] documented as of this encounter Visit Diagnoses Not on filedocumented in this encounter Care Teams Electrical And Radio Mock Up Mechanic Relationship Specialty Start Date End Date Deandra Lopez APRN PCP - General Nurse Practitioner 04/18/22 06/03/24 Deandra Lopez, STOREKEEPER STEWARD [address] [place] [address] PCP - General Nurse Practitioner 06/04/24 documented as of this encounter
--- OUTSIDE RECORDS SUMMARY | 2024-07-16 15:13 | XMS_ITS | Encounter Summary ---
Author Organization [facility] Address [address] [place] [address] Care Team Providers Care Broiler Manager Name Role Phone Deandra Lopez APRN Primary Care Provider +1- [phone] Deandra Lopez APRN Primary Care Provider +1- [phone] Encounter Details Date Type Department Care Team (Late st Contact Info) Description 08/05/2021 Transcribed Document [facility] [place] [facility] [place] [address] ProviderElaine MD [address] [place] [address] Social History Tobacco Use Types [...] Conversion Note - Historical ProviderMD - 08/05/2021 4:51 PM CDT Patient: DEMETRA MARTINEZ Age: 41 Years Sex: Female : 1980 Subjective Had episode of vomiting last night, still some abdominal cramps/spasm. She has not passed gas. Able to tolerate liquid intake. Vital Signs T: 36.9 ??C TMIN: 36.2 ??C TMAX: 37.2 ??C HR: 78(Monitored) RR: 19 BP: 107/52 SpO2: 96% HT: 164.47 cm WT: 110 kg BMI: 40.7 Oxygen Settings (Last) Oxygen Therapy Mode: Room air (08/05/21 16:00:00) Oxygen Flow Rate: 0 Liter/Min (08/04/21 22:00:00) Intake & Output Totals Last 24 Hours (7a-7a) Input Total: 2897.5 mL Output Total: 1690 mL Balance: 1207.5 mL Physical Exam General: Alert, obese, no acute distress Neurologic: Moves all 4 extremities spontaneously, oriented X3, no focal deficits appreciated Lungs: Clear to auscultation, non-labored respiration, no crackles, no wheeze Heart: Normal rate, regular rhythm, no murmur, no edema Abdomen: Soft, TTP, non-distended, normal bowel sounds Musculoskeletal: No obvious deformity, no tenderness Skin: warm, dry, no rashes or lesions Psychiatric: Cooperative, appropriate mood and affect Assessment/Plan #Chronic constipation s/p partial colectomy with ileorectal anastomosis POD 1 Advance diet, Lopes catheter removed, encourage ambulation Await return of bowel function Colorectal surgery following #Diabetes Hold home meds, cover with SSI #Bipolar depression Continue prazosin, Vraylar, Xanax,, Lamictal #Hypothyroidism Synthroid Disposition: Awaiting return of bowel function. Okay to discharge from medicine stand point once cleared by surgeon, hopefully tomorrow VTE Prophylaxis - Medical Heparin 5,000 Units, SubCutaneous, Inj, Q8H, Routine, Start 08/04/21 22:00:00 EDT, 08/04/21 18:36:00 EDT (HEATH ROBLEDO) Sequential Compression Device Start: 08/04/21 21:12:00 EDT, Bilateral, Length: Knee High, While patient is in bed, Continuous Order (SHELLIE CANALES) Medications acetaminophen, 1000 mg= 2 Tab, Oral, Q6H alvimopan, 12 mg= 1 Cap, Oral, BID BuSpar, 10 mg= 1 Tab, Oral, TID cloNIDine 50 mcg + dexAMETHasone 4 mg + bupivacaine 0.25% injectable solution 28.35 mL + EPINEPHrin cloNIDine 50 mcg + dexAMETHasone 4 mg + bupivacaine 0.25% injectable solution 28.35 mL + EPINEPHrin Dextrose 5% with 0.45% NaCl and KCl 20 mEq/L 1,000 mL, 1000 mL, IntraVENous Dextrose 50% injection, 25 Gram= 50 mL, IV Push, Q15Min, PRN Dextrose 50% injection, 25 Gram= 50 mL, IV Push, Q15Min, PRN Dextrose 50% injection, 25 Gram= 50 mL, IV Push, Q15Min, PRN Dextrose 50% injection, 12.5 Gram= 25 mL, IV Push, Q15Min, PRN diazePAM, 5 mg= 1 mL, IV Push, Q6H, PRN estradiol, 2 mg= 2 Tab, Oral, Daily glucagon, 1 mg= 1 mL, IntraMuscular, Q15Min, PRN glucose 4 g oral tablet, chewable, 16 Gram= 4 Tab, Chew, Q15Min, PRN glucose 40% oral gel, 15 Gram= 37.5 mL, Oral, Q15Min, PRN heparin, 5000 Units= 1 mL, SubCutaneous, Q8H hydrALAZINE, 10 mg= 0.5 mL, IV Push, Q6H, PRN Imdur, 30 mg= 1 Tab, Oral, QAM insulin lispro sliding scale, Scale A:, SubCutaneous, AC and at Bedtime ketorolac, 15 mg= 0.5 mL, IV Push, Q6H labetalol, 10 mg= 2 mL, IV Push, Q6H, PRN lamoTRIgine, 100 mg= 1 Tab, Oral, BID levothyroxine, 125 mcg= 1 Tab, Oral, Daily Lipitor, 80 mg= 2 Tab, Oral, At Bedtime Melatonin, 3 mg= 1 Tab, Oral, At Bedtime metoprolol tartrate, 75 mg= 3 Tab, Oral, BID morphine, 2 mg= 1 mL, IV Push, Q2H, PRN Myrbetriq, 50 mg= 2 Tab, Oral, Daily ondansetron, 4 mg= 2 mL, IV Push, Q6H, PRN oxyCODONE, 5 mg= 1 Tab, Oral, Q6H, PRN pantoprazole, 40 mg, IV Push, Daily prazosin, 2 mg= 2 Cap, Oral, Daily prazosin, 8 mg= 8 Cap, Oral, At Bedtime Pristiq, 100 mg= 2 Tab, Oral, Daily Provigil, 200 mg= 1 Tab, Oral, QAM Vascepa, 1 Gm, Oral, Daily Vistaril, 50 mg= 2 Cap, Oral, TID Vitamin D2, 86312 Units= 1 Cap, Oral, Weekly Vraylar, 3 mg= 2 Cap, Oral, Daily Xanax, 1 mg= 2 Tab, Oral, TID Lab Results Test Name Test Result Date/Time Sodium Level 137 mmol/L 08/05/2021 06:12 EDT Potassium Level 4.5 mmol/L 08/05/2021 06:12 EDT Chloride Level 107 mmol/L 08/05/2021 06:12 EDT Carbon Dioxide Level 24 mmol/L 08/05/2021 06:12 EDT Anion Gap 10 08/05/2021 06:12 EDT Glucose Level 148 mg/dL (High) 08/05/2021 06:12 EDT Blood Urea Nitrogen 7 mg/dL 08/05/2021 06:12 EDT Creatinine Level 0.90 mg/dL 08/05/2021 06:12 EDT eGFR >60 mL/min/1.73m2 08/05/2021 06:12 EDT eGFR NonAfrican >60 mL/min/1.73m2 08/05/2021 06:12 EDT Bun/Creatinine 7.8 (Low) 08/05/2021 06:12 EDT Calcium Level 7.9 mg/dL (Low) 08/05/2021 06:12 EDT Magnesium Level 2.7 mg/dL (High) 08/05/2021 06:12 EDT Device Comment 1 Protocols Followed 08/05/2021 15:42 EDT Device Comment 1 Protocols Followed 08/05/2021 11:19 EDT Device Comment 1 Notified Nurse RBV 08/05/2021 05:45 EDT Device Comment 1 No action Require 08/04/2021 18:25 EDT Glucose POC2 137 mg/dL (High) 08/05/2021 15:42 EDT Glucose POC2 158 mg/dL (High) 08/05/2021 11:19 EDT Glucose POC2 146 mg/dL (High) 08/05/2021 05:45 EDT Glucose POC2 191 mg/dL (High) 08/04/2021 18:25 EDT WBC 10.8 K/uL (High) 08/05/2021 06:12 EDT RBC 3.98 Million/uL 08/05/2021 06:12 EDT Hgb 11.2 g/dL 08/05/2021 06:12 EDT Hct 34.0 % (Low) 08/05/2021 06:12 EDT MCV 85.4 fL 08/05/2021 06:12 EDT MCH 28.1 pg 08/05/2021 06:12 EDT MCHC 32.9 Gram/dL 08/05/2021 06:12 EDT Platelet Count 227 K/uL 08/05/2021 06:12 EDT MPV 9.3 fL (Low) 08/05/2021 06:12 EDT RDW 12.0 % 08/05/2021 06:12 EDT nRBC 0.020 (High) 08/05/2021 06:12 EDT Slide Review No 08/05/2021 06:12 EDT Electronically signed by Anahy [facility] Conversion Specimen Transporter Cerner at 05/27/2022 4:43 PM CDT documented in this encounter Plan of Treatment Upcoming Encounters Date Type Department Care Team (Late st Contact Info) Description 07/17/2024 11:00 AM EDT Appointment [facility] Wound & Ostomy Therapy [address] [place] [phone] 08/28/2024 9:15 AM EDT Office Visit [facility] - [address] [place] [address] Chandrika Santana, PLUNGER SCOOP OPERATOR [address] [place] [address] 04/17/2025 8:30 AM EDT Office Visit [facility] Cardiology - [place] [address] [place] [address] Tamara Sow PA-C 227 [facility] [address] [place] [address] documented as of this encounter Visit Diagnoses Not on filedocumented in this encounter Care Teams Broiler Manager Relationship Specialty Start Date End Date Deandra Lopez, PLUNGER SCOOP OPERATOR PCP - General Nurse Practitioner 04/18/22 06/03/24 Deandra Lopez, PLUNGER SCOOP OPERATOR [address] [place] [address] PCP - General Nurse Practitioner 06/04/24 documented as of this encounter
--- OUTSIDE RECORDS SUMMARY | 2024-07-16 15:13 | XMS_ITS | Encounter Summary ---
Author Organization [facility] Address [address] [place] [address] Care Team Providers Care Tire Room Supervisor Name Role Phone Deandra Lopez APRN Primary Care Provider +1- [phone] Deandra Lopez APRN Primary Care Provider +1- [phone] Encounter Details Date Type Department Care Team (Late st Contact Info) Description 08/05/2021 Transcribed Document [facility] Medicine [facility] [place] [address] ProviderElaine MD [address] [place], [place] [id number] Social History Tobacco Use Types Packs/Day Years [...] Conversion Note - Historical ProviderMD - 08/05/2021 11:29 AM CDT UM Authorization Entered On: 08/05/2021 11:32 EDT Performed On: 08/05/2021 11:29 EDT by AKBAR GUERIN, RAYSA-UTILIZATION MANAGEMENT REVIEW NON-EXEMPT Primary Insurance Authorization Authorization and Policy Numbers : Insurance 1 Health Plan: [facility] Policy Number: [id number] Authorization Number: [id number] Insurance Primary Name : [facility] [id number] Authorization Status-Primary : Admit approved Authorization Number-Primary : [id number] Authorized Service Begin Date-Primary : 08/04/2021 EDT Authorization Comments-Primary : inpt clinicals faxed via [employer] 08/04-08/05 Historical Authorization Comments-Primary : Comment 1: sunshine LY [facility] approved INPT auth# [id number] no los was noted (TYREL SALDANA, Consumer Services Advisor 08/03/2021 11:56) AKBAR GUERIN RN-UTILIZATION MANAGEMENT REVIEW NON-EXEMPT - 08/05/2021 11:29 EDT Electronically signed by Anahy [facility] Conversion Carbon Printer Cerner at 05/27/2022 4:38 PM CDT documented in this encounter Plan of Treatment Upcoming Encounters Date Type Department Care Team (Late st Contact Info) Description 07/17/2024 11:00 AM EDT Appointment [facility] Wound & Ostomy Therapy [address] [place] [address] 08/28/2024 9:15 AM EDT Office Visit [facility] Urology - [address] [place] [address] Chandrika Santana, LICENSED MASTER SOCIAL WORKER [address] [place] [address] 04/17/2025 8:30 AM EDT Office Visit [facility] Cardiology - [place] [address] [place] [address] Tamara Sow PA-C 227 [facility] [address] [place] [address] documented as of this encounter Visit Diagnoses Not on filedocumented in this encounter Care Teams Tire Room Supervisor Relationship Specialty Start Date End Date Deandra Lopez APRN PCP - General Nurse Practitioner 04/18/22 06/03/24 Deandra Lopez, LICENSED MASTER SOCIAL WORKER [address] [place] [address] PCP - General Nurse Practitioner 06/04/24 documented as of this encounter
--- OUTSIDE RECORDS SUMMARY | 2024-07-16 15:13 | XMS_ITS | Encounter Summary ---
Author Organization [facility] In iatives Address [address] [place] [address] Care Team Providers Care Zoning Engineer Name Role Phone Deandra Lopez APRN Primary Care Provider +1- [phone] Deandra Lopez APRN Primary Care Provider +1- [phone] Encounter Details Date Type Department Care Team (Late st Contact Info) Description 08/23/2021 Transcribed Document [facility] Family [place] [address] ProviderElaine MD [address] [place] [id number] Social History Tobacco Use Types Packs/Day Years [...] Conversion Note - Historical ProviderMD - 08/23/2021 4:08 PM CDT Stroke/Warfarin Instructions Entered On: 08/23/2021 16:08 EDT Performed On: 08/23/2021 16:08 EDT by Nubia Loving RN Stroke/Warfarin Instructions Stroke/TIA Discharge Ins : N/A Warfarin Discharge Ins : N/A Nubia Loving RN - 08/23/2021 16:08 EDT Electronically signed by Anahy [facility] Conversion Retail Customer Service Specialist Cerner at 05/27/2022 4:47 PM CDT documented in this encounter Plan of Treatment Upcoming Encounters Date Type Department Care Team (Late st Contact Info) Description 07/17/2024 11:00 AM EDT Appointment [facility] Wound & Ostomy Therapy [address] [place] [address] 08/28/2024 9:15 AM EDT Office Visit [facility] Urology - [address] [place] [address] Chandrika Santana, BRANCH OR DEPARTMENT CHIEF LIBRARIAN [address] [place] [address] 04/17/2025 8:30 AM EDT Office Visit [facility] Cardiology - [place] [address] [place] [address] Tamara Sow PA-C [address] [facility] [address] [place] [address] documented as of this encounter Visit Diagnoses Not on filedocumented in this encounter Care Teams Zoning Engineer Relationship Specialty Start Date End Date Deandra Lopez, KRISTYN PCP - General Nurse Practitioner 04/18/22 06/03/24 Deandra Lopez, BRANCH OR DEPARTMENT CHIEF LIBRARIAN [address] [place] [address] PCP - General Nurse Practitioner 06/04/24 documented as of this encounter
--- OUTSIDE RECORDS SUMMARY | 2024-07-16 15:13 | XMS_ITS | Encounter Summary ---
Author Organization [facility] In iatives Address [address] [place] [address] Care Team Providers Care Hydroelectric Plant Electrical Engineer Name Role Phone Deandra Lopez APRN Primary Care Provider +1- [phone] Deandra Lopez APRN Primary Care Provider +1- [phone] Encounter Details Date Type Department Care Team (Late st Contact Info) Description 08/05/2021 Transcribed Document [facility] [place] [address] ProviderElaine MD [address] [place], [place] [phone] Social History Tobacco Use Types Packs/Day Years [...] Note - Historical ProviderMD - 08/05/2021 12:00 PM CDT Pain Assessment Entered On: 08/05/2021 15:58 EDT Performed On: 08/05/2021 13:21 EDT by JENNY CHRISTINA RN Intervention Information: acetaminophen Performed by JENNY CHRISTINA RN on 08/05/2021 12:21:00 EDT acetaminophen,1000mg Oral Pain Assessment Pain Assessment : Follow-up assessment Pain Scale Goal : 4 Pain Scale Used : 0-10 Scale JENNY CHRISTINA RN - 08/05/2021 15:58 EDT Pain Scale Intensity : 6 JENNY CHRISTINA RN - 08/05/2021 15:58 EDT Image 4 - Images currently included in the form version of this document have not been included in the text rendition version of the form. Electronically signed by Ganesh Higginbotham Conversion Podiatric Medicine Professor Cerner at 05/27/2022 4:42 PM CDT documented in this encounter Plan of Treatment Upcoming Encounters Date Type Department Care Team (Late st Contact Info) Description 07/17/2024 11:00 AM EDT Appointment [facility] Wound & Ostomy Therapy [address] [place] [address] 08/28/2024 9:15 AM EDT Office Visit [facility] Urology - [address] [place] [address] Chandrika Santana, PHARMACY COORDINATOR [address] [place] [address] 04/17/2025 8:30 AM EDT Office Visit [facility] Cardiology - [place] [address] [place] [address] Tamara Sow PA-C [address] [address] documented as of this encounter Visit Diagnoses Not on filedocumented in this encounter Care Teams Hydroelectric Plant Electrical Engineer Relationship Specialty Start Date End Date Deandra Lopez APRN PCP - General Nurse Practitioner 04/18/22 06/03/24 Deandra Lopez, PHARMACY COORDINATOR [address] [place] [address] PCP - General Nurse Practitioner 06/04/24 documented as of this encounter
--- OUTSIDE RECORDS SUMMARY | 2024-07-16 15:13 | XMS_ITS | Encounter Summary ---
Author Organization [facility] Init iatives Address [address] [place] [address] Care Team Providers Care Learning Support Assistant Name Role Phone Deandra Lopez APRN Primary Care Provider +1- [phone] Deandra Lopez APRN Primary Care Provider +1- [phone] Encounter Details Date Type Department Care Team (Late st Contact Info) Description 08/05/2021 Transcribed Document [facility] [place] [facility] [place] [address] ProviderElaine MD [address] [place], [place] [phone] Social History Tobacco Use Types Packs/Day Years [...] Conversion Note - Historical ProviderMD - 08/05/2021 11:25 AM CDT UM Authorization Entered On: 08/05/2021 11:25 EDT Performed On: 08/05/2021 11:25 EDT by AKBAR GUERIN, RAYSA-UTILIZATION MANAGEMENT REVIEW NON-EXEMPT Primary Insurance Authorization Authorization and Policy Numbers : Insurance 1 Health Plan: [facility] Policy Number: [id number] Authorization Number: [id number] Insurance Primary Name : [facility] [id number] Authorization Status-Primary : Admit approved Authorization Number-Primary : [id number] Authorized Service Begin Date-Primary : 08/04/2021 EDT Historical Authorization Comments-Primary : Comment 1: sunshine LY [facility] approved INPT auth# [id number] no los was noted (TYREL SALDANA, Solution Spec 08/03/2021 11:56) AKBAR GUERIN RN-UTILIZATION MANAGEMENT REVIEW NON-EXEMPT - 08/05/2021 11:25 EDT Electronically signed by Ganesh Higginbotham Conversion Outpatient Facility Physical Therapist Cerner at 05/27/2022 4:50 PM CDT documented in this encounter Plan of Treatment Upcoming Encounters Date Type Department Care Team (Late st Contact Info) Description 07/17/2024 11:00 AM EDT Appointment [facility] Wound & Ostomy Therapy [address] [place] [address] 08/28/2024 9:15 AM EDT Office Visit [facility] Urology - [facility] [address] [facility] [address] [place] [address] Chandrika Santana, CARTRIDGE MAKER [address] [place] [address] 04/17/2025 8:30 AM EDT Office Visit [facility] Cardiology - [place] [address] [place] [address] Tamara Sow PA-C 227 [facility] [address] [place] [address] documented as of this encounter Visit Diagnoses Not on filedocumented in this encounter Care Teams Learning Support Assistant Relationship Specialty Start Date End Date Deandra Lopez APRN PCP - General Nurse Practitioner 04/18/22 06/03/24 Deandra Lopez, CARTRIDGE MAKER [address] [place] [address] PCP - General Nurse Practitioner 06/04/24 documented as of this encounter
--- OUTSIDE RECORDS SUMMARY | 2024-07-16 15:13 | XMS_ITS | Encounter Summary ---
Author Organization [facility] In iatives Address [address] [place] [address] Care Team Providers Care Stenciling Machine Tender Name Role Phone Deandra Lopez APRN Primary Care Provider +1- [phone] Deandra Lopez APRN Primary Care Provider +1- [phone] Encounter Details Date Type Department Care Team (Late st Contact Info) Description 08/23/2021 Transcribed Document [facility] [place] [facility] [place] [address] ProviderElaine MD [address] [place] [id number] Social History Tobacco Use Types Packs/Day Years [...] Conversion Note - Historical ProviderMD - 08/23/2021 9:20 AM CDT Central Line Checklist Entered On: 08/23/2021 9:26 EDT Performed On: 08/23/2021 9:20 EDT by America Jc RN Central Line Checklist History and Physical on Chart : Yes Central Line Insertion Facility : [facility] Central Line Insertion Start Date/Time : 08/23/2021 9:12 EDT Central Catheter Type : Power injection PICC Central Line Lot Number : [id number] Central Line Vessel Cannulated : Basilic vein Central Line Laterality : Left Central Line Number of Lumens : 1 Central Line Insertion Site : Upper arm, left Central Line Insertion Reason : New indication PICC Line Exclusion Criteria : None CL Number of Insertion Attempts: : 1 Modified Seldinger Used : Yes Portable Ultrasound Device : Yes Central Line Clean Hands : Yes Site Preparation Procedure : Chlorhexidine (Chloraprep) if patient is 2 months or older, 30 second scrub plus 30 second dry time Central IV Full Body Drape Used : Yes Proper Use of Sterile Apparel per Policy : Yes Procedure to be Performed : PICC line placement Time Out Pause Time : 08/23/2021 9:10 EDT All Activity Suspended : Yes Team Verbally Confirms Information : Correct patient identity, Correct side and site are marked, Consent form is present and accurate, Agreement on the procedure to be done, Correct patient position, Relevant images/results properly labeled/appropriately displayed, Confirm the skin prep has dried, Performed in location of procedure after prepped/draped CL Time Out Additional Attendees : America Loving RN 1% Lidocaine Amt Used as Anesthetic : 3 mL Central IV Sterile Field Maintained : Yes Central IV Sterile Technique Maintained : Yes Central Line Secure with : Stabilization device Central Line Dressing Dated : Yes RN Notified CL is Approved to be Used : Yes Central Line Tip Location in SVC : Yes Nurse Notified Name : Nubia Loving RN Svetich, Patty Y, RN - 08/23/2021 9:20 EDT Electronically signed by Anahy [facility] Conversion Architecture Instructor Cerner at 05/27/2022 4:50 PM CDT documented in this encounter Plan of Treatment Upcoming Encounters Date Type Department Care Team (Late st Contact Info) Description 07/17/2024 11:00 AM EDT Appointment [facility] [place] Wound & Ostomy Therapy 1 [place] [address] 08/28/2024 9:15 AM EDT Office Visit [facility] Urology - [address] [place] [address] Chandrika Santana, PAD ASSEMBLER [address] [place] [address] 04/17/2025 8:30 AM EDT Office Visit [facility] Cardiology - [place] [address] [place] [address] Tamara Sow PA-C 227 [facility] [address] [place] [address] documented as of this encounter Visit Diagnoses Not on filedocumented in this encounter Care Teams Stenciling Machine Tender Relationship Specialty Start Date End Date Deandra Lopez APRN PCP - General Nurse Practitioner 04/18/22 06/03/24 Deandra Lopez, KRISTYN [address] [place] [address] PCP - General Nurse Practitioner 06/04/24 documented as of this encounter
--- OUTSIDE RECORDS SUMMARY | 2024-07-16 15:13 | XMS_ITS | Encounter Summary ---
Author Organization [facility] Address [address] [place] [address] Care Team Providers Care Stationary Engineer Refrigeration Name Role Phone Deandra Lopez APRN Primary Care Provider +1- [phone] Deandra Lopez APRN Primary Care Provider +1- [phone] Encounter Details Date Type Department Care Team (Late st Contact Info) Description 08/04/2021 Transcribed Document [facility] Family Medicine [facility] [place] [address] ProviderElaine MD [address] [place] [address] Social History Tobacco Use Types [...] Conversion Note - Historical ProviderMD - 08/04/2021 11:34 AM CDT Patient: DEMETRA MARTINEZ Age: 41 years Sex: Female : 1980 Associated Diagnoses: None Author: COMER, ADY Colón APRN Chief Complaint pleasant 41 yo female here with her S.O. for subtotal colectomy /ileorectal anastamosis with Dr. Diaz. pt has chronic constipation and has for 20 years. Review of Systems Constitutional: morbid obesity. Eye: glasses. Ear/Nose/Mouth/Throat: Negative. Respiratory: Negative. Cardiovascular: Negative. Gastrointestinal: Constipation. Genitourinary: Negative. Hematology/Lymphatics: Negative. Endocrine: Negative. Immunologic: Negative. Musculoskeletal: Negative. Integumentary: Negative. Neurologic: Negative. Psychiatric: Negative. All other systems are negative Health Status Allergies: Allergic Reactions (Selected) Severity Not Documented Imitrex- Rapid heart rate. Oral steroids- Rapid heart rate and skin rash. PredniSONE- Hives to oral prednisone. Pseudoephedrine-triprolidine- Rapid heart rapid and dizziness. Sudafed- Rapid heart rate, dizziness., Allergies (5) Active Reaction Imitrex rapid heart rate oral steroids skin rash predniSONE Hives to oral prednisone pseudoephedrine-triprolidine dizziness Sudafed rapid heart rate, dizziness Current medications: (Selected) Inpatient Medications Ordered INVanz: 1 Gram, 100 mL/Hr, IV Piggyback, 1-Time Lactated Ringers Injection intravenous solution 1,000 mL: 20 mL/Hr, IntraVENous Lyrica: 75 mg, Oral, 1-Time Mobic: 15 mg, Oral, 1-Time acetaminophen: 1,000 mg, Oral, 1-Time, PRN: Other (See Comment) alvimopan: 12 mg, Oral, On-CALL fentaNYL: 50 mcg, IV Push, Q10Min, PRN: Pain heparin: 5,000 Units, SubCutaneous, 1-Time midazolam: 2 mg, IV Push, Q10Min, PRN: Anxiety scopolamine: 1.5 mg, TransDermal, 1-Time Documented Medications Documented BuSpar: 10 mg, Oral, TID, 0 Refill(s) Imdur: 30 mg, Oral, QAM, 0 Refill(s) Lipitor 80 mg oral tablet: 1 Tab, Oral, At Bedtime, 0 Refill(s) Melatonin: 3 mg, Oral, At Bedtime, 0 Refill(s) Metoprolol Tartrate: 75 mg, Oral, BID, 0 Refill(s) Myrbetriq: 50 mg, Oral, Daily, 0 Refill(s) NexIUM 40 mg oral delayed release capsule: 1 Cap, Oral, Daily, 0 Refill(s) Pristiq: 100 mg, Oral, Daily, 0 Refill(s) Provigil: 200 mg, Oral, QAM, 0 Refill(s) Vascepa: 1 Gm, Oral, Daily, Am dose, 0 Refill(s) Vascepa: 2 Gram, Oral, QPM, Pm dose, 0 Refill(s) Vistaril: 50 mg, Oral, TID, 0 Refill(s) Vitamin D3 50,000 units oral capsule: 1 Cap, Oral, Weekly, usually on Mon, 0 Refill(s) Vraylar: 3 mg, Oral, Daily, 0 Refill(s) Xanax 1 mg oral tablet: 1 Tab, Oral, TID, 0 Refill(s) estradiol: 2 mg, Oral, Daily, 0 Refill(s) lamoTRIgine 100 mg oral tablet: 1 Tab, Oral, BID, 60 Tab, 0 Refill(s) levothyroxine 125 mcg (0.125 mg) oral tablet: 1 Tab, Oral, Daily, 60 Tab, 0 Refill(s) metFORMIN: 500 mg, Oral, Daily, 0 Refill(s) prazosin: 2 mg, Oral, Daily, Am dose, 0 Refill(s) prazosin: 8 mg, Oral, At Bedtime, 0 Refill(s), Home Medications (21) Active BuSpar 10 mg, [...] 1 mg = 1 Tab, Oral, TID , Medications (10) Active Scheduled: (6) alvimopan 12 mg cap 12 mg 1 Cap, Oral, On-CALL ertapenem sodium 1 Gram, IV Piggyback, 1-Time heparin 5,000 units/1 mL inj 5,000 Units 1 mL, SubCutaneous, 1-Time meloxicam 7.5 mg tab 15 mg 2 Tab, Oral, 1-Time pregabalin 75 mg cap 75 mg 1 Cap, Oral, 1-Time scopolamine 1 mg/72 hr patch 1.5 mg, TransDermal, 1-Time Continuous: (1) lactated ringers 1,000 mL 1,000 mL, IntraVENous, 20 mL/Hr PRN: (3) acetaminophen 500 mg tab 1,000 mg 2 Tab, Oral, 1-Time fentaNYL 100 mcg/2 mL inj 50 mcg 1 mL, IV Push, Q10Min midazolam 1 mg/1 mL inj 2 mL 2 mg 2 mL, IV Push, Q10Min Problem list: All Problems Thyroid disease / SNOMED CT 963473439 / Confirmed Fast heart beat / SNOMED CT 0652598 / Confirmed Bladder spasms / SNOMED CT 647212564 / Confirmed Narcolepsy / SNOMED CT 669563208 / Confirmed Irritable bowel syndrome / SNOMED CT 13287526 / Confirmed Hyperlipidemia / SNOMED CT 10775872 / Confirmed BETTY (obstructive sleep apnea) / IMO 98098883 / Confirmed GERD - Gastro-esophageal reflux disease / SNOMED CT 8138273448 / Confirmed Diabetes mellitus type II / SNOMED CT 80321841 / Confirmed Chronic idiopathic constipation / SNOMED CT 891271673 / Confirmed Back pain / SNOMED CT 820827859 / Confirmed Cardiac arrhythmia / SNOMED CT 1915184391 / Confirmed Anxiety / depression / Bipolar / PTSD / SNOMED CT 45915770 / Confirmed Angina / SNOMED CT 030196679 / Confirmed, Active Problems (14) Angina Anxiety / depression / Bipolar / PTSD Back pain Bladder spasms Cardiac arrhythmia Chronic idiopathic constipation Diabetes mellitus type II Fast heart beat GERD - Gastro-esophageal reflux disease Hyperlipidemia Irritable bowel syndrome Narcolepsy BETTY (obstructive sleep apnea) Thyroid disease Histories Past Medical History: No active or resolved past medical history items have been selected or recorded. Family History: No family history items have been selected or recorded. Procedure history: C-sectionx 2. tubal. uterine ablation. gallbladder. Partial hysterectomy. Back surgery. removal of both ovaries. placement of spinal cord stimulator. colonoscopies / EGD. Social History Social & Psychosocial Habits Alcohol 07/27/2021 Alcohol Use [...] 0.3 Month Tobacco Last Used July 2021 . Physical Examination VS/Measurements Vital Signs/Vital Measures 08/04/2021 11:19 EDT Systolic Blood Pressure 119 mmHg Diastolic Blood Pressure 56 mmHg LOW Temperature Source Temporal artery scanning Temperature Mode Fahrenheit Temperature, Fahrenheit 98 Deg F Clinical Temperature, C 36.7 Deg C Heart Rate Monitored 72 bpm Respiratory Rate 16 Breaths/Min Oxygen Saturation 99 % Oxygen Therapy Mode Room air , Vitals Signs (last 24 hrs) Last Charted Minimum Maximum Temp 98 (AUG 04:19) 98 (AUG 04 11:19) 98 (AUG 04:19) Mon HR 72 (AUG 04:19) 72 (AUG 04 11:19) 72 (AUG 04 11:19) Resp Rate 16 (AUG 04 11:19) 16 (AUG 04 11:19) 16 (AUG 04:19) SBP 119 (AUG 04:19) 119 (AUG 04 11:19) 119 (AUG 04 11:19) DBP L 56 (AUG 04 11:19) L 56 (AUG 04:19) L 56 (AUG 04:19) SpO2 99 (AUG 04 11:19) 99 (AUG 04 11:19) 99 (AUG 04:19) General: Alert and oriented, No acute distress, morbid obesity. Eye: Extraocular movements are intact, glasses. HENT: Normocephalic, Normal hearing. Respiratory: Lungs are clear to auscultation, Respirations are non-labored. Cardiovascular: Normal rate, Regular rhythm, No murmur, No gallop, No edema. Gastrointestinal: firm, distended, non tender to palpation . Musculoskeletal: Normal range of motion, Normal strength, L lower back SCS noted. Integumentary: Warm, Dry, Riley. Neurologic: Alert, Oriented. Psychiatric: Cooperative, Appropriate mood & affect. Review / Management Results review: Labs (Last four charted values) WBC 6.6 (JUL 28) HB 12.3 (JUL 28) HCT 37.5 (JUL 28) Plt 237 (JUL 28) Na 136 (JUL 28) K 4.3 (JUL 28) Cl 105 (JUL 28) CO2 27 (JUL 28) BUN 7 (JUL 28) Cr 1.00 (JUL 28) Glu R 103 (JUL 28) Ca 9.2 (JUL 28) . Impression and Plan Diagnosis 1. chronic constipation 2. BETTY 3. back pain 4. angina 5. anxiety/depression/bipolar/PTSD 6. DM 7. tachycardia hx 8. GERD 9. HLD 10. hypothyroidism 11. narcolepsy. Condition: Stable. pt to proceed with surgery, plan to stay 2 nights. Electronically signed by Ganesh Higginbotham Conversion Water Treatment Specialist Cerner at 05/27/2022 4:50 PM CDT documented in this encounter Plan of Treatment Upcoming Encounters Date Type Department Care Team (Late st Contact Info) Description 07/17/2024 11:00 AM EDT Appointment [facility] Wound & Ostomy Therapy [address] [place] [phone] 08/28/2024 9:15 AM EDT Office Visit [facility] Urology - [facility] [address] [facility] [address] [place] [address] Chandrika Santana, MANAGER MARKETING COMMUNICATION [address] [place] [address] 04/17/2025 8:30 AM EDT Office Visit [facility] Cardiology - [address] [place] [address] Tamara Sow PA-C [address] [facility] [address] [place] [address] documented as of this encounter Visit Diagnoses Not on filedocumented in this encounter Care Teams Stationary Engineer Refrigeration Relationship Specialty Start Date End Date Deandra Lopez, KRISTYN PCP - General Nurse Practitioner 04/18/22 06/03/24 Deandra Lopez, MANAGER MARKETING COMMUNICATION [address] [place] [address] PCP - General Nurse Practitioner 06/04/24 documented as of this encounter
--- OUTSIDE RECORDS SUMMARY | 2024-07-16 15:13 | XMS_ITS | Encounter Summary ---
Author Organization [facility] In [facility] Address [address] [place] [address] Care Team Providers Care Assistant Center Director Name Role Phone Deandra Lopez APRN Primary Care Provider +1- [phone] Deandra Lopez APRN Primary Care Provider +1- [phone] Encounter Details Date Type Department Care Team (Late st Contact Info) Description 08/23/2021 Transcribed Document [facility] Family Medicine [facility] [place] [address] ProviderElaine MD [address] [place] [address] Social History Tobacco Use Types [...] Conversion Note - Historical ProviderMD - 08/23/2021 9:44 AM CDT Notified of a critical potassium level. Notified surgeon of the lab and was told to notify the internal doctor. Dr. Jimenez was paged two times and a call back was never received. Notified the day RN. documented in this encounter Plan of Treatment Upcoming Encounters Date Type Department Care Team (Late st Contact Info) Description 07/17/2024 11:00 AM EDT Appointment [facility] Wound & Ostomy Therapy [address] [place] [phone] 08/28/2024 9:15 AM EDT Office Visit [facility] Urology - [address] [place] [address] Chandrika Santana, CASSANDRA DEVELOPER [address] [place] [address] 04/17/2025 8:30 AM EDT Office Visit [facility] Cardiology - [place] [address] [place] [address] Tamara Sow PA-C [address] [facility] [address] [place] [address] documented as of this encounter Visit Diagnoses Not on filedocumented in this encounter Care Teams Assistant Center Director Relationship Specialty Start Date End Date Deandra Lopez APRN PCP - General Nurse Practitioner 04/18/22 06/03/24 Deandra Lopez, CASSANDRA DEVELOPER [address] [place] [address] PCP - General Nurse Practitioner 06/04/24 documented as of this encounter
--- OUTSIDE RECORDS SUMMARY | 2024-07-16 15:13 | XMS_ITS | Encounter Summary ---
Author Organization [facility] In [facility]atives Address [address] [place] [address] Care Team Providers Care Harness Inspector Name Role Phone Deandra Lopez APRN Primary Care Provider +1- [phone] Deandra Lopez APRN Primary Care Provider +1- [phone] Encounter Details Date Type Department Care Team (Late st Contact Info) Description 08/23/2021 Transcribed Document [facility] [place] [facility] [place] [address] ProviderElaine MD [address] [place] [address] Social History Tobacco Use Types Packs/Day [...] Conversion Note - Historical ProviderMD - 08/23/2021 2:19 PM CDT Patient: DEMETRA MARTINEZ Age: 41 Years Sex: Female : 1980 Admit Date 08/20/2021 23:54 Discharge Date No Discharge Date on Record Primary Care Provider PHY, NOT LISTED Discharge Diagnosis Sepsis 08/23/2021 A41.9 ICD-10-CM Hypokalemia 08/23/2021 E87.6 ICD-10-CM Irritable bowel syndrome 08/21/2021 K58.9 ICD-10-CM Status post colectomy 08/21/2021 Z90.49 ICD-10-CM Intra-abdominal abscess 08/21/2021 K65.1 ICD-10-CM Diabetes mellitus type II 08/21/2021 E11.9 ICD-10-CM Hospital Course Patient is a 41-year-old female who 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 She presented to [facility] ED and was ultimately transferred to our facility on 08/20 with sepsis due to intra-abdominal abscess. Surgery and IR both consulted. She underwent drainage by IR with placement of 2 pigtail catheters. Infectious disease was consulted and patient was treated with Zosyn. PICC line was placed and she will need to continue on ertapenem daily for 2 weeks through 09/04. Drains are still in place and she will go home with these. Instructed how to continue irrigation by the surgeon. She had issues with hypokalemia while she was here. Recommend discharge home with potassium supplementation. Pain currently controlled and she has been cleared for discharge by ID and surgery. Vital Signs T: 36.6 ??C TMIN: 36.6 ??C TMAX: 36.8 ??C HR: 89(Monitored) RR: 15 BP: 139/80 SpO2: 92% Oxygen Settings (Last) Oxygen Therapy Mode: Room air (08/22/21 20:15:00) Oxygen Flow Rate: 2 Liter/Min (08/21/21 20:00:00) Physical Exam General: Alert, obese, no acute distress Neurologic: Moves all 4 extremities spontaneously, oriented X3, no focal deficits appreciated Eye: pupils equal, EOMI, normal conjunctiva HENT: Normocephalic, normal hearing, moist oral mucosa Neck: Supple, non-tender Lungs: Clear to auscultation, non-labored respiration, no crackles, no wheeze Heart: Normal rate, regular rhythm, no murmur, no edema Abdomen: Soft, TTP, drains in place, normal bowel sounds Musculoskeletal: No obvious deformity, no tenderness Skin: warm, dry, no rashes or lesions Psychiatric: Cooperative, appropriate mood and affect Discharge Disposition Home Discharge Follow Up Follow-up with infectious disease on 08/26 Follow-up with surgery on 08/27 Discharge Medications (24) Active busPIRone 10 mg oral tablet 10 mg = 1 Tab, Oral, TID ergocalciferol 1.25 mg (50,000 intl units) oral capsule 50,000 Int Units = 1 Cap, Oral, Monday estradiol 0.1 mg/g vaginal cream 1 Gram, Vaginal, TuThSa estradiol 2 mg oral tablet 2 mg = 1 Tab, Oral, Daily furosemide 20 mg oral tablet 20 mg = 1 Tab, PRN, Oral, Daily hydrOXYzine hydrochloride 50 mg oral tablet 50 mg = 1 Tab, PRN, Oral, TID hydrOXYzine pamoate 50 mg oral capsule 50 mg = 1 Cap, Oral, At Bedtime Icosapent Ethyl 1 g oral capsule 2 Gram = 2 Cap, Oral, BID With Meals isosorbide mononitrate 30 mg oral tablet, extended release 30 mg = 1 Tab, Oral, QAM lamoTRIgine 100 mg oral tablet 100 mg = 1 Tab, Oral, BID levothyroxine 125 mcg (0.125 mg) oral tablet 125 mcg = 1 Tab, Oral, Daily Lipitor 80 mg oral tablet 80 mg = 1 Tab, Oral, At Bedtime Melatonin 5 mg oral tablet 5 mg = 1 Tab, Oral, At Bedtime metFORMIN 500 mg oral tablet 500 mg = 1 Tab, Oral, Daily Metoprolol Succinate ER 50 mg oral tablet, extended release 75 mg = 1.5 Tab, Oral, Daily Myrbetriq 50 mg oral tablet, extended release 50 mg = 1 Tab, Oral, Daily NexIUM 40 mg oral delayed release capsule 40 mg = 1 Cap, Oral, Daily potassium chloride 20 mEq oral tablet, extended release 20 mEq = 1 Tab, Oral, Daily prazosin 1 mg oral capsule 2 mg = 2 Cap, Oral, QAM prazosin 2 mg oral capsule 8 mg = 4 Cap, Oral, At Bedtime Pristiq 100 mg oral tablet, extended release 100 mg = 1 Tab, Oral, Daily Provigil 200 mg oral tablet 200 mg = 1 Tab, Oral, QAM Vraylar 3 mg oral capsule 3 mg = 1 Cap, Oral, Daily Xanax 1 mg oral tablet 1 mg = 1 Tab, Oral, TID Code Status Start: 08/21/21 3:24:00 EDT, Full Code, Continuous Order Condition on Discharge Stable Consulting Physicians HEATH ROBLEDO MD-PRO TEERSA ALEXANDER MD-INF Current Diet Order Diet, Adult - Ordered -- Start: 08/21/21 19:51:00 EDT, 60 gm carbs:[id number] inessa, Isolation: Standard Precautions, Instructions: Diabetic Diet Patient Discharge Summary Orders Discharge Activity: Discharge Activity: Activity as tolerated Diet: Discharge Diet: Resume usual diet as tolerated Follow Up Labs/Studies Potassium level recheck on 08/27 Pending Labs Ordered Platelet Count Specimen Type: Blood, Routine collect, 08/23/21 3:24:00 EDT, Q48H, Lab Collect Preliminary Culture Anaerobic Specimen Type: Abscess, From: Abdomen, Routine collect, 08/21/21 13:46:00 EDT, 1-Time, Stop: 08/21/21 13:48:00 EDT, Nurse Collect Culture Body Fluid and Stain Specimen Type: Peritoneal Fluid, From: Abdomen, Routine collect, 08/21/21 13:46:00 EDT, 1-Time, Stop: 08/21/21 13:48:00 EDT, Nurse Collect Culture AFB and Stain Specimen Type: Abscess, From: Abdomen, Routine collect, 08/21/21 13:39:00 EDT, 1-Time, Stop: 08/21/21 13:43:00 EDT, Nurse Collect Culture Anaerobic Specimen Type: Abscess, From: Abdomen, Routine collect, 08/21/21 13:39:00 EDT, 1-Time, Stop: 08/21/21 13:43:00 EDT, Nurse Collect Culture Body Fluid and Stain Specimen Type: Peritoneal Fluid, From: Abdomen, Routine collect, 08/21/21 13:39:00 EDT, 1-Time, Stop: 08/21/21 13:43:00 EDT, Nurse Collect Culture Blood Specimen Type: Blood, Stat collect, 08/21/21 3:22:00 EDT, 1-Time, Stop: 08/21/21 3:24:00 EDT, Lab Collect Culture Blood Specimen Type: Blood, Timed Study collect, 08/21/21 3:37:00 EDT, 1-Time, Stop: 08/21/21 3:37:00 EDT, Lab Collect Stain Culture AFB and Stain Specimen Type: Abscess, From: Abdomen, Routine collect, 08/21/21 13:46:00 EDT, 1-Time, Stop: 08/21/21 13:48:00 EDT, Nurse Collect Culture Fungus Specimen Type: Abscess, From: Abdomen, Routine collect, 08/21/21 13:46:00 EDT, 1-Time, Stop: 08/21/21 13:48:00 EDT, Nurse Collect Culture Fungus Specimen Type: Abscess, From: Abdomen, Routine collect, 08/21/21 13:39:00 EDT, 1-Time, Stop: 08/21/21 13:43:00 EDT, Nurse Collect Time Spent on Discharge >35 min was spent on discharging patient including time spent discussing plan with patient, case management, and nursing staff. Also answering all patients questions and educating on new medications. documented in this encounter Plan of Treatment Upcoming Encounters Date Type Department Care Team (Late st Contact Info) Description 07/17/2024 11:00 AM EDT Appointment [facility] Wound & Ostomy Therapy [address] [place] [address] 08/28/2024 9:15 AM EDT Office Visit [facility] Urology - [address] [place] [address] Chandrika Santana, KRISTYN [address] [place] [address] 04/17/2025 8:30 AM EDT Office Visit [facility] Cardiology - [place] [address] [place] [address] Tamara Sow PA-C [address] [facility] [address] [place] [address] documented as of this encounter Visit Diagnoses Not on filedocumented in this encounter Care Teams Harness Inspector Relationship Specialty Start Date End Date Deandra Lopez APRN PCP - General Nurse Practitioner 04/18/22 06/03/24 Deandra Lopez, COLLEGE ADMISSIONS COUNSELOR [address] [place] [address] PCP - General Nurse Practitioner 06/04/24 documented as of this encounter
--- OUTSIDE RECORDS SUMMARY | 2024-07-16 15:13 | XMS_ITS | Encounter Summary ---
Author Organization [facility] Init [facility]atives Address [address] [place] [address] Care Team Providers Care Senior Information Security Analyst Name Role Phone Deandra Schulz APRN Primary Care Provider +1- [phone] Deandra Schulz APRN Primary Care Provider +1- [phone] Encounter Details Date Type Department Care Team (Late st Contact Info) Description 08/31/2021 Transcribed Document [facility] Family Medicine [facility] [place] [address] ProviderElaine MD [address] [place] [address] Social History Tobacco Use Types Packs/Day [...] Cerner Conversion Note - Historical ProviderMD - 08/31/2021 3:09 PM CDT UM Authorization Entered On: 08/31/2021 15:09 EDT Performed On: 08/31/2021 15:09 EDT by WILMER SCHULZ RN Primary Insurance Authorization Authorization and Policy Numbers : Insurance 1 Health Plan: [facility] Policy Number: [id number] Authorization Number: Insurance Primary Name : [facility] Policy Number: [id number] Authorization Status-Primary : Admit approved Auth/Referral Contact Name-Primary : DC+ Reference Number-Primary : [id number] Authorized Service Begin Date-Primary : 08/20/2021 EDT Authorization Comments-Primary : P2P completed and denial OT. Historical Authorization Comments-Primary : Comment 1: Rec fax 08/31/21 re: P2P outcome Placed fax in Denials 2021 bucket for JJ to review (TYREL SALDANA, Educational Program Assistant 08/31/2021 14:22) Comment 2: Discharge date and summary faxed. (Tonie Whelan, Wood Craftsman 08/24/2021 13:17) Comment 3: Emailed to [facility] staff (WILMER SCHULZ RN 08/24/2021 11:15) Comment 4: Denied per fax 08/21/21 @ 6529 citing medical necessity. Placed in Denials 2021 folder. (Tonie Whelan, Wood Craftsman 08/23/2021 10:34) Comment 5: ellen faxed per pa. clinical faxed via [employer] (Nicki Muniz, Rn-Utilization Review 08/21/2021 13:37) WILMER SCHULZ RN - 08/31/2021 15:09 EDT Electronically signed by Ganesh Higginbotham Conversion Global Position System Technician Cerner at 05/27/2022 4:56 PM CDT documented in this encounter Plan of Treatment Upcoming Encounters Date Type Department Care Team (Late st Contact Info) Description 07/17/2024 11:00 AM EDT Appointment [facility] Wound & Ostomy Therapy [address] [place] [address] 08/28/2024 9:15 AM EDT Office Visit [facility] Urology - [address] [place] [address] Chandrika Santana, HOT IRON WORKER [address] [place] [address] 04/17/2025 8:30 AM EDT Office Visit [facility] Cardiology - [place] [address] [place] [address] Tamara Sow PA-C [address] [address] documented as of this encounter Visit Diagnoses Not on filedocumented in this encounter Care Teams Senior Information Security Analyst Relationship Specialty Start Date End Date Deandra Schulz APRN PCP - General Nurse Practitioner 04/18/22 06/03/24 Deandra Schulz, HOT IRON WORKER [address] [place] [address] PCP - General Nurse Practitioner 06/04/24 documented as of this encounter
--- OUTSIDE RECORDS SUMMARY | 2024-07-16 15:13 | XMS_ITS | Encounter Summary ---
Author Organization [facility] In iatives Address [address] [place] [address] Care Team Providers Care Call Center Consultant Name Role Phone Deandra Lopez APRN Primary Care Provider +1- [phone] Deandra Lopez APRN Primary Care Provider +1- [phone] Encounter Details Date Type Department Care Team (Late st Contact Info) Description 08/05/2021 Transcribed Document [facility] Family [place] [facility] [place] [address] ProviderElaine MD [address] [place] [address] Social History Tobacco Use Types [...] Note - Historical ProviderMD - 08/05/2021 5:00 AM CDT Chart Check - Review Order Profile Entered On: 08/05/2021 5:15 EDT Performed On: 08/05/2021 5:00 EDT by Nubia French Lpn Chart Check Powerplans Initiated/Discontinued as Appropriate : Yes All Active Orders Reviewed : Yes Nubia French Lpn - 08/05/2021 5:15 EDT Electronically signed by Anahy [facility] Conversion Environmental Studies Faculty Member Cerner at 05/27/2022 4:43 PM CDT documented in this encounter Plan of Treatment Upcoming Encounters Date Type Department Care Team (Late st Contact Info) Description 07/17/2024 11:00 AM EDT Appointment [facility] Wound & Ostomy Therapy [address] [place] [address] 08/28/2024 9:15 AM EDT Office Visit [facility] Urology - [address] [place] [id number] Chandrika Santana, ELECTRICAL APPRENTICE [address] [place] [id number] 04/17/2025 8:30 AM EDT Office Visit [facility] Cardiology - [place] [address] [place] [address] Tamara Sow PA-C [address] [facility] [address] [place] [address] documented as of this encounter Visit Diagnoses Not on filedocumented in this encounter Care Teams Call Center Consultant Relationship Specialty Start Date End Date Deandra Lopez APRN PCP - General Nurse Practitioner 04/18/22 06/03/24 Deandra Lopez, ELECTRICAL APPRENTICE [address] [place] [address] PCP - General Nurse Practitioner 06/04/24 documented as of this encounter
--- OUTSIDE RECORDS SUMMARY | 2024-07-16 15:13 | XMS_ITS | Encounter Summary ---
Author Organization [facility] In [facility]atives Address [address] [place] [address] Care Team Providers Care Advanced Registered Nurse Name Role Phone Deandra Lopez APRN Primary Care Provider +1- [phone] Deandra Lopez APRN Primary Care Provider +1- [phone] Encounter Details Date Type Department Care Team (Late st Contact Info) Description 08/23/2021 Transcribed Document [facility] [place] [facility] [place] [address] ProviderElaine MD [address] [place], [place] [id number] Social History Tobacco Use Types Packs/Day Years [...] Conversion Note - Historical ProviderMD - 08/23/2021 2:16 PM CDT Initial Discharge Planning Entered On: 08/23/2021 14:24 EDT Performed On: 08/23/2021 14:16 EDT by Jagdish Jones, MACHINE ACCOUNTANT NON-EXEMPT Initial Assessment I Previously Documented Living Environment : No qualifying data available. Living Situation : Home Patient Lives With : Dependent Child/Children, Significant other(s) Emergency Contact #1 : Lillie Sarmiento Emergency Contact #1 Emergency Contact #1 Relationship : Boyfriend Emergency Contact #2 : x Emergency Contact #2 Phone Number : x Emergency Contact #2 Relationship : x Identified Medical Decision Maker : Self 2nd Ident. Medical Decision Maker : Jacqueline Emily 2nd Ident. Medical Decision Maker Secondary Number of People in Class : 1 2nd Ident. Medical Decision Maker Class : Nearest Living Relative Enter Doctors Name : Deandra Lpoez Does Patient have PCP Listed? : Yes Patient's Home Caregiver Name/Relationship : Lillie/GASPER Patient's Home Caregiver Legal Guardian : No Is Guardianship Needed : No Jagdish Jones SOCIAL WORKER NON-EXEMPT - 08/23/2021 14:16 EDT Initial Assessment II Sensory and Motor Deficits : None Current Home Treatments and Equipment : CPAP Does the Patient have a Floor to SNF Benefit? : No Jagdish Jones SOCIAL WORKER NON-EXEMPT - 08/23/2021 14:16 EDT Discharge Needs I Anticipated Discharge Date : 08/23/2021 EDT Anticipated Discharge To, CM : Home with family care Current Home Treatment/Equipment : Current Home Treatment/Equipment No qualifying data available. Post Acute/Home Treatments : CPAP Documentation Status Complete : Yes Jagdish Jones SOCIAL WORKER NON-EXEMPT - 08/23/2021 14:16 EDT Discharge Needs II Professional Skilled Services : Professional Skilled Services No qualifying data available. Services and Community Resources : Infusion clinic Needs Assistance with Transportation : No Discharge Options Discussed with Patient : Discharge transportation, DME, Home Health, Outpatient services Patient Discharge Goal : Home Jagdish Jones SOCIAL WORKER NON-EXEMPT - 08/23/2021 14:16 EDT Narrative Note Narrative Note : Day 3 with no ELOS High readmission risk Pt lives with dependent children & SO Ind with ADLs DC plan is home with family/prior support No HH available in pt's area that takes her insurance Pt agreeable to outpt IV abx at [facility] CM arranged for IV abx to start 08/24/2021 @ [address] [facility] will also address weekly labs & PICC changes Pt reports no issues with transportation for daily visits CM will continue to follow, but expect later DC Jagdish Jones MACHINE ACCOUNTANT NON-EXEMPT - 08/23/2021 14:16 EDT Electronically signed by Ganesh Higginbotham Conversion Supervisor Packing Room Cerner at 05/27/2022 4:47 PM CDT documented in this encounter Plan of Treatment Upcoming Encounters Date Type Department Care Team (Late st Contact Info) Description 07/17/2024 11:00 AM EDT Appointment [facility] Wound & Ostomy Therapy [address] [place] [address] 08/28/2024 9:15 AM EDT Office Visit [facility] Urology - [address] [place] [address] Chandrika Santana, AIR TRAFFIC COORDINATOR [address] [place] [address] 04/17/2025 8:30 AM EDT Office Visit [facility] Cardiology - [place] [address] [place] [address] Tamara Sow PA-C [address] [facility] [address] [place] [address] documented as of this encounter Visit Diagnoses Not on filedocumented in this encounter Care Teams Advanced Registered Nurse Relationship Specialty Start Date End Date Deandra Lopez APRN PCP - General Nurse Practitioner 04/18/22 06/03/24 Deandra Lopez, AIR TRAFFIC COORDINATOR [address] [place] [address] PCP - General Nurse Practitioner 06/04/24 documented as of this encounter
--- OUTSIDE RECORDS SUMMARY | 2024-07-16 15:13 | XMS_ITS | Encounter Summary ---
Author Organization [facility] Address [address] [place] [address] Care Team Providers Care Gluer And Wedger Name Role Phone Deandra Lopez APRN Primary Care Provider +1- [phone] Deandra Lopez APRN Primary Care Provider +1- [phone] Encounter Details Date Type Department Care Team (Late st Contact Info) Description 08/06/2021 Transcribed Document [facility] [place] [facility] [place] [address] ProviderElaine MD [address] [place] [id number] Social History Tobacco Use Types Packs/Day Years [...] Cerner Conversion Note - Historical ProviderMD - 08/06/2021 2:52 PM CDT Patient: DEMETRA MARTINEZ Age: 41 Years Sex: Female : 1980 Patient seen this afternoon. Continues to have crampy abdominal pain with nausea. On examination patient's abdomen is distended. She has passed some small amount of liquid stool. Impression: Postoperative ileus. Labs unremarkable. I suspect tachycardia is secondary to patient discomfort. Plan: Patient needs NG tube. have reviewed care with nurse. Specifically, have reviewed pain management with Tylenol, Toradol, and patient has not yet been given Valium. Reviewed order in which she should be given. Have encouraged ambulation. Electronically signed by Ganesh Higginbotham Conversion Dedicated Owner Operator Agata at 05/27/2022 4:34 PM CDT documented in this encounter Plan of Treatment Upcoming Encounters Date Type Department Care Team (Late st Contact Info) Description 07/17/2024 11:00 AM EDT Appointment [facility] Wound & Ostomy Therapy [address] [place] [address] 08/28/2024 9:15 AM EDT Office Visit [facility] Urology - [address] [place] [address] Chandrika Santana, KINDERGARTNER [address] [place] [address] 04/17/2025 8:30 AM EDT Office Visit [facility] Cardiology - [place] [address] [place] [address] Tamara Sow PA-C [address] [facility] [address] [place] [address] documented as of this encounter Visit Diagnoses Not on filedocumented in this encounter Care Teams Gluer And Wedger Relationship Specialty Start Date End Date Deandra Lopez APRN PCP - General Nurse Practitioner 04/18/22 06/03/24 Deandra Lopez, KINDERGARTNER [address] [place] [address] PCP - General Nurse Practitioner 06/04/24 documented as of this encounter
--- OUTSIDE RECORDS SUMMARY | 2024-07-16 15:13 | XMS_ITS | Encounter Summary ---
Author Organization [facility] Address [address] [place] [address] Care Team Providers Care Field Liability Generalist Name Role Phone Liliam Schulz APRN Primary Care Provider +1- [phone] Liliam Schulz APRN Primary Care Provider +1- [phone] Encounter Details Date Type Department Care Team (Late st Contact Info) Description 08/23/2021 Transcribed Document [facility] [place] Family Medicine [facility] [place] [address] ProviderElaine MD [address] [place] [address] Social History Tobacco Use Types Packs/Day [...] Historical ProviderMD - 08/23/2021 4:08 PM CDT [facility] [place] [address] DEMETRA MARTINEZ :1980 Visit Time:08/20/2021 Your Visit Summary Your Care Team Admitting Physician - DEVIN NELSON, DO-INT Attending Physician - DEVIN NELSON, DO-INT Primary Care Physician - TAMARA, NOT LISTED Referring Physician - PHY, UNKNOWN Your Diagnosis Intra-abdominal abscess Status post colectomy Diabetes mellitus type II Irritable bowel syndrome Sepsis Hypokalemia These Are Your Goals Patient Discharge Goal Patient Discharge Goal: Home Discharge Vitals Temperature 36.6 ??C Heart Rate (Monitored) 89 Blood Pressure 139/80 What to do next Instructions From Your Care Team Please STOP taking Amoxicillin-Clavulanate Community Services: Daily IV infusions at [facility] starting 08/24/2021 @ 10 AM. Go to outpatient registration. Discharge Summary: Home with family Transportation: Family/friend Discharge Activity: Discharge Activity: Activity as tolerated Diet: Discharge Diet: Resume usual diet as tolerated Follow-Up Appointments Follow Up with LILIAM SCHULZ When 08/30/2021 09:00 AM EDT Comments PCP appt made, Bring discharge instructions with you Where: [facility] [place] [address]- [phone] Follow Up with HEATH ROBLEDO MD-PRO When 08/27/2021 02:30 PM EDT Comments COLORECTAL appt made, Bring discharge instructions with you Where: [address] [facility] [address] [place] [address]- Follow Up with TERESA ALEXANDER MD-INF When 08/26/2021 12:45 PM EDT Comments INFECTIOUS DISEASE appt made, Bring discharge instructions with you Where: [address] [place] [address]- Medications What How Much When Instructions Next Dose ertapenem (INVanz 1 g injection) 1 Gram(s) IntraVENous Interval Every 24 Hours potassium chloride (potassium chloride 20 mEq oral tablet, extended release) 1 Tablet(s) Oral Every Day Duration: 7 Day(s) Pickup at [facility] ALPRAZolam (Xanax 1 mg oral tablet) 1 Tablet(s) Oral Three Times A Day atorvastatin (Lipitor 80 mg oral tablet) 1 Tablet(s) Oral At Bedtime busPIRone (busPIRone 10 mg oral tablet) 1 Tablet(s) Oral Three Times A Day cariprazine (Vraylar 3 mg oral capsule) 1 Capsule(s) Oral Every Day desvenlafaxine (Pristiq 100 mg oral tablet, extended release) 1 Tablet(s) Oral Every Day ergocalciferol (ergocalciferol 1.25 mg (50,000 intl units) oral capsule) 1 Capsule(s) Oral Monday esomeprazole (NexIUM 40 mg oral delayed release capsule) 1 Capsule(s) Oral Every Day estradiol (estradiol 2 mg oral tablet) 1 Tablet(s) Oral Every Day estradiol topical (estradiol 0.1 mg/ g vaginal cream) 1 Gram(s) Vaginal Monday, , Monday furosemide (furosemide 20 mg oral tablet) 1 Tablet(s) Oral Every Day as needed for Edema hydrOXYzine (hydrOXYzine hydrochloride 50 mg oral tablet) 1 Tablet(s) Oral Three Times A Day as needed for anxiety hydrOXYzine (hydrOXYzine pamoate 50 mg oral capsule) 1 Capsule(s) Oral At Bedtime icosapent (Icosapent Ethyl 1 g oral capsule) 2 Capsule(s) Oral Twice a Day With Meals isosorbide mononitrate (isosorbide mononitrate 30 mg oral tablet, extended release) 1 Tablet(s) Oral Every Morning lamoTRIgine (lamoTRIgine 100 mg oral tablet) 1 Tablet(s) Oral Two Times A Day levothyroxine (levothyroxine 125 mcg (0.125 mg) oral tablet) 1 Tablet(s) Oral Every Day melatonin (Melatonin 5 mg oral tablet) 1 Tablet(s) Oral At Bedtime metFORMIN (metFORMIN 500 mg oral tablet) 1 Tablet(s) Oral Every Day metoprolol (Metoprolol Succinate ER 50 mg oral tablet, extended release) 1.5 Tablet(s) Oral Every Day mirabegron (Myrbetriq 50 mg oral tablet, extended release) 1 Tablet(s) Oral Every Day modafinil (Provigil 200 mg oral tablet) 1 Tablet(s) Oral Every Morning prazosin (prazosin 1 mg oral capsule) 2 Capsule(s) Oral Every Morning prazosin (prazosin 2 mg oral capsule) 4 Capsule(s) Oral At Bedtime Pharmacy Information [facility] [place]: [address] [place] [address] [address] [place], [place] [id number] [phone] Take your medications faithfully. Do NOT skip medication. Do NOT stop taking medications without the direction of a physician. Carry a list of your medications with you at all times, and take this medication list with you to your first follow up visit. Report any side effects. Avoid herbal remedies unless discussed with your physician. As part of your treatment plan, your physician may have prescribed a limited course of a controlled substance. This medication may be given to help people with moderate or severe pain or for other medical conditions, but there are risks involved with treatment. Common side effects may include nausea, constipation, drowsiness, sweating, itching, dry mouth, and rash. More serious side effects may include cognitive and motor impairment, like problems with thinking, concentrating, alertness, and movement (e.g. slowed reflexes), and driving and operating heavy machinery can be dangerous. It is important for you to talk to your physician if you have these side effects or questions. These controlled substances can produce physical dependence and be habit-forming if taken for an extended period of time, which means that the body has gotten used to them and may experience withdrawal symptoms if they are abruptly stopped. Withdrawal symptoms can include runny nose, sweating, goose bumps, diarrhea, abdominal cramping, rapid heartbeat, difficulty sleeping, and nervousness. Please dispose of unused and medications per your retail pharmacy guidance. Allergies Imitrex (rapid heart rate) Sudafed (rapid heart rate, dizziness) oral steroids (skin rash, rapid heart rate) predniSONE (Hives to oral prednisone) pseudoephedrine-triprolidine (rapid heart rapid, dizziness) Immunizations This Visit No Immunizations Found Education Materials Carbohydrate Counting for Diabetes Mellitus, Adult Carbohydrate [...] (85 g) boiled or mashed potatoes, or ?? or 3 oz (85 g) of a [...] foods that contain carbohydrates: ??? Rice. ??? [place]. ??? Milk. ??? Strawberries. 2. Calculate how [...] snacks. Where to find more information ??? [place] Diabetes Association: www.diabetes.org ??? Centers for Disease [...] provider. Document Revised: 01/23/2020 Document Reviewed: 01/24/2020 [employer] Patient Education ?? 2020 [employer]. Diabetes Mellitus and Nutrition, Adult When [...] Limit how much you use to: ? 0???1 drink a day for women. ? 0???2 drinks a day for men. ? Be aware of how much alcohol is in your drink. In the [place] one drink equals one 12 oz bottle of beer (355 mL), one 5 oz glass of wine (148 mL), or one 1?? oz glass of hard liquor (44 mL). [...] can eat at each meal. ??? Eat 4???6 oz (112???168 g) of lean protein each day, such as lean meat, chicken, fish, eggs, or tofu. One ounce (oz) of lean protein is equal to: ? 1 oz (28 g) of meat, chicken, or fish. ? 1 egg. ? ?? cup (62 g) of tofu. ??? Eat some foods each day that contain healthy fats, such as avocado, nuts, seeds, and fish. What foods should I eat? Fruits Berries. Apples. Oranges. Peaches. Apricots. Plums. Grapes. [place]. Papaya. Pomegranate. Kiwi. Cherries. Vegetables Lettuce. Spinach. Leafy greens, including kale, chard, german greens, and mustard greens. Beets. Cauliflower. Cabbage. Broccoli. Carrots. Green beans. Tomatoes. Peppers. Onions. Cucumbers. Bellflower sprouts. Grains Whole grains, such as whole-wheat [...] Do I need to meet with a chemical educator? Do I need to meet with a dietitian? What number can I call if I have questions? When are the best times to check my blood glucose? Where to find more information: ??? [place] Diabetes Association: diabetes.org ??? Academy of Nutrition and Dietetics: www.eatright.org ??? National [place] of Diabetes and Digestive and Kidney Diseases: [...] provider. Document Revised: 12/31/2019 Document Reviewed: 12/31/2019 [employer] Patient Education ?? 2020 [employer]. Skin Abscess A skin abscess is an [...] these instructions at home: Medicines ??? Take irrw-pwj-vqvhbwk and prescription medicines only as told by [...] cannot use soap and water, use hand registration scheduling specialist. ??? Check your abscess every day for signs that the infection is getting worse. Check for: ? More redness, swelling, or pain. ? More fluid or blood. ? Warmth. ? More pus or a bad smell. General instructions ??? To avoid spreading the infection: ? Do not share personal care items, towels, or hot tubs with others. ? Avoid making kcoq-un-lwxj contact with other people. ??? Keep all [...] provider. Document Revised: 08/29/2019 Document Reviewed: 03/08/2018 [employer] Patient Education ?? 2020 [employer]. PICC Home Care Guide A peripherally inserted [...] and water are not available, use hand registration scheduling specialist. ? Change your dressing as told by [...] provider. Document Revised: 06/03/2020 Document Reviewed: 06/03/2020 [employer] Patient Education ?? 2020 [employer]. Emergency Awareness and Preventative Care STROKE is an EMERGENCY Every Minute Counts Act FAST and Check for these signs: FACE Does the face look uneven? ARM Does one arm drift down? SPEECH Does their speech sound strange? TIME Call at any sign of stroke Stroke Risk Factors Atrial Fibrillation (irregular heartbeat) Diabetes Family history of stroke Heart Disease Heavy alcohol use High Blood Pressure High Cholesterol Physical inactivity and obesity Smoking Cigarette Smoking The facts are clear, cigarette smoking will shorten your life. Smoking can cause many illnesses along the way. As a healthcare provider, we recommend that you stop smoking. Assistance with quitting is available by contacting 8-804-ZOEHNOW. This is a free resource providing counseling, support, and referral. Or you may contact your personal physician. [employer] Suicide Prevention Lifeline: The National Suicide Prevention Lifeline is a national network of local crisis centers that provides free and confidential emotional support to people in suicidal crisis or emotional distress 24 hours a day, 7 days a week. Don't Wait! Stop a Heart Attack Before it Starts What is a heart attack? A heart attack is damage or to a part of the heart from severely decreased or lack of blood flow to the heart. Over time, arteries can become narrow from the buildup of fat and cholesterol, which is called plaque. The plaque can rupture causing a blood clot to form. When the blood clot forms, the artery can become severely narrowed or completely blocked, causing a heart attack. Heart attack is the leading cause of in the [place]. 85% of muscle damage occurs within the first 2 hours. Delay in the recognition of heart attack symptoms increases the chances of . Know the early symptoms of a heart attack: Nausea Feeling of fullness in chest Jaw Pain Pain that travels down one or both arms Fatigue/being tired Anxiety Back Pain Chest pressure, squeezing, or discomfort Shortness of breath Sweating, or a cold sweat Feeling of impending doom There are unusual signs of a heart attack, too! Women, the elderly, and diabetics may present with atypical symptoms: Fainting/dizziness Weakness Confusion Risk Factors for a Heart Attack Some heart disease risk factors, such as age and family history, cannot be changed. Others, like smoking and lack of exercise, can be changed. Smoking High Cholesterol High Blood Pressure Family History Obesity Age Gender (Males are at higher risk) Lack of Exercise Diabetes Diet Stress Excessive Alcohol Intake If you or someone you know is experiencing the signs and symptoms of a heart attack, DON???T DELAY. Call immediately and seek help. If someone collapses, perform CPR! Do not attempt to drive if you are having symptoms of heart attack. Hands-Only CPR Why Hands-Only CPR? Hands-Only CPR has been shown to be as effective as conventional CPR for cardiac arrests that occur outside of a hospital. Survival depends on immediately receiving CPR from someone nearby. How do you perform Hands-Only CPR? There are two easy steps: Call if you see a teen or adult collapse Push hard and fast in the center of the chest at a beat of 100 beats per minute. Save a life! 4 WAYS TO GET AHEAD OF SEPSIS SEPSIS is a MEDICAL EMERGENCY. Time matters! Infections put you and your family at risk for a life-threatening condition called sepsis. Sepsis is the body's extreme response to an infection. It is life-threatening, and without timely treatment, sepsis can rapidly lead to tissue damage, organ failure, and . Sepsis happens when an infection you already have-in your skin, lungs, urinary tract or somewhere else-triggers a chain reaction throughout your body. 1 PREVENT INFECTIONS Take good care of chronic conditions. Talk to your doctor about getting the recommended vaccines. 2 PRACTICE GOOD HYGIENE Wash your hands frequently. Keep cuts or open sores clean and covered until they are healed. 3 KNOW THE SYMPTOMS Confusion or disorientation Shortness of breath High heart rate Fever, shivering, or feeling very cold Extreme pain or discomfort Clammy or sweaty skin 4 ACT FAST Get medical care IMMEDIATELY if you suspect sepsis or if you have an infection that is not getting better or is getting worse. To learn more about sepsis and how to prevent infections, visit www.cdc.gov/sepsis. Test Results Laboratory or Other Results This Visit (last charted value for your 08/20/2021 visit) Hematology 08/23/2021 6:12 AM WBC: 6.3 K/uL -- Normal range between ( 4.5 and 10.5 ) RBC: 3.21 Million/uL -- Normal range between ( 3.93 and 5.22 ) Hct: 27.2 % -- Normal range between ( 34.1 and 44.9 ) Hgb: 8.8 g/dL -- Normal range between ( 11.2 and 15.7 ) Platelet Count: 448 K/uL -- Normal range between ( 163 and 369 ) MCH: 27.4 pg -- Normal range between ( 25.6 and 32.2 ) MCHC: 32.4 Gram/dL -- Normal range between ( 32.2 and 36.5 ) MCV: 84.7 fL -- Normal range between ( 79.0 and 94.8 ) Slide Review: No RDW: 12.3 % -- Normal range between ( 11.7 and 14.9 ) MPV: 8.6 fL -- Normal range between ( 9.4 and 12.4 ) nRBC: 0.030 -- Normal range between ( 0.000 and 0.012 ) 08/21/2021 4:00 AM Eos %: 0.3 % -- Normal range between ( 0.0 and 7.0 ) [place] #: 1.14 K/uL -- Normal range between ( 0.16 and 1.00 ) Eos #: 0.04 x10(3)/uL -- Normal range between ( 0.00 and 0.80 ) [place] %: 9.7 % -- Normal range between ( 3.0 and 9.0 ) Baso %: 0.6 % -- Normal range between ( 0.0 and 1.5 ) RBC Morphology: Normal Baso #: 0.07 x10(3)/uL -- Normal range between ( 0.00 and 0.20 ) Neut %: 72.9 % -- Normal range between ( 34.0 and 71.0 ) Neut #: 8.52 K/uL -- Normal range between ( 1.56 and 6.13 ) Lymph %: 13.9 % -- Normal range between ( 19.3 and 53.1 ) Platelet Ct Estimate: Adequate Lymph #: 1.63 x10(3)/uL -- Normal range between ( 1.00 and 3.90 ) IG#: 0.31 x10(3)/uL -- Normal range between ( 0.00 and 0.05 ) IG%: 2.60 % -- Normal range between ( 0.00 and 0.60 ) Microbiology 08/21/2021 4:28 AM MRSA Surveillance: See Result General Chemistry 08/23/2021 12:17 PM Potassium Level: 3.0 mmol/L -- Normal range between ( 3.5 and 5.1 ) 08/23/2021 11:55 AM Glucose POC2: 120 mg/dL -- Normal range between ( 70 and 110 ) Device Comment 1: Device Comment 1 08/23/2021 6:12 AM Creatinine Level: 0.70 mg/dL -- Normal range between ( 0.55 and 1.02 ) Sodium Level: 137 mmol/L -- Normal range between ( 136 and 146 ) Chloride Level: 103 mmol/L -- Normal range between ( 102 and 112 ) Carbon Dioxide Level: 28 mmol/L -- Normal range between ( 21 and 32 ) Anion Gap: 9 -- Normal range between ( 9 and 20 ) Bilirubin Total: 0.5 mg/dL -- Normal range between ( 0.2 and 1.2 ) A/G Ratio: 0.4 -- Normal range between ( 1.1 and 2.5 ) ALT: 38 Units/Liter -- Normal range between ( 13 and 56 ) AST: 77 Units/Liter -- Normal range between ( 5 and 37 ) Globulin: 4.4 Gram/dL -- Normal range between ( 1.5 and 4.5 ) Alk Phos: 208 Units/Liter -- Normal range between ( 27 and 136 ) Bun/Creatinine: 2.9 -- Normal range between ( 8.0 and 20.0 ) Calcium Level: 7.9 mg/dL -- Normal range between ( 8.4 and 10.1 ) CRP: 13.40 mg/dL -- Normal range between ( 0.00 and 0.30 ) eGFR : >60 mL/min/1.73m2 eGFR NonAfrican: >60 mL/min/1.73m2 Glucose Level: 91 mg/dL -- Normal range between ( 74 and 106 ) Magnesium Level: 2.1 mg/dL -- Normal range between ( 1.5 and 2.4 ) Blood Urea Nitrogen: 2 mg/dL -- Normal range between ( 7 and 22 ) Protein Total: 6.0 Gram/dL -- Normal range between ( 6.4 and 8.2 ) Albumin Level: 1.6 Gram/dL -- Normal range between ( 3.4 and 5.0 ) Endocrinology 08/22/2021 5:42 AM Procalcitonin: 0.33 ng/mL -- Normal range between ( 0.00 and 2.00 ) Computed Tomography 08/21/2021 1:[address] Drainage Peritoneal: CT Drainage Peritoneal Patient Name:DEMETRA MARTINEZ I have received and understand this information and was given the opportunity to ask questions. Patient/Sewing Techniques Demonstrator Name: Patient/Sewing Techniques Demonstrator Signature: Relationship to Patient: Clinician/Hospital Sewing Techniques Demonstrator Signature: Date: Electronically signed by Ganesh Higginbotham Conversion Mash Processing Operator Cerner at 05/27/2022 4:52 PM CDT documented in this encounter Plan of Treatment Upcoming Encounters Date Type Department Care Team (Late st Contact Info) Description 07/17/2024 11:00 AM EDT Appointment [facility] Wound & Ostomy Therapy [address] [place] [address] 08/28/2024 9:15 AM EDT Office Visit [facility] Urology - [address] [place] [address] Chandrika Santana, MERCHANT BANKER [address] [place] [address] 04/17/2025 8:30 AM EDT Office Visit [facility] Cardiology - [place] [address] [place] [address] Tamara Sow PA-C [address] [facility] [address] [place] [address] documented as of this encounter Visit Diagnoses Not on filedocumented in this encounter Care Teams Field Liability Generalist Relationship Specialty Start Date End Date Liliam Schulz, KRISTYN PCP - General Nurse Practitioner 04/18/22 06/03/24 Liliam Schulz, MERCHANT BANKER [address] [facility] [place] [address] PCP - General Nurse Practitioner 06/04/24 documented as of this encounter
--- OUTSIDE RECORDS SUMMARY | 2024-07-16 15:13 | XMS_ITS | Encounter Summary ---
Author Organization [facility] Address [address] [place] [address] Care Team Providers Care In Flight Refueling Operator Name Role Phone Deandra Lopez APRN Primary Care Provider +1- [phone] Deandra Lopez APRN Primary Care Provider +1- [phone] Encounter Details Date Type Department Care Team (Late st Contact Info) Description 08/04/2021 Transcribed Document [facility] [place] [address] ProviderElaine MD [address] [place], [place] [id number] Social History Tobacco Use Types Packs/Day Years [...] Conversion Note - Historical ProviderMD - 08/04/2021 9:12 PM CDT Consult Phone Call Documentation Entered On: 08/05/2021 5:38 EDT Performed On: 08/04/2021 21:12 EDT by ADEBAYO GONZALEZ Phone Call for Consults Consult Phone Call/Page Attempt : Other: done ADEBAYO GONZALEZ - 08/05/2021 5:38 EDT Electronically signed by Anahy [facility] Conversion Air Export Operations Agent Cerner at 05/27/2022 4:52 PM CDT documented in this encounter Plan of Treatment Upcoming Encounters Date Type Department Care Team (Late st Contact Info) Description 07/17/2024 11:[address] [facility] Wound & Ostomy Therapy [address] [place] [id number] 08/28/2024 9:15 AM EDT Office Visit [facility] Urology - [address] [place] [address] Chandrika Santana, COLLECTION AGENT [address] [place] [id number] 04/17/2025 8:30 AM EDT Office Visit [facility] Cardiology - [place] [address] [place] [address] Tamara Sow PA-C [address] [address] documented as of this encounter Visit Diagnoses Not on filedocumented in this encounter Care Teams In Flight Refueling Operator Relationship Specialty Start Date End Date Deandra Lopez, KRISTYN PCP - General Nurse Practitioner 04/18/22 06/03/24 Deandra Lopez, COLLECTION AGENT [address] [place] [address] PCP - General Nurse Practitioner 06/04/24 documented as of this encounter
--- OUTSIDE RECORDS SUMMARY | 2024-07-16 15:13 | XMS_ITS | Encounter Summary ---
Author Organization [facility] Address [address] [place] [address] Care Team Providers Care Upholstery Bundler Name Role Phone Deandra Lopez APRN Primary Care Provider +1- [phone] Deandra Lopez APRN Primary Care Provider +1- [phone] Encounter Details Date Type Department Care Team (Late st Contact Info) Description 08/06/2021 Transcribed Document [facility] [place] Family [facility] [place] [address] ProviderElaine MD [address] [place] [address] Social History Tobacco Use Types Packs/Day [...] Conversion Note - Historical ProviderMD - 08/06/2021 2:00 PM CDT On Going Discharge Planning Entered On: 08/06/2021 14:04 EDT Performed On: 08/06/2021 14:00 EDT by NOA LANDIN, RAYSA-Printed Circuit Layout TaperInlayer Silver Progress Note Discharge Arrangements : Patient Post-Acute Information Patient Name: DEMETRA MARTINEZ Gender: Female : [birth year] Age: 41 Years No Post-Acute Placement(s) Listed No Post-Acute Service(s) Listed No [place] Referral(s) Listed Patient Discharge Goal : Home Is the Patient Meeting Medical Necessity : Yes NOA LANDIN, RN-Printed Circuit Layout Taper - 08/06/2021 14:00 EDT Narrative Progress Note Narrative Progress Note : RRS: Low. LOS: 2 days. ELOS: 6 days. Chart reviewed. Pt is tolerating PO and has had a BM, despite continued c/o abdominal pain. Plans are home tomorrow if remains stable. No needs anticipated for home. CM will follow. NOA LANDIN RN-Printed Circuit Layout Taper - 08/06/2021 14:00 EDT Electronically signed by Ganesh Higginbotham Conversion Manager Strategic Partnerships Cerner at 05/27/2022 4:51 PM CDT documented in this encounter Plan of Treatment Upcoming Encounters Date Type Department Care Team (Late st Contact Info) Description 07/17/2024 11:00 AM EDT Appointment [facility] Wound & Ostomy Therapy [address] [place] [address] 08/28/2024 9:15 AM EDT Office Visit [facility] Urology - [address] [place] [address] Chandrika Santana, RAILROAD COOK [address] [place] [address] 04/17/2025 8:30 AM EDT Office Visit [facility] Cardiology - [place] [address] [place] [address] Tamara Sow PA-C [address] [facility] [address] [place] [address] documented as of this encounter Visit Diagnoses Not on filedocumented in this encounter Care Teams Upholstery Bundler Relationship Specialty Start Date End Date Deandra Lopez, KRISTYN PCP - General Nurse Practitioner 04/18/22 06/03/24 Deandra Lopez, RAILROAD COOK [address] [place] [address] PCP - General Nurse Practitioner 06/04/24 documented as of this encounter
--- OUTSIDE RECORDS SUMMARY | 2024-07-16 15:13 | XMS_ITS | Encounter Summary ---
Author Organization [facility] Address [address] [place] [address] Care Team Providers Care Yarder Name Role Phone Deandra Lopez APRN Primary Care Provider +1- [phone] Deandra Lopez APRN Primary Care Provider +1- [phone] Encounter Details Date Type Department Care Team (Late st Contact Info) Description 08/23/2021 Transcribed Document [facility] [facility] [place] [address] ProviderElaine MD [address] [place], [place] [id number] Social History Tobacco Use Types Packs/Day Years [...] Conversion Note - Historical ProviderMD - 08/23/2021 3:20 PM CDT Patient Resource Center Entered On: 08/23/2021 15:22 EDT Performed On: 08/23/2021 15:20 EDT by Laura Deluca, FIREWORKS ASSEMBLER Patient Resource Center Provider Status : EST Other Established Provider Name : Deandra Lopez Patient Phone Number : [phone] Patient Insurance Type : Medicaid (ex. [employer], Passport) Source of Referral : Case management Location of Patient : Case management referral Primary Care Scheduled : Yes Primary Care Scheduled Type : Non CMG Primary Care Provider Name : Deandra Lopez Primary Care Appointment Date/Time : 08/30/2021 9:00 EDT Specialty Care Scheduled : Already scheduled Specialty Type Scheduled1 : Colorectal Surgery, Infectious Disease Colorectal Provider Name : Ethan Diaz Colorectal Appointment Date/Time : 08/27/2021 14:30 EDT Infectious Disease Provider Name : Jose Beavers Infectious Disease Appointment Date/Time : 08/26/2021 12:45 EDT Qualify for Diabetes and/or Nutrition Referral : No Wound Care Appointment Made : No Why Patient Visited ED- Specialty spent : Other How Patient Arrived at ED : Other Primary Language : Chilean Patient Resource Center Comment : PCP and ID appts made, COLORECTAL appt already made Follow Up Needed : No Laura Deluca, FIREWORKS ASSEMBLER - 08/23/2021 15:20 EDT Electronically signed by Anahy [facility] Conversion Regulator Operator Cerner at 05/27/2022 4:35 PM CDT documented in this encounter Plan of Treatment Upcoming Encounters Date Type Department Care Team (Late st Contact Info) Description 07/17/2024 11:00 AM EDT Appointment [facility] Wound & Ostomy Therapy [address] [place] [address] 08/28/2024 9:15 AM EDT Office Visit [facility] Urology - [address] [place] [address] Chandrika Santana, DELIVERY REP [address] [place] [address] 04/17/2025 8:30 AM EDT Office Visit [facility] Cardiology - [place] [address] [place] [address] Tamara Sow PA-C 227 [facility] [address] [place] [address] documented as of this encounter Visit Diagnoses Not on filedocumented in this encounter Care Teams Yarder Relationship Specialty Start Date End Date Deandra Lopez, DELIVERY REP PCP - General Nurse Practitioner 04/18/22 06/03/24 Deandra Lopez, DELIVERY REP [address] [place] [address] PCP - General Nurse Practitioner 06/04/24 documented as of this encounter
--- OUTSIDE RECORDS SUMMARY | 2024-07-16 15:13 | XMS_ITS | Encounter Summary ---
Author Organization [facility] Address [address] [place] [address] Care Team Providers Care Nuclear Monitoring Technician Name Role Phone Deandra Lopez APRN Primary Care Provider +1- [phone] Deandra Lopez APRN Primary Care Provider +1- [phone] Encounter Details Date Type Department Care Team (Late st Contact Info) Description 08/04/2021 Transcribed Document [facility] [place] [facility] [place] [address] ProviderElaine MD [address] [place] [address] Social History Tobacco Use Types Packs/Day [...] Conversion Note - Historical ProviderMD - 08/04/2021 7:29 AM CDT Admission History, Adult Entered On: 08/04/2021 20:09 EDT Performed On: 08/04/2021 19:45 EDT by JOSELINE ABDI NON EMP RN Advance Directive Patient has Advance Directive *Q : Yes, Advance Directive not with the patient Advance Directive Type : Living will Copy Advance Directive Verified/on Chart : Yes Date Hospital Obtained Advance Directive : 07/28/2021 EDT JOSELINE ABDI NON EMP RN - 08/04/2021 20:07 EDT Anesthesia/Transfusion History Family History of Anesthesia Reaction : Prior transfusion without reaction Blood Transfusion Acceptable to Patient : Yes Transfusion History Comment : following 2004 Transfusion History : Prior anesthesia without reaction Family History of Anesthesia Reaction : Other: Mother has trouble waking up from anesthesia JOSELINE ABDI NON EMP RN - 08/04/2021 20:07 EDT Anticipated Discharge Needs Discharge To, Anticipated : Home JOSELINE ABDI NON EMP RN - 08/04/2021 20:07 EDT Education Topics, Admission Orientation DCP GENERIC CODE Advance Directives : Verbalizes understanding Allergy Band Applied : Verbalizes understanding Assessment/Vital Signs : Verbalizes understanding Bed Control : Verbalizes understanding Call Light : Verbalizes understanding Confidentiality : Verbalizes understanding Diet/Room Service : Verbalizes understanding Fall Prevention : Verbalizes understanding Hand Hygiene : Verbalizes understanding Healthcare Provider Visit : Verbalizes understanding ID Band Applied : Verbalizes understanding Isolation Precautions : Verbalizes understanding Orientation to Room/Bathroom : Verbalizes understanding Patient Bill of Rights : Verbalizes understanding Patient Rights/Responsibilities : Verbalizes understanding Patient Safety : Verbalizes understanding Personal Privacy Code : Verbalizes understanding Rapid Response Initiated by Patient/Family : Verbalizes understanding Rounding : Verbalizes understanding Siderails use/risks : Verbalizes understanding Skin Precautions : Verbalizes understanding Smoking Policy : Verbalizes understanding Telemetry Monitoring : Verbalizes understanding Television/Phone : Verbalizes understanding Visiting Policy : Verbalizes understanding JOSELINE ABDI NON EMP RN - 08/04/2021 20:07 EDT Functional Assessment Living Situation : Home Current Home Treatments : None JOSELINE ABDI NON EMP RN - 08/04/2021 20:07 EDT General Info Preferred Name : Demetra Arrived From : Home Mode of Arrival on Unit : Ambulatory Legal Guardian : Significant other Support Person/Pt Rep Contact Information : [phone] Want Family/Rep/Phys Notified of Admit : No Emergency Contact #1 : Lillie Sarmiento Emergency Contact #1 cell Emergency Contact #1 Relationship : boyfriend Emergency Contact #2 : - Emergency Contact #2 Phone Number : - Emergency Contact #2 Relationship : - Identified Medical Decision Maker : Lillie Sarmiento Identified Medical Decision Maker Identified Medical Decision Maker Class : sig other Chief Complaint : 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 Information Obtained From : Patient Primary Language : Grenadian Preferred Communication Mode : Verbal Communication Barrier : None Oil Separator Needed : No Objects to Sharing Info w Family : No JOSELINE ABDI NON EMP RN - 08/04/2021 20:07 EDT Fall Risk Scales ABCs Fall Injury Risk Identification : Coagulation, Surgery ABC Fall Injury Risk : Moderate to high injury risk Injury Moderate to High Risk Interventions : High Risk for Fall Injury sign in place per policy, Patient room close to nurses station, Transport methods appropriate to patient RODRIGUEZ Hx Falls Immediate/Within 3 Months : No Rodriguez Secondary Diagnosis : Yes RODRIGUEZ Use of Ambulatory Aid : Bed rest/Nurse assist RODRIGUEZ IV Therapy or IV Access : Yes Rodriguez Gait/Transferring : Weak Rodriguez Mental Status : Oriented to own ability Rodriguez Fall Risk Score : 45 RODRIGUEZ Fall Scale Risk Level : 25-45 Medium Risk Holt Fall Interventions : Adequate lighting, Assistive devices within reach, Bed in low position, Call device within reach, Fall prevention handout/education per facility policy, Hourly comfort/safety rounds, Non-slip footwear, Personal items within reach, Reinforced to call for assistance before getting out of bed, Room free of clutter/spills, Upper side-rails up, Wheels locked, Wires/Cords secured Barriers to Learning : None evident Fall Risk Scale Calc Temp : 1 JOSELINE ABDI NON EMP RN - 08/04/2021 20:07 EDT Health Histories Smoking Status : 5-9 cigarettes (between 1/4 to 1/2 pack)/day in last 30 days Smokeless Tobacco Status : Never Desires Tobacco Cessation Medication : No Reason for No Tobacco Cessation Medication : Refuses FDA approved medications Implant/Device Type, Distributing Clerk and Model : spinal cord stimulator JOSELINE ABDI NON EMP RN - 08/04/2021 20:07 EDT Social History (As Of: 08/04/2021 20:09:09 EDT) Tobacco: 5-9 cigarettes (between 1/4 to 1/2 pack)/day in last 30 days Smoking Status. Never Smokeless Tobacco Status. Years of Use: 20. Packs/Tins Daily: 0.3. Last Used: July 2021. (Last Updated: 07/27/2021 14:53:53 EDT by GENARO MACHADO RN) Alcohol: Alcohol Use History No. (Last Updated: 07/27/2021 14:53:57 EDT by GENARO MACHADO RN) Substance Abuse: Drug Use Hx: No. Use in Last 12 Months: Yes. THC vape pen Recreational Drug Type. Frequency: Socially. Drug Last Use: uses every couple weeks for anxiety. (Last Updated: 07/27/2021 14:54:48 EDT by GENARO MACHADO RN) Height and Weight, Clinical Dosing Height Source : Measured Height Entry Format : Obatech Height, Feet : 0 ft(Converted to: 0 cm, 0 Inch) Height, Inches : 64.75 Inch(Converted to: 5 ft 5 Inch, 164.46 cm) Clinical Height : 164.47 cm Weight Source : Standing scale Weight Entry Format : Obatech Clinical Dosing Weight : 110 kg Weight, Pounds : 242 lb Body Surface Area (BSA) : 2.14 m2 Body Mass Index : 40.7 kg/m2 (>HHI) [place] Body Weight : 56 kg JOSELINE ABDI NON EMP RN - 08/04/2021 20:07 EDT Infectious Disease History Does patient have symptoms of COVID-19? : No Tested for COVID19 in the past 14 days : No, Patient stated Does the Patient state known exposure to a COVID-19 positive case in the last 14 days? : No Patient Vaccinated for COVID-19 : Partially vaccinated or need booster Does Patient want a COVID-19 Vaccine? : Yes JOSELINE ABDI NON EMP RN - 08/04/2021 20:07 EDT Infectious Disease Risk Screening Grid Cough < 2 wks of unknown origin : NO Cough > 2 weeks : NO Blood in Sputum : NO Fever or self-reported Fever : NO Rash of unknown origin : NO Headache : NO Stiff neck : NO Night Sweats : NO Unexplained Weight Loss : NO Diarrhea (3 episode per day) : NO JOSELINE ABDI NON EMP RN - 08/04/2021 20:07 EDT Physical contact outside [place] in the last 30 days : No Hospitalized in Foreign Country : No Infectious Disease History : Chicken pox/Shingles, Other: fevers blisters Infectious Disease History Comment : denies prior + Covid INF Disease TB Screening Calc : 0 INF Disease Recent Travel Calc : 0 JOSELINE ABDI NON EMP RN - 08/04/2021 20:07 EDT Tetanus Immunization Status Previous Tetanus Immunizations : No qualifying data available. Tetanus Immunization : Greater than 10 years JOSELINE ABDI RAYSA SUE TABARES - 08/04/2021 20:07 EDT Influenza Vaccine Asmt, Adult Previous Vaccines from Immunization Schedule : No qualifying data available. Influenza Immunization, Current Season : Outside of influenza season JOSELINE ABDI RAYSA SUE TABARES - 08/04/2021 20:07 EDT Pneumococcal Vaccine Previous Vaccines from Immunization Schedule : No qualifying data available. Pneumonia Immunization Received : No Pneumococcal Risk Assessment < Age 65 : None JOHNNIEKWABENAJILLIANCallieTUNGERNA RAYSA SUE TABARES - 08/04/2021 20:07 EDT Order Details Transport Mode Order Detail : Wheelchair Isolation Precautions Order Detail : Standard Precautions Order Detail : 0 IV Order Detail : 1 Oxygen Order Detail : 1 Nurse Collect Order Detail : 0 Lift/Transfer : Minimal Central Line Order Detail : No Room Service : Appropriate Arterial Line : No Patient Needs Meds Crushed/Liquid : No JOSELINE ABDI NON EMP RN - 08/04/2021 20:07 EDT Nutrition History Feeding Ability : Independent Eating Poorly Due to Decreased Appetite : No Unplanned Weight Loss in Past 3-6 Months : No Malnutrition Screening Tool Total(mal) : 0 Malnutrition Screening Tool Risk Level : Patient not at risk JOSELINE ABDI RAYSA SUE TABARES - 08/04/2021 20:07 EDT Richardson Suicide Severity Rating Scale (C-SSRS) CSSRS Past Month Wish to be : No CSSRS Past Month Suicidal Thoughts : No CSSRS Lifetime Suicide Behavior : No Suicide Severity Rating Score : 0 Suicide Severity Rating : No Additional Care Required at this time JOHNNIEKWABENAJILLIANCallieJOSELINE RAYSA SUE TABARES - 08/04/2021 20:07 EDT Psychosocial History Does Someone Depend on You for Care? : No Do You Have a History of the Following? : Anxiety, Bipolar Disorder, Depression, Post Traumatic Stress Disorder Currently in Unsafe Situation : No JOSELINE ABDI NON EMP RN - 08/04/2021 20:07 EDT Sleep Apnea Risk Assmt BiPAP/CPAP Ordered for Home Use : Yes Hx of Obstructive Sleep Apnea Diagnosis : Yes BiPAP/CPAP Used at Home : Yes Age over 50 Years Old : No Gender Male : No JOSELINE ABDI NON EMP RN - 08/04/2021 20:07 EDT Spiritual/Cultural Needs Significant Loss/Crisis in Past 3 Years : No Any Spiritual/Cultural Needs or Requests : Yes Spiritual/Cultural Needs Comment : prayer on DOS 08/04/2021 Spiritual/Cultural Needs Comment : prayer on DOS 08/04/2021 JOSELINE ABDI NON EMP RN - 08/04/2021 20:07 EDT Valuables and Belongings Valuables and Belongings : Clothing Clothing : Common streetwear Clothing Disposition : With family JOSELINE ABDI NON EMP RN - 08/04/2021 20:07 EDT Electronically signed by Ganesh Higginbotham Conversion Grease Refining Supervisor Cerner at 05/27/2022 4:49 PM CDT documented in this encounter Plan of Treatment Upcoming Encounters Date Type Department Care Team (Late st Contact Info) Description 07/17/2024 11:00 AM EDT Appointment [facility] Wound & Ostomy Therapy [address] [place] [id number] 08/28/2024 9:15 AM EDT Office Visit [facility] Urology - [address] [place] [address] Chandrika Santana, SERVICE PERSON [address] [place] [address] 04/17/2025 8:30 AM EDT Office Visit [facility] Cardiology - [place] [address] [place] [address] Tamara Sow PA-C 227 [facility] [address] [place] [address] documented as of this encounter Visit Diagnoses Not on filedocumented in this encounter Care Teams Nuclear Monitoring Technician Relationship Specialty Start Date End Date Deandra Lopez APRN PCP - General Nurse Practitioner 04/18/22 06/03/24 Deandra Lopez, SERVICE PERSON [address] [place], [place] [id number] PCP - General Nurse Practitioner 06/04/24 documented as of this encounter
--- OUTSIDE RECORDS SUMMARY | 2024-07-16 15:13 | XMS_ITS | Encounter Summary ---
Author Organization [facility] Address [address] [place] [address] Care Team Providers Care Supervisor Insecticide Name Role Phone Deandra Lopez APRN Primary Care Provider +1- [phone] Deandra Lopez APRN Primary Care Provider +1- [phone] Encounter Details Date Type Department Care Team (Late st Contact Info) Description 08/23/2021 Transcribed Document [facility] [place] [address] ProviderElaine MD [address] [place] [address] Social History Tobacco Use Types [...] Conversion Note - Historical ProviderMD - 08/23/2021 10:34 AM CDT UM Authorization Entered On: 08/23/2021 10:36 EDT Performed On: 08/23/2021 10:34 EDT by Tonie Whelan, Staff Forester Primary Insurance Authorization Authorization and Policy Numbers : Insurance 1 Health Plan: [facility] Policy Number: [id number] Authorization Number: Insurance Primary Name : [facility] Policy Number: [id number] Authorization Status-Primary : Denied Reference Number-Primary : [id number] Authorized Service Begin Date-Primary : 08/20/2021 EDT Authorization Comments-Primary : Denied per fax 08/21/21 @ 3140 citing medical necessity. Placed in Denials 2021 folder. Historical Authorization Comments-Primary : Comment 1: ellen faxed per pa. clinical faxed via [employer] (Nicki Muniz Rn-Utilization Review 08/21/2021 13:37) Tonie Whelan, Staff Forester - 08/23/2021 10:34 EDT Electronically signed by Anahy [facility] Conversion Education Trainer Cerner at 05/27/2022 4:41 PM CDT documented in this encounter Plan of Treatment Upcoming Encounters Date Type Department Care Team (Late st Contact Info) Description 07/17/2024 11:00 AM EDT Appointment [facility] Wound & Ostomy Therapy [address] [place] [address] 08/28/2024 9:15 AM EDT Office Visit [facility] Urology - [address] [place] [address] Chandrika Santana, SEMICONDUCTORS WAFER BREAKER [address] [place] [address] 04/17/2025 8:30 AM EDT Office Visit [facility] Cardiology - [place] [address] [place] [address] Tamara Sow PA-C 227 [facility] [address] [place] [address] documented as of this encounter Visit Diagnoses Not on filedocumented in this encounter Care Teams Supervisor Insecticide Relationship Specialty Start Date End Date Deandra Lopez APRN PCP - General Nurse Practitioner 04/18/22 06/03/24 Deandra Lopez, SEMICONDUCTORS WAFER BREAKER [address] [place] [address] PCP - General Nurse Practitioner 06/04/24 documented as of this encounter
--- OUTSIDE RECORDS SUMMARY | 2024-07-16 15:13 | XMS_ITS | Encounter Summary ---
Author Organization [facility] In [facility]atives Address [address] [place] [address] Care Team Providers Care Insurance Attorney Name Role Phone Deandra Lopez APRN Primary Care Provider +1- [phone] Deandra Lopez APRN Primary Care Provider +1- [phone] Encounter Details Date Type Department Care Team (Late st Contact Info) Description 08/23/2021 Transcribed Document [facility] [place] [facility] [place] [address] ProviderElaine MD [address] [place] [address] Social History Tobacco Use Types Packs/Day [...] Conversion Note - Historical ProviderMD - 08/23/2021 6:47 AM CDT Patient: DEMETRA MARTINEZ Age: 41 Years Sex: Female : 1980 [employer] POST OP NOTE Subjective: Objective: Vitals Signs (last 24 hrs) Last Charted Minimum Maximum Temp 98.3 (AUG 23 06:26) 98.3 (AUG 23 06:26) 98.1 (AUG 22 14:49) Mon HR 82 (ADRIANA 18 06:26) 82 (AUG 23 06:) 99 (AUG 22 21:50) Resp Rate 15 (AUG 23 06:) 15 (AUG 23 06:26) 18 (AUG 22 18:15) SBP 107 (AUG 23:) 104 (AUG 22 18:15) 117 (AUG 22 21:50) DBP L 55 (AUG 23 06:) L 55 (AUG 23 06:) 69 (AUG 22 14:49) MAP 70 (AUG 23:) 70 (AUG 23 06:) 82 (AUG 22 14:49) SpO2 95 (AUG 23 06:) 95 (AUG 22 14:49) 97 (AUG 22 20:15) IV Fluids & Drains Last 24 Hours (7a-7a) Intake (1) Normal Saline 1,000 mL 1320 mL Intake Total: 1320mL Output (1) Surgical Drain/Tube Output: 350 mL Output Total: 350mL Exam: Abdomen soft. Wounds clean and intact. 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 Now readmitted with intra-abdominal abscess. Status post drainage with 2 pigtail catheters. Patient is tolerating p.o.'s and moving her bowels. Temp curve has normalized as has her heart rate and white count. I do note that patient's potassium is low at 2.9. She does not seem to have a lot of GI losses from either nausea or vomiting or diarrhea at this point. She came into the hospital with a potassium of 3.3. I suspect she could be discharged home on oral potassium. Plan: PICC line to be placed today. Anticipate discharge home today. May discharge home today if okay with infectious disease. Patient has received teaching on drain irrigation and we will provide supplies for her to do this at home. I have told the patient that I will follow-up with her by phone to set up CT scan for this coming Monday to follow-up on intra-abdominal abscesses. I will then arrange for follow-up in my office to have drains removed. Infectious disease to make recommendations on antibiotic management. Electronically signed by Ganesh Higginbotham Conversion Quality Control Projectionist Cerner at 05/27/2022 4:35 PM CDT documented in this encounter Plan of Treatment Upcoming Encounters Date Type Department Care Team (Late st Contact Info) Description 07/17/2024 11:00 AM EDT Appointment [facility] Wound & Ostomy Therapy [address] [place] [address] 08/28/2024 9:15 AM EDT Office Visit [facility] Urology - [address] [place] [address] Chandrika Santana, ELECTRIC DISTRIBUTION ENGINEER [address] [place] [address] 04/17/2025 8:30 AM EDT Office Visit [facility] Cardiology - [place] [address] [place] [address] Tamara Sow PA-C [address] [facility] [address] [place] [address] documented as of this encounter Visit Diagnoses Not on filedocumented in this encounter Care Teams Insurance Attorney Relationship Specialty Start Date End Date Deandra Lopez, KRISTYN PCP - General Nurse Practitioner 04/18/22 06/03/24 Deandra Lopez, ELECTRIC DISTRIBUTION ENGINEER [address] [place] [address] PCP - General Nurse Practitioner 06/04/24 documented as of this encounter
--- OUTSIDE RECORDS SUMMARY | 2024-07-16 15:13 | XMS_ITS | Encounter Summary ---
Author Organization [facility] In iatives Address [address] [place] [address] Care Team Providers Care Transit Coach Operator Name Role Phone Deandra Lopez APRN Primary Care Provider +1- [phone] Deandra Lopez APRN Primary Care Provider +1- [phone] Encounter Details Date Type Department Care Team (Late st Contact Info) Description 08/05/2021 Transcribed Document [facility] [place] [facility] [place] [address] ProviderElaine MD [address] [place] [id number] Social History Tobacco Use Types Packs/Day Years [...] Conversion Note - Historical ProviderMD - 08/05/2021 4:11 PM CDT Initial Discharge Planning Entered On: 08/05/2021 16:18 EDT Performed On: 08/05/2021 16:11 EDT by NOA LANDIN, RN-In Processing Instructor Initial Assessment I Previously Documented Living Environment : No qualifying data available. Living Situation : Home Patient Lives With : Dependent Child/Children, Significant other(s) Emergency Contact #1 : Lillie Sarmiento Emergency Contact #1 cell Emergency Contact #1 Relationship : boyfriend Emergency Contact #2 : Jacqueline Diaz Emergency Contact #2 Emergency Contact #2 Relationship : Sister Identified Medical Decision Maker : Self 2nd Ident. Medical Decision Maker : Jacqueline Diaz 2nd Ident. Medical Decision Maker 2nd Ident. Medical Decision Maker Class : Sister Enter Doctors Name : Deandra Lopez Does Patient have PCP Listed? : Yes Legal Guardian : No Date Hospital Obtained Advance Directive : 07/28/2021 EDT Is Guardianship Needed : No NOA LANDIN RN-In Processing Instructor - 08/05/2021 16:11 EDT Initial Assessment II Sensory and Motor Deficits : None Current Home Treatments and Equipment : CPAP NOA LANDIN RN-In Processing Instructor - 08/05/2021 16:11 EDT Discharge Needs I Anticipated Discharge Date : 08/07/2021 EDT Anticipated Discharge To, CM : Home with family care Current Home Treatment/Equipment : Current Home Treatment/Equipment No qualifying data available. Post Acute/Home Treatments : None Documentation Status Complete : Yes NOA LANDIN RN-In Processing Instructor - 08/05/2021 16:11 EDT Discharge Needs II Professional Skilled Services : Professional Skilled Services No qualifying data available. Needs Assistance with Transportation : No (Comment: Pt states that Lillie, her significant other, will transport home [NOA LANDIN RN-In Processing Instructor - 08/05/2021 16:11 EDT] ) Patient Discharge Goal : Home NOA LANDIN RN-In Processing Instructor - 08/05/2021 16:11 EDT Narrative Note Narrative Note : Received from PACU s/p subtotal colectomy. Met with Pt at the bedside. Role of CM explained. Pt states that she is ADL independent, lives with Lillie, significant other and her minor son. Jacqueline Diaz, sister [phone], is Pt's HCS, paperwork on the chart. Plans are to return home when discharged. No needs anticipated/verbalized at this time, RRS is low. CM will follow. NOA LANDIN RN-In Processing Instructor - 08/05/2021 16:11 EDT documented in this encounter Plan of Treatment Upcoming Encounters Date Type Department Care Team (Late st Contact Info) Description 07/17/2024 11:[address] [facility] Wound & Ostomy Therapy 1 [place] [address] 08/28/2024 9:15 AM EDT Office Visit [facility] Urology - [address] [place] [address] Chandrika Santana, CAB DRIVER [address] [place] [address] 04/17/2025 8:30 AM EDT Office Visit [facility] Cardiology - [place] [address] [place] [address] Tamara Sow PA-C 227 [facility] [address] [place] [address] documented as of this encounter Visit Diagnoses Not on filedocumented in this encounter Care Teams Transit Coach Operator Relationship Specialty Start Date End Date Deandra Lopez APRN PCP - General Nurse Practitioner 04/18/22 06/03/24 Deandra Lopez, CAB DRIVER [address] [place] [address] PCP - General Nurse Practitioner 06/04/24 documented as of this encounter
--- OUTSIDE RECORDS SUMMARY | 2024-07-16 15:13 | XMS_ITS | Encounter Summary ---
Author Organization [facility] Address [address] [place] [address] Care Team Providers Care Wet Cotton Feeder Name Role Phone Deandra Lopez APRN Primary Care Provider +1- [phone] Deandra Lopez APRN Primary Care Provider +1- [phone] Encounter Details Date Type Department Care Team (Late st Contact Info) Description 08/05/2021 Transcribed Document [facility] [place] [facility] [address] ProviderElaine MD [address] [place] [address] Social History Tobacco Use Types [...] On: 08/05/2021 5:15 EDT Performed On: 08/05/2021 1:15 EDT by Nubia French Lpn Intervention Information: ketorolac Performed by JOSELINE ABDI NON EMP RN on 08/05/2021 00:45:00 EDT ketorolac,15mg IV Push,Right Lower Forearm Pain Assessment Pain Assessment : Follow-up assessment Pain Scale Goal : 4 Pain Scale Used : 0-10 Scale Nubia French Lpn - 08/05/2021 5:14 EDT Pain Scale Intensity : 1 Nubia French Lpn - 08/05/2021 5:14 EDT Image 4 - Images currently included in the form version of this document have not been included in the text rendition version of the form. Electronically signed by Sean Higginbotham Conversion Light Rail Transit Operator Cerner at 05/27/2022 4:35 PM CDT documented in this encounter Plan of Treatment Upcoming Encounters Date Type Department Care Team (Late st Contact Info) Description 07/17/2024 11:[address] [facility] Wound & Ostomy Therapy 1 [place] [address] 08/28/2024 9:15 AM EDT Office Visit [facility] Urology - [address] [place] [address] Chandrika Santana, HAND EDGE BANDER [address] [place] [address] 04/17/2025 8:30 AM EDT Office Visit [facility] Cardiology - [place] [address] [place] [address] Tamara Sow PA-C [address] [facility] [address] [place] [address] documented as of this encounter Visit Diagnoses Not on filedocumented in this encounter Care Teams Wet Cotton Feeder Relationship Specialty Start Date End Date Deandra Lopez APRN PCP - General Nurse Practitioner 04/18/22 06/03/24 Deandra Lopez, HAND EDGE BANDER [address] [place] [address] PCP - General Nurse Practitioner 06/04/24 documented as of this encounter
--- OUTSIDE RECORDS SUMMARY | 2024-07-16 15:14 | XMS_ITS | Encounter Summary ---
Author Organization [facility] In iatives Address [address] [place] [address] Care Team Providers Care Vice President Commercial Bank Name Role Phone Deandra Schulz APRN Primary Care Provider +1- [phone] Deandra Schulz APRN Primary Care Provider +1- [phone] Encounter Details Date Type Department Care Team (Late st Contact Info) Description 08/24/2021 Transcribed Document [facility] [place] [facility] [address] ProviderElaine MD [address] [place] [address] Social History Tobacco Use Types [...] Cerner Conversion Note - Historical ProviderMD - 08/24/2021 1:17 PM CDT UM Authorization Entered On: 08/24/2021 13:17 EDT Performed On: 08/24/2021 13:17 EDT by Tonie Whelan, Mechanic Helper Primary Insurance Authorization Authorization and Policy Numbers : Insurance 1 Health Plan: [facility] Policy Number: [id number] Authorization Number: Insurance Primary Name : [facility] Policy Number: [id number] Authorization Status-Primary : Denied Auth/Referral Contact Name-Primary : DC+ Reference Number-Primary : [id number] Authorized Service Begin Date-Primary : 08/20/2021 EDT Authorization Comments-Primary : Discharge date and summary faxed. Historical Authorization Comments-Primary : Comment 1: Emailed to [facility] staff (WILMER SCHULZ RN 08/24/2021 11:15) Comment 2: Denied per fax 08/21/21 @ 0394 citing medical necessity. Placed in Denials 2021 folder. (Tonie Whelan, Mechanic Helper 08/23/2021 10:34) Comment 3: ellen faxed per pa. clinical faxed via [employer] (Nicki Muniz Rn-Utilization Review 08/21/2021 13:37) Tonie Whelan, Mechanic Helper - 08/24/2021 13:17 EDT documented in this encounter Plan of Treatment Upcoming Encounters Date Type Department Care Team (Late st Contact Info) Description 07/17/2024 11:00 AM EDT Appointment [facility] Wound & Ostomy Therapy 1 [place] [address] 08/28/2024 9:15 AM EDT Office Visit [facility] Urology - [address] [place] [address] Chandrika Santana, SENIOR GAME DESIGNER [address] [place] [address] 04/17/2025 8:30 AM EDT Office Visit [facility] Cardiology - [place] [address] [place] [address] Tamara Sow PA-C 227 [facility] 101 [place] [address] documented as of this encounter Visit Diagnoses Not on filedocumented in this encounter Care Teams Vice President Commercial Bank Relationship Specialty Start Date End Date Deandra Schulz, SENIOR GAME DESIGNER PCP - General Nurse Practitioner 04/18/22 06/03/24 Deandra Schulz, SENIOR GAME DESIGNER [address] [place] [address] PCP - General Nurse Practitioner 06/04/24 documented as of this encounter
--- OUTSIDE RECORDS SUMMARY | 2024-07-16 15:14 | XMS_ITS | Encounter Summary ---
Author Organization [facility] Address [address] [place] [address] Care Team Providers Care Summons Server Name Role Phone Deandra Schulz APRN Primary Care Provider +1- [phone] Deandra Schulz APRN Primary Care Provider +1- [phone] Encounter Details Date Type Department Care Team (Late st Contact Info) Description 08/24/2021 Transcribed Document [facility] [place] [address] ProviderElaine MD [address] [place] [address] Social History Tobacco Use Types [...] Conversion Note - Historical ProviderMD - 08/24/2021 11:15 AM CDT UM Authorization Entered On: 08/24/2021 11:15 EDT Performed On: 08/24/2021 11:15 EDT by WILMER SCHULZ RN Primary Insurance Authorization Authorization and Policy Numbers : Insurance 1 Health Plan: [facility] Policy Number: [id number] Authorization Number: Insurance Primary Name : [facility] Policy Number: [id number] Authorization Status-Primary : Denied Reference Number-Primary : [id number] Authorized Service Begin Date-Primary : 08/20/2021 EDT Authorization Comments-Primary : Emailed to [facility] staff Historical Authorization Comments-Primary : Comment 1: Denied per fax 08/21/21 @ 2907 citing medical necessity. Placed in Denials 2021 folder. (Tonie Whelan, Power Plant Operators Supervisor 08/23/2021 10:34) Comment 2: ellen faxed per pa. clinical faxed via [employer] (Nicki Muniz, Rn-Utilization Review 08/21/2021 13:37) WILMER SCHULZ RN - 08/24/2021 11:15 EDT Electronically signed by Anahy [facility] Conversion Narcotics And/Or Vice Detective Cerner at 05/27/2022 4:31 PM CDT documented in this encounter Plan of Treatment Upcoming Encounters Date Type Department Care Team (Late st Contact Info) Description 07/17/2024 11:[address] [facility] Wound & Ostomy Therapy 1 [place] [address] 08/28/2024 9:15 AM EDT Office Visit [facility] Urology - [place] [facility] [address] [place] [address] Chandrika Santana, COSMETIC CHEMIST [address] [place] [address] 04/17/2025 8:30 AM EDT Office Visit [facility] Cardiology - [place] [address] [place] [address] Tamara Sow PA-C 227 [facility] 101 [place] [address] documented as of this encounter Visit Diagnoses Not on filedocumented in this encounter Care Teams Summons Server Relationship Specialty Start Date End Date Deandra Schulz APRN PCP - General Nurse Practitioner 04/18/22 06/03/24 Deandra Schulz, COSMETIC CHEMIST [address] [place] [address] PCP - General Nurse Practitioner 06/04/24 documented as of this encounter
--- OUTSIDE RECORDS SUMMARY | 2024-07-16 15:14 | XMS_ITS | Encounter Summary ---
Author Organization [facility] Address [address] [place] [address] Care Team Providers Care Equipment Lead Name Role Phone Deandra Lopez APRN Primary Care Provider +1- [phone] Deandra Lopez APRN Primary Care Provider +1- [phone] Encounter Details Date Type Department Care Team (Late st Contact Info) Description 08/06/2021 Transcribed Document [facility] [place] [facility] [place] [address] ProviderElaine MD [address] [place] [address] Social History Tobacco Use Types [...] Conversion Note - Historical ProviderMD - 08/06/2021 11:59 AM CDT Patient: DEMETRA MARTINEZ Age: 41 Years Sex: Female : 1980 Subjective Still having pain, nausea. Was able to eat some mashed potatoes and Jell-O. Had a bowel movement this morning.. Leukocytosis has resolved Vital Signs T: 37.4 ??C TMIN: 36.9 ??C TMAX: 37.4 ??C HR: 102 RR: 16 BP: 121/66 SpO2: 95% Oxygen Settings (Last) Oxygen Therapy Mode: Room air (08/06/21 08:28:00) Oxygen Flow Rate: 0 Liter/Min (08/04/21 22:00:00) Intake & Output Totals Last 24 Hours (7a-7a) Input Total: 1400.55 mL Output Total: 1300 mL Balance: 100.55 mL Physical Exam General: Alert, obese, appears uncomfortable Neurologic: Moves all 4 extremities spontaneously, oriented [...] s/p partial colectomy with ileorectal anastomosis POD 2 Advance diet Colorectal surgery following: Recommend continue with Valium and ambulation for now #Diabetes Hold home meds, cover with SSI #Bipolar depression Continue prazosin, Vraylar, Xanax,, Lamictal #Hypothyroidism Synthroid Disposition: Okay to discharge from medicine stand point once cleared by surgeon, hopefully tomorrow *Summary of hospitalization and events up to this point/preliminary discharge note to be found under hospital course under provider view tab VTE Prophylaxis - Medical Heparin 5,000 Units, SubCutaneous, Inj, Q8H, Routine, Start 08/04/21 22:00:00 EDT, 08/04/21 18:36:00 EDT (HEATH ROBLEDO) Sequential Compression Device Start: 08/04/21 21:12:00 EDT, Bilateral, Length: Knee High, While patient is in bed, Continuous Order (SHELLIE CANALES) Medications acetaminophen, 1000 mg= 2 Tab, Oral, Q6H aluminum hydroxide/magnesium hydroxide/simethicone 200 mg-200 mg-20 mg/5 mL oral suspension, 15 mL, Oral, Q4H, PRN alvimopan, 12 mg= 1 Cap, Oral, BID [...] heparin, 5000 Units= 1 mL, SubCutaneous, Q8H Imdur, 30 mg= 1 Tab, Oral, QAM insulin lispro sliding scale, Scale A:, SubCutaneous, AC and at Bedtime ketorolac, 15 mg= 0.5 mL, IV Push, Q6H lamoTRIgine, 100 mg= 1 Tab, Oral, BID [...] 5 mg= 1 Tab, Oral, Q6H, PRN prazosin, 2 mg= 2 Cap, Oral, Daily prazosin, 8 mg= 8 Cap, Oral, At Bedtime Pristiq, 100 mg= 2 Tab, Oral, Daily Provigil, 200 mg= 1 Tab, Oral, QAM Vascepa, 1 Gm, Oral, Daily Vistaril, 50 mg= 2 Cap, Oral, TID Vitamin D2, 96995 Units= 1 Cap, Oral, Weekly Vraylar, 3 mg= 2 Cap, Oral, Daily Xanax, 1 mg= 2 Tab, Oral, TID Lab Results Test Name Test Result Date/Time Sodium Level 133 mmol/L (Low) 08/06/2021 07:21 EDT Potassium Level 3.9 mmol/L 08/06/2021 07:21 EDT Chloride Level 104 mmol/L 08/06/2021 07:21 EDT Carbon Dioxide Level 21 mmol/L 08/06/2021 07:21 EDT Anion Gap 12 08/06/2021 07:21 EDT Glucose Level 168 mg/dL (High) 08/06/2021 07:21 EDT Blood Urea Nitrogen 5 mg/dL (Low) 08/06/2021 07:21 EDT Creatinine Level 1.00 mg/dL 08/06/2021 07:21 EDT eGFR >60 mL/min/1.73m2 08/06/2021 07:21 EDT eGFR NonAfrican >60 mL/min/1.73m2 08/06/2021 07:21 EDT Bun/Creatinine 4.5 (Low) 08/06/2021 07:21 EDT Calcium Level 8.4 mg/dL 08/06/2021 07:21 EDT Device Comment 1 Notified Nurse RBV 08/06/2021 10:38 EDT Device Comment 1 Notified Nurse RBV 08/06/2021 05:33 EDT Device Comment 1 Notified Nurse RBV 08/05/2021 20:31 EDT Device Comment 1 Protocols Followed 08/05/2021 15:42 EDT Glucose POC2 130 mg/dL (High) 08/06/2021 10:38 EDT Glucose POC2 172 mg/dL (High) 08/06/2021 05:33 EDT Glucose POC2 131 mg/dL (High) 08/05/2021 20:31 EDT Glucose POC2 137 mg/dL (High) 08/05/2021 15:42 EDT WBC 7.6 K/uL 08/06/2021 07:21 EDT RBC 3.90 Million/uL (Low) 08/06/2021 07:21 EDT Hgb 11.4 g/dL 08/06/2021 07:21 EDT Hct 33.2 % (Low) 08/06/2021 07:21 EDT MCV 85.1 fL 08/06/2021 07:21 EDT MCH 29.2 pg 08/06/2021 07:21 EDT MCHC 34.3 Gram/dL 08/06/2021 07:21 EDT Platelet Count 206 K/uL 08/06/2021 07:21 EDT MPV 9.5 fL 08/06/2021 07:21 EDT RDW 12.3 % 08/06/2021 07:21 EDT Slide Review No 08/06/2021 07:21 EDT Electronically signed by Anahy, [facility] Conversion Life Science Teacher Cerner at 05/27/2022 4:53 PM CDT documented in this encounter Plan of Treatment Upcoming Encounters Date Type Department Care Team (Late st Contact Info) Description 07/17/2024 11:00 AM EDT Appointment [facility] Wound & Ostomy Therapy 1 [place] [address] 08/28/2024 9:15 AM EDT Office Visit [facility] Urology - [address] [place] [address] Chandrika Santana, DIETARY SUPERVISOR [address] [place] [address] 04/17/2025 8:30 AM EDT Office Visit [facility] Cardiology - [place] [address] [place] [address] Tamara Sow PA-C 227 [facility] 101 [place] [address] documented as of this encounter Visit Diagnoses Not on filedocumented in this encounter Care Teams Equipment Lead Relationship Specialty Start Date End Date Deandra Lopez APRN PCP - General Nurse Practitioner 04/18/22 06/03/24 Deandra Lopez, DIETARY SUPERVISOR [address] [place] [address] PCP - General Nurse Practitioner 06/04/24 documented as of this encounter
--- OUTSIDE RECORDS SUMMARY | 2024-07-16 15:15 | XMS_ITS | Encounter Summary ---
Author Organization [facility] In [facility]atives Address [address] [place] [address] Care Team Providers Care Wood Boatbuilder Apprentice Name Role Phone Deandra Lopez APRN Primary Care Provider +1- [phone] Deandra Lopez APRN Primary Care Provider +1- [phone] Encounter Details Date Type Department Care Team (Late st Contact Info) Description 08/06/2021 Transcribed Document [facility] [place] Family Medicine [facility] [place] [address] ProviderElaine MD [address] [place] [address] Social History Tobacco Use Types Packs/Day [...] Conversion Note - Historical ProviderMD - 08/06/2021 8:30 AM CDT Patient: DEMETRA MARTINEZ Age: 41 Years Sex: Female : 1980 CSGA POST OP NOTE Subjective: Objective: Vitals Signs (last 24 hrs) Last Charted Minimum Maximum Temp 99.3 (AUG 06 07:08) 98.6 (AUG 06 02:40) 99.3 (AUG 06 07:08) Apical HR 81 (AUG 05 21:57) 81 (AUG 05 21:57) 81 (AUG 05 21:57) Mon HR 102 (AUG 06 07:08) 75 (AUG 05 18:16) 102 (AUG 06 07:08) Resp Rate 16 (AUG 06 07:00) 16 (AUG 06 07:00) H 22 (AUG 05 22:00) SBP 121 (AUG 06 07:08) 96 (AUG 05 11:30) 121 (AUG 06 02:40) DBP 66 (AUG 06 07:08) L 52 (AUG 05 16:03) 71 (AUG 06 02:40) MAP 79 (AUG 06 07:08) 63 (AUG 05 11:30) 81 (AUG 05 22:00) SpO2 95 (AUG 06 08:28) 95 (AUG 05 11:30) 97 (AUG 05 18:16) IV Fluids & Drains Last 24 Hours (7a-7a) Intake (1) Dextrose 5% with 0.45% NaCl and KCl 20 mEq/L 1,000 mL 300 mL Intake Total: 300mL Output (0) No drain output events found in the last 24 hours. Exam: Abdomen soft. Wounds clean and intact. Impression: S/P status post subtotal colectomy and ileorectal anastomosis. Patient having a good deal of crampy abdominal pain consistent with postoperative ileus resolution. She has received Valium with some help. She had a small bowel movement. Currently not nauseous. Labs reviewed and okay. Plan: Would like to keep in hospital today to assure myself that ileus is completely resolved. Have encouraged her to continue with Valium and ambulation. Check labs in AM. documented in this encounter Plan of Treatment Upcoming Encounters Date Type Department Care Team (Late st Contact Info) Description 07/17/2024 11:00 AM EDT Appointment [facility] Wound & Ostomy Therapy 1 [place] [address] 08/28/2024 9:15 AM EDT Office Visit [facility] Urology - [address] [place] [address] Chandrika Santana, VICE PRESIDENT OF SOFTWARE ENGINEERING [address] [place] [address] 04/17/2025 8:30 AM EDT Office Visit [facility] Cardiology - [place] [address] [place] [address] Tamara Sow PA-C [address] [facility] [address] [place] [address] documented as of this encounter Visit Diagnoses Not on filedocumented in this encounter Care Teams Wood Boatbuilder Apprentice Relationship Specialty Start Date End Date Deandra Lopez APRN PCP - General Nurse Practitioner 04/18/22 06/03/24 Deandra Lopez, KRISTYN [address] [place] [address] PCP - General Nurse Practitioner 06/04/24 documented as of this encounter
--- OUTSIDE RECORDS SUMMARY | 2024-07-16 15:15 | XMS_ITS | Encounter Summary ---
Author Organization [facility] In [facility] Address [address] [place] [address] Care Team Providers Care Supervisor Telephone Information Name Role Phone Deandra Lopez APRN Primary Care Provider +1- [phone] Deandra Lopez APRN Primary Care Provider +1- [phone] Encounter Details Date Type Department Care Team (Late st Contact Info) Description 08/05/2021 Transcribed Document [facility] [place] [facility] [place] [address] ProviderElaine MD [address] [place], [place] [id number] Social History Tobacco Use Types Packs/Day Years Used Date Smoking Tobacco: Never Assessed Comments Unknown Sex and Gender Information Value Date Recorded Sex Assigned at Female 12/08/2021 2:39 PM CDT Legal Sex Female 5:20 PM CDT Gender Identity Female 12/08/2021 2:39 PM CDT Sexual Orientation Straight 12/08/2021 2: 39 PM CDT documented as of this encounter Miscellaneous Notes * Agata Conversion Note - Historical ProviderMD - 08/05/2021 2:00 AM CDT Supervisor Specialty Plant Details Entered On: 08/05/2021 5:15 EDT Performed On: 08/05/2021 2:00 EDT by Nubia French Lpn Order Details Transport Mode Order Detail : Wheelchair Isolation Precautions Order Detail : Standard Precautions Order Detail : 0 IV Order Detail : 1 Oxygen Order Detail : 1 Nurse Collect Order Detail : 0 Lift/Transfer : Minimal Central Line Order Detail : No Room Service : Appropriate Arterial Line : No Patient Needs Meds Crushed/Liquid : No FrenchTanNubia L, Stations Superintendent - 08/05/2021 5:15 EDT documented in this encounter Plan of Treatment Upcoming Encounters Date Type Department Care Team (Late st Contact Info) Description 07/17/2024 11:00 AM EDT Appointment [facility] Wound & Ostomy Therapy 1 [place] [address] 08/28/2024 9:15 AM EDT Office Visit [facility] Urology - [address] [place] [address] Chandrika Santana, DELIVERY AND INSTALLATION SUBCONTRACTOR [address] [place] [address] 04/17/2025 8:30 AM EDT Office Visit [facility] Cardiology - [place] [address] [place] [address] Tamara Sow PA-C [address] [facility] [address] [place] [address] documented as of this encounter Visit Diagnoses Not on filedocumented in this encounter Care Teams Supervisor Telephone Information Relationship Specialty Start Date End Date Deandra Lopez APRN PCP - General Nurse Practitioner 04/18/22 06/03/24 Deandra Lopez, DELIVERY AND INSTALLATION SUBCONTRACTOR [address] [facility] [place] [address] PCP - General Nurse Practitioner 06/04/24 documented as of this encounter
--- OUTSIDE RECORDS SUMMARY | 2024-07-16 15:15 | XMS_ITS | Encounter Summary ---
Author Organization Healthcare Address [address] [place] [address] Care Team Providers Care Er Manager Name Role Phone JohnDeandra Jeb SIMONS Primary Care Provider +1- [phone] Encounter Details Date Type Department Care Team (Late st Contact Info) Description 02/14/2024 Orders Only External Location [address] [place] [id number] Provider, External Social History Tobacco Use Types Packs/Day Years [...] Medicine [address] [place] [address] Kishor Mcdonald MD [address] [place] [address] documented as of this encounter Procedures Procedure Name Priority Date/Time Associated Diagnosis Comments POC ULTRASOUND 02/14/2024 documented in this encounter Results * POC Imaging (02/14/2024) Anatomical Region Laterality Modality Pelvis Other 02/14/2024 us External Provider IMG POINT OF CARE ULTRASOUND F inal Result documented in this encounter Visit Diagnoses Not on filedocumented in this encounter Additional Health Concerns Assessment Noted Time PHQ-9 Depression Total Score: 0 01/16/20 9:43 AM EST A fall risk assessment has been complete d for the patient 02/14/2024 9:49 AM EST A Body Mass Index follow-up plan has been documented for the patient 02/14/2024 11:25 AM EST documented as of this encounter Care Teams Er Manager Relationship Specialty Start Date End Date Deandra Lopez APRN [address] [place] [address] PCP - General 10/18/23 documented as of this encounter
--- OUTSIDE RECORDS SUMMARY | 2024-07-16 15:15 | XMS_ITS | Encounter Summary ---
Author Organization [facility] In iatives Address [address] [place] [address] Care Team Providers Care Auto Service Advisor Name Role Phone Deandra Lopez APRN Primary Care Provider +1- [phone] Deandra Lopez APRN Primary Care Provider +1- [phone] Encounter Details Date Type Department Care Team (Late st Contact Info) Description 08/05/2021 Transcribed Document [facility] Family Medicine [facility] [place] [address] ProviderElaine MD [address] [place] [address] Social History Tobacco Use Types Packs/Day [...] Conversion Note - Historical ProviderMD - 08/05/2021 6:38 AM CDT Patient: DEMETRA MARTINEZ Age: 41 Years Sex: Female : 1980 [employer] POST OP NOTE Subjective: Objective: Vitals Signs (last 24 hrs) Last Charted Minimum Maximum Temp 98.4 (AUG 05 05:48) 97.7 (AUG 04 22:00) 98 (AUG 04 11:19) Apical HR 85 (VALENCIA 29 22:23) 85 (AUG 04 22:23) 85 (AUG 04 22:23) Mon HR 89 (AUG 05 05:48) 67 (AUG 04 14:00) 89 (AUG 05 04:02) Resp Rate 16 (AUG 05 05:48) 16 (AUG 04 11:19) H 22 (AUG 04 18:35) SBP 111 (AUG 05 05:48) 94 (AUG 04 18:40) 119 (AUG 04 11:19) DBP 60 (AUG 05 05:48) L 52 (AUG 04 14:00) 72 (AUG 05 04:02) MAP 76 (AUG 05 05:48) 67 (AUG 04 18:40) 86 (AUG 05 04:02) SpO2 95 (AUG 05 05:48) 95 (AUG 05 05:48) 100 (AUG 04 18:25) IV Fluids & Drains Last 24 Hours (7a-7a) Intake (1) Dextrose 5% with 0.45% NaCl and KCl 20 mEq/L 1,000 mL 1337 mL Intake Total: 1337mL Output (0) No drain output events found in the last 24 hours. Exam: Abdomen soft. Wounds clean and intact. 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 Patient had 1 episode of emesis last evening. She has been having some abdominal spasms. Other than this, she is doing fairly well. Batres catheter is out and she has voided. Pain is under better control today. A.m. labs look okay. Plan: Soft GI Diet. D/C batres. Done Up and walking 4 times daily. Limit IV narcotic pain medicine. Decrease IVF to 75ml/hr. May shower. Anticipate home tomorrow. documented in this encounter Plan of Treatment Upcoming Encounters Date Type Department Care Team (Late st Contact Info) Description 07/17/2024 11:00 AM EDT Appointment [facility] Wound & Ostomy Therapy [address] [place] [address] 08/28/2024 9:15 AM EDT Office Visit [facility] Urology - [address] [place] [address] Chandrika Santana APRN [address] [place] [address] 04/17/2025 8:30 AM EDT Office Visit [facility] Cardiology - [place] [address] [place] [address] Tamara Sow PA-C [address] [place] [address] documented as of this encounter Visit Diagnoses Not on filedocumented in this encounter Care Teams Auto Service Advisor Relationship Specialty Start Date End Date Deandra Lopez, KRISTYN PCP - General Nurse Practitioner 04/18/22 06/03/24 Deandra Lopez, SALES EXEC[employer]IVE INSURANCE [address] [place] [address] PCP - General Nurse Practitioner 06/04/24 documented as of this encounter
--- OUTSIDE RECORDS SUMMARY | 2024-07-16 15:15 | XMS_ITS | Encounter Summary ---
Author Organization Healthcare Address [address] [place] [address] Care Team Providers Care Financial Services Education Consultant Name Role Phone John Deandra Russ APRN Primary Care Provider +1- [phone] Reason for Visit * Reason Comments Med Refill Encounter Details Date Type Department Care Team (Late st Contact Info) Description 03/19/2024 Refill Interventional Pain Medicine [address] [place] [address] Henrry Acharya MD [address] [place], [place] [id number] Social History Tobacco Use Types Packs/Day Years [...] EDT Office Visit Interventional Pain Medicine [address] [place] [address] Kishor Mcdonald MD [address] [place] [address] documented as of this encounter [...] documented as of this encounter Care Teams Financial Services Education Consultant Relationship Specialty Start Date End Date Deandra Lopez APRN [address] [place] [address] PCP - General 10/18/23 documented as of this encounter
--- OUTSIDE RECORDS SUMMARY | 2024-07-16 15:15 | XMS_ITS | Encounter Summary ---
Author Organization [facility] Address [address] [place] [address] Care Team Providers Care Financial Services Auditor Name Role Phone Deandra Schulz APRN Primary Care Provider +1- [phone] Deandra Schulz APRN Primary Care Provider +1- [phone] Encounter Details Date Type Department Care Team (Late st Contact Info) Description 08/31/2021 Transcribed Document [facility] [place] [facility] [place] [address] ProviderElaine MD [address] [place] [address] Social History Tobacco Use Types [...] Conversion Note - Historical ProviderMD - 08/31/2021 2:22 PM CDT UM Authorization Entered On: 08/31/2021 14:22 EDT Performed On: 08/31/2021 14:22 EDT by TYREL SALDANA, Die Drawing Checker Primary Insurance Authorization Authorization and Policy Numbers : Insurance 1 Health Plan: [facility] Policy Number: [id number] Authorization Number: Insurance Primary Name : [facility] Policy Number: [id number] Authorization Status-Primary : Denied Auth/Referral Contact Name-Primary : DC+ Reference Number-Primary : [id number] Authorized Service Begin Date-Primary : 08/20/2021 EDT Authorization Comments-Primary : Rec fax 08/31/21 re: P2P outcome Placed fax in Denials 2021 bucket for JJ to review Historical Authorization Comments-Primary : Comment 1: Discharge date and summary faxed. (Tonie Whelan, Camera Person 08/24/2021 13:17) Comment 2: Emailed to [facility] staff (WILMER SCHULZ RN 08/24/2021 11:15) Comment 3: Denied per fax 08/21/21 @ [id number] citing medical necessity. Placed in Denials 2021 folder. (Tonie Whelan, Camera Person 08/23/2021 10:34) Comment 4: ellen faxed per dhiraj. clinical faxed via cortex (Nicki Muniz Rn-Utilization Review 08/21/2021 13:37) TYREL SALDANA, Die Drawing Checker - 08/31/2021 14:22 EDT documented in this encounter Plan of Treatment Upcoming Encounters Date Type Department Care Team (Late st Contact Info) Description 07/17/2024 11:00 AM EDT Appointment [facility] Wound & Ostomy Therapy [address] [place] [address] 08/28/2024 9:15 AM EDT Office Visit [facility] Urology - [address] [place] [address] Chandrika Santana, DIAL LATHE OPERATOR [address] [place] [address] 04/17/2025 8:30 AM EDT Office Visit [facility] Cardiology - [address] [place] [address] Tamara Sow PA-C [address] [facility] [address] [place] [address] documented as of this encounter Visit Diagnoses Not on filedocumented in this encounter Care Teams Financial Services Auditor Relationship Specialty Start Date End Date Deandra Schulz APRN PCP - General Nurse Practitioner 04/18/22 06/03/24 Deandra Schulz, DIAL LATHE OPERATOR [address] [place] [address] PCP - General Nurse Practitioner 06/04/24 documented as of this encounter
--- OUTSIDE RECORDS SUMMARY | 2024-07-16 15:16 | XMS_ITS | Encounter Summary ---
Author Organization [facility] Address [address] [place] [address] Care Team Providers Care Prototype Technician Name Role Phone Deandra Schulz APRN Primary Care Provider [phone] Deandra Schulz APRN Primary Care Provider [phone]- [phone] Encounter Details Date Type Department Care Team (Late st Contact Info) Description 08/08/2021 Transcribed Document [facility] Family Medicine [facility] [place] [address] ProviderElaine MD [address] [place] [id number] Social History Tobacco Use Types Packs/Day [...] Cerner Conversion Note - Elaine ProviderMD - 08/08/2021 11:50 AM CDT [facility] [place] [address] DEMETRA MARTINEZ :1980 Visit Time:08/04/2021 Your Visit Summary Your Care Team Admitting Physician - HEATH ROBLEDO MD-PRO Attending Physician - HEATH ROBLEDO MD-PRO Primary Care Physician - DEANDAR SCHULZ NP-FAM Referring Physician - PHY, NOT LISTED Your Diagnosis S/P colectomy Chronic idiopathic constipation Diabetes mellitus type 2, noninsulin dependent Hyperlipidemia Anxiety / depression / Bipolar / PTSD Thyroid disease GERD - Gastro-esophageal reflux disease Constipation, unspecified, Constipation, unspecified Need for COVID-19 vaccine These Are Your Goals Patient Discharge Goal Patient Discharge Goal: Home Discharge Vitals Temperature 37.2 ??C Heart Rate (Monitored) 104 Respiratory Rate 18 Blood Pressure 121/78 What to do next Instructions From Your Care Team Discharge Activity: Discharge Activity: Activity as tolerated Diet: Discharge Diet: Heart healthy diet Follow-Up Appointments Follow Up with DEANDRA SCHULZ NP-FAM When Within 1 to 2 weeks Comments Call for follow up appointment Where: [address] [place] [address]- Follow Up with HEATH ROBLEDO When Within 1 to 2 weeks Comments Call for follow up appointment Where: [address] [address]- Business (1) Medications What How Much When Instructions Next Dose acetaminophen-oxyCODONE (Percocet 5 mg-325 mg oral tablet) 1 Tablet(s) Oral Every 6 Hours as needed for as needed for pain Not to exceed 6 tablets daily Pickup at [id number] icosapent (Vascepa) 1 Gm Oral Every Morning and 2 grams by mouth every evening. modafinil (Provigil 200 mg oral tablet) 1 Tablet(s) Oral Every Morning ALPRAZolam (Xanax 1 mg oral tablet) 1 Tablet(s) Oral Three Times A Day atorvastatin (Lipitor 80 mg oral tablet) 1 Tablet(s) Oral At Bedtime busPIRone (BuSpar) 10 Milligram(s) Oral Three Times A Day cariprazine (Vraylar) 3 Milligram(s) Oral Every Day cholecalciferol (Vitamin D3 50,000 units oral capsule) 1 Capsule(s) Oral Weekly usually on Mon desvenlafaxine (Pristiq) 100 Milligram(s) Oral Every Day esomeprazole (NexIUM 40 mg oral delayed release capsule) 1 Capsule(s) Oral Every Day estradiol 2 Milligram(s) Oral Every Day hydrOXYzine (Vistaril) 50 Milligram(s) Oral Three Times A Day isosorbide mononitrate (Imdur) 30 Milligram(s) Oral Every Morning lamoTRIgine (lamoTRIgine 100 mg oral tablet) 1 Tablet(s) Oral Two Times A Day levothyroxine (levothyroxine 125 mcg (0.125 mg) oral tablet) 1 Tablet(s) Oral Every Day melatonin (Melatonin) 3 Milligram(s) Oral At Bedtime metFORMIN 500 Milligram(s) Oral Every Day metoprolol (Metoprolol Tartrate) 75 Milligram(s) Oral Two Times A Day mirabegron (Myrbetriq) 50 Milligram(s) Oral Every Day prazosin 8 Milligram(s) Oral At Bedtime prazosin 2 Milligram(s) Oral Every Day Am dose Pharmacy Information [facility] #[id number]: [address] [place] [phone] Take your medications faithfully. Do NOT skip [...] This Visit No Immunizations Found Education Materials How to Prevent Constipation After Surgery Constipation is a common problem after surgery. Many things can make constipation more likely after a surgery, including: ??? Certain medicines, especially numbing medicines (anesthetics) and very strong pain medicines called opioids. ??? Feeling stressed because of the surgery. ??? Eating different foods than normal. ??? Being less active. Symptoms of constipation include: ??? Having fewer than three bowel movements a week. ??? Straining to have a bowel movement. ??? Having hard, dry, or gzmyhh-nmdx-miaqgv stools (feces). ??? Discomfort in the lower abdomen, such as cramps or bloating. ??? Not feeling relief after having a bowel movement. ??? Nausea and vomiting. You can take steps to help prevent constipation after surgery. Follow these instructions at home: Eating and drinking ??? Eat foods that have a lot of fiber in them, such as beans, bran, whole grains, and fresh fruits and vegetables. ??? Limit foods that are high in fat and processed sugars, such as fried or sweet foods. These include korean fries, hamburgers, cookies, and candy. ??? Take a fiber supplement as told by your health care provider. If you are not taking a fiber supplement and you think you are not getting enough fiber from foods, talk to your health care provider about adding a fiber supplement to your diet. ??? Drink enough fluid to keep your urine pale yellow. ??? Drink clear fluids, especially water. Avoid drinking alcohol, caffeine, and soda. These can make constipation worse. Activity ??? After surgery, return to your normal activities slowly, or when your health care provider says it is okay. ??? Start walking as soon as you can. Try to go a little farther each day. ??? Once your health care provider approves, do some sort of regular exercise. This helps prevent constipation. Bowel movements ??? Go to the restroom when you have the urge to go. Do not hold it in. ??? Try drinking something hot to get a bowel movement started. ??? Keep track of how often you use the restroom. Medicines ??? Take vfwm-zgq-wwofvpj and prescription medicines only as told by your health care provider. ??? Talk to your health care provider about medicines that may help prevent constipation, particularly if you have a history of constipation. Your health care provider may suggest a stool softener, laxative, or fiber supplement. ??? Do not take any medicines without talking to your health care provider first. Contact a health care provider if: ??? You used stool softeners or laxatives and still have not had a bowel movement within 24???48 hours after using them. ??? You have not had a bowel movement in 3 days. ??? You have a fever. Get help right away if you have: ??? Constipation that lasts for more than 4 days or if your symptoms get worse. ??? Bright red blood in your stool. ??? Pain in the abdomen or rectum. ??? Very bad cramping. ??? Thin, pencil-like stools. ??? Unexplained weight loss. Summary ??? Constipation is a common problem after surgery. Many things can make constipation more likely after a surgery, including certain medicines, eating different foods than normal, and being less active. ??? Symptoms of constipation include having fewer than three bowel movements a week, straining to have a bowel movement, and cramps or bloating in the lower abdomen. ??? To help prevent constipation, you should eat foods that are high in fiber, drink plenty of fluids, and get regular physical activity. ??? Your health care provider may suggest medicines, such as stool softeners or laxatives, to help prevent constipation. This information is not intended to replace advice given to you by your health care provider. Make sure you discuss any questions you have with your health care provider. Document Revised: 12/11/2019 Document Reviewed: 12/11/2019 [employer] Patient Education ?? 2020 [employer] Minimally Invasive Total Colectomy, Care After This sheet gives you information about how to care for yourself after your procedure. Your health care provider may also give you more specific instructions. If you have problems or questions, contact your health care provider. What can I expect after the procedure? After your procedure, it is common to have the following: ??? Pain in your abdomen, especially in the incision areas. You will be given medicine to control the pain. ??? Tiredness. This is a normal part of the recovery process. Your energy level will return to normal over the next several weeks. ??? Changes in your bowel movements, especially having bowel movements more often. Talk with your health care provider about how to manage this. Follow these instructions at home: Medicines ??? Take jken-dzm-tgnupdf and prescription medicines only as told by your health care provider. ??? If you were prescribed an antibiotic medicine, take it as told by your health care provider. Do not stop using the antibiotic even if you start to feel better. ??? Ask your health care provider if the medicine prescribed to you requires you to avoid driving or using machinery. Eating and drinking ??? Follow instructions from your health care provider about what you can eat after surgery. You may be asked to begin with a diet that is low in fiber. ??? Do not drink alcohol if: ? Your health care provider tells you not to drink. ? You are , may be , or are planning to become . ??? If you drink alcohol: ? Limit how much you use to: [...] oz glass of hard liquor (44 mL). Incision care ??? Follow instructions from your health care provider about how to take care of your incisions. Make sure you: ? Wash your hands with soap and water for at least 20 seconds before and after applying medicine to the area, and before and after changing your bandage (dressing). If soap and water are not available, use hand cane packer. ? Change your dressing as told by your health care provider. ? Leave stitches (sutures) or roney in place. These skin closures may need to stay in place for 2 weeks or longer. If adhesive strip edges start to loosen and curl up, you may trim the loose edges. Do not remove adhesive strips completely unless your health care provider tells you to do that. ??? Keep your incisions clean and dry. ??? Do not wear tight clothing over the incisions. Tight clothing may rub and irritate the incision areas, which may cause the incisions to open. ??? Do not take baths, swim, or use a hot tub until your health care provider approves. Ask your health care provider if you may take showers. You may only be allowed to take sponge baths. ??? Check your incision area every day for signs of infection. Check for: ? More redness, swelling, or pain. ? Fluid or blood. ? Warmth. ? Pus or a bad smell. Activity ??? Rest as told by your health care provider. ??? Avoid sitting for a long time without moving. Get up to take short walks every 1???2 hours. This is important to improve blood flow and breathing. Ask for help if you feel weak or unsteady. ??? Do not lift anything that is heavier than 10 lb (4.5 kg), or the limit that you are told, until your health care provider says that it is safe. ??? Return to your normal activities as told by your health care provider. Ask your health care provider what activities are safe for you. General instructions ??? Keep all follow-up visits as told by your health care provider. This is important. You may need a follow-up visit to remove sutures or roney. Contact a health care provider if: ??? You have more redness, swelling, or pain around your incisions. ??? You have fluid or blood coming from the incisions. ??? Your incisions feel warm to the touch. ??? You have pus or a bad smell coming from your incisions or your dressing. ??? You have a fever. ??? Your incisions break open after sutures or roney have been removed. Get help right away if: ??? You develop a rash. ??? You have chest pain or difficulty breathing. ??? You have pain or swelling in your legs. ??? You feel light-headed or you faint. ??? Your abdomen swells (becomes distended). ??? You have nausea or vomiting. ??? You have blood in your stool. Summary ??? After the procedure, it is common to have pain in the abdomen, tiredness, or changes in bowel movements. ??? Follow instructions from your health care provider about how to care for your incisions. ??? Begin your diet with low-fiber foods. Your health care provider will tell you when to resume your regular diet. ??? Contact a health care provider if you have any signs of infection, such as a fever, more redness, swelling, or pain around your incisions, or a bad smell coming from your incisions. ??? Get help right away if you have a rash, nausea, chest pain, pain or swelling in your legs, or blood in your stool. This information is not intended to replace advice given to you by your health care provider. Make sure you discuss any questions you have with your health care provider. Document Revised: 01/01/2020 Document Reviewed: 01/01/2020 [employer] Patient Education ?? 2020 [employer]. acetaminophen and oxycodone (a SEET a MIN oh fen and OX i KOE done) Endocet 10/325, Endocet 2.5/325, Endocet 5/325, Endocet 7.5/325, Nalocet, Percocet, Primlev What is the most important information I should know about acetaminophen and oxycodone? MISUSE OF OPIOID MEDICINE CAN CAUSE ADDICTION, OVERDOSE, OR . Keep the medication in a place where others cannot get to it. Taking opioid medicine during may cause life-threatening withdrawal symptoms in the . Fatal side effects can occur if you use opioid medicine with alcohol, or with other drugs that cause drowsiness or slow your breathing. Stop taking this medicine and call your doctor right away if you have skin redness or a rash that spreads and causes blistering and peeling. What is acetaminophen and oxycodone? Acetaminophen and oxycodone is a combination medicine used to relieve moderate to severe pain. Acetaminophen and oxycodone contains an opioide medicine and may be habit-forming. Acetaminophen and oxycodone may also be used for purposes not listed in this medication guide. What should I discuss with my healthcare provider before taking acetaminophen and oxycodone? You should not use this medicine if you are allergic to acetaminophen or oxycodone, or if you have: ?? severe asthma or breathing problems; or ?? a blockage in your stomach or intestines. Tell your doctor if you have ever had: ?? breathing problems, sleep apnea; ?? liver disease; ?? a drug or alcohol addiction; ?? kidney disease; ?? a head injury or seizures; ?? urination problems; or ?? problems with your thyroid, pancreas, or gallbladder. If you use opioid medicine while you are , your baby could become dependent on the drug. This can cause life-threatening withdrawal symptoms in the baby after it is born. Babies born dependent on opioids may need medical treatment for several weeks. Ask a doctor before using opioid medicine if you are . Tell your doctor if you notice severe drowsiness or slow breathing in the nursing baby. How should I take acetaminophen and oxycodone? Follow all directions on your prescription label. Never take this medicine in larger amounts, or for longer than prescribed. An overdose can damage your liver or cause . Tell your doctor if you feel an increased urge to use more of this medicine. Never share opioid medicine with another person, especially someone with a history of drug abuse or addiction. MISUSE CAN CAUSE ADDICTION, OVERDOSE, OR . Keep the medicine in a place where others cannot get to it. Selling or giving away opioid medicine is against the law. Measure liquid medicine carefully. Use the dosing syringe provided, or use a medicine dose-measuring device (not a kitchen spoon). If you need surgery or medical tests, tell the doctor ahead of time that you are using this medicine. You should not stop using this medicine suddenly. Follow your doctor's instructions about tapering your dose. Store at room temperature away from moisture and heat. Keep track of your medicine. You should be aware if anyone is using it improperly or without a prescription. Do not keep leftover opioid medication. Just one dose can cause in someone using this medicine accidentally or improperly. Ask your pharmacist where to locate a drug take-back disposal program. If there is no take-back program, flush the unused medicine down the toilet. What happens if I miss a dose? Since this medicine is used for pain, you are not likely to miss a dose. Skip any missed dose if it is almost time for your next dose. Do not use two doses at one time. What happens if I overdose? Seek emergency medical attention or call the Poison Help line at . An overdose of this medicine can be fatal, especially in a child or other person using the medicine without a prescription. Overdose symptoms may include nausea, vomiting, sweating, severe drowsiness, pinpoint pupils, slow breathing, or no breathing. Your doctor may recommend you get naloxone (a medicine to reverse an opioid overdose) and keep it with you at all times. A person caring for you can give the naloxone if you stop breathing or don't wake up. Your caregiver must still get emergency medical help and may need to perform CPR (cardiopulmonary resuscitation) on you while waiting for help to arrive. Anyone can buy naloxone from a pharmacy or local health department. Make sure any person caring for you knows where you keep naloxone and how to use it. What should I avoid while taking acetaminophen and oxycodone? Avoid driving or operating machinery until you know how this medicine will affect you. Dizziness or drowsiness can cause falls, accidents, or severe injuries. Do not drink alcohol. Dangerous side effects or could occur. Ask a doctor or pharmacist before using any other medicine that may contain acetaminophen (sometimes abbreviated as APAP). Taking certain medications together can lead to a fatal overdose. What are the possible side effects of acetaminophen and oxycodone? Get emergency medical help if you have signs of an allergic reaction: hives; difficulty breathing; swelling of your face, lips, tongue, or throat. Opioid medicine can slow or stop your breathing, and may occur. A person caring for you should give naloxone and/or seek emergency medical attention if you have slow breathing with long pauses, blue colored lips, or if you are hard to wake up. In rare cases, acetaminophen may cause a severe skin reaction that can be fatal. This could occur even if you have taken acetaminophen in the past and had no reaction. Stop taking this medicine and call your doctor right away if you have skin redness or a rash that spreads and causes blistering and peeling. Call your doctor at once if you have: ?? noisy breathing, sighing, shallow breathing, breathing that stops; ?? a light-headed feeling, like you might pass out; ?? weakness, tiredness, fever, unusual bruising or bleeding; ?? confusion, unusual thoughts or behavior; ?? problems with urination; ?? liver problems--nausea, upper stomach pain, tiredness, loss of appetite, dark urine, ly-colored stools, jaundice (yellowing of the skin or eyes); ?? low cortisol levels-- nausea, vomiting, loss of appetite, dizziness, worsening tiredness or weakness; or ?? high levels of serotonin in the body--agitation, hallucinations, fever, sweating, shivering, fast heart rate, muscle stiffness, twitching, loss of coordination, nausea, vomiting, diarrhea. Serious breathing problems may be more likely in older adults and in those who are debilitated or have wasting syndrome or chronic breathing disorders. Common side effects include: ?? dizziness, drowsiness, feeling tired; ?? feelings of extreme happiness or sadness; ?? nausea, vomiting, stomach pain; ?? constipation; or ?? headache. This is not a complete list of side effects and others may occur. Call your doctor for medical advice about side effects. You may report side effects to FDA at 2-235-LES-2480. What other drugs will affect acetaminophen and oxycodone? You may have breathing problems or withdrawal symptoms if you start or stop taking certain other medicines. Tell your doctor if you also use an antibiotic, antifungal medication, heart or blood pressure medication, seizure medication, or medicine to treat HIV or hepatitis C. Opioid medication can interact with many other drugs and cause dangerous side effects or . Be sure your doctor knows if you also use: ?? cold or allergy medicines, bronchodilator asthma/COPD medication, or a diuretic ('water pill'); ?? medicines for motion sickness, irritable bowel syndrome, or overactive bladder; ?? other opioids--opioid pain medicine or prescription cough medicine; ?? a sedative like Valium--diazepam, alprazolam, lorazepam, Xanax, Klonopin, Versed, and others; ?? drugs that make you sleepy or slow your breathing--a sleeping pill, muscle relaxer, medicine to treat mood disorders or mental illness; ?? drugs that affect serotonin levels in your body--a stimulant, or medicine for depression, Parkinson's disease, migraine headaches, serious infections, or nausea and vomiting. This list is not complete. Other drugs may affect acetaminophen and oxycodone, including prescription and ploa-hfb-curbbpj medicines, vitamins, and herbal products. Not all possible interactions are listed here. Where can I get more information? Your doctor or pharmacist can provide more information about acetaminophen and oxycodone. Remember, keep this and all other medicines out of the reach of children, never share your medicines with others, and use this medication only for the indication prescribed. Every effort has been made to ensure that the information provided by [employer]') is accurate, up-to-date, and complete, but no guarantee is made to that effect. Drug information contained herein may be time sensitive. [employer] information has been compiled for use by healthcare practitioners and consumers in the [place] and therefore [employer] does not warrant that uses outside of the [place] are appropriate, unless specifically indicated otherwise. [employer] drug information does not endorse drugs, diagnose patients or recommend therapy. [place] [employer] drug information is an informational resource designed to assist licensed healthcare practitioners in caring for their patients and/or to serve consumers viewing this service as a supplement to, and not a substitute for, the expertise, skill, knowledge and judgment of healthcare practitioners. The absence of a warning for a given drug or drug combination in no way should be construed to indicate that the drug or drug combination is safe, effective or appropriate for any given patient. [employer] does not assume any responsibility for any aspect of healthcare administered with the aid of information [employer] provides. The information contained herein is not intended to cover all possible uses, directions, precautions, warnings, drug interactions, allergic reactions, or adverse effects. If you have questions about the drugs you are taking, check with your doctor, nurse or pharmacist. Copyright 7130-8160 [employer]. Version: 20.03. Revision Date: 03/13/2020. Emergency Awareness and Preventative Care [employer]KE is [...] Assistance with quitting is available by contacting 2-331-PKYK-NOW. This is a free resource providing counseling, support, and referral. Or you may contact your personal physician. National Suicide Prevention Lifeline: The National Suicide Prevention [...] This Visit (last charted value for your 08/04/2021 visit) Hematology 08/08/2021 7:10 AM WBC: 7.1 K/uL -- Normal range between ( 4.5 and 10.5 ) RBC: 3.58 Million/uL -- Normal range between ( 3.93 and 5.22 ) Hct: 30.6 % -- Normal range between ( 34.1 and 44.9 ) Hgb: 10.0 g/dL -- Normal range between ( 11.2 and 15.7 ) Platelet Count: 223 K/uL -- Normal range between ( 163 and 369 ) MCH: 27.9 pg -- Normal range between ( 25.6 and 32.2 ) MCHC: 32.7 Gram/dL -- Normal range between ( 31.5 and 35.7 ) MCV: 85.5 fL -- Normal range between ( 79.0 and 94.8 ) RDW: 12.5 % -- Normal range between ( 11.7 and 14.9 ) MPV: 9.6 fL -- Normal range between ( 9.4 and 12.4 ) 08/07/2021 6:48 AM Slide Review: No 08/05/2021 6:12 AM nRBC: 0.020 -- Normal range between ( 0.000 and 0.012 ) 07/28/2021 10:54 AM Eos %: 2.7 % -- Normal range between ( 0.0 and 7.0 ) [place] #: 0.49 K/uL -- Normal range between ( 0.16 and 1.00 ) Eos #: 0.18 x10(3)/uL -- Normal range between ( 0.00 and 0.80 ) [place] %: 7.4 % -- Normal range between ( 3.0 and 9.0 ) Baso %: 0.8 % -- Normal range between ( 0.0 and 1.5 ) Baso #: 0.05 x10(3)/uL -- Normal range between ( 0.00 and 0.20 ) Neut %: 54.1 % -- Normal range between ( 34.0 and 71.0 ) Neut #: 3.56 K/uL -- Normal range between ( 1.56 and 6.13 ) Lymph %: 34.7 % -- Normal range between ( 19.3 and 53.1 ) Lymph #: 2.28 x10(3)/uL -- Normal range between ( 1.00 and 3.90 ) IG#: 0.02 x10(3)/uL -- Normal range between ( 0.00 and 0.05 ) IG%: 0.30 % -- Normal range between ( 0.00 and 0.60 ) Blood Bank 08/04/2021 11:26 AM ABO/Rh (ECHO): O POS Antibody Screen: Negative ABSC 07/28/2021 10:54 AM ABO/Rh Repeat: O POS General Chemistry 08/08/2021 11:04 AM Glucose POC2: 154 mg/dL -- Normal range between ( 70 and 110 ) Device Comment 1: Device Comment 1 08/08/2021 7:10 AM Creatinine Level: 1.00 mg/dL -- Normal range between ( 0.55 and 1.02 ) Sodium Level: 132 mmol/L -- Normal range between ( 136 and 146 ) Potassium Level: 3.9 mmol/L -- Normal range between ( 3.5 and 5.1 ) Chloride Level: 102 mmol/L -- Normal range between ( 102 and 112 ) Carbon Dioxide Level: 21 mmol/L -- Normal range between ( 21 and 32 ) Anion Gap: 13 -- Normal range between ( 9 and 20 ) Bun/Creatinine: 11.0 -- Normal range between ( 8.0 and 20.0 ) Calcium Level: 9.0 mg/dL -- Normal range between ( 8.4 and 10.1 ) eGFR : >60 mL/min/1.73m2 eGFR NonAfrican: >60 mL/min/1.73m2 Glucose Level: 152 mg/dL -- Normal range between ( 74 and 106 ) Blood Urea Nitrogen: 11 mg/dL -- Normal range between ( 7 and 22 ) 08/05/2021 6:12 AM Magnesium Level: 2.7 mg/dL -- Normal range between ( 1.5 and 2.4 ) 08/04/2021 11:45 AM Potassium POC: 3.9 mmol/L -- Normal range between ( 3.5 and 4.9 ) Glucose POC: 112 mg/dL -- Normal range between ( 70 and 105 ) 07/28/2021 10:54 AM Hgb A1C: 6.2 % eAVG Glucose: 131 mg/dL Diagnostic Radiology 07/28/2021 12:04 PM CR Chest 2 Vws: CR Chest 2 Vws Patient Name:DEMETRA MARTINEZ I have received and understand this information and was given the opportunity to ask questions. Patient/Maintenance Supervisor Name: Patient/Maintenance Supervisor Signature: Relationship to Patient: Clinician/Hospital Maintenance Supervisor Signature: Date: documented in this encounter Plan of Treatment Upcoming Encounters Date Type Department Care Team (Late st Contact Info) Description 07/17/2024 11:00 AM EDT Appointment [facility] [address] [place] [address] 08/28/2024 9:15 AM EDT Office Visit [facility] - [address] [place] [address] Chandrika Santana, PARTS SALESPERSON [address] [place] [address] 04/17/2025 8:30 AM EDT Office Visit [facility] - [place] [address] [place] [address] Tamara Sow PA-C [address] [facility] [address] [place] [address] documented as of this encounter Visit Diagnoses Not on filedocumented in this encounter Care Teams Prototype Technician Relationship Specialty Start Date End Date Deandra Schulz APRN PCP - General Nurse Practitioner 04/18/22 06/03/24 Deandra Schulz, [employer]S SALESPERSON [address] [place] [address] PCP - General Nurse Practitioner 06/04/24 documented as of this encounter
--- OUTSIDE RECORDS SUMMARY | 2024-07-16 15:16 | XMS_ITS | Data Portability ---
Author Organization [place] - [facility] ADMIN Address [address] [place] [id number] Care Team Providers Care Account Assistant Name Role Phone DEANDRA LOPEZ Referring Provider MITZI BURDICK Solder Deposit Operator Unavailable DEANDRA LOPEZ Primary Care Provider Assessment No assessment recorded. Plan of Treatment Reminders Order Date Submit Date Provider Last Modified By Organization Details Last Modified Time Details Appointments OV EST 15 2024 10:15A M Mitzi Burdcik NP Not available Not available Not available OV PHY 30 2024 09:30A M Deandra Lopez, KRISHNA, S Not available Not available Not available Lab CMP, serum or plasma [address] [facility] (Lab Registration) , [address] [place] [address] [place], [address], 06/07/2024 07:44:37 iron + total iron-bind ing capacity (TIBC), serum [address] [facility] (Lab Registration) , [address] [place] [address] [place], [address], 06/07/2024 07:44:37 CBC w/ auto diff [address] [facility] (Lab Registration) , [address] [place] [address] [place], [address], 06/07/2024 07:44:38 vitamin D, 25-hydrox y, total, serum 2024 025 [facility] (Lab Registration) , [address] [place] [address] [place], [address], 02/20/2024 20:11:20 HbA1c (hemoglob in A1c), blood 2024 025 96 [facility]- Dept 648, [address] [facility], [place], [address], 02/20/2024 09:19:32 microalbu min/creat inine, mass ratio, urine 2024 025 [email or web address] [facility] Dept 648, [facility], [place], [address], 02/20/2024 09:46:08 CBC w/ auto diff [address] [facility] (Lab Registration) , [address] [place] [address] [place], [address], 02/27/2024 12:39:43 CMP, serum or plasma [address] [facility] (Lab Registration) , [address] [place] [address] [place], [address], 02/27/2024 12:39:44 lipid panel, serum [address] [facility] (Lab Registration) , [address] [place] [address] [place], [address], 02/27/2024 12:39:44 TSH + free T4, serum [address] [facility] (Lab Registration) , [address] [place] [address] [place], [address], 02/27/2024 12:39:44 vitamin B12, serum 2024 025 [facility] (Lab Registration) , [address] [place] [address] [place], [address], 02/20/2024 20:47:16 Referral None recorded. Procedures None recorded. Surgeries None recorded. Imaging [place], modified barium swallow study [address] (Scheduling), [address] [place], [address], 06/26/2024 08:50:08 XR, esophagra m [address] (Scheduling), [address] [place], [address], 06/26/2024 08:50:07 MAMMO, screening , digital, bilateral [address] (Scheduling), [address] [place], [address], 04/10/2024 09:57:46 Medication Orders alprazola m 1 mg tablet 2024 025 [email or web address] 96 [facility], [address] [place] [address], [address], 06/02/2024 11:33:33 esomepraz ole magnesium 40 mg capsule,d elayed release 2024 025 [facility], [address] [place] [address], [address], 04/02/2024 09:50:25 famotidin e 40 mg tablet 2024 025 [facility] [address], [address] [place] [address], [address], 04/02/2024 09:50:27 esomepraz ole magnesium 40 mg capsule,d elayed release 2023 024 [facility], [address] [place] [address], [address], 01/10/2024 09:27:04 famotidin e 40 mg tablet 2023 024 [facility], [address] [facility], [place], [address], 01/11/2024 11:58:04 Patient TargetsNo targets recorded. Patient Instructions Encounter Date Encounter Id Patient Instructions Last Modified By Organization Details Last Modified Time 02/20/2024 [id number] Stay Active Eat a healthy, balanced diet Stay hydrated; aim for 64 oz of water daily Exercise 2-3 days a week for 30-45 minutes Stay up to date on preventative care measures Labs drawn by [facility] skill labor [email or web address] Not available 02/20/2024 09:19:00 Parts of this document were prepared using voice recognition software and may contain unrecognized dictation errors and word substitutions commonly found with electronic respiratory therapy assistant. Attempts have been made to correct errors during dictation, but some errors may remain. It should not be considered a word for word legal document, but is a record created to help myself and others care for the patient. I reserve the right to interpret this document as I believe it was intended and not necessarily the way it was transcribed. [email or web address] Not available 02/20/2024 09:19:03 05/31/2024 [id number] Labs drawn in office by Caesar Johns OUTPATIENT PHLEBOTOMIST x 1 attempt. Pt tolerated well [email or web address] Not available 05/31/2024 16:53:46 Parts of this document were prepared using voice recognition software and may contain unrecognized dictation errors and word substitutions commonly found with electronic respiratory therapy assistant. Attempts have been made to correct errors during dictation, but some errors may remain. It should not be considered a word for word legal document, but is a record created to help myself and others care for the patient. I reserve the right to interpret this document as I believe it was intended and not necessarily the way it was transcribed. [email or web address] Not available 05/31/2024 16:53:27 06/10/2024 [id number] Parts of this document were prepared using voice recognition software and may contain unrecognized dictation errors and word substitutions commonly found with electronic respiratory therapy assistant. Attempts have been made to correct errors during dictation, but some errors may remain. It should not be considered a word for word legal document, but is a record created to help myself and others care for the patient. I reserve the right to interpret this document as I believe it was intended and not necessarily the way it was transcribed. [email or web address] Not available 06/10/2024 14:45:07 Reason for Referral None Reported. Results Created Date Observation Date Name Description Value Unit Range Abnormal Flag Note LastModifiedBy Organization Detail LastModifiedTime 09/15/19 24 09/15/2023 RFS-P ATHOL OGY SPECI MEN REQUE ST pathreq Patho logy [address] [place] [address] Phone or [phone] Fax Santy colón Jr., M.D., Medic al [facility] [address] : [place] [address] Phone Numbe r: [id number] [phone] Vickey gastelum M.D. PATHO LOGY REPOR T Patie nt Name: JUAN Quevedo Date of : 980 Age/S ex: 43/F Accou nt Numbe r: [id number] Medic al Recor d Numbe r: [id number] Order ing MD: SUSAN REYNA Date Colle cted : Date Recei pipo : Date Repor josselyn : Exam: Biops y Acces luis# : [id number] Labor atory #: [id number] Copie s To: SCHULTE ON ASHLE Y Techn ician : Clini inessa Histo ry Epiga stric pain and GERD BodyS ite DUODE NUM, BIOPS Y Gross Descr iptio n Label ed duode num consi sting of 2 piece s of warren soft tissu e measu ring 0.5 x 0.3 x 0.2 cm in aggre gate. Submi tted time in 1 casse tte. BAW Micro scopi c Descr iptio n Tissu e block s are prepa red and slide s are exami annie micro scopi niurka on all speci mens. See diagn osis for detai ls. 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 Submi tted entir jacy in 1 casse tte. Legal ly authe ntica josselyn by VIOLET CHANDRA RD, MD 09-14 11:32 :00 Final Diagn osis GASTR IC ANTRA L TYPE MUCOS A WITH REACT TRACE (CHEM ICAL) GASTR OPATH Y NEGAT TRACE H. PYLOR I, METAP LASIA [place] [address] BodyS ite ESOPH MARIAM, BIOPS Y SubSi te DISTA L Gross Descr iptio n Label ed dista l esoph mariam consi sting of 2 piece s of whitaker- warren soft tissu e measu ring 0.4 x 0.2 x 0.1 cm in aggre gate. Submi tted entir jacy in 1 casse tte. Final Diagn osis REFLU X ESOPH AGITI S (0 EOSIN OPHIL S/HPF ) NEGAT TRACE FOR INTES TINAL METAP LASIA , DYSPL ELKE [place] [address] Legal ly authe ntica josselyn by VIOLET CHANDRA RD, MD 09-14 11:32 :00 Not Available [facility] (Pre-Op Clinic) [address] [place] [address] [place], [address], 09/15/2023 11:55:48 09/05/19 24 09/05/2023 HbA1c (hemo globi n A1c), blood HbA1c 5.8 Not Available [facility]- Dept [address] [place] [address], [place], [address], 09/05/2023 15:17:12 02/19/19 25 02/20/2024 CBC W/ AUTO DIFF WBC 6.05 K/uL 4.5-11 .5 Not Available [facility] (Pre-Op Clinic) [address] [place] [address] [place], [address], 02/20/2024 19:09:22 02/19/1902/20/2024 CBC W/ AUTO DIFF RBC 4.18 M/uL 4.0-5. 4 Not Available [facility] (Pre-Op Clinic) [address] [place] [address] [place], [address], 02/20/2024 19:09:22 02/19/1902/20/2024 CBC W/ AUTO DIFF HGB 11.8 g/dL 12.0-1 5.0 low Not Available [facility] (Pre-Op Clinic) [address] [place] [address] [place], [address], 02/20/2024 19:09:22 02/19/1902/20/2024 CBC W/ AUTO DIFF HCT 36.4 % 35-49 Not Available [facility] (Pre-Op Clinic) [address] [place] [address] [place], [address], 02/20/2024 19:09:22 02/19/1902/20/2024 CBC W/ AUTO DIFF MCV 87.1 fL 80.0-1 00.0 Not Available [facility] (Pre-Op Clinic) [address] [place] [address] [place], [address], 02/20/2024 19:09:22 02/19/1902/20/2024 CBC W/ AUTO DIFF MCH 28.2 pg 26.0-3 2.0 Not Available [facility] (Pre-Op Clinic) [address] [place] [address] [place], [address], 02/20/2024 19:09:22 02/19/1902/20/2024 CBC W/ AUTO DIFF MCHC 32.4 g/dL 32.0-3 6.0 Not Available [facility] (Pre-Op Clinic) [address] [place] [address] [place], [address], 02/20/2024 19:09:22 02/19/19 25 02/20/2024 CBC W/ AUTO DIFF RDW 12.5 % 11.5-1 4.5 Not Available [facility] (Pre[facility]Op [facility]) [address] [place] [address] [place], [address], 02/20/2024 19:09:22 02/19/19 25 02/20/2024 CBC W/ AUTO DIFF platelet count 305 K/uL 142-42 4 Not Available [facility] (Pre[facility]Op [facility]) [address] [place] [address] [place], [address], 02/20/2024 19:09:22 02/19/1902/20/2024 CBC W/ AUTO DIFF MPV 9.1 fL 6.8-10 .2 Not Available [facility] (Pre[facility]Op [facility]) [address] [place] [address] [place], [address], 02/20/2024 19:09:22 02/19/1902/20/2024 CBC W/ AUTO DIFF neutrophil % 64.8 % 50-70 Not Available [facility] (Pre-Op Clinic) [address] [place] [address] [place], [address], 02/20/2024 19:09:22 02/19/19 25 02/20/2024 CBC W/ AUTO DIFF lymphocyte % 26.8 % 18.0-4 2.0 Not Available [facility] (Pre-Op Clinic) [address] [place] [address] [place], [address], 02/20/2024 19:09:22 02/19/1902/20/2024 CBC W/ AUTO DIFF monocyte % 5.3 % 2.0-11 .0 Not Available [facility] (Pre[facility]Op [facility]) [address] [place] [address] [place], [address], 02/20/2024 19:09:22 02/19/19 25 02/20/2024 CBC W/ AUTO DIFF eosinophil % 2.3 % 1.0-3. 0 Not Available [facility] (Pre-Op Clinic) [address] [place] [address] [place], [address], 02/20/2024 19:09:22 02/19/19 25 02/20/2024 CBC W/ AUTO DIFF basophil % 0.5 % 0.0-2. 0 Not Available [facility] (Pre-Op Clinic) [address] [facility] [place], [address], 02/20/2024 19:09:22 02/19/19 25 02/20/2024 CBC W/ AUTO DIFF immature granulocytes % 0.3 % 0.0-0. 8 Not Available [facility] (Pre-Op Clinic) [address] [place] [address] [place], [address], 02/20/2024 19:09:22 02/19/19 25 02/20/2024 CBC W/ AUTO DIFF nucleated red blood cells % 0.0 % Not Available [facility] (Pre-Op Clinic) [address] [place] [address] [place], [address], 02/20/2024 19:09:22 02/19/19 25 02/20/2024 CBC W/ AUTO DIFF neutrophil # 3.92 K/uL Not Available [facility] (Pre-Op Clinic) [address] [place] [address] [place], [address], 02/20/2024 19:09:22 02/19/19 25 02/20/2024 CBC W/ AUTO DIFF lymphocyte # 1.62 K/uL Not Available [facility] (Pre-Op Clinic) [address] [place] [address] [place], [address], 02/20/2024 19:09:22 02/19/19 25 02/20/2024 CBC W/ AUTO DIFF monocyte # 0.32 K/uL Not Available [facility] (Pre-Op Clinic) [address] [place] [address] [place], [address], 02/20/2024 19:09:22 02/19/19 25 02/20/2024 CBC W/ AUTO DIFF eosinophil # 0.14 K/uL Not Available [facility] (Pre-Op Clinic) [address] [facility] [place], [address], 02/20/2024 19:09:22 02/19/19 25 02/20/2024 CBC W/ AUTO DIFF basophil # 0.03 K/uL Not Available [facility] (Pre-Op Clinic) [address] [place] [address] [place], [address], 02/20/2024 19:09:22 02/19/19 25 02/20/2024 CBC W/ AUTO DIFF immature gramulocytes # 0.02 K/uL Not Available [facility] (Pre-Op Clinic) [address] [place] [address] [place], [address], 02/20/2024 19:09:22 02/19/19 25 02/20/2024 CBC W/ AUTO DIFF nucleated red blood cells # 0.00 k/uL Not Available [facility] (Pre-Op Clinic) [address] [place] [address] [place], [address], 02/20/2024 19:09:22 02/19/19 25 02/20/2024 CBC W/ AUTO DIFF manual differential NO Not Available [facility] (Pre-Op Clinic) [address] [place] [address] [place], [address], 02/20/2024 19:09:22 02/19/1902/20/2024 CBC W/ AUTO DIFF note Unles s other castaneda noted testi ng perfo [facility]med at: [facility] [address] [place] [address] Vickey gastelum MD Not Available [facility] (Pre[facility]Op [facility]) [address] [place] [address] [place], [address], 02/20/2024 19:09:22 02/19/19 25 02/20/2024 COMP METAB OLIC PANEL sodium 133 mmol/ L 137-14 7 low Not Available [facility] (Pre-Op Clinic) [address] [place] [address] [place], [address], 02/20/2024 19:56:31 02/19/19 25 02/20/2024 COMP METAB OLIC PANEL potassium 4.4 mmol/ L 3.5-5. 1 Not Available [facility] (Pre[facility]Op Clinic) [address] [facility] [place], [address], 02/20/2024 19:56:31 02/19/19 25 02/20/2024 COMP METAB OLIC PANEL chloride 94 mmol/ L 98-110 low Not Available [facility] (Pre[facility]Op [facility]) [address] [facility] [place], [address], 02/20/2024 19:56:31 02/19/19 25 02/20/2024 COMP METAB OLIC PANEL carbon dioxide 28 mmol/ L 21-30 Not Available [facility] (Pre[facility]Op [facility]) [address] [place] [address] [place], [address], 02/20/2024 19:56:31 02/19/19 25 02/20/2024 COMP METAB OLIC PANEL anion gap 11 mmol/ L 6-14 Not Available [facility] (Pre[facility]Op [facility]) [address] [facility] [place], [address], 02/20/2024 19:56:31 02/19/19 25 02/20/2024 COMP METAB OLIC PANEL glucose 107 mg/dL 70-115 Not Available [facility] (Pre[facility]Op [facility]) [address] [place] [address] [place], [address], 02/20/2024 19:56:31 02/19/19 25 02/20/2024 COMP METAB OLIC PANEL BUN 2 mg/dL 7-17 low Not Available [facility] (Pre-Op Clinic) [address] [place] [address] [place], [address], 02/20/2024 19:56:31 02/19/19 25 02/20/2024 COMP METAB OLIC PANEL creatinine 0.8 mg/dL 0.5-1. 5 Not Available [facility] (Pre-Op Clinic) [address] [place] [address] [place], [address], 02/20/2024 19:56:31 02/19/1902/20/2024 COMP METAB OLIC PANEL BUN/creatini ne ratio 3 10-20 low Not Available [facility] (Pre[facility]Op [facility]) [address] [place] [address] [place], [address], 02/20/2024 19:56:31 02/19/19 25 02/20/2024 COMP METAB OLIC PANEL glom filtration rate 93 mL/mi n >60- GFR LIMIT ATION : The eGFR equat ion CKD-E PI 2020 is not appli cable for pedia tric patie nts or great er than 90 years of age. The follo wing condi tions may alter the GFR resul t: extre mes in body size, malnu triti on or obesi ty, skele mohinder muscl e disea se, parap legia or quadr ipleg ia, veget rasta diet or rapid ly cabral ing kiney funct ion. Not Available [facility] (Pre-Op [facility]) [address] [place] [address] [place], [address], 02/20/2024 19:56:31 02/19/19 25 02/20/2024 COMP METAB OLIC PANEL osmolality (calculated) 274 mosmo l/kg 275-30 1 low OSMOL ALITY IS A CALCU LATIO N UTILI ZING THE SERUM /PLAS MA SODIU M, GLUCO SE AND UREA NITRO GEN (BUN) LEVEL S. FOR THE MOST ACCUR ATE RESUL T A MEASU RED SERUM OSMOL ALITY IS SUGGE STED. Not Available [facility] (Pre[facility]Op [facility]) [address] [place] [address] [place], [address], 02/20/2024 19:56:31 02/19/19 25 02/20/2024 COMP METAB OLIC PANEL total protein 7.2 g/dL 6.2-8. 2 Not Available [facility] (Pre-Op [facility]) [address] [place] [address] [place], [address], 02/20/2024 19:56:31 02/19/19 25 02/20/2024 COMP METAB OLIC PANEL albumin 4.6 g/dL 3.5-5. 0 Not Available [facility] (Pre[facility]Op [facility]) [address] [place] [address] [place], [address], 02/20/2024 19:56:31 02/19/19 25 02/20/2024 COMP METAB OLIC PANEL calcium 9.2 mg/dL 8.5-10 .8 Not Available [facility] ([facility]Op [facility]) [address] [place] [address] [place], [address], 02/20/2024 19:56:31 02/19/19 25 02/20/2024 COMP METAB OLIC PANEL bilirubin total 0.3 mg/dL 0.2-1. 3 Not Available [facility] (Pre-Op Clinic) [address] [place] [address] [place], [address], 02/20/2024 19:56:31 02/19/19 25 02/20/2024 COMP METAB OLIC PANEL AST (SGOT) 26 IU/L 14-36 Not Available [facility] ([facility]Op [facility]) [address] [place] [address] [place], [address], 02/20/2024 19:56:31 02/19/19 25 02/20/2024 COMP METAB OLIC PANEL ALT (SGPT) 18 IU/L 0-35 Pleas e note new refer ence inter viktor for ALT. Due to a recen t manuf actur er metho dolog y cabral e, the refer ence inter viktor for ALT is lower effec tive May 28, 2020. Not Available [facility] (Pre[facility]Op [facility]) [address] [place] [address] [place], [address], 02/20/2024 19:56:31 02/19/19 25 02/20/2024 COMP METAB OLIC PANEL alk phosphatase 92 IU/L 38-126 Not Available [facility] (Pre-Op Clinic) [address] [place] [address] [place], [address], 02/20/2024 19:56:31 02/19/19 25 02/20/2024 COMP METAB OLIC PANEL note Unles s other castaneda noted testi ng perfo rmed at: [facility] [address] [facility] [place] [address] Vickey gastelum MD Not Available [facility] ([facility]Op [facility]) [address] [facility] [place], [address], 02/20/2024 19:56:31 02/19/19 25 02/20/2024 LIPID PANEL cholesterol 162 mg/dL 0-200 Not Available [facility] ([facility]Op [facility]) [address] [facility] [place], [address], 02/20/2024 19:56:32 02/19/19 25 02/20/2024 LIPID PANEL HDL 71 mg/dL 40- Not Available [facility] (Pre-Op [facility]) [address] [facility] [place], [address], 02/20/2024 19:56:32 02/19/19 25 02/20/2024 LIPID PANEL total chol/HDL ratio 2.3 0-4 Not Available [facility] (Pre-Op [facility]) [address] [facility] [place], [address], 02/20/2024 19:56:32 02/19/19 25 02/20/2024 LIPID PANEL triglyceride 116 mg/dL 35-135 Not Available [facility] ([facility]Op [facility]) [address] [facility] [place], [address], 02/20/2024 19:56:32 02/19/19 25 02/20/2024 LIPID PANEL LDL calculated 68 mg/dL 0-130 Not Available [facility] ([facility]Op [facility]) [address] [facility] [place], [address], 02/20/2024 19:56:32 02/19/19 25 02/20/2024 LIPID PANEL VLDL calculated 23 mg/dL 0-40 Not Available [facility] (Pre-Op [facility]) [address] [facility] [place], [address], 02/20/2024 19:56:32 02/19/19 25 02/20/2024 LIPID PANEL note Unles s other castaneda noted testi ng perfo [facility]med at: [facility] [address] [place] [address] Vickey gastelum MD Not Available [facility] ([facility]Op [facility]) [address] [place] [address] [place], [address], 02/20/2024 19:56:32 02/19/19 25 02/20/2024 VITAM IN D, 25-HY DROXY vitamin D, 25-hydroxy 33.5 NG/mL 30-100 Vitam in D defic iency has been defin ed by the [facility]i [facility] Medic [facility]e and Endoc rine Socie ty pract ice guide line as a level of serum 25-OH vitam in D less than 20 ng/mL . The Endoc rine Socie ty went on to [facility] er defin e vitam in D insuf ficie ncy as a level betwe en 20 and 29 ng/mL . Level s of vitam in D betwe en 30 and 100 ng/mL are consi dered suffi ent. Level s above 100 ng/mL are consi dered poten tiall y toxic . Not Available [facility] ([facility]Op [facility]) [address] [place] [address] [place], [address], 02/20/2024 20:11:20 02/19/19 25 02/20/2024 VITAM IN D, 25-HY DROXY note Unles s other castaneda noted testi ng perfo rmed at: [facility] [address] [place] [address] Vickey gastelum MD Not Available [facility] ([facility]Op [facility]) [address] [place] [address] [place], [address], 02/20/2024 20:11:20 02/19/19 25 02/20/2024 T4 FREE T4 free 1.71 NG/dL 0.78-2 .19 Not Available [facility] (Pre[facility]Op [facility]) [address] [facility] [place], [address], 02/20/2024 20:19:46 02/19/19 25 02/20/2024 T4 FREE note Unles s other castaneda noted testi ng perfo rmed at: [facility] [address] [place] [address] Vickey gastelum MD Not Available [facility] ([facility]Op [facility]) [address] [place] [address] [place], [address], 02/20/2024 20:19:46 02/19/19 25 02/20/2024 TSH thyroid stim hormone 0.27 uIU/m L 0.465- 4.68 low Not Available [facility] ([facility]Op [facility]) [address] [place] [address] [place], [address], 02/20/2024 20:20:52 02/19/19 25 02/20/2024 TSH note Unles s other castaneda noted testi ng perfo rmed at: [facility] [address] [place] [address] Vickey gastelum MD Not Available [facility] ([facility]Op [facility]) [address] [place] [address] [place], [address], 02/20/2024 20:20:52 02/19/19 25 02/20/2024 VITAM IN B12 vitamin B12 916 pg/mL 239-93 1 Not Available [facility] ([facility]Op [facility]) [address] [place] [address] [place], [address], 02/20/2024 20:47:16 02/19/19 25 02/20/2024 VITAM IN B12 note Unles s other castaneda noted testi ng perfo rmed at: [facility] [address] [place] [address] Vickey gastelum MD Not Available [facility] ([facility]Op [facility]) [address] [place] [address] [place], [address], 02/20/2024 20:47:16 02/19/1902/20/2024 micro album in/cr eatin ine, mass ratio , urine Microalbumin 10 mg/L Not Available [facility]- Dept [address] [place] [address], [phone], 02/20/2024 09:13:44 02/19/1902/20/2024 micro album in/cr eatin ine, mass ratio , urine Creatinine 10 mg/dL Not Available [facility]- Dept [address] [place] [address], [phone], 02/20/2024 09:13:44 02/19/1902/20/2024 micro album in/cr eatin ine, mass ratio , urine Ratio 30-300 mg/g Not Available [facility]- Dept [address] [place] [address], [phone], 02/20/2024 09:13:44 02/19/1902/20/2024 HbA1c (hemo globi n A1c), blood HbA1c 5.8 Not Available [facility]- Dept [address] [place] [address], [address], 02/20/2024 09:13:42 06/01/1905/31/2024 CBC W/ AUTO DIFF WBC 8.71 K/uL 4.5-11 .5 Not Available [facility] (Pre-Op Clinic) [address] [place] [address] [place], [address], 05/31/2024 19:27:27 06/01/1905/31/2024 CBC W/ AUTO DIFF RBC 3.98 M/uL 4.0-5. 4 low Not Available [facility] (Pre-Op Clinic) [address] [place] [address] [place], [address], 05/31/2024 19:27:27 06/01/1905/31/2024 CBC W/ AUTO DIFF HGB 11.2 g/dL 12.0-1 5.0 low Not Available [facility] (Pre-Op Clinic) [address] [place] [address] [place], [address], 05/31/2024 19:27:27 06/01/1905/31/2024 CBC W/ AUTO DIFF HCT 33.4 % 35-49 low Not Available [facility] (Pre-Op Clinic) [address] [place] [address] [place], [address], 05/31/2024 19:27:27 06/01/1905/31/2024 CBC W/ AUTO DIFF MCV 83.9 fL 80.0-1 00.0 Not Available [facility] (Pre-Op Clinic) [address] [place] [address] [place], [address], 05/31/2024 19:27:27 06/01/1905/31/2024 CBC W/ AUTO DIFF MCH 28.1 pg 26.0-3 2.0 Not Available [facility] (Pre-Op Clinic) [address] [place] [address] [place], [address], 05/31/2024 19:27:27 06/01/1905/31/2024 CBC W/ AUTO DIFF MCHC 33.5 g/dL 32.0-3 6.0 Not Available [facility] (Pre-Op Clinic) [address] [place] [address] [place], [address], 05/31/2024 19:27:27 06/01/1905/31/2024 CBC W/ AUTO DIFF RDW 13.1 % 11.5-1 4.5 Not Available [facility] (Pre-Op Clinic) [address] [place] [address] [place], [address], 05/31/2024 19:27:27 06/01/1905/31/2024 CBC W/ AUTO DIFF platelet count 356 K/uL 142-42 4 Not Available [facility] (Pre-Op Clinic) [address] [place] [address] [place], [address], 05/31/2024 19:27:27 06/01/1905/31/2024 CBC W/ AUTO DIFF MPV 8.7 fL 6.8-10 .2 Not Available [facility] (Pre[facility]Op [facility]) [address] [place] [address] [place], [address], 05/31/2024 19:27:27 06/01/1905/31/2024 CBC W/ AUTO DIFF neutrophil % 64.5 % 50-70 Not Available [facility] (Pre-Op Clinic) [address] [place] [address] [place], [address], 05/31/2024 19:27:27 06/01/1905/31/2024 CBC W/ AUTO DIFF lymphocyte % 19.7 % 18.0-4 2.0 Not Available [facility] (Pre-Op Clinic) [address] [place] [address] [place], [address], 05/31/2024 19:27:27 06/01/1905/31/2024 CBC W/ AUTO DIFF monocyte % 6.9 % 2.0-11 .0 Not Available [facility] (Pre-Op Clinic) [address] [place] [address] [place], [address], 05/31/2024 19:27:27 06/01/1905/31/2024 CBC W/ AUTO DIFF eosinophil % 7.8 % 1.0-3. 0 high Not Available [facility] (Pre-Op Clinic) [address] [place] [address] [place], [address], 05/31/2024 19:27:27 06/01/1905/31/2024 CBC W/ AUTO DIFF basophil % 0.6 % 0.0-2. 0 Not Available [facility] (Pre-Op Clinic) [address] [place] [address] [place], [address], 05/31/2024 19:27:27 06/01/1905/31/2024 CBC W/ AUTO DIFF immature granulocytes % 0.5 % 0.0-0. 8 Not Available [facility] (Pre[facility]Op Clinic) [address] [facility] [place], [address], 05/31/2024 19:27:27 06/01/1905/31/2024 CBC W/ AUTO DIFF nucleated red blood cells % 0.0 % Not Available [facility] (Pre[facility]Op Clinic) [address] [facility] [place], [address], 05/31/2024 19:27:27 06/01/1905/31/2024 CBC W/ AUTO DIFF neutrophil # 5.62 K/uL Not Available [facility] (Pre-Op Clinic) [address] [facility] [place], [address], 05/31/2024 19:27:27 06/01/1905/31/2024 CBC W/ AUTO DIFF lymphocyte # 1.72 K/uL Not Available [facility] (Pre-Op Clinic) [address] [facility] [place], [address], 05/31/2024 19:27:27 06/01/1905/31/2024 CBC W/ AUTO DIFF monocyte # 0.60 K/uL Not Available [facility] (Pre-Op Clinic) [address] [facility] [place], [address], 05/31/2024 19:27:27 06/01/1905/31/2024 CBC W/ AUTO DIFF eosinophil # 0.68 K/uL Not Available [facility] (Pre-Op Clinic) [address] [facility] [place], [address], 05/31/2024 19:27:27 06/01/1905/31/2024 CBC W/ AUTO DIFF basophil # 0.05 K/uL Not Available [facility] (Pre-Op Clinic) [address] [place] [address] [place], [address], 05/31/2024 19:27:27 06/01/1905/31/2024 CBC W/ AUTO DIFF immature gramulocytes # 0.04 K/uL Not Available [facility] (Pre[facility]Op [facility]) [address] [place] [address] [place], [address], 05/31/2024 19:27:27 06/01/1905/31/2024 CBC W/ AUTO DIFF nucleated red blood cells # 0.00 k/uL Not Available [facility] (Pre[facility]Op [facility]) [address] [place] [address] [place], [address], 05/31/2024 19:27:27 06/01/1905/31/2024 CBC W/ AUTO DIFF manual differential NO Not Available [facility] (Pre-Op Clinic) [address] [place] [address] [place], [address], 05/31/2024 19:27:27 06/01/1905/31/2024 CBC W/ AUTO DIFF note Unles s other castaneda noted testi ng perfo [facility]med at: [facility] [address] [place] [address] Vickey gastelum MD Not Available [facility] (Pre-Op [facility]) [address] [place] [address] [place], [address], 05/31/2024 19:27:27 06/01/1905/31/2024 COMP METAB OLIC PANEL sodium 130 mmol/ L 137-14 7 low Not Available [facility] (Pre[facility]Op [facility]) [address] [place] [address] [place], [address], 05/31/2024 20:30:13 06/01/1905/31/2024 COMP METAB OLIC PANEL potassium 4.3 mmol/ L 3.5-5. 1 Not Available [facility] (Pre-Op Clinic) [address] [place] [address] [place], [address], 05/31/2024 20:30:13 06/01/1905/31/2024 COMP METAB OLIC PANEL chloride 92 mmol/ L 98-110 low Not Available [facility] (Pre[facility]Op [facility]) [address] [facility] [place], [address], 05/31/2024 20:30:13 06/01/1905/31/2024 COMP METAB OLIC PANEL carbon dioxide 30 mmol/ L 21-30 Not Available [facility] ([facility]Op [facility]) [address] [place] [address] [place], [address], 05/31/2024 20:30:13 06/01/1905/31/2024 COMP METAB OLIC PANEL anion gap 8 mmol/ L 6-14 Not Available [facility] (Pre[facility]Op [facility]) [address] [place] [address] [place], [address], 05/31/2024 20:30:13 06/01/1905/31/2024 COMP METAB OLIC PANEL glucose 73 mg/dL 70-115 Not Available [facility] ([facility]Op [facility]) [address] [place] [address] [place], [address], 05/31/2024 20:30:13 06/01/1905/31/2024 COMP METAB OLIC PANEL BUN 2 mg/dL 7-17 low Not Available [facility] (Pre-Op Clinic) [address] [place] [address] [place], [address], 05/31/2024 20:30:13 06/01/1905/31/2024 COMP METAB OLIC PANEL creatinine 0.7 mg/dL 0.5-1. 5 Not Available [facility] (Pre-Op Clinic) [address] [place] [address] [place], [address], 05/31/2024 20:30:13 06/01/1905/31/2024 COMP METAB OLIC PANEL BUN/creatini ne ratio 3 10-20 low Not Available [facility] (Pre-Op Clinic) [address] [place] [address] [place], [address], 05/31/2024 20:30:13 06/01/19 25 05/31/2024 COMP METAB OLIC PANEL glom filtration rate 109 mL/mi n >60- GFR LIMIT ATION : The eGFR equat ion CKD-E PI 2020 is not appli cable for pedia tric patie nts or great er than 90 years of age. The follo wing condi tions may alter the GFR resul t: extre mes in body size, malnu triti on or obesi ty, skele mohinder muscl e disea se, parap legia or quadr ipleg ia, veget rasta diet or rapid ly cabral ing kiney funct ion. Not Available [facility] (Pre[facility]Op [facility]) [address] [place] [address] [place], [address], 05/31/2024 20:30:13 06/01/19 25 05/31/2024 COMP METAB OLIC PANEL osmolality (calculated) 266 mosmo l/kg 275-30 1 low OSMOL ALITY IS A CALCU LATIO N UTILI ZING THE SERUM /PLAS MA SODIU M, GLUCO SE AND UREA NITRO GEN (BUN) LEVEL S. FOR THE MOST ACCUR ATE RESUL T A MEASU RED SERUM OSMOL ALITY IS SUGGE STED. Not Available [facility] (Pre[facility]Op [facility]) [address] [place] [address] [place], [address], 05/31/2024 20:30:13 06/01/1905/31/2024 COMP METAB OLIC PANEL total protein 6.6 g/dL 6.2-8. 2 Not Available [facility] (Pre[facility]Op [facility]) [address] [place] [address] [place], [address], 05/31/2024 20:30:13 06/01/19 25 05/31/2024 COMP METAB OLIC PANEL albumin 4.2 g/dL 3.5-5. 0 Not Available [facility] ([facility]Op [facility]) [address] [place] [address] [place], [address], 05/31/2024 20:30:13 06/01/1905/31/2024 COMP METAB OLIC PANEL calcium 9.4 mg/dL 8.5-10 .8 Not Available [facility] ([facility]Op [facility]) [address] [place] [address] [place], [address], 05/31/2024 20:30:13 06/01/1905/31/2024 COMP METAB OLIC PANEL bilirubin total 0.3 mg/dL 0.2-1. 3 Not Available [facility] ([facility]Op [facility]) [address] [place] [address] [place], [address], 05/31/2024 20:30:13 06/01/1905/31/2024 COMP METAB OLIC PANEL AST (SGOT) 27 IU/L 14-36 Not Available [facility] ([facility]Op [facility]) [address] [place] [address] [place], [address], 05/31/2024 20:30:13 06/01/1905/31/2024 COMP METAB OLIC PANEL ALT (SGPT) 37 IU/L 0-35 high Pleas e note new refer ence inter viktor for ALT. Due to a recen t manuf actur er metho dolog y cabral e, the refer ence inter viktor for ALT is lower effec tive May 28, 2020. Not Available [facility] (Pre[facility]Op [facility]) [address] [place] [address] [place], [address], 05/31/2024 20:30:13 06/01/1905/31/2024 COMP METAB OLIC PANEL alk phosphatase 219 IU/L 38-126 high Not Available [facility] (Pre-Op Clinic) [address] [place] [address] [place], [address], 05/31/2024 20:30:13 06/01/1905/31/2024 COMP METAB OLIC PANEL note Unles s other castaneda noted testi ng [facility]fo [facility] [address] [place] [address] Vickey gastelum MD Not Available [facility] (Pre[facility]Op [facility]) [address] [place] [address] [place], [address], 05/31/2024 20:30:13 06/01/1905/31/2024 IRON STUDY W FE/TI BC/UI BC/%S AT iron 45 ug/dL 37-170 Not Available [facility] (Pre[facility]Op [facility]) [address] [place] [address] [place], [address], 05/31/2024 21:22:29 06/01/1905/31/2024 IRON STUDY W FE/TI BC/UI BC/%S AT total iron bind cap. 346 ug/dL 265-49 7 Not Available [facility] ([facility]Op [facility]) [address] [place] [address] [place], [address], 05/31/2024 21:22:29 06/01/19 25 05/31/2024 IRON STUDY W FE/TI BC/UI BC/%S AT unsaturated iron binding cap 301 ug/dL 150-37 5 Not Available [facility] (Pre[facility]Op [facility]) [address] [place] [address] [place], [address], 05/31/2024 21:22:29 06/01/1905/31/2024 IRON STUDY W FE/TI BC/UI BC/%S AT % saturation 13 % 15-55 low Not Available [facility] (Pre[facility]Op [facility]) [address] [place] [address] [place], [address], 05/31/2024 21:22:29 06/01/1905/31/2024 IRON STUDY W FE/TI BC/UI BC/%S AT note Unles s other castaneda noted testi ng [facility] [address] [place] [address] Vickey gastelum MD Not Available [facility] ([facility]Op [facility]) [address] [place] [address] [place], [address], 05/31/2024 21:22:29 05/29/19 25 02/18/2021 MAMMO , scree les, digit al, bilat eral No observ ation record ed. [email or web address] Not Available 05/08 10:55:49 07/11/19 25 07/10/2024 [place], modif ied master gomes ow study No observ ation record ed. [facility] (Radiology) [address] [place], [address], 07/10/2024 15:11:23 07/11/19 25 07/10/2024 modif ied master m eliseo ow [facility] [address] [facility] [address] Phone: Fax: Name: DEMETRA DIAZ Exam Date: 07/11/19 25 : [birth year] Age 44 years Gender : F Access ion: [id number] Physic chago: SARAH BURDICK Facili ty: [facility] Facili ty HSV: Outpat ient Exam: MODIFI ED BARIUM SWALLO W EXAM: MODIFI ED BARIUM SWALLO W Perfor med by: Branden douglas, CAD TECHNICIAN-C. INDICA TION: dyspha latoya FINDIN GS/CHUCKY HNIQUE : Under fluoro scopic evalua tion cinera diogra phy/vi deorad iograp hy record ings were perfor med in conjun ction with the speech [facility] age pathol ogist (TOW MOTOR OPERATOR). Variou s liquid , solid and/or semi-s olid barium prepar ations were used to assess swallo wing functi on. Aspira tion visual ized with thin liquid s. Record ed fluoro scopy was used for this study. FLUORO TIME: 2.5 minute s. Refere nce air kerma: 25.088 mGy. IMPRES LUIS: Modifi ed barium swallo w. Aspira tion of thin liquid s. Please see formal report by speech [facility] age pathol ogy for findin gs and recomm endati ons. Electr onical ly signed by: Rj poon MD 2024 03:06 PM EDT RP Workst ation: [id number] Dictat ed By: Rj Rodriguez Transc ribed By: Transc ribed On: 07/11/19 12:19 PM Electr onical ly signed by: Rj Rodriguez 07/11/19 Thank you for referr ing DEMETRA DIAZ to [facility]. Legall y authen ticate d by MARY FITZGERALD MD 07-10 12:19: 53 CC'ed Logic: Orderi ng Provid er: SHAGGY Ledesma CC Provid er: DEEPAK RICKETTS Attend ing Provid er: SHAGGY Ledesma Referr ing Provid er: SHAGGY Ledesma Admitt ing Provid er: SHAGGY Ledesma INTERFACE [facility] (Radiology) [address] [place], [address], 07/10/2024 15:11:11 07/11/19 25 07/10/2024 XR, esoph agram [facility] [address] [place] [address] Phone: Fax: Name: DEMETRA DIAZ Exam Date: 07/11/19 : [birth year] Age 44 years Gender : F Access ion: [id number] Physic chago: SARAH BURDICK Facili ty: [facility] Facili ty HSV: Outpat ient Exam: ESOPHA GRAM EXAM: ESOPHA GRAM Perfor med by: Branden douglas STENOTYPE MACHINE OPERATOR, CAD TECHNICIAN-C INDICA TION: dyspha latoya, GERD, neck surger [...] hu and into the stomac h. IMPRES LUIS: 1. Small hiatal hernia . Electr onical ly signed by: Rj poon MD 2024 04:23 PM EDT RP Workst ation: [id number] Dictat ed By: Rj Rodriguez Transc ribed By: Transc ribed On: 07/11/19 12:19 PM Electr onical ly signed by: Rj Rodriguez 07/11/19 Thank you for referr ing [facility]. Legall y authen ticate d by MARY FITZGERALD MD 07-10 12:19: 44 CC'ed Logic: Orderi ng Provid er: SHAGGY Ledesma CC Provid er: DEEPAK RICKETTS Attend ing Provid er: SHAGGY Ledesma Referr ing Provid er: SHAGGY Ledesma Admitt ing Provid er: SHAGGY Ledesma [facility] (Radiology) [address], [place], [address], 07/10/2024 16:27:30 07/11/19 25 07/10/2024 FL, modif iestella acuña study No observ ation record ed. [facility] (Radiology) [address] [place], [address], 07/10/2024 17:49:40 07/13/19 25 07/10/2024 FL, modif iestella acuña study No observ ation record ed. [facility] [address] [place], [address], 07/12/2024 12:51:54 Result Notes None recorded. Problems Name Problem SNOMED Code Status Onset Date Resolution Date Notes Provider Name and Address Organization Details Recorded Time Generalize d anxiety disorder 52259637 Active 2023 Deandra Lopez NP [address], [address], [place], [address] , [place] [facility] - [place] & [place] 4 08:03:57 Acute conjunctiv itis of right eye 2934325373036 02 Active 2024 Deandra Lopez NP [address], [address], [place], [address] , [place] [facility] [place] & [place] 5 11:44:09 Dysphagia 57432881 Active 2024 Mitzi Burdick NP [address], [address], [place], [address] , [place] [facility] [place] & [place] 5 09:49:25 Hyponatrem ia 94551262 Active 2024 Deandra Lopez NP [address], [address], [place], [address] , [place] [facility] [place] & [place] 5 16:36:25 Iron deficiency anemia due to blood loss 920084965 Active 2024 Deandra Lopez NP [address], [address], [place], [address] , [place] [facility] [place] & [place] 5 16:37:21 Candidiasi s of mouth 77945188 Active 2024 Deandra Lopez NP [address], [address], [address] , [place] [facility] [place] & [place] 5 09:08:22 Postoperat trace seroma 864647940 Active 2024 Deandra Lopez NP [address], [address], [address] , [place] [facility] [place] 5 14:39:33 Decrease in appetite 93989540 Active 2024 Deandra Lopez NP [address], [address], [place], [address] , [place] [facility] [place] & [place] 5 12:59:09 Acute upper respirator y infection 67600221 Active 2024 Deandra Lopez NP [address], [address], [place], [address] , [place] [facility] [place] & [place] 5 13:19:16 History of blood transfusio n 412555185 Active 2021 Not Available [facility] 3 07:11:23 Gastroesop hageal reflux disease 083812120 Active 2021 Not Available [facility] 3 07:11:23 Hyperchole sterolemia 79062280 Active 2021 Not Available [facility] 3 07:11:23 Thyroiditi s 73911778 Active 2021 Not Available [facility] 3 07:11:23 Arthritis 1403850 Active 2021 Not Available [facility] 3 07:11:23 Sleep apnea 43199161 Active 2021 Not Available [facility] 3 07:11:23 Constipati on 01600053 Active 2021 Not Available [facility] 3 07:11:23 Irregular heart beat 557591474 Active 2021 Not Available [facility] 3 07:11:23 Diabetes mellitus 30054394 Active 2021 Not Available [facility] 3 07:11:23 Anxiety 03888675 Active 2021 Not Available [facility] 3 07:11:23 Depressive disorder 59007013 Active 2021 Not Available [facility] 3 07:11:23 Chest pain 86616055 Active 2021 Not Available [facility] 3 07:11:23 Posttrauma tic stress disorder 80644467 Active 2021 Not Available [facility] 3 07:11:23 Loose stool 157806535 Active 2021 Not Available [facility] 3 07:11:23 Paresthesi a 64863698 Active 2021 Not Available [facility] 3 07:11:23 Vitamin D deficiency 71213480 Active 2021 Not Available [facility] 3 07:11:23 Memory impairment 951225797 Active 2021 Not Available [facility] 3 07:11:23 Neck pain 64931670 Active 2021 Not Available [facility] 3 07:11:23 Pain in left arm 050883375 Active 2021 Not Available [facility] 3 07:11:23 Vitamin B12 deficiency (non anemic) 44251091 Active 2021 Not Available [facility] 3 07:11:23 Essential hypertensi on 84166209 Active 2021 Not Available [facility] 3 07:11:23 Electrolyt es outside reference range 546657305 Active 2021 Not Available [facility] 3 07:11:23 Migraine 18318036 Active 2022 Not Available [facility] 3 07:11:23 Degenerati on of cervical interverte bral disc 54740798 Active 2022 Not Available [facility] 3 07:11:23 Diarrhea 62045863 Active 2022 Not Available [facility] 3 07:11:23 Diarrhea of presumed infectious origin 87882725 Active 2022 Not Available [facility] 3 07:11:23 Hematochez ia 562663649 Active 2022 Not Available [facility] 3 07:11:23 Generalize d abdominal pain 837326059 Active 2022 Not Available [facility] 3 07:11:23 Nausea 154434767 Active 2022 Not Available [facility] 3 07:11:23 Anemia 893370077 Active 2022 Not Available [facility] 3 07:11:23 Chronic diarrhea 564581400 Active 2022 Not Available [facility] 3 07:11:23 Type 2 diabetes mellitus without complicati on 864842689 Active 2022 Not Available [facility] 3 07:11:23 Gastro-eso phageal reflux disease with esophagiti s 882248640 Active 2022 Mitzi Burdick NP [address], [address], [place], [address] , [place] [facility] [place] & [place] 3 10:37:44 Gastritis 7899833 Active 2022 Mitzi Burdick NP [address], [address], [place], [address] , [place] [facility] [place] 3 10:37:47 Lower abdominal pain 55938785 Active 2022 Mitzi Burdick NP [address], [address], [place], [address] , [place] [facility] & [place] 3 14:24:28 Difficulty in ability to defecate 014498154 Active 2022 Mitzi Burdick NP [address], [address], [place], [address] , [place] [facility] & [place] 3 14:26:01 Acquired hypothyroi dism 810175777 Active 2022 Deandra Lopez NP [address], [address], [place], [address] , [place] [facility] & [place] 3 11:23:17 Mixed hyperlipid emia 289794570 Active 2022 Deandra Lopez NP [address], [address], [place], [address] , [place] [facility] 3 11:24:14 Furuncle of right axilla 3910280078166 9105 Active 2023 Deandra Lopez NP [address], [address], [place], [address] , [place] [facility] 4 14:06:55 Nodule of lung 757928602 Active 2023 Deandra Lopez NP [address], [address], [place], [address] , [place] [facility] 4 15:55:22 Epigastric pain 88919680 Active 2023 Mitzi Burdick NP [address], [address], [place], [address] , [place] 4 13:28:19 Internal hemorrhoid s 32882637 Active 2023 Mitzi Burdick NP [address], [address], [place], [address] , [place] [facility] 4 13:30:11 Digital mucous cyst 936951342 Active 2023 Deandra Lopez NP [address], [address], [place], [address] , [place] 4 16:23:23 Vesicular eczema of hand 316744596 Active 2023 Deandra Lopez NP [address], [address], [place], [address] , [place] 4 16:23:49 Carpal tunnel syndrome of right wrist 3117939915355 08 Active 2023 Deandra Lopez NP [address], [address], [place], [address] , [place] 4 16:25:32 Chronic migraine without aura 5789497614765 05 Active 2023 Deandra Lopez NP [address], [address], [place], [address] , [place] 4 07:54:45 Nonulcer dyspepsia 9751678 Active 2023 Mitzi Burdick NP [address], [address], [place], [address] , [place] [facility] [place] & [place] 4 09:56:50 Problem Notes None recorded. Procedures Surgical History Date Name Laterality Status Provider Name and Address Organization Details Recorded Time 09/13 esophagogastroduodenoscopy [place] Demetra [place] & [place] 4 09:21:09 03/23 Date of Last Colonoscopy completed [place]esest e [place] [facility] [place] 4 10:35:24 03/23 Flexible Sigmoidoscopy completed Cheleste [place] 4 10:35:11 02/06 Other completed Cheleste [place] 4 16:59:01 02/06 Head or Neck Surgery completed Cheleste [place] 4 16:59:01 02/06 Other completed Julia Hill [place] 5 10:30:24 02/06 Back Surgery completed [place] 5 10:30:24 09/08 Neurosurgery completed Cheleste [place] 4 09:45:16 09/06 Back Surgery completed Cheleste [place] 4 09:50:15 08/04 Gastrointestinal Surgery completed Chelest e [place] 4 09:45:16 05/25 Head or Neck Surgery completed Cheleste [place] 4 09:48:21 05/25 Back Surgery completed Cheleste [place] 4 09:54:40 05/12 Neurosurgery completed [place]eseste [place] 4 09:45:16 05/11 Head or Neck Surgery completed Cheleste [place] 4 09:49:12 04/11 esophagogastroduodenoscopy completed Kwaku anais [place] & [place] 4 10:05:29 04/11 sigmoidoscopy [place]eseste [place] 4 10:05:44 02/21 completed [place]esreemae [place] - [facility] - [place] & [place] 4 10:31:19 12/23 EMG/ Nerve Conduction Study completed Ben Moore M.D [address] [place] [address], [address], [place], [address] , [place] [facility] [place] & [place] 2 14:58:46 08/04 subtotal colectomy with ileorectal anastomosis completed Mitzi Burdick NP [address] [place] [address], [address], [place], [address] , [place] [facility] & [place] 2 10:00:54 08/04 Abdominal Surgery completed Jamie MARIE - [facility] [place] 2 14:04:01 02/06 Abdominal Surgery completed mariana johns [place] - [facility] - [place] & [place] 3 15:53:32 02/06 Gastrointestinal Surgery completed Wilson Ryan [place] [facility] [place] & [place] 4 09:43:52 02/06 Administrative Services Coordinator Surgery completed mariana johns [place] [facility] [place] & [place] 3 15:53:32 10/13 Date of Last Pap Smear completed Jamie Dubon [place] - [facility] [place] 2 14:03:44 07/19 Neurosurgery completed Codi Parishimaldi [place] - [facility] - [place] & [place] 3 15:00:27 03/16 Colonoscopy completed Justin Ryan [place] [facility] [place] 4 09:41:09 07/07 Back Surgery completed Favianamilcar Dubon [place] - [facility] - [place] & [place] 2 14:04:01 02/06 Back Surgery completed Justin Sarmientoz [place] [facility] [place] 4 09:54:40 02/06 Administrative Services Coordinator Surgery completed mariana johns [place] [facility] 3 15:53:32 01/30 Abdominal Surgery completed Justin Sarmientoz [place] [facility] [place] 4 09:46:50 01/30 Administrative Services Coordinator Surgery completed Tianpeggy Dubon [place] - [facility] [place] & [place] 2 14:04:01 02/06 Administrative Services Coordinator Surgery completed Justin Ryan [place] [facility] [place] 4 10:32:14 01/24 Abdominal Surgery completed Justin Ryan [place] [facility] 4 09:46:50 01/24 Administrative Services Coordinator Surgery completed Tianpeggy Jagdish [place] - [facility] - [place] & [place] 2 14:04:01 02/06 Administrative Services Coordinator Surgery completed mariana kassandra [place] [facility] [place] 3 15:53:32 esophagogastroduodenoscopy completed Jamie Dubon [place] [facility] [place] 2 07:54:35 section completed Jamie Dubon [place] [facility] 2 07:54:46 section completed Jamie Dubon [place] [facility] [place] 2 07:54:47 ovarian ablation completed Jamie MARIE - [facility] - [place] & [place] 2 07:55:32 salpingo-oophorectomy completed Pedro Pablo MARIE - [facility] - [place] & [place] 2 07:56:25 insertion of single incision mid-urethral mini-sling completed Jamie MARIE - [facility] - [place] & [place] 2 07:56:43 Cholecystectomy completed Justin MARIE - [facility] - [place] & [place] 4 09:48:21 Head or Neck Surgery completed Ines MARIE - [facility] - [place] & [place] 4 09:51:55 cardiac catheterization completed Ulises MARIE - [facility] - [place] & [place] 4 10:00:20 stimulation completed Justin MARIE - [facility] - [place] & [place] 4 10:01:28 procedure on mouth completed Milka Feng - [facility] - [place] & [place] 4 10:01:37 Total Hysterectomy completed Milka Feng - [facility] - [place] & [place] 4 10:01:53 extraction of wisdom tooth completed Justin MARIE - [facility] - [place] & [place] 4 10:02:14 transurethral cystoscopy completed Justin MARIE - [facility] - [place] & [place] 4 10:02:28 Colonoscopy completed Jamie MARIE - [facility] - [place] & [place] 2 14:04:01 Gastrointestinal Surgery completed Mary Carmen MARIE - [facility] - [place] & [place] 2 12:45:19 Administrative Services Coordinator Surgery completed Mary Carmen Velardeedson [place] - [facility] - [place] & [place] 2 12:45:19 Abdominal Surgery completed Mary Carmen MARIE - [facility] - [place] & [place] 2 12:45:19 Back Surgery completed Mary Carmen MARIE - [facility] - [place] & [place] 2 12:45:19 Imaging Results None recorded. Procedure Notes None recorded. Medical Equipment Implant [employer] Issuing Agency Serial Number Lot Number Status Provider Name and Address Organization Details Recorded Time Spinal cord stimulator FDA Y [place] Delong [facility] & [place] 02/28/2023 10:03:17 Allergies Allergen ID Allergen Name Allergen Category Reaction Reaction Severity Criticality Documentation Date Start Date Code Code System Note Provider Name and Address Organization Details Recorded Time [id number] Paxil medicatio n Not available Not available Not available 02/28/2023 75626 8 RxNorm Other react ions and sever ities : 'Tach ycard ia - Moder ate', 'Decr eased blood press ure - Moder ate', 'Ches t pain - Moder ate', and 'Dizz iness - Moder ate'. CYN[place]IA Delong [facility] & [place] 4 09:54:52 044528 sumatript an medicatio n Not available Not available Not available 02/28/2023 40563 RxNorm Other react ions and sever ities : 'Adve rse react ion to subst ance' . CYN[place]IA Delong [facility] & [place] 4 09:56:40 623929 bupropion Not available Not available Not available Not available 02/28/2023 96031 RxNorm Other react ions and sever ities : 'Adve rse react ion to subst ance' . CYNTHIA Delong [facility] & [place] 4 09:56:40 017173 adhesive tape environme nt,medica tion other severe Not available 05/28/2024 16779 UNK Julia Horowitzdavid santana [facility] & [place] 5 10:30:31 52134 Imitrex medicatio n tachycard ia severe Not available 10/29/2021 09171 3 [facility] [place] 2 07:43:48 33990 pseudoeph edrine Not available Not available Not available Not available 10/29/2021 8896 RxNorm Other react ions and sever ities : 'Adve rse react ion to subst ance' . CYNTHIA Delong [facility] & [place] 4 16:58:00 07521 Vistaril medicatio n Not available Not available Not available 10/29/2021 00595 9 RxNorm CYNTHIA Galindo [facility] & [place] 2 07:44:07 34047 prednison e medicatio n rash Not available Not available 10/29/2021 8640 RxNorm [place] Galindo [facility] & [place] 2 07:44:17 78949 diclofena c Not available Not available Not available Not available 10/29/2021 3355 RxNorm Other react ions and sever ities : 'Adve rse react ion to subst ance' . CYNTHIA Delong [facility] & [place] 4 16:58:00 89656 Wellbutri n medicatio n decreased blood pressure severe Not available 10/29/2021 93058 RxNorm [place]IA Galindo [facility] & [place] 2 07:44:31 Medications Name Sig Start Date [...] DAILY FOR 1 WEEK THEN ONCE DAILY THERELONI Pereyra 12/14 completed Not Available Not Available Not [...] completed Not Available Not Available Not Available [facility] 10 billion cell-200 mg sprinkle [...] and Address Organization Details Last Updated DateTime 5 165.1 cm 32.3 kg/m2 38969.3 6 g 96.6 [degF] 96 % 96 % 80 /min 110 mm[Hg] 64 mm[Hg] Estefanía Ramu [facility] 5 08:47:04 Date Recorded Body height Body mass index (BMI) Body weight Body temperature Oxygen saturation Oxygen saturation in Arterial blood by Pulse oximetry Heart rate Provider Name and Address Organization Details Last Updated DateTime 5 165.1 cm 30.8 kg/m2 23206.3 1 g 97.9 [degF] 99 % 99 % 80 /min Anita [place] [facility] & [place] 5 09:14:36 Date Recorded Body height Body mass index (BMI) Body weight Body temperature Oxygen saturation Oxygen saturation in Arterial blood by Pulse oximetry Heart rate Systolic blood pressure Diastolic blood pressure Provider Name and Address Organization Details Last Updated DateTime 5 165.1 cm 30.8 kg/m2 15624.5 9 g 97 [degF] 97 % 97 % 94 /min 140 mm[Hg] 80 mm[Hg] mariana johns [facility] & [place] 5 16:01:45 Date Recorded Body height Body mass index (BMI) Body weight Body temperature Oxygen saturation Oxygen saturation in Arterial blood by Pulse oximetry Heart rate Systolic blood pressure Diastolic blood pressure Provider Name and Address Organization Details Last Updated DateTime 5 165.1 cm 30.1 kg/m2 93549.2 2 g 96.4 [degF] 99 % 99 % 92 /min 120 mm[Hg] 70 mm[Hg] mariana johns [facility] & [place] 5 14:06:26 Date Recorded Body height Body mass index (BMI) Body weight Body temperature Oxygen saturation Oxygen saturation in Arterial blood by Pulse oximetry Heart rate Provider Name and Address Organization Details Last Updated DateTime 4 165.1 cm 35.3 kg/m2 06229.5 8 g 97.2 [degF] 95 % 95 % 88 /min Martita Knox [facility] & [place] 4 09:36:35 Social History Question Answer Notes LastModified by Organizat ion Details LastModified Time Tobacco Smoking Status Former Smoker Justin Ryan [facility], [facility] & [place] 02/28/2023 09:40:09 Do You Have An Advance Directive? Yes Information not available 02/28/2023 Are You Blind Or Do You Have Difficulty Seeing? No Information not available 02/28/2023 What Was The Date Of Your Most Recent Tobacco Screening? 07/15/2023 [email or web address] Information not available 01/12/2024 Are You Passively Exposed To Smoke? No Information not available 02/28/2023 How Much Tobacco Do You Smoke? 0.5 PPD Information not available 02/28/2023 How Many Years Have You Smoked Tobacco? 20 [email or web address] Information not available 01/12/2024 Sex: Female Functional Status Question Answer Note LastModified by Organizat ion Details LastModified Time Do you use any [...] anxious, or unable to sleep at night)? [id number] Information not available 01/12/2024 Family History Relationship Description Onset Age of this Age Resolved Age Notes LastModified by Organization Details LastModified Time Sister Family history unknown [email or web address] Not available 2024 13:54:43 Sister Disorder of thyroid gland [email or web address] Not available 2023 15:36:42 Father Disorder of thyroid gland [email or web address] Not available 2021 14:03:29 Father Hypercholest erolemia [email or web address] Not available 2021 14:03:29 Father Gastroesopha geal reflux disease [email or web address] Not available 2021 14:03:29 Father Hearing loss [email or web address] Not avai lable 11/19/2021 14:03:29 Father Disorder of endocrine system [email or web address] Not available 2021 14:03:29 Father Sleep disorder [email or web address] Not available 04/25 14:59:46 Father Hypertensive disorder [email or web address] Not available 2023 15:36:42 Mother Disorder of thyroid gland [email or web address] Not available 2021 14:03:29 Mother Mental health problem [email or web address] Not available 2021 14:03:29 Mother Osteoporosis Not avai lable 11/19/2021 14:03:29 Mother Heart disease Not available 2021 14:03:29 Mother Chronic obstructive pulmonary disease [email or web address] Not available 2021 14:03:29 Mother Hypercholest erolemia [email or web address] Not available 2021 14:03:29 Mother Myocardial infarction [email or web address] Not available 11/19 14:03:29 Mother Hypertensive disorder [email or web address] Not available 2021 12:44:00 Maternal Grandmother Mental health problem [email or web address] Not available 2023 15:36:42 Maternal Grandmother Osteoporosis [email or web address] Not available 0 03/07/2023 15:36:42 Maternal Grandfather Cerebrovascu lar accident [email or web address] Not available 15:36:42 Medical History Condition Response Other Y Depression Y Spine Problems Y Obstructive Sleep Apnea Y Anxiety Disorder Y Obesity Y Vision or Eye Problems Y Arthritis Y High Cholesterol Y Psychiatric/Mental Health Condition Y Headaches Y Thyroid Problems Y Kidney or Bladder Problems Y GI Problems Y Osteoporosis/Osteopenia Y Anemia Y Neurological Problems Y Diabetes Y Eczema Y Back Problems Y Reflux/GERD Y GERD/Reflux Y Hypertension Y Gynecological History Statement/Question Response [...] Influenza, split virus, quadrivalent, PF 3 completed Deandra Lopez NP [address] [place] [address], [place] [facility], [address], [place] - [facility] & [place] 11/09/2022 13:30:10 Influenza, MDCK, quadrivalent, PF 2 completed [place]IA Cano - [facility] & [place] 11/01/2022 12:11:06 COVID-19, mRNA, LNP-S, PF, 100 mcg/0.5mL dose or 50 mcg/0.25mL dose 2 completed Mariana santana [place] [facility] [facility] & [place] 11/01/2022 12:11:06 COVID-19, mRNA, LNP-S, PF, 100 mcg/0.5mL dose or 50 mcg/0.25mL dose 1 completed Mariana santana [place] [facility] [facility] & [place] 11/01/2022 12:11:06 COVID-19, mRNA, LNP-S, PF, 100 mcg/0.5mL dose or 50 mcg/0.25mL dose 1 completed Mariana Truman null[place] [facility] 11/01/2022 12:11:06 COVID-19, mRNA, LNP-S, bivalent, PF, 50 mcg/0.5 mL or 25mcg/0.25 mL dose 2 completed Mariana Truman [place] [facility] 11/01/2022 12:11:06 influenza, unspecified formulation 8 completed Mariana Truman [place] 11/01/2022 12:11:06 Tdap 8 completed Mariana Truman [place] [facility] 11/01/2022 12:11:06 Influenza, split virus, trivalent, preservative 1 completed Mariana Truman [place] [facility] 11/01/2022 12:11:06 Influenza, split virus, trivalent, preservative 9 completed Mariana Truman [place] [facility] 11/01/2022 12:11:06 Influenza, split virus, trivalent, preservative 3 completed Mar[place] Truman [place] [facility] 11/01/2022 12:11:06 Td (adult), 2 Lf tetanus toxoid, preservative free, adsorbed 6 completed Mar[place] [facility] 11/01/2022 12:11:06 Hep B, adult 9 completed Mar[place] [facility] 11/01/2022 12:11:06 Hep B, adult 8 completed Mar[place] [facility] 11/01/2022 12:11:06 Influenza, split virus, quadrivalent, PF 0 completed Mar[place] [facility] 11/01/2022 12:11:06 Influenza, split virus, quadrivalent, PF 6 completed Mar[place] [facility] 11/01/2022 12:11:06 Influenza, split virus, quadrivalent, PF 7 completed Mar[place] 11/01/2022 12:11:06 Influenza, split virus, quadrivalent, PF 8 completed Mar[place] Truman [place] [facility] 11/01/2022 12:11:06 Hep A-Hep B 9 completed Mariana Amoro [place] [facility] 11/01/2022 12:11:06 Past Encounters Encounter ID Performer Location Encounter Start Date Encounter Closed Date Diagnosis/Indication Diagnosis SNOMED-CT Code Diagnosis ICD10 Code Diagnosis Note [id number] Dennis Raymundo Jr, M.D [facility] [address] [facility] [place] [id number] 11/02/2021 08:43:57 11/02/2021 09:24:48 Overactive urinary bladder 221103129 N32.81 Female str ess incontinence 15454839 N39.3 Urethritis 32317327 N34. 2 Dyspareunia 41891439 N94 .10 Atrophic vaginitis 04583 000 N95.2 Urge incon tinence of urine 89780171 N39.41 [id number] Deandra Lopez NP [facility] [address] [facility] [place] [id number] 11/04/2021 08:23:51 11/04/2021 09:28:03 Chest pain 34283062 R07.9 Will send patient to hospital for EKG and troponin levelour EKG machine is down in the officewill call with resultsPt will call Dr. Acosta and make an apptlikely needs a Lexiscan due to family hx of CAD Posttrauma tic stress disorder 99726018 F43.10 Patient was given a hand written script for her upcoming refillshe will fill in on 11/19This was done due to my Escript for controlled substances being down [id number] Mitzi Burdick NP [facility] [address] [facility] [place] [address] 11/17/2021 08:45:18 11/17/2021 10:47:08 Gastroesophageal reflux disease 033070220 K21.00 Symptoms remain well controlled with use of daily PPI. Will send refills today. Recommend continued reflux precaution s with avoidance of food triggers. Loose stool 375730852 R1 9.5 S/P subtotal colectomy and ileorectal anastomosi s 08/04/[address] Diaz due to chronic constipati on. Currently averages 3-7 loose bowel movements per day. Recommend daily use of OTC fiber supplement s. [id number] Liang Rodriguez Jr, MD [facility] [address] [place] [address] 12/27/2021 14:22:50 12/27/2021 14:46:19 Overactive urinary bladder 753129684 N32.81 patient with a history of overactive bladder. She continues on Gemtesa 75 mg a day with good results. Dyspareunia 28921950 N94 .10 patient states good results from the estrogen 2 to 3 times a week. She previously on a of vaginal suppositor y but it was too expensive and she is doing well with the estrogen alone. Female str ess incontinence 56568097 N39.3 resolved after transobtur ator tape. [id number] Deandra Lopez NP [facility] [address] [place] [address] 12/14/2021 09:53:26 12/14/2021 11:25:28 Diabetes mellitus 06314072 E11.9 check CBC, CMP and A1CDM well controlled on last labscontin ue current meds Hypercholesterolemia 136 22941 E78.00 check lipidspt on multiple cholestero l meds Anxiety 18673557 F41.9 stable on meds Paresthesia 08787898 R20 .2 patient having numbess and tingling all over her bodywill order B12 and iron panel Vitamin D deficiency 347 57856 E55.9 check Vit D Memory impairment 472284 006 R41.3 pt states that her memory is not good anymoreshe worries about thisMini mental is within normal limit with her education levelpt also worries about Fibromyalg iaFibro tool-posit trace for multiple markers Neck pain 92013864 M54.2 she does continue to have neck pain and this combined with her numbness-w ill order neck xrayconcer n for nerve impingemen twill go on and order PT with anticipati on for needing MRI Pain in left arm 4958192 00 M79.602 will order NCV as well [id number] Nimesh Moore M.D [facility] [address] [place] [id number] 12/23/2021 08:00:12 12/23/2021 08:50:30 Bilateral carpal tunnel syndrome 5146913506 3978905 G56.03 Numbness 90076772 R20.0 Sensory disorder 5641457 8 R20.9 [id number] Deandra Lopez NP [facility] [address] [place] [address] 01/14/2022 10:16:04 01/14/2022 10:35:06 Electrolytes outside reference range 649938341 E87.8 [id number] Deandra Lopez NP [facility] [address] [place] [address] 02/10/2022 11:01:41 02/10/2022 11:36:57 Neck pain 57628445 M54.2 pt has been doing PT on her neckpain is not getting better; therapist is concerned about a nerve issue in her neckwill go on and order a MRI of her Cspine Pain in left arm 0284162 00 M79.602 nerve conduction was not conclusive Migraine 42628704 G43.90 9 gave patient 3 samples of Nurtec ODTwe will see how this doeshad to remove her daith piercing due to infection and they have progressiv jacy worsened Degenerati on of cervical intervertebral disc 29412892 M50.30 will go on and order MRI of the spine [id number] Mitzi Burdick NP [address] [place] [address] 03/29/2022 09:33:34 04/01/2022 14:41:27 Diarrhea of presumed infectious origin 91197722 A09 Hx of subtotal colectomy and ileorectal anastomosi s 07/[address] Diaz due to chronic constipati on. Increased diarrhea over the past 1 month. Plan for stool studies to further evaluate. Recommend continued use of fiber supplement s. Hematochezia 120370774 K 92.1 Evaluated [facility] 03/20/22 for hematochez ia. Labs reviewed HGB 10.9, HCT 32.3, MCV 82.4. Negative occult blood. CT abd/pelvis noted left anterior mid abdomen epiploic appendagit is as well as hepatic steatosis. Plan for CBC today. Recommend colonoscop y to further evaluate. Generalize d abdominal pain 369557211 R10.84 1 month history of generalize d abdominal pain. Evaluated [facility] ED 03/20/22 for hematochez ia. Labs reviewed HGB 10.9, HCT 32.3, MCV 82.4. Negative occult blood. Normal LFT's. CT abd/pelvis noted left anterior mid abdomen epiploic appendagit is as well as hepatic steatosis. Recommend EGD/colono scopy for comprehens trace evaluation . Pt is scheduled for EGD/Colon 04/28 @ 2:00 Nausea 971361177 R11.0 Constant nausea. Recommend EGD to evaluate for gastritis, PUD, other. Anemia 346308987 D64.9 Evaluated [facility] ED 03/20/22 for hematochez ia. Labs reviewed HGB 10.9, HCT 32.3, MCV 82.4. Negative occult blood. Plan for EGD/colono scopy to further evaluate. Plan for labs today. [id number] Deandra Lopez NP [facility] [address] [facility] [place] [address] 04/04/2022 15:24:52 04/05/2022 15:25:25 Chronic diarrhea 292856427 K52.9 scheduled for Cscope and EGD on 04/11/[address] Joanne julian panel was negativela bs are stable stop the Metformin for nowcheck with pharmacy about crushing the Pristiq to help with absorption [id number] Deandra Lopez NP [facility] [address] [facility] [address] 05/03/2022 14:14:54 05/03/2022 15:31:24 Degeneration of cervical intervertebral disc 74694497 M50.30 pt scheduled for spinal surgery on 05/25/[address] Hamilton--repa ir of C6-7 disc herniation Chronic diarrhea 0919403 09 K52.9 pt had cscope recently Migraine 12746683 G43.91 9 pt some better with Nurtec ODT every otherstart monthly Emgality as well Emgality samples loading dose x2 given in officeLOT: [id number] P: 06/10/2023 Depressive disorder 3548 9007 F32.A patient struggling with all her health issues and her son's deployment she is on many different psych medsneeds to follow up with Dr. Ledesma [id number] Mitzi Burdick NP [facility] [address] [place] [address] [place] [address] 06/23/2022 09:52:08 06/23/2022 10:42:07 Gastro-esophageal reflux disease with esophagitis 188959505 K21.00 reflux esophagiti s confirmed pathology 04/11/2022 . Patient continues to use omeprazole with controlled GERD symptoms at this time. Gastritis 4432909 K29.70 Mild gastritis noted on EGD, confirmed with pathology. Negative H pylori. Recommend continued use of PPI as prescribed . Loose stool 472005616 R1 9.5 S/P subtotal colectomy and ileorectal anastomosi s 08/04/[address] Diaz due to chronic constipati on. Continues to average 3-7 loose bowel movements per day with urgency at times. No improvemen t with use of Lomotil. Recommend daily use of OTC fiber supplement s. Sigmoidosc opy 04/11/2022 with internal hemorrhoid s and poor bowel preparatio n noted. Concern for constipati on overflow given her symptoms. Recommend x-ray abdomen KUB to further evaluate. Will notify patient of results and formulate additional treatment plan at that time. [id number] Deandra Lopez NP [facility]- Dept [address] [facility] [place] [address] 07/15/2022 10:45:59 07/15/2022 11:40:47 Acute maxillary sinusitis 12199020 J01.00 start AugmentinW ill give patient Diflucan and nystatin as she frequently gets thrush and yeast infection [id number] Mitzi Burdick NP [facility] [address] CHAVIRA [address] [place] [address] 09/27/2022 08:28:46 09/27/2022 14:10:32 Constipation 04168486 K59.00 Continues to experience 1-6 loose bowel movements per day. Mild stool noted on xray 06/23/22. No improvemen t with fiber or miralax. Continues to report loose stool daily with sensation of incomplete bowel movements. S/P subtotal colectomy and ileorectal anastomosi s 08/04/[address] Diaz due to chronic constipati on. Sigmoidosc opy 04/11/2022 with internal hemorrhoid s and poor bowel preparatio n noted.Danyel mmend trial of Linzess 72 mcg po daily, samples for 8 days provided to patient in clinic today. Will send Rx based on response to sample medication . Gastro-eso phageal reflux disease with esophagitis 831613818 K21.00 reflux esophagiti s confirmed pathology 04/11/2022 . Patient continues esomeprazo le 40mg with controlled GERD symptoms. Will send refills today. [id number] Mitzi Burdick NP [facility] [address] [place] [address] 10/19/2022 13:35:01 10/25/2022 15:56:44 Gastro-esophageal reflux disease with esophagitis 022767910 K21.00 reflux esophagiti s confirmed pathology 04/11/2022 . Patient continues esomeprazo le 40mg with controlled GERD symptoms. Will send refills today. Lower abdominal pain 545 80522 R10.30 Lower abdominal pressure and sensation of incomplete bowel movements. Uncertain etiology as linzess 72 mcg samples caused severe diarrhea. Recommend xray abd KUB to further evaluate. Difficulty in ability to defecate 025939824 R19.8 Loose stool several times per day following subtotal colectomy and ileorectal anastomosi s 08/04/[address] Diaz d/t hx constipati on. Experienci ng difficulty with passage of stool that increases with use of Imodium. Internal hemorrhoid s noted on sigmoidosc opy 3/6/23. Will refer to PT for evaluation of possible pelvic floor dysfunctio n. Diarrhea 10504689 R19.7 S/P subtotal colectomy and ileorectal anastomosi s 08/04/[address] Diaz due to chronic constipati on. Continues to experience 1-6 loose bowel movements per day. Mild stool noted on xray 06/23/22. No improvemen t with fiber, miralax, or Linzess 72 mcg samples. Continues to report loose stool daily with sensation of incomplete bowel movements. Imodium caused increased difficulty with defecation . Sigmoidosc opy 04/11/2022 with internal hemorrhoid s and poor bowel preparatio n noted. Will refer to PT for evaluation of pelvic floor dysfunctio n. [id number] Deandra Lopez NP [facility]- Dept [address] [place], [place] [address] [address] 11/09/2022 10:38:16 11/09/2022 11:47:31 Essential hypertension 68909427 I10 BP stablepuls e is up slightly, patient will try increasing metoprolol to 50 mg BID and see how she doesneeds to watch BP closely Type 2 monisah betes mellitus without complication 197946871 E11.9 A1C stable without meds--5.8% Micro--ACR 300will monitor Vitamin D deficiency 347 38303 E55.9 check Vit D Vitamin B1 2 deficiency (non anemic) 24641179 E53.8 check B12 Acquired hypothyroidism 279833613 E03.9 check thyroidcon tinue levothyrox ine Mixed hyperlipidemia 267 871378 E78.2 check lipidscont inue statin Administra tion of influenza vaccine 55152743 Z23 Flu shot today [id number] Liang Rodriguez Jr, MD [facility] [address] [facility] [place] [address] 12/26/2022 10:02:13 12/26/2022 10:29:34 Overactive urinary bladder 204040789 N32.81 patient with a history of overactive bladder. She has been on Gemtesa but her insurance is not covering it any longer. will convert her over Myrbetriq 50 mg Dyspareunia 88413640 N94 .10 patient states good results from the estrogen 2 to 3 times a week. She previously on a of vaginal suppositor y but it was too expensive and she is doing well with the estrogen alone. Female str ess incontinence 93988263 N39.3 patient new complaint of some dribbling after urination. She has undergone previous transobtur ator tape for stress incontinen ce with good results. We discussed today the new for to help empty her bladder out with voiding and Kegel's to help with the dribbling. 203034 KRISHNA Esparza [address] [place] [address] 12/22/2022 08:51:04 12/23/2022 15:33:24 Diarrhea 35875072 R19.7 S/P subtotal colectomy and ileorectal anastomosi s 08/04/[address] Diaz due to chronic constipati on. Continues to experience loose bowel movements per day. Negative Xray 10/19/22. No improvemen t with fiber, xifaxan. Use of Imodium caused difficulty with defecation . Evaluated by PT for pelvic floor dysfunctio n. Sigmoidosc opy 04/11/2022 with internal hemorrhoid s and poor bowel preparatio n noted. Recommend dicyclomin e 20 mg po QID prn for treatment. Gastro-eso phageal reflux disease with esophagitis 429418685 K21.00 Remains well controlled with use of Esomeprazo le. 459843 KRISHNA Esparza [address] [place] [address] 02/14/2023 14:50:47 02/14/2023 16:21:57 Generalized abdominal pain 970478648 R10.84 generalize d abdominal pain with recent worsening symptoms over the past several weeks. Recommend labs today as well as CT abdomen with contrast to further evaluate. Diarrhea 73784259 R19.7 S/P subtotal colectomy and ileorectal anastomosi s 08/04/[address] Diaz due to chronic constipati on. Continues to experience diarrhea several times per day. Negative Xray 10/19/22. No improvemen t with dicyclomin e, fiber, xifaxan, or Imodium due to constipati on. Evaluated by PT for pelvic floor dysfunctio n. Sigmoidosc opy 04/11/2022 with internal hemorrhoid s and poor bowel preparatio n noted. Gastro-eso phageal reflux disease with esophagitis 921181648 K21.00 Remains well controlled with use of Esomeprazo le. [id number] Myrna Olmos MD [facility]- Dept [address] [facility] [place], [place] [address] 03/07/2023 15:36:25 03/07/2023 16:31:30 Essential hypertension 57068843 I10 Stable on metoprolol and HCTZ. Anemia 351075235 D64.9 Recent blood work for ortho prior to carpal tunnel release showed a slight anemia at 11.3. Will need to follow up with this in the upcoming future. Generalize d anxiety disorder 51260883 F41.1 Will continue with xanax. She has been on this medication for 14+ years. Taking hig h risk medication 8152491590 12368 Z91.89 Chronic constipation 236 723939 K59.09 Suggested she speak with her surgeon about a regimen for constipati on. 567399 Deandra Lopez NP [facility]- Dept [address] [facility] [place], [place] [address] 05/05/2023 07:57:01 05/05/2023 09:25:53 Posttraumatic stress disorder 79636561 F43.10 stable on alprazolam has a refill available Mixed hyperlipidemia 267 602733 E78.2 check lipidscont inue statin Essential hypertension 05395035 I10 Bp well controlled check labs Type 2 monisha betes mellitus without complication 299468999 E11.9 will check A1C [id number] Deandra Lopez NP [facility]- Dept 263 [address] [facility] [place], [place] [address] 06/15/2023 10:53:15 06/15/2023 11:24:09 Anemia 697358836 D64.9 [id number] Mitzi Burdick NP [facility] [address] [place] [address] [place] [address] 07/18/2023 12:54:10 07/18/2023 13:34:24 Diarrhea 30511021 R19.7 S/P subtotal colectomy and ileorectal anastomosi s 08/04/[address] Diaz due to chronic constipati on. Continues cholestyra mine prn for treatment. Flexible sigmoidosc opy with Dr. Diaz 03/2023 with negative pathology. No improvemen t with dicyclomin e, fiber, xifaxan, or Imodium due to constipati on.Sigmoid oscopy Dr. Johnson 04/11/2022 with internal hemorrhoid s and poor bowel preparatio n noted. Gastro-eso phageal reflux disease with esophagitis 092314871 K21.00 Recommend continued use of Esomeprazo le. Epigastric pain 15266615 R10.13 Epigastric abdominal pain with recent nausea and early satiety. Plan for H pylori breath test today. Recommend EGD to evaluate for H pylori gastritis, PUD, other. Recommend Carafate 1 g p.o. q.i.d.. History cholecyste ctomy. Hematochezia 594290124 K 92.1 2 week history of BRBPR, last episode 2 weeks ago. Plan for CBC today. Flex sigmoidosc opy reviewed 03/[address] Diaz appeared normal. Hx of internal hemorrhoid s on flex sig with Dr. Johnson 2022. Suspect benign outlet bleeding. [id number] Deandra Lopez NP [facility]- Dept 160 [address] [employer] [address] 07/18/2023 15:02:28 07/18/2023 16:23:31 Digital mucous cyst 296483569 M71.342 small digital cyst on left index finger+Heb erden nodes r/t Osteoarthr itisMonito r. If this gets worse she can discuss removal with orthopedic hand specialist Vesicular eczema of hand 961822530 L30.8 start Steroid creamavoid excessive hand washing Carpal avery gisselle syndrome of right wrist 8659924323 82721 G56.01 has f/u with Dr. 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 Diaz due to chronic constipati on. Continues cholestyra mine prn for treatment. Flexible sigmoidosc opy with Dr. Diaz 03/2023 with negative pathology. No improvemen t with dicyclomin e, fiber, xifaxan, or Imodium due to constipati on. Sigmoidosc opy Dr. Diaz 09/12/23 with internal hemorrhoid s noted. Gastro-eso phageal reflux disease with esophagitis 625890974 K21.00 Reflux esophagiti s confirmed on pathology from EGD 09/14/2023 . Recommend continued use of esomeprazo le as prescribed as well as continued avoidance of known food triggers as well as avoidance of eating 2-4 hours prior to lying down. Nonulcer dyspepsia 09718 07 K30 Continues to experience dyspepsia. No improvemen t with Carafate. EGD with reactive gastropath y and reflux esophagiti s negative H pylori or celiac. Recommend continued use of PPI as above as well as starting famotidine 40 mg p.o. HS. [id number] Deandra Lopez NP [facility]- Dept 244 [address] [facility] [place] [address] 02/20/2024 08:25:08 02/20/2024 09:41:42 Adult health examination 197943958 Z00.00 annual examcheck labs Preventati ve care:Mammo gram-duePa p smear-s/p hystColono scopy-2023 flex sigDEXA scan-age 59Vision-d ue 03/2024Dent al-denture sCOVID-x4F ne umonia-age 59Shingles -age 59 Type 2 monisha betes mellitus without complication 134204437 E11.9 A1C stable at 5.8%contro lled Micro Vitamin D deficiency 347 26863 E55.9 check Vit D Acquired hypothyroidism 057045850 E03.9 check thyroidcon tinue levothyrox ine Essential hypertension 41322728 I10 BP well controlled Mixed hyperlipidemia 267 083250 E78.2 check lipidscont inue statin Screening for malignant neoplasm of breast 774484661 Z12.39 order mammo [id number] [facility] [address] [place] [address] [place] [address] 04/02/2024 08:54:58 04/02/2024 09:53:22 Gastro-esophageal reflux disease with esophagitis 474579082 K21.00 Controlled with use of esomeprazo le 40 mg daily. Will send refills today. Reflux esophagiti s confirmed on pathology from EGD 09/14/2023 . Nonulcer dyspepsia 04759 07 K30 Continues famotidine 40 mg HS with improved symptoms. Recommend continued use as prescribed . Diarrhea 08714001 R19.7 Hx of subtotal colectomy and ileorectal anastomosi s 08/04/[address] Diaz. She continues to experience diarrhea and has failed multiple medication s to stop diarrhea as she is unable to evacuate stool. She is scheduled to follow up with [facility], Dr. Diaz, next week to discuss plans for permanent end ileostomy. Dysphagia 04608673 R13.1 0 Two month history of dysphagia solids and liquids. History of partial Schatzki's ring dilated on EGD 09/2023. Recommend modified barium swallow with speech therapy evaluation as well as esophagram to further evaluate. [id number] Deandra Lopez NP [facility]- Dept 648 [address] [facility] [place] [address] 05/31/2024 14:39:34 05/31/2024 16:46:09 Ileostomy present 995666538 Z93.2 pt doing well with the new ileostomys he is working with her Ostomy nurse-Deejay grove Hyponatremia 79095314 E8 7.1 check CMP to see how sodium is doing now that she is stable post discharge 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 957041161 D50.0 check iron and CBC Generalize d anxiety disorder 98689151 F41.1 taper down to 1 tablet dailypt is wanting to try and get off the medication still seeing Psych in [place] [id number] Deandra Lopez NP [facility]- Dept [address] [place] [address] 06/10/2024 13:54:40 06/10/2024 15:03:28 Postoperative seroma 337206217 K91.872 pt on Augmentins till draining the serous fluid but not as much as beforeshe has an appt next week with her stoma nurseenc. her to call and ask about how long to expect this to drainthe incision is clean and dry---no sign of bacterial infection on exam Health Concerns Section Related Observation LastModified by Organization Detai ls LastModified Time None Recorded Concern Status LastModified by Organization Details LastModified Time None Recorded Advance Directives Directive Y: Payers Insurance Date Sequence Insurance Name Policy Number Policy Lacy Covered Member ID Lacy Member ID Guarantor Name 07/15/2024 1 [employer] [facility] (MEDICAID HMO) Demetra Diaz [id number] Demetra Diaz Notes Date Note Type Note Provider Name and Address Organization Details Recorded Time 4 text/html Patient returns to clinic today for follow-up post upper endoscopy completed 09/14/2023. EGD was significant for possible Schatzki's ring dilated up to 20 mm using dilating balloon. Mild gastritis was noted. Pathology confirmed reactive gastropathy as well as reflux esophagitis. She continues esomeprazole for treatment of GERD. She does continue to experience some dyspepsia and upper abdominal discomfort however has improved. She followed up with [facility], Dr. Diaz, for diarrhea and hematochezia. Hx of subtotal colectomy and ileorectal anastomosis 08/04/[address] Diaz. She continues cholestyramine powder prn with improved diarrhea. Found to have internal hemorrhoids on proctosigmoidoscopy from 09/12/[address] Diaz. Mitzi Burdick NP [address] [place] [address], [address], [place], [address], [facility] & [place] 10/03/2023 13:30:20 5 text/html HCM Female Cancer screening Colonoscopy: due at age 44 Declines 2023 Mammogram: not indicated due at age 39 ordered today per OBGYN Declines due Pap: not indicated per OBGYN aged out s/p ALBERT Declines total hyst Lung cancer: not indicated Laboratory Lipids: due Diabetes: dueTSH-due Vision-due 03/2024Dental-has dentures Immunizations Influenza: 4COVID x 4 Pneumococcal: due at age 64 age 59 Tdap: 2007 Zoster: age 59 Other: DEXA: due at age 60-65 Declines age 59 Patient presents today in the clinic for annual exam and follow-up. She denies any current complaints or concerns. She is seeing her sleep medicine provider, pain management provider an orthopedist. She also sees GI and her colorectal surgeon. She states everything seems to be stable at this time. She is taking all of her medicines as directed. Psych-tien, ma-kyung Lopez NP [address] [facility] [address], [address], [place], [address], [facility] 02/20/2024 10:00:32 5 text/html Patient returns to clinic today for follow-up on GERD and dyspepsia. She continues esomeprazole 40 mg daily as well as famotidine 40 mg HS with controlled symptoms. She has been experiencing some dysphagia over the past 2 months. Episodes occur with both solids and liquids. Last EGD 09/2023 with possible Schatzki's ring dilated up to 20 mm using dilating balloon. Pathology confirmed reactive gastropathy as well as reflux esophagitis. Hx of subtotal colectomy and ileorectal anastomosis 08/04/[address] Diaz. She continues to experience diarrhea and has failed multiple medications to stop diarrhea as she is unable to evacuate stool. She is scheduled to follow up with [facility], Dr. Diaz, next week to discuss plans for permanent end ileostomy. Mitzi Burdick NP [address], [address], [place], [address], [facility] & [place] 04/04/2024 22:35:43 5 text/html Patient presents today in the clinic [...] get an order for ileostomy supplies from [facility]. Deandra Lopez NP [address], [address], [address], [facility] - [place] & [place] 06/02/2024 11:41:26 5 text/html Patient presents today in the clinic for follow-up from her recent overnight ER stay. Patient was found to have a postoperative seroma near her incision from her colectomy. Patient states she was very confused about the whole visit because several doctors in the ER said that she needed to have this area drained but her colorectal surgeon said that it did not need to be drained. She states that he seemed very aggravated that he had to come in and check on her. She states that her stoma is fine and her ileostomy is doing well. She states that she has not had any fever or chills. She has been taking Augmentin that they sent her home on. She just wanted to check in and make sure there is nothing else that is being missed. Patient denies any redness around her incision. She states she has an appointment next week with her stoma nurse. Deandra Lopez NP [address], [address], [place], [address], [facility] - [place] & [place] 06/10/2024 17:00:19 OBGyn Episode No OBEpisode recorded.
--- OUTSIDE RECORDS SUMMARY | 2024-07-16 15:16 | XMS_ITS | Encounter Summary ---
Author Organization [facility] Address [address] [place] [address] Care Team Providers Care Manager It Security Name Role Phone Deandra Lopez APRN Primary Care Provider +1- [phone] Deandra Lopez APRN Primary Care Provider +1- [phone] Encounter Details Date Type Department Care Team (Late st Contact Info) Description 08/07/2021 Transcribed Document [facility] [place] [address] ProviderElaine MD [address] [place] [address] Social History Tobacco Use Types Packs/Day [...] Cerner Conversion Note - Historical ProviderMD - 08/07/2021 9:24 AM CDT Patient: DEMETRA MARTINEZ Age: 41 Years Sex: Female : 1980 [facility] POST OP NOTE Subjective: Objective: Vitals Signs (last 24 hrs) Last Charted Minimum Maximum Temp H 100.8 (AUG 07 06:25) 97.9 (AUG 06 15:00) H 100.8 (AUG 07 06:25) Apical HR H 105 (AUG 07 09:18) 88 (AUG 06 21:22) H 105 (AUG 07 09:18) Mon HR 109 (AUG 07 06:25) 97 (AUG 06 10:30) 109 (AUG 07 03:45) Resp Rate 14 (AUG 07 06:25) 14 (AUG 07 06:25) 16 (AUG 06 10:30) SBP 98 (AUG 07 06:25) 92 (AUG 06 23:00) 110 (AUG 06 15:00) DBP L 41 (AUG 07:) L 41 (AUG 07 06:) 73 (AUG 06 15:00) MAP 58 (AUG 07:) 58 (AUG 07 06:25) 82 (AUG 06 15:00) SpO2 L 90 (AUG 07:) L 89 (AUG 06 23:00) 95 (AUG 06 19:21) IV Fluids & Drains Last 24 Hours (7a-7a) Intake (1) Dextrose 5% with 0.45% NaCl and KCl 20 mEq/L 1,000 mL 1350 mL Intake Total: 1350mL Output (0) No drain output events found in the last 24 hours. Exam: Abdomen soft. Wounds clean and intact. Impression: S/P subtotal colectomy and ileorectal anastomosis. Patient had crampy abdominal pain with likely postoperative ileus yesterday. NG tube placed and had a fair amount out, though documentation was not performed. We have elected to clamp NG tube today for 8 hours and if residuals are less than 200 cc, then we will remove it. I do note that patient's creatinine is up to 1.2. We will have to carefully monitor I's and O's. Patient's pain is in much better control today. Patient is passing gas and has moved her bowels. Plan: NG tube clamping trial. Check labs tomorrow. Encourage ambulation. documented in this encounter Plan of Treatment Upcoming Encounters Date Type Department Care Team (Late st Contact Info) Description 07/17/2024 11:00 AM EDT Appointment [facility] Wound & Ostomy Therapy [address] [place] [address] 08/28/2024 9:15 AM EDT Office Visit [facility] Urology - [address] [place] [address] Chandrika Santana, ELECTRIC TRIPPER MACHINE OPERATOR [address] [place] [address] 04/17/2025 8:30 AM EDT Office Visit [facility] Cardiology - [place] [address] [place] [address] Tamara Sow PA-C [address] [place] [address] documented as of this encounter Visit Diagnoses Not on filedocumented in this encounter Care Teams Manager It Security Relationship Specialty Start Date End Date Deandra Lopez APRN PCP - General Nurse Practitioner 04/18/22 06/03/24 Deandra Lopez, ELECTRIC TRIPPER MACHINE OPERATOR [address] [place] [address] PCP - General Nurse Practitioner 06/04/24 documented as of this encounter
--- OUTSIDE RECORDS SUMMARY | 2024-07-16 15:16 | XMS_ITS | Encounter Summary ---
Author Organization [facility] Address [address] [place] [address] Care Team Providers Care Hospitalist Program Director Name Role Phone Deandra Lopez APRN Primary Care Provider +1- [phone] Deandra Lopez APRN Primary Care Provider +1- [phone] Encounter Details Date Type Department Care Team (Late st Contact Info) Description 08/07/2021 Transcribed Document [facility] [place] [address] ProviderElaine MD [address] [place], [place] [id number] Social History Tobacco Use Types Packs/Day Years [...] Agata Conversion Note - Historical ProviderMD - 08/07/2021 2:00 AM CDT [employer] Details Entered On: 08/07/2021 2:41 EDT Performed On: 08/07/2021 2:00 EDT by Gila Wood Rn Order Details Transport Mode Order Detail : Wheelchair Isolation Precautions Order Detail : Standard Precautions Order Detail : 0 Lift/Transfer : Minimal Central Line Order Detail : No Room Service : Appropriate Arterial Line : No Patient Needs Meds Crushed/Liquid : No Gila Wood Rn - 08/07/2021 2:41 EDT Electronically signed by [facility] Conversion Master Carpenter Cerner at 05/27/2022 4:33 PM CDT documented in this encounter Plan of Treatment Upcoming Encounters Date Type Department Care Team (Late st Contact Info) Description 07/17/2024 11:00 AM EDT Appointment [facility] Wound & Ostomy Therapy [address] [place] [address] 08/28/2024 9:15 AM EDT Office Visit [facility] Urology - [address] [place] [address] Chandrika Santana, SOLAR LAB TECHNICIAN [address] [place] [address] 04/17/2025 8:30 AM EDT Office Visit [facility] Cardiology - [place] [address] [place] [address] Tamara Sow PA-C [address] [facility] [address] [place] [address] documented as of this encounter Visit Diagnoses Not on filedocumented in this encounter Care Teams Hospitalist Program Director Relationship Specialty Start Date End Date Deandra Lopez APRN PCP - General Nurse Practitioner 04/18/22 06/03/24 Deandra Lopez, SOLAR LAB TECHNICIAN [address] [place] [address] PCP - General Nurse Practitioner 06/04/24 documented as of this encounter
--- OUTSIDE RECORDS SUMMARY | 2024-07-16 15:16 | XMS_ITS | Encounter Summary ---
Author Organization [facility] In iatives Address [address] [place] [address] Care Team Providers Care Railroad Watchman Name Role Phone Deandra Lopez APRN Primary Care Provider +1- [phone] Deandra Lopez APRN Primary Care Provider +1- [phone] Encounter Details Date Type Department Care Team (Late st Contact Info) Description 08/07/2021 Transcribed Document [facility] 1 [place] [address] Christa Muniz MD [address] [place] [address] [place] [address] Social History Tobacco Use Types Packs/Day Years Used Date Smoking Tobacco: Never Assessed Comments Unknown Sex and Gender Information Value Date Recorded Sex Assigned at Female 12/08/2021 2:39 PM CDT Legal Sex Female 5:20 PM CDT Gender Identity Female 12/08/2021 2:39 PM CDT Sexual Orientation Straight 12/08/2021 2: 39 PM CDT documented as of this encounter Miscellaneous Notes * Cerner Conversion Note - Christa Muniz MD - 08/07/2021 11:38 AM EDT Patient: DEMETRA MARTINEZ Age: 41 years Sex: Female : 1980 Associated Diagnoses: None Author: CHRISTA MUNIZ MD-INT Subjective Patient was seen and examined today 08/07/2021. Continue requiring nasogastric tube which was clamped this morning. No fever or chills Passing gas pain Review of Systems Constitutional: No fever, No chills. Eye: Negative. Ear/Nose/Mouth/Throat: Negative. Respiratory: Negative. Cardiovascular: No chest pain. Gastrointestinal: No nausea, No vomiting. Genitourinary: No dysuria. Hematology/Lymphatics: Negative. Endocrine: Negative. Immunologic Musculoskeletal Integumentary Neurologic: Negative. Psychiatric: Negative. Health Status Allergies: Allergic Reactions (Selected) Severity [...] dizziness Current medications: (Selected) Inpatient Medications Ordered BuSpar: 10 mg, Oral, TID Dextrose 5% with 0.45% NaCl and KCl 20 mEq/L 1,000 mL: 75 mL/Hr, IntraVENous Dextrose 50% injection: 12.5 Gram, IV Push, Q15Min, PRN: Other (See Comment) Dextrose 50% injection: 25 Gram, IV Push, Q15Min, PRN: Other (See Comment) Dextrose 50% injection: 25 Gram, IV Push, Q15Min, PRN: Other (See Comment) Dextrose 50% injection: 25 Gram, IV Push, Q15Min, PRN: Other (See Comment) Imdur: 30 mg, Oral, QAM Lipitor: 80 mg, Oral, At Bedtime Melatonin: 3 mg, Oral, At Bedtime Myrbetriq: 50 mg, Oral, Daily Pristiq: 100 mg, Oral, Daily Provigil: 200 mg, Oral, QAM Vascepa: 1 Gm, Oral, Daily Vistaril: 50 mg, Oral, TID Vitamin D2: 50,000 Units, Oral, Weekly Vraylar: 3 mg, Oral, Daily Xanax: 1 mg, Oral, TID aluminum hydroxide/magnesium hydroxide/simethicone 200 mg-200 mg-20 mg/5 mL oral suspension: 15 mL, Oral, Q4H, PRN: Gas alvimopan: 12 mg, Oral, BID cloNIDine 50 mcg + dexAMETHasone 4 mg + bupivacaine 0.25% injectable solution 28.35 mL + EPINEPHrin...: 50 mcg, 0.5 mL, 1800 mL/Hr, Nerve Root Block, 1-Time cloNIDine 50 mcg + dexAMETHasone 4 mg + bupivacaine 0.25% injectable solution 28.35 mL + EPINEPHrin...: 50 mcg, 0.5 mL, 1800 mL/Hr, Nerve Root Block, 1-Time diazePAM: 5 mg, IV Push, Q6H, PRN: Other (See Comment) estradiol: 2 mg, Oral, Daily glucagon: 1 mg, IntraMuscular, Q15Min, PRN: Other (See Comment) glucose 4 g oral tablet, chewable: 16 Gram, 4 Tab, Chew, Q15Min, PRN: Other (See Comment) glucose 40% oral gel: 15 Gram, 37.5 mL, Oral, Q15Min, PRN: Other (See Comment) heparin: 5,000 Units, SubCutaneous, Q8H insulin lispro sliding scale: Scale A:, SubCutaneous, AC and at Bedtime lamoTRIgine: 100 mg, Oral, BID levothyroxine: 125 mcg, Oral, Daily metoprolol tartrate: 75 mg, Oral, BID morphine: 2 mg, IV Push, Q2H, PRN: Pain (Severe 7-10) ondansetron: 4 mg, IV Push, Q6H, PRN: Nausea/Vomiting oxyCODONE: 5 mg, Oral, Q6H, PRN: Pain (Moderate 4-6) prazosin: 2 mg, Oral, Daily prazosin: 8 mg, Oral, At Bedtime Pending Complete acetaminophen: 1,000 mg, Oral, Q6H ketorolac: 15 mg, IV Push, Q6H Documented Medications Documented BuSpar: 10 mg, Oral, [...] 8 mg, Oral, At Bedtime, 0 Refill(s), Medications (36) Active Scheduled: (23) ALPRAZolam 0.5 mg tab 1 mg 2 Tab, Oral, TID alvimopan 12 mg cap 12 mg 1 Cap, Oral, BID atorvastatin 40 mg tab 80 mg 2 Tab, Oral, At Bedtime busPIRone 10 mg tab 10 mg 1 Tab, Oral, TID cariprazine 1.5 mg cap 3 mg 2 Cap, Oral, Daily cloNIDine 50 mcg + dexAMETHasone 4 mg + bupivacaine 0.25% 28.35 mL + EPINEPHrine 0.15 mg 50 mcg 0.5 mL, Nerve Root Block, 1-Time cloNIDine 50 mcg + dexAMETHasone 4 mg + bupivacaine 0.25% 28.35 mL + EPINEPHrine 0.15 mg 50 mcg 0.5 mL, Nerve Root Block, 1-Time desvenlafaxine ER 50 mg tab 100 mg 2 Tab, Oral, Daily ergocalciferol 50,000 unit cap 50,000 Units 1 Cap, Oral, Weekly estradiol 1 mg tab 2 mg 2 Tab, Oral, Daily heparin 5,000 units/1 mL inj 5,000 Units 1 mL, SubCutaneous, Q8H hydrOXYzine pamoate 25 mg cap 50 mg 2 Cap, Oral, TID icosapent 1 g cap 1 Gm, Oral, Daily insulin lispro 1 unit/0.01 mL inj Scale A:, SubCutaneous, AC and at Bedtime isosorbide MONOnitrate ER 30 mg tab 30 mg 1 Tab, Oral, QAM lamoTRIgine 100 mg tab 100 mg 1 Tab, Oral, BID levothyroxine 125 mcg tab 125 mcg 1 Tab, Oral, Daily melatonin 3 mg tab 3 mg 1 Tab, Oral, At Bedtime metoprolol tartrate 25 mg tab 75 mg 3 Tab, Oral, BID mirabegron 25 mg ER tab 50 mg 2 Tab, Oral, Daily modafinil 200 mg tab 200 mg 1 Tab, Oral, QAM prazosin 1 mg cap 2 mg 2 Cap, Oral, Daily prazosin 1 mg cap 8 mg 8 Cap, Oral, At Bedtime Continuous: (1) D5/NaCl 0.45%-KCl 20 mEq 1,000 mL 1,000 mL, IntraVENous, 75 mL/Hr PRN: (12) al hydrox/mag hydrox/simeth 30 mL liq 15 mL, Oral, Q4H dextrose 50% 25 g/50 mL inj syr 25 Gram 50 mL, IV Push, Q15Min dextrose 50% 25 g/50 mL inj syr 25 Gram 50 mL, IV Push, Q15Min dextrose 50% 25 g/50 mL inj syr 25 Gram 50 mL, IV Push, Q15Min dextrose 50% 25 g/50 mL inj syr 12.5 Gram 25 mL, IV Push, Q15Min diazepam 10 mg/2 mL inj syr 5 mg 1 mL, IV Push, Q6H glucagon 1 mg/1 mL inj 1 mg 1 mL, IntraMuscular, Q15Min glucose 4 g tab 16 Gram 4 Tab, Chew, Q15Min glucose 40% gel 15 g 15 Gram 37.5 mL, Oral, Q15Min morphine 2 mg/1 ml inj 2 mg 1 mL, IV Push, Q2H ondansetron 4 mg/2 mL inj 4 mg 2 mL, IV Push, Q6H oxyCODONE 5 mg tab 5 mg 1 Tab, Oral, Q6H Problem list: Medical BETTY (obstructive sleep apnea) / IMO [id number] / Confirmed, Active Problems (14) Angina Anxiety / depression / Bipolar / PTSD Back pain Bladder spasms Cardiac arrhythmia Chronic idiopathic constipation Diabetes mellitus type II Fast heart beat GERD - Gastro-esophageal reflux disease Hyperlipidemia Irritable bowel syndrome Narcolepsy BETTY (obstructive sleep apnea) Thyroid disease Objective VS/Measurements Vitals Signs (last 24 hrs) Last Charted Minimum Maximum Temp H 100.8 (AUG 07 06:25) 97.9 (AUG 06 15:00) H 100.8 (AUG 07 06:25) Apical HR H 105 (AUG 07 09:18) 88 (AUG 06 21:22) H 105 (AUG 07 09:18) Mon HR 109 (AUG 07 06:25) 99 (AUG 06 18:00) 109 (AUG 07 03:45) Resp Rate 14 (AUG 07 06:25) 14 (AUG 07 06:25) 16 (AUG 06 15:00) SBP 98 (AUG 07 06:25) 92 (AUG 06 23:00) 110 (AUG 06 15:00) DBP L 41 (AUG 07 06:25) L 41 (AUG 07 06:25) 73 (AUG 06 15:00) MAP 58 (AUG 07 06:25) 58 (AUG 07 06:25) 82 (AUG 06 15:00) SpO2 L 90 (AUG 07 06:25) L 89 (AUG 06 23:00) 95 (AUG 06 19:21) General: Alert and oriented, No acute distress. Eye: Pupils are equal, round and reactive to light, Extraocular movements are intact, Normal conjunctiva. HENT: Normocephalic. Neck: Supple, Non-tender. Respiratory: Lungs are clear to auscultation, Breath sounds are equal. Cardiovascular: Normal rate, Regular rhythm, No murmur. Gastrointestinal: Soft, Non-tender. Musculoskeletal: Normal range of motion, No tenderness. Integumentary: Warm, No rash. Neurologic: Alert, Oriented, No focal deficits. Psychiatric: Cooperative, Appropriate mood & affect. Review / Management AUG 07 06:48 L 130 102 12 / H 149 4.7 L 20 H 1.20 \ AUG 07 06:48 \ L 11.0 / 9.7 189 / L 33.1 \ No Radiology Results Found Results review: Labs (Last four charted values) WBC 9.7 (AUG 07) 7.6 (AUG 06) H 10.8 (AUG 05) 6.6 (JUL 28) HB L 11.0 (AUG 07) 11.4 (AUG 06) 11.2 (AUG 05) 12.3 (JUL 28) HCT L 33.1 (AUG 07) L 33.2 (AUG 06) L 34.0 (AUG 05) 37.5 (JUL 28) Plt 189 (AUG 07) 206 (AUG 06) 227 (AUG 05) 237 (JUL 28) Na L 130 (AUG 07) L 133 (AUG 06) 137 (AUG 05) 136 (JUL 28) K 4.7 (AUG 07) 3.9 (AUG 06) 4.5 (AUG 05) 4.3 (JUL 28) Cl 102 (AUG 07) 104 (AUG 06) 107 (AUG 05) 105 (JUL 28) CO2 L 20 (AUG 07) 21 (AUG 06) 24 (AUG 05) 27 (JUL 28) BUN 12 (AUG 07) L 5 (AUG 06) 7 (AUG 05) 7 (JUL 28) Cr H 1.20 (AUG 07) 1.00 (AUG 06) 0.90 (AUG 05) 1.00 (JUL 28) Glu R H 149 (AUG 07) H 168 (AUG 06) H 148 (AUG 05) 103 (JUL 28) Ca 8.5 (AUG 07) 8.4 (AUG 06) L 7.9 (AUG 05) 9.2 (JUL 28) . Medication Changes from Previous Midnight to Current New Medications: No Qualifying New Meds Discontinued Medications: No Qualifying Discontinued Meds Impression and Plan #Chronic constipation s/p partial colectomy with ileorectal anastomosis nasogastric tube clamped Advance diet Colorectal surgery following: Recommend continue with Valium and ambulation for now #Diabetes Hold home meds, cover with SSI #Bipolar depression Continue prazosin, Vraylar, Xanax,, Lamictal #Hypothyroidism Synthroid GI and DVT prophylaxis Disposition: Okay to discharge from medicine stand point once cleared by surgeon, hopefully tomorrow documented in this encounter Plan of Treatment Upcoming Encounters Date Type Department Care Team (Late st Contact Info) Description 07/17/2024 11:00 AM EDT Appointment [facility] Wound & Ostomy Therapy 1 [place] [address] 08/28/2024 9:15 AM EDT Office Visit [facility] Urology - [address] [place] [address] Chandrika Santana, RISK REDUCTION COUNSELOR [address] [place] [address] 04/17/2025 8:30 AM EDT Office Visit [facility] Cardiology - [place] [address] [place] [address] Tamara Sow PA-C 227 [facility] [address] [place] [address] documented as of this encounter Visit Diagnoses Not on filedocumented in this encounter Care Teams Railroad Watchman Relationship Specialty Start Date End Date Deandra Lopez APRN PCP - General Nurse Practitioner 04/18/22 06/03/24 Deandra Lopez, RISK REDUCTION COUNSELOR [address] [place] [address] PCP - General Nurse Practitioner 06/04/24 documented as of this encounter
--- OUTSIDE RECORDS SUMMARY | 2024-07-16 15:16 | XMS_ITS | Encounter Summary ---
Author Organization [facility] Address [address] [place] [address] Care Team Providers Care Fixed Income Analyst Name Role Phone Deandra Lopez APRN Primary Care Provider +1- [phone] Deandra Lopez APRN Primary Care Provider +1- [phone] Encounter Details Date Type Department Care Team (Late st Contact Info) Description 08/08/2021 Transcribed Document [facility] [place] [facility] [place] [address] ProviderElaine MD [address] [place] [id number] Social History Tobacco Use Types Packs/Day Years [...] Cerner Conversion Note - Historical ProviderMD - 08/08/2021 10:48 AM CDT Final Discharge Planning Entered On: 08/08/2021 10:48 EDT Performed On: 08/08/2021 10:48 EDT by ANGELINA TURNER, Inventory Control Coordinator-Bilingual Kindergarten Teacher Final Discharge Planning Physician Notified Patient is Ready for Discharge? : Yes ANGELINA TURNER, Inventory Control Coordinator-Bilingual Kindergarten Teacher - 08/08/2021 10:54 EDT Discharge Arrangements : Patient Post-Acute Information Patient Name: DEMETRA MARTINEZ Gender: Female : [birth year] Age: 41 Years No Post-Acute Placement(s) Listed No Post-Acute Service(s) Listed No [place] Referral(s) Listed Patient Offered Choice/Affiliations Explained : Yes Designation of Choice Signed : Yes Transportation Needs : Family/Friend Follow Up Appointment Scheduled : No Is Patient High/Moderate Readmission Risk? : No Patient/Family Notified of Plan : Yes Support Person/Pt Rep Notified of Plan : Yes Is Patient Ready for Discharge? : Yes Discharge To Care Management : Home/Residential/Senior Living or Self Care -01 ANGELINA TURNER, Inventory Control Coordinator-Bilingual Kindergarten Teacher - 08/08/2021 10:48 EDT Final Narrative Note Final Narrative Note : Patient is discharging home. Requested walker. Cm sent to [facility]. Patient denied having other discharge needs. Patient has transport home. ANGELINA TURNER Inventory Control Coordinator-Bilingual Kindergarten Teacher - 08/08/2021 10:54 EDT Electronically signed by Ganesh Higginbotham Conversion Massage Therapy Instructor Cerner at 05/27/2022 4:42 PM CDT documented in this encounter Plan of Treatment Upcoming Encounters Date Type Department Care Team (Late st Contact Info) Description 07/17/2024 11:00 AM EDT Appointment [facility] Wound & Ostomy Therapy 1 [place] [address] 08/28/2024 9:15 AM EDT Office Visit [facility] Urology - [address] [place] [address] Chandrika Santana, GUN SEALING MACHINE OPERATOR [address] [place] [address] 04/17/2025 8:30 AM EDT Office Visit [facility] Cardiology - [place] [address] [place] [address] Tamara Sow PA-C 227 [facility] [address] [place] [address] documented as of this encounter Visit Diagnoses Not on filedocumented in this encounter Care Teams Fixed Income Analyst Relationship Specialty Start Date End Date Deandra Lopez APRN PCP - General Nurse Practitioner 04/18/22 06/03/24 Deandra Lopez, GUN SEALING MACHINE OPERATOR [address] [place] [address] PCP - General Nurse Practitioner 06/04/24 documented as of this encounter
--- OUTSIDE RECORDS SUMMARY | 2024-07-16 15:16 | XMS_ITS | Encounter Summary ---
Author Organization [facility] In iatives Address [address] [place] [address] Care Team Providers Care Bi Architect Name Role Phone Deandra Lopez APRN Primary Care Provider +1- [phone] Deandra Lopez APRN Primary Care Provider +1- [phone] Encounter Details Date Type Department Care Team (Late st Contact Info) Description 08/23/2021 Transcribed Document [facility] [place] [address] ProviderElaine MD [address] [place], [place] [id number] Social History Tobacco Use Types Packs/Day Years [...] Conversion Note - Historical ProviderMD - 08/23/2021 5:00 PM CDT Chart Check - Review Order Profile Entered On: 08/23/2021 15:42 EDT Performed On: 08/23/2021 17:00 EDT by Nubia Lovign, RN Chart Check Powerplans Initiated/Discontinued as Appropriate : Yes All Active Orders Reviewed : Yes Nubia Loving RN - 08/23/2021 15:42 EDT Electronically signed by Anahy Cox Branson Conversion Tennis Ball Cover Cementer Cerner at 05/27/2022 4:53 PM CDT documented in this encounter Plan of Treatment Upcoming Encounters Date Type Department Care Team (Late st Contact Info) Description 07/17/2024 11:00 AM EDT Appointment [facility] 1 [place] [address] 08/28/2024 9:15 AM EDT Office Visit [facility] Urology - [address] [place] [address] Chandrika Santana, CLINICAL LABORATORY AIDE [address] [place] [address] 04/17/2025 8:30 AM EDT Office Visit [facility] Cardiology - [place] [address] [place] [address] Tamara Sow PA-C [address] [facility] [address] [place] [address] documented as of this encounter Visit Diagnoses Not on filedocumented in this encounter Care Teams Bi Architect Relationship Specialty Start Date End Date Deandra Lopez, KRISTYN PCP - General Nurse Practitioner 04/18/22 06/03/24 Deandra Lopez, CLINICAL LABORATORY AIDE [address] [place] [address] PCP - General Nurse Practitioner 06/04/24 documented as of this encounter
--- OUTSIDE RECORDS SUMMARY | 2024-07-16 15:16 | XMS_ITS | Encounter Summary ---
Author Organization Healthcare Address [address] [place] [address] Care Team Providers Care Cnc Maintenance Mechanic Name Role Phone JohnDeandra Jeb SIMONS Primary Care Provider +1- [phone] Encounter Details Date Type Department Care Team (Latest Contact Info) Description 06/13/2024 Travel Social History Tobacco Use Types Packs/Day [...] AM EDT documented as of this encounter Functional Status * Calculated C-SSRS Risk Score (Lifetime/Recent) Answer Date of Assessment Author No Risk Indicated 06/13/2024 8:25 PM EDT Dre Michelle RN * Question Answer Date of Assessment Author 1. Wish to be (Past 1 Month) No 025 8:25 PM EDT Dre Michelle, RAYSA 2. Non-Specific Active Suici kye Thoughts (Past 1 Month) No 06/13/2024 8:25 PM EDT Dre Michelle, RAYSA 6. Suicidal Behavior (Lifetime) No 8:25 PM EDT Dre Michelle RN documented as of this encounter Plan of Treatment Upcoming Encounters Date Type Department Care Team (Late st Contact Info) Description 09/24/2024 10:30 AM EDT Office Visit [facility] [address] [place] [address] Kishor Mcdonald MD [address] [place] [address] documented as of this encounter [...] documented as of this encounter Care Teams Cnc Maintenance Mechanic Relationship Specialty Start Date End Date Deandra Lopez APRN [address] [place] [address] PCP - General 10/18/23 documented as of this encounter
--- OUTSIDE RECORDS SUMMARY | 2024-07-16 15:16 | XMS_ITS | Encounter Summary ---
Author [facility] Address [address] [facility] [place] [address] Care Team Providers Care Hr Administrator Name Role Phone Deandra Lopez APRN Primary Care Provider +1- [phone] Deandra Lopez APRN Primary Care Provider +1- [phone] Encounter Details Date Type Department Care Team (Late st Contact Info) Description 08/05/2021 Transcribed Document [facility] [place] [address] ProviderElaine MD [address] [place] [address] Social History Tobacco Use Types [...] Conversion Note - Historical ProviderMD - 08/05/2021 2:01 PM CDT UM Authorization Entered On: 08/05/2021 14:04 EDT Performed On: 08/05/2021 14:01 EDT by Tonie Whelan, Ampoule Washing Machine Operator Primary Insurance Authorization Authorization and Policy Numbers : Insurance 1 Health Plan: [facility] Policy Number: [id number] Authorization Number: [id number] Insurance Primary Name : [facility] [id number] Authorization Status-Primary : Drg approved Reference Number-Primary : [id number] Number of Days Authorized-Primary : 8 Day(s) Authorized Service Begin Date-Primary : 08/04/2021 EDT Authorized Service End Date-Primary : 08/12/2021 EDT Authorization Comments-Primary : Authorized per fax 08/05/21 @ 1334. Approved DRG admission. Next review due 08/13. Authorization [id number] is per fax. Historical Authorization Comments-Primary : Comment 1: inpt clinicals faxed via [employer] 08/04-08/05 (AKBAR GUERIN, RN-UTILIZATION MANAGEMENT REVIEW NON-EXEMPT 08/05/2021 11:29) Comment 2: per [facility] approved INPT auth# [id number] no los was noted (TYREL SALDANA, Merchandise Complaint Adjuster 08/03/2021 11:56) Tonie Whelan, Ampoule Washing Machine Operator - 08/05/2021 14:01 EDT documented in this encounter Plan of Treatment Upcoming Encounters Date Type Department Care Team (Late st Contact Info) Description 07/17/2024 11:00 AM EDT Appointment [facility] Wound & Ostomy Therapy [address] [place] [address] 08/28/2024 9:15 AM EDT Office Visit [facility] Urology - [address] [place] [address] Chandrika Santana, CLOTHING SALES ASSISTANT [address] [place] [address] 04/17/2025 8:30 AM EDT Office Visit [facility] Cardiology - [place] [address] [place] [address] Tamara Sow PA-C 227 [facility] [address] [place] [address] documented as of this encounter Visit Diagnoses Not on filedocumented in this encounter Care Teams Hr Administrator Relationship Specialty Start Date End Date Deandra Lopez APRN PCP - General Nurse Practitioner 04/18/22 06/03/24 Deandra Lopez, KRISTYN [address] [place] [address] PCP - General Nurse Practitioner 06/04/24 documented as of this encounter
--- OUTSIDE RECORDS SUMMARY | 2024-07-16 15:16 | XMS_ITS | Encounter Summary ---
Author Organization Healthcare Address [address] [place] [address] Care Team Providers Care Registered Private Duty Nurse Name Role Phone JohnDeandra Jeb SIMONS Primary Care Provider +1- [phone] Encounter Details Date Type Department Care Team (Late st Contact Info) Description 12/21/2023 Orders Only External Location [address] [place] [phone] Provider, External Social History Tobacco Use Types Packs/Day Years Used Date Smoking Tobacco: Former Cigarettes Q uit: 11/06/2021 Smokeless Tobacco: Never Comments:Quit Alcohol Use Standard Drinks/Week Comments Never 0 (1 standard drink = 0.6 oz pur e alcohol) PHQ-2 Answer Date Recorded Patient Health Questionnaire-2 Score 3 10/17/2023 PHQ-9 Answer Date Recorded Patient Health Questionnaire-9 Score 8 10/17/2023 Comments Unknown Sex and Gender Information Value [...] Medicine [address] [place] [address] Kishor Mcdonald MD [address] [place] [address] documented as of this encounter Procedures Procedure Name Priority Date/Time Associated Diagnosis Comments POC ULTRASOUND 12/21/2023 documented in this encounter Results * POC Imaging (12/21/2023) Anatomical Region Laterality Modality Pelvis Other 12/21/2023 us External Provider IMG POINT OF CARE ULTRASOUND F inal Result documented in this encounter Visit Diagnoses Not on filedocumented in this encounter Additional Health Concerns Assessment Noted Time PHQ-9 Depression Total Score: 8 10/17/19 24 2:43 PM EDT A fall risk assessment has been complete d for the patient 12/21/2023 8:24 AM EST A Body Mass Index follow-up plan has been documented for the patient 12/21/2023 12:55 PM EST documented as of this encounter Care Teams Registered Private Duty Nurse Relationship Specialty Start Date End Date Deandra Lopez APRN [address] [place] [address] PCP - General 10/18/23 documented as of this encounter
--- OUTSIDE RECORDS SUMMARY | 2024-07-16 15:16 | XMS_ITS | Encounter Summary ---
Author Organization [facility] In iatives Address [address] [place] [address] Care Team Providers Care Occupational Therapy Program Director Name Role Phone Deandra Lopez APRN Primary Care Provider +1- [phone] Deandra Lopez APRN Primary Care Provider +1- [phone] Encounter Details Date Type Department Care Team (Late st Contact Info) Description 08/21/2021 Transcribed Document [facility] [place] [facility] [place] [address] ProviderElaine MD [address] [place] [place] [id number] Social History Tobacco Use Types Packs/Day Years [...] Cersylvester Conversion Note - Historical ProviderMD - 08/21/2021 2:00 AM CDT Trimming Caser Details Entered On: 08/21/2021 3:19 EDT Performed On: 08/21/2021 2:00 EDT by Sidra Dent RN-PATIENT CARE BEDSIDE NON-EXEMPT Order Details Transport Mode Order Detail : Ambulatory Isolation Precautions Order Detail : Standard Precautions Oxygen Order Detail : 1 Lift/Transfer : Independent Patient Needs Meds Crushed/Liquid : No Sidra Dent RN-PATIENT CARE BEDSIDE NON-EXEMPT - 08/21/2021 3:19 EDT documented in this encounter Plan of Treatment Upcoming Encounters Date Type Department Care Team (Late st Contact Info) Description 07/17/2024 11:00 AM EDT Appointment [facility] Wound & Ostomy Therapy 1 [place] [address] 08/28/2024 9:15 AM EDT Office Visit [facility] Urology - [address] [place] [address] Chandrika Santana, PREMISES TECHNICIAN [address] [place] [address] 04/17/2025 8:30 AM EDT Office Visit [facility] Cardiology - [place] [address] [place] [address] Tamara Sow PA-C [address] [facility] 101 [place] [address] documented as of this encounter Visit Diagnoses Not on filedocumented in this encounter Care Teams Occupational Therapy Program Director Relationship Specialty Start Date End Date Deandra Lopez APRN PCP - General Nurse Practitioner 04/18/22 06/03/24 Deandra Lopez, PREMISES TECHNICIAN [address] [place] [address] PCP - General Nurse Practitioner 06/04/24 documented as of this encounter
--- OUTSIDE RECORDS SUMMARY | 2024-07-16 15:16 | XMS_ITS | Encounter Summary ---
Author Organization [facility] Address [address] [place] [address] Care Team Providers Care Brewing Director Name Role Phone Deandra Lopez APRN Primary Care Provider +1- [phone] Deandra Lopez APRN Primary Care Provider +1- [phone] Encounter Details Date Type Department Care Team (Late st Contact Info) Description 08/05/2021 Transcribed Document [facility] [place] [address] ProviderElaine MD [address] [place], [place] [id number] Social History Tobacco Use Types Packs/Day Years [...] PM CDT Pain Assessment Entered On: 08/05/2021 15:59 EDT Performed On: 08/05/2021 13:35 EDT by JENNY CHRISTINA RN Intervention Information: ketorolac Performed by JENNY CHRISTINA RN on 08/05/2021 13:05:00 EDT ketorolac,15mg IV Push,Right Hand Pain Assessment Pain Assessment : Follow-up assessment Pain Scale Goal : 4 Pain Scale Used : 0-10 Scale JENNY CHRISTINA RN - 08/05/2021 15:59 EDT Pain Scale Intensity : 5 JENNY CHRISTINA RN - 08/05/2021 15:59 EDT Image 4 - Images currently included in the form version of this document have not been included in the text rendition version of the form. documented in this encounter Plan of Treatment Upcoming Encounters Date Type Department Care Team (Late st Contact Info) Description 07/17/2024 11:00 AM EDT Appointment [facility] Wound & Ostomy Therapy 1 [place] [address] 08/28/2024 9:15 AM EDT Office Visit [facility] Urology - [address] [place] [address] Chandrika Santana, BALL WARPER TENDER [address] [place] [address] 04/17/2025 8:30 AM EDT Office Visit [facility] Cardiology - [place] [address] [place] [address] Tamara Sow PA-C 227 [facility] 101 [place] [address] documented as of this encounter Visit Diagnoses Not on filedocumented in this encounter Care Teams Brewing Director Relationship Specialty Start Date End Date Deandra Lopez APRN PCP - General Nurse Practitioner 04/18/22 06/03/24 Deandra Lopez, BALL WARPER TENDER [address] [place] [address] PCP - General Nurse Practitioner 06/04/24 documented as of this encounter
--- OUTSIDE RECORDS SUMMARY | 2024-07-16 15:16 | XMS_ITS | Encounter Summary ---
Author Organization [facility] In iatives Address [address] [place] [address] Care Team Providers Care Psych Coordinator Name Role Phone Deandra Lopez APRN Primary Care Provider +1- [phone] Deandra Lopez APRN Primary Care Provider +1- [phone] Encounter Details Date Type Department Care Team (Late st Contact Info) Description 08/23/2021 Transcribed Document [facility] [place] [facility] [place] [address] ProviderElaine MD [address] [place] [address] Social History Tobacco Use Types [...] Conversion Note - Historical ProviderMD - 08/23/2021 12:36 PM CDT Meds to Bed Enrollment Entered On: 08/23/2021 12:36 EDT Performed On: 08/23/2021 12:36 EDT by Parish Lopez Air Conditioning Service Technician Cert Lead Meds to Bed Enrollment Patient Enrollment Decision: : Yes/enroll in meds to bed program Parish Lopez Air Conditioning Service Technician Cert Lead - 08/23/2021 12:36 EDT documented in this encounter Plan of Treatment Upcoming Encounters Date Type Department Care Team (Late st Contact Info) Description 07/17/2024 11:00 AM EDT Appointment [facility] Wound & Ostomy Therapy 1 [place] [address] 08/28/2024 9:15 AM EDT Office Visit [facility] Urology - [address] [place] [address] Chandrika Santana, OPERATIONS WELDER [address] [place] [address] 04/17/2025 8:30 AM EDT Office Visit [facility] Cardiology - [place] [address] [place] [address] Tamara Sow PA-C [address] [facility] [address] [place] [address] documented as of this encounter Visit Diagnoses Not on filedocumented in this encounter Care Teams Psych Coordinator Relationship Specialty Start Date End Date Deandra Lopez, KRISTYN PCP - General Nurse Practitioner 04/18/22 06/03/24 Deandra Lopez, OPERATIONS WELDER [address] [place] [address] PCP - General Nurse Practitioner 06/04/24 documented as of this encounter
--- OUTSIDE RECORDS SUMMARY | 2024-07-16 15:16 | XMS_ITS | Encounter Summary ---
Author Organization [facility] In iatives Address [address] [place] [address] Care Team Providers Care Mailing Jogger Name Role Phone Deandra Lopez APRN Primary Care Provider +1- [phone] Encounter Details Date Type Department Care Team (Latest Contact Info) Description 06/04/2024 Travel Social History Tobacco Use Types Packs/Day [...] Do you speak a language other than Surinamese at [facility]? No 05/22/2024 Do you want help [...] PM CDT documented as of this encounter Plan of Treatment Upcoming Encounters Date Type Department Care Team (Late st Contact Info) Description 07/17/2024 11:00 AM EDT Appointment [facility] Wound & Ostomy Therapy 1 [place] [address] 08/28/2024 9:15 AM EDT Office Visit [facility] Urology - [address] [place] [address] Chandrika Santana, SOLE STAINER [address] [place] [address] 04/17/2025 8:30 AM EDT Office Visit [facility] Cardiology - [place] [address] [place] [address] Tamara Sow PA-C 227 [facility] 101 [place] [address] documented as of this encounter Visit Diagnoses Not on filedocumented in this encounter Care Teams Mailing Jogger Relationship Specialty Start Date End Date Deandra Lopez, SOLE STAINER [address] [place] [address] PCP - General Nurse Practitioner 06/04/24 documented as of this encounter
--- OUTSIDE RECORDS SUMMARY | 2024-07-16 15:16 | XMS_ITS | Encounter Summary ---
Author Organization [facility] In iatives Address [address] [place] [address] Care Team Providers Care Foreign Agent Name Role Phone Deandra Lopez APRN Primary Care Provider +1- [phone] Encounter Details Date Type Department Care Team [...] Do you speak a language other than Argentine at [facility]? No 05/22/2024 Do you want help [...] [facility] Wound & Ostomy Therapy 1 [place] [address] 08/28/2024 9:15 AM EDT Office Visit [facility] Urology - [address] [place] [address] Chandrika Santana, INDUSTRIAL PARAMEDIC [address] [place] [address] 04/17/2025 8:30 AM EDT Office Visit [facility] Cardiology - [place] [address] [place] [address] Tamara Sow PA-C [address] [facility] 101 [place] [address] documented as of this encounter Visit Diagnoses Not on filedocumented in this encounter Care Teams Foreign Agent Relationship Specialty Start Date End Date Deandra Lopez, INDUSTRIAL PARAMEDIC [address] [place] [address] PCP - General Nurse Practitioner 06/04/24 documented as of this encounter
--- OUTSIDE RECORDS SUMMARY | 2024-07-16 15:17 | XMS_ITS | Encounter Summary ---
Author Organization [facility] In iatives Address [address] [place] [address] Care Team Providers Care Plate Glass Polisher Name Role Phone Deandra Lopez APRN Primary Care Provider +1- [phone] Encounter Details Date Type Department Care Team (Latest Contact Info) Description 05/22/2024 Travel Social History Tobacco Use Types Packs/Day [...] Do you speak a language other than Somali at [facility]? No 05/22/2024 Do you want help with [...] [facility] Wound & Ostomy Therapy 1 [place] [address] 08/28/2024 9:15 AM EDT Office Visit [facility] Urology - [address] [place] [address] Chandrika Santana, IRIDOLOGIST [address] [place] [address] 04/17/2025 8:30 AM EDT Office Visit [facility] Cardiology - [place] [address] [place] [address] Tamara Sow PA-C 227 [facility] 101 [place] [address] documented as of this encounter Visit Diagnoses Not on filedocumented in this encounter Care Teams Plate Glass Polisher Relationship Specialty Start Date End Date Deandra Lopez APRN PCP - General Nurse Practitioner 04/18/22 06/03/24 documented as of this encounter
--- OUTSIDE RECORDS SUMMARY | 2024-07-16 15:17 | XMS_ITS | Encounter Summary ---
Author Organization [facility] Address [address] [place] [address] Care Team Providers Care Spacecraft Systems Engineer Name Role Phone Deandra Lopez APRN Primary Care Provider +1- [phone] Deandra Lopez APRN Primary Care Provider +1- [phone] Encounter Details Date Type Department Care Team (Late st Contact Info) Description 08/10/2021 Transcribed Document [facility] [place] [facility] [place] [address] ProviderElaine MD [address] [place] [address] Social History Tobacco Use Types [...] Cerner Conversion Note - Historical ProviderMD - 08/10/2021 12:41 PM CDT UM Authorization Entered On: 08/10/2021 12:41 EDT Performed On: 08/10/2021 12:41 EDT by Tonie Whelan, Engineering Design Manager Primary Insurance Authorization Authorization and Policy Numbers : Insurance 1 Health Plan: [facility] Policy Number: [id number] Authorization Number: [facility] Insurance Primary Name : [facility] [id number] Authorization Status-Primary : Drg approved Auth/Referral Contact Name-Primary : [place] Reference Number-Primary : [id number] Authorization Number-Primary : [id number] Number of Days Authorized-Primary : 8 Day(s) Authorized Service Begin Date-Primary : 08/04/2021 EDT Authorized Service End Date-Primary : 08/12/2021 EDT Authorization Comments-Primary : Discharge date and summary faxed. Historical Authorization Comments-Primary : Comment 1: Authorized per fax 08/05/21 @ 1334. Approved DRG admission. Next review due 08/13. Authorization [id number] is per fax. (Tonie Whelan, Engineering Design Manager 08/05/2021 14:01) Comment 2: inpt clinicals faxed via cortex 08/04-08/05 (AKBAR GUERIN RN-UTILIZATION MANAGEMENT REVIEW NON-EXEMPT 08/05/2021 11:29) Comment 3: per [facility] approved INPT auth# [id number] no los was noted (TYREL SALDANA, Geropsychologist 08/03/2021 11:56) Tonie Whelan, Engineering Design Manager - 08/10/2021 12:41 EDT Electronically signed by Anahy [facility] Conversion Space Physicist Cerner at 05/27/2022 4:43 PM CDT documented in this encounter Plan of Treatment Upcoming Encounters Date Type Department Care Team (Late st Contact Info) Description 07/17/2024 11:00 AM EDT Appointment [facility] Wound & Ostomy Therapy 1 [place] [address] 08/28/2024 9:15 AM EDT Office Visit [facility] Urology - [address] [place] [address] Chandrika Santana, ADMITTING INTERVIEWER [address] [place] [address] 04/17/2025 8:30 AM EDT Office Visit [facility] Cardiology - [place] [address] [place] [address] Tamara Sow PA-C 227 [facility] 101 [place] [address] documented as of this encounter Visit Diagnoses Not on filedocumented in this encounter Care Teams Spacecraft Systems Engineer Relationship Specialty Start Date End Date Deandra Lopez APRN PCP - General Nurse Practitioner 04/18/22 06/03/24 Deandra Lopez, ADMITTING INTERVIEWER [address] [place] [address] PCP - General Nurse Practitioner 06/04/24 documented as of this encounter
--- OUTSIDE RECORDS SUMMARY | 2024-07-16 15:17 | XMS_ITS | Encounter Summary ---
Author Organization [facility] In iatives Address [address] [place] [address] Care Team Providers Care Polymer Chemist Name Role Phone Deandra Lopez APRN Primary Care Provider +1- [phone] Deandra Lopez APRN Primary Care Provider +1- [phone] Encounter Details Date Type Department Care Team (Late st Contact Info) Description 08/08/2021 Transcribed Document [facility] [place] [facility] [place] [address] ProviderElaine MD [address] [place] [address] Social History Tobacco Use Types [...] Conversion Note - Historical ProviderMD - 08/08/2021 5:00 AM CDT Chart Check - Review Order Profile Entered On: 08/08/2021 3:25 EDT Performed On: 08/08/2021 5:00 EDT by VIANEY LEMA RN Chart Check Powerplans Initiated/Discontinued as Appropriate : Yes All Active Orders Reviewed : Yes VIANEY LEMA RN - 08/08/2021 3:25 EDT Electronically signed by [facility] Conversion Corn Press Operator Cerner at 05/27/2022 4:57 PM CDT documented in this encounter Plan of Treatment Upcoming Encounters Date Type Department Care Team (Late st Contact Info) Description 07/17/2024 11:00 AM EDT Appointment [facility] Wound & Ostomy Therapy 1 [place] [address] 08/28/2024 9:15 AM EDT Office Visit [facility] Urology - [address] [place] [address] Chandrika Santana, CENTRAL OFFICE REPAIRER SUPERVISOR [address] [place] [address] 04/17/2025 8:30 AM EDT Office Visit [facility] Cardiology - [place] [address] [place] [address] Tamara Sow PA-C 227 [facility] [address] [place] [address] documented as of this encounter Visit Diagnoses Not on filedocumented in this encounter Care Teams Polymer Chemist Relationship Specialty Start Date End Date Deandra Lopez APRN PCP - General Nurse Practitioner 04/18/22 06/03/24 Deandra Lopez, CENTRAL OFFICE REPAIRER SUPERVISOR [address] [place] [address] PCP - General Nurse Practitioner 06/04/24 documented as of this encounter
--- OUTSIDE RECORDS SUMMARY | 2024-07-16 15:17 | XMS_ITS | Encounter Summary ---
Author Organization [facility] Address [address] [place] [address] Care Team Providers Care Anesthesiology Faculty Name Role Phone Gloria Ibanez APRN Primary Care Provider +1- [phone] Gloria Ibanez APRN Primary Care Provider +1- [phone] Encounter Details Date Type Department Care Team (Late st Contact Info) Description 08/13/2021 Transcribed Document [facility] [place] [facility] [place] [address] ProviderElaine MD [address] [place], [place] [id number] Social History Tobacco Use Types Packs/Day Years [...] Cerner Conversion Note - Historical ProviderMD - 08/13/2021 4:09 PM CDT Patient Resource Center Entered On: 08/13/2021 16:13 EDT Performed On: 08/13/2021 16:09 EDT by Laura Deluca, SHEET TURNER Patient Resource Center Provider Status : EST Other Established Provider Name : Gloria Ibanez Patient Phone Number : [phone] Patient Insurance Type : Medicaid (ex. Well[employer], Passport) Source of Referral : Case management Location of Patient : Case management referral Primary Care Scheduled : Yes Primary Care Scheduled Type : Non CMG Primary Care Provider Name : Gloria Ibanez Primary Care Appointment Date/Time : 08/23/2021 11:15 EDT Specialty Care Scheduled : Already scheduled Specialty Type Scheduled1 : Colorectal Surgery Colorectal Provider Name : Ethan Diaz Colorectal Appointment Date/Time : 08/19/2021 16:00 EDT Qualify for Diabetes and/or Nutrition Referral : No Wound Care Appointment Made : No Why Patient Visited ED- Specialty spent : Other How Patient Arrived at ED : Other Primary Language : Finnish Patient Resource Center Comment : PCP appt made, COLORECTAL appt already made Follow Up Needed : No Laura Deluca, SHEET TURNER - 08/13/2021 16:09 EDT Electronically signed by Anahy [facility] Conversion Hazardous Substances Scientist Cerner at 05/27/2022 4:50 PM CDT documented in this encounter Plan of Treatment Upcoming Encounters Date Type Department Care Team (Late st Contact Info) Description 07/17/2024 11:00 AM EDT Appointment [facility] Wound & Ostomy Therapy 1 [place] [address] 08/28/2024 9:15 AM EDT Office Visit [facility] Urology - [address] [place] [address] Chandrika Santana, KRISTYN [address] [place] [address] 04/17/2025 8:30 AM EDT Office Visit [facility] Cardiology - [place] [address] [place] [address] Tamara Sow PA-C 227 [facility] 101 [place] [address] documented as of this encounter Visit Diagnoses Not on filedocumented in this encounter Care Teams Anesthesiology Faculty Relationship Specialty Start Date End Date Gloria Ibanez APRN PCP - General Nurse Practitioner 04/18/22 06/03/24 Gloria Ibanez, STILL PHOTOGRAPHER [address] [place] [address] PCP - General Nurse Practitioner 06/04/24 documented as of this encounter
--- OUTSIDE RECORDS SUMMARY | 2024-07-16 15:17 | XMS_ITS | Encounter Summary ---
Author Organization [facility] In iatives Address [address] [place] [address] Care Team Providers Care Core Mounter Name Role Phone Deandra Lopez APRN Primary Care Provider +1- [phone] Encounter Details Date Type Department Care Team (Latest Contact Info) Description 07/11/2024 Travel Social History Tobacco Use Types Packs/Day [...] Do you speak a language other than Ecuadorean at [facility]? No 05/22/2024 [...] [place] Wound & Ostomy Therapy 1 [place] [address] 08/28/2024 9:15 AM EDT [facility] Urology - [address] [place] [address] Chandrika Santana, C JAVA DEVELOPER [address] [place] [address] 04/17/2025 8:30 AM EDT [facility] Cardiology - [place] [address] [place] [address] Tamara Sow PA-C 227 [facility] 101 [place] [address] documented as of this encounter Visit Diagnoses Not on filedocumented in this encounter Care Teams Core Mounter Relationship Specialty Start Date End Date Deandra Lopez, C JAVA DEVELOPER [address] [place] [address] PCP - General Nurse Practitioner 06/04/24 documented as of this encounter
--- OUTSIDE RECORDS SUMMARY | 2024-07-16 15:17 | XMS_ITS | Encounter Summary ---
Author Organization [facility] In iatives Address [address] [place] [address] Care Team Providers Care Napper Runner Name Role Phone Deandra Lopez APRN Primary Care Provider +1- [phone] Encounter Details Date Type Department Care Team (Latest Contact Info) Description 05/28/2024 Travel Social History Tobacco Use Types Packs/Day [...] Do you speak a language other than Mauritian at [facility]? No 05/22/2024 Do you want [...] [facility] Wound & Ostomy Therapy 1 [place] [address] 08/28/2024 9:15 AM EDT Office Visit [facility] Urology - [address] [place] [address] Chandrika Santana, DRESSED POULTRY GRADER [address] [place] [address] 04/17/2025 8:30 AM EDT Office Visit [facility] Cardiology - [place] [address] [place] [address] Tamara Sow PA-C 227 [facility] [address] [place] [address] documented as of this encounter Visit Diagnoses Not on filedocumented in this encounter Care Teams Napper Runner Relationship Specialty Start Date End Date Deandra Lopez APRN PCP - General Nurse Practitioner 04/18/22 06/03/24 documented as of this encounter
--- OUTSIDE RECORDS SUMMARY | 2024-07-16 15:17 | XMS_ITS | Encounter Summary ---
Author Organization [facility] In iatives Address [address] [place] [address] Care Team Providers Care Plasma Processing Technician Name Role Phone Deandra Lopez APRN Primary Care Provider +1- [phone] Deandra Lopez APRN Primary Care Provider +1- [phone] Encounter Details Date Type Department Care Team (Late st Contact Info) Description 08/20/2021 Transcribed Document [facility] [place] [facility] [place] [address] ProviderElaine MD [address] [place] [address] [id number] Social History Tobacco Use Types Packs/Day Years [...] Notes * Cerner Conversion Note - Historical Provider, - 08/20/2021 11:51 PM CDT Admission History, Adult Entered On: 08/21/2021 0:06 EDT Performed On: 08/20/2021 23:51 EDT by Sidra Dent RN-PATIENT CARE BEDSIDE NON-EXEMPT Advance Directive Patient has Advance Directive *Q : Yes, Advance Directive on file Advance Directive Type : Living will Copy Advance Directive Verified/on Chart : No Sidra Dent RN-PATIENT CARE BEDSIDE NON-EXEMPT - 08/20/2021 23:57 EDT Anesthesia/Transfusion History Family History of Anesthesia Reaction : Prior transfusion without reaction Transfusion History : Prior anesthesia without reaction Family History of Anesthesia Reaction : Other: Mother has trouble waking up from anesthesia Sidra Dent RN-PATIENT CARE BEDSIDE NON-EXEMPT - 08/20/2021 23:57 EDT Functional Assessment Living Situation : Home Current Home Treatments : Blood glucose monitoring, CPAP Sidra Dent RN-PATIENT CARE BEDSIDE NON-EXEMPT - 08/20/2021 23:57 EDT General Info Preferred Name : Demetra Legal Guardian : No Support Person/Pt Rep Contact Information : [phone] Want Family/Rep/Phys Notified of Admit : No Emergency Contact #1 : Lillie Sarmiento Emergency Contact #1 Emergency Contact #1 Relationship : Boyfriend Emergency Contact #2 : x Emergency Contact #2 Phone Number : x Emergency Contact #2 Relationship : x Primary Language : Gambian Preferred Communication Mode : Verbal Communication Barrier : None Painter Needed : No Sidra Dent RN-PATIENT CARE BEDSIDE NON-EXEMPT - 08/20/2021 23:57 EDT Fall Risk Scales ABCs Fall Injury Risk Identification : None RODRIGUEZ Hx Falls Immediate/Within 3 Months : No Rodriguez Secondary Diagnosis : Yes RODRIGUEZ Use of Ambulatory Aid : None RODRIGUEZ IV Therapy or IV Access : Yes Rodriguez Gait/Transferring : Normal, bedrest, immobile Rodriguez Mental Status : Oriented to own ability Rodriguez Fall Risk Score : 35 RODRIGUEZ Fall Scale Risk Level : 25-45 Medium Risk [place] Fall Interventions : Adequate lighting, Assistive devices within reach, Call device within reach, Hourly comfort/safety rounds, Non-slip footwear, Personal items within reach, Reinforced to call for assistance before getting out of bed, Room free of clutter/spills, Upper side-rails up, Wheels locked, Wires/Cords secured Sidra Dent RN-PATIENT CARE BEDSIDE NON-EXEMPT - 08/20/2021 23:57 EDT Health Histories Smoking Status : 5-9 cigarettes (between 1/4 to 1/2 pack)/day in last 30 days Smokeless Tobacco Status : Never Desires Tobacco Cessation Medication : No Reason for No Tobacco Cessation Medication : Refuses FDA approved medications Implant/Device Type, Junior Bookkeeper and Model : spinal cord stimulator Sidra Dent RN-PATIENT CARE BEDSIDE NON-EXEMPT - 08/20/2021 23:57 EDT Social History (As Of: 08/21/2021 00:06:30 EDT) Tobacco: 5-9 cigarettes (between 1/4 to [...] and Weight, Clinical Dosing Height Source : Estimated Height Entry Format : Henderson Height, Feet : 5 ft(Converted to: 152 cm, 60 Inch) Height, Inches : 5 Inch(Converted to: 0 ft 5 Inch, 12.70 cm) Clinical Height : 165.1 cm Weight Source : Bed scale Weight Entry Format : Metric, kilograms Weight, Kilograms : 99.0 kg(Converted to: 218 lb 4 oz) Clinical Dosing Weight : 99 kg Body Surface Area (BSA) : 2.05 m2 Body Mass Index : 36.3 kg/m2 (HI) [place] Body Weight : 57 kg Sidra Dent RN-PATIENT CARE BEDSIDE NON-EXEMPT - 08/20/2021 23:57 EDT Infectious Disease History Does patient have symptoms of COVID-19? : No Tested for COVID19 in the past 14 days : Yes, Patient stated results Negative Does the Patient state known exposure to a COVID-19 positive case in the last 14 days? : No Patient Vaccinated for COVID-19 : Fully vaccinated Sidra Dent RN-PATIENT CARE BEDSIDE NON-EXEMPT - 08/20/2021 23:57 EDT Infectious Disease Risk Screening Grid Cough < 2 wks of unknown origin : NO Cough > 2 weeks : NO Blood in Sputum : NO Fever or self-reported Fever : NO Rash of unknown origin : NO Headache : NO Stiff neck : NO Night Sweats : NO Unexplained Weight Loss : NO Diarrhea (3 episode per day) : NO Sidra Dent RN-PATIENT CARE [facility] NON-EXEMPT - 08/20/2021 23:57 EDT Physical contact outside [place] in the last 30 days : No Hospitalized in Foreign Country : No Infectious Disease History : Chicken pox/Shingles, Other: fevers blisters INF Disease TB Screening Calc : 0 INF Disease Recent Travel Calc : 0 Sidra Dent RN-PATIENT CARE [facility] NON-EXEMPT - 08/20/2021 23:57 EDT Influenza Vaccine Asmt, Adult Previous Vaccines from Immunization Schedule : No qualifying data available. Influenza Immunization, Current Season : Yes Sidra Dent RN-PATIENT CARE [facility] NON-EXEMPT - 08/20/2021 23:57 EDT Pneumococcal Vaccine Previous Vaccines from Immunization Schedule : No qualifying data available. Pneumonia Immunization Received : No Pneumococcal Risk Assessment < Age 65 : None Sidra Dent RN-PATIENT CARE [facility] NON-EXEMPT - 08/20/2021 23:57 EDT Order Details Patient Needs Meds Crushed/Liquid : No Sidra Dent RN-PATIENT CARE [facility] NON-EXEMPT - 08/20/2021 23:57 EDT Nutrition History Eating Poorly Due to Decreased Appetite : Yes Unplanned Weight Loss in Past 3-6 Months : No Malnutrition Screening Tool Total(mal) : 1 Malnutrition Screening Tool Risk Level : Patient not at risk Sidra Dent RN-PATIENT CARE [facility] NON-EXEMPT - 08/20/2021 23:57 EDT [place] Suicide Severity Rating Scale (C-SSRS) CSSRS Past Month Wish to be : No CSSRS Past Month Suicidal Thoughts : No CSSRS Lifetime Suicide Behavior : No Suicide Severity Rating Score : 0 Suicide Severity Rating : No Additional Care Required at this time Sidra Dent RN-PATIENT CARE [facility] NON-EXEMPT - 08/20/2021 23:57 EDT Psychosocial History Do You Have a History of the Following? : Anxiety, Bipolar Disorder, Depression, Post Traumatic Stress Disorder Currently in Unsafe Situation : No Sidra Dent RN-PATIENT CARE [facility] NON-EXEMPT - 08/20/2021 23:57 EDT Sleep Apnea Risk Assmt BiPAP/CPAP Ordered for Home Use : Yes Hx of Obstructive Sleep Apnea Diagnosis : Yes BiPAP/CPAP Used at Home : Yes Age over 50 Years Old : No Gender Male : No Sidra Dent RN-PATIENT CARE BEDSIDE NON-EXEMPT - 08/20/2021 23:57 EDT Valuables and Belongings Valuables and Belongings : Clothing, Personal items, No comfort items, No jewelry, No personal devices, No assistive devices, No respiratory devices, No medications Clothing : Common streetwear Clothing Disposition : With patient Personal Items : Cell phone Personal Items Disposition : With patient Sidra Dent RN-PATIENT CARE BEDSIDE NON-EXEMPT - 08/20/2021 23:57 EDT Electronically signed by Ganesh Higginbotham Conversion Waterworks Pump Station Operator Cerner at 05/27/2022 4:39 PM CDT documented in this encounter Plan of Treatment Upcoming Encounters Date Type Department Care Team (Late st Contact Info) Description 07/17/2024 11:00 AM EDT Appointment [facility] Wound & Ostomy Therapy [address] [place] [address] 08/28/2024 9:15 AM EDT Office Visit [facility] Urology - [address] [place] [address] Chandrika Santana, KRISTYN [address] [place] [address] 04/17/2025 8:30 AM EDT Office Visit [facility] Cardiology - [place] [address] [place] [address] Tamara Sow PA-C [address] [facility] [address] [place] [address] documented as of this encounter Visit Diagnoses Not on filedocumented in this encounter Care Teams Plasma Processing Technician Relationship Specialty Start Date End Date Deandra Lopez APRN PCP - General Nurse Practitioner 04/18/22 06/03/24 Deandra Lopez, FILM FLAT INSPECTOR [address] [place], [place] [id number] PCP - General Nurse Practitioner 06/04/24 documented as of this encounter
--- OUTSIDE RECORDS SUMMARY | 2024-07-16 15:17 | XMS_ITS | Encounter Summary ---
Author Organization [facility] In iatives Address [address] [place] [address] Care Team Providers Care Information Systems Manager Name Role Phone Deandra Lopez APRN Primary Care Provider +1- [phone] Deandra Lopez APRN Primary Care Provider +1- [phone] Encounter Details Date Type Department Care Team (Late st Contact Info) Description 08/08/2021 Transcribed Document [facility] 1 [place] [address] Purvi Muniz MD [address] [place] [address] [place] [address] Social History Tobacco Use Types Packs/Day Years Used Date Smoking Tobacco: Never Assessed Comments Unknown Sex and Gender Information Value Date Recorded Sex Assigned at Female 12/08/2021 2:39 PM CDT Legal Sex Female 5:20 PM CDT Gender Identity Female 12/08/2021 2:39 PM CDT Sexual Orientation Straight 12/08/2021 2: 39 PM CDT documented as of this encounter Miscellaneous Notes * Cerner Conversion Note - Purvi Muniz MD - 08/08/2021 12:22 PM EDT Patient: DEMETRA MARTINEZ Age: 41 Years Sex: Female : 1980 Admit Date 08/04/2021 07:29 Discharge Date 08/08/2021 15:31 Primary Care Provider DEANDRA LOPEZ NP-FAM Discharge Diagnosis: #Chronic constipation s/p partial colectomy with ileorectal anastomosis #Diabetes #Bipolar depression #Hypothyroidism Procedures SN - Proc - Procedure: Colectomy (08/04/21 17:36:41) Hospital Course Ms. Martinez is a 41-year-old female with chronic constipation, diabetes, bipolar depression, hypothyroidism. 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 Internal medicine was asked to admit postoperatively. She had some issues with nausea and abdominal pain and spasms. Lopes catheter was removed and patient was able to ambulate. Her diet was advanced and she was tolerating. Okay for discharge once cleared by surgery. Nasogastric tube discontinued. Started on clear liquid diet which was advanced to soft diet tolerated very well. Patient passing gas. Dr. Diaz recommend okay to discharge home and close follow-up with him Vital Signs SpO2: 94% Oxygen Settings (Last) Oxygen Therapy Mode: Room air (08/08/21 11:55:00) Oxygen Flow Rate: 0 Liter/Min (08/04/21 22:00:00) Physical Exam Chest clear to auscultation bilateral Discharge Disposition Home Discharge Follow Up HEATH DIAZ - Within 1 to 2 weeks DEANDRA LOPEZ NP-FAM - Within 1 to 2 weeks Discharge Medications (21) Active BuSpar 10 mg, Oral, [...] 40 mg = 1 Cap, Oral, Daily Percocet 5 mg-325 mg oral tablet 1 Tab, PRN, Oral, Q6H prazosin 8 mg, Oral, At Bedtime prazosin 2 mg, Oral, Daily Pristiq 100 mg, Oral, Daily Provigil 200 mg oral tablet 200 mg = 1 Tab, Oral, QAM Vascepa 1 Gm, Oral, QAM Vistaril 50 mg, Oral, TID Vitamin D3 50,000 units oral capsule 50,000 Int Units = 1 Cap, Oral, Weekly Vraylar 3 mg, Oral, Daily Xanax 1 mg oral tablet 1 mg = 1 Tab, Oral, TID Code Status Full code Condition on Discharge Stable to be discharged home Consulting Physicians LUL MURRAY MD-ANS Current Diet Order No qualifying data available. Pending Labs In Process SENDOUT REPORT [id number], [id number], RT - Routine, 08/04/21 16:56:00 EDT Pathology Tissue Request [id number], [id number], 08/04/21 16:56:00 EDT, Collected, RT - Routine, 08/05/21 9:15:01 EDT, MAYA DE LA TORRE, [employer]otech, Specimen Type: AP Specimen, Specimen Desc: A. SUBTOTAL COLON Time Spent on Discharge 45 minutes documented in this encounter Plan of Treatment Upcoming Encounters Date Type Department Care Team (Late st Contact Info) Description 07/17/2024 11:00 AM EDT Appointment [facility] Wound & Ostomy Therapy 1 [place] [address] 08/28/2024 9:15 AM EDT Office Visit [facility] Urology - [address] [place] [address] Chandrika Santana, COMMISSARY OFFICER [address] [place] [address] 04/17/2025 8:30 AM EDT Office Visit [facility] Cardiology - [place] [address] [place] [address] Tamara Sow PA-C [address] [place] [address] [address] [place] [address] documented as of this encounter Visit Diagnoses Not on filedocumented in this encounter Care Teams Information Systems Manager Relationship Specialty Start Date End Date Deandra Lopez, KRISTYN PCP - General Nurse Practitioner 04/18/22 06/03/24 Deandra Lopez, COMMISSARY OFFICER [address] [place] [address] PCP - General Nurse Practitioner 06/04/24 documented as of this encounter
--- OUTSIDE RECORDS SUMMARY | 2024-07-16 15:17 | XMS_ITS | Encounter Summary ---
Author Organization [facility] Address [address] [place] [address] Care Team Providers Care Storeroom Keeper Name Role Phone Deandra Lopez APRN Primary Care Provider +1- [phone] Deandra Lopez APRN Primary Care Provider +1- [phone] Encounter Details Date Type Department Care Team (Late st Contact Info) Description 08/08/2021 Transcribed Document [facility] [place] [facility] [address] ProviderElaine MD [address] [place], [place] [id number] Social History Tobacco Use Types Packs/Day Years [...] Conversion Note - Historical ProviderMD - 08/08/2021 11:49 AM CDT Patient Education Materials Follows: How to Prevent Constipation After Surgery Constipation [...] bowel movement. ??? Having hard, dry, or klswcn-dewf-yvknjx stools (feces). ??? Discomfort in the lower [...] as fried or sweet foods. These include tajik fries, hamburgers, cookies, and candy. ??? Take [...] you use the restroom. Medicines ??? Take kqto-vnw-iyzwodg and prescription medicines only as told by [...] have not had a bowel movement within 24?48 hours after using them. ??? You have [...] provider. Document Revised: 12/11/2019 Document Reviewed: 12/11/2019 [employer] Patient Education ? 2020 [employer] Minimally Invasive Total Colectomy, Care After [...] these instructions at home: Medicines ??? Take vxjm-aum-iapksqw and prescription medicines only as told by [...] and water are not available, use hand operator supply. ? Change your dressing as told by [...] Get up to take short walks every 1?2 hours. This is important to improve blood [...] provider. Document Revised: 01/01/2020 Document Reviewed: 01/01/2020 Elsevier Patient Education ? 2020 [employer] Electronically signed by Ganesh Higginbotham Conversion Professor Of Physical Education Kunner at 05/27/2022 4:44 PM CDT documented in this encounter Plan of Treatment Upcoming Encounters Date Type Department Care Team (Late st Contact Info) Description 07/17/2024 11:00 AM EDT Appointment [facility] Wound & Ostomy Therapy 1 [place] [address] 08/28/2024 9:15 AM EDT Office Visit [facility] Urology - [address] [place] [address] Chandrika Santana, SERVICE SUPERVISOR [address] [place] [address] 04/17/2025 8:30 AM EDT Office Visit [facility] Cardiology - [place] [address] [place] [address] Tamara Sow PA-C [address] [facility] [address] [place] [address] documented as of this encounter Visit Diagnoses Not on filedocumented in this encounter Care Teams Storeroom Keeper Relationship Specialty Start Date End Date Deandra Lopez APRN PCP - General Nurse Practitioner 04/18/22 06/03/24 Deandra Lopez, SERVICE SUPERVISOR [address] [place] [address] PCP - General Nurse Practitioner 06/04/24 documented as of this encounter
--- OUTSIDE RECORDS SUMMARY | 2024-07-16 15:17 | XMS_ITS | Encounter Summary ---
Author Organization [facility] In iatives Address [address] [place] [address] Care Team Providers Care Lead Refiner Name Role Phone Deandra Lopez APRN Primary Care Provider +1- [phone] Encounter Details Date Type Department Care Team (Latest Contact Info) Description 07/04/2024 Travel Social History Tobacco Use Types Packs/Day [...] Do you speak a language other than [place] at [facility]? No 05/22/2024 Do you want help with [...] Medical Center Wound & Ostomy Therapy 1 [place] [address] 08/28/2024 9:15 AM EDT Office Visit [facility] Urology - [address] [place] [address] Chandrika Santana, OIL AND GAS RECRUITER [address] [place] [address] 04/17/2025 8:30 AM EDT Office Visit [facility] Cardiology - [place] [address] [place] [address] Tamara Sow PA-C [address] [facility] [address] [place] [address] documented as of this encounter Visit Diagnoses Not on filedocumented in this encounter Care Teams Lead Refiner Relationship Specialty Start Date End Date Deandra Lopez, OIL AND GAS RECRUITER [address] [place] [address] PCP - General Nurse Practitioner 06/04/24 documented as of this encounter
--- OUTSIDE RECORDS SUMMARY | 2024-07-16 15:17 | XMS_ITS | Encounter Summary ---
Author Organization [facility] In [facility] Address [address] [place] [address] Care Team Providers Care Clinical Rehabilitation Specialist Name Role Phone Deandra Lopez APRN Primary Care Provider +1- [phone] Deandra Lopez APRN Primary Care Provider +1- [phone] Encounter Details Date Type Department Care Team (Late st Contact Info) Description 08/08/2021 Transcribed Document [facility] [place] [facility] [place] [address] ProviderElaine MD [address] [place] [address] Social History Tobacco Use Types Packs/Day [...] Conversion Note - Historical ProviderMD - 08/08/2021 6:38 AM CDT Patient: DEMETRA MARTINEZ Age: 41 Years Sex: Female : 1980 CSGA POST OP NOTE Subjective: Objective: Vitals Signs (last 24 hrs) Last Charted Minimum Maximum Temp 98 (AUG 08 06:26) 98 (AUG 07 21:16) 99.4 (AUG 08 02:06) Apical HR H 104 (AUG 07 22:13) H 104 (ADRIANA 02 22:13) H 105 (AUG 07 09:18) Mon HR 98 (AUG 08 06:25) 98 (AUG 08 06:25) 113 (AUG 07 21:16) Resp Rate 18 (AUG 08 06:25) 16 (AUG 08 02:06) 18 (AUG 07 21:16) SBP H 144 (AUG 08 06:25) 114 (AUG 08 02:06) H 144 (AUG 08 06:25) DBP H 94 (AUG 08 06:25) L 59 (AUG 08 02:06) H 94 (AUG 08 06:25) MAP 126 (AUG 08 06:25) 84 (AUG 08 02:06) 126 (AUG 08 06:25) SpO2 L 92 (AUG 08 06:25) L 89 (AUG 07 13:29) 94 (AUG 07 21:16) IV Fluids & Drains Last 24 Hours (7a-7a) Intake (1) Dextrose 5% with 0.45% NaCl and KCl 20 mEq/L 1,000 mL 900 mL Intake Total: 900mL Output (1) GI Tube Output 100 mL Output Total: 100mL Exam: Abdomen soft. Wounds clean and intact. Impression: S/P subtotal colectomy and ileorectal anastomosis. NG tube has been out for the past 24 hours and patient is tolerated p.o.'s. Crampy abdominal pain has resolved. She is also moved her bowels multiple times. Plan: If doing well after lunch may D/C home. Follow up with Dr. Diaz in the office in 1 week. May shower at home. Have sent a prescription of Percocet to the patient's pharmacy. Have reviewed signs and symptoms for which she should give me a call. documented in this encounter Plan of Treatment Upcoming Encounters Date Type Department Care Team (Late st Contact Info) Description 07/17/2024 11:00 AM EDT Appointment [facility] Wound & Ostomy Therapy 1 [place] [address] 08/28/2024 9:15 AM EDT Office Visit [facility] Urology - [address] [place] [address] Chandrika Santana APRN [address] [place] [address] 04/17/2025 8:30 AM EDT Office Visit [facility] Cardiology - [place] [address] [place] [address] Tamara Sow PA-C [address] [place] [address] documented as of this encounter Visit Diagnoses Not on filedocumented in this encounter Care Teams Clinical Rehabilitation Specialist Relationship Specialty Start Date End Date Deandra Lopez, KRISTYN PCP - General Nurse Practitioner 04/18/22 06/03/24 Deandra Lopez, ROOFING APPLICATOR [address] [place] [address] PCP - General Nurse Practitioner 06/04/24 documented as of this encounter
--- OUTSIDE RECORDS SUMMARY | 2024-07-16 15:17 | XMS_ITS | Encounter Summary ---
Author Organization [facility] In [facility]atives Address [address] [place] [address] Care Team Providers Care Secondary School Teacher Librarian Name Role Phone Deandra Lopez APRN Primary Care Provider +1- [phone] Reason for Referral * Consultation (Routine) - Closed Specialty Diagnoses / Procedures Referred By Contac t Referred To Contact Urology Diagnoses Bladder retention Dennis Diaz MD [address] [place] [address] Phone: tel: fax: [facility] Urology - [address] [facility] [address] [place] [address] Phone: tel: fax: Referral ID Status Reason Start Date Expiration Date V isits Requested Visits Authorized [id number] Closed Specialty Services Required 07/04/2024 07/04/2025 1 1 Encounter Details Date Type Department Care Team (Late st Contact Info) Description 07/04/2024 Outside Orders [facility] Urology - [address] [facility] [address] [place] [address] Dennis Diaz MD [address] [place], [place] [id number] Bladder retention (Primary Dx) Social History Tobacco Use Types [...] your living situation today? [facility] a [facility] to [facility] 05/22/2024 Think about the [...] Do you speak a language other than [place] at [facility]? No 05/22/2024 Do you want help [...] Info) Description 07/17/2024 11:00 AM EDT Appointment [facility] Wound & Ostomy Therapy [address] [place] [address] 08/28/2024 9:15 AM EDT Office Visit [facility] Urology - [address] [place] [phone] Chandrika Santana, TICK ERADICATOR [address] [place] [address] 04/17/2025 8:30 AM EDT Office Visit [facility] Cardiology - [place] [address] [place] [address] Tamara Sow PA-C [address] [facility] [address] [place] [address] Scheduled Referrals Name Type Priority Associated Diagnoses Order Schedule Ambulatory referral to Urology Outpatient Referral Routine Bladder retention Expected: 07/04/2024, Expires: 07/04/2025 documented as of this encounter Visit Diagnoses Diagnosis Bladder retention- Primary Unspecified retention of urine documented in this encounter Care Teams Secondary School Teacher Librarian Relationship Specialty Start Date End Date Deandra Lopez, TICK ERADICATOR [address] [place] [address] PCP - General Nurse Practitioner 06/04/24 documented as of this encounter
--- OUTSIDE RECORDS SUMMARY | 2024-07-16 15:17 | XMS_ITS | Encounter Summary ---
Author Organization [facility] Address [address] [place] [address] Care Team Providers Care Food Quality Technician Name Role Phone Deandra Lopez APRN Primary Care Provider +1- [phone] Deandra Lopez APRN Primary Care Provider +1- [phone] Encounter Details Date Type Department Care Team (Late st Contact Info) Description 08/08/2021 Transcribed Document [facility] [place] Medicine [facility] [place] [address] ProviderElaine MD [address], [place] [id number] Social History Tobacco Use Types Packs/Day Years [...] Historical ProviderMD - 08/08/2021 11:49 AM CDT Stroke/Warfarin Instructions Entered On: 08/08/2021 11:49 EDT Performed On: 08/08/2021 11:49 EDT by Nubia Loving, RAYSA Stroke/Warfarin Instructions Stroke/TIA Discharge Ins : N/A Warfarin Discharge Ins : N/A Nubia Loving RN - 08/08/2021 11:49 EDT Electronically signed by Anahy [facility] Conversion Cap Machine Operator Cerner at 05/27/2022 4:52 PM CDT documented in this encounter Plan of Treatment Upcoming Encounters Date Type Department Care Team (Late st Contact Info) Description 07/17/2024 11:00 AM EDT Appointment [facility] Wound & Ostomy Therapy [address] [place] [address] 08/28/2024 9:15 AM EDT Office Visit [facility] Urology - [address] [place] [address] Chandrika Santana, SNAP SHEARER [address] [place] [address] 04/17/2025 8:30 AM EDT Office Visit [facility] Cardiology - [place] [address] [place] [address] Tamara Sow PA-C [address] [facility] [address] [place] [address] documented as of this encounter Visit Diagnoses Not on filedocumented in this encounter Care Teams Food Quality Technician Relationship Specialty Start Date End Date Deandra Lopez, KRISTYN PCP - General Nurse Practitioner 04/18/22 06/03/24 Deandra Lopez, SNAP SHEARER [address] [place] [address] PCP - General Nurse Practitioner 06/04/24 documented as of this encounter
--- OUTSIDE RECORDS SUMMARY | 2024-07-16 15:18 | XMS_ITS | Encounter Summary ---
Author Organization [facility] Address [address] [place] [address] Care Team Providers Care Credit Risk Manager Name Role Phone Deandra Lopez APRN Primary Care Provider +1- [phone] Deandra Lopez APRN Primary Care Provider +1- [phone] Encounter Details Date Type Department Care Team (Late st Contact Info) Description 04/11/2018 Transcribed Document [facility] [place] Family Medicine [facility] [place] [address] ProviderElaine MD [address] [place] [id number] Social History Tobacco Use Types Packs/Day Years [...] Cerner Conversion Note - Historical ProviderMD - 04/11/2018 9:33 AM PAPER BALING MACHINE OPERATOR Nursing Discharge Summary Entered On: 04/11/2018 9:35 EST Performed On: 04/11/2018 9:33 EST by CHANDRIKA SUNG RN Discharge Documentation Patient Disposition, General : Discharge Discharge To : Home with ambulatory/outpatient follow-up Mode Of Departure, General Discharge : Ambulatory Accompanied By, Discharge : Significant other IV Discontinued : Yes Medications Given to Patient : Yes Personal Belongings With Patient : Yes Prescriptions Given to Patient : No Discharge Instructions Reviewed With, Opportunity For Questions Given : Patient, Significant other Teaching Method : Explanation, Printed materials Teaching Evaluation : Returns demonstration, Verbalizes understanding Worker's Compensation Paperwork Completed : CHANDRIKA Echeverria, RN - 04/11/2018 9:33 EST Electronically signed by Anahy, [facility] Conversion Mellowing Machine Operator Cerner at 05/27/2022 4:39 PM CDT documented in this encounter Plan of Treatment Upcoming Encounters Date Type Department Care Team (Late st Contact Info) Description 07/17/2024 11:00 AM EDT Appointment [facility] [place] Wound & Ostomy Therapy [address] [place] [address] 08/28/2024 9:15 AM EDT Office Visit [facility] Urology - [address] [place] [address] Chandrika Santana, CREDIT COUNSELOR [address] [place] [address] 04/17/2025 8:30 AM EDT Office Visit [facility] Cardiology - Center [address] [place] [address] Tamara Sow PA-C [address] [facility] [address] [place] [address] documented as of this encounter Visit Diagnoses Not on filedocumented in this encounter Care Teams Credit Risk Manager Relationship Specialty Start Date End Date Deandra Lopez APRN PCP - General Nurse Practitioner 04/18/22 06/03/24 Deandra Lopez, CREDIT COUNSELOR [address] [place] [address] PCP - General Nurse Practitioner 06/04/24 documented as of this encounter
--- OUTSIDE RECORDS SUMMARY | 2024-07-16 15:18 | XMS_ITS | Encounter Summary ---
Author Organization [facility] Address [address] [place] [address] Care Team Providers Care Reproductive Endocrinologist Name Role Phone Deandra Lopez APRN Primary Care Provider +1- [phone] Deandra Lopez APRN Primary Care Provider +1- [phone] Encounter Details Date Type Department Care Team (Late st Contact Info) Description 04/11/2018 Transcribed Document [facility] [place] [facility] [place] [address] ProviderElaine MD [address] [place] [address] Social History Tobacco Use Types Packs/Day [...] Conversion Note - Historical ProviderMD - 04/11/2018 9:37 AM SKIDDER LEVER OPERATOR [address] , [place] [address] Patient Copy Patient Information: Name: DEMETRA MARTINEZ Current Date: 04/11/2018 09:37:21 : 1980 Patient Address: [address] [facility] [address] Patient Attending Physician: FADIA MOORE MD-CAR Primary Care Provider: TERE ESPINOZA NP-TONIE Primary Care Provider Discharge Diagnosis: Weight on Admission: 240 lb, 0 oz Comment: Discharge Instructions: Activity after Discharge: Rest and relax today, No strenuous activities, Other: do not lift over one pound with your right arm for 2 days or 5 pounds total for 5 days Driving after Discharge: Other: do not drive for 24 hours after the procedure Showering/Bathing:Other: you may remove the dressing from your right arm tomorrow and then gently clean with soap and water daily Wound/Incision Care after Discharge: Keep operative site/wound site clean and dry, Other: remove the dressing from your right arm tomorrow and then gently clean with soap and water daily Immunizations Documented During Stay: No Immunizations Found Worker's Compensation Paperwork Completed: No Special Instructions: If bleeding, apply pressure as shown and call 911 Heart Failure Discharge Instructions (if any): Stroke Related Discharge Instructions (if any): Warfarin Related Discharge Instructions (if any): Final Medication List: Other Medications ALPRAZolam (Xanax 1 mg oral tablet) 1 Tablet(s) Oral Three Times A Day. asenapine (Saphris 10 mg sublingual tablet) 1 Tablet(s) SubLINgual Two Times A Day. atorvastatin (Lipitor 80 mg oral tablet) 1 Tablet(s) Oral At Bedtime. busPIRone (BuSpar) 10 Milligram(s) Oral Three Times A Day. cholecalciferol (Vitamin D3 50,000 units oral capsule) 1 Capsule(s) Oral Monday, . cyanocobalamin (Vitamin B-12) 2,500 Microgram(s) SubLINgual Every Day. esomeprazole (NexIUM 40 mg oral delayed release capsule) 1 Capsule(s) Oral Every Day. folic acid (folic acid 1 mg oral tablet) 1 Tablet(s) Oral Every Day. hydrOXYzine (Vistaril) 50 Milligram(s) Oral Three Times A Day. isosorbide mononitrate (Imdur) 60 Milligram(s) Oral Every Morning. lamoTRIgine (lamoTRIgine 100 mg oral tablet) 1 Tablet(s) Oral Two Times A Day. levothyroxine (levothyroxine 125 mcg (0.125 mg) oral tablet) 1 Tablet(s) Oral Every Day. linaclotide (Linzess 290 mcg oral capsule) 1 Capsule(s) Oral Every Day. magnesium oxide 400 Milligram(s) Oral Every Day. metFORMIN (metFORMIN 1000 mg oral tablet) 1 Tablet(s) Oral Two Times A Day. metoprolol (metoprolol extended release) 50 Milligram(s) Oral Every Day. oxybutynin (oxybutynin 5 mg oral tablet) 1 Tablet(s) Oral Two Times A Day. polyethylene glycol 3350 (MiraLax) 17 Gram(s) Oral Two Times A Day. prazosin 8 Milligram(s) Oral At Bedtime. varenicline (Chantix 1 mg oral tablet) 1 Tablet(s) Oral Two Times A Day. Patient Allergies: Sudafed; Imitrex; predniSONE; pseudoephedrine-triprolidine; oral steroids Medication Instructions: Take your medications faithfully. Do NOT skip [...] cramping, rapid heartbeat, difficulty sleeping, and nervousness. Patient education materials: Moderate Conscious Sedation, Adult, Care After These instructions provide you with information about caring for yourself after your procedure. Your health care provider may also give you more specific instructions. Your treatment has been planned according to current medical practices, but problems sometimes occur. Call your health care provider if you have any problems or questions after your procedure. What can I expect after the procedure? After your procedure, it is common: ??? To feel sleepy for several hours. ??? To feel clumsy and have poor balance for several hours. ??? To have poor judgment for several hours. ??? To vomit if you eat too soon. Follow these instructions at home: For at least 24 hours after the procedure: ??? Do not: ? Participate in activities where you could fall or become injured. ? Drive. ? Use heavy machinery. ? Drink alcohol. ? Take sleeping pills or medicines that cause drowsiness. ? Make important decisions or sign legal documents. ? Take care of children on your own. ??? Rest. Eating and drinking ??? Follow the diet recommended by your health care provider. ??? If you vomit: ? Drink water, juice, or soup when you can drink without vomiting. ? Make sure you have little or no nausea before eating solid foods. General instructions ??? Have a responsible adult stay with you until you are awake and alert. ??? Take euut-ujh-pnjydvt and prescription medicines only as told by your health care provider. ??? If you smoke, do not smoke without supervision. ??? Keep all follow-up visits as told by your health care provider. This is important. Contact a health care provider if: ??? You keep feeling nauseous or you keep vomiting. ??? You feel light-headed. ??? You develop a rash. ??? You have a fever. Get help right away if: ??? You have trouble breathing. This information is not intended to replace advice given to you by your health care provider. Make sure you discuss any questions you have with your health care provider. Document Released: 11/13/2013 Document Revised: 06/27/2016 Document Reviewed: 05/14/2016 Else[employer]id Interactive Patient Education ? 2017 [employer]. Angiogram, Care After Refer to this sheet in the next few weeks. These instructions provide you with information about caring for yourself after your procedure. Your health care provider may also give you more specific instructions. Your treatment has been planned according to current medical practices, but problems sometimes occur. Call your health care provider if you have any problems or questions after your procedure. What can I expect after the procedure? After your procedure, it is typical to have the following: ??? Bruising at the catheter insertion site that usually fades within 1?2 weeks. ??? Blood collecting in the tissue (hematoma) that may be painful to the touch. It should usually decrease in size and tenderness within 1?2 weeks. Follow these instructions at home: ??? Take medicines only as directed by your health care provider. ??? You may shower 24?48 hours after the procedure or as directed by your health care provider. Remove the bandage (dressing) and gently wash the site with plain soap and water. Pat the area dry with a clean towel. Do not rub the site, because this may cause bleeding. ??? Do nottake baths, swim, or use a hot tub until your health care provider approves. ??? Check your insertion site every day for redness, swelling, or drainage. ??? Do not apply powder or lotion to the site. ??? Do notlift over 10 lb (4.5 kg) for 5 days after your procedure or as directed by your health care provider. ??? Ask your health care provider when it is okay to: ? Return to work or school. ? Resume usual physical activities or sports. ? Resume sexual activity. ??? Do notdrive home if you are discharged the same day as the procedure. Have someone else drive you. ??? You may drive 24 hours after the procedure unless otherwise instructed by your health care provider. ??? Do notoperate machinery or power tools for 24 hours after the procedure or as directed by your health care provider. ??? If your procedure was done as an outpatient procedure, which means that you went home the same day as your procedure, a responsible adult should be with you for the first 24 hours after you arrive home. ??? Keep all follow-up visits as directed by your health care provider. This is important. Contact a health care provider if: ??? You have a fever. ??? You have chills. ??? You have increased bleeding from the catheter insertion site. Hold pressure on the site. Get help right away if: ??? You have unusual pain at the catheter insertion site. ??? You have redness, warmth, or swelling at the catheter insertion site. ??? You have drainage (other than a small amount of blood on the dressing) from the catheter insertion site. ??? The catheter insertion site is bleeding, and the bleeding does not stop after 30 minutes of holding steady pressure on the site. ??? The area near or just beyond the catheter insertion site becomes pale, cool, tingly, or numb. This information is not intended to replace advice given to you by your health care provider. Make sure you discuss any questions you have with your health care provider. Document Released: 08/11/2005 Document Revised: 06/30/2016 Document Reviewed: 06/26/2013 ElsePolyPid Interactive Patient Education ? 2017 [employer] Radial Site Care Introduction Refer to this sheet in the next few weeks. These instructions provide you with information about caring for yourself after your procedure. Your health care provider may also give you more specific instructions. Your treatment has been planned according to current medical practices, but problems sometimes occur. Call your health care provider if you have any problems or questions after your procedure. What can I expect after the procedure? After your procedure, it is typical to have the following: ??? Bruising at the radial site that usually fades within 1?2 weeks. ??? Blood collecting in the tissue (hematoma) that may be painful to the touch. It should usually decrease in size and tenderness within 1?2 weeks. Follow these instructions at home: ??? Take medicines only as directed by your health care provider. ??? You may shower 24?48 hours after the procedure or as directed by your health care provider. Remove the bandage (dressing) and gently wash the site with plain soap and water. Pat the area dry with a clean towel. Do not rub the site, because this may cause bleeding. ??? Do nottake baths, swim, or use a hot tub until your health care provider approves. ??? Check your insertion site every day for redness, swelling, or drainage. ??? Do notapply powder or lotion to the site. ??? Do notflex or bend the affected arm for 24 hours or as directed by your health care provider. ??? Do notpush or pull heavy objects with the affected arm for 24 hours or as directed by your health care provider. ??? Do notlift over 10 lb (4.5 kg) for 5 days after your procedure or as directed by your health care provider. ??? Ask your health care provider when it is okay to:? Return to work or school. ? Resume usual physical activities or sports. ? Resume sexual activity. ??? Do notdrive home if you are discharged the same day as the procedure. Have someone else drive you. ??? You may drive 24 hours after the procedure unless otherwise instructed by your health care provider. ??? Do notoperate machinery or power tools for 24 hours after the procedure. ??? If your procedure was done as an outpatient procedure, which means that you went home the same day as your procedure, a responsible adult should be with you for the first 24 hours after you arrive home. ??? Keep all follow-up visits as directed by your health care provider. This is important. Contact a health care provider if: ??? You have a fever. ??? You have chills. ??? You have increased bleeding from the radial site. Hold pressure on the site. Get help right away if: ??? You have unusual pain at the radial site. ??? You have redness, warmth, or swelling at the radial site. ??? You have drainage (other than a small amount of blood on the dressing) from the radial site. ??? The radial site is bleeding, and the bleeding does not stop after 30 minutes of holding steady pressure on the site. ??? Your arm or hand becomes pale, cool, tingly, or numb. This information is not intended to replace advice given to you by your health care provider. Make sure you discuss any questions you have with your health care provider. Document Released: 02/25/2011 Document Revised: 06/30/2016 Document Reviewed: 08/11/2014 ? 2017 Elsevier CIGARETTE SMOKING: The facts are clear, cigarette smoking will shorten your life. Smoking can cause many illnesses along the way. As a healthcare provider, we recommend that you stop smoking. Assistance with quitting is available by contacting 6-593-GACF-NOW. This is a free resource providing counseling, support, and referral. Or you may contact your personal physician. 4 WAYS TO GET AHEAD OF SEPSIS SEPSIS is a MEDICAL EMERGENCY. Time matters! Infections put you and your family at risk for a life-threatening condition called sepsis. Sepsis is the body???s extreme response to an infection. It is life-threatening, and without timely treatment, sepsis can rapidly lead to tissue damage, organ failure, and . Sepsis happens when an infection you already have???in your skin, lungs, urinary tract or somewhere else???triggers a chain reaction throughout your body. 1 [...] sepsis or if you have an infection that???s not getting better or is getting worse. To learn more about sepsis and how to prevent infections, visit www.cdc.gov/sepsis. STROKE is an EMERGENCY Every Minute Counts ACT F.A.S.T! FACE ?? Facial droop ?? Uneven smile ARM ?? Arm numbness ?? Arm weakness SPEECH ?? Slurred speech ?? Difficulty speaking or understanding TIME ?? Call 911 and get to the hospital immediately Have the ambulance go to the nearest stroke center. STROKE Risk Factors High blood pressure High cholesterol Heart Disease Diabetes Smoking Heavy alcohol use Physical inactivity and obesity Atrial Fibrillation (irregular heartbeat) Family history of stroke Reminder: Be sure to sign up for the [employer] patient portal, which gives you 29/08 access to your medical information ??? including these discharge instructions ??? using your computer, smartphone, or tablet. Just go to [employer] to get started. Questions? Call . [facility] would like to thank you for allowing us to assist you with your healthcare needs. JUAN Maravilla AMBER J, (or solar manufacturer's representative) have received the above patient education materials/instructions and have verbalized understanding: Patient Signature _ Date/Time Patient Sheet Metal Mechanic Signature (if needed) Date/Time Clinician/Hospital Sheet Metal Mechanic Signature (if needed) Date/Time documented in this encounter Plan of Treatment Upcoming Encounters Date Type Department Care Team (Late st Contact Info) Description 07/17/2024 11:00 AM EDT Appointment [facility] Wound & Ostomy Therapy [address] [place] [address] 08/28/2024 9:15 AM EDT Office Visit [facility] Urology - [address] [place] [address] Chandrika Santana, FORMING AND ASSEMBLING SUPERVISOR [address] [place] [address] 04/17/2025 8:30 AM EDT Office Visit [facility] Cardiology - [place] [address] [place] [address] Tamara Sow PA-C [address] [place] [address] documented as of this encounter Visit Diagnoses Not on filedocumented in this encounter Care Teams Reproductive Endocrinologist Relationship Specialty Start Date End Date Deandra Lopez APRN PCP - General Nurse Practitioner 04/18/22 06/03/24 Deandra Lopez, KRISTYN [address] [place] [address] PCP - General Nurse Practitioner 06/04/24 documented as of this encounter
--- OUTSIDE RECORDS SUMMARY | 2024-07-16 15:18 | XMS_ITS | Encounter Summary ---
Author Organization [facility] Address [address] [place] [address] Care Team Providers Care Product Development Technician Name Role Phone Deandra Lopez APRN Primary Care Provider +1- [phone] Deandra Lopez APRN Primary Care Provider +1- [phone] Encounter Details Date Type Department Care Team (Late st Contact Info) Description 08/21/2021 Transcribed Document [facility] [place] [facility] [place] [address] ProviderElaine MD [address] [place] [address] Social History Tobacco Use Types [...] Cerner Conversion Note - Historical ProviderMD - 08/21/2021 1:37 PM CDT UM Authorization Entered On: 08/21/2021 13:40 EDT Performed On: 08/21/2021 13:37 EDT by Nicki Muniz Rn-Utilization Review Primary Insurance Authorization Authorization and Policy Numbers : Insurance 1 Health Plan: [facility] Policy Number: [id number] Authorization Number: Insurance Primary Name : [facility] Policy Number: [id number] Authorization Status-Primary : Awaiting callback Authorized Service Begin Date-Primary : 08/20/2021 EDT Authorization Comments-Primary : ellen faxed per dhiraj. clinical faxed via [facility] Historical Authorization Comments-Primary : No Authorization Comments Found Nicki Muniz, Rn-Utilization Review - 08/21/2021 13:37 EDT Electronically signed by Anahy, [facility] Conversion Senior Functional Analyst Cerner at 05/27/2022 4:55 PM CDT documented in this encounter Plan of Treatment Upcoming Encounters Date Type Department Care Team (Late st Contact Info) Description 07/17/2024 11:00 AM EDT Appointment [facility] Wound & Ostomy Therapy [address] [place] [id number] 08/28/2024 9:15 AM EDT Office Visit [facility] Urology - [address] [place] [address] Chandrika Santana, SLOTTER OPERATOR HELPER [address] [place] [address] 04/17/2025 8:30 AM EDT Office Visit [facility] Cardiology - [place] [address] [place] [address] Tamara Sow PA-C [address] [facility] [address] [place] [address] documented as of this encounter Visit Diagnoses Not on filedocumented in this encounter Care Teams Product Development Technician Relationship Specialty Start Date End Date Deandra Lopez SLOTTER OPERATOR HELPER PCP - General Nurse Practitioner 04/18/22 06/03/24 Deandra Lopez, SLOTTER OPERATOR HELPER [address] [place] [address] PCP - General Nurse Practitioner 06/04/24 documented as of this encounter
--- OUTSIDE RECORDS SUMMARY | 2024-07-16 15:18 | XMS_ITS | Encounter Summary ---
Author Organization [facility] In iatives Address [address] [place] [address] Care Team Providers Care Blender / Cook Name Role Phone Deandra Lopez APRN Primary Care Provider [phone]- [phone] Deandra Lopez APRN Primary Care Provider [phone]- [phone] Encounter Details Date Type Department Care Team (Late st Contact Info) Description 07/27/2021 Transcribed Document [facility] [place] [facility] [place] [address] ProviderElaine MD [address] [place] [address] Social History Tobacco Use Types [...] Cerner Conversion Note - Historical ProviderMD - 07/27/2021 2:52 PM CDT PAT Adult Entered On: 07/27/2021 15:21 EDT Performed On: 07/27/2021 14:52 EDT by GENARO MACHADO, RN Vital Measurements Temperature Source : Temporal artery scanning Temperature, Fahrenheit : 97.4 Deg F Clinical Temperature, C : 36.3 Deg C Peripheral Pulse Rate : 71 bpm Respiratory Rate : 16 Breaths/Min Blood Pressure Location : Arm, right upper Systolic Blood Pressure : 114 mmHg Diastolic Blood Pressure : 66 mmHg Oxygen Saturation : 97 % Oxygen Therapy Mode : Room air TRENA ARROYO RN - 07/28/2021 10:56 EDT Pain Assessment Pain Assessment : Initial assessment Pain Scale Goal : 4 Pain Scale Used : 0-10 Scale TRENA ARROYO RN - 07/28/2021 10:56 EDT Height and Weight, Clinical Dosing Height Source : Measured Height Entry Format : [place] Height, Feet : 0 ft(Converted to: 0 cm, 0 Inch) Height, Inches : 64.75 Inch(Converted to: 5 ft 5 Inch, 164.46 cm) Clinical Height : 164.47 cm Weight Source : Standing scale Weight Entry Format : [place] Clinical Dosing Weight : 110 kg Weight, Pounds : 242 lb Body Surface Area (BSA) : 2.14 m2 Body Mass Index : 40.7 kg/m2 (>HHI) [place] Body Weight : 56 kg TRENA ARROYO RN - 07/28/2021 10:56 EDT Health Histories Smoking Status : 5-9 cigarettes (between 1/4 to 1/2 pack)/day in last 30 days Smokeless Tobacco Status : Never Desires Tobacco Cessation Medication : No Reason for No Tobacco Cessation Medication : Refuses FDA approved medications Implant/Device Type, Transitional Care Nurse and Model : spinal cord stimulator GENARO MACHADO RN - 07/27/2021 14:52 EDT Social History (As Of: 08/04/2021 11:15:58 EDT) Tobacco: 5-9 cigarettes (between 1/4 to [...] 07/27/2021 14:54:48 EDT by GENARO MACHADO RN) Infectious Disease History Does patient have symptoms of COVID-19? : No Tested for COVID19 in the past 14 days : No, Patient stated Does the Patient state known exposure to a COVID-19 positive case in the last 14 days? : No Does Patient want a COVID-19 Vaccine? : Yes TRENA ARROYO RN - 07/28/2021 10:56 EDT Infectious Disease Risk Screening Grid Cough < 2 wks of unknown origin : NO Cough > 2 weeks : NO Blood in Sputum : NO Fever or self-reported Fever : NO Rash of unknown origin : NO Headache : NO Stiff neck : NO Night Sweats : NO Unexplained Weight Loss : NO Diarrhea (3 episode per day) : NO TRENA ARROYO RN - 07/28/2021 10:56 EDT INF Disease TB Screening Calc : 0 TRENA ARROYO RN - 07/28/2021 10:56 EDT Patient Vaccinated for COVID-19 : Partially vaccinated or need booster Physical contact outside [place] in the last 30 days : No Hospitalized in Foreign Country : No Infectious Disease History : Chicken pox/Shingles, Other: fevers blisters Infectious Disease History Comment : denies prior + Covid INF Disease Recent Travel Calc : 0 GENARO MACHADO RN - 07/27/2021 14:52 EDT COVID19 PreProcedure Screening Date PreProcedure COVID-19 test known? : No Has patient been isolated since the test : No Exposed to COVID19 symptoms since test? : No CLAUDIA HAYDEN - 08/04/2021 11:14 EDT Is this an Emergent or Add on Procedure? : No GENARO MACHADO RN - 07/27/2021 14:52 EDT Anesthesia/Transfusion History Blood Transfusion Acceptable to Patient : Yes TRENA ARROYO RN - 07/28/2021 10:56 EDT Family History of Anesthesia Reaction : Prior transfusion without reaction Transfusion History Comment : following 2004 Transfusion History : Prior anesthesia without reaction Family History of Anesthesia Reaction : Other: Mother has trouble waking up from anesthesia GENARO MACHADO RN - 07/27/2021 14:52 EDT Functional Assessment Functional ADL Evaluation Index EBN Bathing : Independent (2) Dressing : Independent (2) Toileting : Independent (2) Transferring Bed or Chair : Independent (2) Continence : Independent (2) Feeding : Independent (2) GENARO MACHADO RN - 07/27/2021 14:52 EDT ADL Index Score : 12 GENARO MACHADO RN - 07/27/2021 14:52 EDT Advance Directive Advance Directive Type : Living will Copy Advance Directive Verified/on Chart : Yes Date Hospital Obtained Advance Directive : 07/28/2021 EDT TRENA ARROYO RN - 07/28/2021 10:56 EDT Patient has Advance Directive *Q : Yes, Advance Directive not with the patient GENARO MACHADO RN - 07/27/2021 14:52 EDT Spiritual/Cultural Needs Any Spiritual/Cultural Needs or Requests : Yes Spiritual/Cultural Needs Comment : prayer on DOS 08/04/2021 Spiritual/Cultural Needs Comment : prayer on DOS 08/04/2021 GENARO MACHADO RN - 07/27/2021 14:52 EDT [place] Suicide Severity Rating Scale (C-SSRS) CSSRS Past Month Wish to be : No CSSRS Past Month Suicidal Thoughts : No CSSRS Lifetime Suicide Behavior : No Suicide Severity Rating Score : 0 Suicide Severity Rating : No Additional Care Required at this time GENARO MACHADO RN - 07/27/2021 14:52 EDT Psychosocial History Do You Have a History of the Following? : Anxiety, Bipolar Disorder, Depression, Post Traumatic Stress Disorder Currently in Unsafe Situation : No GENARO MACHADO RN - 07/27/2021 14:52 EDT Teaching/Learning Assessment Barriers To Learning : None evident Individuals Taught : Patient Readiness to Learn : Cooperative Readiness to Learn : Explanation, Printed materials TRENA ARROYO RN - 07/28/2021 10:56 EDT Education Topics, Periop Preadmission Perioperative Education Grid Arrival Time/Place : Verbalizes understanding CHG Preoperative Bathing/Cloths : Verbalizes understanding Infection Control : Verbalizes understanding IV's : Verbalizes understanding NPO Status/Directions : Verbalizes understanding Pain Management : Verbalizes understanding Postoperative Care Preparations : Verbalizes understanding Preprocedure Preparations : Verbalizes understanding Preprocedure Tests/Labs : Verbalizes understanding Remove Body Piercings : Verbalizes understanding Responsible Adult : Verbalizes understanding Take/Hold Medications Pre-Procedure : Verbalizes understanding Other : Verbalizes understanding (Comment: chiquis [TRENA ARROYO RN - 07/28/2021 10:56 EDT] ) Responsible Adult Contact Information : karl Salesienstella, TRENA ARROYO RN - 07/28/2021 10:56 EDT General Info Arrived From : Home Mode of Arrival on Unit : Ambulatory Patient Arrival Date/Time : 08/04/2021 10:00 EDT Legal Guardian : Significant other Identified Medical Decision Maker : Lillie Guillermina Identified Medical Decision Maker Identified Medical Decision Maker Class : sig other Objects to Sharing Info w Family : No TRENA ARROYO RN - 07/28/2021 10:56 EDT Preferred Name : Demetra Support Person/Pt Rep Contact Information : [phone] Want Family/Rep/Phys Notified of Admit : GENARO Germain RN - 07/27/2021 14:52 EDT Emergency Contact #1 : Lillie MurphyTRENA Fontaine RN - 07/28/2021 10:56 EDT Emergency Contact #1 cell Emergency Contact #1 Relationship : boyfriend Emergency Contact #2 : - Emergency Contact #2 Phone Number : - Emergency Contact #2 Relationship : - Chief Complaint : 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 Information Obtained From : Patient Primary Language : Yemeni Preferred Communication Mode : Verbal Communication Barrier : None Pressure Testing Technician Needed : GENARO Germain RN - 07/27/2021 14:52 EDT [place] Scale [place] Sensory Perception : No impairment (Comment: numbness little fingers both hands [GENARO MACHADO RN - 07/27/2021 14:52 EDT] ) [place] Moisture : Rarely moist [place] Activity : Walks occasionally [place] Mobility : Slightly limited [place] Nutrition : Excellent [place] Friction and Shear : No apparent problem [place] Score : 21 GENARO MACHADO RN - 07/27/2021 14:52 EDT Sleep Apnea Risk Assmt BiPAP/CPAP Ordered for Home Use : Yes Hx of Obstructive Sleep Apnea Diagnosis : Yes BiPAP/CPAP Used at Home : Yes Age over 50 Years Old : No Gender Male : GENARO Germain RN - 07/27/2021 14:52 EDT Pain Scale Intensity : 0 TRENA ARROYO, RN - 07/28/2021 10:56 EDT Image 4 - Images currently included in the form version of this document have not been included in the text rendition version of the form. documented in this encounter Plan of Treatment Upcoming Encounters Date Type Department Care Team (Late st Contact Info) Description 07/17/2024 11:00 AM EDT Appointment [facility] Wound & Ostomy Therapy [address] [place] [address] 08/28/2024 9:15 AM EDT Office Visit [facility] Urology - [address] [place] [address] Chandrika Santana, FRUIT PEELER [address] [place] [address] 04/17/2025 8:30 AM EDT Office Visit [facility] Cardiology - [place] [address] [place] [address] Tamara Sow PA-C [address] [facility] [address] [place] [address] documented as of this encounter Visit Diagnoses Not on filedocumented in this encounter Care Teams Blender / Cook Relationship Specialty Start Date End Date Deandra Lopez APRN PCP - General Nurse Practitioner 04/18/22 06/03/24 Deandra Lopez, FRUIT PEELER [address] [place] [address] PCP - General Nurse Practitioner 06/04/24 documented as of this encounter
--- OUTSIDE RECORDS SUMMARY | 2024-07-16 15:18 | XMS_ITS | Encounter Summary ---
Author Organization [facility] Address [address] [place] [address] Care Team Providers Care Forestry Adviser Name Role Phone Deandra Lopez APRN Primary Care Provider [phone]- [phone] Deandra Lopez APRN Primary Care Provider +1- [phone] Encounter Details Date Type Department Care Team (Late st Contact Info) Description 04/11/2018 Transcribed Document [facility] [place] [facility] [place] [address] ProviderElaine MD [address] [place] [address] Social History Tobacco Use Types Packs/Day [...] Conversion Note - Historical ProviderMD - 04/11/2018 11:12 AM 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 [address] , [place] [address] Patient Copy Patient Information: Name: DEMETRA MARTINEZ Current Date: 04/11/2018 11:12:49 : 1980 Patient Address: [address] [facility] [address] Patient Attending Physician: FADIA MOORE MD-CAR Primary Care Provider: TERE ESPINOZA NP-FAM Primary Care Provider Discharge Diagnosis: Weight on Admission: 240 lb, 0 oz Comment: Follow-up Instructions: With: Address: When: SERGIO PATEL Within 1 month Discharge Instructions: Diet after Discharge: Heart healthy diet, Diabetic diet, Other: drink extra fluids for the next couple of days to flush dye from you Activity after Discharge: Rest and relax today, [...] bleeding, apply pressure as shown and call 911.. STOP YOUR METFORMIN for the next 48 hours, then restart as prescribed. Heart Failure Discharge Instructions (if any): Stroke [...] difficulty sleeping, and nervousness. Patient education materials: Steps to Quit Smoking Smoking tobacco can be harmful to your health and can affect almost every organ in your body. Smoking puts you, and those around you, at risk for developing many serious chronic diseases. Quitting smoking is difficult, but it is one of the best things that you can do for your health. It is never too late to quit. What are the benefits of quitting smoking? When you quit smoking, you lower your risk of developing serious diseases and conditions, such as: ??? Lung cancer or lung disease, such as COPD. ??? Heart disease. ??? Stroke. ??? Heart attack. ??? Infertility. ??? Osteoporosis and bone fractures. Additionally, symptoms such as coughing, wheezing, and shortness of breath may get better when you quit. You may also find that you get sick less often because your body is stronger at fighting off colds and infections. If you are , quitting smoking can help to reduce your chances of having a baby of low weight. How do I get ready to quit? When you decide to quit smoking, create a plan to make sure that you are successful. Before you quit: ??? Pick a date to quit. Set a date within the next two weeks to give you time to prepare. ??? Write down the reasons why you are quitting. Keep this list in places where you will see it often, such as on your bathroom mirror or in your car or wallet. ??? Identify the people, places, things, and activities that make you want to smoke (triggers) and avoid them. Make sure to take these actions: ? Throw away all cigarettes at home, at work, and in your car. ? Throw away smoking accessories, such as ashtrays and lighters. ? Clean your car and make sure to empty the ashtray. ? Clean your home, including curtains and carpets. ??? Tell your family, friends, and coworkers that you are quitting. Support from your loved ones can make quitting easier. ??? Talk with your health care provider about your options for quitting smoking. ??? Find out what treatment options are covered by your health insurance. What strategies can I use to quit smoking? Talk with your healthcare provider about different strategies to quit smoking. Some strategies include: ??? Quitting smoking altogether instead of gradually lessening how much you smoke over a period of time. Research shows that quitting ?cold turkey? is more successful than gradually quitting. ??? Attending in-person counseling to help you build problem-solving skills. You are more likely to have success in quitting if you attend several counseling sessions. Even short sessions of 10 minutes can be effective. ??? Finding resources and support systems that can help you to quit smoking and remain smoke-free after you quit. These resources are most helpful when you use them often. They can include: ? Online chats with a counselor. ? Telephone quitlines. ? Printed self-help materials. ? Support groups or group counseling. ? Text messaging programs. ? Mobile phone applications. ??? Taking medicines to help you quit smoking. (If you are or , talk with your health care provider first.) Some medicines contain nicotine and some do not. Both types of medicines help with cravings, but the medicines that include nicotine help to relieve withdrawal symptoms. Your health care provider may recommend: ? Nicotine patches, gum, or lozenges. ? Nicotine inhalers or sprays. ? Non-nicotine medicine that is taken by mouth. Talk with your health care provider about combining strategies, such as taking medicines while you are also receiving in-person counseling. Using these two strategies together makes you more likely to succeed in quitting than if you used either strategy on its own. If you are or , talk with your health care provider about finding counseling or other support strategies to quit smoking. Do not take medicine to help you quit smoking unless told to do so by your health care provider. What things can I do to make it easier to quit? Quitting smoking might feel overwhelming at first, but there is a lot that you can do to make it easier. Take these important actions: ??? Reach out to your family and friends and ask that they support and encourage you during this time. Call telephone quitlines, reach out to support groups, or work with a counselor for support. ??? Ask people who smoke to avoid smoking around you. ??? Avoid places that trigger you to smoke, such as bars, parties, or smoke-break areas at work. ??? Spend time around people who do not smoke. ??? Lessen stress in your life, because stress can be a smoking trigger for some people. To lessen stress, try: ? Exercising regularly. ? Deep-breathing exercises. ? Yoga. ? Meditating. ? Performing a body scan. This involves closing your eyes, scanning your body from head to toe, and noticing which parts of your body are particularly tense. Purposefully relax the muscles in those areas. ??? Download or purchase mobile phone or tablet apps (applications) that can help you stick to your quit plan by providing reminders, tips, and encouragement. There are many free apps, such as QuitGuide from the CDC (Centers for Disease Control and Prevention). You can find other support for quitting smoking (smoking cessation) through smokefree.gov and other websites. How will I feel when I quit smoking? Within the first 24 hours of quitting smoking, you may start to feel some withdrawal symptoms. These symptoms are usually most noticeable 2?3 days after quitting, but they usually do not last beyond 2?3 weeks. Changes or symptoms that you might experience include: ??? Mood swings. ??? Restlessness, anxiety, or irritation. ??? Difficulty concentrating. ??? Dizziness. ??? Strong cravings for sugary foods in addition to nicotine. ??? Mild weight gain. ??? Constipation. ??? Nausea. ??? Coughing or a sore throat. ??? Changes in how your medicines work in your body. ??? A depressed mood. ??? Difficulty sleeping (insomnia). After the first 2?3 weeks of quitting, you may start to notice more positive results, such as: ??? Improved sense of smell and taste. ??? Decreased coughing and sore throat. ??? Slower heart rate. ??? Lower blood pressure. ??? Clearer skin. ??? The ability to breathe more easily. ??? Fewer sick days. Quitting smoking is very challenging for most people. Do not get discouraged if you are not successful the first time. Some people need to make many attempts to quit before they achieve long-term success. Do your best to stick to your quit plan, and talk with your health care provider if you have any questions or concerns. This information is not intended to replace advice given to you by your health care provider. Make sure you discuss any questions you have with your health care provider. Document Released: 01/17/2002 Document Revised: 09/20/2016 Document Reviewed: 06/09/2015 [employer] Patient Education ? 2017 [employer] Moderate Conscious Sedation, Adult, Care After These [...] you are awake and alert. ??? Take uzyd-gqt-lvalahr and prescription medicines only as told by [...] 11/13/2013 Document Revised: 06/27/2016 Document Reviewed: 05/14/2016 [employer] Interactive Patient Education ? 2017 [employer] Angiogram, Care After Refer to this [...] 08/11/2005 Document Revised: 06/30/2016 Document Reviewed: 06/26/2013 [employer] Patient Education ? 2017 [employer]. Radial Site Care Introduction Refer to this [...] Assistance with quitting is available by contacting 6-638-YMKG-NOW. This is a free resource providing counseling, [...] Be sure to sign up for the [employer] patient portal, which gives you 29/08 access to your medical information ??? including these discharge instructions ??? using your computer, smartphone, or tablet. Just go to [employer] to get started. Questions? Call . [facility] would like to thank you for allowing us to assist you with your healthcare needs. JUAN Maravilla AMBER J, (or credit and collections representative) have received the above patient education materials/instructions and have verbalized understanding: Patient Signature _ Date/Time Patient Forming And Assembling Supervisor Signature (if needed) Date/Time Clinician/Hospital Forming And Assembling Supervisor Signature (if needed) Date/Time documented in this encounter Plan of Treatment Upcoming Encounters Date Type Department Care Team (Late st Contact Info) Description 07/17/2024 11:00 AM EDT Appointment [facility] Wound & Ostomy Therapy [address] [place] [address] 08/28/2024 9:15 AM EDT Office Visit [facility] Urology - [address] [place] [address] Chandrika Santana APRN [address] [place] [address] 04/17/2025 8:30 AM EDT Office Visit [facility] Cardiology - [place] [address] [place] [address] Tamara Sow PA-C [address] [place] [address] documented as of this encounter Visit Diagnoses Not on filedocumented in this encounter Care Teams Forestry Adviser Relationship Specialty Start Date End Date Deandra Lopez APRN PCP - General Nurse Practitioner 04/18/22 06/03/24 Deandra Lopez, BILLET CUTTER [address] [place] [address] PCP - General Nurse Practitioner 06/04/24 documented as of this encounter
--- OUTSIDE RECORDS SUMMARY | 2024-07-16 15:18 | XMS_ITS | Encounter Summary ---
Author Organization [facility] Address [address] [place] [address] Care Team Providers Care Signal Person Name Role Phone Deandra Lopez APRN Primary Care Provider +1- [phone] Deandra Lopez APRN Primary Care Provider +1- [phone] Encounter Details Date Type Department Care Team (Late st Contact Info) Description 04/11/2018 Transcribed Document [facility] Family Medicine [facility] [place] [address] ProviderElaine MD [address] [place] [address] Social History Tobacco Use Types [...] Conversion Note - Historical ProviderMD - 04/11/2018 6:29 AM GEOLOGIC TECHNICIAN Pre Procedure Adult Entered On: 04/11/2018 6:37 EST Performed On: 04/11/2018 6:29 EST by CHANDRIKA SUNG RN Height and Weight, Clinical Dosing Height Source : Stated Height Entry Format : [place] Height, Feet : 5 ft(Converted to: 152 cm, 60 Inch) Height, Inches : 5 Inch(Converted to: 0 ft 5 Inch, 12.70 cm) Clinical Height : 165.1 cm Weight Source : Standing scale Weight Entry Format : [place] Clinical [facility] Weight : 109.09 kg Weight, Pounds : 240 lb Body Surface Area (BSA) : 2.14 m2 Body Mass Index : 40 kg/m2 (HI) Bock Body Weight : 57 kg CHANDRIKA SUNG RN - 04/11/2018 6:29 EST Health Histories Smoking Status : 4 or less cigarettes(less than 1/4 pack)/day in last 30 days Smokeless Tobacco Status : Never Desires Tobacco Cessation Medication : No Reason for No Tobacco Cessation Medication : Refuses FDA approved medications CHANDRIKA SUNG RN - 04/11/2018 6:29 EST Social History (As Of: 04/11/2018 06:37:42 EST) Tobacco: 4 or less cigarettes(less than 1/4 pack)/day in last 30 days Smoking Status. Years of Use: 10. Packs/Tins Daily: 0.25. (Last Updated: 04/11/2018 06:30:33 EST by CHANDRIKA SUNG, RN) Alcohol: Alcohol Use History No. (Last Updated: 04/11/2018 06:30:37 EST by CHANDRIKA SUNG RN) Substance Abuse: Drug Use Hx: No. (Last Updated: 04/11/2018 06:30:41 EST by CHANDRIKA SUNG RN) Infectious Disease History Infectious Disease History : Chicken pox/Shingles Fever/Chills Last 48 Hours : No Travel To Regions with Travel Advisories : No Travel Outside [place] Within Last 30 Days : No Contact With Traveler to Advisory Region : No Tuberculosis Symptoms : None CHANDRIKA SUNG RN - 04/11/2018 6:29 EST Anesthesia/Transfusion History Family History of Anesthesia Reaction : Prior transfusion without reaction Blood Transfusion Acceptable to Patient : Yes Transfusion History : No prior anesthesia Family History of Anesthesia Reaction : Other: Mother has trouble waking up from anesthesia CHANDRIKA SUNG RN - 04/11/2018 6:29 EST Functional Assessment Living Situation : Home Patient Lives With : Significant other(s) Persons Assisting Patient at Home : Significant other(s) Current Daily Living Assistance : None Mobility Assistance Prior to Admission : Independent Current Home Treatments : Blood glucose monitoring, CPAP Professional Skilled Services : None CHANDRIKA SUNG RN - 04/11/2018 6:29 EST Psychosocial History Does Someone Depend on You for Care? : Yes Have Arrangements been Made? : Yes Do You Have a History of the Following? : Anxiety, Bipolar Disorder, Depression Currently in Unsafe Situation : No Restraining Order Against Another Person : No Tried to Harm Yourself in the Past? : No Thoughts of Harming/Killing Yourself : No CHANDRIKA SUNG RN - 04/11/2018 6:29 EST Advance Directive Patient has Advance Directive *Q : No, patient refuses Advance Directive information CHANDRIKA SUNG RN - 04/11/2018 6:29 EST Spiritual/Cultural Needs Significant Loss/Crisis in Past 3 Years : No Any Spiritual/Cultural Needs or Requests : CHANDRIKA Echeverria RN - 04/11/2018 6:29 EST Teaching/Learning Assessment Barriers To Learning : None evident Individuals Taught : Patient Readiness to Learn : Cooperative CHANDRIKA SUNG RN - 04/11/2018 6:29 EST Education Topics, Periop Preadmission Perioperative Education Grid IV's : Verbalizes understanding NPO Status/Directions : Verbalizes understanding Responsible Adult : Verbalizes understanding CHANDRIKA SUNG RN - 04/11/2018 6:29 EST General Info Arrived From : Home Mode of Arrival on Unit : Ambulatory Legal Guardian : Significant other Want Family/Rep/Phys Notified of Admit : No Emergency Contact #1 : Lillie Guillermina Emergency Contact #1 Emergency Contact #1 Relationship : boyfriend Emergency Contact #2 : none Emergency Contact #2 Phone Number : none Emergency Contact #2 Relationship : none Chief Complaint : Here for cardiac cath Information Obtained From : Patient Primary Language : Palestinian Preferred Communication Mode : Verbal Communication Barrier : None Objects to Sharing Info w Family : No CHANDRIKA SUNG RN - 04/11/2018 6:29 EST Vital Measurements Temperature Source : Temporal artery scanning Temperature Mode : Fahrenheit Temperature, Fahrenheit : 97.7 Deg F Clinical Temperature, C : 36.5 Deg C Pulse Method : Non-Invasive BP Device Peripheral Pulse Rate : 79 bpm Respiratory Rate : 12 Breaths/Min (LOW) Blood Pressure Location : Arm, right upper Blood Pressure Source : Non-Invasive BP Device Systolic Blood Pressure : 114 mmHg Diastolic Blood Pressure : 70 mmHg Oxygen Saturation : 97 % Oxygen Therapy Mode : Room air CHANDRIKA SUNG RN - 04/11/2018 6:29 EST Sleep Apnea Risk Assmt Hx of Obstructive Sleep Apnea Diagnosis : Yes BiPAP/CPAP Ordered for Home Use : Yes BiPAP/CPAP Used at Home : Yes BiPAP/CPAP Home Settings : n/a Home BiPAP/CPAP Device With Patient : No CHANDRIKA SUNG RN - 04/11/2018 6:29 EST Delonte Scale Delonte Sensory Perception : No impairment Delonte Moisture : Rarely moist Delonte Activity : Walks occasionally Delonte Mobility : Slightly limited Delonte Nutrition : Probably inadequate Delonte Friction and Shear : Problem Delonte Score : 17 CHANDRIKA SUNG RN - 04/11/2018 6:29 EST Oxygen Therapy Oxygen Therapy Mode : Room air, CPAP CHANDRIKA SUNG RN - 04/11/2018 6:29 EST Pain Assessment Pain Assessment : Initial assessment Pain Scale Used : 0-10 Scale Location : Chest Pain Location Comment : Intermittant chest pain daily x several months, CHANDRIKA SUNG RN - 04/11/2018 6:29 EST Fall Risk Scales ABCs Fall Injury Risk Identification : None RODRIGUEZ Hx Falls Immediate/Within 3 Months : No Rodriguez Secondary Diagnosis : No RODRIGUEZ Use of Ambulatory Aid : None RODRIGUEZ IV Therapy or IV Access : Yes Rodriguez Gait/Transferring : Normal, bedrest, immobile Rodriguez Mental Status : Oriented to own ability Rodriguez Fall Risk Score : 20 RODRIGUEZ Fall Scale Risk Level : 0-24 Low Risk [place]lin Fall Interventions : Adequate lighting, Hourly comfort/safety rounds, Non-slip footwear, Personal items within reach, Room free of clutter/spills, Upper side-rails up, Wheels locked, Wires/Cords secured CHANDRIKA SUNG RN - 04/11/2018 6:29 EST Valuables and Belongings Valuables and Belongings : Clothing, Jewelry, Personal devices, Personal items, No assistive devices, No respiratory devices, No medications Clothing : Common streetwear Clothing Disposition : Bedside Personal Device Disposition : With patient Jewelry : Earrings, Ring Jewelry Disposition : With patient Personal Devices : Dentures, upper Personal Items : Cell phone, Wallet, Other: debit card Personal Items Disposition : Other: boyfriend CHANDRIKA SUNG RN - 04/11/2018 6:29 EST Pain Scale Intensity : 4 RANJEETMOJGAN LottCallie Mike RN - 04/11/2018 6:29 EST Image 4 - Images currently included in the form version of this document have not been included in the text rendition version of the form. Lazaro Coma Lazaro Best Motor Response : Obey commands Lazaro Best Verbal Response : Oriented [place] Eye Opening Response : Spontaneous [place]ah Coma Score : 15 CHANDRIKA SUNG RN - 04/11/2018 6:29 EST Electronically signed by Anahy [facility] Conversion Cable Splicer Apprentice Cerner at 05/27/2022 4:37 PM CDT documented in this encounter Plan of Treatment Upcoming Encounters Date Type Department Care Team (Late st Contact Info) Description 07/17/2024 11:00 AM EDT Appointment [facility] Wound & Ostomy Therapy [address] [place] [address] 08/28/2024 9:15 AM EDT Office Visit [facility] Urology - [place] [facility] [address] [place] [address] Chandrika Santana, CHAIN CARRIER [address] [place] [address] 04/17/2025 8:30 AM EDT Office Visit [facility] Cardiology - [place] [address] [place] [address] Tamara Sow PA-C 227 [facility] [address] [place] [address] documented as of this encounter Visit Diagnoses Not on filedocumented in this encounter Care Teams Signal Person Relationship Specialty Start Date End Date Deandra Lopez APRN PCP - General Nurse Practitioner 04/18/22 06/03/24 Deandra Lopez, CHAIN CARRIER [address] [place] [address] PCP - General Nurse Practitioner 06/04/24 documented as of this encounter
--- OUTSIDE RECORDS SUMMARY | 2024-07-16 15:18 | XMS_ITS | Encounter Summary ---
Author Organization [facility] Address [address] [place] [address] Care Team Providers Care Cullet Crusher And Washer Name Role Phone Deandra Lopez APRN Primary Care Provider +1- [phone] Deandra Lopez APRN Primary Care Provider +1- [phone] Encounter Details Date Type Department Care Team (Late st Contact Info) Description 08/21/2021 Transcribed Document [facility] Family Medicine [facility] [place] [address] ProviderElaine MD [address] [place] [address] Social History Tobacco Use Types Packs/Day [...] Notes * Agata Conversion Note - Historical Provider, - 08/21/2021 11:00 AM CDT Consult Phone Call Documentation Entered On: 08/21/2021 12:49 EDT Performed On: 08/21/2021 11:00 EDT by Hal Servin Care Asst-Health Unit Coord Phone Call for Consults Consult Phone Call/Page Attempt : First call Consult Reason : intra-abdominal abscess Physician Requesting Consult : DEVIN NELSON, DO-INT Provider Service Notified Name : Infectious Disease Physician Covering for Consult : TERESA ALEXANDER MD-INF Date and Time Call Returned : 08/21/2021 12:49 EDT Hal Servin, Blown Film Extrusion Operator-Health Unit Coord - 08/21/2021 12:48 EDT documented in this encounter Plan of Treatment Upcoming Encounters Date Type Department Care Team (Late st Contact Info) Description 07/17/2024 11:00 AM EDT Appointment [facility] Wound & Ostomy Therapy [address] [place] [address] 08/28/2024 9:15 AM EDT Office Visit [facility] Urology - [address] [place] [address] Chandrika Santana, NEEDLE LOOM OPERATOR HELPER [address] [place] [address] 04/17/2025 8:30 AM EDT Office Visit [facility] Cardiology - [place] [address] [place] [address] Tamara Sow PA-C [address] [address] documented as of this encounter Visit Diagnoses Not on filedocumented in this encounter Care Teams Cullet Crusher And Washer Relationship Specialty Start Date End Date Deandra Lopez APRN PCP - General Nurse Practitioner 04/18/22 06/03/24 Deandra Lopez, NEEDLE LOOM OPERATOR HELPER [address] [place] [address] PCP - General Nurse Practitioner 06/04/24 documented as of this encounter
--- OUTSIDE RECORDS SUMMARY | 2024-07-16 15:18 | XMS_ITS | Encounter Summary ---
Author Organization [facility] In [facility] Address [address] [place] [address] Care Team Providers Care Artist Agent Name Role Phone Deandra Lopez APRN Primary Care Provider +1- [phone] Deandra Lopez APRN Primary Care Provider +1- [phone] Encounter Details Date Type Department Care Team (Late st Contact Info) Description 04/11/2018 Transcribed Document [facility] Family Medicine [facility] [place] [address] ProviderElaine MD [address] [place] [address] Social History Tobacco Use Types Packs/Day [...] Conversion Note - Historical ProviderMD - 04/11/2018 11:05 AM METAL CRAFTS TEACHER [address] , [place] [address] Patient Copy Patient Information: Name: DEMETRA MARTINEZ Current Date: 04/11/2018 11:05:13 : 1980 Patient Address: [address] [facility] [address] Patient Attending Physician: FADIA MOORE MD-CAR Primary [...] 01/17/2002 Document Revised: 09/20/2016 Document Reviewed: 06/09/2015 [employer] Interactive Patient Education ? 2017 [employer] Moderate Conscious Sedation, Adult, Care After [...] you are awake and alert. ??? Take vsxv-gei-zrlqbqz and prescription medicines only as told by [...] 11/13/2013 Document Revised: 06/27/2016 Document Reviewed: 05/14/2016 [employer] Interactive Patient Education ? 2017 [employer] Angiogram, Care After Refer to this [...] 08/11/2005 Document Revised: 06/30/2016 Document Reviewed: 06/26/2013 [employer] Interactive Patient Education ? 2017 [employer]. Radial Site Care Introduction Refer to this [...] Assistance with quitting is available by contacting 5-612-ZUKM-NOW. This is a free resource providing counseling, [...] Be sure to sign up for the [employer] patient portal, which gives you 29/08 access to your medical information ??? including these discharge instructions ??? using your computer, smartphone, or tablet. Just go to [employer] to get started. Questions? Call . [facility] would like to thank you for allowing us to assist you with your healthcare needs. JUAN Maravilla AMBER J, (or retail field representative) have received the above patient education materials/instructions and have verbalized understanding: Patient Signature _ Date/Time Patient Business Mail Entry Clerk Signature (if needed) Date/Time Clinician/Hospital Business Mail Entry Clerk Signature (if needed) Date/Time documented in this encounter Plan of Treatment Upcoming Encounters Date Type Department Care Team (Late st Contact Info) Description 07/17/2024 11:00 AM EDT Appointment [facility] Wound & Ostomy Therapy [address] [place] [address] 08/28/2024 9:15 AM EDT Office Visit [facility] Urology - [address] [place] [address] Chandrika Santana APRN [address] [place] [address] 04/17/2025 8:30 AM EDT Office Visit [facility] Cardiology - [place] [address] [place] [address] Tamara Sow PA-C [address] [place] [address] documented as of this encounter Visit Diagnoses Not on filedocumented in this encounter Care Teams Artist Agent Relationship Specialty Start Date End Date Deandra Lopez APRN PCP - General Nurse Practitioner 04/18/22 06/03/24 Deandra Lopez, DIRECTOR VACCINE [address] [place] [address] PCP - General Nurse Practitioner 06/04/24 documented as of this encounter
--- OUTSIDE RECORDS SUMMARY | 2024-07-16 15:18 | XMS_ITS | Encounter Summary ---
Author Organization [facility] Address [address] [place] [address] Care Team Providers Care Supervisor Respiratory Name Role Phone Deandra Lopez APRN Primary Care Provider +1- [phone] Deandra Lopez APRN Primary Care Provider +1- [phone] Encounter Details Date Type Department Care Team (Late st Contact Info) Description 08/21/2021 Transcribed Document [facility] Family Medicine [facility] [place] [address] ProviderElaine MD [address] [place] [phone] Social History Tobacco Use Types Packs/Day Years [...] Cerner Conversion Note - Historical Provider, - 08/21/2021 2:07 PM CDT Patient: DEMETRA MARTINEZ Age: 41 years Sex: Female : 1980 Associated Diagnoses: None Author: RENA RUSHING PA Pre-OP/Procedure Diagnosis: Abdominal fluid collections. Post-OP/Procedure Diagnosis: Same Procedure Performed: CT guided bilateral drain placements Procedural MD: Dr. Augustine Manager Sterile: Rena Rushing PA-C Sedation: Procedural sedation Findings: Technically successful CT guided bilateral drain placements Complications: None EBL: < 20 ml Specimen(s) Removed: 10mL of purulent fluid removed from both right and left fluid collections. Pathology is pending. Full report to follow. documented in this encounter Plan of Treatment Upcoming Encounters Date Type Department Care Team (Late st Contact Info) Description 07/17/2024 11:00 AM EDT Appointment [facility] Wound & Ostomy Therapy [address] [place] [address] 08/28/2024 9:15 AM EDT Office Visit [facility] Urology - [address] [place] [address] Chandrika Santana, GEM CARVER [address] [place] [address] 04/17/2025 8:30 AM EDT Office Visit [facility] Cardiology - [place] [address] [place] [address] Tamara Sow PA-C [address] [facility] [address] [place] [address] documented as of this encounter Visit Diagnoses Not on filedocumented in this encounter Care Teams Supervisor Respiratory Relationship Specialty Start Date End Date Deandra Lopez APRN PCP - General Nurse Practitioner 04/18/22 06/03/24 Deandra Lopez, GEM CARVER [address] [facility] [place] [address] PCP - General Nurse Practitioner 06/04/24 documented as of this encounter
--- OUTSIDE RECORDS SUMMARY | 2024-07-16 15:18 | XMS_ITS | Encounter Summary ---
Author Organization [facility] In [facility] Address [address] [place] [address] Care Team Providers Care Boilermaker Ship Name Role Phone Deandar Lopez APRN Primary Care Provider +1- [phone] Deandra Lopez APRN Primary Care Provider +1- [phone] Encounter Details Date Type Department Care Team (Late st Contact Info) Description 08/21/2021 Transcribed Document [facility] [place] [facility] [place] [address] ProviderElaine MD [address] [place] [phone] Social History Tobacco Use Types Packs/Day Years [...] Agata Conversion Note - Historical ProviderMD - 08/21/2021 1:28 PM CDT Event Note Entered On: 08/21/2021 13:31 EDT Performed On: 08/21/2021 13:28 EDT by NOA VILLATORO Event Note Event Date/Time : 08/21/2021 13:15 EDT Event Location : Other: ct scan room 1 Event Details : Nursing assessment additional narrative Description of Event : 475mls of purulent fluid was emptied from the first accordian drain that was placed on the right side of her abdomen. NAO VILLATORO - 08/21/2021 13:28 EDT Electronically signed by Ganesh Higginbotham Conversion Statement Distribution Clerk Agata at 05/27/2022 4:51 PM CDT documented in this encounter Plan of Treatment Upcoming Encounters Date Type Department Care Team (Late st Contact Info) Description 07/17/2024 11:00 AM EDT Appointment [facility] Wound & Ostomy Therapy [address] [place] [address] 08/28/2024 9:15 AM EDT Office Visit [facility] Urology - [address] [place] [address] Chandrika Santana, CHILDCARE TEACHER [address] [place] [address] 04/17/2025 8:30 AM EDT Office Visit [facility] Cardiology - [place] [address] [place] [address] Tamara Sow PA-C [address] [facility] [address] [place] [address] documented as of this encounter Visit Diagnoses Not on filedocumented in this encounter Care Teams Boilermaker Ship Relationship Specialty Start Date End Date Deandra Lopez APRN PCP - General Nurse Practitioner 04/18/22 06/03/24 Deandra Lopez, CHILDCARE TEACHER [address] [place] [address] PCP - General Nurse Practitioner 06/04/24 documented as of this encounter
--- OUTSIDE RECORDS SUMMARY | 2024-07-16 15:18 | XMS_ITS | Encounter Summary ---
Author Organization [facility] Address [address] [place] [address] Care Team Providers Care Industrial Design Intern Name Role Phone Deandra Lopez APRN Primary Care Provider +1- [phone] Deandra Lopez APRN Primary Care Provider +1- [phone] Encounter Details Date Type Department Care Team (Late st Contact Info) Description 08/21/2021 Transcribed Document [facility] [place] [place] [facility] [place] [address] ProviderElaine MD [address] [place] [phone] Social History Tobacco Use Types Packs/Day Years [...] Conversion Note - Historical ProviderMD - 08/21/2021 11:59 AM CDT Patient: DEMETRA MARTINEZ Age: 41 years Sex: Female : 1980 Associated Diagnoses: None Author: KRZYSZTOF RUSHING PA PRE PROCEDURE NOTE I have evaluated the patient prior to the procedure. ASA score: 2 Mallampati score: 2 ASA SCORE ASA 1: Healthy patients ASA 2 : Mild to moderate systemic disease caused by the surgical condition or by other pathological processes, and medically well controlled. ASA 3: Severe disease process which limits activity but is not incapacitating ASA 4: Severe incapacitating disease process that is a constant threat to life ASA 5: Moribund patient not expected to survive 24 hours with or without an operation ASA 6: Declared brain- patient whose organs are being removed for donor purposes Mallampati Score Class I: Soft palate, uvula, fauces, pillars visible. Class II: Soft palate, major part of uvula, fauces visible Class III: Soft palate, base of uvula visible Class IV: Only hard palate visible Electronically signed by Sean Higginbotham Conversion Nuclear Fuels Reclamation Engineer Cerner at 05/27/2022 4:56 PM CDT documented in this encounter Plan of Treatment Upcoming Encounters Date Type Department Care Team (Late st Contact Info) Description 07/17/2024 11:00 AM EDT Appointment [facility] Wound & Ostomy Therapy [address] [place] [address] 08/28/2024 9:15 AM EDT Office Visit [facility] Urology - [address] [place] [address] Chandrika Santana, SLICE PLUG CUTTER OPERATOR HELPER [address] [place] [address] 04/17/2025 8:30 AM EDT Office Visit [facility] Cardiology - [place] [address] [place] [address] Tamara Sow PA-C 227 [facility] [address] [place] [address] documented as of this encounter Visit Diagnoses Not on filedocumented in this encounter Care Teams Industrial Design Intern Relationship Specialty Start Date End Date Deandra Lopez APRN PCP - General Nurse Practitioner 04/18/22 06/03/24 Deandra Lopez, SLICE PLUG CUTTER OPERATOR HELPER [address] [place] [address] PCP - General Nurse Practitioner 06/04/24 documented as of this encounter
--- OUTSIDE RECORDS SUMMARY | 2024-07-16 15:18 | XMS_ITS | Encounter Summary ---
Author Organization [facility] Address [address] [place] [address] Care Team Providers Care Roastmaster Name Role Phone Deandra Lopez APRN Primary Care Provider +1- [phone] Deandra Lopez APRN Primary Care Provider +1- [phone] Encounter Details Date Type Department Care Team (Late st Contact Info) Description 08/21/2021 Transcribed Document [facility] [place] Family Medicine [facility] [place] [address] ProviderElaine MD [address] [place] [address] Social History Tobacco Use Types [...] Conversion Note - Historical ProviderMD - 08/21/2021 7:49 AM CDT Patient: DEMETRA MARTINEZ Age: 41 Years Sex: Female : 1980 Subjective Complaining of abdominal pain, not much has changed since her initial presentation to outside ED. Has been afebrile since she has been here, tachycardic. Potassium low at 2.9. No vomiting. Vital Signs T: 37.6 ??C TMIN: 36.8 ??C TMAX: 37.6 ??C HR: 115(Monitored) RR: 16 BP: 112/63 SpO2: 95% HT: 165.1 cm WT: 99 kg BMI: 36.3 Oxygen Settings (Last) Oxygen Therapy Mode: Nasal cannula (08/21/21 06:15:00) Oxygen Flow Rate: 2 Liter/Min (08/21/21 06:15:00) Intake & Output Totals Last 24 Hours (7a-7a) Input Total: 604 mL Output Total: 300 mL Balance: 304 mL Physical Exam General: Alert, obese, no acute distress Neurologic: Moves all 4 extremities spontaneously, oriented X3, no focal deficits appreciated Lungs: Clear to auscultation, non-labored respiration, no crackles, no wheeze Heart: Normal rate, regular rhythm, no murmur, no edema Abdomen: Soft, diffusely TTP, non-distended, hypoactive bowel sounds Musculoskeletal: No obvious deformity, no tenderness Skin: warm, dry, no rashes or lesions Psychiatric: Cooperative, appropriate mood and affect Assessment/Plan #Sepsis (POA) due to to intra-abdominal abscess Tachycardia, leukocytosis, elevated Pro-Sanju 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 Will need ID consultation for antibiotic recs. At d/c will likely need -antibiotics? Tentatively at d/c will be going to -home Expected d/c date -? VTE Prophylaxis - Medical Heparin 5,000 Units, [...] heparin, 5000 Units= 1 mL, SubCutaneous, Q8HInt hydrALAZINE, 10 mg= 0.5 mL, IV Push, Q6H, PRN insulin regular sliding scale, Scale A, SubCutaneous, Q6H labetalol, 10 mg= 2 mL, IV Push, Q6H, PRN lamoTRIgine, 100 mg= 1 Tab, Oral, BID levothyroxine, 125 mcg= 1 Tab, Oral, Daily Lipitor, 80 mg= 2 Tab, Oral, At Bedtime morphine, 2 mg= 1 mL, IV Push, Q4H, PRN Myrbetriq, 50 mg= 2 Tab, Oral, Daily NexIUM, 40 mg, Oral, Daily [place] 5 mg-325 mg oral tablet, 1 Tab, Oral, Q6H, PRN Normal Saline 1,000 mL, 1000 mL, IntraVENous ondansetron, 4 mg= 2 mL, IV Push, Q6H, PRN potassium chloride 10 mEq/50 mL intravenous solution, 10 mEq= 50 mL, IV Piggyback, Q1H prazosin, 2 mg= 2 Cap, Oral, Daily prazosin, 8 mg, Oral, At Bedtime Pristiq, 100 mg= 1 Tab, Oral, Daily Provigil, 200 mg= 1 Tab, Oral, QAM Vraylar, 3 mg= 2 Cap, Oral, Daily Xanax, 1 mg= 2 Tab, Oral, TID Zosyn + Sodium Chloride 0.9% intravenous solution 100 mL Lab Results Test Name Test Result Date/Time Sodium Level 133 mmol/L (Low) 08/21/2021 06:42 EDT Sodium Level 132 mmol/L (Low) 08/21/2021 04:00 EDT Potassium Level 2.9 mmol/L (Low) 08/21/2021 06:42 EDT Potassium Level 3.3 mmol/L (Low) 08/21/2021 04:00 EDT Chloride Level 97 mmol/L (Low) 08/21/2021 06:42 EDT Chloride Level 96 mmol/L (Low) 08/21/2021 04:00 EDT Carbon Dioxide Level 26 mmol/L 08/21/2021 06:42 EDT Carbon Dioxide Level 27 mmol/L 08/21/2021 04:00 EDT Anion Gap 13 08/21/2021 06:42 EDT Anion Gap 12 08/21/2021 04:00 EDT Glucose Level 127 mg/dL (High) 08/21/2021 06:42 EDT Glucose Level 134 mg/dL (High) 08/21/2021 04:00 EDT Blood Urea Nitrogen 4 mg/dL (Low) 08/21/2021 06:42 EDT Blood Urea Nitrogen 4 mg/dL (Low) 08/21/2021 04:00 EDT Creatinine Level 0.80 mg/dL 08/21/2021 06:42 EDT Creatinine Level 0.90 mg/dL 08/21/2021 04:00 EDT eGFR >60 mL/min/1.73m2 08/21/2021 06:42 EDT eGFR >60 mL/min/1.73m2 08/21/2021 04:00 EDT eGFR NonAfrican >60 mL/min/1.73m2 08/21/2021 06:42 EDT eGFR NonAfrican >60 mL/min/1.73m2 08/21/2021 04:00 EDT Bun/Creatinine 5.0 (Low) 08/21/2021 06:42 EDT Bun/Creatinine 4.4 (Low) 08/21/2021 04:00 EDT Calcium Level 8.0 mg/dL (Low) 08/21/2021 06:42 EDT Calcium Level 8.2 mg/dL (Low) 08/21/2021 04:00 EDT Protein Total 6.8 Gram/dL 08/21/2021 04:00 EDT Albumin Level 2.0 Gram/dL (Low) 08/21/2021 04:00 EDT Globulin 4.8 Gram/dL (High) 08/21/2021 04:00 EDT A/G Ratio 0.4 (Low) 08/21/2021 04:00 EDT Bilirubin Total 0.5 mg/dL 08/21/2021 04:00 EDT Alk Phos 223 Units/Liter (High) 08/21/2021 04:00 EDT AST 45 Units/Liter (High) 08/21/2021 04:00 EDT ALT 26 Units/Liter 08/21/2021 04:00 EDT Device Comment 1 Notified Nurse RBV 08/21/2021 06:25 EDT Glucose POC2 131 mg/dL (High) 08/21/2021 06:25 EDT WBC 11.7 K/uL (High) 08/21/2021 04:00 EDT RBC 3.28 Million/uL (Low) 08/21/2021 04:00 EDT Hgb 9.0 g/dL (Low) 08/21/2021 04:00 EDT Hct 27.3 % (Low) 08/21/2021 04:00 EDT MCV 83.2 fL 08/21/2021 04:00 EDT MCH 27.4 pg 08/21/2021 04:00 EDT MCHC 33.0 Gram/dL 08/21/2021 04:00 EDT Platelet Count 479 K/uL (High) 08/21/2021 04:00 EDT MPV 8.7 fL (Low) 08/21/2021 04:00 EDT RDW 12.1 % 08/21/2021 04:00 EDT Neut % 72.9 % (High) 08/21/2021 04:00 EDT Neut # 8.52 K/uL (High) 08/21/2021 04:00 EDT Lymph % 13.9 % (Low) 08/21/2021 04:00 EDT Lymph # 1.63 x10(3)/uL 08/21/2021 04:00 EDT Barry % 9.7 % (High) 08/21/2021 04:00 EDT Barry # 1.14 K/uL (High) 08/21/2021 04:00 EDT Eos % 0.3 % 08/21/2021 04:00 EDT Eos # 0.04 x10(3)/uL 08/21/2021 04:00 EDT Baso % 0.6 % 08/21/2021 04:00 EDT Baso # 0.07 x10(3)/uL 08/21/2021 04:00 EDT nRBC 0.030 (High) 08/21/2021 04:00 EDT RBC Morphology Normal 08/21/2021 04:[address] Estimate Adequate 08/21/2021 04:00 EDT Slide Review Technologist 08/21/2021 04:00 EDT IG# 0.31 x10(3)/uL (High) 08/21/2021 04:00 EDT IG% 2.60 % (High) 08/21/2021 04:00 EDT Procalcitonin 0.95 ng/mL 08/21/2021 04:00 EDT Electronically signed by Ganesh Higginbotham Conversion Florist Supplies Salesperson Cerner at 05/27/2022 4:47 PM CDT documented in this encounter Plan of Treatment Upcoming Encounters Date Type Department Care Team (Late st Contact Info) Description 07/17/2024 11:00 AM EDT Appointment [facility] Wound & Ostomy Therapy [address] [place] [address] 08/28/2024 9:15 AM EDT Office Visit [facility] Urology - [address] [place] [address] Chandrika Santana, BOW MACHINE OPERATOR [address] [place] [address] 04/17/2025 8:30 AM EDT Office Visit [facility] Cardiology - [place] [address] [place] [address] Tamara Sow PA-C [address] [facility] [address] [place] [address] documented as of this encounter Visit Diagnoses Not on filedocumented in this encounter Care Teams Roastmaster Relationship Specialty Start Date End Date Deandra Lopez, KRISTYN PCP - General Nurse Practitioner 04/18/22 06/03/24 Deandra Lopez, BOW MACHINE OPERATOR [address] [place] [address] PCP - General Nurse Practitioner 06/04/24 documented as of this encounter
--- OUTSIDE RECORDS SUMMARY | 2024-07-16 15:18 | XMS_ITS | Encounter Summary ---
Author Organization [facility] Address [address] [place] [address] Care Team Providers Care Rn Clinical Documentation Name Role Phone Deandra Lopez APRN Primary Care Provider +1- [phone] Deandra Lopez APRN Primary Care Provider +1- [phone] Encounter Details Date Type Department Care Team (Late st Contact Info) Description 08/21/2021 Transcribed Document [facility] Family Medicine [facility] [place] [address] ProviderElaine MD [address] [place] [id number] Social History Tobacco Use Types Packs/Day Years [...] Conversion Note - Historical ProviderMD - 08/21/2021 10:06 AM CDT Patient: DEMETRA MARTINEZ Age: 41 Years Sex: Female : 1980 Reason for Consultation Intra-abdominal abscess History of Present Illness Pleasant 41-year-old female well-known to me for history of colonic inertia. 2 weeks ago underwent a subtotal colectomy and ileorectal anastomosis. She had done well initially and was discharged from the hospital. She now came back to see me in the office yesterday and was noted to have a low-grade temperature at home and even a temperature up to 102. I sent her for a CT scan and laboratory evaluation. Her white count was 13,000. Her other labs were unremarkable. I ordered a CT scan of the abdomen pelvis which was done last night at [facility]. I have spoken with the physician at the outside hospital and see that the patient has a fairly large loculated abscess in the abdomen which appears to be an easy stick for interventional radiology. Patient's appetite has been poor. She continues to pass gas and stool per rectum. She has been up and walking. She does have some tachycardia. Review of Systems 12 point review of systems is otherwise unremarkable. Vital Signs T: 37.6 ??C TMIN: 36.8 ??C TMAX: 37.6 ??C HR: 115(Monitored) RR: 16 BP: 112/63 SpO2: 95% HT: 165.1 cm WT: 99 kg BMI: 36.3 Oxygen Settings (Last) Oxygen Therapy Mode: Nasal cannula (08/21/21 06:15:00) Oxygen Flow Rate: 2 Liter/Min (08/21/21 06:15:00) Physical Exam Patient is awake, alert, oriented x3. Lying in bed and in no acute discomfort. HEENT examination normal. Lungs are clear to auscultation bilaterally. Heart: Tachycardic, regular rhythm. Extremities are without cyanosis clubbing or edema. Abdomen is soft tender to palpation throughout with mild distention. Well-healed midline incision. Perianal and rectal examination deferred. Assessment/Plan Impression: Patient is status post subtotal colectomy and ileorectal anastomosis for colonic inertia. Note should be made that patient did not have a bowel prep for her surgery as she had an inability to tolerate the bowel prep or move stool through her colon. For this reason her colon surgery was done unprepped. This puts her at increased risk for development of the intra-abdominal abscess that she is developed. I think she be a good candidate for interventional radiology drainage of this. I have spoken with the patient about this and spoken with interventional radiology. We will try to make arrangements for this to happen today. She will need to continue with antibiotics. We will see how she does and she may be able to go home in the next day or 2. 1. Intra-abdominal abscess 2. Status post colectomy 3. Diabetes mellitus type II 4. Irritable bowel syndrome 5. Hyponatremia VTE Prophylaxis - Medical Heparin 5,000 Units, SubCutaneous, Inj, Q8HInt, Routine, Start 08/21/21 4:00:00 EDT, 08/21/21 3:54:00 EDT (SHELLIE CANALES) Sequential Compression Device Start: 08/21/21 3:24:00 EDT, Bilateral, Length: Knee High, While patient is in bed, Continuous Order (SHELLIE CANALES) Provider Information Primary Care Physician - TAMARA, NOT LISTED Attending Physician - SHELLIE CANALES MD Admitting Physician - DEVIN NELSON DO-INT Consulting Physician - HEATH ROBLEDO MD-PRO Referring Physician - TAMARA, UNKNOWN Problem List/Past Medical History Ongoing Angina Anxiety / depression / Bipolar / PTSD Back pain Bladder spasms Cardiac arrhythmia Chronic idiopathic constipation Diabetes mellitus type II Fast heart beat GERD - Gastro-esophageal reflux disease Hyperlipidemia Irritable bowel syndrome Narcolepsy BETTY (obstructive sleep apnea) Thyroid disease Historical Hemorrhoids Migraine Procedure/Surgical History RESECTION OF SIGMOID COLON, OPEN APPROACH (08/05/2021), Back surgery, C-sectionx 2, colonoscopies / EGD, gallbladder, Partial hysterectomy, placement of spinal cord stimulator, removal of both ovaries, tubal, uterine ablation. Medications Inpatient acetaminophen, 650 mg= 2 Tab, Oral, Q6H, PRN Dextrose 50% injection, 25 Gram= 50 mL, IV Push, Q15Min, PRN Dextrose 50% injection, 25 Gram= 50 mL, IV Push, Q15Min, PRN Dextrose 50% injection, 25 Gram= 50 mL, IV Push, Q15Min, PRN Dextrose 50% injection, 12.5 Gram= 25 mL, IV Push, Q15Min, PRN glucagon, 1 mg= 1 mL, IntraMuscular, Q15Min, [...] mg= 2 mL, IV Push, Q6H, PRN morphine, 2 mg= 1 mL, IV Push, Q4H, PRN [place] 5 mg-325 mg oral tablet, 1 Tab, Oral, Q6H, PRN Normal Saline 1,000 mL, 1000 mL, IntraVENous ondansetron, 4 mg= 2 mL, IV Push, Q6H, PRN potassium chloride 10 mEq/50 mL intravenous solution, 10 mEq= 50 mL, IV Piggyback, Q1H Zosyn + Sodium Chloride 0.9% intravenous solution 100 mL Home BuSpar, 10 mg, Oral, TID estradiol, 2 mg, Oral, Daily Imdur, 30 mg, Oral, QAM lamoTRIgine 100 mg oral tablet, 100 mg= 1 Tab, Oral, BID levothyroxine 125 mcg (0.125 mg) oral tablet, 125 mcg= 1 Tab, Oral, Daily Lipitor 80 mg oral tablet, 80 mg= 1 Tab, Oral, At Bedtime Melatonin, 3 mg, Oral, At Bedtime, Home Med: Stopped taking for procedure metFORMIN, 500 mg, Oral, Daily Metoprolol Tartrate, 75 mg, Oral, BID Myrbetriq, 50 mg, Oral, Daily NexIUM 40 mg oral delayed release capsule, 40 mg= 1 Cap, Oral, Daily prazosin, 2 mg, Oral, Daily prazosin, 8 mg, Oral, At Bedtime Pristiq, 100 mg, Oral, Daily Provigil 200 mg oral tablet, 200 mg= 1 Tab, Oral, QAM Vascepa, 1 Gm, Oral, QAM, Home Med: Stopped taking w/o MD advice Vistaril, 50 mg, Oral, TID Vitamin D3 50,000 units oral capsule, 18538 Int Units= 1 Cap, Oral, Weekly Vraylar, 3 mg, Oral, Daily Xanax 1 mg oral tablet, 1 mg= 1 Tab, Oral, TID Allergies Imitrex (rapid [...] Packs/Tins Daily: 0.3. Last Used: July 2021. Lab Results Test Name Test Result Date/Time [...] EDT Procalcitonin 0.95 ng/mL 08/21/2021 04:00 EDT documented in this encounter Plan of Treatment Upcoming Encounters Date Type Department Care Team (Late st Contact Info) Description 07/17/2024 11:00 AM EDT Appointment [facility] Wound & Ostomy Therapy [address] [place] [address] 08/28/2024 9:15 AM EDT Office Visit [facility] Urology - [address] [place] [address] Chandrika Santana, EXPLOSIVE SPECIALIST [address] [place] [address] 04/17/2025 8:30 AM EDT Office Visit [facility] Cardiology - [place] [address] [place] [address] Tamara Sow PA-C [address] [place] [address] documented as of this encounter Visit Diagnoses Not on filedocumented in this encounter Care Teams Rn Clinical Documentation Relationship Specialty Start Date End Date Deandra Lopez APRN PCP - General Nurse Practitioner 04/18/22 06/03/24 Deandra Lopez, EXPLOSIVE SPECIALIST [address] [place] [address] PCP - General Nurse Practitioner 06/04/24 documented as of this encounter
--- OUTSIDE RECORDS SUMMARY | 2024-07-16 15:18 | XMS_ITS | Encounter Summary ---
Author Organization [facility] Address [address] [place] [address] Care Team Providers Care Office Technician Name Role Phone Deandra Lopez APRN Primary Care Provider +1- [phone] Deandra Lopez APRN Primary Care Provider +1- [phone] Encounter Details Date Type Department Care Team (Late st Contact Info) Description 04/11/2018 Transcribed Document [facility] [place] [facility] [place] [address] ProviderElaine MD [address] [place] [address] Social History Tobacco Use Types Packs/Day [...] Conversion Note - Historical ProviderMD - 04/11/2018 10:02 AM EMPLOYMENT COORDINATOR [address] , [place] [address] Patient Copy Patient Information: Name: DEMETRA MARTINEZ Current Date: 04/11/2018 10:02:16 : 1980 Patient Address: [address] [facility] [address] Patient Attending Physician: FADIA MOORE MD-CAR Primary Care Provider: TERE ESPINOZA NP-FAM Primary Care Provider Discharge Diagnosis: Weight on Admission: 240 lb, 0 oz Comment: Discharge Instructions: Diet after Discharge: Heart healthy [...] 01/17/2002 Document Revised: 09/20/2016 Document Reviewed: 06/09/2015 [employer] Interactive Patient Education ? 2017 [employer] Moderate Conscious Sedation, Adult, Care After [...] you are awake and alert. ??? Take [id number] and prescription medicines only as told by [...] 11/13/2013 Document Revised: 06/27/2016 Document Reviewed: 05/14/2016 [employer] Interactive Patient Education ? 2017 [employer] Angiogram, Care After Refer to this [...] 08/11/2005 Document Revised: 06/30/2016 Document Reviewed: 06/26/2013 [employer] Interactive Patient Education ? 2017 [employer] Radial Site Care Introduction Refer to [...] Assistance with quitting is available by contacting 5-786-XTBTNOW. This is a free resource providing counseling, [...] Be sure to sign up for the [employer] patient portal, which gives you 29/08 access to your medical information ??? including these discharge instructions ??? using your computer, smartphone, or tablet. Just go to [employer] to get started. Questions? Call . [facility] would like to thank you for allowing us to assist you with your healthcare needs. JUAN Maravilla AMBER J, (or corporate representative) have received the above patient education materials/instructions and have verbalized understanding: Patient Signature _ Date/Time Patient Perfume Maker Signature (if needed) Date/Time Clinician/Hospital Perfume Maker Signature (if needed) Date/Time documented in this encounter Plan of Treatment Upcoming Encounters Date Type Department Care Team (Late st Contact Info) Description 07/17/2024 11:[address] [facility] Wound & Ostomy Therapy [address] [place] [address] 08/28/2024 9:15 AM EDT Office Visit [facility] Urology - [address] [place] [address] Chandrika Santana, SALES UTILITY REPRESENTATIVE [address] [place] [address] 04/17/2025 8:30 AM EDT Office Visit [facility] Cardiology - [place] [address] [place] [address] Tamara Sow PA-C [address] [place] [address] documented as of this encounter Visit Diagnoses Not on filedocumented in this encounter Care Teams Office Technician Relationship Specialty Start Date End Date Deandra Lopez APRN PCP - General Nurse Practitioner 04/18/22 06/03/24 Deandra Lopez, SALES UTILITY REPRESENTATIVE [address] [place] [address] PCP - General Nurse Practitioner 06/04/24 documented as of this encounter
--- OUTSIDE RECORDS SUMMARY | 2024-07-16 15:18 | XMS_ITS | Encounter Summary ---
Author Organization [facility] Address [address] [place] [address] Care Team Providers Care Die Cleaner Name Role Phone Deandra Lopez APRN Primary Care Provider +1- [phone] Deandra Lopez APRN Primary Care Provider +1- [phone] Encounter Details Date Type Department Care Team (Late st Contact Info) Description 04/11/2018 Transcribed Document [facility] [place] [facility] [place] [address] ProviderElaine MD [address] [place], [place] [id number] Social History Tobacco Use Types Packs/Day Years [...] Notes * Cerner Conversion Note - Elaine Puri MD - 04/11/2018 11:33 AM MEDICAL APPLIANCE MAKER Patient Education Materials Follows: Moderate Conscious Sedation, Adult, Care After These [...] you are awake and alert. ??? Take ddpn-jmd-zfacyej and prescription medicines only as told by [...] 11/13/2013 Document Revised: 06/27/2016 Document Reviewed: 05/14/2016 [employer] Interactive Patient Education ? 2017 [employer]. Pulmonary Medicine Steps to Quit Smoking Smoking tobacco can [...] support for quitting smoking (smoking cessation) through [employer] and other websites. How will I feel [...] 01/17/2002 Document Revised: 09/20/2016 Document Reviewed: 06/09/2015 [employer] Interactive Patient Education ? 2017 [employer] Radial Site Care Introduction Refer to [...] 06/30/2016 Document Reviewed: 08/11/2014 ? 2017 Elsevier [employer]iology Angiogram, Care After Refer to this sheet [...] 08/11/2005 Document Revised: 06/30/2016 Document Reviewed: 06/26/2013 Elsevier Interactive Patient Education ? 2017 [employer] Inc. Electronically signed by Ganesh Higginbotham Conversion Director Case Management Cerner at 05/27/2022 4:48 PM CDT documented in this encounter Plan of Treatment Upcoming Encounters Date Type Department Care Team (Late st Contact Info) Description 07/17/2024 11:00 AM EDT Appointment [facility] Wound & Ostomy Therapy [address] [place] [phone] 08/28/2024 9:15 AM EDT Office Visit [facility] Urology - [address] [place] [address] Chandrika Santana, NATURE PHOTOGRAPHER [address] [place] [address] 04/17/2025 8:30 AM EDT Office Visit [facility] Cardiology - [place] [address] [place] [address] Tamara Sow PA-C [address] [facility] [address] [place] [address] documented as of this encounter Visit Diagnoses Not on filedocumented in this encounter Care Teams Die Cleaner Relationship Specialty Start Date End Date Deandra Lopez APRN PCP - General Nurse Practitioner 04/18/22 06/03/24 Deandra Lopez, NATURE PHOTOGRAPHER [address] [place] [address] PCP - General Nurse Practitioner 06/04/24 documented as of this encounter
--- OUTSIDE RECORDS SUMMARY | 2024-07-16 15:18 | XMS_ITS | Encounter Summary ---
Author Organization [facility] In iatives Address [address] [place] [address] Care Team Providers Care Brim Plater Name Role Phone Deandra Lopez APRN Primary Care Provider +1- [phone] Deandra Lopez APRN Primary Care Provider +1- [phone] Encounter Details Date Type Department Care Team (Late st Contact Info) Description 04/11/2018 Transcribed Document [facility] Family Medicine [facility] [place] [address] ProviderElaine MD [address] [place] [address] Social History Tobacco Use Types Packs/Day [...] Conversion Note - Historical ProviderMD - 04/11/2018 11:33 AM MACHINE COIL ASSEMBLER [address] , [place] [address] Patient Copy Patient Information: Name: DEMETRA MARTINEZ Current Date: 04/11/2018 11:33:20 : 1980 Patient Address: [address] [facility] [address] Patient Attending Physician: FADIA MOORE MD-CAR Primary Care Provider: TERE ESPINOZA NP-FAM Primary Care Provider Discharge Diagnosis: Weight on Admission: 240 lb, 0 oz Comment: Follow-up Instructions: With: Address: When: FADIA MOORE [address] [place] [address] [facility] (1) 10:00 AM Comments: Follow up with Dr. Moore in [facility] May 15, 2018 at 10:00 am....notify sooner if any problems With: Address: When: SERGIO PATEL Within 1 [...] 01/17/2002 Document Revised: 09/20/2016 Document Reviewed: 06/09/2015 [employer] Patient Education ? 2017 [employer] Moderate Conscious Sedation, Adult, Care After [...] you are awake and alert. ??? Take rwlu-ogn-lwmhckn and prescription medicines only as told by [...] 11/13/2013 Document Revised: 06/27/2016 Document Reviewed: 05/14/2016 [employer] Interactive Patient Education ? 2017 [employer] Angiogram, Care After Refer to this [...] 08/11/2005 Document Revised: 06/30/2016 Document Reviewed: 06/26/2013 [employer] Interactive Patient Education ? 2017 [employer] Radial Site Care Introduction Refer to [...] Revised: 06/30/2016 Document Reviewed: 08/11/2014 ? 2017 [employer] CIGARETTE SMOKING: The facts are clear, cigarette smoking will shorten your life. Smoking can cause many illnesses along the way. As a healthcare provider, we recommend that you stop smoking. Assistance with quitting is available by contacting 6-797-LGIY-NOW. This is a free resource providing counseling, [...] Be sure to sign up for the [employer] patient portal, which gives you 29/08 access to your medical information ??? including these discharge instructions ??? using your computer, smartphone, or tablet. Just go to reQwip to get started. Questions? Call . [facility] would like to thank you for allowing us to assist you with your healthcare needs. JUAN Maravilla AMBER J, (or ambulatory services representative) have received the above patient education materials/instructions and have verbalized understanding: Patient Signature _ Date/Time Patient Trailer Body Assembler Signature (if needed) Date/Time Clinician/Hospital Trailer Body Assembler Signature (if needed) Date/Time documented in this encounter Plan of Treatment Upcoming Encounters Date Type Department Care Team (Late st Contact Info) Description 07/17/2024 11:[address] [facility] Wound & Ostomy Therapy [address] [place] [address] 08/28/2024 9:15 AM EDT Office Visit [facility] Urology - [address] [place] [address] Chandrika Santana, SINGLE NEEDLE TUFTING MACHINE OPERATOR [address] [place] [address] 04/17/2025 8:30 AM EDT Office Visit [facility] Cardiology - [place] [address] [place] [address] Tamara Sow PA-C [address] [facility] [address] [place] [address] documented as of this encounter Visit Diagnoses Not on filedocumented in this encounter Care Teams Brim Plater Relationship Specialty Start Date End Date Deandra Lopez, KRISTYN PCP - General Nurse Practitioner 04/18/22 06/03/24 Deandra Lopez, SINGLE NEEDLE TUFTING MACHINE OPERATOR [address] [place] [address] PCP - General Nurse Practitioner 06/04/24 documented as of this encounter
--- OUTSIDE RECORDS SUMMARY | 2024-07-16 15:18 | XMS_ITS | Encounter Summary ---
Author Organization [facility] Address [address] [place] [address] Care Team Providers Care Mail List Librarian Name Role Phone Deandra Lopez APRN Primary Care Provider +1- [phone] Deandra Lopez APRN Primary Care Provider +1- [phone] Encounter Details Date Type Department Care Team (Late st Contact Info) Description 08/21/2021 Transcribed Document [facility] Family Medicine [facility] [place] [address] ProviderElaine MD [address] [place] [id number] Social History Tobacco Use Types Packs/Day Years [...] Conversion Note - Historical ProviderMD - 08/21/2021 5:31 AM CDT Patient: DEMETRA MARTINEZ Age: 41 Years Sex: Female : 1980 Chief Complaint abd pain Primary Care Provider TAMARA, NOT LISTED History of Present Illness 41-year-old female with a 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 Began 2 days prior to presentation, no inciting event, exacerbating or relieving factors. CT revealed loculated intra-abdominal abscess. She had a white blood cell count of 13,000. Transfer to this facility for interventional radiology to drain. Review of Systems A 14 point review of systems was obtained and is noncontributory except as noted above. All past medical, social and family history reviewed. Vital Signs T: 37.6 ??C TMIN: 36.8 ??C TMAX: 37.6 ??C HR: 112(Peripheral) RR: 16 BP: 105/58 SpO2: 95% HT: 165.1 cm WT: 99 kg BMI: 36.3 Oxygen Settings (Last) Oxygen Therapy Mode: Nasal cannula (08/21/21 02:10:00) Oxygen Flow Rate: 2 Liter/Min (08/21/21 02:10:00) Physical Exam Based on new provisions and guidance offered in setting of COVID 19 outbreak and in order to preserve personal protective equipment in accordance with the flexibilities announced by [facility] limited examination is performed. General: Well appearing, [...] bilaterally. Psych: Cooperative Skin: No jaundice Assessment/Plan - iv abx - npo, ivf - bmp q4hx3 to avoid rapid na correction - insulin for glucose control - Parenteral analgesics for severe pain. Oral analgesics for mild to moderate pain. - Continue to monitor electrolytes and replete as appropriate - Pt high risk for vte, UFH for vte ppx. - Continue medications for chronic problems - Pt will require inpatient admission for >48 hrs for work up and stabilization of their condition - NSOC: Remains admitted - seen 08/21/2021 03:28:38 I have personally reviewed pertinent laboratory, ekg and imaging results, as well as documentation in the patient's emr. Laboratory and imaging orders per the above plan have been addressed, see orders below. Home medications have been reviewed. Patient's case, assessment and plan have been discussed on this date with patient and RN. Code Status Start: 08/21/21 3:24:00 EDT, Full Code, Continuous Order 1. Intra-abdominal abscess 2. Status post colectomy 3. Diabetes mellitus type II 4. Irritable bowel syndrome 5. Hyponatremia Orders: acetaminophen, 650 mg, Oral, Tab, Q6H, PRN for Pain (Mild 1-3), Routine, Start 08/21/21 3:54:00 EDT, 08/21/21 3:54:00 EDT acetaminophen-hydrocodone, 1 Tab, Oral, Tab, Q6H, PRN for Pain (Moderate 4-6), Routine, Start 08/21/21 3:54:00 EDT glucagon, 1 mg, IntraMuscular, Inj, Q15Min, PRN for Other (See Comment), Routine, Start 08/21/21 3:57:00 EDT, 08/21/21 3:57:00 EDT glucose, 16 Gram, 4 Tab, Chew, Tab, Q15Min, PRN for Other (See Comment), Routine, Start 08/21/21 3:57:00 EDT glucose, 25 Gram, IV Push, Inj, Q15Min, PRN for Other (See Comment), Routine, Start 08/21/21 3:57:00 EDT, 08/21/21 3:57:00 EDT glucose, 15 Gram 37.5 mL, Oral, Gel, Q15Min, PRN for Other (See Comment), Routine, Start 08/21/21 3:57:00 EDT, 08/21/21 3:57:00 EDT glucose, 25 Gram, IV Push, Inj, Q15Min, PRN for Other (See Comment), Routine, Start 08/21/21 3:57:00 EDT, 08/21/21 3:57:00 EDT glucose, 25 Gram, IV Push, Inj, Q15Min, PRN for Other (See Comment), Routine, Start 08/21/21 3:57:00 EDT, 08/21/21 3:57:00 EDT glucose, 12.5 Gram, IV Push, Inj, Q15Min, PRN for Other (See Comment), Routine, Start 08/21/21 3:57:00 EDT, 08/21/21 3:57:00 EDT heparin, 5,000 Units, SubCutaneous, Inj, Q8HInt, Routine, Start 08/21/21 4:00:00 EDT, 08/21/21 3:54:00 EDT hydrALAZINE, 10 mg, IV Push, Inj, Q6H, order duration: 24 Hour(s), PRN for Hypertension, Routine, Start 08/21/21 3:54:00 EDT, Stop 08/22/21 3:53:00 EDT, 08/21/21 3:54:00 EDT insulin regular, Scale A, SubCutaneous, Inj, Q6H, Routine, Start 08/21/21 6:00:00 EDT labetalol, 10 mg, IV Push, Inj, Q6H, order duration: 24 Hour(s), PRN for Hypertension, Routine, Start 08/21/21 3:54:00 EDT, Stop 08/22/21 3:53:00 EDT, 08/21/21 3:54:00 EDT morphine, 2 mg, IV Push, Inj, Q4H, order duration: 24 Hour(s), PRN for Pain (Severe 7-10), Routine, Start 08/21/21 3:54:00 EDT, Stop 08/22/21 3:53:00 EDT, 08/21/21 3:54:00 EDT ondansetron, 4 mg, IV Push, Inj, Q6H, order duration: 24 Hour(s), PRN for Nausea/Vomiting, Routine, Start 08/21/21 3:54:00 EDT, Stop 08/22/21 3:53:00 EDT, 08/21/21 3:54:00 EDT pantoprazole, 40 mg, IV Push, Inj, Daily, order duration: 24 Hour(s), Routine, Start 08/21/21 9:00:00 EDT, Stop 08/21/21 9:00:00 EDT, 08/21/21 3:54:00 EDT piperacillin-tazobactam + Sodium Chloride 0.9% intravenous solution 100 mL, 3.375 Gram, IV Piggyback, Inj, Q6HInt, infuse over 3 Hour(s), Start 08/21/21 10:00:00 EDT, 33.33 mL/Hr, Indication: Intraabdominal Infection Sodium Chloride 0.9% intravenous solution 1,000 mL, 1,000 mL, Bag Volume (mL) = 1,000, IntraVENous, Rate = 120 mL/Hr, start date 08/21/21 3:07:00 EDT, Routine, 2.13, m2 BMP Basic Metabolic Panel BMP Basic Metabolic Panel CBC no Diff (Hemogram) Communication to Nursing Communication to Nursing Communication to Nursing Communication to Nursing Communication to Nursing Consult to Pharmacy Consult to Physician Consult to Physician Culture Blood Culture Blood Culture MRSA Surveillance Diabetes Education (Nursing) Intake and Output Strict Lab Order Instructions to Nursing Medication Administration Instructions Notify Provider Notify Provider Notify Provider NPO (immediate) Patient Position Peripheral IV Insertion Platelet Count POC Glucose Resuscitation Status Seizure Precautions Seizure [...] removal of both ovaries, tubal, uterine ablation. Home Medications (20) Active BuSpar 10 mg, Oral, TID estradiol [...] 0.3. Last Used: July 2021. Family History cad Diagnostic Results No Radiology Results Found Lab Results Test Name Test Result Date/Time Sodium Level 132 mmol/L (Low) 08/21/2021 04:00 EDT Potassium Level 3.3 mmol/L (Low) 08/21/2021 04:00 EDT Chloride Level 96 mmol/L (Low) 08/21/2021 04:00 EDT Carbon Dioxide Level 27 mmol/L 08/21/2021 04:00 EDT Anion Gap 12 08/21/2021 04:00 EDT Glucose Level 134 mg/dL (High) 08/21/2021 04:00 EDT Blood Urea Nitrogen 4 mg/dL (Low) 08/21/2021 04:00 EDT Creatinine Level 0.90 mg/dL 08/21/2021 04:00 EDT eGFR >60 mL/min/1.73m2 08/21/2021 04:00 EDT eGFR NonAfrican >60 mL/min/1.73m2 08/21/2021 04:00 EDT Bun/Creatinine 4.4 (Low) 08/21/2021 04:00 EDT Calcium Level 8.2 mg/dL (Low) 08/21/2021 [...] EDT ALT 26 Units/Liter 08/21/2021 04:00 EDT WBC 11.7 K/uL (High) 08/21/2021 04:00 [...] EDT RDW 12.1 % 08/21/2021 04:00 EDT Procalcitonin 0.95 ng/mL 08/21/2021 04:00 EDT Additional Documentation Code Status Start: 08/21/21 3:24:00 EDT, Full Code, Continuous Order Electronically signed by [facility], [facility] Conversion Auto Inspection Specialist Cerner at 05/27/2022 4:59 PM CDT documented in this encounter Plan of Treatment Upcoming Encounters Date Type Department Care Team (Late st Contact Info) Description 07/17/2024 11:00 AM EDT Appointment [facility] Wound & Ostomy Therapy [address] [place] [address] 08/28/2024 9:15 AM EDT Office Visit [facility] Urology - [address] [place] [address] Chandrika Santana, MILL LABORER [address] [place] [address] 04/17/2025 8:30 AM EDT Office Visit [facility] Cardiology - [place] [address] [place] [address] Tamara Sow PA-C [address] [facility] [address] [place] [address] documented as of this encounter Visit Diagnoses Not on filedocumented in this encounter Care Teams Mail List Librarian Relationship Specialty Start Date End Date Deandra Lopez APRN PCP - General Nurse Practitioner 04/18/22 06/03/24 Deandra Lopez, MILL LABORER [address] [place] [address] PCP - General Nurse Practitioner 06/04/24 documented as of this encounter
--- OUTSIDE RECORDS SUMMARY | 2024-07-16 15:18 | XMS_ITS | Encounter Summary ---
Author Organization [facility] In iatives Address [address] [place] [address] Care Team Providers Care Nozzle Operator Name Role Phone Deandra Lopez APRN Primary Care Provider +1- [phone] Deandra Lopez APRN Primary Care Provider +1- [phone] Encounter Details Date Type Department Care Team (Late st Contact Info) Description 08/21/2021 Transcribed Document [facility] Family Medicine [facility] [place] [address] ProviderElaine MD [address] [place] [id number] Social History Tobacco Use Types Packs/Day Years [...] Conversion Note - Historical ProviderMD - 08/21/2021 8:07 AM CDT RX Interventions Entered On: 08/21/2021 8:08 EDT Performed On: 08/21/2021 8:07 EDT by Danae Valdivia RESIDENT-PHARMACIST Clinical Interventions Dose Adjustment by Pharmacy : Yes Danae Valdivia RESIDENT-PHARMACIST - 08/21/2021 8:07 EDT Dose Adjustment by Pharmacy Dose Adjustment by Pharmacy, Order : Zosyn Renal Dose Adjustment Consult Dose Adjustment by Pharmacy, Response : Accepted Dose Adjustment by Pharmacy, Notes : Based on patient's age, weight, and renal function, Zosyn appropriately dosed with 4.5g IV x 1, then 3.375g IV q6h. Dose Adjustment by Pharmacy, Value : 112 Dollar Dose Adjustment by Pharmacy, Time : 15 Minute(s) Danae Valdivia RESIDENT-PHARMACIST - 08/21/2021 8:07 EDT Electronically signed by Anahy, [facility] Conversion Mattress Inspector Cerner at 05/27/2022 4:43 PM CDT documented in this encounter Plan of Treatment Upcoming Encounters Date Type Department Care Team (Late st Contact Info) Description 07/17/2024 11:00 AM EDT Appointment [facility] Wound & Ostomy Therapy [address] [place] [address] 08/28/2024 9:15 AM EDT Office Visit [facility] Urology - [address] [place] [address] Chandrika Santana, DROP BOARD WORKER [address] [place] [address] 04/17/2025 8:30 AM EDT Office Visit [facility] Cardiology - [place] [address] [place] [address] Tamara Sow PA-C [address] [address] documented as of this encounter Visit Diagnoses Not on filedocumented in this encounter Care Teams Nozzle Operator Relationship Specialty Start Date End Date Deandra Lopez APRN PCP - General Nurse Practitioner 04/18/22 06/03/24 Deandra Lopez, DROP BOARD WORKER [address] [place] [address] PCP - General Nurse Practitioner 06/04/24 documented as of this encounter
--- OUTSIDE RECORDS SUMMARY | 2024-07-16 15:18 | XMS_ITS | Encounter Summary ---
Author Organization [facility] Address [address] [place] [address] Care Team Providers Care Speech Communication Instructor Name Role Phone Deandra Lopez APRN Primary Care Provider +1- [phone] Deandra Lopez APRN Primary Care Provider +1- [phone] Encounter Details Date Type Department Care Team (Late st Contact Info) Description 04/11/2018 Transcribed Document [facility] [place] [address] ProviderElaine MD [address] [place] [address] Social History Tobacco Use Types [...] Agata Conversion Note - Historical ProviderMD - 04/11/2018 9:35 AM ASSISTANT OPERATIONS MANAGER Discharge Instructions Entered On: 04/11/2018 9:37 EST Performed On: 04/11/2018 9:35 EST by CHANDRIKA SUNG RN DC Instructions HWD Diet After Discharge : Heart healthy diet, Diabetic diet, Other: drink extra fluids for the next couple of days to flush dye from you CHANDRIKA SUNG RN - 04/11/2018 9:39 EST Stroke/TIA Discharge Ins : N/A Heart Failure Discharge Ins : N/A Warfarin Discharge Ins : N/A Activity After Discharge : Rest and relax today, No strenuous activities, Other: do not lift over one pound with your right arm for 2 days or 5 pounds total for 5 days Driving After Discharge : Other: do not drive for 24 hours after the procedure Showering/Bathing : Other: you may remove the dressing from your right arm tomorrow and then gently clean with soap and water daily Wound/Incision Care After Discharge : Keep operative site/wound site clean and dry, Other: remove the dressing from your right arm tomorrow and then gently clean with soap and water daily CHANDRIKA SUNG RN - 04/11/2018 9:35 EST Special Instructions : If bleeding, apply pressure as shown and call 911.. STOP YOUR METFORMIN for the next 48 hours, then restart as prescribed. CHANDRIKA SUNG RN - 04/11/2018 9:39 EST Electronically signed by Anahy [facility] Conversion Mobile Equipment Operator Cerner at 05/27/2022 4:39 PM CDT documented in this encounter Plan of Treatment Upcoming Encounters Date Type Department Care Team (Late st Contact Info) Description 07/17/2024 11:00 AM EDT Appointment [facility] Wound & Ostomy Therapy [address] [place] [address] 08/28/2024 9:15 AM EDT Office Visit [facility] Urology - [address] [place] [address] Chandrika Santana, CROP PULLER [address] [place] [address] 04/17/2025 8:30 AM EDT Office Visit [facility] Cardiology - [place] [address] [place] [address] Tamara Sow PA-C 227 [facility] [address] [place] [address] documented as of this encounter Visit Diagnoses Not on filedocumented in this encounter Care Teams Speech Communication Instructor Relationship Specialty Start Date End Date Deandra Lopez APRN PCP - General Nurse Practitioner 04/18/22 06/03/24 Deandra Lopez, KRISTYN [address] [place] [address] PCP - General Nurse Practitioner 06/04/24 documented as of this encounter
== END 2024-07-15 23:59 | disposition home or self-care (01) ==
LOC: LAB.DROPOF 07-16 15:08
PROVIDERS: PCP Student in an Organized Health Care Education/Training Program; Visit Provider Student in an Organized Health Care Education/Training Program
DX: B34.9 Viral infection, unspecified (principal)
CPT/HCPCS: 87635